=== PATIENT | female | born 1955 | race Caucasian/White ===

== ENCOUNTER → 2016-06-18 | Outpatient (CLI) | payer MEDICARE, OTHER ==
--- NOTE | 2016-06-18 12:31 | XR ---
EXAMINATION TYPE: XR chest 2V DATE OF EXAM: 06/18/2016 12:21 PM HISTORY: R09.89 respiratory symptoms M25.822 joint disorder. REFERENCE: NONE. FINDINGS: The lungs are overinflated but clear. Pleural spaces are clear. Heart size is normal. There is mild hypertrophic spondylosis within the spine. IMPRESSION: COPD.
--- NOTE | 2016-06-18 12:45 | XR ---
EXAMINATION TYPE: XR elbow complete RT DATE OF EXAM ORDERED: 06/18/2016 12:39 PM HISTORY: R09.89 respiratory symptoms M25.822 joint disorder. COMPARISON: None. FINDINGS: No fracture, dislocation or joint effusion is seen. The olecranon versus prominent. IMPRESSION: 1. NO ACUTE OSSEOUS LESION. 2. PROMINENCE OF THE OLECRANON BURSA.
== END ==
LOC: RADXRMAIN 11:45
PROVIDERS: ATTEND Family Medicine
DX: M25.822 Other specified joint disorders, left elbow (principal); J44.9 Chronic obstructive pulmonary disease, unspecified
CPT/HCPCS: 71020

== ENCOUNTER → 2016-08-13 | Outpatient (CLI) | payer MEDICARE, OTHER ==
--- NOTE | 2016-08-13 13:28 | XR ---
EXAMINATION TYPE: XR shoulder complete RT DATE OF EXAM ORDERED: 08/13/2016 HISTORY: M25.519 pain in right shoulder. COMPARISON: None. FINDINGS: There hypertrophic changes in the right AC joint. No fracture, dislocation or other acute osseous lesion is seen. IMPRESSION: 1. NO ACUTE OSSEOUS LESION. 2. HYPERTROPHIC CHANGE, RIGHT AC JOINT.
== END | disposition home or self-care (01) ==
LOC: RADXRMAIN 12:48
PROVIDERS: ATTEND Family Medicine
DX: M25.811 Other specified joint disorders, right shoulder (principal)

== ENCOUNTER → 2016-11-02 | Outpatient (CLI) | payer MEDICARE, OTHER ==
--- NOTE | 2016-11-04 12:06 | MM ---
Reason for exam: screening (asymptomatic). Last mammogram was performed 1 year ago. History: Patient is postmenopausal and is nulliparous. Physical Findings: A clinical breast exam by your physician is recommended on an annual basis and results should be correlated with mammographic findings. MG 3D Screening Mammo W/Cad Bilateral CC and MLO view(s) were taken. Prior study comparison: October 28, 2015, bilateral MG 3d screening mammo w/cad. September 18, 2014, bilateral MG screening mammo w CAD. There are scattered fibroglandular densities. No suspicious abnormality. No significant changes when compared with prior studies. ASSESSMENT: Negative, BI-RAD 1 RECOMMENDATION: Routine screening mammogram of both breasts in 1 year.
== END | disposition home or self-care (01) ==
LOC: RADMAMWWP 13:12
PROVIDERS: ATTEND Family Medicine
DX: Z12.31 Encounter for screening mammogram for malignant neoplasm of breast (principal)
CPT/HCPCS: 77063; G0202

== ENCOUNTER → 2018-01-17 | Outpatient (CLI) | payer MEDICARE, OTHER ==
--- NOTE | 2018-01-19 09:32 | MM ---
Reason for exam: screening (asymptomatic). Last mammogram was performed 1 year and 2 months ago. History: Patient is postmenopausal and is nulliparous. MG 3D Screening Mammo W/Cad Bilateral CC and MLO view(s) were taken. Prior study comparison: November 02, 2016, bilateral MG 3d screening mammo w/cad. October 28, 2015, bilateral MG 3d screening mammo w/cad. The breast tissue is almost entirely fat. No significant changes when compared with prior studies. ASSESSMENT: Negative, BI-RAD 1 RECOMMENDATION: Routine screening mammogram of both breasts in 1 year.
== END | disposition home or self-care (01) ==
LOC: RADMAMWWP 11:18
PROVIDERS: ATTEND Family Medicine
DX: Z12.31 Encounter for screening mammogram for malignant neoplasm of breast (principal)
CPT/HCPCS: 77063; 77067

== ENCOUNTER → 2018-02-20 | Outpatient (CLI) | payer MEDICARE, OTHER ==
--- NOTE | 2018-02-20 13:39 | XR ---
EXAMINATION TYPE: XR chest 2V DATE OF EXAM: 02/20/2018 COMPARISON: 06/18/2016 HISTORY: 62 year-old female other chest pain TECHNIQUE: Frontal and lateral views FINDINGS: Heart normal size. Mild elongation thoracic aorta. Mild interstitial prominence is unchanged. Some st wally scarring or atelectasis in the lung bases. No consolidation or pleural effusion. IMPRESSION: Chronic changes, possible bronchitis/asthma. Otherwise, no acute cardiopulmonary process.
== END ==
LOC: RADXRMAIN 11:44
PROVIDERS: ATTEND Family Medicine
DX: R07.89 Other chest pain (principal)
CPT/HCPCS: 71046

== ENCOUNTER → 2018-03-13 | Outpatient (CLI) | payer MEDICARE, OTHER ==
[~2018-03-13] MED LIST: REGADENOSON 0.4 MG/5 ML SYRINGE IV ONE
--- NOTE | 2018-03-13 11:21 | NM ---
EXAMINATION TYPE: NM stress lexiscan cardiolite DATE OF EXAM: 03/13/2018 COMPARISON: NONE HISTORY: History of tobacco use quit 9 years ago, COPD, family history of coronary artery disease, hy pertension, diabetes, angina, and hypercholesterolemia presents with chest pain, palpitations, and di fficulty in breathing. TECHNIQUE: After the intravenous administration of 10.4 mCi Tc 99m Sestamibi - Cardiolite resting SP ECT images acquired 45 minutes post injection. The patient received 0.4mg Lexiscan, 25.9 mCi Tc 99m Sestamibi - Stress images obtained [address] injection FINDINGS: Review of stress and rest SPECT images demonstrates no distinct perfusion abnormality. Gated analysi s shows normal wall motion with an estimated left ventricular ejection fraction of 67 %. IMPRESSION: No scintigraphic evidence for reversible ischemia.
--- NOTE | 2018-03-14 07:39 | EST ---
EXERCISE STRESS AGE: 62 SEX: F HT: 5'6" WT: 195 PROTOCOL: Lexiscan Cardiolite Stress Test HEART RATE REST: 68 BLOOD PRESSURE REST: 130/72 MAXIMUM HEART RATE ACHIEVED: 76 MAXIMUM BLOOD PRESSURE: 117/67 85% MPHR: 133 100% MPHR: 157 INDICATIONS: Chest pain. CLINICAL INFORMATION: Baseline EKG revealed normal sinus rhythm without significant ST-T changes. With Lexiscan administration, heart rate changed from 68-76 beats per minute blood pressure changed from 130/72 to 117/67. EKG was unremarkable and patient did not have any significant symptoms. By EKG criteria, this is unremarkable Lexiscan stress test. The nuclear scan results which are more pertinent, will be reported by the radiologist. MMODL / IJN: [id number] /
== END ==
LOC: RADNMMAIN 08:04
PROVIDERS: ATTEND Family Medicine
DX: R07.89 Other chest pain (principal)
CPT/HCPCS: 93017; 78452; A9500; J2785

== ENCOUNTER → 2018-12-01 | Outpatient (CLI) | payer MEDICARE ==
--- NOTE | 2018-12-01 16:01 | US ---
EXAMINATION TYPE: US pelvic complete DATE OF EXAM: 12/01/2018 COMPARISON: NONE CLINICAL HISTORY: R10.2 pelvic and perineal pain. Intermittent pelvic pain x 2 months, takes laxative s, post gastric bypass 3 years ago, menopause mid to late 50's; TECHNIQUE: Transvaginal (TV). Transvaginal sonographic images were medically necessary to better as sess anatomy as bladder not full. Date of LMP: postmenopausal EXAM MEASUREMENTS: Uterus: 4.8 x 3.0 x 2.3 cm Endometrial Stripe: 0.4 cm Right Ovary: not seen Left Ovary: 1.5 x 1.1 x 1.2 cm 1. Uterus: anteverted; multiple small Nabothian Cysts in cervix 2. Endometrium: thickness wnl for postmenopause status 3. Right Ovary: not seen; overlying bowel gas is noted 4. Left Ovary: wnl, small follicles 5. Bilateral Adnexa: wnl 6. Posterior cul-de-sac: wnl IMPRESSION: 1. Normal pelvic ultrasound as visualized.
== END ==
LOC: RADUSWWP 14:45
PROVIDERS: ATTEND Family Medicine
DX: R10.2 Pelvic and perineal pain (principal)
CPT/HCPCS: 76830

== ENCOUNTER → 2019-01-17 | Outpatient (CLI) | payer MEDICARE ==
--- NOTE | 2019-01-17 15:50 | P.HPBAR ---
Bariatric H&P - History & Physicial H&P Date: 01/17/19 History & Physicial: Visit/CC: Patient initial contact: Initial weight: 156.263 kg Initial weight in pounds: Height: Initial BMI: Last weight: Current weight: Current weight in pounds: Current BMI: [place] body weight (based on NIH guidelines): Excess body weight loss: The patient is a 63 year-old F who presents for Bariatric Assessment. DATE OF SERVICE: 01/17/2019 CHIEF COMPLAINT: Follow-up gastric bypass. HISTORY OF PRESENT ILLNESS: Samantha Priest is a 63-year-old female who is status post Laila-en-Y gastric bypass January 13, 2015. She is 4 years out. She comes in with weight gain after her last visit 3 years ago. Her lowest weight was in the 170s. She comes in with epigastric abdominal pain and bilate ral lower abdominal pain. She has foul flatus. She reports falling. Her memory is sporadic. She take [employer] MVI. She has constipation. She reports emesis for many years. She reports nausea. She denies blood in stools. She reports lower abdominal pain. Her last colonoscopy was 5 years ago. She has family history of colon cancer. Her aunt had Crohn's disease. She is back on diabetic medications. Her highest weight in the program was 345 pounds for her 5 feet 6 inches frame. Her ideal body weight is 154 pounds. Today she comes in weighing 202 pounds from 223 pounds, 3 years ago. She has lost 21 pounds in 3 years. She has lost 143 pounds, lifetime. Percent excess weight loss is 75 %. Body mass index has been reduced from 55.8 to 32.7. PAST MEDICAL HISTORY: 1. Osteoarthritis of bilateral knees. 2. Hypercholesterolemia. 3. Diabetes type 2. 4. Dyslipidemia. 5. Hypertension. 6. Depression. 7. Morbid obesity due to excess calories, BMI 55.8 initial PAST SURGICAL HISTORY: 1. Appendectomy. 2. Adenoidectomy. 3. Cholecystectomy. 4. Bilateral knee replacement. 5. Tonsillectomy. 6. D and C. 7. Bilateral cataract extraction. 8. Status post Laila-en-Y gastric bypass. MEDICATIONS: 1. Calcium citrate. 2. Multivitamin. 3. [place]. 4. Lasix. 5. Cymbalta. ALLERGIES: 1. PENICILLIN. 2. TRACE METALS. SOCIAL HISTORY: Remote tobacco use. Denies any active alcohol use. FAMILY HISTORY: Pertinent for stomach cancer in her grandmother's side. Also she had a cousin who of rectal cancer. Denies any family history of food allergies of blood clots. She did have a mother who had DVT from taking control. No reports of inflammatory bowel disease. REVIEW OF SYSTEMS: CONSTITUTIONAL: Her highest weight in the program was 345 pounds for her 5 feet 6 inches frame. Her ideal body weight is 154 pounds. Body mass index has been reduced from 55.9. MUSCULOSKELETAL: Moderate improvement of lower back pain including hip and knee pain. ENDOCRINE: Resolved diabetes type 2. She is off insulin. GASTROINTESTINAL: Has change in bowel habits. Resolved gastroesophageal reflux disease. CARDIOVASCULAR: Moderate improvement of hypertension. RESPIRATORY: Reduction of use of her CPAP machine. HEENT: Has poor dentition. She is edentulous of the maxilla. Reports of dysphagia. NEURO: No gross or secretions stroke or seizure disorders. PSYCH: History of depression without suicidal ideation. SKIN: No skin cancer. No rash GENITOURINARY: No blood in urine. No bladder hesistancy HEME: No recent DVTs. PHYSICAL EXAM: VITAL SIGNS: 5 feet 6 inches, 202 pounds, BMI 32.2 Vital Signs Temp 98.3 F 01/17/19 15:54 Pulse 102 H 01/17/19 15:54 Resp BP 138/86 01/17/19 15:54 Pulse Ox ABDOMEN: No palpable incisional hernias. No acute panniculitis. MUSCULOSKELETAL: No clubbing, cyanosis, or edema. GENERAL: Well-developed pleasant female in no acute distress. PSYCH: Appropriate affect. Alert and oriented to person, place and time. HEENT: No scleral icterus. Wears glasses. Extraocular movements grossly intact. Moist buccal mucosa. NECK: Supple without lymphadenopathy. CHEST: Unlabored respirations. Equal bilateral excursions. CARDIOVASCULAR: Tachycardia. Distal 2+ pulses. SKIN: Well perfused. Good skin turgor. NEURO: Cranial nerves I to XII grossly intact. No focal or lateralizing signs. ASSESSMENT: 1. Morbid obesity due to excess caloric intake. 2. Body mass index reduced from 55.9 to 32.2. 3. Status post Laila-en-Y gastric bypass. 4. Osteoarthritis of the bilateral knees, moderate, improved. 5. Diabetes, type 2, insulin-dependent. 6. Dietary surveillance and counseling. 7. Osteoarthritis of the bilateral knees due to morbid obesity. 8. Iron deficiency 9. Hypomagnesium. 10. Protein malnutrition. 11. Dysphagia 12. Change in bowel habits. PLAN: 1. Recommend CT of the abdomen and pelvis for evaluation for small bowel o bstruction 2. Recommend upper endoscopy for dysphagia. 3. Recommend lower endoscopy for change in bowel habits 4. Recommend bariatric labs for nutritional deficiencies. Laboratory Last Values WBC 8.8 k/uL (3.8-10.6) 01/17/19 16:09 RBC 4.70 m/uL (3.80-5.40) 01/17/19 16:09 Hgb 13.9 gm/dL (11.4-16.0) 01/17/19 16:09 Hct 42.6 % (34.0-46.0) 01/17/19 16:09 MCV 90.7 fL (80.0-100.0) 01/17/19 16:09 MCH 29.7 pg (25.0-35.0) 01/17/19 16:09 MCHC 32.7 g/dL (31.0-37.0) 01/17/19 16:09 RDW 13.1 % (11.5-15.5) 01/17/19 16:09 Plt Count 228 k/uL (150-450) 01/17/19 16:09 PT 10.6 sec (9.0-12.0) 01/17/19 16:09 INR 1.0 (<1.2) 01/17/19 16:09 APTT 28.1 sec (22.0-30.0) 01/17/19 16:09 Sodium 144 mmol/L (135-145) 01/17/19 16:09 Potassium 4.0 mmol/L (3.5-5.5) 01/17/19 16:09 Chloride 105 mmol/L (96-109) 01/17/19 16:09 Carbon Dioxide 29.7 mmol/L (21.6-31.8) 01/17/19 16:09 Anion Gap 9.30 mmol/L (4.00-12.00) 01/17/19 16:09 BUN 11.0 mg/dL (9.0-27.0) 01/17/19 16:09 Creatinine 0.6 mg/dL (0.6-1.5) 01/17/19 16:09 Est GFR (CKD-EPI)AfAm 111.6 (60.0-200.0) 01/17/19 16:09 Est GFR (CKD-EPI)NonAf 96.3 (60.0-200.0) 01/17/19 16:09 BUN/Creatinine Ratio 18.33 Ratio (12.00-20.00) 01/17/19 16:09 Glucose 99 mg/dL (70-110) 01/17/19 16:[address] Glu mg/dL 137 01/17/19 16:09 Hemoglobin A1c 6.4 % (4.0-6.0) H 01/17/19 16:09 Calcium 9.2 mg/dL (8.7-10.3) 01/17/19 16:09 Phosphorus 3.4 mg/dL (2.4-5.1) 01/17/19 16:09 Magnesium 1.3 mg/dL (1.5-2.4) L 01/17/19 16:09 Iron 39 ug/dL (50-170) L 01/17/19 16:09 TIBC 334 ug/dL (228-460) 01/17/19 16:09 % Saturation 11.68 (12.00-45.00) L 01/17/19 16:09 Ferritin 26.3 ng/mL (10.0-291.0) 01/17/19 16:09 Total Bilirubin 0.2 mg/dL (0.3-1.2) L 01/17/19 16:09 AST 31 U/L (13-35) 01/17/19 16:09 ALT 21 U/L (8-44) 01/17/19 16:09 Alkaline Phosphatase 137 U/L (41-126) H 01/17/19 16:09 Total Protein 6.1 g/dL (6.2-8.2) L 01/17/19 16:09 Albumin 4.10 g/dL (3.80-4.90) 01/17/19 16:09 Globulin 2.0 g/dL (1.6-3.3) 01/17/19 16:09 Albumin/Globulin Ratio 2.05 g/dL (1.60-3.17) 01/17/19 16:09 Prealbumin 16.0 mg/dL (18.0-42.0) L 01/17/19 16:09 Triglycerides 96.0 mg/dL (0.0-149.0) 01/17/19 16:09 Cholesterol 127 mg/dL (0-200) 01/17/19 16:09 LDL Cholesterol, Calc 45.8 mg/dL (0.0-131.0) 01/17/19 16:09 VLDL Cholesterol, Calc 19.20 mg/dL (5.00-40.00) 01/17/19 16:09 HDL Cholesterol 62.0 mg/dL (40.0-60.0) H 01/17/19 16:09 Cholesterol/HDL Ratio 2.05 01/17/19 16:09 Vitamin A 47 ug/dL (38-106) 01/17/19 16:09 Vitamin B1 83 ug/L (38-122) 01/17/19 16:09 Vitamin B12 475.0 pg/mL (200.0-944.0) 01/17/19 16:09 Vitamin D 25-Hydroxy 35.1 ng/mL (30.0-100.0) 01/17/19 16:09 Folate >24.0 ng/mL 01/17/19 16:09 TSH 1.060 uIU/mL (0.350-5.500) 01/17/19 16:09 PTH Intact 57.5 pg/mL (14.0-72.0) 01/17/19 16:09 Copper 987 ug/L (810-1990) 01/17/19 16:09 Selenium 119 mcg/L (63-160) 01/17/19 16:09 Zinc 80 ug/dL (60-130) 01/17/19 16:09 Magnesium is low Iron is low Total protein is low Pre-albumin is low Past Medical History Past Medical History: Chest Pain / Angina, COPD, Diabetes Mellitus, GERD/Reflux, Hyperlipidemia, Hypertension, Osteoarthritis (OA), Skin Disorder, Sleep Apnea/CP AP/BIPAP Additional Past Medical History / Comment(s): 01/13/15 Pt admitted to floor s/p laparoscopic Laila En Y gastric bypass. Other HX: IDDM type II, PM>2 YRS,VARICOSE VEINS, NEUROPATHY MIR LEGS, arthritis bilateral knees. History of Any Multi-Drug Resistant Organisms: None Reported Past Surgical History: Adenoidectomy, Appendectomy, Bariatric Surgery, Cholecystectomy, Orthopedic Surgery, Tonsillectomy Additional Past Surgical History / Comment(s): 01/13/15 Lap laila en Y gastric bypass. Other SX: MIR KNEE ARTHROSCOPIES, MIR KNEE REPLACEMENTS, D&C, MIR CATARACTS Past Anesthesia/Blood Transfusion Reactions: No Reported Reaction Past Psychological History: Anxiety, Depression Smoking Status: Former smoker - Past Family History Mother Family Medical History: Cancer, Deep Vein Thrombosis (DVT) Results - Labs 01/17/19 16:09 01/17/19 16:09 Bariatric Checklist Checklist: Plan: Checklist: EGD: 1. Hiatal hernia: 2. H. Pylori: HgbA1c: Vitamin D: Smoking: Former smoker Primary care physician referral: Psychiatry clearance: Cardiology clearance: Sleep study: Diet journal: VTE risk score: VTE risk level: Rehab needs at discharge:
[2019-01-17 16:27] VITALS: BP 138/86; PULSE 102; TEMP 98.3; BMI 32.1
[2019-01-17 16:57] LABS: HCT 42.6 % (34.0-46.0); HGB 13.9 gm/dL (11.4-16.0); MCH 29.7 pg (25.0-35.0); MCHC 32.7 g/dL (31.0-37.0); MCV 90.7 fL (80.0-100.0); Mean Platelet Volume 7.1; Platelet Count 228 k/uL (150-450); RDW 13.1 % (11.5-15.5); WBC 8.8 k/uL (3.8-10.6)
[2019-01-17 17:08] LABS: Partial Thromboplastin Time 28.1 sec (22.0-30.0); Prothrombin Time 10.6 sec (9.0-12.0)
[2019-01-17 23:49] LABS: Ferritin 26.3 ng/mL (10.0-291.0)
[2019-01-17 23:53] LABS: % Iron Saturation 11.68 (12.00-45.00); ALT 21 U/L (8-44); AST 31 U/L (13-35); African American GFR (CKD) 111.6 (60.0-200.0); Albumin/Globulin Ratio 2.05 (1.60-3.17); Alkaline Phosphatase 137 U/L (41-126); BUN/Creat Ratio 18.33 Ratio (12.00-20.00); Calcium 9.2 mg/dL (8.7-10.3); Carbon Dioxide 29.7 mmol/L (21.6-31.8); Chloride 105 mmol/L (96-109); Chol/HDL Ratio 2.05; Cholesterol 127 mg/dL (0-200); Folate, Serum >24.0 ng/mL; Glucose 99 mg/dL (70-110); Iron 39 ug/dL (50-170); LDL Cholesterol,Calculated 45.8 mg/dL (0.0-131.0); Magnesium 1.3 mg/dL (1.5-2.4); Non-African American GFR(CKD) 96.3 (60.0-200.0); Phosphorus 3.4 mg/dL (2.4-5.1); Sodium 144 mmol/L (135-145); Total Bilirubin 0.2 mg/dL (0.3-1.2); Total Iron Binding Capacity 334 ug/dL (228-460); Total Protein 6.1 g/dL (6.2-8.2)
[2019-01-18 04:25] LABS: Hemoglobin A1C 6.4 % (4.0-6.0)
[2019-01-18 12:22] LABS: Zinc, Serum 80 ug/dL (60-130)
[2019-01-18 13:41] LABS: Vitamin A 47 ug/dL (38-106)
[2019-01-19 09:51] LABS: Vit B1(Thiamine) 83 ug/L (38-122)
[2019-01-29 11:27] LABS: Selenium 119 mcg/L (63-160)
== END | disposition home or self-care (01) ==
LOC: BARWHC3 14:01
PROVIDERS: ATTEND Surgery Plastic and Reconstructive Surgery
DX: E66.01 Morbid (severe) obesity due to excess calories (principal); Z68.36 Body mass index [BMI] 36.0-36.9, adult; E11.9 Type 2 diabetes mellitus without complications; Z71.3 Dietary counseling and surveillance; M17.0 Bilateral primary osteoarthritis of knee; E21.1 Secondary hyperparathyroidism, not elsewhere classified; E89.1 Postprocedural hypoinsulinemia; D50.9 Iron deficiency anemia, unspecified; K90.9 Intestinal malabsorption, unspecified; E55.9 Vitamin D deficiency, unspecified; K74.1 Hepatic sclerosis; K50.90 Crohn's disease, unspecified, without complications; Z86.39 Personal history of other endocrine, nutritional and metabolic disease; Z87.891 Personal history of nicotine dependence; Z90.49 Acquired absence of other specified parts of digestive tract; N19 Unspecified kidney failure; Z98.84 Bariatric surgery status; Z98.890 Other specified postprocedural states; Z79.4 Long term (current) use of insulin; Z79.891 Long term (current) use of opiate analgesic; Z79.899 Other long term (current) drug therapy; Z88.0 Allergy status to penicillin; Z91.048 Other nonmedicinal substance allergy status
CPT/HCPCS: 84255; 84134; 84425; 80061; 80053; 82607; 82728; 82525; 82746; 83540; 83550; 83735; 84100; 84443; 84590; 84630; 85027; 85610; 85730; 82306; 83970; 83036; G0463; 99211

== ENCOUNTER 2019-01-22 19:14 | Emergency (ER) | payer MEDICARE ==
[2019-01-22 19:22] VITALS: TEMP 98.9
[2019-01-22] MEDS ORDERED: SODIUM CHLORIDE 0.9% 1,000 ML IV STA ×2 (19:38→21:55)
[2019-01-22] MEDS ORDERED: IOPAMIDOL CONTRAST (ORAL USE) VIAL PO PRN (20:28)
[2019-01-22 20:39] LABS: Basophils # (A) 0.1 k/uL (0-0.2); Basophils % (A) 1 %; Eosinophils # (A) 0.2 k/uL (0-0.7); Eosinophils % (A) 2 %; HCT 42.8 % (34.0-46.0); HGB 14.3 gm/dL (11.4-16.0); Lymphocytes # (A) 2.1 k/uL (1.0-4.8); Lymphocytes % (A) 21 %; MCH 29.9 pg (25.0-35.0); MCHC 33.3 g/dL (31.0-37.0); MCV 89.7 fL (80.0-100.0); Mean Platelet Volume 7.2; Monocytes # (A) 0.5 k/uL (0-1.0); Monocytes % (A) 5 %; Neutrophils # (A) 7.1 k/uL (1.3-7.7); Neutrophils % (A) 71 %; Platelet Count 216 k/uL (150-450); RBC 4.77 m/uL (3.80-5.40)
[2019-01-22 20:46] LABS: ALT 23 U/L (9-52); AST 29 U/L (14-36); African American GFR (CKD) >90 (>60 ml/min/1.73 sqM); Alkaline Phosphatase 116 U/L (38-126); Amylase 62 U/L (30-110); Anion Gap 9 mmol/L; Blood Urea Nitrogen 10 mg/dL (7-17); Calcium 9.7 mg/dL (8.4-10.2); Carbon Dioxide 28 mmol/L (22-30); Chloride 103 mmol/L (98-107); Glucose 162 mg/dL (74-99); Non-African American GFR(CKD) >90 (>60 ml/min/1.73 sqM); Potassium 4.4 mmol/L (3.5-5.1); Sodium 140 mmol/L (137-145); Total Bilirubin 0.5 mg/dL (0.2-1.3); Total Protein 7.1 g/dL (6.3-8.2)
[2019-01-22 20:59] LABS: Appearance,Urine Clear (Clear); Bilirubin,Urine Negative (Negative); Blood,Urine Negative (Negative); Color,Urine Yellow; Glucose,Urine (UA) Negative (Negative); Ketones,Urine 1+ (Negative); Leukocyte Esterase,Urine Trace (Negative); Mucus,Urine Rare /hpf; Nitrite,Urine Negative (Negative); PH, Urine 7.5 (5.0-8.0); Protein,Urine Trace (Negative); RBC,Urine 1 /hpf (0-5); Specific Gravity,Urine 1.021 (1.001-1.035)
--- NOTE | 2019-01-22 21:17 | CT ---
EXAMINATION TYPE: CT abdomen pelvis w con DATE OF EXAM: 01/22/2019 COMPARISON: 02/18/2017 HISTORY: Epigastric pain x couple days with nausea. CT DLP: 1324.5 mGycm CONTRAST: CT scan of the abdomen and pelvis is performed with Oral Contrast and with IV Contrast, patient injec matthias with 100 mL of Isovue 300. FINDINGS: LUNG BASES-: No visible nodule. No infiltrate. LIVER/GB: The gallbladder is surgically absent. No space occupying hepatic lesion. Biliary tree is of normal caliber. PANCREAS: Mild inflammatory change surrounds the pancreas compatible with pancreatitis. No abnormal c ollection. SPLEEN: No splenic enlargement. No lesion seen. ADRENALS: No nodule. No thickening. KIDNEYS/BLADDER: No hydronephrosis. No nephrolithiasis. No distinct renal mass. Urinary bladder g rossly unremarkable. BOWEL: Normal appendix. Normal bowel caliber. No inflammation. Postoperative changes of the stomach and small bowel. GENITAL ORGANS: No gross abnormality. LYMPH NODES: No greater than 1cm abdominal or pelvic lymph nodes are appreciated. AORTA: No significant abnormality. OSSEOUS STRUCTURES: No significant abnormality is seen. OTHER: No significant additional abnormality is seen. IMPRESSION: 1. Findings compatible with mild acute pancreatitis.
[2019-01-22 21:58] VITALS: RESP 16
[2019-01-22] MEDS ORDERED: SODIUM CHLORIDE 0.9% 500 ML IV STA (22:03)
--- NOTE | 2019-01-22 22:08 | ED ---
General Adult HPI - General Chief complaint: Abdominal Pain Stated complaint: TIGHTNESS IN CHEST Time Seen by Provider: 01/22/19 19:36 Source: patient, RN notes reviewed, old records reviewed Mode of arrival: ambulatory Limitations: no limitations - History of Present Illness Initial comments: 63-year-old female patient past history significant for gastric bypass in 2014 presents ED chief complaint epigastric pain. Patient reports this pain has been ongoing for approximately 2 weeks. Describes it as a dull pain. Denies any association of food. Denies any pain in any of the areas, shortness of breath. Systemic: Pt denies fatigue, fever/chills, rash. Pt denies weakness, night sweats, weight loss. Neuro: Pt denies headache, visual disturbances, syncope or pre-syncope. HEENT: Pt denies ocular discharge or irritation, otalgia, rhinorrhea, pharyn gitis or notable lymphadenopathy. Cardiopulmonary: Pt denies chest pain, SOB, heart palpitations, dyspnea on exertion. Abdominal/GI: Pt denies abdominal pain, n/v/d. : Pt denies dysuria, burning w/ urination, frequency/urgency. Denies new onset urinary or bowel incontinence. MSK: Pt denies myalgia, loss of strength or function in extremities. Neuro: Pt denies new onset weakness, paresthesias. - Related Data Home Medications Medication Instructions Recorded Confirmed DULoxetine HCL [Cymbalta] 60 mg PO BID 09/10/13 01/17/19 Multivitamins, Thera [Theragran] 3 tab PO DAILY 01/02/15 01/17/19 Bisacodyl [Dulcolax] 5 mg PO DAILY 01/17/19 01/17/19 Lisinopril [Zestril] 5 mg PO DAILY 01/17/19 01/17/19 Ranitidine HCl [Zantac] 150 mg PO DAILY 01/17/19 01/17/19 Simvastatin [Zocor] 20 mg PO DAILY 01/17/19 01/17/19 sitaGLIPtin [Januvia] 25 mg PO DAILY 01/17/19 01/17/19 traZODone HCL [Desyrel] 100 mg PO DAILY 01/17/19 01/17/19 Previous Rx's Medication Instructions Recorded Vitamin A 8,000 unit PO DAILY #90 capsule 10/05/16 Allergies Allergy/AdvReac Type Severity Reaction Status Date / Time Penicillins Allergy Severe Unknown Verified 01/22/19 19:22 Childhood TRACE METALS Allergy itching,rachna Uncoded 01/22/19 19:22 h Review of Systems ROS Statement: Those systems with pertinent positive or pertinent negative responses have been documented in the HPI. ROS Other: All systems not noted in ROS Statement are negative. Past Medical History Past Medical History: Chest Pain / Angina, COPD, Diabetes Mellitus, GERD/Reflux, Hyperlipidemia, Hypertension, Osteoarthritis (OA), Skin Disorder, Sleep Apnea/CPAP/BIPAP Additional Past Medical History / Comment(s): 01/13/15 Pt admitted to floor s/p laparoscopic Laila En Y gastric bypass. Other HX: IDDM type II, PM>2 YRS,VARICOSE VEINS, NEUROPATHY MIR LEGS, arthritis bilateral knees. History of Any Multi-Drug Resistant Organisms: None Reported Past Surgical History: Adenoidectomy, Appendectomy, Bariatric Surgery, Cholecystectomy, Orthopedic Surgery, Tonsillectomy Additional Past Surgical History / Comment(s): 01/13/15 Lap laila en Y gastric bypass. Other SX: MIR KNEE ARTHROSCOPIES, MIR KNEE REPLACEMENTS, D&C, MIR CATARACTS Past Anesthesia/Blood Transfusion Reactions: No Reported Reaction Past Psychological History: Anxiety, Depression Smoking Status: Former smoker Past Alcohol Use History: None Reported Past Drug Use History: None Reported - Past Family History Mother Family Medical History: Cancer, Deep Vein Thrombosis (DVT) General Exam - General Exam Comments Initial Comments: Constitutional: NAD, AOX3, Pt has pleasant affect. HEENT: NC/AT, trachea midline, neck supple, no lymphadenopathy. Posterior pharynx non erythematous, without exudates. External ears appear normal, without discharge. Mucous membranes moist. Eyes PERRLA, EOM intact. There is no scleral icterus. No pallor noted. Cardiopulmonary: RRR, no murmurs, rubs or gallops, no JVD noted. Lungs CTAB in anterior and posterior graves. No peripheral edema. Abdominal exam: Abdomen soft and non-distended. Abdomen mildly tender to palpation in epigastric region. No other areas of abdominal tenderness.. Bowel sounds active in LLQ. No hepatosplenomegaly. No ecchymosis Neuro: CN II-XII grossly intact. No nuchal rigidity. No raccon eyes, no torres sign, no hemotympanum. No cervical spinal tenderness. MSK: No posterior calf tenderness bilaterally, homans sign negative bilaterally. Posterior tibialis and radial pulse +2 bilaterally. Sensation intact in upper and lower extremities. Full active ROM in upper and lower extremities, 5/5 stregnth. Limitations: no limitations Course Vital Signs 01/22/19 01/22/19 01/22/19 19:20 19:54 20:00 Temperature 98.9 F Pulse Rate 91 71 75 Respiratory 20 13 15 Rate Blood Pressure 150/88 178/106 O2 Sat by Pulse 98 94 L Oximetry 01/22/19 20:20 Temperature Pulse Rate 61 Respiratory 16 Rate Blood Pressure 179/95 O2 Sat by Pulse 96 Oximetry Medical Decision Making - Medical Decision Making 63-year-old female patient past history significant for gastric bypass in 2014 presents ED chief complaint epigastric pain. Patient reports this pain has been ongoing for approximately 2 weeks. Describes it as a dull pain. Denies any association of food. Denies any pain in any of the areas, shortness of breath. Pt VSS, afebrile. Physical exam displayed: Abdomen mildly tender to palpation in epigastric region. Laboratory investigations consistent with mild pancreatitis. Lipase is 421. CT confirmed mild pancreatitis. Patient tolerating oral intake. Patient administered 1.5 L normal saline. Patient discharge and close outpatient follow-up with primary care provider. Case discussed with Dr. Alicea. - Lab Data Result diagrams: 01/22/19 19:45 01/22/19 19:45 Lab Results 01/22/19 01/22/19 01/22/19 Range/Units 19:45 19:45 19:45 WBC 10.0 (3.8-10.6) k/uL RBC 4.77 (3.80-5.40) m/uL Hgb 14.3 (11.4-16.0) gm/dL Hct 42.8 (34.0-46.0) % MCV 89.7 (80.0-100.0) fL MCH 29.9 (25.0-35.0) pg MCHC 33.3 (31.0-37.0) g/dL RDW 13.0 (11.5-15.5) % Plt Count 216 (150-450) k/uL Neutrophils % 71 % Lymphocytes % 21 % Monocytes % 5 % Eosinophils % 2 % Basophils % 1 % Neutrophils # 7.1 (1.3-7.7) k/uL Lymphocytes # 2.1 (1.0-4.8) k/uL Monocytes # 0.5 (0-1.0) k/uL Eosinophils # 0.2 (0-0.7) k/uL Basophils # 0.1 (0-0.2) k/uL Sodium 140 (137-145) mmol/L Potassium 4.4 (3.5-5.1) mmol/L Chloride 103 (98-107) mmol/L Carbon Dioxide 28 (22-30) mmol/L Anion Gap 9 mmol/L BUN 10 (7-17) mg/dL Creatinine 0.51 L (0.52-1.04) mg/dL Est GFR (CKD-EPI)AfAm >90 (>60 ml/min/1.73 sqM) Est GFR (CKD-EPI)NonAf >90 (>60 ml/min/1.73 sqM) Glucose 162 H (74-99) mg/dL Plasma Lactic Acid Bradly 1.4 (0.7-2.0) mmol/L Calcium 9.7 (8.4-10.2) mg/dL Total Bilirubin 0.5 (0.2-1.3) mg/dL AST 29 (14-36) U/L ALT 23 (9-52) U/L Alkaline Phosphatase 116 (38-126) U/L Troponin I (0.000-0.034) ng/mL Total Protein 7.1 (6.3-8.2) g/dL Albumin 4.0 (3.5-5.0) g/dL Amylase 62 (30-110) U/L Lipase 429 H (23-300) U/L Urine Color Urine Appearance (Clear) Urine pH (5.0-8.0) Ur Specific [place] (1.001-1.035) Urine Protein (Negative) Urine Glucose (UA) (Negative) Urine Ketones (Negative) Urine Blood (Negative) Urine Nitrite (Negative) Urine Bilirubin (Negative) Urine Urobilinogen (<2.0) mg/dL Ur Leukocyte Esterase (Negative) Urine RBC (0-5) /hpf Urine WBC (0-5) /hpf Urine Mucus (None) /hpf 01/22/19 01/22/19 Range/Units 19:45 20:33 WBC (3.8-10.6) k/uL RBC (3.80-5.40) m/uL Hgb (11.4-16.0) gm/dL Hct (34.0-46.0) % MCV (80.0-100.0) fL MCH (25.0-35.0) pg MCHC (31.0-37.0) g/dL RDW (11.5-15.5) % Plt Count (150-450) k/uL Neutrophils % % Lymphocytes % % Monocytes % % Eosinophils % % Basophils % % Neutrophils # (1.3-7.7) k/uL Lymphocytes # (1.0-4.8) k/uL Monocytes # (0-1.0) k/uL Eosinophils # (0-0.7) k/uL Basophils # (0-0.2) k/uL Sodium (137-145) mmol/L Potassium (3.5-5.1) mmol/L Chloride (98-107) mmol/L Carbon Dioxide (22-30) mmol/L Anion Gap mmol/L BUN (7-17) mg/dL Creatinine (0.52-1.04) mg/dL Est GFR (CKD-EPI)AfAm (>60 ml/min/1.73 sqM) Est GFR (CKD-EPI)NonAf (>60 ml/min/1.73 sqM) Glucose (74-99) mg/dL Plasma Lactic Acid Bradly (0.7-2.0) mmol/L Calcium (8.4-10.2) mg/dL Total Bilirubin (0.2-1.3) mg/dL AST (14-36) U/L ALT (9-52) U/L Alkaline Phosphatase (38-126) U/L Troponin I <0.012 (0.000-0.034) ng/mL Total Protein (6.3-8.2) g/dL Albumin (3.5-5.0) g/dL Amylase (30-110) U/L Lipase (23-300) U/L Urine Color Yellow Urine Appearance Clear (Clear) Urine pH 7.5 (5.0-8.0) Ur Specific [place] 1.021 (1.001-1.035) Urine Protein Trace H (Negative) Urine Glucose (UA) Negative (Negative) Urine Ketones 1+ H (Negative) Urine Blood Negative (Negative) Urine Nitrite Negative (Negative) Urine Bilirubin Negative (Negative) Urine Urobilinogen 2.0 (<2.0) mg/dL Ur Leukocyte Esterase Trace H (Negative) Urine RBC 1 (0-5) /hpf Urine WBC 5 (0-5) /hpf Urine Mucus Rare H (None) /hpf - EKG Data -: EKG Interpreted by Me (and Dr. Alicea) EKG Comments: Sinus rhythm with sinus arrhythmia, left axis deviation, cannot rule out inferior infarct age undetermined, abnormal EKG, no concern for acute ischemia at this time. Disposition Clinical Impression: Acute pancreatitis Disposition: HOME SELF-CARE Condition: Stable Instructions (If sedation given, give patient instructions): Pancreatitis (ED) Additional Instructions: Follow-up with primary care provider tomorrow. Return to ER if condition worsens in anyway. Is patient prescribed a controlled substance at d/c from ED?: No Referrals: Mamadou Gerard DO [Primary Care Provider] - 1-2 days
[2019-01-22] MEDS ORDERED: MORPHINE SULFATE 4 MG/ML SYRINGE IV STA (22:25)
[2019-01-22 23:10] VITALS: BP 147/100; PULSE 84
== END 2019-01-22 23:09 | disposition home or self-care (01) ==
LOC: EC 19:14
DX: K85.90 Acute pancreatitis without necrosis or infection, unspecified (principal); E11.42 Type 2 diabetes mellitus with diabetic polyneuropathy; K21.9 Gastro-esophageal reflux disease without esophagitis; E78.5 Hyperlipidemia, unspecified; I10 Essential (primary) hypertension; M17.0 Bilateral primary osteoarthritis of knee; G47.30 Sleep apnea, unspecified; F32.9 Major depressive disorder, single episode, unspecified; F41.9 Anxiety disorder, unspecified; Z87.891 Personal history of nicotine dependence; Z88.0 Allergy status to penicillin; Z91.048 Other nonmedicinal substance allergy status; Z79.84 Long term (current) use of oral hypoglycemic drugs; Z79.899 Other long term (current) drug therapy; Z98.84 Bariatric surgery status; Z90.49 Acquired absence of other specified parts of digestive tract; Z96.653 Presence of artificial knee joint, bilateral; Z99.89 Dependence on other enabling machines and devices
CPT/HCPCS: 36415; 93005; 80053; 82150; 83605; 83690; 84484; 85025; 81001; 74177; 99285; 96374; 96361 ×3; J2270; Q9967

== ENCOUNTER 2019-01-24 09:19 | Inpatient (IN) | payer MEDICARE ==
[2019-01-24] MEDS ORDERED: MORPHINE SULFATE 4 MG/ML SYRINGE IV STA (09:34)
[2019-01-24] MEDS ORDERED: PANTOPRAZOLE 40 MG/10 ML VIAL IVP STA (09:34)
[2019-01-24] MEDS ORDERED: ONDANSETRON 4 MG/2 ML VIAL IVP STA (09:34)
[2019-01-24] MEDS ORDERED: SODIUM CHLORIDE 0.9% 1,000 ML IV STA ×2 (09:34)
--- NOTE | 2019-01-24 09:37 | ED ---
Abdominal Pain HPI - General Chief Complaint: Abdominal Pain Stated Complaint: upper abd pain Time Seen by Provider: 01/24/19 09:20 Source: patient, EMS, RN notes reviewed, old records reviewed Mode of arrival: EMS Limitations: no limitations - History of Present Illness Initial Comments: Patient is a 63-year-old female, she was sent from her primary care doctor's office for complaints of chest and epigastric abdominal pain for the past 3 days. Patient reports that the pain is worse with exertion. She reports his been worse since her ER visit on the . Patient states that she followed up with her surgeon as she was initially diagnosed with mild pancreatitis. She states that she's had some nausea but denies any significant shortness of laila ath. Denies Vomiting. Patient states that she has no previous cardiac history. - Related Data Home Medications Medication Instructions Recorded Confirmed DULoxetine HCL [Cymbalta] 60 mg PO BID 09/10/13 01/24/19 Multivitamins, Thera [Theragran] 3 tab PO DAILY 01/02/15 01/24/19 Bisacodyl [Dulcolax] 5 mg PO DAILY 01/17/19 01/24/19 Lisinopril [Zestril] 5 mg PO DAILY 01/17/19 01/24/19 Simvastatin [Zocor] 20 mg PO HS 01/17/19 01/24/19 sitaGLIPtin [Januvia] 25 mg PO DAILY 01/17/19 01/24/19 traZODone HCL [Desyrel] 100 mg PO HS 01/17/19 01/24/19 HYDROcodone/APAP 10-325MG [[place] 1 tab PO TID PRN 01/24/19 01/24/19 10-325] Omeprazole 20 mg PO DAILY 01/24/19 01/24/19 metFORMIN HCL 1,000 mg PO BID 01/24/19 01/24/19 Previous Rx's Medication Instructions Recorded Vitamin A 8,000 unit PO DAILY #90 capsule 12/10/15 Allergies Allergy/AdvReac Type Severity Reaction Status Date / Time Penicillins Allergy Severe Unknown Verified 01/24/19 10:53 Childhood TRACE METALS Allergy itching,rachna Uncoded 01/22/19 19:22 h Review of Systems ROS Statement: Those systems with pertinent positive or pertinent negative responses have been documented in the HPI. ROS Other: All systems not noted in ROS Statement are negative. Past Medical History Past Medical History: Chest Pain / Angina, COPD, Diabetes Mellitus, GERD/Reflux, Hyperlipidemia, Hypertension, Osteoarthritis (OA), Skin Disorder, Sleep Apnea/CPAP/BIPAP Additional Past Medical History / Comment(s): 01/13/15 Pt admitted to floor s/p laparoscopic Laila En Y gastric bypass. Other HX: IDDM type II, PM>2 YRS,VARICOSE VEINS, NEUROPATHY MIR LEGS, arthritis bilateral knees. History of Any Multi-Drug Resistant Organisms: None Reported Past Surgical History: Adenoidectomy, Appendectomy, Bariatric Surgery, Cholecystectomy, Orthopedic Surgery, Tonsillectomy Additional Past Surgical History / Comment(s): 01/13/15 Lap laila en Y gastric bypass. Other SX: MIR KNEE ARTHROSCOPIES, MIR KNEE REPLACEMENTS, D&C, MIR CATARACTS Past Anesthesia/Blood Transfusion Reactions: No Reported Reaction Past Psychological History: Anxiety, Depression Smoking Status: Former smoker Past Alcohol Use History: None Reported Past Drug Use History: None Reported - Past Family History Mother Family Medical History: Cancer, Deep Vein Thrombosis (DVT) General Exam - General Exam Comments Initial Comments: 63-year-old female. Alert and oriented 3. No significant distress. Limitations: no limitations General appearance: alert, in no apparent distress Head exam: Present: atraumatic, normocephalic, normal inspection Eye exam: Present: normal appearance, PERRL, EOMI. Absent: scleral icterus, conjunctival injection, periorbital swelling ENT exam: Present: normal exam, mucous membranes moist Neck exam: Present: normal inspection. Absent: tenderness, meningismus, lymphadenopathy Respiratory exam: Present: normal lung sounds bilaterally. Absent: respiratory distress, wheezes, rales, rhonchi, stridor Cardiovascular Exam: Present: regular rate, normal rhythm, normal heart sounds. Absent: systolic murmur, diastolic murmur, rubs, gallop, clicks GI/Abdominal exam: Present: soft, normal bowel sounds. Absent: distended, tenderness, guarding, rebound, rigid Extremities exam: Present: normal inspection, full ROM, normal capillary refill. Absent: tenderness, pedal edema, joint swelling, calf tenderness Back exam: Present: normal inspection Neurological exam: Present: alert, oriented X3, CN II-XII intact Psychiatric exam: Present: normal affect, normal mood Skin exam: Present: warm, dry, intact, normal color. Absent: rash Course Vital Signs 01/24/19 01/24/19 09:26 11:29 Pulse Rate 105 H 87 Respiratory 18 18 Rate Blood Pressure 115/76 129/85 O2 Sat by Pulse 100 100 Oximetry Medical Decision Making - Medical Decision Making This patient's a 63-year-old female, history of gastric sleeve and bypass surgery. She presents today for concern for left-sided abdominal pain, chest pain on exertion that has been worsening over the past 3 days. She was seen in emergency department 3 days ago diagnosis of mild pancreatitis. At this time Patient reports she went to her primary care doctor's office and was complaining some chest pain. She was reportedly given nitro while there and did report some relief of her symptoms. Patient EKG was reviewed today, shows no acute ST changes. Patient's initial troponin is negative. Amylase and lipase are within normal limits and had went down from her visit on Tuesday. Chest x-ray is negative for any acute cardiac process. KUB shows some mild enteritis are possible ileus. She denies any vomiting and has been having stools. Patient was advised that we would like to admit for concern for exertional chest pain with relief with nitro. Patient is agreeable to this plan. - Lab Data Result diagrams: 01/24/19 09:35 01/24/19 09:35 Lab Results 01/24/19 01/24/19 01/24/19 Range/Units 09:35 09:35 09:35 WBC 9.0 (3.8-10.6) k/uL RBC 4.75 (3.80-5.40) m/uL Hgb 14.0 (11.4-16.0) gm/dL Hct 42.2 (34.0-46.0) % MCV 88.8 (80.0-100.0) fL MCH 29.4 (25.0-35.0) pg MCHC 33.1 (31.0-37.0) g/dL RDW 13.1 (11.5-15.5) % Plt Count 245 (150-450) k/uL Neutrophils % 73 % Lymphocytes % 19 % Monocytes % 5 % Eosinophils % 2 % Basophils % 1 % Neutrophils # 6.6 (1.3-7.7) k/uL Lymphocytes # 1.7 (1.0-4.8) k/uL Monocytes # 0.4 (0-1.0) k/uL Eosinophils # 0.2 (0-0.7) k/uL Basophils # 0.1 (0-0.2) k/uL PT (9.0-12.0) sec INR (<1.2) APTT (22.0-30.0) sec Sodium 142 (137-145) mmol/L Potassium 4.0 (3.5-5.1) mmol/L Chloride 108 H (98-107) mmol/L Carbon Dioxide 24 (22-30) mmol/L Anion Gap 10 mmol/L BUN 11 (7-17) mg/dL Creatinine 0.55 (0.52-1.04) mg/dL Est GFR (CKD-EPI)AfAm >90 (>60 ml/min/1.73 sqM) Est GFR (CKD-EPI)NonAf >90 (>60 ml/min/1.73 sqM) Glucose 145 H (74-99) mg/dL Plasma Lactic Acid Bradly 1.8 (0.7-2.0) mmol/L Calcium 9.6 (8.4-10.2) mg/dL Total Bilirubin 0.7 (0.2-1.3) mg/dL AST 26 (14-36) U/L ALT 24 (9-52) U/L Alkaline Phosphatase 105 (38-126) U/L Troponin I (0.000-0.034) ng/mL Total Protein 6.6 (6.3-8.2) g/dL Albumin 3.6 (3.5-5.0) g/dL Amylase 31 (30-110) U/L Lipase 164 (23-300) U/L 01/24/19 01/24/19 Range/Units 09:35 09:35 WBC (3.8-10.6) k/uL RBC (3.80-5.40) m/uL Hgb (11.4-16.0) gm/dL Hct (34.0-46.0) % MCV (80.0-100.0) fL MCH (25.0-35.0) pg MCHC (31.0-37.0) g/dL RDW (11.5-15.5) % Plt Count (150-450) k/uL Neutrophils % % Lymphocytes % % Monocytes % % Eosinophils % % Basophils % % Neutrophils # (1.3-7.7) k/uL Lymphocytes # (1.0-4.8) k/uL Monocytes # (0-1.0) k/uL Eosinophils # (0-0.7) k/uL Basophils # (0-0.2) k/uL PT 10.6 (9.0-12.0) sec INR 1.0 (<1.2) APTT 27.4 (22.0-30.0) sec Sodium (137-145) mmol/L Potassium (3.5-5.1) mmol/L Chloride (98-107) mmol/L Carbon Dioxide (22-30) mmol/L Anion Gap mmol/L BUN (7-17) mg/dL Creatinine (0.52-1.04) mg/dL Est GFR (CKD-EPI)AfAm (>60 ml/min/1.73 sqM) Est GFR (CKD-EPI)NonAf (>60 ml/min/1.73 sqM) Glucose (74-99) mg/dL Plasma Lactic Acid Bradly (0.7-2.0) mmol/L Calcium (8.4-10.2) mg/dL Total Bilirubin (0.2-1.3) mg/dL AST (14-36) U/L ALT (9-52) U/L Alkaline Phosphatase (38-126) U/L Troponin I <0.012 (0.000-0.034) ng/mL Total Protein (6.3-8.2) g/dL Albumin (3.5-5.0) g/dL Amylase (30-110) U/L Lipase (23-300) U/L 01/24/19 09:36 Patient's EKG shows sinus tachycardia, left axis deviation.. Heart age- indeterminate. Possible anterolateral infarct age-indeterminate. Abnormal EKG. Ventricular rate of 104 bpm. OK intervals 180 ms. QS duration is 86 ms. QT QTC 348/457 ms. No evidence of ST elevation. No significant change from previous EKG on 01/22/2019. - Radiology Data Radiology results: report reviewed Chest x-ray shows chronic changes without any acute process noted. Air-fluid levels noted and nondilated small bowel suggesting ileus and can be seen enteritis. computed tomography scan from the shows findings compatible for mild acute pancreatitis. Read by Dr. gris gil. Disposition Clinical Impression: Unstable angina Disposition: ADMITTED IP TO THIS HOSP Condition: Stable Is patient prescribed a controlled substance at d/c from ED?: No Referrals: Mamadou Gerard DO [Primary Care Provider] - 1-2 days Time of Disposition: 11:32
[2019-01-24 09:47] LABS: Basophils # (A) 0.1 k/uL (0-0.2); Basophils % (A) 1 %; Eosinophils # (A) 0.2 k/uL (0-0.7); Eosinophils % (A) 2 %; HCT 42.2 % (34.0-46.0); Lymphocytes # (A) 1.7 k/uL (1.0-4.8); Lymphocytes % (A) 19 %; MCH 29.4 pg (25.0-35.0); MCHC 33.1 g/dL (31.0-37.0); MCV 88.8 fL (80.0-100.0); Mean Platelet Volume 7.5; Monocytes # (A) 0.4 k/uL (0-1.0); Monocytes % (A) 5 %; Neutrophils # (A) 6.6 k/uL (1.3-7.7); Neutrophils % (A) 73 %; Platelet Count 245 k/uL (150-450); RBC 4.75 m/uL (3.80-5.40); RDW 13.1 % (11.5-15.5)
[2019-01-24 09:57] LABS: Partial Thromboplastin Time 27.4 sec (22.0-30.0); Prothrombin Time 10.6 sec (9.0-12.0)
[2019-01-24 10:13] LABS: ALT 24 U/L (9-52); AST 26 U/L (14-36); African American GFR (CKD) >90 (>60 ml/min/1.73 sqM); Albumin 3.6 g/dL (3.5-5.0); Alkaline Phosphatase 105 U/L (38-126); Amylase 31 U/L (30-110); Anion Gap 10 mmol/L; Blood Urea Nitrogen 11 mg/dL (7-17); Calcium 9.6 mg/dL (8.4-10.2); Carbon Dioxide 24 mmol/L (22-30); Chloride 108 mmol/L (98-107); Glucose 145 mg/dL (74-99); Non-African American GFR(CKD) >90 (>60 ml/min/1.73 sqM); Sodium 142 mmol/L (137-145); Total Bilirubin 0.7 mg/dL (0.2-1.3); Total Protein 6.6 g/dL (6.3-8.2)
--- NOTE | 2019-01-24 10:34 | XR ---
EXAMINATION TYPE: XR chest 2V DATE OF EXAM: 01/24/2019 COMPARISON: Chest x-ray February 20, 2018. HISTORY: Chest pain today. TECHNIQUE: Frontal and lateral views of the chest are obtained. FINDINGS: There is some chronic parenchymal change without suspicious new focal air space opacity, p leural effusion, or pneumothorax seen. The cardiac silhouette size remains within normal limits. Mul tilevel spurring in thoracic spine is redemonstrated IMPRESSION: Chronic changes without new acute pulmonary process.
--- NOTE | 2019-01-24 10:35 | XR ---
EXAMINATION TYPE: XR KUB DATE OF EXAM: 01/24/2019 10:30 AM CLINICAL HISTORY: Upper abdominal pain TECHNIQUE: Single upright image of the abdomen is obtained. COMPARISON: None. FINDINGS: No dilated large or small bowel however there are multiple small bowel air-fluid levels see n scattered throughout the abdomen. Lung bases are well aerated. There is a levoscoliosis of the lumb ar spine and moderate multilevel degenerative disc disease. No abnormal calcifications in the abdomen or pelvis. IMPRESSION: Air-fluid levels within nondilated small bowel suggest ileus and can be seen in enteritis .
[2019-01-24] MEDS ORDERED: ASPIRIN 81 MG PO STA (10:55)
[2019-01-24] MEDS ORDERED: NITROGLYCERIN SL TABS 0.4 MG TAB SUBLINGUAL PRN (11:33)
[2019-01-24 12:04] LABS: Appearance,Urine Clear (Clear); Bacteria,Urine Rare /hpf; Bilirubin,Urine 1+ (Negative); Blood,Urine Negative (Negative); Color,Urine Dark Yellow; Glucose,Urine (UA) Negative (Negative); Hyaline Casts,Urine 44 /lpf (0-2); Ketones,Urine 1+ (Negative); Leukocyte Esterase,Urine Moderate (Negative); Mucus,Urine Moderate /hpf; Nitrite,Urine Negative (Negative); PH, Urine 5.5 (5.0-8.0); Protein,Urine 1+ (Negative); RBC,Urine 2 /hpf (0-5); Specific Gravity,Urine 1.037 (1.001-1.035); Squamous Epithelial Cell,Urine 1 /hpf (0-4)
[2019-01-24 17:09] LABS: Glucose,Whole Blood 127 mg/dL (75-99)
[2019-01-24 20:45] LABS: Glucose,Whole Blood 164 mg/dL (75-99)
--- NOTE | 2019-01-24 21:14 | P.HPIM ---
History of Present Illness H&P Date: 01/24/19 Chief Complaint: Abdominal and chest pain History of present complaint: This is a pleasant 63-year-old patient of Dr. Celia Gerard. Extensive medical history. Chronic stable medical conditions include COPD, diabetes, GERD, hypertension, hyperlipidemia, osteoarthritis, peripheral neuropathy. Patient lives with her boyfriend. Does use a cane and a walker depending how far she is to walk. For about a week she's been having discomfort below both he r breast pain across. Present all the time but does wax and wane. She has some nausea no vomiting fever has not been present some chills is present.. Short of breath occasionally. The pain sometimes goes up in the chest. Feels like a little pressure. Patient has not eaten too well for the whole week. No change in bowel pattern Review of systems: GEN.: Tired EYES: None HEENT: None NECK: None RESPIRATORY: None CARDIOVASCULAR: As above GASTROINTESTINAL: As above GENITOURINARY: None MUSCULOSKELETAL: Joint pains LYMPHATICS: None HEMATOLOGICAL: None PSYCHIATRY: None NEUROLOGICAL: None Past medical history to include: COPD, diabetes, GERD, hypertension, hyperlipidemia, osteoarthritis, peripheral neuropathy, obstructive sleep apnea-does not use devices she has lost weight, arthritis in multiple joints Social history: This is a significant other. Sometimes uses a cane or a walker. Smoked for about 40 years stopped about 10 years ago. Physical examination: VITAL SIGNS: 98.6, 73, 18, 153/75, 94% room air GENERAL: BMI 31.2, laying in bed slightly anxious. EYES: Pupils equal. Conjunctiva normal. HEENT: External appearance of nose and ears normal, oral cavity grossly normal. NECK: JVD not raised; masses not palpable. HEART: First and second heart sounds are normal; no edema. LUNGS: Respiratory rate normal; clear to auscultation. ABDOMEN: Soft, minimal epigastric tenderness, no guarding or rigidity, liver spleen not palpable, no masses palpable. PSYCH: Alert and oriented x3; mood and affect normal. NEUROLOGICAL: Cranial nerves grossly intact; no facial asymmetry, power and sensation grossly intact. LYMPHATICS: No lymph nodes palpable in the axilla and neck INVESTIGATIONS, reviewed in the clinical context: White count 9 hemoglobin 14 platelets 245 progression 4 creatinine 0.55 Amylase normal lipase normal Troponin I 2 negative UA positive for leukoesterase some bacteria hyaline cast positive EKG tracing personally reviewed by me-normal sinus rhythm, Q waves in inferior leads Chest x-ray film personally reviewed by me-lung graves clear Assessment: -Patient presents 1 week off pressure below both the breast present on and off associated with nausea some chills respirations some shortness of breath going up in the chest. EKG is nonspecific. Troponins are negative. This could be report the cardiac oral gastroenterology manifestation. -COPD in an ex-smoker -Diabetes mellitus type 2 -GERD -Essential hypertension -Hyperlipidemia -Primary osteoarthritis -Diabetic peripheral neuropathy -Obesity BMI 31.2 Plan: Cardiology was consulted. Serial cardiac enzymes and place. 2-D echocardiogram has been ordered. Patient will need a stress test. Also general surgery has been consulted. Given history of Laila-en-Y gastric bypass patient will need endoscopy. Care was discussed with the patient. Questions were answered Past Medical History Past Medical History: Chest Pain / Angina, COPD, Diabetes Mellitus, GERD/Reflux, Hyperlipidemia, Hypertension, Osteoarthritis (OA), Skin Disorder, Sleep Apnea/CPAP/BIPAP Additional Past Medical History / Comment(s): Diagnosed with mild pancreatitis on 01/22/19, NIDDM type II, neuropathy bilateral hands/legs/feet, arthritis in multiple joints, bilateral carpal tunnel syndrome, gastric ulcer, ADRIANA-no longer uses device since wt loss, varicose veins, venous dermatitis. History of Any Multi-Drug Resistant Organisms: None Reported Past Surgical History: Adenoidectomy, Appendectomy, Bariatric Surgery, Cholecystectomy, Orthopedic Surgery, Tonsillectomy Additional Past Surgical History / Comment(s): 01/13/15 Lap laila en Y gastric bypass with lysis of adhesions, EGDs, colonoscopies, bilateral knee arthroscopy, bilateral knee replacements, D&C Past Anesthesia/Blood Transfusion Reactions: No Reported Reaction Additional Past Anesthesia/Blood Transfusion Reaction / Comment(s): Pt is slow to wake from anesthesia. She has received blood in past without reaction. Past Psychological History: Anxiety, Depression Additional Psychological History / Comment(s): Pt resides with her SO. She uses a cane and walker if needed. She has never had a [place] driver's license- her SO takes her to appts. Smoking Status: Former smoker Past Alcohol Use History: None Reported Additional Past Alcohol Use History / Comment(s): Pt started smoking in 1969 and quit smoking in 2009 Past Drug Use History: None Reported - Past Family History Mother Family Medical History: Cancer, Deep Vein Thrombosis (DVT) Additional Family Medical History / Comment(s): Mother had uterine cancer. Father Family Medical History: Congestive Heart Failure (CHF), Sleep Apnea/CPAP/BIPAP Additional Family Medical History / Comment(s): Father was an alcoholic. He of CHF at the age of 48yrs. Medications and Allergies Home Medications Medication Instructions Recorded Confirmed Type DULoxetine HCL [Cymbalta] 60 mg PO BID 09/10/13 01/24/19 History Multivitamins, Thera [Theragran] 3 tab PO DAILY 01/02/15 01/24/19 History Vitamin A 8,000 unit PO DAILY #90 capsule 12/10/15 01/24/19 Rx Bisacodyl [Dulcolax] 5 mg PO DAILY 01/17/19 01/24/19 History Lisinopril [Zestril] 5 mg PO DAILY 01/17/19 01/24/19 History Simvastatin [Zocor] 20 mg PO HS 01/17/19 01/24/19 History sitaGLIPtin [Januvia] 25 mg PO DAILY 01/17/19 01/24/19 History traZODone HCL [Desyrel] 100 mg PO HS 01/17/19 01/24/19 History HYDROcodone/APAP 10-325MG [[place] 1 tab PO TID PRN 01/24/19 01/24/19 History 10-325] Omeprazole 20 mg PO DAILY 01/24/19 01/24/19 History metFORMIN HCL 1,000 mg PO BID 01/24/19 01/24/19 History Allergies Allergy/AdvReac Type Severity Reaction Status Date / Time Penicillins Allergy Severe Unknown Verified 01/24/19 10:53 Childhood TRACE METALS Allergy itching,rachna Uncoded 01/22/19 19:22 h Physical Exam Vitals: Vital Signs Temp Pulse Pulse Resp BP BP Pulse Ox 01/24/19 20:00 98.6 F 73 18 153/75 94 L 01/24/19 15:57 90 16 120/66 96 01/24/19 14:23 98.0 F 97 18 123/83 96 01/24/19 13:00 98.0 F 104 H 18 135/74 98 01/24/19 11:29 87 18 129/85 100 01/24/19 09:26 105 H 18 115/76 100 Intake and Output 01/24/19 01/24/19 01/24/19 06:59 14:59 22:59 Intake Total 222 Balance 222 Intake: Oral 222 Other: Voiding Method Toilet # Voids 1 Weight 87.543 kg Results CBC & Chem 7: 01/24/19 09:35 01/24/19 09:35 Labs: Abnormal Lab Results - Last 24 Hours (Table) 01/24/19 01/24/19 01/24/19 Range/Units 09:35 11:46 17:07 Chloride 108 H (98-107) mmol/L Glucose 145 H (74-99) mg/dL POC Glucose (mg/dL) 127 H (75-99) mg/dL Ur Specific [place] 1.037 H (1.001-1.035) Urine Protein 1+ H (Negative) Urine Ketones 1+ H (Negative) Urine Bilirubin 1+ H (Negative) Ur Leukocyte Esterase Moderate H (Negative) Urine Bacteria Rare H (None) /hpf Hyaline Casts 44 H (0-2) /lpf Urine Mucus Moderate H (None) /hpf 01/24/19 Range/Units 20:44 Chloride (98-107) mmol/L Glucose (74-99) mg/dL POC Glucose (mg/dL) 164 H (75-99) mg/dL Ur Specific [place] (1.001-1.035) Urine Protein (Negative) Urine Ketones (Negative) Urine Bilirubin (Negative) Ur Leukocyte Esterase (Negative) Urine Bacteria (None) /hpf Hyaline Casts (0-2) /lpf Urine Mucus (None) /hpf Thrombosis Risk Factor Assmnt - Choose All That Apply Any of the Below Risk Factors Present?: Yes Each Factor Represents 1 point: Abnormal pulmonary function (COPD), Obesity (BMI >25) Other Risk Factors: Yes Each Risk Factor Represents 2 Points: Age 61-74 years Each Risk Factor Represents 3 Points: Family history of DVT/PE Other congenital or acquired thrombophilia - If yes, enter type in comment: No Thrombosis Risk Factor Assessment Total Risk Factor Score: 7 Thrombosis Risk Factor Assessment Level: High Risk
[2019-01-24] MEDS: traZODone HCL 100 MG TAB PO SCH (22:07)
[2019-01-24] MEDS: DULoxetine HCL 60 MG CAPSULE.DR PO SCH (22:07)
[2019-01-24] MEDS: HYDROcodone/APAP 10-325MG 1 EACH TAB PO PRN (22:07)
[2019-01-24] MEDS ORDERED: ATORVASTATIN 10 MG TAB PO SCH (22:15)
[2019-01-25 03:42] LABS: Cholesterol 114 mg/dL (<200); HDL Cholesterol 60 mg/dL (40-60); LDL Cholesterol,Calculated 38 mg/dL (0-99); Triglycerides 78 mg/dL (<150)
[2019-01-25 06:02] LABS: Glucose,Whole Blood 149 mg/dL (75-99)
[2019-01-25] MEDS: INSULIN ASPART (NovoLOG) 100 UNIT/ML VIAL SQ SCH ×4 (06:13→21:02)
[2019-01-25] MEDS: HYDROcodone/APAP 10-325MG 1 EACH TAB PO PRN ×2 (06:13→16:49)
[2019-01-25] MEDS: PANTOPRAZOLE 40 MG TABLET PO SCH (06:13)
[2019-01-25] MEDS: LISINOPRIL 5 MG TAB PO SCH (08:20)
[2019-01-25] MEDS: BISACODYL 5 MG TABLET.DR PO SCH (08:20)
[2019-01-25] MEDS: MULTIVITAMINS, THERA 1 EACH TAB PO SCH (08:20)
[2019-01-25] MEDS: DULoxetine HCL 60 MG CAPSULE.DR PO SCH ×2 (08:20→22:04)
[2019-01-25] MEDS ORDERED: ASPIRIN 325 MG TAB PO SCH (09:00)
[2019-01-25] MEDS ORDERED: metFORMIN 500 MG TAB PO SCH (09:00)
[2019-01-25] MEDS ORDERED: ALPRAZolam 0.5 MG TAB PO PRN (10:01)
[2019-01-25] MEDS ORDERED: ATORVASTATIN 80 MG TAB PO STA (10:01)
[2019-01-25] MEDS ORDERED: NITROGLYCERIN SL TABS 0.4 MG TAB SUBLINGUAL PRN (10:01)
[2019-01-25] MEDS ORDERED: SODIUM CHLORIDE 0.9% 1,000 ML in EMPTY BAG 1 BAG IV ONE (10:01)
[2019-01-25] MEDS ORDERED: ALPRAZolam 0.25 MG TAB PO PRN (10:01)
[2019-01-25] MEDS ORDERED: ASPIRIN 325 MG TAB PO STA (10:01)
--- NOTE | 2019-01-25 10:01 | P.CRDCN ---
History of Present Illness Consult date: 01/25/19 Requesting physician: Cam Hardy Consult reason: chest pain Chief complaint: Chest pain History of present illness: This is a 63-year-old female with history of diabetes, hyperlipidemia, hypertension, prior chest gastric surgery for weight loss, she apparently lost approximately 200 pounds in weight. She presents to the hospital with symptoms of chest discomfort which she describes as a tight band around her chest. She does state that she gets associated shortness of breath and diaphoresis with this. Patient also states that the symptoms have been occurring off and on for the past couple of weeks. Patient did undergo a Lexiscan stress test in March of this year which was reported to be negative for any reversible ischemia. She is also scheduled as an outpatient today to undergo an EGD for follow-up on her gastric surgery. Chest x-ray on presentation here shows chronic changes without new acute pulmonary process. KUB was performed which revealed air fluid levels within nondilated small bowel suggesting possible ileus, can also be seen and enteritis. The patient's EKG shows a sinus tachycardia with no acute changes. White blood cell count is normal, hemoglobin 14, platelet count 245. Sodium 142, potassium 4.0, BUN 11, creatinine 0.5. Troponins are negative 3. Past Medical History Past Medical History: Chest Pain / Angina, COPD, Diabetes Mellitus, GERD/Reflux, Hyperlipidemia, Hypertension, Osteoarthritis (OA), Skin Disorder, Sleep Apnea/CPAP/BIPAP Additional Past Medical History / Comment(s): Diagnosed with mild pancreatitis on 01/22/19, NIDDM type II, neuropathy bilateral hands/legs/feet, arthritis in multiple joints, bilateral carpal tunnel syndrome, gastric ulcer, ADRIANA-no longer uses device since wt loss, varicose veins, venous dermatitis. History of Any Multi-Drug Resistant Organisms: None Reported Past Surgical History: Adenoidectomy, Appendectomy, Bariatric Surgery, Cholecystectomy, Orthopedic Surgery, Tonsillectomy Additional Past Surgical History / Comment(s): 01/13/15 Lap laila en Y gastric bypass with lysis of adhesions, EGDs, colonoscopies, bilateral knee arthroscopy, bilateral knee replacements, D&C Past Anesthesia/Blood Transfusion Reactions: No Reported Reaction Additional Past Anesthesia/Blood Transfusion Reaction / Comment(s): Pt is slow to wake from anesthesia. She has received blood in past without reaction. Past Psychological History: Anxiety, Depression Additional Psychological History / Comment(s): Pt resides with her SO. She uses a cane and walker if needed. 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 Smoking Status: Former smoker Past Alcohol Use History: None Reported Additional Past Alcohol Use History / Comment(s): Pt started smoking in 1969 and quit smoking in 2009 Past Drug Use History: None Reported - Past Family History Mother Family Medical History: Cancer, Deep Vein Thrombosis (DVT) Additional Family Medical History / Comment(s): Mother had uterine cancer. Father Family Medical History: Congestive Heart Failure (CHF), Sleep Apnea/CPAP/BIPAP Additional Family Medical History / Comment(s): Father was an alcoholic. He of CHF at the age of 48yrs. Medications and Allergies Home Medications Medication Instructions Recorded Confirmed Type DULoxetine HCL [Cymbalta] 60 mg PO BID 09/10/13 01/24/19 History Multivitamins, Thera [Theragran] 3 tab PO DAILY 01/02/15 01/24/19 History Vitamin A 8,000 unit PO DAILY #90 capsule 12/10/15 01/24/19 Rx Bisacodyl [Dulcolax] 5 mg PO DAILY 01/17/19 01/24/19 History Lisinopril [Zestril] 5 mg PO DAILY 01/17/19 01/24/19 History Simvastatin [Zocor] 20 mg PO HS 01/17/19 01/24/19 History sitaGLIPtin [Januvia] 25 mg PO DAILY 01/17/19 01/24/19 History traZODone HCL [Desyrel] 100 mg PO HS 01/17/19 01/24/19 History HYDROcodone/APAP 10-325MG [[place] 1 tab PO TID PRN 01/24/19 01/24/19 History 10-325] Omeprazole 20 mg PO DAILY 01/24/19 01/24/19 History metFORMIN HCL 1,000 mg PO BID 01/24/19 01/24/19 History Allergies Allergy/AdvReac Type Severity Reaction Status Date / Time Penicillins Allergy Severe Unknown Verified 01/24/19 10:53 Childhood TRACE METALS Allergy itching,rachna Uncoded 01/22/19 19:22 h Physical Exam Vitals: Vital Signs Temp Pulse Pulse Resp BP BP Pulse Ox 01/25/19 03:51 80 18 01/25/19 03:49 98.4 F 80 18 123/59 96 01/24/19 23:21 84 16 01/24/19 23:18 98.2 F 84 16 128/64 94 L 01/24/19 20:00 98.6 F 73 18 153/75 94 L 01/24/19 15:57 90 16 120/66 96 01/24/19 14:23 98.0 F 97 18 123/83 96 01/24/19 13:00 98.0 F 104 H 18 135/74 98 01/24/19 11:29 87 18 129/85 100 Intake and Output 01/24/19 01/25/19 01/25/19 22:59 06:59 14:59 Intake Total 222 0 Balance 222 0 Intake: Oral 222 0 Other: Voiding Method Toilet Toilet # Voids 1 1 Weight 89.3 kg PHYSICAL EXAMINATION: GENERAL: 63-year-old female in no acute distress at the time of my examination HEENT: Head is atraumatic, normocephalic. Pupils equal, round. Sclera anicteric. Conjunctiva are clear. Mucous membranes of the mouth are moist. Neck is supple. There is no elevated jugular venous pressure. No carotid bruit is heard. HEART EXAMINATION: Heart S1, S2 normal. No murmur or gallop heard. CHEST EXAMINATION: Lungs are clear to auscultation and precussion. No chest wall tenderness is noted on palpation or with deep breathing. ABDOMEN: Soft, obese, nontender. Bowel sounds are heard. No organomegaly noted. EXTREMITIES: 2+ peripheral pulses with no evidence of peripheral edema and no calf tenderness noted. NEUROLOGIC patient is awake, alert and oriented 3 . . Results 01/24/19 09:35 01/24/19 09:35 Cardiac Enzymes 01/24/19 01/24/19 01/24/19 Range/Units 09:35 09:35 14:57 AST 26 (14-36) U/L Troponin I <0.012 <0.012 (0.000-0.034) ng/mL 01/24/19 Range/Units 21:51 AST (14-36) U/L Troponin I <0.012 (0.000-0.034) ng/mL Coagulation 01/24/19 Range/Units 09:35 PT 10.6 (9.0-12.0) sec APTT 27.4 (22.0-30.0) sec Lipids 01/24/19 Range/Units 09:35 Triglycerides 78 (<150) mg/dL Cholesterol 114 (<200) mg/dL HDL Cholesterol 60 (40-60) mg/dL Comprehensive Metabolic Panel 01/24/19 Range/Units 09:35 Sodium 142 (137-145) mmol/L Potassium 4.0 (3.5-5.1) mmol/L Chloride 108 H (98-107) mmol/L Carbon Dioxide 24 (22-30) mmol/L BUN 11 (7-17) mg/dL Creatinine 0.55 (0.52-1.04) mg/dL Glucose 145 H (74-99) mg/dL Calcium 9.6 (8.4-10.2) mg/dL AST 26 (14-36) U/L ALT 24 (9-52) U/L Alkaline Phosphatase 105 (38-126) U/L Total Protein 6.6 (6.3-8.2) g/dL Albumin 3.6 (3.5-5.0) g/dL Current Medications Generic Name Dose Route Start Last Admin Trade Name Freq PRN Reason Stop Dose Admin Hydrocodone Bitart/Acetaminophen 1 each 01/24/19 22:02 01/25/19 06:13 [place] 10 PO 1 each TID PRN Administration Pain Aspirin 325 mg 01/25/19 09:00 01/25/19 08:20 Aspirin PO 325 mg DAILY JAQUELINE Administration Atorvastatin Calcium 10 mg 01/24/19 22:15 01/24/19 22:09 Lipitor PO 10 mg HS JAQUELINE Administration Bisacodyl 5 mg 01/25/19 09:00 01/25/19 08:20 Dulcolax PO 5 mg DAILY JAQUELINE Administration Duloxetine HCl 60 mg 01/24/19 22:15 01/25/19 08:20 Cymbalta PO 60 mg BID JAQUELINE Administration Insulin Aspart 0 unit 01/25/19 07:30 01/25/19 06:13 Novolog SQ 1 unit ACHS JAQUELINE Administration Protocol Linagliptin 5 mg 01/25/19 09:00 Tradjenta PO DAILY JAQUELINE Lisinopril 5 mg 01/25/19 09:00 01/25/19 08:20 Zestril PO 5 mg DAILY JAQUELINE Administration Metformin HCl 1,000 mg 01/25/19 09:00 Glucophage PO BID JAQUELINE Multivitamins 1 each 01/25/19 09:00 01/25/19 08:20 Theragran PO 1 each DAILY JAQUELINE Administration Nitroglycerin 0.4 mg 01/24/19 11:33 Nitrostat SUBLINGUAL Q5M PRN Chest Pain Pantoprazole Sodium 40 mg 01/25/19 07:30 01/25/19 06:13 Protonix PO 40 mg DAILY@0730 JAQUELINE Administration Trazodone HCl 100 mg 01/24/19 22:15 01/24/19 22:07 Desyrel PO 100 mg HS JAQUELINE Administration Intake and Output 01/24/19 01/25/19 01/25/19 22:59 06:59 14:59 Intake Total 222 0 Balance 222 0 Intake: Oral 222 0 Other: Voiding Method Toilet Toilet # Voids 1 1 Weight 89.3 kg 01/24/19 09:35 01/24/19 09:35 EKG Interpretations (text) EKG on presentation here shows a sinus tachycardia with no acute changes. Assessment and Plan Plan: Assessment and plan #1 symptoms of chest tightness with associated shortness of breath and diaphoresis, suggesting possible unstable angina. Troponins are negative 3. EKG shows a sinus tachycardia with no acute changes. Lexiscan stress test was performed in March of this year and reported to not have any reversible ischemia. 2 diabetes #3 hypertension #4 hyperlipidemia #5 history of gastric surgery for weight loss, patient lost approximately 200 pounds in weight Plan We will obtain an echocardiogram with Doppler study. In view of the fact that the patient has symptoms suggestive of unstable angina and multiple risk factor she's been advised to undergo cardiac catheterization. The risks and the benefits of the procedure were explained to the patient in detail and she is willing to proceed. This will be performed today by Dr. Turner. We'll continue the patient on aspirin, increase the Lipitor to 40 mg daily, continue lisinopril, add a small dose of beta nika. Further recommendations will be b ased on these findings and the patient's clinical course. DNP note has been reviewed, I agree with a documented findings and plan of care. Patient was seen and examined.
--- NOTE | 2019-01-25 10:03 | P.GSCN ---
<Rachell De Santiago - Last Filed: 01/25/19 10:00> History of Present Illness Consult date: 01/25/19 Reason for Consult: Abdominal pain Requesting physician: Cam Hardy History of present illness: CHIEF COMPLAINT: Chest pain HISTORY OF PRESENT ILLNESS: 63-year-old female who underwent Laila-en-Y gastric bypass in [place] [address] Osborne who presents to emergency room with chest pain. Patient was recently seen in the bariatric center on 01/17/2019 with complaints of epigastric and bilateral lower abdominal pain. Dr. Osborne recommended EGD and CT abdomen and pelvis. The patient recently was evaluated in the emergency room for chest pain on 01/22/2019 and underwent computed tomography scan at that time revealing findings compatible with mild acute pancreatitis. PAST MEDICAL HISTORY: See list. PAST SURGICAL HISTORY: See list. MEDICATIONS: See list. ALLERGIES: See list. SOCIAL HISTORY: No illicit drug use. REVIEW OF SYSTEMS: CONSTITUTIONAL: Denies fever or chills. HEENT: Denies blurred vision, vision changes, or eye pain. Denies hemoptysis ENDOCRINE: Denies heat or cold intolerance. CARDIOVASCULAR: Reports chest pain prior to hospitalization RESPIRATORY: No shortness of breath. GASTROINTESTINAL: Denies diarrhea or constipation. Denies nausea or vomiting. NEURO: Denies history of seizures. PSYCH: No depression or suicidal ideation HEMATOLOGIC: Denies bleeding disorders. LYMPHATIC: The patient denies any lumps and bumps around the neck. GENITOURINARY: Denies any blood in urine or increased urinary frequency. MUSCULOSKELETAL: Denies myalgias. Denies joint swelling. Denies decreased range of motion beyond patients baseline. SKIN: Denies pruitis. Denies rash. PHYSICAL EXAM: VITAL SIGNS: Currently stable. GENERAL: Well-developed in no acute distress. HEENT: No sclera icterus. Extraocular movements grossly intact. Moist buccal mucosa. Head is atraumatic, normocephalic. Hears conversational speech. No nasal drainage. NECK: Supple without lymphadenopathy. CHEST: Non-labored respirations and equal bilateral excursions. CARDIOVASCULAR: Regular rate with regular rhythm. Palpable 2+ radial pulses. ABDOMEN: Soft. Nondistended. Tenderness with palpation to epigastric region. Positive bowel sounds. No peritoneal signs. MUSCULOSKELETAL: No clubbing or cyanosis NEUROLOGIC: No focal or lateralizing signs. Cranial nerves II through XII grossly intact. PSYCH: Appropriate affect. Alert and oriented to person, place and time. SKIN: Well perfused. Good skin turgor. LABORATORY DATA: W BC 9.0. Hemoglobin 14.0. Platelet count 245. Sodium 142. Potassium 4.0. BUN 11. Creatinine 0.55. Lactic acid 1.8. Bilirubin 0.7. AST 26. ALT 24. Alkaline phosphatase 105. Amylase 31. Lipase 164. Troponin negative x 3 IMAGIN. Chest x-ray: Chronic changes without new acute pulmonary process 2. KUB x-ray: Air-fluid levels within nondilated small bowel suggesting ileus. Can also be seen in enteritis. ASSESSMENT: 1. Epigastric pain 2. History of Laila-en-Y gastric bypass, 2014 3. Recent diagnosis of mild pancreatitis 4. History of cholecystectomy PLAN: NPO. Continue IV fluids Cardiology on consult. Await recommendations Patient scheduled for EGD today with Dr. Osborne Nurse practitioner note has been reviewed by physician. Signing provider agrees with the documented findings, assessment, and plan of care. Past Medical History Past Medical History: Chest Pain / Angina, COPD, Diabetes Mellitus, GERD/Reflux, Hyperlipidemia, Hypertension, Osteoarthritis (OA), Skin Disorder, Sleep Apnea/CPAP/BIPAP Additional Past Medical History / Comment(s): Diagnosed with mild pancreatitis on 01/22/19, NIDDM type II, neuropathy bilateral hands/legs/feet, arthritis in multiple joints, bilateral carpal tunnel syndrome, gastric ulcer, ADRIANA-no longer uses device since wt loss, varicose veins, venous dermatitis. History of Any Multi-Drug Resistant Organisms: None Reported Past Surgical History: Adenoidectomy, Appendectomy, Bariatric Surgery, Cholecystectomy, Orthopedic Surgery, Tonsillectomy Additional Past Surgical History / Comment(s): 01/13/15 Lap laila en Y gastric bypass with lysis of adhesions, EGDs, colonoscopies, bilateral knee arthroscopy, bilateral knee replacements, D&C Past Anesthesia/Blood Transfusion Reactions: No Reported Reaction Additional Past Anesthesia/Blood Transfusion Reaction / Comm: Pt is slow to wake from anesthesia. She has received blood in past without reaction. Past Psychological History: Anxiety, Depression Additional Psychological History / Comment(s): Pt resides with her SO. She uses a cane and walker if needed. She has never had a otr flatbed driver's license- her SO takes her to app. Smoking Status: Former smoker Past Alcohol Use History: None Reported Additional Past Alcohol Use History / Comment(s): Pt started smoking in 1969 and quit smoking in 2009 Past Drug Use History: None Reported - Past Family History Mother Family Medical History: Cancer, Deep Vein Thrombosis (DVT) Additional Family Medical History / Comment(s): Mother had uterine cancer. Father Family Medical History: Congestive Heart Failure (CHF), Sleep Apnea/CPAP/BIPAP Additional Family Medical History / Comment(s): Father was an alcoholic. He of CHF at the age of 48yrs. Medications and Allergies Home Medications Medication Instructions Recorded Confirmed Type DULoxetine HCL [Cymbalta] 60 mg PO BID 09/10/13 01/24/19 History Multivitamins, Thera [Multivitamin 3 tab PO DAILY 01/02/15 01/24/19 History (formulary)] Vitamin A 8,000 unit PO DAILY #90 capsule 12/10/15 01/24/19 Rx Bisacodyl [Dulcolax] 5 mg PO DAILY 01/17/19 01/24/19 History Lisinopril [Zestril] 5 mg PO DAILY 01/17/19 01/24/19 History Simvastatin [Zocor] 20 mg PO HS 01/17/19 01/24/19 History sitaGLIPtin [Januvia] 25 mg PO DAILY 01/17/19 01/24/19 History traZODone HCL [Desyrel] 100 mg PO HS 01/17/19 01/24/19 History HYDROcodone/APAP 10-325MG [Naselle 1 tab PO TID PRN 01/24/19 01/24/19 History 10-325] Omeprazole 20 mg PO DAILY 01/24/19 01/24/19 History metFORMIN HCL 1,000 mg PO BID 01/24/19 01/24/19 History Aspirin 81 mg PO DAILY chew 01/26/19 Rx Allergies Allergy/AdvReac Type Severity Reaction Status Date / Time Penicillins Allergy Severe Unknown Verified 01/24/19 10:53 Childhood TRACE METALS Allergy itching,rachna Uncoded 01/22/19 19:22 h Surgical - Exam Vital Signs Pulse Resp BP Pulse Ox 105 H 18 115/76 100 01/24/19 09:26 01/24/19 09:26 01/24/19 09:26 01/24/19 09:26 Results - Labs 01/24/19 09:35 01/24/19 09:35 Abnormal Lab Results - Last 24 Hours (Table) 01/24/19 01/24/19 01/24/19 Range/Units 09:35 11:46 17:07 Chloride 108 H (98-107) mmol/L Glucose 145 H (74-99) mg/dL POC Glucose (mg/dL) 127 H (75-99) mg/dL Ur Specific Hibbs 1.037 H (1.001-1.035) Urine Protein 1+ H (Negative) Urine Ketones 1+ H (Negative) Urine Bilirubin 1+ H (Negative) Ur Leukocyte Esterase Moderate H (Negative) Urine Bacteria Rare H (None) /hpf Hyaline Casts 44 H (0-2) /lpf Urine Mucus Moderate H (None) /hpf 01/24/19 01/25/19 Range/Units 20:44 05:57 Chloride (98-107) mmol/L Glucose (74-99) mg/dL POC Glucose (mg/dL) 164 H 149 H (75-99) mg/dL Ur Specific Hibbs (1.001-1.035) Urine Protein (Negative) Urine Ketones (Negative) Urine Bilirubin (Negative) Ur Leukocyte Esterase (Negative) Urine Bacteria (None) /hpf Hyaline Casts (0-2) /lpf Urine Mucus (None) /hpf Diabetes panel 01/24/19 01/24/19 Range/Units 09:35 09:35 Sodium 142 (137-145) mmol/L Potassium 4.0 (3.5-5.1) mmol/L Chloride 108 H (98-107) mmol/L Carbon Dioxide 24 (22-30) mmol/L BUN 11 (7-17) mg/dL Creatinine 0.55 (0.52-1.04) mg/dL Glucose 145 H (74-99) mg/dL Calcium 9.6 (8.4-10.2) mg/dL AST 26 (14-36) U/L ALT 24 (9-52) U/L Alkaline Phosphatase 105 (38-126) U/L Total Protein 6.6 (6.3-8.2) g/dL Albumin 3.6 (3.5-5.0) g/dL Triglycerides 78 (<150) mg/dL HDL Cholesterol 60 (40-60) mg/dL Calcium panel 01/24/19 Range/Units 09:35 Calcium 9.6 (8.4-10.2) mg/dL Albumin 3.6 (3.5-5.0) g/dL Pituitary panel 01/24/19 Range/Units 09:35 Sodium 142 (137-145) mmol/L Potassium 4.0 (3.5-5.1) mmol/L Chloride 108 H (98-107) mmol/L Carbon Dioxide 24 (22-30) mmol/L BUN 11 (7-17) mg/dL Creatinine 0.55 (0.52-1.04) mg/dL Glucose 145 H (74-99) mg/dL Calcium 9.6 (8.4-10.2) mg/dL Adrenal panel 01/24/19 Range/Units 09:35 Sodium 142 (137-145) mmol/L Potassium 4.0 (3.5-5.1) mmol/L Chloride 108 H (98-107) mmol/L Carbon Dioxide 24 (22-30) mmol/L BUN 11 (7-17) mg/dL Creatinine 0.55 (0.52-1.04) mg/dL Glucose 145 H (74-99) mg/dL Calcium 9.6 (8.4-10.2) mg/dL Total Bilirubin 0.7 (0.2-1.3) mg/dL AST 26 (14-36) U/L ALT 24 (9-52) U/L Alkaline Phosphatase 105 (38-126) U/L Total Protein 6.6 (6.3-8.2) g/dL Albumin 3.6 (3.5-5.0) g/dL <Nereida Osborne N - Last Filed: 01/27/19 13:51> History of Present Illness History of present illness: Later duing the day, patient was taken for cardiac catheterization. EGD deferred pending cardiac evaluation. Surgical - Exam Vital Signs Pulse Resp BP Pulse Ox 105 H 18 115/76 100 01/24/19 09:26 01/24/19 09:26 01/24/19 09:26 01/24/19 09:26 Results - Labs 01/24/19 09:35 01/24/19 09:35
[2019-01-25 11:27] VITALS: BMI 31.7
--- NOTE | 2019-01-25 11:50 | ECHOF ---
Referral Reason:Chest pain MEASUREMENTS -------- HEIGHT: 167.6 cm WEIGHT: 88.9 kg BP: 123/59 RVIDd: 3.0 cm (< 3.3) IVSd: 1.4 cm (0.6 - 1.1) LVIDd: 4.1 cm (3.9 - 5.3) LVPWd: 1.5 cm (0.6 - 1.1) IVSs: 2.1 cm LVIDs: 2.8 cm LVPWs: 1.8 cm LA Diam: 3.2 cm (2.7 - 3.8) LAESV Index (A-L): 23.24 ml/m Ao Diam: 3.2 cm (2.0 - 3.7) AV Cusp: 2.2 cm (1.5 - 2.6) MV EXCURSION: 17.701 mm (> 18.000) MV EF SLOPE: 64 mm/s (70 - 150) EPSS: 0.4 cm MV E Brandan: 0.82 m/s MV DecT: 153 ms MV A Brandan: 0.92 m/s MV E/A Ratio: 0.89 AR PHT: 546 ms RAP: 5.00 mmHg RVSP: 28.71 mmHg FINDINGS -------- Sinus rhythm. This was a technically adequate study. The left ventricular size is normal. There is moderate concentric left ventricular hypertrophy. O verall left ventricular systolic function is normal with, an EF between 60 - 65 %. The diastolic fi lling pattern is normal for the age of the patient 10.22. The right ventricle is normal in size. Normal LA size by volume 22+/-6 ml/m2. The right atrium is normal in size. Interatrial and interventricular septum intact. The aortic valve is trileaflet and appears structurally normal. There is mild aortic regurgitation. The mitral valve is normal. Mild tricuspid regurgitation present. Right ventricular systolic pressure is normal at < 35 mmHg. The pulmonic valve was not well visualized. The aortic root size is normal. Normal inferior vena cava with normal inspiratory collapse consistent with estimated right atrial pre ssure of 5 mmHg. There is no pericardial effusion. CONCLUSIONS -------- 1. Sinus rhythm. 2. This was a technically adequate study. 3. The left ventricular size is normal. 4. There is moderate concentric left ventricular hypertrophy. 5. Overall left ventricular systolic function is normal with, an EF between 60 - 65 %. 6. The diastolic filling pattern is normal for the age of the patient 10.22 7. The right ventricle is normal in size. 8. Normal LA size by volume 22+/-6 ml/m2. 9. The right atrium is normal in size. 10. Interatrial and interventricular septum intact. 11. The aortic valve is trileaflet and appears structurally normal. 12. There is mild aortic regurgitation. 13. The mitral valve is normal. 14. Mild tricuspid regurgitation present. 15. Right ventricular systolic pressure is normal at < 35 mmHg. 16. The pulmonic valve was not well visualized. 17. The aortic root size is normal. 18. Normal inferior vena cava with normal inspiratory collapse consistent with estimated right atrial pressure of 5 mmHg. 19. There is no pericardial effusion. WELLNESS PROGRAM MANAGER: Chanel Hodgson RDCS
[2019-01-25 11:57] LABS: Glucose,Whole Blood 124 mg/dL (75-99)
[2019-01-25 14:28] LABS: Hemoglobin A1C 6.4 % (4.0-6.0)
[2019-01-25 17:01] LABS: Glucose,Whole Blood 104 mg/dL (75-99)
[2019-01-25] MEDS ORDERED: IV FLUID CONTINUATION 600 ML IV ONE (18:40)
[2019-01-25] MEDS ORDERED: LIDOCAINE 1% INJ 10MG/ML (20 ML MDV) ONE (18:54)
[2019-01-25] MEDS ORDERED: HEPARIN SODIUM 1,000 UN/ML (10ML VL) ONE (18:54)
[2019-01-25] MEDS ORDERED: VERAPAMIL 2.5 MG/ML 2 ML AMP ONE (18:54)
[2019-01-25] MEDS ORDERED: LIDOCAINE 1% INJ 10MG/ML (20 ML MDV) SQ ONE (18:58)
[2019-01-25] MEDS ORDERED: MIDAZOLAM 2 MG/2 ML VIAL IV ONE (18:58)
[2019-01-25] MEDS ORDERED: VERAPAMIL SYRINGE (5 MG/10 ML) INTRAARTER ONE (18:59)
[2019-01-25] MEDS ORDERED: HEPARIN SODIUM 1,000 UN/ML (10ML VL) IV ONE (19:02)
[2019-01-25] MEDS ORDERED: IOPAMIDOL-370 125ML BTL INJ ONE (19:10)
[2019-01-25] MEDS ORDERED: RX INFO: IV CONTRAST WAS GIVEN 1 EACH MISC MISCELLANE PRN (19:11)
[2019-01-25] MEDS ORDERED: SODIUM CHLORIDE 0.9% 1,000 ML IV SCH (19:15)
[2019-01-25] MEDS: LINAGLIPTIN 5 MG TABLET PO SCH (20:11)
[2019-01-25 20:55] LABS: Glucose,Whole Blood 186 mg/dL (75-99)
[2019-01-25] MEDS ORDERED: ATORVASTATIN 40 MG TAB PO SCH (21:00)
[2019-01-25] MEDS: traZODone HCL 100 MG TAB PO SCH (22:04)
--- NOTE | 2019-01-25 22:24 | P.PN ---
Progress Note - Text Progress Note Date: 01/25/19 Chief Complaint: Abdominal and chest pain History of present complaint: This is a pleasant 63-year-old patient of Dr. Celia Gerard. Extensive medical history. Chronic stable medical conditions include COPD, diabetes, GERD, hypertension, hyperlipidemia, osteoarthritis, peripheral neuropathy. Patient lives with her boyfriend. Does use a cane and a walker depending how far she is to walk. For about a week she's been having discomfort below both her breast pain across. Present all the time but does wax and wane. She has some nausea no vomiting fever has not been present some chills is present.. Short of breath occasionally. The pain sometimes goes up in the chest. Feels like a little pressure. Patient has not eaten too well for the whole week. No change in bowel pattern admitted with unstable angina Today-sitting on bed. No new symptoms. Seen by cardiology. Pending cardiac catheterization. Review of systems: Was done for constitutional, cardiovascular, GI, pulmonary. relevant finding as above Current medications are reviewed from today's electronic records Physical examination: VITAL SIGNS: medicines 0.2, 82, 16, 11 , 94% room air GENERAL: BMI 31.2, laying in bed slightly anxious. EYES: Pupils equal. Conjunctiva normal. HEENT: External appearance of nose and ears normal, oral cavity grossly normal. NECK: JVD not raised; masses not palpable. HEART: First and second heart sounds are normal; no edema. LUNGS: Respiratory rate normal; clear to auscultation. ABDOMEN: Soft, minimal epigastric tenderness, no guarding or rigidity, liver spleen not palpable, no masses palpable. PSYCH: Alert and oriented x3; mood and affect normal. NEUROLOGICAL: Cranial nerves grossly intact; no facial asymmetry, power and sensation grossly intact. LYMPHATICS: No lymph nodes palpable in the axilla and neck INVESTIGATIONS, reviewed in the clinical context: White count 9 hemoglobin 14 platelets 245 progression 4 creatinine 0.55 Amylase normal lipase normal Troponin I 2 negative UA positive for leukoesterase some bacteria hyaline cast positive EKG tracing personally reviewed by me-normal sinus rhythm, Q waves in inferior leads Chest x-ray film personally reviewed by me-lung graves clear Assessment: -possible unstable angina. Awaiting cardiac catheterization -Possible gastric dyspepsia and/or peptic ulcer disease. Will need EGD. -COPD in an ex-smoker -Diabetes mellitus type 2 -GERD -Essential hypertension -Hyperlipidemia -Primary osteoarthritis -Diabetic peripheral neuropathy -Obesity BMI 31.2 Plan: patient is awaiting a cardiac catheterization this afternoon. We'll also need to EGD. Patient's rather upset and is sore the patient daughter today about not blowing Ottavio for cardiac catheterization. Did try to reassure the patient and her .
--- NOTE | 2019-01-25 22:31 | CC ---
CARDIAC CATHETERIZATION REPORT DATE OF SERVICE: 01/25/2019 PERFORMING PHYSICIAN: Axel Aguilar MD. PROCEDURES PERFORMED: 1. Selective right and left coronary angiogram. 2. Left heart catheterization. INDICATION: This is a 63-year-old female patient with diabetes, hypertension and dyslipidemia who presented to the hospital with classical anginal symptoms of chest discomfort. Because of that, a heart catheterization was advised. APPROACH: Right radial artery. COMPLICATIONS: None. LEVEL OF SEDATION: Moderate, with sedation length of 16 minutes. PROCEDURE DESCRIPTION: After obtaining informed consent, the patient was brought to the cardiac ammunition assembly laborer. The right radial artery was cannulated using micropuncture technique. The micropuncture wire passed easily. Then I placed a 6-Burkinan sheath. I gave the patient 2 mg of verapamil IA and 10,000 units of heparin IV. Selective right and left coronary angiogram was performed using JR4 and JL3.5 catheters. Left heart catheterization was performed using a 6-Burkinan pigtail catheter. The procedure was completed without any complication. SELECTIVE CORONARY ANGIOGRAM: 1. The RCA is a moderate-caliber vessel. It is a nondominant vessel. It appeared to be angiographically normal. 2. The left main is angiographically normal. It bifurcates into LCX and LAD. 3. The LCX is a large-caliber vessel and is a dominant vessel. The LCX has mild disease in the mid portion. It gives rise to 3 OM branches. The OM1 has mild disease in the ostium, but OM2 and OM3 are normal. The left circumflex distally bifurcates into PDA and PLV branches; both appeared to be angiographically normal. 4. The LAD. The proximal LAD has mild disease only. The mid and distal LAD appeared to be angiographically normal. The LAD gives rise to a diagonal branch which appeared to be normal. HEMODYNAMICS: The LVEDP was 10 mmHg without significant gradient across the aortic valve. CONCLUSION: 1. Mild nonobstructive coronary artery disease. 2. Normal left ventricular end-diastolic pressure. POST-PROCEDURE MANAGEMENT: 1. Medical treatment. 2. Follow up with the patient. MMODL / IJN: [id number] /
[2019-01-25 22:54] VITALS: RESP 16
[2019-01-26 06:12] LABS: Glucose,Whole Blood 121 mg/dL (75-99)
[2019-01-26] MEDS: INSULIN ASPART (NovoLOG) 100 UNIT/ML VIAL SQ SCH ×2 (06:25→12:56)
[2019-01-26] MEDS: PANTOPRAZOLE 40 MG TABLET PO SCH (06:39)
[2019-01-26] MEDS: LISINOPRIL 5 MG TAB PO SCH (08:11)
[2019-01-26] MEDS: HYDROcodone/APAP 10-325MG 1 EACH TAB PO PRN (08:11)
[2019-01-26] MEDS: BISACODYL 5 MG TABLET.DR PO SCH (08:11)
[2019-01-26] MEDS: MULTIVITAMINS, THERA 1 EACH TAB PO SCH (08:12)
[2019-01-26] MEDS: DULoxetine HCL 60 MG CAPSULE.DR PO SCH (08:12)
[2019-01-26 08:36] VITALS: TEMP 97.1
[2019-01-26] MEDS ORDERED: ASPIRIN 81 MG PO SCH (09:00)
--- NOTE | 2019-01-26 10:03 | P.PN ---
Subjective Progress Note Date: 01/26/19 Principal diagnosis: Chest discomfort This is a pleasant 63-year-old female patient was diabetes, hypertension, and dyslipidemia who presented to the hospital with a chest discomfort concerning for angina and severe CAD. She underwent heart catheterization and that revealed mild nonobstructive coronary artery disease. She was seen this morning. She is asymptomatic at this point. From the cardiac standpoint she can be discharged home Objective - Vital Signs Vital signs: Vital Signs Temp 97.1 F L 01/26/19 08:00 Pulse 90 01/26/19 08:00 Resp 16 01/26/19 08:00 BP 130/76 01/26/19 08:00 Pulse Ox 95 01/26/19 08:00 Intake & Output 01/25/19 01/26/19 01/26/19 18:59 06:59 18:59 Intake Total 460 Balance 460 Weight 89.3 kg 89.9 kg Intake: IV 100 Intake, IV Titration 360 Amount Sodium Chloride 0.9% 1, 360 000 ml In Empty Bag 1 bag @ 1 ML/KG/HR 89.3 mls/hr IV .[id number] ONE Rx#: [id number] Oral 0 Other: Voiding Method Toilet Toilet # Voids 3 2 - Constitutional General appearance: Present: no acute distress - Respiratory Respiratory: bilateral: CTA - Cardiovascular Rhythm: regular Heart sounds: normal: S1, S2 - Labs CBC & Chem 7: 01/24/19 09:35 01/24/19 09:35 Labs: Abnormal Lab Results - Last 24 Hours (Table) 01/24/19 01/25/19 01/25/19 Range/Units 09:35 11:41 16:41 POC Glucose (mg/dL) 124 H 104 H (75-99) mg/dL Hemoglobin A1c 6.4 H (4.0-6.0) % 01/25/19 01/26/19 Range/Units 20:53 06:10 POC Glucose (mg/dL) 186 H 121 H (75-99) mg/dL Hemoglobin A1c (4.0-6.0) % Assessment and Plan Assessment: Assessment #1 chest discomfort #2 mild CAD #3 hypertension #4 dyslipidemia Plan #1 continue the current medical regimen #2 the patient can be discharged home
[2019-01-26] MEDS ORDERED: PROPOFOL 10 MG/ML 20 ML VIAL IV ONE (11:36)
[2019-01-26] MEDS ORDERED: LIDOCAINE 1% INJ 10MG/ML (20 ML MDV) ONE (11:36)
--- NOTE | 2019-01-26 11:38 | P.PN ---
<Rachell De Santiago A - Last Filed: 01/26/19 11:37> Subjective Progress Note Date: 01/26/19 CHIEF COMPLAINT: Chest pain HISTORY OF PRESENT ILLNESS: Patient examined this morning at bedside with Dr. Osborne. She underwent cardiac catheterization yesterday that revealed mild nonobstructive coronary artery disease. PHYSICAL EXAM: VITAL SIGNS: Currently stable. GENERAL: Well-developed in no acute distress. HEENT: No sclera icterus. Extraocular movements grossly intact. Moist buccal mucosa. Head is atraumatic, normocephalic. Hears conversational speech. No nasal drainage. NECK: Supple without lymphadenopathy. CHEST: Non-labored respirations and equal bilateral excursions. CARDIOVASCULAR: Regular rate with regular rhythm. Palpable 2+ radial pulses. ABDOMEN: Soft. Nondistended. Tenderness with palpation to epigastric region. Positive bowel sounds. No peritoneal signs. MUSCULOSKELETAL: No clubbing or cyanosis NEUROLOGIC: No focal or lateralizing signs. Cranial nerves II through XII grossly intact. PSYCH: Appropriate affect. Alert and oriented to person, place and time. SKIN: Well perfused. Good skin turgor. ASSESSMENT: 1. Epigastric pain 2. History of Chinedu-en-Y gastric bypass, 2014 3. Recent diagnosis of mild pancreatitis 4. History of cholecystectomy PLAN: Patient has been cleared from a cardiology perspective We will perform EGD today with Dr. Osborne Likely home this afternoon after EGD Nurse practitioner note has been reviewed by physician. Signing provider agrees with the documented findings, assessment, and plan of care. Objective - Vital Signs Vital signs: Vital Signs Temp 97.1 F L 01/26/19 08:00 Pulse 90 01/26/19 08:00 Resp 16 01/26/19 08:00 BP 130/76 01/26/19 08:00 Pulse Ox 95 01/26/19 08:00 Intake & Output 01/25/19 01/26/19 01/26/19 18:59 06:59 18:59 Intake Total 460 0 Balance 460 0 Weight 89.3 kg 89.9 kg Intake: IV 100 Intake, IV Titration 360 Amount Sodium Chloride 0.9% 1, 360 000 ml In Empty Bag 1 bag @ 1 ML/KG/HR 89.3 mls/hr IV .[id number] ONE Rx#: [id number] Oral 0 0 Other: Voiding Method Toilet Toilet Toilet # Voids 3 2 - Labs CBC & Chem 7: 01/24/19 09:35 01/24/19 09:35 Labs: Abnormal Lab Results - Last 24 Hours (Table) 01/24/19 01/25/19 01/25/19 Range/Units 09:35 11:41 16:41 POC Glucose (mg/dL) 124 H 104 H (75-99) mg/dL Hemoglobin A1c 6.4 H (4.0-6.0) % 01/25/19 01/26/19 Range/Units 20:53 06:10 POC Glucose (mg/dL) 186 H 121 H (75-99) mg/dL Hemoglobin A1c (4.0-6.0) % <Nereida Osborne N - Last Filed: 01/27/19 13:52> Subjective Will proceed with EGD for epigastric pain and atypical chest pain with history of gastroesophageal reflux disease. Objective - Vital Signs Vital signs: Vital Signs Temp 97.1 F L 01/26/19 08:00 Pulse 75 01/26/19 12:00 Resp 16 01/26/19 12:00 BP 113/66 01/26/19 12:00 Pulse Ox 97 01/26/19 12:00 Intake & Output 01/26/19 01/27/19 01/27/19 18:59 06:59 18:59 Intake Total 800 Balance 800 Intake: IV 200 Oral 600 Other: Voiding Method Toilet # Voids 3 - Labs CBC & Chem 7: 01/24/19 09:35 01/24/19 09:35
[2019-01-26] MEDS ORDERED: SODIUM CHLORIDE 0.9% 1,000 ML IV ONE (11:46)
--- NOTE | 2019-01-26 11:58 | P.PCN ---
Date of Procedure: 01/26/19 Description of Procedure: PREOPERATIVE DIAGNOSIS: Dysphagia. Gastroesophageal reflux disease s/p Chinedu-en-y gastric bypass. Atypical chest pain POSTOPERATIVE DIAGNOSIS: Dysphagia. Gastroesophageal reflux disease s/p Chinedu-en-y gastric bypass. 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 INDICATIONS: The patient is a 63-year-old female who presents with a history of dysphagia, gastric bypass including atypical chest pain. Benefits and risks of the procedure were described. Informed consent was obtained. DESCRIPTION: The patient was brought into the endoscopy suite and laid in the left lateral decubitus position. After a timeout was confirmed, the procedure was initiated. An Olympus gastroscope was passed along the posterior oropharynx down to the distal esophagus where the squamocolumnar junction was unremarkable. Moderate tertiary contractions consistent with presbyesophagus and esophageal dysmotility was identified. The gastric pouch was entered. A gastrojejunal stricture of 15 mm was found as the adult gastroscope was 9.5 mm in size. A [employer] balloon dilator was placed through the scope. Final insufflation up to 20 mm was performed with a total of 2 minutes. Additional balloon dilation was performed of the mid to distal esophagus. The scope was advanced up to 60 cm from the incisors into the Chinedu limb. The mucosa of the gastrojejunal anastomosis was intact. No chronic gastrojejunal marginal ulcer was encountered. No full-thickness injury was encountered. Cold forceps biopsies were obtained along the gastric pouch for gastritis. The GI tract was desuff lated. The patient tolerated the procedure well. FINDINGS: Stricture of approximately 15 mm encountered. No chronic gastrojejunal ulceration encountered. Successful balloon dilatation to 20 mm. Presbyesophagus esophageal dysmotility, esophageal dilation performed Gastritis along gastric pouch with biopsies obtained RECOMMENDATIONS: Recommend manometry for esophageal dysmotility Dysphagia diet recommended May need formal rigid esophageal dilation in the future
[2019-01-26 12:41] VITALS: BP 113/66; PULSE 75
[2019-01-26] MEDS: LINAGLIPTIN 5 MG TABLET PO SCH (12:56)
[2019-01-26 12:57] LABS: Glucose,Whole Blood 117 mg/dL (75-99)
--- NOTE | 2019-01-26 15:26 | P.PN ---
Progress Note - Text Progress Note Date: 01/26/19 Upper endoscopy results reviewed the patient. She was able to tolerate grounded diet. Features consistent with esophageal dysmotility, presbyesophagus which may mimic also atypical chest pain. Patient reviewed of diet as well as drinking warm beverages and pureed or grounded. Will need outpatient manometry. Patient cleared for discharge from a surgical standpoint.
[2019-01-27] MEDS ORDERED: metFORMIN 500 MG TAB PO SCH (21:00)
--- NOTE | 2019-01-29 15:45 | P.DS ---
Providers Date of admission: 01/24/19 11:42 Expected date of discharge: 01/26/19 Attending physician: Cam Hardy Consults: 01/24/19 11:33 Consult Physician Urgent Consulting Provider: Mariano Celestin Consult Reason/Comments: Chest pain, unstable angina Do you want consulting provider notified?: Yes 01/24/19 21:04 Consult Physician Routine Consulting Provider: Nereida Osborne Consult Reason/Comments: Abdominal pain Do you want consulting provider notified?: Yes Primary care physician: Mamadou Gerard [place] [facility] Course: Chief Complaint: Abdominal and chest pain History of present complaint: This is a pleasant 63-year-old patient of Dr. Celia Gerard. Extensive medical history. Chronic stable medical conditions include COPD, diabetes, GERD, hypertension, hyperlipidemia, osteoarthritis, peripheral neuropathy. Patient lives with her boyfriend. Does use a cane and a walker depending how far she is to walk. For about a week she's been having discomfort below both her breast pain across. Present all the time but does wax and wane. She has some nausea no vomiting fever has not been present some chills is present.. Short of breath occasionally. The pain sometimes goes up in the chest. Feels like a little pressure. Patient has not eaten too well for the whole week. No change in bowel pattern admitted with unstable angina. Patient did undergo cardiac catheterization. Minimal disease was found. Underwent EGD. Esophageal stricture at 15 mm was encountered. The patient was carried out. Presbyesophagus esophageal dysmotility was encountered and esophageal dilatation was performed. Patient will need more rigid the patient down the road. Patient feeling better. Consultation: Dr. Aguilar from cardiology Dr. Marina from general surgery Physical examination: VITAL SIGNS: 97.1, 75, 16, 103/66, 97% room air GENERAL: Sitting up, comfortable. EYES: Pupils equal. Conjunctiva normal. HEENT: External appearance of nose and ears normal, oral cavity grossly normal. NECK: JVD not raised; masses not palpable. HEART: First and second heart sounds are normal; no edema. LUNGS: Respiratory rate normal; clear to auscultation. ABDOMEN: Soft, minimal epigastric tenderness, no guarding or rigidity, liver spleen not palpable, no masses palpable. PSYCH: Alert and oriented x3; mood and affect normal. INVESTIGATIONS, reviewed in the clinical context: White count 9 hemoglobin 14 platelets 245 progression 4 creatinine 0.55 Amylase normal lipase normal Troponin I 2 negative UA positive for leukoesterase some bacteria hyaline cast positive EKG tracing personally reviewed by me-normal sinus rhythm, Q waves in inferior leads Chest x-ray film personally reviewed by me-lung graves clear EGD-esophageal stricture with dilatation, esophageal dysmotility Cardiac catheterization-minimal disease Assessment: -Esophageal stricture at 15 mm, leading to esophageal dilatation -Esophageal dysmotility with presbyesophagus, esophageal dilatation carried out -COPD in an ex-smoker -Diabetes mellitus type 2 -GERD -Essential hypertension -Hyperlipidemia -Primary osteoarthritis -Diabetic peripheral neuropathy -Obesity BMI 31.2 Disposition: Home Patient Condition at Discharge: Stable Plan - Discharge Summary Discharge Rx Participant: No New Discharge Prescriptions: New Aspirin 81 mg PO DAILY chew Continue DULoxetine HCL [Cymbalta] 60 mg PO BID Multivitamins, Thera [Multivitamin (formulary)] 3 tab PO DAILY Vitamin A 8,000 unit PO DAILY #90 capsule traZODone HCL [Desyrel] 100 mg PO HS sitaGLIPtin [Januvia] 25 mg PO DAILY Simvastatin [Zocor] 20 mg PO HS Lisinopril [Zestril] 5 mg PO DAILY Bisacodyl [Dulcolax] 5 mg PO DAILY metFORMIN HCL 1,000 mg PO BID HYDROcodone/APAP 10-325MG [[place] 10-325] 1 tab PO TID PRN PRN Reason: Pain Omeprazole 20 mg PO DAILY Discharge Medication List DULoxetine HCL [Cymbalta] 60 mg PO BID 09/10/13 [History] Multivitamins, Thera [Multivitamin (formulary)] 3 tab PO DAILY 01/02/15 [History] Vitamin A 8,000 unit PO DAILY #90 capsule 12/10/15 [Rx] Bisacodyl [Dulcolax] 5 mg PO DAILY 01/17/19 [History] Lisinopril [Zestril] 5 mg PO DAILY 01/17/19 [History] Simvastatin [Zocor] 20 mg PO HS 01/17/19 [History] sitaGLIPtin [Januvia] 25 mg PO DAILY 01/17/19 [History] traZODone HCL [Desyrel] 100 mg PO HS 01/17/19 [History] HYDROcodone/APAP 10-325MG [[place] 10-325] 1 tab PO TID PRN 01/24/19 [History] Omeprazole 20 mg PO DAILY 01/24/19 [History] metFORMIN HCL 1,000 mg PO BID 01/24/19 [History] Aspirin 81 mg PO DAILY chew 01/26/19 [Rx] Follow up Appointment(s)/Referral(s): Axel Aguilar MD [STAFF PHYSICIAN] - 02/06/19 4:30 pm Nereida Osborne MD [Family Provider] - 01/30/19 1:20 pm (Follow up after EGD.) Mamadou Gerard DO [Primary Care Provider] - 02/07/19 11:15 am Patient Instructions/Handouts: *Surgery [facility] - (Anesthesia) Endoscopy Discharge Instructions, Diet for Stomach Ulcers and Gastritis (ED), Esophageal Stricture (DC), After Radial Heart Catheterization (GEN) Discharge Disposition: HOME SELF-CARE
== END 2019-01-26 15:41 | disposition home or self-care (01) | DRG 392 ==
LOC: EC 09:19 → 3SCARD 11:42
PROVIDERS: ADMIT Hospitalist; ATTEND Hospitalist
PROC: 4A023N7 Measurement of Cardiac Sampling and Pressure, Left Heart, Percutaneous Approach (ICD-10-PCS; 2019-01-25)
PROC: B2111ZZ Fluoroscopy of Multiple Coronary Arteries using Low Osmolar Contrast (ICD-10-PCS; 2019-01-25)
PROC: 0DJ08ZZ Inspection of Upper Intestinal Tract, Via Natural or Artificial Opening Endoscopic (ICD-10-PCS; 2019-01-26)
PROC: 0D768ZZ Dilation of Stomach, Via Natural or Artificial Opening Endoscopic (ICD-10-PCS; principal; 2019-01-26 08:15)
PROC: 0D7A8ZZ Dilation of Jejunum, Via Natural or Artificial Opening Endoscopic (ICD-10-PCS; 2019-01-26 08:15)
PROC: 0DB68ZX Excision of Stomach, Via Natural or Artificial Opening Endoscopic, Diagnostic (ICD-10-PCS; 2019-01-26 08:15)
DX: K22.8 Other specified diseases of esophagus (principal); K56.699 Other intestinal obstruction unspecified as to partial versus complete obstruction; I25.110 Atherosclerotic heart disease of native coronary artery with unstable angina pectoris; E11.42 Type 2 diabetes mellitus with diabetic polyneuropathy; K31.89 Other diseases of stomach and duodenum; M15.9 Polyosteoarthritis, unspecified; R07.89 Other chest pain; E66.9 Obesity, unspecified; I83.90 Asymptomatic varicose veins of unspecified lower extremity; I87.2 Venous insufficiency (chronic) (peripheral); E78.5 Hyperlipidemia, unspecified; F32.9 Major depressive disorder, single episode, unspecified; F41.9 Anxiety disorder, unspecified; I10 Essential (primary) hypertension; J44.9 Chronic obstructive pulmonary disease, unspecified; K21.0 Gastro-esophageal reflux disease with esophagitis; K29.70 Gastritis, unspecified, without bleeding; G47.33 Obstructive sleep apnea (adult) (pediatric); Z68.31 Body mass index [BMI] 31.0-31.9, adult; Z79.82 Long term (current) use of aspirin; Z79.899 Other long term (current) drug therapy; Z79.84 Long term (current) use of oral hypoglycemic drugs; Z88.0 Allergy status to penicillin; Z91.048 Other nonmedicinal substance allergy status; Z90.49 Acquired absence of other specified parts of digestive tract; Z98.84 Bariatric surgery status; Z96.653 Presence of artificial knee joint, bilateral; Z87.891 Personal history of nicotine dependence; Z87.11 Personal history of peptic ulcer disease; Z98.42 Cataract extraction status, left eye; Z98.41 Cataract extraction status, right eye; Z96.1 Presence of intraocular lens; Z82.49 Family history of ischemic heart disease and other diseases of the circulatory system; Z81.1 Family history of alcohol abuse and dependence; Z80.49 Family history of malignant neoplasm of other genital organs
CPT/HCPCS: 36415; 43239; 43245; 43249; 71046; 74018; 80053; 80061; 81001; 82150; 83036; 83605; 83690; 84484; 85025; 85610; 85730; 88305; 93005; 93306; 93458; 96361; 96374; 96375; 99285

== ENCOUNTER 2019-02-19 08:00 | Day surgery (SDC) | payer MEDICARE ==
[2019-02-15 13:31] VITALS: BMI 30.8
--- NOTE | 2019-02-19 07:24 | P.GSHP ---
History of Present Illness H&P Date: 02/19/19 CHIEF COMPLAINT: GERD and colon screen HISTORY OF PRESENT ILLNESS: The patient is a 63-year-old female who presents with esophageal dysmotility, dysphagia and need for colon screen. Upper and lower endoscopy were offered for further evaluation and management. PAST MEDICAL HISTORY: Please see list. PAST SURGICAL HISTORY: Please see list. MEDICATIONS: Please see list. ALLERGIES: Please see list. SOCIAL HISTORY: No illicit drug use FAMILY HISTORY: No reports of Crohn disease or ulcerative colitis. REVIEW OF ORGAN SYSTEMS: CONSTITUTIONAL: No reports of fevers or chills. PHYSICAL EXAM: VITAL SIGNS: Stable GENERAL: Well-developed pleasant in no acute distress. HEENT: No scleral icterus. Extraocular movements grossly intact. Moist buccal mucosa. NECK: Supple without lymphadenopathy. CHEST: Unlabored respirations. Equal bilateral excursions. CARDIOVASCULAR: Regular rate and rhythm. Distal 2+ pulses. ABDOMEN: Soft, nondistended. MUSCULOSKELETAL: No clubbing, cyanosis, or edema. ASSESSMENT: 1. Gastroesophageal reflux disease, esophageal dysmotility and dysphagia 2. Colon screen. PLAN: 1. Recommend proceeding with an upper scope with rigid dilation and lower endoscopy Past Medical History Past Medical History: Chest Pain / Angina, COPD, Diabetes Mellitus, GERD/Reflux, Hyperlipidemia, Hypertension, Osteoarthritis (OA), Skin Disorder, Sleep Apnea/CPAP/BIPAP Additional Past Medical History / Comment(s): Diagnosed with mild pancreatitis on 01/22/19, neuropathy bilateral hands/legs/feet, bilateral carpal tunnel syndrome, gastric ulcer, ADRIANA-no longer uses device since wt loss, varicose ve ins, venous dermatitis. History of Any Multi-Drug Resistant Organisms: None Reported Past Surgical History: Adenoidectomy, Appendectomy, Bariatric Surgery, Cholecystectomy, Heart Catheterization, Joint Replacement, Orthopedic Surgery, Tonsillectomy Additional Past Surgical History / Comment(s): EGD with dilation, 01/13/15 Lap laila en Y gastric bypass with lysis of adhesions, EGDs, colonoscopies, bilateral knee arthroscopy, bilateral knee replacements, D&C Past Anesthesia/Blood Transfusion Reactions: Previous Problems w/ Anesthesia Additional Past Anesthesia/Blood Transfusion Reaction / Comment(s): Pt is slow to wake from anesthesia. She has received blood in past without reaction. Smoking Status: Former smoker - Past Family History Mother Family Medical History: Cancer, Deep Vein Thrombosis (DVT) Additional Family Medical History / Comment(s): Mother had uterine cancer. Father Family Medical History: Congestive Heart Failure (CHF), Sleep Apnea/CPAP/BIPAP Additional Family Medical History / Comment(s): Father was an alcoholic. He of CHF at the age of 48yrs. Medications and Allergies Home Medications Medication Instructions Recorded Confirmed Type DULoxetine HCL [Cymbalta] 60 mg PO BID 09/10/13 02/15/19 History Multivitamins, Thera [Multivitamin 3 tab PO DAILY 01/02/15 02/15/19 History (formulary)] Vitamin A 8,000 unit PO DAILY #90 capsule 12/10/15 02/15/19 Rx Bisacodyl [Dulcolax] 5 mg PO DAILY 01/17/19 02/15/19 History Lisinopril [Zestril] 5 mg PO DAILY 01/17/19 02/15/19 History sitaGLIPtin [Januvia] 25 mg PO DAILY 01/17/19 02/15/19 History traZODone HCL [Desyrel] 100 mg PO HS 01/17/19 02/15/19 History HYDROcodone/APAP 10-325MG [[place] 1 tab PO TID PRN 01/24/19 02/15/19 History 10-325] Omeprazole 20 mg PO DAILY 01/24/19 02/15/19 History metFORMIN HCL 1,000 mg PO BID 01/24/19 02/15/19 History Aspirin 81 mg PO DAILY chew 01/26/19 02/15/19 Rx Lipitor 1 tab PO DAILY 02/15/19 History Allergies Allergy/AdvReac Type Severity Reaction Status Date / Time Penicillins Allergy Severe Unknown Verified 02/15/19 13:25 Childhood TRACE METALS Allergy itching,rachna Uncoded 02/15/19 13:25 h
[~2019-02-19 08:00] MED LIST changes: +LACTATED RINGERS 1,000 ML IV SCH; +LIDOCAINE 1% 20 ML VIAL (10MG/ML) FOR IV START INTRADERMA PRN; -REGADENOSON 0.4 MG/5 ML SYRINGE IV ONE
[2019-02-19 08:46] VITALS: RESP 16; TEMP 97.8
[2019-02-19 08:53] LABS: Glucose,Whole Blood 117 mg/dL (75-99)
[2019-02-19] MEDS ORDERED: LIDOCAINE 1% INJ 10MG/ML (20 ML MDV) ONE (09:11)
[2019-02-19] MEDS ORDERED: PROPOFOL 10 MG/ML 20 ML VIAL IV ONE (09:11)
--- NOTE | 2019-02-19 09:26 | P.PCN ---
Date of Procedure: 02/19/19 Description of Procedure: PREOPERATIVE DIAGNOSIS: Dysphagia. Gastroesophageal reflux disease Esophageal dysmotility Presbyesophagus POSTOPERATIVE DIAGNOSIS: Dysphagia. Gastroesophageal reflux disease Esophageal dysmotility Presbyesophagus OPERATION: Esophagogastroduodenoscopy with rigid dilator over the guidewire 57 Fr. SURGEON: Nereida Osborne MD ANESTHESIA: MAC. INDICATIONS: The patient is a 63-year-old female who presents with a history of dysphagia. Benefits and risks of the procedure were described. Informed consent was obtained. DESCRIPTION: The patient was brought into the endoscopy suite and laid in the left lateral decubitus position. After a timeout was confirmed, the procedure was initiated. An Olympus gastroscope was passed and the gastric pouch was entered. Next using an Algerian rigid dilator, a guidewire was placed through the pediatric gastroscope. Next the scope was withdrawn. A 57-Croatian rigid Algerian dilator was passed carefully along the posterior oropharynx to 50 cm and left in place for 2-3 minutes stretch. The dilator was withdrawn including the guidewire. The scope was reentered along the posterior oropharynx with no findings of full-thickness tear of the upper esophageal sphincter. No full-thickness injury was encountered. The GI tract was desufflated. The patient tolerated the procedure well. FINDINGS: Squamocolumnar junction unremarkable Algerian rigid dilator 57-Croatian completed. No hiatus hernia Diffuse gastritis. RECOMMENDATIONS: Upper endoscopy as needed
--- NOTE | 2019-02-19 09:42 | P.PCN ---
Date of Procedure: 02/19/19 Description of Procedure: PREOPERATIVE DIAGNOSIS: Personal history of colon polyps Colonoscopy screening. POSTOPERATIVE DIAGNOSIS: Personal history of colon polyps Colonoscopy screening. Diverticulosis, scattered. External hemorrhoids, grade 2 OPERATION: Colonoscopy to the ileocecal valve and appendiceal orifice. SURGEON: Nereida Osborne MD. ANESTHESIA: MAC. INDICATIONS: The patient is a 63-year-old female who presents for colonoscopy screening. Last colonoscopy over 5 years ago. Benefits and risks were described and informed consent was obtained. DESCRIPTION OF PROCEDURE: The patient had undergone Gatorade, MiraLAX and Dulcolax prep. She had been brought into the operating room and laid in the left lateral decubitus position. After adequate intravenous sedation, the rectum was examined with 2% lidocaine jelly. External hemorrhoids were encountered. The rectal tone was within normal limits. No lesions were palpated in the rectal vault. An Olympus colonoscope was advanced until the ileocecal valve and appendiceal orifice were clearly viewed. The prep was excellent with clear visualization of the mucosal folds. The scope was removed with visualization of each mucosal fold. Scattered diverticulosis was encountered. No colonic polyps were found. No evidence of focal colitis was found. Retroflexion of the scope demonstrated grade 1 internal hemorrhoids without active bleeding or inflammation. The colon was desufflated. The patient had tolerated the procedure well. Withdrawal time was over 6 minutes. FINDINGS: Aronchick preparation quality scale 1 (1-5) Internal hemorrhoids, grade 1 External prolapsed hemorrhoids, grade 2 No arteriovenous malformations. No adenomatous polyps. No focal colitis. RECOMMENDATIONS: Lower endoscopy in 5 years2023 Plan - Discharge Summary Discharge Rx Participant: No New Discharge Prescriptions: No Action DULoxetine HCL [Cymbalta] 60 mg PO BID Multivitamins, Thera [Multivitamin (formulary)] 3 tab PO DAILY Vitamin A 8,000 unit PO DAILY #90 capsule traZODone HCL [Desyrel] 100 mg PO HS sitaGLIPtin [Januvia] 25 mg PO DAILY Lisinopril [Zestril] 5 mg PO DAILY Bisacodyl [Dulcolax] 5 mg PO DAILY metFORMIN HCL 1,000 mg PO BID HYDROcodone/APAP 10-325MG [[place] 10-325] 1 tab PO TID PRN PRN Reason: Pain Omeprazole 20 mg PO DAILY Aspirin 81 mg PO DAILY chew Lipitor 1 tab PO DAILY Discharge Medication List DULoxetine HCL [Cymbalta] 60 mg PO BID 09/10/13 [History] Multivitamins, Thera [Multivitamin (formulary)] 3 tab PO DAILY 01/02/15 [History] Vitamin A 8,000 unit PO DAILY #90 capsule 12/10/15 [Rx] Bisacodyl [Dulcolax] 5 mg PO DAILY 01/17/19 [History] Lisinopril [Zestril] 5 mg PO DAILY 01/17/19 [History] sitaGLIPtin [Januvia] 25 mg PO DAILY 01/17/19 [History] traZODone HCL [Desyrel] 100 mg PO HS 01/17/19 [History] HYDROcodone/APAP 10-325MG [[place] 10-325] 1 tab PO TID PRN 01/24/19 [History] Omeprazole 20 mg PO DAILY 01/24/19 [History] metFORMIN HCL 1,000 mg PO BID 01/24/19 [History] Aspirin 81 mg PO DAILY chew 01/26/19 [Rx] Lipitor 1 tab PO DAILY 02/15/19 [History] Follow up [facility]ment(s[facility] [facility] [place] [place] Patient Instructions/Handouts: Esophageal Dilation (DC), *Sur[facility] - (Anesthesia) Endoscopy Discharge Instructions, Diverticulosis Diet (GEN), Diverticulosis (DC) Activity/Diet/Wound Care/Special Instructions: Repeat colonoscopy in 5 years, 2023 Discharge Disposition: HOME SELF-CARE
[2019-02-19 10:07] VITALS: BP 103/65; PULSE 87
== END 2019-02-19 10:37 | disposition home or self-care (01) ==
LOC: ORWHC2ENDO 08:00
PROVIDERS: ATTEND Surgery Plastic and Reconstructive Surgery
DX: Z12.11 Encounter for screening for malignant neoplasm of colon (principal); K57.30 Diverticulosis of large intestine without perforation or abscess without bleeding; K64.0 First degree hemorrhoids; K64.4 Residual hemorrhoidal skin tags; K22.4 Dyskinesia of esophagus; K29.70 Gastritis, unspecified, without bleeding; K21.9 Gastro-esophageal reflux disease without esophagitis; K22.8 Other specified diseases of esophagus; I10 Essential (primary) hypertension; J44.9 Chronic obstructive pulmonary disease, unspecified; M19.90 Unspecified osteoarthritis, unspecified site; G47.33 Obstructive sleep apnea (adult) (pediatric); E11.9 Type 2 diabetes mellitus without complications; E78.5 Hyperlipidemia, unspecified; Z86.010 Personal history of colon polyps; Z79.84 Long term (current) use of oral hypoglycemic drugs; Z79.82 Long term (current) use of aspirin; Z79.899 Other long term (current) drug therapy; Z88.0 Allergy status to penicillin; Z87.19 Personal history of other diseases of the digestive system; Z98.84 Bariatric surgery status; Z90.49 Acquired absence of other specified parts of digestive tract; Z90.89 Acquired absence of other organs; Z96.653 Presence of artificial knee joint, bilateral; Z87.891 Personal history of nicotine dependence; Z91.048 Other nonmedicinal substance allergy status; Z82.49 Family history of ischemic heart disease and other diseases of the circulatory system; Z80.49 Family history of malignant neoplasm of other genital organs; Z81.1 Family history of alcohol abuse and dependence
CPT/HCPCS: 43248; G0105; J2001; J2704; 43249

== ENCOUNTER → 2019-02-23 | Outpatient (CLI) | payer MEDICARE ==
[2019-02-23 15:15] LABS: African American GFR (CKD) >90 (>60 ml/min/1.73 sqM); Blood Urea Nitrogen 12 mg/dL (7-17); Non-African American GFR(CKD) >90 (>60 ml/min/1.73 sqM)
--- NOTE | 2019-02-23 16:06 | CT ---
EXAMINATION TYPE: CT abdomen pelvis w con DATE OF EXAM: 02/23/2019 COMPARISON: 01/22/2019 HISTORY: Diverticulitis of large intestine. CT DLP: 1284.9 mGycm CONTRAST: CT scan of the abdomen and pelvis is performed with Oral Contrast and with IV Contrast, patient injec matthias with 100ml mL of Isovue 300. FINDINGS: LUNG BASES-: No visible nodule. No infiltrate. LIVER/GB: The gallbladder surgically absent. Mild hepatic steatosis again seen. No space occupying hepatic lesion. Biliary tree is of normal caliber. PANCREAS: No inflammation. No distinct mass. SPLEEN: No splenic enlargement. No lesion seen. ADRENALS: No nodule. No thickening. KIDNEYS/BLADDER: No hydronephrosis. No nephrolithiasis. No distinct renal mass. Urinary bladder g rossly unremarkable. BOWEL: Normal appendix. Normal bowel caliber. No inflammation. Gastric bypass surgical procedure re demonstrated. Sigmoid diverticulosis without diverticulitis. GENITAL ORGANS: No gross abnormality. LYMPH NODES: No greater than 1cm abdominal or pelvic lymph nodes are appreciated. AORTA: No significant abnormality. OSSEOUS STRUCTURES: No significant abnormality is seen. OTHER: No significant additional abnormality is seen. IMPRESSION: 1. No evidence for diverticulitis at this time. 2. Resolution of previously noted mild acute pancreatitis.
== END ==
LOC: RADCTMAIN 13:28
PROVIDERS: ATTEND Surgery Plastic and Reconstructive Surgery
DX: K57.32 Diverticulitis of large intestine without perforation or abscess without bleeding (principal)
CPT/HCPCS: 82565; 84520; 74177; 36415; Q9967

== ENCOUNTER → 2019-03-21 | Outpatient (CLI) | payer MEDICARE ==
--- NOTE | 2019-03-23 09:35 | MM ---
Reason for exam: screening (asymptomatic). Last mammogram was performed 1 year and 2 months ago. History: Patient is postmenopausal and is nulliparous. Physical Findings: A clinical breast exam by your physician is recommended on an annual basis and results should be correlated with mammographic findings. MG 3D Screening Mammo W/Cad Bilateral CC and MLO view(s) were taken. Prior study comparison: January 17, 2018, bilateral MG 3d screening mammo w/cad. November 02, 2016, bilateral MG 3d screening mammo w/cad. There are scattered fibroglandular densities. Benign oil cyst calcifications. No significant changes when compared with prior studies. ASSESSMENT: Negative, BI-RAD 1 RECOMMENDATION: Routine screening mammogram of both breasts in 1 year.
== END | disposition home or self-care (01) ==
LOC: RADMAMWWP 13:15
PROVIDERS: ATTEND Family Medicine
DX: Z12.31 Encounter for screening mammogram for malignant neoplasm of breast (principal)
CPT/HCPCS: 77063; 77067

== ENCOUNTER → 2019-11-22 | Outpatient (CLI) | payer MEDICARE, OTHER ==
--- NOTE | 2019-11-22 09:57 | MR ---
EXAMINATION TYPE: MR brain wo/w con DATE OF EXAM: 11/22/2019 COMPARISON: None HISTORY: Headaches, dizziness, memory loss TECHNIQUE: Multiplanar, multisequence images of the brain and brainstem is performed without and with IV contras t, utilizing 8.5 mL intravenous Gadavist . FINDINGS: Diffusion weighted images demonstrate no evidence of a recent infarct or other diffusion ab normality. Moderate generalized degenerative change. Diffuse bilateral areas of abnormal signal in th e white matter is nonspecific. Abnormal signal about the juliana appears chronic and most likely in the basis of remote ischemic change. Midline structures demonstrate normal morphology. The craniocervical junction appears within normal limits. Post contrast images demonstrate no abnormal enhancement. The dural venous sinuses appear pa tent. Changes of chronic sinusitis and right mastoiditis. IMPRESSION: 1. Moderate degenerative and extensive remote ischemic white matter and pontine change with no eviden ce of acute ischemia. 2. No enhancing mass.
== END | disposition home or self-care (01) ==
LOC: RADMRIMAIN 08:55
PROVIDERS: ATTEND Family Medicine
DX: I67.82 Cerebral ischemia (principal); R41.82 Altered mental status, unspecified
CPT/HCPCS: 70553; A9585

== ENCOUNTER → 2019-11-22 | Outpatient (CLI) | payer MEDICARE, OTHER ==
[2019-11-22 11:21] LABS: Basophils # (A) 0.1 k/uL (0-0.2); Basophils % (A) 1 %; Eosinophils # (A) 0.2 k/uL (0-0.7); Eosinophils % (A) 3 %; HGB 12.2 gm/dL (11.4-16.0); Lymphocytes # (A) 1.4 k/uL (1.0-4.8); Lymphocytes % (A) 20 %; MCH 29.7 pg (25.0-35.0); MCV 92.9 fL (80.0-100.0); Mean Platelet Volume 8.3; Monocytes # (A) 0.3 k/uL (0-1.0); Monocytes % (A) 5 %; Neutrophils # (A) 4.7 k/uL (1.3-7.7); Neutrophils % (A) 69 %; Platelet Count 185 k/uL (150-450); RBC 4.09 m/uL (3.80-5.40); WBC 6.7 k/uL (3.8-10.6)
[2019-11-22 16:46] LABS: African American GFR (CKD) 110.9 (60.0-200.0); Albumin 3.5 g/dL (3.80-4.90); Albumin/Globulin Ratio 1.84 (1.60-3.17); Anion Gap 6.8 mmol/L (4.00-12.00); BUN/Creat Ratio 23.33 Ratio (12.00-20.00); Calcium 8.9 mg/dL (8.7-10.3); Carbon Dioxide 30.2 mmol/L (21.6-31.8); Globulin 1.9 g/dL (1.6-3.3); Non-African American GFR(CKD) 95.7 (60.0-200.0); Potassium 4.5 mmol/L (3.5-5.5); Total Bilirubin 0.6 mg/dL (0.2-1.2); Total Protein 5.4 g/dL (6.2-8.2)
== END | disposition home or self-care (01) ==
LOC: LABWHC1 10:15
PROVIDERS: ATTEND Family Medicine
DX: R41.82 Altered mental status, unspecified (principal)
CPT/HCPCS: 36415; 80053; 85025

== ENCOUNTER → 2020-03-24 | Outpatient (CLI) | payer MEDICARE, OTHER ==
[2020-03-24 12:23] LABS: African American GFR (CKD) >90 (>60 ml/min/1.73 sqM); Blood Urea Nitrogen 10 mg/dL (7-17); Non-African American GFR(CKD) >90 (>60 ml/min/1.73 sqM)
--- NOTE | 2020-03-24 13:06 | CT ---
EXAMINATION TYPE: CT chest w con DATE OF EXAM: 03/24/2020 COMPARISON: NONE HISTORY: Enlarged lymph nodes CT DLP: 665 mGycm. Automated Exposure Control for Dose Reduction was Utilized. TECHNIQUE: CT scan of the thorax is performed following with IV Contrast, patient injected with 100 mL of Isovue 300. FINDINGS: LUNGS: Mild underlying emphysematous change. No suspicious greater than 5 mm nodules or masses. Mild linear scarring in the right middle lobe and left lung base just above the diaphragm. No suspicious f ocal consolidation or groundglass opacity. No pleural effusion or pneumothorax seen bilaterally. MEDIASTINUM: There are no greater than 1 cm hilar or mediastinal lymph nodes. Tiny pericardial effusi on is seen. No cardiomegaly. OTHER: Surgical changes from gastric bypass epigastric region noted. Additional sutures in the upper to mid abdomen small bowel loops are partially imaged anteriorly. Mild calcified plaque in the aorta. [id number] multilevel spurring in the spine. Posterior spur disc complexes efface the anteri or thecal sac throughout the lower thoracic and upper lumbar spine. IMPRESSION: No enlarged thoracic lymph nodes including bilateral axilla. Chronic changes without acut e pulmonary process.
== END | disposition home or self-care (01) ==
LOC: RADCTMAIN 11:52
PROVIDERS: ATTEND Family Medicine
DX: R91.8 Other nonspecific abnormal finding of lung field (principal); Z13.9 Encounter for screening, unspecified
CPT/HCPCS: 82565; 84520; 71260; 36415; Q9967

== ENCOUNTER → 2020-03-31 | Outpatient (CLI) | payer MEDICARE | END | disposition home or self-care (01) | LOC: LABWHC1 09:45 | PROVIDERS: ATTEND Family Medicine | DX: J44.9 Chronic obstructive pulmonary disease, unspecified (principal); R05 Cough; R09.81 Nasal congestion; R53.83 Other fatigue; R06.00 Dyspnea, unspecified | CPT/HCPCS: U0003; C9803; U0005 ==

== ENCOUNTER → 2020-05-06 | Outpatient (CLI) | payer MEDICARE ==
--- NOTE | 2020-05-06 16:46 | US ---
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 Left neck area of pain Left neck supraclavicular at area of concern: no abnormalities seen Right neck supraclavicular for comparison: no abnormalities seen IMPRESSION: 1. Ultrasound neck negative. 2. No suspicious lymph nodes or masses evident supraclavicular region
== END | disposition home or self-care (01) ==
LOC: RADUSWWP 13:58
PROVIDERS: ATTEND Family Medicine
DX: D49.89 Neoplasm of unspecified behavior of other specified sites (principal)
CPT/HCPCS: 76536

== ENCOUNTER → 2020-06-03 | Outpatient (CLI) | payer MEDICARE, OTHER ==
--- NOTE | 2020-06-05 11:44 | MM ---
Reason for exam: screening (asymptomatic). Last mammogram was performed 1 year and 2 months ago. History: Patient is postmenopausal and is nulliparous. Physical Findings: A clinical breast exam by your physician is recommended on an annual basis and results should be correlated with mammographic findings. MG 3D Screening Mammo W/Cad Bilateral CC and MLO view(s) were taken. Prior study comparison: March 21, 2019, bilateral MG 3d screening mammo w/cad. January 17, 2018, bilateral MG 3d screening mammo w/cad. There are scattered fibroglandular densities. No significant changes when compared with prior studies. ASSESSMENT: Benign, BI-RAD 2 RECOMMENDATION: Routine screening mammogram of both breasts in 1 year.
== END | disposition home or self-care (01) ==
LOC: RADMAMWWP 11:18
PROVIDERS: ATTEND Family Medicine
DX: Z12.31 Encounter for screening mammogram for malignant neoplasm of breast (principal)
CPT/HCPCS: 77063; 77067

== ENCOUNTER 2020-07-30 19:23 | Emergency (ER) | payer MEDICARE, OTHER ==
[2020-07-30 19:39] VITALS: BP 133/72; PULSE 80; RESP 16; TEMP 98.6
--- NOTE | 2020-07-30 19:59 | ED ---
General Adult HPI - General Chief complaint: Animal Bite Stated complaint: animal bite Time Seen by Provider: 07/30/20 19:49 Source: patient, family, RN notes reviewed, old records reviewed Mode of arrival: ambulatory Limitations: no limitations - History of Present Illness Initial comments: 64-year-old female bite by her parrot. There was bleeding and superficial laceration. This occurred just prior to arrival. No other injuries - Related Data Home Medications Medication Instructions Recorded Confirmed DULoxetine HCL [Cymbalta] 60 mg PO BID 09/10/13 02/15/19 Multivitamins, Thera [Multivitamin 3 tab PO DAILY 01/02/15 02/15/19 (formulary)] bisacodyL [Dulcolax] 5 mg PO DAILY 01/17/19 02/15/19 lisinopriL [Zestril] 5 mg PO DAILY 01/17/19 02/19/19 sitaGLIPtin [Januvia] 25 mg PO DAILY 01/17/19 02/15/19 traZODone HCL [Desyrel] 100 mg PO HS 01/17/19 02/15/19 HYDROcodone/APAP 10-325MG [[place] 1 tab PO TID PRN 01/24/19 02/15/19 10-325] Omeprazole 20 mg PO DAILY 01/24/19 02/15/19 metFORMIN HCL 1,000 mg PO BID 01/24/19 02/15/19 Lipitor 1 tab PO DAILY 02/15/19 Previous Rx's Medication Instructions Recorded Vitamin A 8,000 unit PO DAILY #90 capsule 12/10/15 Aspirin 81 mg PO DAILY chew 01/26/19 Doxycycline [Vibramycin] 100 mg PO BID 1 Days #10 capsule 07/30/20 Allergies Allergy/AdvReac Type Severity Reaction Status Date / Time Penicillins Allergy Severe Unknown Verified 07/30/20 19:38 Childhood TRACE METALS Allergy itching,rachna Uncoded 07/30/20 19:38 h Review of Systems ROS Statement: Those systems with pertinent positive or pertinent negative responses have been documented in the HPI. ROS Other: All systems not noted in ROS Statement are negative. Past Medical History Past Medical History: Chest Pain / Angina, COPD, Diabetes Mellitus, GERD/Reflux, Hyperlipidemia, Hypertension, Osteoarthritis (OA), Skin Disorder, Sleep Apnea/CPAP/BIPAP Additional Past Medical History / Comment(s): Diagnosed with mild pancreatitis on 01/22/19, NIDDM type II, neuropathy bilateral hands/legs/feet, arthritis in multiple joints, bilateral carpal tunnel syndrome, gastric ulcer, ADRIANA-no longer uses device since wt loss, varicose veins, venous dermatitis. History of Any Multi-Drug Resistant Organisms: None Reported Past Surgical History: Adenoidectomy, Appendectomy, Bariatric Surgery, Cholecystectomy, Orthopedic Surgery, Tonsillectomy Additional Past Surgical History / Comment(s): 01/13/15 Lap laila en Y gastric bypass with lysis of adhesions, EGDs, colonoscopies, bilateral knee arthroscopy, bilateral knee replacements, D&C Past Anesthesia/Blood Transfusion Reactions: No Reported Reaction Additional Past Anesthesia/Blood Transfusion Reaction / Comment(s): Pt is slow to wake from anesthesia. She has received blood in past without reaction. Past Psychological History: Anxiety, Depression Smoking Status: Former smoker Past Alcohol Use History: None Reported Past Drug Use History: None Reported - Past Family History Mother Family Medical History: Cancer, Deep Vein Thrombosis (DVT) Additional Family Medical History / Comment(s): Mother had uterine cancer. Father Family Medical History: Congestive Heart Failure (CHF), Sleep Apnea/CPAP/BIPAP Additional Family Medical History / Comment(s): Father was an alcoholic. He of CHF at the age of 48yrs. General Exam Limitations: no limitations General appearance: alert, in no apparent distress Head exam: Present: atraumatic, normocephalic Eye exam: Present: normal appearance, PERRL ENT exam: Present: normal exam Neck exam: Present: normal inspection. Absent: tenderness, meningismus Respiratory exam: Absent: respiratory distress Cardiovascular Exam: Present: regular rate, normal rhythm GI/Abdominal exam: Absent: distended Extremities exam: Present: other (Right mid dorsal forearm, 2 superficial puncture wounds minimal bleeding.) Course Vital Signs 07/30/20 19:34 Temperature 98.6 F Pulse Rate 80 Respiratory 16 Rate Blood Pressure 133/72 O2 Sat by Pulse 96 Oximetry Medical Decision Making - Medical Decision Making 64-year-old who was bit by her parrot. Wound is irrigated and cleansed with chlorhexidine soap. Patient started on prophylactic antibiotics. Tetanus is up-to-date within the last 2 years. There is no repairable Laceration. Disposition Clinical Impression: Bite by animal Disposition: HOME SELF-CARE Instructions (If sedation given, give patient instructions): Animal Bite (ED) Prescriptions: Doxycycline [Vibramycin] 100 mg PO BID 1 Days #10 capsule Is patient prescribed a controlled substance at d/c from ED?: No Referrals: Mamadou Gerard DO [Primary Care Provider] - 1-2 days Time of Disposition: 19:59
== END 2020-07-30 20:27 | disposition home or self-care (01) ==
LOC: EC 19:23
DX: S51.851A Open bite of right forearm, initial encounter (principal); E11.9 Type 2 diabetes mellitus without complications; I10 Essential (primary) hypertension; J44.9 Chronic obstructive pulmonary disease, unspecified; K21.9 Gastro-esophageal reflux disease without esophagitis; Z87.891 Personal history of nicotine dependence; Z79.84 Long term (current) use of oral hypoglycemic drugs; Z79.899 Other long term (current) drug therapy; Z88.0 Allergy status to penicillin; Z91.048 Other nonmedicinal substance allergy status; W61.01XA Bitten by parrot, initial encounter
CPT/HCPCS: 99282

== ENCOUNTER → 2020-10-24 | Outpatient (CLI) | payer MEDICARE, OTHER ==
[2020-10-24 16:41] LABS: African American GFR (CKD) 110.1 (60.0-200.0); Albumin 3.3 g/dL (3.80-4.90); Albumin/Globulin Ratio 1.5 (1.60-3.17); Anion Gap 6.9 mmol/L (4.00-12.00); BUN/Creat Ratio 18.33 Ratio (12.00-20.00); Calcium 8.3 mg/dL (8.7-10.3); Carbon Dioxide 33.1 mmol/L (21.6-31.8); Chol/HDL Ratio 1.6; Globulin 2.2 g/dL (1.6-3.3); LDL Cholesterol,Calculated 40.4 mg/dL (0.0-131.0); Magnesium 1.2 mg/dL (1.5-2.4); Potassium 3.1 mmol/L (3.5-5.5); Total Bilirubin 0.6 mg/dL (0.2-1.2); Total Protein 5.5 g/dL (6.2-8.2); VLDL Calculation 12.6 mg/dL (5.00-40.00)
== END | disposition home or self-care (01) ==
LOC: LABWHC1 08:38
PROVIDERS: ATTEND Nurse Practitioner Adult Health
DX: I10 Essential (primary) hypertension (principal); E78.5 Hyperlipidemia, unspecified
CPT/HCPCS: 36415; 80053; 80061; 83735; 84443; 84481

== ENCOUNTER → 2021-02-26 | Outpatient (CLI) | payer MEDICARE, OTHER ==
--- NOTE | 2021-02-26 19:24 | BD ---
EXAMINATION TYPE: Axial Bone Density DATE OF EXAM: 02/26/2021 COMPARISON: NONE CLINICAL HISTORY: Postmenopausal screening Height: Weight: FRAX RISK QUESTIONS: Alcohol (3 or more units per day): no Family History (Parent hip fracture): no Glucocorticoids (More than 3mos): no (Ex: prednisone, prednisolone, methylprednisolone, dexamethasone, and hydrocortisone). History of Fracture in Adulthood: no Secondary Osteoporosis: 1. Type 1 Diabetes: no 2. Hyperthyroidism: no 3. Menopause before 45: no 4. Malnutrition: no 5. Chronic liver disease: no Rheumatoid Arthritis: no Current Tobacco Use: no RISK FACTORS HISTORY OF: Surgery to Spine/Hip(right/left)/Wrist (right/left): no Family History of Osteoporosis: no Active: no Diet low in dairy products/other sources of calcium: yes Postmenopausal woman: yes Lost more than 2 inches in height since high school: no MEDICATIONS: diabetic meds, lisinopril, Cymbalta, narco, vitamins Additional History: EXAM MEASUREMENTS: Bone mineral densitometry was performed using the [employer] Pet System. Bone mineral density as measured about the Lumbar spine is: ----- L1-L4(G/cm2): 1.246 T Score Values are as follows: ----- L2: 0.5 ----- L3: 0.5 ----- L4: 1.6 ----- L1-L4: 0.6 Bone mineral density : baseline Bone mineral density about the R hip (g/cm2): 0.797 Bone mineral density about the L hip (g/cm2): 0.758 T Score values are as follows: -----R Neck: -1.7 -----L Neck: -2.0 -----R Total: -2.2 -----L Total: -2.0 Bone mineral density : baseline IMPRESSION: Osteopenia (T Score between -2.5 and -1). There is slightly increased risk of fracture and the patient may be considered for treatment. Re-Screen 2-5 years. NOTE: T-SCORE=SD OF THE YOUNG ADULT MEAN.
== END | disposition home or self-care (01) ==
LOC: RADBDWWP 11:51
PROVIDERS: ATTEND Family Medicine
DX: M85.80 Other specified disorders of bone density and structure, unspecified site (principal); Z78.0 Asymptomatic menopausal state
CPT/HCPCS: 77080

== ENCOUNTER → 2021-04-08 | Outpatient (CLI) | payer MEDICARE, OTHER ==
--- NOTE | 2021-04-09 06:37 | US ---
EXAMINATION TYPE: US venous doppler duplex LE DATE OF EXAM: 04/08/2021 5:51 PM COMPARISON: NONE CLINICAL HISTORY: Localized edema. SIDE PERFORMED: Bilateral TECHNIQUE: The lower extremity deep venous system is examined utilizing real time linear array sonog quiana with graded compression, doppler sonography and color-flow sonography. VESSELS IMAGED: Common Femoral Vein Deep Femoral Vein Greater Saphenous Vein * Femoral Vein Popliteal Vein Small Saphenous Vein * Proximal Calf Veins (* superficial vessels) Right Leg: Appears negative for DVT Left Leg: Appears negative for DVT Grayscale, color doppler, spectral doppler imaging performed of the deep veins of the bilateral lower extremities. There is normal flow, compressibility, vascular waveforms. IMPRESSION: No ultrasound evidence for acute DVT in either lower extremity.
== END | disposition home or self-care (01) ==
LOC: RADUSWWP 17:23
PROVIDERS: ATTEND Family Medicine
DX: R60.0 Localized edema (principal)
CPT/HCPCS: 93970

== ENCOUNTER 2021-08-25 13:10 | Inpatient (IN) | payer MEDICARE, OTHER ==
--- NOTE | 2021-08-25 13:36 | ED ---
General Adult HPI - General Chief complaint: Weakness Stated complaint: hand injury Time Seen by Provider: 08/25/21 13:25 Source: patient, RN notes reviewed, old records reviewed Mode of arrival: ambulatory Limitations: no limitations - History of Present Illness Initial comments: This is a 65-year-old female presents emergency Department complaining of generalized weakness according to the patient she's always weak but over the last 2 days she's feeling extremely weak to the point where it was difficult for her to get up and go to the bathroom. Patient states she is also feeling much more short of breath. Patient states she has a history of diabetes hypertension high cholesterol. Patient also states she has COPD. Patient denies any recent fever chills or cough per patient denies any chest pain or palpitations. Patient denies any abdominal pain patient denies nausea vomiting diarrhea. Patient states she also points to her hand between her walker in the wall and that caused an area of ecchymosis it is bleeding. Patient denies any pain to the hand patient has full range of motion of the hand and wrist. Patient denies being on blood thinners - Related Data Home Medications Medication Instructions Recorded Confirmed DULoxetine HCL [Cymbalta] 60 mg PO BID 09/10/13 02/15/19 Multivitamins, Thera [Multivitamin 3 tab PO DAILY 01/02/15 02/15/19 (formulary)] bisacodyL [Dulcolax] 5 mg PO DAILY 01/17/19 02/15/19 lisinopriL [Zestril] 5 mg PO DAILY 01/17/19 02/19/19 sitaGLIPtin [Januvia] 25 mg PO DAILY 01/17/19 02/15/19 traZODone HCL [Desyrel] 100 mg PO HS 01/17/19 02/15/19 HYDROcodone/APAP 10-325MG [[place] 1 tab PO TID PRN 01/24/19 02/15/19 10-325] Omeprazole 20 mg PO DAILY 01/24/19 02/15/19 metFORMIN HCL [Glucophage] 1,000 mg PO BID 01/24/19 02/15/19 Lipitor 1 tab PO DAILY 02/15/19 Previous Rx's Medication Instructions Recorded Vitamin A [Vitamin A (8,000 Units 8,000 unit PO DAILY #90 capsule 12/10/15 = 2,400 MCG)] Aspirin 81 mg PO DAILY chew 01/26/19 Doxycycline [Vibramycin] 100 mg PO BID 1 Days #10 capsule 07/30/20 Allergies Allergy/AdvReac Type Severity Reaction Status Date / Time Penicillins Allergy Severe Unknown Verified 08/25/21 13:24 Childhood TRACE METALS Allergy itching,rachna Uncoded 08/25/21 13:24 h Review of Systems ROS Statement: Those systems with pertinent positive or pertinent negative responses have been documented in the HPI. ROS Other: All systems not noted in ROS Statement are negative. Past Medical History Past Medical History: Chest Pain / Angina, COPD, Diabetes Mellitus, GERD/Reflux, Hyperlipidemia, Hypertension, Osteoarthritis (OA), Skin Disorder, Sleep Apnea/CPAP/BIPAP Additional Past Medical History / Comment(s): Diagnosed with mild pancreatitis on 01/22/19, NIDDM type II, neuropathy bilateral hands/legs/feet, arthritis in multiple joints, bilateral carpal tunnel syndrome, gastric ulcer, ADRIANA-no longer uses device since wt loss, varicose veins, venous dermatitis. History of Any Multi-Drug Resistant Organisms: None Reported Past Surgical History: Adenoidectomy, Appendectomy, Bariatric Surgery, Cholecystectomy, Orthopedic Surgery, Tonsillectomy Additional Past Surgical History / Comment(s): 01/13/15 Lap laila en Y gastric bypass with lysis of adhesions, EGDs, colonoscopies, bilateral knee arthroscopy, bilateral knee replacements, D&C Past Anesthesia/Blood Transfusion Reactions: No Reported Reaction Additional Past Anesthesia/Blood Transfusion Reaction / Comment(s): Pt is slow to wake from anesthesia. She has received blood in past without reaction. Past Psychological History: Anxiety, Depression Smoking Status: Former smoker Past Alcohol Use History: None Reported Past Drug Use History: None Reported - Past Family History Mother Family Medical History: Cancer, Deep Vein Thrombosis (DVT) Additional Family Medical History / Comment(s): Mother had uterine cancer. Father Family Medical History: Congestive Heart Failure (CHF), Sleep Apnea/CPAP/BIPAP Additional Family Medical History / Comment(s): Father was an alcoholic. He of CHF at the age of 48yrs. General Exam - General Exam Comments Initial Comments: GENERAL: Patient is well-developed and well-nourished. Patient is nontoxic and well- hydrated and is in mild distress. ENT: Neck is soft and supple. No significant lymphadenopathy is noted. Oropharynx is clear. Moist mucous membranes. Neck has full range of motion without eliciting any pain. EYES: The sclera were anicteric and conjunctiva were pink and moist. Extraocular movements were intact and pupils were equal round and reactive to light. Eyelids were unremarkable. PULMONARY: Unlabored respirations. Good breath sounds bilaterally. No audible rales rhonchi or wheezing was noted. CARDIOVASCULAR: Patient is tachycardic in the 110 bpm ABDOMEN: Soft and nontender with normal bowel sounds. SKIN: Skin is clear with no lesions or rashes and otherwise unremarkable. NEUROLOGIC: Patient is alert and oriented x3. Cranial nerves II through XII are grossly intact. Motor and sensory are also intact. Normal speech, volume and content. Symmetrical smile. MUSCULOSKELETAL: Normal extremities with adequate strength and full range of motion. Patient's right hand has area of ecchymosis that is actively bleeding. LYMPHATICS: No significant lymphadenopathy is noted PSYCHIATRIC: Normal psychiatric evaluation. Limitations: no limitations Course Vital Signs 08/25/21 13:20 Temperature 98.0 F Pulse Rate 113 H Respiratory 20 Rate Blood Pressure 94/73 O2 Sat by Pulse 99 Oximetry Medical Decision Making - Medical Decision Making EKG shows sinus rhythm at 100 bpm with an occasional PAC MN interval is 160s first-degree AV block QRSs 85 QT interval 335 QTC is 392. EKG shows no ST segment elevation or depression I started the patient on heparin with the assumption that she might have a PE because of the elevated d-dimer troponin patient's tachycardia and dyspnea. I spoke with the significant hospitalist agreed to accept the patient I did indicate to them that a VQ scan was pending at about 5:30 today and they need to follow that up they were in agreement with following the VQ scan. - Lab Data Result diagrams: 08/25/21 13:50 08/25/21 13:50 Lab Results 08/25/21 08/25/21 08/25/21 Range/Units 13:50 13:50 13:50 WBC 8.6 (3.8-10.6) k/uL RBC 3.67 L (3.80-5.40) m/uL Hgb 10.8 L (11.4-16.0) gm/dL Hct 32.4 L (34.0-46.0) % MCV 88.3 (80.0-100.0) fL MCH 29.3 (25.0-35.0) pg MCHC 33.2 (31.0-37.0) g/dL RDW 15.6 H (11.5-15.5) % Plt Count 20 L (150-450) k/uL MPV 8.4 Neutrophils % 80 % Lymphocytes % 9 % Monocytes % 7 % Eosinophils % 0 % Basophils % 1 % Neutrophils # 6.8 (1.3-7.7) k/uL Lymphocytes # 0.8 L (1.0-4.8) k/uL Monocytes # 0.6 (0-1.0) k/uL Eosinophils # 0.0 (0-0.7) k/uL Basophils # 0.1 (0-0.2) k/uL Manual Slide Review Performed Poikilocytosis Slight PT 12.0 (9.0-12.0) sec INR 1.1 (<1.2) APTT 23.4 (22.0-30.0) sec D-Dimer 2.46 H (<0.60) mg/L FEU Sodium 138 (137-145) mmol/L Potassium 4.3 (3.5-5.1) mmol/L Chloride 107 (98-107) mmol/L Carbon Dioxide 21 L (22-30) mmol/L Anion Gap 10 mmol/L BUN 95 H (7-17) mg/dL Creatinine 2.95 H (0.52-1.04) mg/dL Est GFR (CKD-EPI)AfAm 18 (>60 ml/min/1.73 sqM) Est GFR (CKD-EPI)NonAf 16 (>60 ml/min/1.73 sqM) Glucose 262 H (74-99) mg/dL Plasma Lactic Acid Bradly (0.7-2.0) mmol/L Calcium 8.4 (8.4-10.2) mg/dL Magnesium 1.6 (1.6-2.3) mg/dL Total Bilirubin 2.7 H (0.2-1.3) mg/dL AST 85 H (14-36) U/L ALT 21 (4-34) U/L Alkaline Phosphatase 118 (38-126) U/L Troponin I (0.000-0.034) ng/mL Total Protein 6.1 L (6.3-8.2) g/dL Albumin 3.3 L (3.5-5.0) g/dL 08/25/21 08/25/21 Range/Units 13:50 13:50 WBC (3.8-10.6) k/uL RBC (3.80-5.40) m/uL Hgb (11.4-16.0) gm/dL Hct (34.0-46.0) % MCV (80.0-100.0) fL MCH (25.0-35.0) pg MCHC (31.0-37.0) g/dL RDW (11.5-15.5) % Plt Count (150-450) k/uL MPV Neutrophils % % Lymphocytes % % Monocytes % % Eosinophils % % Basophils % % Neutrophils # (1.3-7.7) k/uL Lymphocytes # (1.0-4.8) k/uL Monocytes # (0-1.0) k/uL Eosinophils # (0-0.7) k/uL Basophils # (0-0.2) k/uL Manual Slide Review Poikilocytosis PT (9.0-12.0) sec INR (<1.2) APTT (22.0-30.0) sec D-Dimer (<0.60) mg/L FEU Sodium (137-145) mmol/L Potassium (3.5-5.1) mmol/L Chloride (98-107) mmol/L Carbon Dioxide (22-30) mmol/L Anion Gap mmol/L BUN (7-17) mg/dL Creatinine (0.52-1.04) mg/dL Est GFR (CKD-EPI)AfAm (>60 ml/min/1.73 sqM) Est GFR (CKD-EPI)NonAf (>60 ml/min/1.73 sqM) Glucose (74-99) mg/dL Plasma Lactic Acid Bradly 2.7 H* (0.7-2.0) mmol/L Calcium (8.4-10.2) mg/dL Magnesium (1.6-2.3) mg/dL Total Bilirubin (0.2-1.3) mg/dL AST (14-36) U/L ALT (4-34) U/L Alkaline Phosphatase (38-126) U/L Troponin I 0.431 H* (0.000-0.034) ng/mL Total Protein (6.3-8.2) g/dL Albumin (3.5-5.0) g/dL Critical Care Time Critical Care Time: Yes Total Critical Care Time: 35 Disposition Clinical Impression: Generalized weakness, Acute renal failure, Lactic acidosis, Dyspnea, Elevated d-dimer, Lung nodule, Elevated troponin Disposition: ADMITTED IP TO THIS HOSP Referrals: Mamadou Gerard DO [Primary Care Provider] - 1-2 days Time of Disposition: 14:26
[2021-08-25 13:54] LABS: Basophils # (A) 0.1 k/uL (0-0.2); Basophils % (A) 1 %; Eosinophils % (A) 0 %; HCT 32.4 % (34.0-46.0); HGB 10.8 gm/dL (11.4-16.0); Lymphocytes # (A) 0.8 k/uL (1.0-4.8); Lymphocytes % (A) 9 %; MCH 29.3 pg (25.0-35.0); MCHC 33.2 g/dL (31.0-37.0); MCV 88.3 fL (80.0-100.0); Mean Platelet Volume 8.4; Monocytes # (A) 0.6 k/uL (0-1.0); Monocytes % (A) 7 %; Neutrophils # (A) 6.8 k/uL (1.3-7.7); Neutrophils % (A) 80 %; Poikilocytosis Slight; RBC 3.67 m/uL (3.80-5.40); RDW 15.6 % (11.5-15.5); WBC 8.6 k/uL (3.8-10.6)
[2021-08-25 14:02] LABS: Albumin 3.3 g/dL (3.5-5.0); Calcium 8.4 mg/dL (8.4-10.2); Magnesium 1.6 mg/dL (1.6-2.3); Potassium 4.3 mmol/L (3.5-5.1); Total Bilirubin 2.7 mg/dL (0.2-1.3); Total Protein 6.1 g/dL (6.3-8.2)
[2021-08-25 14:06] LABS: INR 1.1 (<1.2); Partial Thromboplastin Time 23.4 sec (22.0-30.0)
[2021-08-25 14:20] LABS: Platelet Count 20 k/uL (150-450)
--- NOTE | 2021-08-25 14:21 | XR ---
EXAMINATION TYPE: XR chest 2V DATE OF EXAM: 08/25/2021 COMPARISON: NONE TECHNIQUE: PA and lateral views submitted. HISTORY: Weakness FINDINGS: The lungs are clear and there is no pneumothorax, pleural effusion, or focal pneumonia. Hyperinflati on. Diffuse osteopenia and arthropathy of the shoulders. Hypertrophic and degenerative changes of the spine. A prominent nodularity in the left hilum short-term follow-up CT chest recommended. IMPRESSION: 1. No acute process. Correlate for COPD. 1.4 cm prominent nodularity left hilum recommend short-term follow-up CT chest.
[2021-08-25] MEDS ORDERED: NITROGLYCERIN SL TABS 0.4 MG TAB SUBLINGUAL PRN (14:43)
[2021-08-25] MEDS ORDERED: HEPARIN SODIUM 1,000 UN/ML (10ML VL) IV ONE (14:43)
[2021-08-25] MEDS: HEPARIN SOD,PORK IN 0.45% NACL 25,000 UNIT in 0.45% NACL 1 250ML.BAG IV SCH (16:17)
[2021-08-25] MEDS ORDERED: FLUTICASONE 50MCG/SPRAY NASAL 16GM EA NOSTRIL PRN (16:49)
[2021-08-25 17:16] LABS: Appearance,Urine Turbid (Clear); Bacteria,Urine Occasional /hpf; Bilirubin,Urine 1+ (Negative); Blood,Urine Large (Negative); Color,Urine Dark Brown; Glucose,Urine (UA) 1+ (Negative); Granular Casts,Urine 10 /lpf (0); Ketones,Urine Negative (Negative); Leukocyte Esterase,Urine Small (Negative); Mucus,Urine Rare /hpf; Nitrite,Urine Negative (Negative); Protein,Urine 4+ (Negative); RBC,Urine 78 /hpf (0-5); Specific Gravity,Urine 1.032 (1.001-1.035); WBC,Urine 34 /hpf (0-5)
--- NOTE | 2021-08-25 18:06 | NM ---
EXAMINATION TYPE: NM pul vent and perfuse DATE OF EXAM: 08/25/2021 COMPARISON: NONE HISTORY: Short of breath TECHNIQUE: Utilizing inhalation of 37.4 mCi Tc 99m DTPA aerosol and intravenous injection of 5.2 mCi of Tc 99m MAA, ventilation and perfusion images are acquired post injection in multiple projections. FINDINGS: There are matching ventilation and perfusion defects involving the left lung base. This likely relate s to airway disease. No evidence of any unmatched segmental or significant subsegmental perfusion def ect. IMPRESSION: Matching defect at the left lung base related to airway disease. There is low probability of pulmonar y embolism.
--- NOTE | 2021-08-25 19:03 | CT ---
EXAMINATION TYPE: CT chest wo con DATE OF EXAM: 08/25/2021 COMPARISON: 03/24/2020 HISTORY: LT hilum prominent CT DLP: 344.9 mGycm Automated exposure control for dose reduction was used. Images obtained from the thoracic inlet to the diaphragm with no contrast. The lungs are clear of inf iltrate. No pleural effusion. Heart size is normal. No pericardial effusion. There is some coronary a rtery calcification. There are no hilar masses. No mediastinal adenopathy. The ascending aorta measures 4 cm. The thoracic spine is intact. No compression fracture. Sternum is intact. The ribs appear intact. IMPRESSION: There is borderline aneurysm of the ascending aorta. No evidence of a hilar mass. Lungs are clear. No evidence of acute lung disease.
--- NOTE | 2021-08-25 19:55 | HP ---
HISTORY AND PHYSICAL CHIEF COMPLAINTS: Weakness, fall and renal failure. HISTORY OF PRESENT ILLNESS: This 65-year-old woman with a past medical history of COPD, diabetes mellitus and GERD was not feeling well over the past several days. The patient was becoming progressively short of breath, confused, weak. The patient apparently had a fall and had injury of the right dorsum of the wrist also. The patient was taken to [facility] and was found to have elevated creatinine up to 2.9, indicating acute renal failure, some thrombocytopenia and elevated plasma lactic acid and elevated troponin. There is no history of any fever, rigor or chills. No history of headache, loss of consciousness, seizures. The patient was apparently taking some antibiotics also recently; exact details are not available. Otherwise the patient is confused, and most of the history is taken from my discussion with staff, discussion with significant other at bedside, ER physician and review of the chart. PAST MEDICAL HISTORY: History of the COPD, diabetes mellitus, GERD. Other history is reviewed. HOME MEDICATIONS: Again reviewed. They include fluticasone, metformin. Doses and the rest of the medications are reviewed. ALLERGIES: PENICILLINS. FAMILY HISTORY: History of cancer, DVT. SOCIAL HISTORY: History of smoking. REVIEW OF SYSTEMS: Fourteen-point review of systems negative except as mentioned earlier. PHYSICAL EXAMINATION: Pulse is 113, blood pressure 94/70, respiration 20. HEENT: Conjunctivae normal. NECK: No jugular venous distention. CARDIOVASCULAR: S1, S2 muffled. RESPIRATION: Breath sounds diminished at the bases. A few scattered rhonchi. ABDOMEN: Soft, obese. LEGS: Bilateral leg edema. NERVOUS SYSTEM: Diffusely weak. SKIN: Diffuse ecchymosis present, especially in the arms. No petechiae present. JOINTS: No active deforming arthropathy. LYMPHATICS: No lymph node palpable in neck, axillae or groin. LABS: Reviewed. As mentioned earlier, creatinine 2.9. Other labs are also reviewed. The chest x-ray which was reviewed personally by me was reported as some prominent nodularity in the left hilum. EKG reviewed. ASSESSMENT: 1. Renal failure, possibly acute renal failure, undetermined etiology. Rule out HUS. 2. Change in mental status, metabolic encephalopathy. 3. Elevated troponin; 0.431. 4. Rule out sepsis. 5. Diabetes mellitus, type 2. 6. Chronic obstructive pulmonary disease. 7. Multiple medical issues. RECOMMENDATIONS AND DISCUSSION: In this 65-year-old woman who presented with multiple complex medical issues, at this time I recommend to continue current medications, nephrology evaluation. The patient has significant thrombocytopenia. I would recommend holding the heparin and consult Cardiology as well for the elevated troponin. I would also perform cultures to rule out possible sepsis. Hold the antibiotics for now. Otherwise, home medications will be reconciled. Stop the metformin and other nephrotoxic agents. Overall prognosis once again is guarded. Further recommendations to follow. MMODL / IJN: [id number] /
[2021-08-25] MEDS: ATORVASTATIN 40 MG TAB PO SCH (21:27)
[2021-08-26] MEDS: IPRATROPIUM 0.5 MG/2.5 ML NEBU INHALATION SCH ×4 (08:11→20:09)
[2021-08-26 08:33] LABS: Anisocytosis Slight; Basophils % (A) 1 %; Eosinophils # (A) 0.2 k/uL (0-0.7); Eosinophils % (A) 2 %; HCT 25.2 % (34.0-46.0); Lymphocytes # (A) 1.4 k/uL (1.0-4.8); Lymphocytes % (A) 20 %; MCH 30.1 pg (25.0-35.0); MCHC 34.2 g/dL (31.0-37.0); MCV 87.9 fL (80.0-100.0); Monocytes # (A) 0.6 k/uL (0-1.0); Monocytes % (A) 8 %; Neutrophils # (A) 4.7 k/uL (1.3-7.7); Neutrophils % (A) 66 %; Poikilocytosis Slight; RBC 2.86 m/uL (3.80-5.40); RDW 16.1 % (11.5-15.5); WBC 7.1 k/uL (3.8-10.6)
[2021-08-26 08:56] LABS: Potassium 4.2 mmol/L (3.5-5.1)
[2021-08-26 08:57] LABS: ALT 15 U/L (4-34); AST 51 U/L (14-36); African American GFR (CKD) 14 (>60 ml/min/1.73 sqM); Albumin 2.6 g/dL (3.5-5.0); Alkaline Phosphatase 93 U/L (38-126); Anion Gap 8 mmol/L; Calcium 7.7 mg/dL (8.4-10.2); Carbon Dioxide 21 mmol/L (22-30); Chloride 108 mmol/L (98-107); Glucose 180 mg/dL (74-99); Non-African American GFR(CKD) 12 (>60 ml/min/1.73 sqM); Sodium 137 mmol/L (137-145); Total Bilirubin 1.9 mg/dL (0.2-1.3); Total Protein 5.1 g/dL (6.3-8.2)
[2021-08-26 09:06] LABS: HGB 8.6 gm/dL (11.4-16.0); Platelet Count 20 k/uL (150-450)
[2021-08-26 09:11] LABS: Blood Urea Nitrogen 108 mg/dL (7-17)
[2021-08-26] MEDS: HEPARIN SOD,PORK IN 0.45% NACL 25,000 UNIT in 0.45% NACL 1 250ML.BAG IV SCH (09:40)
[2021-08-26] MEDS: ASPIRIN 325 MG TAB PO SCH (09:48)
[2021-08-26] MEDS: PANTOPRAZOLE 40 MG TABLET PO SCH (09:48)
[2021-08-26] MEDS: METOPROLOL TARTRATE 25 MG TAB PO SCH ×2 (09:48→20:16)
--- NOTE | 2021-08-26 09:59 | P.NPCON ---
History of Present Illness - Reason for Consult acute renal failure - History of Present Illness Reason for consultation: Acute kidney injury History of present illness: Patient is a 65-year-old female seen in renal consultation for acute kidney injury. Patient's creatinine in October 2020 was near 0.6 and was elevated at 2.95 this admission. It is up to 3.73 today. Patient presented to the hospital due to generalized weakness. She was having a difficult time performing daily tasks according to her significant other. Oral intake has been poor the last few days. She denies vomiting or diarrhea. Denies hematuria or dysuria. Denies use of nonsteroidals. Patient's blood pressure was low in the systolic 90s on admission. This morning her blood pressure was 122/70. Chest x-ray showed no acute process. VQ scan showed low probability of PE. No evidence of fluid overload or effusions noted on CT chest. Patient does have history of diabetes and was maintained on metformin outpatient. She was also on lisinopril. Both of these medications are currently held. Patient has not received any IV fluids since admission. Patient is also noted to be thrombocytopenic with platelet count of 20,000 and hemoglobin of 8.6. Vital signs are stable. General: Awake. No acute distress. HEENT: Head exam is unremarkable. LUNGS: Breath sounds decreased. HEART: Rate and Rhythm are regular. ABDOMEN: Soft, no distention. EXTREMITITES: No edema. Past Medical History Past Medical History: Chest Pain / Angina, COPD, Diabetes Mellitus, GERD/Reflux, Hyperlipidemia, Hypertension, Osteoarthritis (OA), Skin Disorder, Sleep Apnea/CPAP/BIPAP Additional Past Medical History / Comment(s): Diagnosed with mild pancreatitis on 01/22/19, NIDDM type II, neuropathy bilateral hands/legs/feet, arthritis in multiple joints, bilateral carpal tunnel syndrome, gastric ulcer, ADRIANA-no longer uses device since wt loss, varicose veins, venous dermatitis. History of Any Multi-Drug Resistant Organisms: None Reported Past Surgical History: Adenoidectomy, Appendectomy, Bariatric Surgery, Cholecystectomy, Orthopedic Surgery, Tonsillectomy Additional Past Surgical History / Comment(s): 01/13/15 Lap laila en Y gastric bypass with lysis of adhesions, EGDs, colonoscopies, bilateral knee arthroscopy, bilateral knee replacements, D&C Past Anesthesia/Blood Transfusion Reactions: No Reported Reaction Additional Past Anesthesia/Blood Transfusion Reaction / Comment(s): Pt is slow to wake from anesthesia. She has received blood in past without reaction. Past Psychological History: Anxiety, Depression Additional Psychological History / Comment(s): Pt resides with her SO. She uses a cane and walker if needed. She has never had a drive away driver's license- her SO takes her to appts. Smoking Status: Former smoker Past Alcohol Use History: None Reported Additional Past Alcohol Use History / Comment(s): Pt started smoking in 1969 and quit smoking in 2009 Past Drug Use History: None Reported - Past Family History Mother Family Medical History: Cancer, Deep Vein Thrombosis (DVT) Additional Family Medical History / Comment(s): Mother had uterine cancer. Father Family Medical History: Congestive Heart Failure (CHF), Sleep Apnea/CPAP/BIPAP Additional Family Medical History / Comment(s): Father was an alcoholic. He of CHF at the age of 48yrs. Medications and Allergies Home Medications Medication Instructions Recorded Confirmed Type DULoxetine HCL [Cymbalta] 60 mg PO BID 09/10/13 08/25/21 History lisinopriL [Zestril] 2.5 mg PO DAILY 01/17/19 08/25/21 History traZODone HCL [Desyrel] 100 mg PO HS 01/17/19 08/25/21 History HYDROcodone/APAP 10-325MG [[place] 1 tab PO TID PRN 01/24/19 08/25/21 History 10-325] Omeprazole 20 mg PO DAILY 01/24/19 08/25/21 History Atorvastatin Calcium [Lipitor] 40 mg PO HS 08/25/21 08/25/21 History Fluticasone Nasal [place] [Flonase 1 spray EA NOSTRIL DAILY PRN 08/25/21 08/25/21 History Nasal [place]] QUEtiapine [SEROquel] 25 mg PO HS 08/25/21 08/25/21 History Tiotropium 2.5 Mcg/Puff [Spiriva 2 puff INHALATION RT-DAILY 08/25/21 08/25/21 History Respimat 2.5 Mcg] metFORMIN HCL 1,000 mg PO BID 08/25/21 08/25/21 History Allergies Allergy/AdvReac Type Severity Reaction Status Date / Time Penicillins Allergy Severe Anaphylaxis Verified 08/25/21 15:16 TRACE METALS Allergy itching,rachna Uncoded 08/25/21 13:24 h Physical Exam Vitals: Vital Signs Temp Pulse Pulse Resp BP BP Pulse Ox 08/26/21 08:23 83 08/26/21 08:11 94 100 08/26/21 04:54 99.0 F 98 122/70 97 08/26/21 03:00 98.9 F 104 H 16 98/56 98 08/26/21 01:50 99.1 F 99 17 90/54 99 08/25/21 22:48 78 18 148/85 97 08/25/21 20:00 99 17 08/25/21 18:24 98.9 F 99 18 124/80 97 08/25/21 13:20 98.0 F 113 H 20 94/73 99 Intake and Output 08/25/21 08/26/21 08/26/21 22:59 06:59 14:59 Other: Voiding Method External Catheter # Voids 1 # Bowel Movements 0 Weight 84 kg Results - Lab Results Most recent lab results Calcium 7.7 mg/dL (8.4-10.2) L 08/26/21 07:49 Magnesium 1.6 mg/dL (1.6-2.3) 08/25/21 13:50 08/26/21 07:49 08/26/21 07:49 Assessment and Plan Plan: Assessment: 1. Acute kidney injury secondary to ATN secondary to hypotension and further worsened with the use of lisinopril. Creatinine was 2.95 on admission and is 3.73 today. Rule out obstructive uropathy. Also rule out HUS/TTP as patient is noted to be anemic and thrombocytopenic. Creatinine in October 2020 was 0.6. 2. Metabolic acidosis secondary to acute kidney injury. 3. Diabetes. Plan: Start normal saline at 75 mL an hour. Check bladder scan to rule out urinary retention. Check renal ultrasound. Continue to hold antihypertensives. Check LDH and heptoglobin. Check serologies. Quantify proteinuria. Hematology consulted. No schistocytes noted on CBC. Continue to monitor renal function and urine output. Follow-up echocardiogram. Check iron studies. Thank you for the consultation. I will continue to follow the patient with you during her hospital stay.
--- NOTE | 2021-08-26 11:41 | US ---
EXAMINATION TYPE: US kidneys/renal and bladder DATE OF EXAM: 08/26/2021 COMPARISON: CT CLINICAL HISTORY: carlos. CARLOS EXAM MEASUREMENTS: Right Kidney: 12.0 x 6.3 x 4.9 cm Left Kidney: 11.9 x 5.6 x 6.5 cm Right Kidney: Measures upper limits of normal. Left Kidney: No hydronephrosis or masses seen. Slightly limited due to gas. Bladder: Not distended, unable to visualize. Bilateral Jets seen: No IMPRESSION: Unremarkable study
--- NOTE | 2021-08-26 12:14 | P.CNPUL ---
History of Present Illness Consult date: 08/26/21 Requesting physician: Shelby Linares Reason for consult: dyspnea, COPD Chief complaint: Weakness, mental status changes. History of present illness: Pulmonary consult dated 08/26/2021. 65-year-old female who we are asked to see for COPD. On talking to the patient, who is not a particularly good historian, the patient states and her states, that she was admitted for mental status changes, and profound weakness. She is not really having any shortness of breath although it was documented so, in the ER annmarie. She apparently does carry with her a diagnosis of COPD. Her primary care physician is Dr. Gerard. She apparently has seen a lung doctor in the past but does not remember who was that she saw. She only uses Spiriva for her COPD. She does not use oxygen at home. The patient apparently has a history of angina, COPD, diabetes, GERD, hyperlipidemia, hypertension, sleep ap fredy, diabetic neuropathy, arthritis, varicose veins, and gastric ulcer. White count 7.1, hemoglobin 8.6, hematocrit 25.2, and platelet count 20,000. Sodium 137, potassium 4.2, chlorides 108, CO2 21, BUN 108, and creatinine 3.73. Troponins were 0.372 and 0.331. Urine specimen is suspicious for urinary tract infection. Chest x-ray shows no acute process, changes of COPD, a possible 1.4 cm nodularity in the left hilum. Perfusion lung scan was low probability for pulmonary embolism. Chest CT showed a borderline aneurysm of the ascending aorta, and no lung mass. Review of Systems REVIEW OF SYSTEMS: CONSTITUTIONAL: Profound weakness. NEUROLOGIC: Confusion. HEENT: [ Negative.] CARDIAC: [Negative.] PULMONARY: Chronic mild shortness of breath on exertion, unchanged. GI: [Negative.] : [Negative.] RHEUMATOLOGIC: [ Negative.] IMMUNOLOGIC: [ Negative.] ENDOCRINE: [Negative. ] DERMATOLOGIC: [Negative.] Past Medical History Past Medical History: Chest Pain / Angina, COPD, Diabetes Mellitus, GERD/Reflux, Hyperlipidemia, Hypertension, Osteoarthritis (OA), Skin Disorder, Sleep Apnea/CPAP/BIPAP Additional Past Medical History / Comment(s): Diagnosed with mild pancreatitis on 01/22/19, NIDDM type II, neuropathy bilateral hands/legs/feet, arthritis in multiple joints, bilateral carpal tunnel syndrome, gastric ulcer, ADRIANA-no longer uses device since wt loss, varicose veins, venous dermatitis. History of Any Multi-Drug Resistant Organisms: None Reported Past Surgical History: Adenoidectomy, Appendectomy, Bariatric Surgery, Cholecystectomy, Orthopedic Surgery, Tonsillectomy Additional Past Surgical History / Comment(s): 01/13/15 Lap laila en Y gastric bypass with lysis of adhesions, EGDs, colonoscopies, bilateral knee arthroscopy, bilateral knee replacements, D&C Past Anesthesia/Blood Transfusion Reactions: No Reported Reaction Additional Past Anesthesia/Blood Transfusion Reaction / Comment(s): Pt is slow to wake from anesthesia. She has received blood in past without reaction. Past Psychological History: Anxiety, Depression Additional Psychological History / Comment(s): Pt resides with her SO. She uses a cane and walker if needed. She has never had a train driver's license- her SO takes her to appts. Smoking Status: Former smoker Past Alcohol Use History: None Reported Additional Past Alcohol Use History / Comment(s): Pt started smoking in 1969 and quit smoking in 2009 Past Drug Use History: None Reported - Past Family History Mother Family Medical History: Cancer, Deep Vein Thrombosis (DVT) Additional Family Medical History / Comment(s): Mother had uterine cancer. Father Family Medical History: Congestive Heart Failure (CHF), Sleep Apnea/CPAP/BIPAP Additional Family Medical History / Comment(s): Father was an alcoholic. He of CHF at the age of 48yrs. Medications and Allergies Home Medications Medication Instructions Recorded Confirmed Type DULoxetine HCL [Cymbalta] 60 mg PO BID 09/10/13 08/25/21 History lisinopriL [Zestril] 2.5 mg PO DAILY 01/17/19 08/25/21 History traZODone HCL [Desyrel] 100 mg PO HS 01/17/19 08/25/21 History HYDROcodone/APAP 10-325MG [[place] 1 tab PO TID PRN 01/24/19 08/25/21 History 10-325] Omeprazole 20 mg PO DAILY 01/24/19 08/25/21 History Atorvastatin Calcium [Lipitor] 40 mg PO HS 08/25/21 08/25/21 History Fluticasone Nasal [place] [Flonase 1 spray EA NOSTRIL DAILY PRN 08/25/21 08/25/21 History Nasal [place]] QUEtiapine [SEROquel] 25 mg PO HS 08/25/21 08/25/21 History Tiotropium 2.5 Mcg/Puff [Spiriva 2 puff INHALATION RT-DAILY 08/25/21 08/25/21 History Respimat 2.5 Mcg] metFORMIN HCL 1,000 mg PO BID 08/25/21 08/25/21 History Allergies Allergy/AdvReac Type Severity Reaction Status Date / Time Penicillins Allergy Severe Anaphylaxis Verified 08/25/21 15:16 TRACE METALS Allergy itching,rachna Uncoded 08/25/21 13:24 h Physical Exam Osteopathic Statement: *. No significant issues noted on an osteopathic structural exam other than those noted in the History and Physical/Consult. Vitals: Vital Signs Temp Pulse Pulse Resp BP BP Pulse Ox 08/26/21 08:23 83 08/26/21 08:11 94 100 08/26/21 08:00 98.4 F 80 18 106/67 98 08/26/21 04:54 99.0 F 98 122/70 97 08/26/21 03:00 98.9 F 104 H 16 98/56 98 08/26/21 01:50 99.1 F 99 17 90/54 99 08/25/21 22:48 78 18 148/85 97 08/25/21 20:00 99 17 08/25/21 18:24 98.9 F 99 18 124/80 97 08/25/21 13:20 98.0 F 113 H 20 94/73 99 Intake and Output 08/25/21 08/26/21 08/26/21 22:59 06:59 14:59 Other: Voiding Method External Catheter # Voids 1 # Bowel Movements 0 Weight 84 kg No acute distress, oriented 3. 2 L saturations 100%. The patient has a very flat affect. HEENT examination is grossly unremarkable. Neck supple. Full range of motion. No adenopathy thyromegaly or neck vein distention. Cardiovascular examination reveals regular rhythm rate. S1-S2 normal. No S3 or S4. No discernible murmur noted. Heart rate 83 bpm. Lungs reveal clear breath sounds. Breath sounds are equal bilaterally. No adventitious lung sounds including wheezes rhonchi or crackles. Abdomen soft bowel sounds are heard. No masses or tenderness. Extremities are intact. No cyanosis clubbing or edema. Skin is without rash or lesion. Neurologic examination is brief but nonfocal. Results - Laboratory Findings CBC and BMP: 08/26/21 07:49 08/26/21 07:49 PT/INR, D-dimer PT 12.0 sec (9.0-12.0) 08/25/21 13:50 INR 1.1 (<1.2) 08/25/21 13:50 D-Dimer 2.46 mg/L FEU (<0.60) H 08/25/21 13:50 Abnormal lab findings: Abnormal Labs 08/25/21 08/25/21 08/25/21 13:50 13:50 13:50 RBC 3.67 L Hgb 10.8 L Hct 32.4 L RDW 15.6 H Plt Count 20 L Lymphocytes # 0.8 L D-Dimer 2.46 H Chloride Carbon Dioxide 21 L BUN 95 H Creatinine 2.95 H Glucose 262 H Plasma Lactic Acid Bradly Calcium Total Bilirubin 2.7 H AST 85 H Troponin I Total Protein 6.1 L Albumin 3.3 L Urine Appearance Urine Protein Urine Glucose (UA) Urine Blood Urine Bilirubin Ur Leukocyte Esterase Urine RBC Urine WBC Urine Bacteria Urine Mucus 08/25/21 08/25/21 08/25/21 13:50 13:50 15:05 RBC Hgb Hct RDW Plt Count Lymphocytes # D-Dimer Chloride Carbon Dioxide BUN Creatinine Glucose Plasma Lactic Acid Bradly 2.7 H* Calcium Total Bilirubin AST Troponin I 0.431 H* 0.372 H* Total Protein Albumin Urine Appearance Urine Protein Urine Glucose (UA) Urine Blood Urine Bilirubin Ur Leukocyte Esterase Urine RBC Urine WBC Urine Bacteria Urine Mucus 08/25/21 08/25/21 08/26/21 16:45 19:09 07:49 RBC Hgb Hct RDW Plt Count Lymphocytes # D-Dimer Chloride 108 H Carbon Dioxide 21 L BUN 108 H* Creatinine 3.73 H Glucose 180 H Plasma Lactic Acid Bradly Calcium 7.7 L Total Bilirubin 1.9 H AST 51 H Troponin I 0.331 H* Total Protein 5.1 L Albumin 2.6 L Urine Appearance Turbid H Urine Protein 4+ H Urine Glucose (UA) 1+ H Urine Blood Large H Urine Bilirubin 1+ H Ur Leukocyte Esterase Small H Urine RBC 78 H Urine WBC 34 H Urine Bacteria Occasional H Urine Mucus Rare H 08/26/21 07:49 RBC 2.86 L Hgb 8.6 L D Hct 25.2 L RDW 16.1 H Plt Count 20 L Lymphocytes # D-Dimer Chloride Carbon Dioxide BUN Creatinine Glucose Plasma Lactic Acid Bradly Calcium Total Bilirubin AST Troponin I Total Protein Albumin Urine Appearance Urine Protein Urine Glucose (UA) Urine Blood Urine Bilirubin Ur Leukocyte Esterase Urine RBC Urine WBC Urine Bacteria Urine Mucus - Diagnostic Findings Chest x-ray: image reviewed CT scan - chest: image reviewed U/S of Legs: image reviewed Assessment and Plan Assessment: Profound weakness, and mental status changes, currently being evaluated by the primary service. COPD, which appears to be stable, and relatively mild. Acute kidney injury, secondary to ATN/hypotension. Non-anion gap metabolic acidosis. History of diabetes mellitus with diabetic neuropathy. History of sleep apnea syndrome, currently not on CPAP. History of gastroesophageal reflux disease. History of hypertension. History of hyperlipidemia. History of mild pancreatitis. History of arthritis. Prior history of Laila-en-Y bariatric surgery for obesity. Plan: Plan dated 08/26/2021. The patient is seen and evaluated. The patient's COPD appears to be relatively mild, and stable. The patient can be restarted on Spiriva, or use her home Spiriva if she wishes. No additional recommendations are made. The patient was really not admitted so much for COPD, rather, mental status changes, and weakn ess. The patient has developed acute kidney injury, secondary to ATN. She has been seen by nephrology. The patient is not having any respiratory difficulty or distress at this time. We'll follow as needed. Time with Patient: Greater than 30
[2021-08-26 13:22] LABS: Partial Thromboplastin Time 25.6 sec (22.0-30.0); Prothrombin Time 11.3 sec (9.0-12.0)
--- NOTE | 2021-08-26 14:01 | P.CRDCN ---
History of Present Illness Consult date: 08/26/21 History of present illness: HISTORY OF PRESENT ILLNESS: This is a 65-year-old female with a past medical history significant for hypertension, hyperlipidemia, and diabetes. Patient follows in the office with Dr. Aguilar. We have been asked to see the patient in consultation for abnormal troponins. Patient examined at the bedside. Patient is somewhat confused this morning. Her significant other is at the bedside. Patient presented to the hospital with a chief complaint of weakness and confusion over the past 2-3 days. She reports some dizziness. She denied any chest pain or shortness of breath. The patient was found to be in acute renal failure. She was also found to have thrombocytopenia with a platelet count of 20. The patient denies a history of acute renal failure or thrombocytopenia. * EKG reveals sinus mechanism with no signs of acute ischemia * Chest xray negative for acute process. Correlate for COPD. 1.4 cm prominent nodularity left hilum. * Laboratory data: WBC 7.1. Hemoglobin 8.6. Platelet count 20. Sodium 137. Potassium 4.2. BUN 108. Creatinine 3.73. Troponin 0.431. 0.372. 0.331. * VQ scan: Low probability of PE * CT chest: Borderline aneurysm of the ascending aorta. No evidence of hilar mass. Lungs are clear. No evidence of acute lung disease. * Current home cardiac medications include Lipitor 40 mg at night and lisinopril 2.5 mg daily * Most recent echocardiogram obtained in January 2019 revealed ejection fraction 60-65%, mild aortic regurgitation, mild tricuspid regurgitation * Cardiac catheterization history: January 2019 revealing mild non-obstructive coronary artery disease and normal left ventricular end-diastolic pressure. Medical management was recommended. REVIEW OF SYSTEMS: At the time of my exam: CONSTITUTIONAL: Denies fever or chills. HEENT: Denies blurred vision, vision changes, or eye pain. Denies hemoptysis CARDIOVASCULAR: Denies chest pain. Denies orthopnea. Denies PND. Denies palpitations RESPIRATORY: Denies shortness of breath. GASTROINTESTINAL: Denies abdominal pain. Denies nausea or vomiting. HEMATOLOGIC: Denies bleeding disorders. GENITOURINARY: Denies any blood in urine. SKIN: Denies pruitis. Denies rash. PHYSICAL EXAM: VITAL SIGNS: Reviewed. GENERAL: Well-developed in no acute distress. HEENT: Head is normocephalic. Pupils are equal, round. Sclerae anicteric. Mucous membranes of the mouth are moist. Neck supple. No JVD or thyromegaly LUNGS: Respirations even and unlabored. Lungs essentially clear to auscultation bilaterally. HEART: Regular rate and rhythm. S1 and S2 heard. ABDOMEN: Soft. Nondistended. Nontender. EXTREMITIES: Normal range of motion. No clubbing or cyanosis. Peripheral pulses intact. No lower extremity edema NEUROLOGIC: Awake and alert. Oriented x 3. ASSESSMENT: Generalized weakness Confusion Acute renal failure Abnormal troponins, secondary to acute renal failure, no evidence of acute coronary syndrome Thrombocytopenia, etiology unclear Hypertension Hyperlipidemia Diabetes Mild non-obstructive coronary artery disease, per cardiac catheterization in 2019 PLAN: Obtain 2-D echo to assess cardiac structure and function Hold lisinopril secondary to acute renal failure Resume home dose of Lipitor Begin metoprolol tartrate 25 mg twice a day Further recommendations pending patient course Nurse practitioner note has been reviewed by physician. Signing provider agrees with the documented findings, assessment, and plan of care. Past Medical History Past Medical History: Chest Pain / Angina, COPD, Diabetes Mellitus, GERD/Reflux, Hyperlipidemia, Hypertension, Osteoarthritis (OA), Skin Disorder, Sleep Apnea/CPAP/BIPAP Additional Past Medical History / Comment(s): Diagnosed with mild pancreatitis on 01/22/19, NIDDM type II, neuropathy bilateral hands/legs/feet, arthritis in multiple joints, bilateral carpal tunnel syndrome, gastric ulcer, ADRIANA-no longer uses device since wt loss, varicose veins, venous dermatitis. History of Any Multi-Drug Resistant Organisms: None Reported Past Surgical History: Adenoidectomy, Appendectomy, Bariatric Surgery, Cholecystectomy, Orthopedic Surgery, Tonsillectomy Additional Past Surgical History / Comment(s): 01/13/15 Lap laila en Y gastric bypass with lysis of adhesions, EGDs, colonoscopies, bilateral knee arthroscopy, bilateral knee replacements, D&C Past Anesthesia/Blood Transfusion Reactions: No Reported Reaction Additional Past Anesthesia/Blood Transfusion Reaction / Comment(s): Pt is slow to wake from anesthesia. She has received blood in past without reaction. Past Psychological History: Anxiety, Depression Additional Psychological History / Comment(s): Pt resides with her SO. She uses a cane and walker if needed. 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 Smoking Status: Former smoker Past Alcohol Use History: None Reported Additional Past Alcohol Use History / Comment(s): Pt started smoking in 1969 and quit smoking in 2009 Past Drug Use History: None Reported - Past Family History Mother Family Medical History: Cancer, Deep Vein Thrombosis (DVT) Additional Family Medical History / Comment(s): Mother had uterine cancer. Father Family Medical History: Congestive Heart Failure (CHF), Sleep Apnea/CPAP/BIPAP Additional Family Medical History / Comment(s): Father was an alcoholic. He of CHF at the age of 48yrs. Medications and Allergies Home Medications Medication Instructions Recorded Confirmed Type DULoxetine HCL [Cymbalta] 60 mg PO BID 09/10/13 08/25/21 History lisinopriL [Zestril] 2.5 mg PO DAILY 01/17/19 08/25/21 History traZODone HCL [Desyrel] 100 mg PO HS 01/17/19 08/25/21 History HYDROcodone/APAP 10-325MG [[place] 1 tab PO TID PRN 01/24/19 08/25/21 History 10-325] Omeprazole 20 mg PO DAILY 01/24/19 08/25/21 History Atorvastatin Calcium [Lipitor] 40 mg PO HS 08/25/21 08/25/21 History Fluticasone Nasal [place] [Flonase 1 spray EA NOSTRIL DAILY PRN 08/25/21 08/25/21 History Nasal [place]] QUEtiapine [SEROquel] 25 mg PO HS 08/25/21 08/25/21 History Tiotropium 2.5 Mcg/Puff [Spiriva 2 puff INHALATION RT-DAILY 08/25/21 08/25/21 History Respimat 2.5 Mcg] metFORMIN HCL 1,000 mg PO BID 08/25/21 08/25/21 History Allergies Allergy/AdvReac Type Severity Reaction Status Date / Time Penicillins Allergy Severe Anaphylaxis Verified 08/25/21 15:16 TRACE METALS Allergy itching,rachna Uncoded 08/25/21 13:24 h Physical Exam Vitals: Vital Signs Temp Pulse Pulse Resp BP BP Pulse Ox 08/26/21 08:23 83 08/26/21 08:11 94 100 08/26/21 04:54 99.0 F 98 122/70 97 08/26/21 03:00 98.9 F 104 H 16 98/56 98 08/26/21 01:50 99.1 F 99 17 90/54 99 08/25/21 22:48 78 18 148/85 97 08/25/21 20:00 99 17 08/25/21 18:24 98.9 F 99 18 124/80 97 08/25/21 13:20 98.0 F 113 H 20 94/73 99 Intake and Output 08/25/21 08/26/21 08/26/21 22:59 06:59 14:59 Other: Voiding Method External Catheter # Voids 1 # Bowel Movements 0 Weight 84 kg Results 08/26/21 07:49 08/26/21 07:49 Cardiac Enzymes 08/25/21 08/25/21 08/25/21 Range/Units 13:50 13:50 15:05 AST 85 H (14-36) U/L Troponin I 0.431 H* 0.372 H* (0.000-0.034) ng/mL 08/25/21 Range/Units 19:09 AST (14-36) U/L Troponin I 0.331 H* (0.000-0.034) ng/mL Coagulation 08/25/21 Range/Units 13:50 PT 12.0 (9.0-12.0) sec APTT 23.4 (22.0-30.0) sec CBC 08/25/21 Range/Units 13:50 WBC 8.6 (3.8-10.6) k/uL RBC 3.67 L (3.80-5.40) m/uL Hgb 10.8 L (11.4-16.0) gm/dL Hct 32.4 L (34.0-46.0) % Plt Count 20 L (150-450) k/uL Comprehensive Metabolic Panel 08/25/21 Range/Units 13:50 Sodium 138 (137-145) mmol/L Potassium 4.3 (3.5-5.1) mmol/L Chloride 107 (98-107) mmol/L Carbon Dioxide 21 L (22-30) mmol/L BUN 95 H (7-17) mg/dL Creatinine 2.95 H (0.52-1.04) mg/dL Glucose 262 H (74-99) mg/dL Calcium 8.4 (8.4-10.2) mg/dL AST 85 H (14-36) U/L ALT 21 (4-34) U/L Alkaline Phosphatase 118 (38-126) U/L Total Protein 6.1 L (6.3-8.2) g/dL Albumin 3.3 L (3.5-5.0) g/dL Current Medications Generic Name Dose Route Start Last Admin Trade Name Freq PRN Reason Stop Dose Admin Aspirin 325 mg 08/26/21 09:00 Aspirin 325 Mg Tab PO DAILY [facility] Atorvastatin Calcium 40 mg 08/25/21 21:00 08/25/21 21:27 Atorvastatin 40 Mg Tab PO 40 mg HS JAQUELINE Administration Fluticasone Propionate 1 spray 08/25/21 16:49 Fluticasone 50mcg/[place] Nasal 16gm EA NOSTRIL DAILY PRN Allergy Symptoms Heparin Sodium/Sodium Chloride 250 mls @ 13.88 mls/hr 08/25/21 14:45 08/25/21 16:17 25,000 unit/ Sodium Chloride IV Not Given .Q18H1M [facility] Protocol 18 UNITS/KG/HR Ipratropium [place] 0.5 mg 08/26/21 08:00 08/26/21 08:11 Ipratropium 0.5 Mg/2.5 Ml Nebu INHALATION 0.5 mg RT-QID JAQUELINE Administration Nitroglycerin 0.4 mg 08/25/21 14:43 Nitroglycerin Sl Tabs 0.4 Mg Tab SUBLINGUAL Q5M PRN Chest Pain Pantoprazole Sodium 40 mg 08/26/21 09:00 Pantoprazole 40 Mg Tablet PO DAILY [facility] Intake and Output 08/25/21 08/26/21 08/26/21 22:59 06:59 14:59 Other: Voiding Method External Catheter # Voids 1 # Bowel Movements 0 Weight 84 kg 08/25/21 13:50 08/25/21 13:50
--- NOTE | 2021-08-26 14:45 | US ---
EXAMINATION TYPE: US venous doppler duplex LE DATE OF EXAM: 08/26/2021 2:38 PM COMPARISON: NONE CLINICAL HISTORY: DVT. SIDE PERFORMED: TECHNIQUE: The lower extremity deep venous system is examined utilizing real time linear array sonog quiana with graded compression, doppler sonography and color-flow sonography. VESSELS IMAGED: Common Femoral Vein Deep Femoral Vein Greater Saphenous Vein * Femoral Vein Popliteal Vein Small Saphenous Vein * Proximal Calf Veins (* superficial vessels) Right Leg: Negative for DVT Left Leg: Negative for DVT Patient unable to tolerate compression on left mid and distal femoral vein. IMPRESSION: No evidence for DVT at this time.
[2021-08-26 14:49] LABS: % Iron Saturation 46.41 (12.00-45.00)
--- NOTE | 2021-08-26 15:47 | PN ---
PROGRESS NOTE DATE OF SERVICE: 08/26/2021 This 65-year-old woman who was admitted with acute renal failure possibly multifactorial, being closely monitored. The patient is feeling slightly better today. The creatinine is still elevated and platelets still 20. No chest pain. No palpitation. REVIEW OF SYSTEMS: 14 point review of systems is negative. Current medications reviewed and include: Aspirin and Lipitor. Dose and the rest of medications reviewed. PHYSICAL EXAMINATION: Pulse is 51, blood pressure 106/67, respiration 18, temperature normal, pulse ox 98% on 2 L. HEENT: Conjunctivae normal. Neck: No jugular venous distention. Cardiac: S1, S2 muffled. Respiration: A few scattered rhonchi. Abdomen: Soft. Nervous system: No focal deficits. LABS: Reviewed. Creatinine 3.73. ASSESSMENT: 1. Acute renal failure possibly multifactorial, rule out HUS. 2. Change in mental status, acute metabolic encephalopathy. 3. Elevated troponin 0.431. 4. Rule out sepsis. 5. Diabetes mellitus, type 2. 6. Chronic obstructive pulmonary disease. 7. Multiple medical issues. 8. Borderline aneurysm of the ascending aorta. RECOMMENDATIONS AND DISCUSSION: Continue current medications, management and symptomatic treatment. Otherwise repeat labs. Closely follow with multiple consultants. The creatinine has slightly worsened to 3.73. Continue with cautious hydration and abdominal ultrasound was done which was unremarkable. A chest CT was done which was reviewed personally and showed borderline aneurysm ascending aorta. A V/Q scan showed matching defects. Low probability for pulmonary embolism. We will continue to monitor. Prognosis guarded. Overall prognosis extremely guarded because of multiple complex medical issues and creatinine is worsening at this time which increases the complexity and risk of serious morbidity. See orders for details. Follow with multiple consultants. MMODL / IJN: [id number] /
[2021-08-26 16:11] LABS: Hepatitis A Antibody IgM Nonreactive (Nonreactive); Hepatitis B Core IgM Nonreactive (Nonreactive); Hepatitis B Surface Antigen Nonreactive (Nonreactive); Hepatitis C IgG Antibody Nonreactive (Nonreactive)
[2021-08-26 16:30] LABS: Chol/HDL Ratio 2.89 Ratio; LDL Cholesterol,Calculated 50.2 mg/dL (0.0-131.0)
[2021-08-26 16:35] LABS: Haptoglobin <10.0 mg/dL (31.2-198.0)
[2021-08-26 17:21] LABS: Anti-DNA, DS unit <1.0 IU/mL; DNA Double-Stranded NEGATIVE (NEGATIVE)
[2021-08-26 17:29] LABS: Protein, Total 5.4 g/dL (6.2-8.2)
[2021-08-26 18:19] LABS: Immunoglobulin M 67.5 mg/dL (40.0-280.0)
[2021-08-26 18:39] LABS: Iron 84 ug/dL (50-170); Rheumatoid Factor, Qnt 128 IU/mL (0-15)
--- NOTE | 2021-08-26 19:09 | P.CONS ---
History of Present Illness - Reason for Consult Consult date: 08/26/21 Thrombocytopenia Requesting physician: Taina Yuen - History of Present Illness Mrs. Velasquez was apparently brought to ER for Mental status changes. She has medical history of HTN, DIabetes, Diabetic neuropathy. On presentation she is in ARF with creat 3.5, nephrology has seen felt to be related to ATN. Bili in mildly increased and increased LFTs. PLatelets 20K therefore we were asked to further evaluate. There is no mention of schistocytes on differential, pathologist review has been ordered to further assess. at bedside and states she is less confused this evening. Nephrology is following as well. Await further work up and recheck CBC today Review of Systems All systems: negative Constitutional: Reports as per HPI Past Medical History Past Medical History: Chest Pain / Angina, COPD, Diabetes Mellitus, GERD/Reflux, Hyperlipidemia, Hypertension, Osteoarthritis (OA), Skin Disorder, Sleep Apnea/CPAP/BIPAP Additional Past Medical History / Comment(s): Diagnosed with mild pancreatitis on 01/22/19, NIDDM type II, neuropathy bilateral hands/legs/feet, arthritis in multiple joints, bilateral carpal tunnel syndrome, gastric ulcer, ADRIANA-no longer uses device since wt loss, varicose veins, venous dermatitis. History of Any Multi-Drug Resistant Organisms: None Reported Past Surgical History: Adenoidectomy, Appendectomy, Bariatric Surgery, Cholecystectomy, Orthopedic Surgery, Tonsillectomy Additional Past Surgical History / Comment(s): 01/13/15 Lap laila en Y gastric b ypass with lysis of adhesions, EGDs, colonoscopies, bilateral knee arthroscopy, bilateral knee replacements, D&C Past Anesthesia/Blood Transfusion Reactions: No Reported Reaction Additional Past Anesthesia/Blood Transfusion Reaction / Comm: Pt is slow to wake from anesthesia. She has received blood in past without reaction. Past Psychological History: Anxiety, Depression Additional Psychological History / Comment(s): Pt resides with her SO. She uses a cane and walker if needed. She has never had a [place] driver's license- her SO takes her to [employer]. Smoking Status: Former smoker Past Alcohol Use History: None Reported Additional Past Alcohol Use History / Comment(s): Pt started smoking in 1969 and quit smoking in 2009 Past Drug Use History: None Reported - Past Family History Mother Family Medical History: Cancer, Deep Vein Thrombosis (DVT) Additional Family Medical History / Comment(s): Mother had uterine cancer. Father Family Medical History: Congestive Heart Failure (CHF), Sleep Apnea/CPAP/BIPAP Additional Family Medical History / Comment(s): Father was an alcoholic. He of CHF at the age of 48yrs. Medications and Allergies Home Medications Medication Instructions Recorded Confirmed Type DULoxetine HCL [Cymbalta] 60 mg PO BID 09/10/13 08/25/21 History lisinopriL [Zestril] 2.5 mg PO DAILY 01/17/19 08/25/21 History traZODone HCL [Desyrel] 100 mg PO HS 01/17/19 08/25/21 History HYDROcodone/APAP 10-325MG [[place] 1 tab PO TID PRN 01/24/19 08/25/21 History 10-325] Omeprazole 20 mg PO DAILY 01/24/19 08/25/21 History Atorvastatin Calcium [Lipitor] 40 mg PO HS 08/25/21 08/25/21 History Fluticasone Nasal [place] [Flonase 1 spray EA NOSTRIL DAILY PRN 08/25/21 08/25/21 History Nasal [place]] QUEtiapine [SEROquel] 25 mg PO HS 08/25/21 08/25/21 History Tiotropium 2.5 Mcg/Puff [Spiriva 2 puff INHALATION RT-DAILY 08/25/21 08/25/21 History Respimat 2.5 Mcg] metFORMIN HCL 1,000 mg PO BID 08/25/21 08/25/21 History Allergies Allergy/AdvReac Type Severity Reaction Status Date / Time Penicillins Allergy Severe Anaphylaxis Verified 08/25/21 15:16 TRACE METALS Allergy itching,rachna Uncoded 08/25/21 13:24 h Physical Exam Vitals: Vital Signs Temp Pulse Pulse Resp BP BP Pulse Ox 08/26/21 12:40 51 L 08/26/21 12:26 74 08/26/21 08:23 83 08/26/21 08:11 94 100 08/26/21 08:00 98.4 F 80 18 106/67 98 08/26/21 04:54 99.0 F 98 122/70 97 08/26/21 03:00 98.9 F 104 H 16 98/56 98 08/26/21 01:50 99.1 F 99 17 90/54 99 08/25/21 22:48 78 18 148/85 97 08/25/21 20:00 99 17 08/25/21 18:24 98.9 F 99 18 124/80 97 08/25/21 13:20 98.0 F 113 H 20 94/73 99 Intake and Output 08/25/21 08/26/21 08/26/21 22:59 06:59 14:59 Other: Voiding Method External Catheter # Voids 1 # Bowel Movements 0 Weight 84 kg Poor historian NAD Lungs even and no increased respirations HR Irrreg Abdomen soft Ext no edema Results CBC & Chem 7: 08/26/21 07:49 08/26/21 07:49 Labs: Abnormal Lab Results - Last 24 Hours (Table) 08/25/21 08/25/21 08/25/21 Range/Units 13:50 13:50 13:50 RBC 3.67 L (3.80-5.40) m/uL Hgb 10.8 L (11.4-16.0) gm/dL Hct 32.4 L (34.0-46.0) % RDW 15.6 H (11.5-15.5) % Plt Count 20 L (150-450) k/uL Lymphocytes # 0.8 L (1.0-4.8) k/uL D-Dimer 2.46 H (<0.60) mg/L FEU Chloride (98-107) mmol/L Carbon Dioxide 21 L (22-30) mmol/L BUN 95 H (7-17) mg/dL Creatinine 2.95 H (0.52-1.04) mg/dL Glucose 262 H (74-99) mg/dL Plasma Lactic Acid [place] (0.7-2.0) mmol/L Calcium (8.4-10.2) mg/dL Total Bilirubin 2.7 H (0.2-1.3) mg/dL AST 85 H (14-36) U/L Troponin I (0.000-0.034) ng/mL Total Protein 6.1 L (6.3-8.2) g/dL Albumin 3.3 L (3.5-5.0) g/dL Urine Appearance (Clear) Urine Protein (Negative) Urine Glucose (UA) (Negative) Urine Blood (Negative) Urine Bilirubin (Negative) Ur Leukocyte Esterase (Negative) Urine RBC (0-5) /hpf Urine WBC (0-5) /hpf Urine Bacteria (None) /hpf Urine Mucus (None) /hpf 08/25/21 08/25/21 08/25/21 Range/Units 13:50 13:50 15:05 RBC (3.80-5.40) m/uL Hgb (11.4-16.0) gm/dL Hct (34.0-46.0) % RDW (11.5-15.5) % Plt Count (150-450) k/uL Lymphocytes # (1.0-4.8) k/uL D-Dimer (<0.60) mg/L FEU Chloride (98-107) mmol/L Carbon Dioxide (22-30) mmol/L BUN (7-17) mg/dL Creatinine (0.52-1.04) mg/dL Glucose (74-99) mg/dL Plasma Lactic Acid [place] 2.7 H* (0.7-2.0) mmol/L Calcium (8.4-10.2) mg/dL Total Bilirubin (0.2-1.3) mg/dL AST (14-36) U/L Troponin I 0.431 H* 0.372 H* (0.000-0.034) ng/mL Total Protein (6.3-8.2) g/dL Albumin (3.5-5.0) g/dL Urine Appearance (Clear) Urine Protein (Negative) Urine Glucose (UA) (Negative) Urine Blood (Negative) Urine Bilirubin (Negative) Ur Leukocyte Esterase (Negative) Urine RBC (0-5) /hpf Urine WBC (0-5) /hpf Urine Bacteria (None) /hpf Urine Mucus (None) /hpf 08/25/21 08/25/21 08/26/21 Range/Units 16:45 19:09 07:49 RBC (3.80-5.40) m/uL Hgb (11.4-16.0) gm/dL Hct (34.0-46.0) % RDW (11.5-15.5) % Plt Count (150-450) k/uL Lymphocytes # (1.0-4.8) k/uL D-Dimer (<0.60) mg/L FEU Chloride 108 H (98-107) mmol/L Carbon Dioxide 21 L (22-30) mmol/L BUN 108 H* (7-17) mg/dL Creatinine 3.73 H (0.52-1.04) mg/dL Glucose 180 H (74-99) mg/dL Plasma Lactic Acid [place] (0.7-2.0) mmol/L Calcium 7.7 L (8.4-10.2) mg/dL Total Bilirubin 1.9 H (0.2-1.3) mg/dL AST 51 H (14-36) U/L Troponin I 0.331 H* (0.000-0.034) ng/mL Total Protein 5.1 L (6.3-8.2) g/dL Albumin 2.6 L (3.5-5.0) g/dL Urine Appearance Turbid H (Clear) Urine Protein 4+ H (Negative) Urine Glucose (UA) 1+ H (Negative) Urine Blood Large H (Negative) Urine Bilirubin 1+ H (Negative) Ur Leukocyte Esterase Small H (Negative) Urine RBC 78 H (0-5) /hpf Urine WBC 34 H (0-5) /hpf Urine Bacteria Occasional H (None) /hpf Urine Mucus Rare H (None) /hpf 08/26/21 Range/Units 07:49 RBC 2.86 L (3.80-5.40) m/uL Hgb 8.6 L D (11.4-16.0) gm/dL Hct 25.2 L (34.0-46.0) % RDW 16.1 H (11.5-15.5) % Plt Count 20 L (150-450) k/uL Lymphocytes # (1.0-4.8) k/uL D-Dimer (<0.60) mg/L FEU Chloride (98-107) mmol/L Carbon Dioxide (22-30) mmol/L BUN (7-17) mg/dL Creatinine (0.52-1.04) mg/dL Glucose (74-99) mg/dL Plasma Lactic Acid [place] (0.7-2.0) mmol/L Calcium (8.4-10.2) mg/dL Total Bilirubin (0.2-1.3) mg/dL AST (14-36) U/L Troponin I (0.000-0.034) ng/mL Total Protein (6.3-8.2) g/dL Albumin (3.5-5.0) g/dL Urine Appearance (Clear) Urine Protein (Negative) Urine Glucose (UA) (Negative) Urine Blood (Negative) Urine Bilirubin (Negative) Ur Leukocyte Esterase (Negative) Urine RBC (0-5) /hpf Urine WBC (0-5) /hpf Urine Bacteria (None) /hpf Urine Mucus (None) /hpf Microbiology - Last 24 Hours (Table) 08/25/21 16:45 Urine Culture - Preliminary Urine,Voided Comments: Ultrasound of kidey CT scan - chest: report reviewed Assessment and Plan (1) Thrombocytopenia Narrative/Plan: Full work-up ordered Full infectious work-up and DIC ordered timing for HIT antibodies does not coicide, not considered in differential More likely related to infectious/inflammatory with potential underlying MDS or other bone marrow picture. ITP is also considered. Discuss with primary team need of asa with platelets 20K If signs of bleeding transfuse, or if less than 10K Current Visit: Yes Status: Acute Code(s): D69.6 - THROMBOCYTOPENIA, UNSPECIFIED SNOMED Code(s): 987880888 (2) Normocytic anemia Current Visit: Yes Status: Acute Code(s): D64.9 - ANEMIA, UNSPECIFIED SNOMED Code(s): 786755011 (3) Acute kidney injury Current Visit: No Status: Acute Code(s): N17.9 - ACUTE KIDNEY FAILURE, UNSPECIFIED SNOMED Code(s): 53410085
[2021-08-26] MEDS: SODIUM CHLORIDE 0.9% 1,000 ML IV SCH (20:01)
[2021-08-26] MEDS ORDERED: BACLOFEN 10 MG TAB PO PRN (20:07)
[2021-08-26] MEDS ORDERED: ACETAMINOPHEN TAB 325 MG TAB PO PRN (20:08)
[2021-08-26] MEDS: ATORVASTATIN 40 MG TAB PO SCH (20:16)
[2021-08-27] MEDS: SODIUM CHLORIDE 0.9% 1,000 ML IV SCH ×2 (01:01→13:44)
[2021-08-27] MEDS: HEPARIN SOD,PORK IN 0.45% NACL 25,000 UNIT in 0.45% NACL 1 250ML.BAG IV SCH (04:35)
[2021-08-27] MEDS: IPRATROPIUM 0.5 MG/2.5 ML NEBU INHALATION SCH ×3 (08:44→18:01)
[2021-08-27 09:32] LABS: Glucose,Whole Blood 200 mg/dL (70-110)
--- NOTE | 2021-08-27 09:48 | CA ---
Transthoracic Echo Report Name: Samantha Priest Age: 65 Gender: F : 1955 Exam Date: 08/26/2021 08:00 Exam Location: [facility] Ht (in): 65 Wt (lb): 185 Ordering Physician: Shelby Linares MD Attending/Referring Phys: Automotive Mechanical Engineer Joanna Pantoja RDCS Procedure CPT: Indications: mi? Cardiac Hx: Technical Quality: Fair Contrast 1: Total Dose (mL): Contrast 2: Total Dose (mL): MEASUREMENTS (Male / Female) Normal Values 2D ECHO LV Diastolic Diameter PLAX 4.6 cm 4.2 - 5.9 / 3.9 - 5.3 cm LV Systolic Diameter PLAX 3.1 cm IVS Diastolic Thickness 1.1 cm 0.6 - 1.0 / 0.6 - 0.9 cm LVPW Diastolic Thickness 1.5 cm 0.6 - 1.0 / 0.6 - 0.9 cm LV Relative Wall Thickness 0.6 LA Volume 49.0 cm??? 18 - 58 / 22 - 52 cm??? M-MODE MV E Point Septal Separation 0.6 cm DOPPLER MV Area PHT 2.1 cm??? Mitral E Point Velocity 55.4 cm/s Mitral A Point Velocity 88.6 cm/s Mitral E to A Ratio 0.6 MV Deceleration Time 366.6 ms MV E' Velocity 6.4 cm/s Mitral E to MV E' Ratio 8.6 FINDINGS Left Ventricle Normal Left ventricular size, mild wall thickness, systolic function with no obvious regional wall motion abnormalities.left ventricular ejection fraction is estimated at 50-55%. Right Ventricle Normal right ventricular size and function. Right Atrium Normal right atrial size. Left Atrium Left atrial size at the upper limits of normal. Mitral Valve Mild mitral regurgitation. Aortic Valve Trileaflet aortic valve. Trace aortic regurgitation. Tricuspid Valve Structurally normal tricuspid valve. Mild tricuspid regurgitation. Pulmonic Valve Pulmonic valve not well visualized. Pericardium Normal pericardium. Aorta Normal size aortic root and proximal ascending aorta. CONCLUSIONS Normal LV size and systolic function Mild mitral regurgitation Previewed by: Dr. Sheldon Iqbal MD (Electronically Signed) Final Date: 27 August 2021 09:47
--- NOTE | 2021-08-27 10:16 | P.PN ---
Subjective Patient is seen in follow-up for acute kidney injury. Morning labs pending. Denies chest pain or shortness of breath. On 2 L nasal cannula. Oral intake poor. Unable to place Peña catheter due to anatomy. Vital signs are stable. General: Awake. No acute distress. HEENT: Head exam is unremarkable. LUNGS: Breath sounds decreased. HEART: Rate and Rhythm are regular. ABDOMEN: Soft, no distention. EXTREMITITES: No edema. Objective - Vital Signs Vital signs: Vital Signs Temp 98.1 F 08/27/21 08:00 Pulse 72 08/27/21 08:58 Resp 16 08/27/21 08:00 BP 121/56 08/27/21 08:00 Pulse Ox 99 08/27/21 08:00 FiO2 Intake & Output 08/26/21 08/27/21 08/27/21 18:59 06:59 18:59 Intake Total 720 Output Total 200 Balance 720 -200 Intake: Oral 720 Output: Urine 200 Other: Voiding Method External Catheter # Voids 1 # Bowel Movements 1 1 - Labs CBC & Chem 7: 08/26/21 07:49 08/26/21 07:49 Labs: Abnormal Lab Results - Last 24 Hours (Table) 08/25/21 08/26/21 08/26/21 Range/Units 13:50 07:49 07:49 Haptoglobin <10.0 L (31.2-198.0) mg/dL POC Glucose (mg/dL) (70-110) mg/dL % Saturation 46.41 H (12.00-45.00) Ferritin 678.0 H (10.0-291.0) ng/mL Lactate Dehydrogenase 1708 H (120-246) U/L Total Protein (PEP) 5.4 L (6.2-8.2) g/dL Triglycerides 158.00 H (0.00-149.00) mg/dL IgG (700.0-1600.0) mg/dL Rheumatoid Factor (0-15) IU/mL 08/26/21 08/26/21 08/27/21 Range/Units 07:49 07:49 09:29 Haptoglobin (31.2-198.0) mg/dL POC Glucose (mg/dL) 200 H (70-110) mg/dL % Saturation (12.00-45.00) Ferritin (10.0-291.0) ng/mL Lactate Dehydrogenase (120-246) U/L Total Protein (PEP) (6.2-8.2) g/dL Triglycerides (0.00-149.00) mg/dL IgG 699.0 L (700.0-1600.0) mg/dL Rheumatoid Factor 128 H (0-15) IU/mL Microbiology - Last 24 Hours (Table) 08/25/21 19:09 Blood Culture - Preliminary Blood No Growth after 24 hours 08/25/21 16:45 Urine Culture - Final Urine,Voided Assessment and Plan Plan: Assessment: 1. Acute kidney injury secondary to ATN secondary to hypotension and further worsened with the use of lisinopril. Granular casts on UA suggestive of ATN. Creatinine was 2.95 on admission and up to 3.73 yesterday. No hydronephrosis noted on kidney ultrasound. Also rule out HUS/TTP as patient is noted to be anemic and thrombocytopenic. Creatinine in October 2020 was 0.6. LDH and haptoglobin low. Hematology following. 2. Metabolic acidosis secondary to acute kidney injury. 3. Diabetes. Plan: Maintain IV fluids. Strict I's and O's. Continue to hold antihypertensives. Follow-up serologies. Negative so far. Follow-up UPC. No schistocytes noted on CBC. Continue to monitor renal function and urine output. Iron replete. EF preserved. Check [id number] activity.
[2021-08-27 10:40] LABS: Albumin 2.7 g/dL (3.5-5.0); Calcium 7.3 mg/dL (8.4-10.2); Total Bilirubin 1.1 mg/dL (0.2-1.3); Total Protein 5.2 g/dL (6.3-8.2)
[2021-08-27 10:47] LABS: Anisocytosis Slight; Basophils % (A) 1 %; Eosinophils # (A) 0.2 k/uL (0-0.7); Eosinophils % (A) 3 %; HCT 26.8 % (34.0-46.0); HGB 8.6 gm/dL (11.4-16.0); Hypochromasia Slight; Lymphocytes # (A) 0.9 k/uL (1.0-4.8); Lymphocytes % (A) 12 %; MCH 29.2 pg (25.0-35.0); MCHC 32.2 g/dL (31.0-37.0); MCV 90.7 fL (80.0-100.0); Mean Platelet Volume 9.7; Monocytes # (A) 0.4 k/uL (0-1.0); Monocytes % (A) 5 %; Neutrophils # (A) 6.2 k/uL (1.3-7.7); Neutrophils % (A) 78 %; Poikilocytosis Slight; RBC 2.95 m/uL (3.80-5.40); RDW 16.8 % (11.5-15.5); WBC 7.9 k/uL (3.8-10.6)
[2021-08-27] MEDS ORDERED: SODIUM CHLORIDE 0.9% 1,000 ML IV ONE (10:58)
[2021-08-27 11:07] VITALS: TEMP 97.8
[2021-08-27 11:49] LABS: Glucose,Whole Blood 199 mg/dL (70-110)
--- NOTE | 2021-08-27 11:58 | CT ---
EXAMINATION TYPE: CT brain wo con DATE OF EXAM: 08/27/2021 COMPARISON: None available HISTORY: Altered mental status. CT DLP: 1188.4 mGycm Automated exposure control for dose reduction was used. TECHNIQUE: CT scan of the brain is performed without IV contrast administration. FINDINGS: Brain volume loss changes. Bilateral cerebral white matter hypodensities, likely representing chronic microvascular ischemic changes. Scattered arterial atherosclerotic calcifications. No acute intracranial hemorrhage. No gross acute cortical infarct. No midline shift or herniation. Un remarkable basal cisterns, sella and CP angles. No gross space-occupying lesion, vasogenic edema or m ass effect. Unremarkable orbits. Clear visualized paranasal sinuses and left mastoid air cells. Hypopneumatized r ight inferior mastoid air cells. Osteopenia. IMPRESSION: No acute intracranial abnormality or gross space-occupying lesion by this nonenhanced CT scan. Chroni c and incidental findings as described above.
[2021-08-27 12:05] LABS: Platelet Count 33 k/uL (150-450)
[2021-08-27 12:15] LABS: Polychromasia Present
[2021-08-27 12:29] LABS: Mean Platelet Volume 9.7
[2021-08-27 12:34] LABS: Platelet Count 34 k/uL (150-450)
[2021-08-27 12:41] LABS: Erythrocyte Sedimentation Rate 84 mm/hr (0-20)
--- NOTE | 2021-08-27 12:51 | P.PN ---
Subjective Progress Note Date: 08/27/21 Principal diagnosis: Weakness. Pulmonary consult dated 08/26/2021. 65-year-old female who we are asked to see for COPD. On talking to the patient, who is not a particularly good historian, the patient states and her states, that she was admitted for mental status changes, and profound weakness. She is not really having any shortness of breath although it was documented so, in the ER annmarie. She apparently does carry with her a diagnosis of COPD. Her primary care physician is Dr. Gerard. She apparently has seen a lung doctor in the past but does not remember who was that she saw. She only uses Spiriva for her COPD. She does not use oxygen at home. The patient apparently has a history of angina, COPD, diabetes, GERD, hyperlipidemia, hypertension, sleep a pnea, diabetic neuropathy, arthritis, varicose veins, and gastric ulcer. White count 7.1, hemoglobin 8.6, hematocrit 25.2, and platelet count 20,000. Sodium 137, potassium 4.2, chlorides 108, CO2 21, BUN 108, and creatinine 3.73. Troponins were 0.372 and 0.331. Urine specimen is suspicious for urinary tract infection. Chest x-ray shows no acute process, changes of COPD, a possible 1.4 cm nodularity in the left hilum. Perfusion lung scan was low probability for pulmonary embolism. Chest CT showed a borderline aneurysm of the ascending aorta, and no lung mass. Progress note dated 08/27/2021. 65-year-old female seen in consultation yesterday for COPD. She has a history of angina, COPD, diabetes, GERD, hyperlipidemia, hypertension, sleep apnea, diabetic neuropathy, arthritis, varicose veins, and gastric ulcer. She was admitted primarily because of weakness, and mental status changes. Her COPD is stable. White count 7.9, hemoglobin 8.6, hematocrit 26.8, and platelet count 33,000. Sodium 138, potassium 4, chlorides 110, CO2 19, anion gap 9, BUN 117, and creatinine 4.80. According to the nurse, the patient may be starting on hemodialysis. Brain CT was negative. Doppler of the lower extremities were negative for DVT. Objective - Vital Signs Vital signs: Vital Signs Temp 97.8 F 08/27/21 11:05 Pulse 76 08/27/21 11:49 Resp 14 08/27/21 11:05 BP 108/60 08/27/21 11:05 Pulse Ox 94 L 08/27/21 11:05 FiO2 Intake & Output 08/26/21 08/27/21 08/27/21 18:59 06:59 18:59 Intake Total 720 Output Total 200 Balance 720 -200 Intake: Oral 720 Output: Urine 200 Other: Voiding Method External Catheter External Catheter # Voids 1 # Bowel Movements 1 1 - Exam No acute distress, oriented 3. 2 L saturations 100%. The patient is very lethargic and somnolent today. HEENT examination is grossly unremarkable. Neck supple. Full range of motion. No adenopathy thyromegaly or neck vein distention. Cardiovascular examination reveals regular rhythm rate. S1-S2 normal. No S3 or S4. No discernible murmur noted. Heart rate 76 bpm. Lungs reveal clear breath sounds. Breath sounds are equal bilaterally. No adventitious lung sounds including wheezes rhonchi or crackles. Abdomen soft bowel sounds are heard. No masses or tenderness. Extremities are intact. No cyanosis clubbing or edema. Skin is without rash or lesion. Neurologic examination is brief but nonfocal. - Labs CBC & Chem 7: 08/27/21 12:03 08/27/21 09:41 Labs: Abnormal Lab Results - Last 24 Hours (Table) 08/25/21 08/26/21 08/26/21 Range/Units 13:50 07:49 07:49 RBC (3.80-5.40) m/uL Hgb (11.4-16.0) gm/dL Hct (34.0-46.0) % RDW (11.5-15.5) % Plt Count (150-450) k/uL Lymphocytes # (1.0-4.8) k/uL Pathologist Review ESR (0-20) mm/hr Haptoglobin <10.0 L (31.2-198.0) mg/dL Chloride (98-107) mmol/L Carbon Dioxide (22-30) mmol/L BUN (7-17) mg/dL Creatinine (0.52-1.04) mg/dL Glucose (74-99) mg/dL POC Glucose (mg/dL) (70-110) mg/dL Calcium (8.4-10.2) mg/dL % Saturation 46.41 H (12.00-45.00) Ferritin 678.0 H (10.0-291.0) ng/mL Lactate Dehydrogenase 1708 H (120-246) U/L Total Protein (6.3-8.2) g/dL Total Protein (PEP) 5.4 L (6.2-8.2) g/dL Albumin (3.5-5.0) g/dL Triglycerides 158.00 H (0.00-149.00) mg/dL IgG (700.0-1600.0) mg/dL Rheumatoid Factor (0-15) IU/mL 08/26/21 08/26/21 08/27/21 Range/Units 07:49 07:49 09:29 RBC (3.80-5.40) m/uL Hgb (11.4-16.0) gm/dL Hct (34.0-46.0) % RDW (11.5-15.5) % Plt Count (150-450) k/uL Lymphocytes # (1.0-4.8) k/uL Pathologist Review ESR (0-20) mm/hr Haptoglobin (31.2-198.0) mg/dL Chloride (98-107) mmol/L Carbon Dioxide (22-30) mmol/L BUN (7-17) mg/dL Creatinine (0.52-1.04) mg/dL Glucose (74-99) mg/dL POC Glucose (mg/dL) 200 H (70-110) mg/dL Calcium (8.4-10.2) mg/dL % Saturation (12.00-45.00) Ferritin (10.0-291.0) ng/mL Lactate Dehydrogenase (120-246) U/L Total Protein (6.3-8.2) g/dL Total Protein (PEP) (6.2-8.2) g/dL Albumin (3.5-5.0) g/dL Triglycerides (0.00-149.00) mg/dL IgG 699.0 L (700.0-1600.0) mg/dL Rheumatoid Factor 128 H (0-15) IU/mL 08/27/21 08/27/21 08/27/21 Range/Units 09:41 09:41 11:47 RBC 2.95 L (3.80-5.40) m/uL Hgb 8.6 L (11.4-16.0) gm/dL Hct 26.8 L (34.0-46.0) % RDW 16.8 H (11.5-15.5) % Plt Count 33 L D (150-450) k/uL Lymphocytes # 0.9 L (1.0-4.8) k/uL Pathologist Review See comment A ESR 84 H (0-20) mm/hr Haptoglobin (31.2-198.0) mg/dL Chloride 110 H (98-107) mmol/L Carbon Dioxide 19 L (22-30) mmol/L BUN 117 H* (7-17) mg/dL Creatinine 4.80 H (0.52-1.04) mg/dL Glucose 180 H (74-99) mg/dL POC Glucose (mg/dL) 199 H (70-110) mg/dL Calcium 7.3 L (8.4-10.2) mg/dL % Saturation (12.00-45.00) Ferritin (10.0-291.0) ng/mL Lactate Dehydrogenase (120-246) U/L Total Protein 5.2 L (6.3-8.2) g/dL Total Protein (PEP) (6.2-8.2) g/dL Albumin 2.7 L (3.5-5.0) g/dL Triglycerides (0.00-149.00) mg/dL IgG (700.0-1600.0) mg/dL Rheumatoid Factor (0-15) IU/mL 08/27/21 Range/Units 12:03 RBC (3.80-5.40) m/uL Hgb (11.4-16.0) gm/dL Hct (34.0-46.0) % RDW (11.5-15.5) % Plt Count 34 L (150-450) k/uL Lymphocytes # (1.0-4.8) k/uL Pathologist Review ESR (0-20) mm/hr Haptoglobin (31.2-198.0) mg/dL Chloride (98-107) mmol/L Carbon Dioxide (22-30) mmol/L BUN (7-17) mg/dL Creatinine (0.52-1.04) mg/dL Glucose (74-99) mg/dL POC Glucose (mg/dL) (70-110) mg/dL Calcium (8.4-10.2) mg/dL % Saturation (12.00-45.00) Ferritin (10.0-291.0) ng/mL Lactate Dehydrogenase (120-246) U/L Total Protein (6.3-8.2) g/dL Total Protein (PEP) (6.2-8.2) g/dL Albumin (3.5-5.0) g/dL Triglycerides (0.00-149.00) mg/dL IgG (700.0-1600.0) mg/dL Rheumatoid Factor (0-15) IU/mL Microbiology - Last 24 Hours (Table) 08/25/21 19:09 Blood Culture - Preliminary Blood No Growth after 24 hours 08/25/21 16:45 Urine Culture - Final Urine,Voided Assessment and Plan Assessment: Profound weakness, and mental status changes, currently being evaluated by the primary service. Mental status changes may relate to worsening renal function. Computed tomography scan of the brain was negative. COPD, which appears to be stable, and relatively mild. Acute kidney injury, secondary to ATN/hypotension. Non-anion gap metabolic acidosis. History of diabetes mellitus with diabetic neuropathy. History of sleep apnea syndrome, currently not on CPAP. History of gastroesophageal reflux disease. History of hypertension. History of hyperlipidemia. History of mild pancreatitis. History of arthritis. Prior history of Chinedu-en-Y bariatric surgery for obesity. Plan: Plan dated 08/26/2021. The patient is seen and evaluated. The patient's COPD appears to be relatively mild, and stable. The patient can be restarted on Spiriva, or use her home Spiriva if she wishes. No additional recommendations are made. The patient was really not admitted so much for COPD, rather, mental status changes, and weakness. The patient has developed acute kidney injury, secondary to ATN. She has been seen by nephrology. The patient is not having any respiratory difficulty or distress at this time. We'll follow as needed. Plan dated 08/27/2021. Patient appears to be relatively stable from the pulmonary standpoint. No additional recommendations are made. We will follow the patient moving forward, only as needed. The patient appears to be stable on HER-2 liters of oxygen. The patient may be a candidate in the near future for hemodialysis. That is currently being evaluated by nephrology. Time with Patient: Less than 30
--- NOTE | 2021-08-27 13:01 | P.PN ---
Subjective Progress Note Date: 08/27/21 HISTORY OF PRESENT ILLNESS: This is a 65-year-old female with a past medical history significant for hypertension, hyperlipidemia, and diabetes. Patient follows in the office with Dr. Aguilar. We have been asked to see the patient in consultation for abnormal troponins. Patient examined at the bedside. Patient is somewhat confused this morning. Her significant other is at the bedside. Patient presented to the hospital with a chief complaint of weakness and confusion over the past 2-3 days. She reports some dizziness. She denied any chest pain or shortness of breath. The patient was found to be in acute renal failure. She was also found to have thrombocytopenia with a platelet count of 20. The patient denies a history of acute renal failure or thrombocytopenia. * EKG reveals sinus mechanism with no signs of acute ischemia * Chest xray negative for acute process. Correlate for COPD. 1.4 cm prominent nodularity left hilum. * Laboratory data: WBC 7.1. Hemoglobin 8.6. Platelet count 20. Sodium 137. Potassium 4.2. BUN 108. Creatinine 3.73. Troponin 0.431. 0.372. 0.331. * VQ scan: Low probability of PE * CT chest: Borderline aneurysm of the ascending aorta. No evidence of hilar mass. Lungs are clear. No evidence of acute lung disease. * Current home cardiac medications include Lipitor 40 mg at night and lisinopril 2.5 mg daily * Most recent echocardiogram obtained in January 2019 revealed ejection fraction 60-65%, mild aortic regurgitation, mild tricuspid regurgitation * Cardiac catheterization history: January 2019 revealing mild non-obstructive coronary artery disease and normal left ventricular end-diastolic pressure. Medical management was recommended. 08/27/2021 Patient examined this morning at the bedside. Patient significant other present. Patient remains lethargic at the time of examination. Patient moans when she is asked questions but is unable to communicate properly. Her mentation does appear worse than yesterday. Vital signs are stable. Blood pressure 108/60. Heart rate is in the 70s. Telemetry reveals sinus mechanism. Echocardiogram completed revealing ejection fraction 50-55% with mild MR and mild TR PHYSICAL EXAM: VITAL SIGNS: Reviewed. GENERAL: Well-developed in no acute distress. HEENT: Head is normocephalic. Pupils are equal, round. Sclerae anicteric. Mucous membranes of the mouth are moist. Neck supple. No JVD or thyromegaly LUNGS: Respirations even and unlabored. Lungs essentially clear to auscultation bilaterally. HEART: Regular rate and rhythm. S1 and S2 heard. ABDOMEN: Soft. Nondistended. Nontender. EXTREMITIES: Normal range of motion. No clubbing or cyanosis. Peripheral pulses intact. No lower extremity edema NEUROLOGIC: Awake and alert. Oriented x 3. ASSESSMENT: Generalized weakness Confusion/altered mental status Acute renal failure Abnormal troponins, secondary to acute renal failure, no evidence of acute coronary syndrome Thrombocytopenia, etiology unclear Hypertension Hyperlipidemia Diabetes Mild non-obstructive coronary artery disease, per cardiac catheterization in 2019 PLAN: Continue current cardiac medications Continue to hold lisinopril secondary to acute renal failure CT brain ordered. Await results. From a cardiac standpoint, patient is stable. We will follow on an as needed basis. Please call with questions or concerns. Nurse practitioner note has been reviewed by physician. Signing provider agrees with the documented findings, assessment, and plan of care. Objective - Vital Signs Vital signs: Vital Signs Temp 97.8 F 08/27/21 11:05 Pulse 76 08/27/21 11:49 Resp 14 08/27/21 11:05 BP 108/60 08/27/21 11:05 Pulse Ox 94 L 08/27/21 11:05 FiO2 Intake & Output 08/26/21 08/27/21 08/27/21 18:59 06:59 18:59 Intake Total 720 Output Total 200 Balance 720 -200 Intake: Oral 720 Output: Urine 200 Other: Voiding Method External Catheter External Catheter # Voids 1 # Bowel Movements 1 1 - Labs CBC & Chem 7: 08/27/21 12:03 08/27/21 09:41 Labs: Abnormal Lab Results - Last 24 Hours (Table) 08/25/21 08/26/21 08/26/21 Range/Units 13:50 07:49 07:49 RBC (3.80-5.40) m/uL Hgb (11.4-16.0) gm/dL Hct (34.0-46.0) % RDW (11.5-15.5) % Plt Count (150-450) k/uL Lymphocytes # (1.0-4.8) k/uL Pathologist Review ESR (0-20) mm/hr Haptoglobin <10.0 L (31.2-198.0) mg/dL Chloride (98-107) mmol/L Carbon Dioxide (22-30) mmol/L BUN (7-17) mg/dL Creatinine (0.52-1.04) mg/dL Glucose (74-99) mg/dL POC Glucose (mg/dL) (70-110) mg/dL Calcium (8.4-10.2) mg/dL % Saturation 46.41 H (12.00-45.00) Ferritin 678.0 H (10.0-291.0) ng/mL Lactate Dehydrogenase 1708 H (120-246) U/L Total Protein (6.3-8.2) g/dL Total Protein (PEP) 5.4 L (6.2-8.2) g/dL Albumin (3.5-5.0) g/dL Triglycerides 158.00 H (0.00-149.00) mg/dL IgG (700.0-1600.0) mg/dL Rheumatoid Factor (0-15) IU/mL 08/26/21 08/26/21 08/27/21 Range/Units 07:49 07:49 09:29 RBC (3.80-5.40) m/uL Hgb (11.4-16.0) gm/dL Hct (34.0-46.0) % RDW (11.5-15.5) % Plt Count (150-450) k/uL Lymphocytes # (1.0-4.8) k/uL Pathologist Review ESR (0-20) mm/hr Haptoglobin (31.2-198.0) mg/dL Chloride (98-107) mmol/L Carbon Dioxide (22-30) mmol/L BUN (7-17) mg/dL Creatinine (0.52-1.04) mg/dL Glucose (74-99) mg/dL POC Glucose (mg/dL) 200 H (70-110) mg/dL Calcium (8.4-10.2) mg/dL % Saturation (12.00-45.00) Ferritin (10.0-291.0) ng/mL Lactate Dehydrogenase (120-246) U/L Total Protein (6.3-8.2) g/dL Total Protein (PEP) (6.2-8.2) g/dL Albumin (3.5-5.0) g/dL Triglycerides (0.00-149.00) mg/dL IgG 699.0 L (700.0-1600.0) mg/dL Rheumatoid Factor 128 H (0-15) IU/mL 08/27/21 08/27/21 08/27/21 Range/Units 09:41 09:41 11:47 RBC 2.95 L (3.80-5.40) m/uL Hgb 8.6 L (11.4-16.0) gm/dL Hct 26.8 L (34.0-46.0) % RDW 16.8 H (11.5-15.5) % Plt Count 33 L D (150-450) k/uL Lymphocytes # 0.9 L (1.0-4.8) k/uL Pathologist Review See comment A ESR 84 H (0-20) mm/hr Haptoglobin (31.2-198.0) mg/dL Chloride 110 H (98-107) mmol/L Carbon Dioxide 19 L (22-30) mmol/L BUN 117 H* (7-17) mg/dL Creatinine 4.80 H (0.52-1.04) mg/dL Glucose 180 H (74-99) mg/dL POC Glucose (mg/dL) 199 H (70-110) mg/dL Calcium 7.3 L (8.4-10.2) mg/dL % Saturation (12.00-45.00) Ferritin (10.0-291.0) ng/mL Lactate Dehydrogenase (120-246) U/L Total Protein 5.2 L (6.3-8.2) g/dL Total Protein (PEP) (6.2-8.2) g/dL Albumin 2.7 L (3.5-5.0) g/dL Triglycerides (0.00-149.00) mg/dL IgG (700.0-1600.0) mg/dL Rheumatoid Factor (0-15) IU/mL 08/27/21 Range/Units 12:03 RBC (3.80-5.40) m/uL Hgb (11.4-16.0) gm/dL Hct (34.0-46.0) % RDW (11.5-15.5) % Plt Count 34 L (150-450) k/uL Lymphocytes # (1.0-4.8) k/uL Pathologist Review ESR (0-20) mm/hr Haptoglobin (31.2-198.0) mg/dL Chloride (98-107) mmol/L Carbon Dioxide (22-30) mmol/L BUN (7-17) mg/dL Creatinine (0.52-1.04) mg/dL Glucose (74-99) mg/dL POC Glucose (mg/dL) (70-110) mg/dL Calcium (8.4-10.2) mg/dL % Saturation (12.00-45.00) Ferritin (10.0-291.0) ng/mL Lactate Dehydrogenase (120-246) U/L Total Protein (6.3-8.2) g/dL Total Protein (PEP) (6.2-8.2) g/dL Albumin (3.5-5.0) g/dL Triglycerides (0.00-149.00) mg/dL IgG (700.0-1600.0) mg/dL Rheumatoid Factor (0-15) IU/mL Microbiology - Last 24 Hours (Table) 08/25/21 19:09 Blood Culture - Preliminary Blood No Growth after 24 hours 08/25/21 16:45 Urine Culture - Final Urine,Voided
--- NOTE | 2021-08-27 13:17 | P.PN ---
Subjective Progress Note Date: 08/27/21 Principal diagnosis: Patient renal functon worsening, Pathology CORONA Hung has been sent Pathology review without mention of definitive schistocytes however clinical appearance is concerning without evidence of underlying infectious cause. Fragmented cells mentioned - ??Schistos. Given the concerning picture for TTP and urgent situation, LDH 1700, BUN over 110 and Creatinine rising over 4, and the length of time it will take for Corona Hung it is felt to set up transfer to tertiary care for probable need of plasmapheresis I did discuss slide with Dr. 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 - TTP in primary differential will arrange for transfer ana Objective - Vital Signs Vital signs: Vital Signs Temp 97.8 F 08/27/21 11:05 Pulse 76 08/27/21 11:49 Resp 14 08/27/21 11:05 BP 108/60 08/27/21 11:05 Pulse Ox 94 L 08/27/21 11:05 FiO2 Intake & Output 08/26/21 08/27/21 08/27/21 18:59 06:59 18:59 Intake Total 720 Output Total 200 Balance 720 -200 Intake: Oral 720 Output: Urine 200 Other: Voiding Method External Catheter External Catheter # Voids 1 # Bowel Movements 1 1 - Exam Poor historian NAD Lungs even and no increased respirations HR Irrreg Abdomen soft Ext no edema - Labs CBC & Chem 7: 08/27/21 12:03 08/27/21 09:41 Labs: Abnormal Lab Results - Last 24 Hours (Table) 08/25/21 08/26/21 08/26/21 Range/Units 13:50 07:49 07:49 RBC (3.80-5.40) m/uL Hgb (11.4-16.0) gm/dL Hct (34.0-46.0) % RDW (11.5-15.5) % Plt Count (150-450) k/uL Lymphocytes # (1.0-4.8) k/uL Pathologist Review ESR (0-20) mm/hr Haptoglobin <10.0 L (31.2-198.0) mg/dL Chloride (98-107) mmol/L Carbon Dioxide (22-30) mmol/L BUN (7-17) mg/dL Creatinine (0.52-1.04) mg/dL Glucose (74-99) mg/dL POC Glucose (mg/dL) (70-110) mg/dL Calcium (8.4-10.2) mg/dL % Saturation 46.41 H (12.00-45.00) Ferritin 678.0 H (10.0-291.0) ng/mL Lactate Dehydrogenase 1708 H (120-246) U/L Total Protein (6.3-8.2) g/dL Total Protein (PEP) 5.4 L (6.2-8.2) g/dL Albumin (3.5-5.0) g/dL Triglycerides 158.00 H (0.00-149.00) mg/dL IgG (700.0-1600.0) mg/dL Rheumatoid Factor (0-15) IU/mL 08/26/21 08/26/21 08/27/21 Range/Units 07:49 07:49 09:29 RBC (3.80-5.40) m/uL Hgb (11.4-16.0) gm/dL Hct (34.0-46.0) % RDW (11.5-15.5) % Plt Count (150-450) k/uL Lymphocytes # (1.0-4.8) k/uL Pathologist Review ESR (0-20) mm/hr Haptoglobin (31.2-198.0) mg/dL Chloride (98-107) mmol/L Carbon Dioxide (22-30) mmol/L BUN (7-17) mg/dL Creatinine (0.52-1.04) mg/dL Glucose (74-99) mg/dL POC Glucose (mg/dL) 200 H (70-110) mg/dL Calcium (8.4-10.2) mg/dL % Saturation (12.00-45.00) Ferritin (10.0-291.0) ng/mL Lactate Dehydrogenase (120-246) U/L Total Protein (6.3-8.2) g/dL Total Protein (PEP) (6.2-8.2) g/dL Albumin (3.5-5.0) g/dL Triglycerides (0.00-149.00) mg/dL IgG 699.0 L (700.0-1600.0) mg/dL Rheumatoid Factor 128 H (0-15) IU/mL 08/27/21 08/27/21 08/27/21 Range/Units 09:41 09:41 11:47 RBC 2.95 L (3.80-5.40) m/uL Hgb 8.6 L (11.4-16.0) gm/dL Hct 26.8 L (34.0-46.0) % RDW 16.8 H (11.5-15.5) % Plt Count 33 L D (150-450) k/uL Lymphocytes # 0.9 L (1.0-4.8) k/uL Pathologist Review See comment A ESR 84 H (0-20) mm/hr Haptoglobin (31.2-198.0) mg/dL Chloride 110 H (98-107) mmol/L Carbon Dioxide 19 L (22-30) mmol/L BUN 117 H* (7-17) mg/dL Creatinine 4.80 H (0.52-1.04) mg/dL Glucose 180 H (74-99) mg/dL POC Glucose (mg/dL) 199 H (70-110) mg/dL Calcium 7.3 L (8.4-10.2) mg/dL % Saturation (12.00-45.00) Ferritin (10.0-291.0) ng/mL Lactate Dehydrogenase (120-246) U/L Total Protein 5.2 L (6.3-8.2) g/dL Total Protein (PEP) (6.2-8.2) g/dL Albumin 2.7 L (3.5-5.0) g/dL Triglycerides (0.00-149.00) mg/dL IgG (700.0-1600.0) mg/dL Rheumatoid Factor (0-15) IU/mL 08/27/21 Range/Units 12:03 RBC (3.80-5.40) m/uL Hgb (11.4-16.0) gm/dL Hct (34.0-46.0) % RDW (11.5-15.5) % Plt Count 34 L (150-450) k/uL Lymphocytes # (1.0-4.8) k/uL Pathologist Review ESR (0-20) mm/hr Haptoglobin (31.2-198.0) mg/dL Chloride (98-107) mmol/L Carbon Dioxide (22-30) mmol/L BUN (7-17) mg/dL Creatinine (0.52-1.04) mg/dL Glucose (74-99) mg/dL POC Glucose (mg/dL) (70-110) mg/dL Calcium (8.4-10.2) mg/dL % Saturation (12.00-45.00) Ferritin (10.0-291.0) ng/mL Lactate Dehydrogenase (120-246) U/L Total Protein (6.3-8.2) g/dL Total Protein (PEP) (6.2-8.2) g/dL Albumin (3.5-5.0) g/dL Triglycerides (0.00-149.00) mg/dL IgG (700.0-1600.0) mg/dL Rheumatoid Factor (0-15) IU/mL Microbiology - Last 24 Hours (Table) 08/25/21 19:09 Blood Culture - Preliminary Blood No Growth after 24 hours 08/25/21 16:45 Urine Culture - Final Urine,Voided Assessment and Plan (1) Thrombocytopenia Narrative/Plan: Full work-up ordered Full infectious work-up and DIC ordered timing for HIT antibodies does not coicide, not considered in differential More likely related to infectious/inflammatory with potential underlying MDS or other bone marrow picture. ITP is also considered. Discuss with primary team need of asa with platelets 20K If signs of bleeding transfuse, or if less than 10K Jeter 13 sent Clinical concern despite no seen Schistos on smear Current Visit: Yes Status: Acute Code(s): D69.6 - THROMBOCYTOPENIA, UNSPECIFIED SNOMED Code(s): 268002124 (2) Normocytic anemia Current Visit: Yes Status: Acute Code(s): D64.9 - ANEMIA, UNSPECIFIED SNOMED Code(s): 332172628 (3) Acute kidney injury Narrative/Plan: worsening. Current Visit: No Status: Acute Code(s): N17.9 - ACUTE KIDNEY FAILURE, UNSPECIFIED SNOMED Code(s): 83179244
[2021-08-27] MEDS: ASPIRIN 325 MG TAB PO SCH (13:42)
[2021-08-27] MEDS: METOPROLOL TARTRATE 25 MG TAB PO SCH (13:43)
[2021-08-27] MEDS: PANTOPRAZOLE 40 MG TABLET PO SCH (13:44)
--- NOTE | 2021-08-27 14:00 | P.CNNES ---
History of Present Illness Consult date: 08/27/21 Requesting physician: Shelby Linares Reason for Consult: decreased responsiveness History of Present Illness: This is a 65-year-old woman with medical history of diabetes type 2, peripheral neuropathy, gastric ulcer, COPD, hypertension, hyperlipidemia, sleep apnea, mild pancreatitis who is admitted for altered mental status and profound weakness. Neurology is consulted for altered mental status. According to the nurse she stated that she was responding better yesterday compared to today and today she is more confused. Patient has acute kidney injury and her most recent BUN is 117 and is trending up as well as the creatinine is trending up most recent is 4.80. Urology is consulted and nephrology is consulted. Patient is having episodes of blood pressure in the 90s systolic and diastolic in the 50s Patient has been afebrile so far Patient has AST of 51 ALT of 15. TSH is 1.710. Serum folate is 19.20 Her troponin is slightly elevated Urinalysis is leukocyte esterase small, urine white blood cells 34 Rheumatoid factor is 128 a days negative. [id number] less than 1.0. Hepatitis panel is negative so far. CT of the head is reported as no acute intracranial abnormality or gross space- occupying lesion by this nonenhanced computed tomography scan. I personally reviewed the CT of the head and I feel the patient has moderate amount of bilateral frontal atrophy more compared to her age. Review of Systems Review of system is limited. Positive and negative as per HPI Past Medical History Past Medical History: Chest Pain / Angina, COPD, Diabetes Mellitus, GERD/Reflux, Hyperlipidemia, Hypertension, Osteoarthritis (OA), Skin Disorder, Sleep Apnea/CPAP/BIPAP Additional Past Medical History / Comment(s): Diagnosed with mild pancreatitis on 01/22/19, NIDDM type II, neuropathy bilateral hands/legs/feet, arthritis in multiple joints, bilateral carpal tunnel syndrome, gastric ulcer, ADRIANA-no longer uses device since wt loss, varicose veins, venous dermatitis. History of Any Multi-Drug Resistant Organisms: None Reported Past Surgical History: Adenoidectomy, Appendectomy, Bariatric Surgery, Cholecystectomy, Orthopedic Surgery, Tonsillectomy Additional Past Surgical History / Comment(s): 01/13/15 Lap laila en Y gastric bypass with lysis of adhesions, EGDs, colonoscopies, bilateral knee arthroscopy, bilateral knee replacements, D&C Past Anesthesia/Blood Transfusion Reactions: No Reported Reaction Additional Past Anesthesia/Blood Transfusion Reaction / Comment(s): Pt is slow to wake from anesthesia. She has received blood in past without reaction. Past Psychological History: Anxiety, Depression Additional Psychological History / Comment(s): Pt resides with her SO. She uses a cane and walker if needed. 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 Smoking Status: Former smoker Past Alcohol Use History: None Reported Additional Past Alcohol Use History / Comment(s): Pt started smoking in 1969 and quit smoking in 2009 Past Drug Use History: None Reported - Past Family History Mother Family Medical History: Cancer, Deep Vein Thrombosis (DVT) Additional Family Medical History / Comment(s): Mother had uterine cancer. Father Family Medical History: Congestive Heart Failure (CHF), Sleep Apnea/CPAP/BIPAP Additional Family Medical History / Comment(s): Father was an alcoholic. He of CHF at the age of 48yrs. Medications and Allergies Home Medications Medication Instructions Recorded Confirmed Type DULoxetine HCL [Cymbalta] 60 mg PO BID 09/10/13 08/25/21 History lisinopriL [Zestril] 2.5 mg PO DAILY 01/17/19 08/25/21 History traZODone HCL [Desyrel] 100 mg PO HS 01/17/19 08/25/21 History HYDROcodone/APAP 10-325MG [[place] 1 tab PO TID PRN 01/24/19 08/25/21 History 10-325] Omeprazole 20 mg PO DAILY 01/24/19 08/25/21 History Atorvastatin Calcium [Lipitor] 40 mg PO HS 08/25/21 08/25/21 History Fluticasone Nasal [place] [Flonase 1 spray EA NOSTRIL DAILY PRN 08/25/21 08/25/21 History Nasal [place]] QUEtiapine [SEROquel] 25 mg PO HS 08/25/21 08/25/21 History Tiotropium 2.5 Mcg/Puff [Spiriva 2 puff INHALATION RT-DAILY 08/25/21 08/25/21 History Respimat 2.5 Mcg] metFORMIN HCL 1,000 mg PO BID 08/25/21 08/25/21 History Allergies Allergy/AdvReac Type Severity Reaction Status Date / Time Penicillins Allergy Severe Anaphylaxis Verified 08/25/21 15:16 TRACE METALS Allergy itching,rachna Uncoded 08/25/21 13:24 h Physical Examination - Vital Signs Vital Signs: Vital Signs Temp Pulse Pulse Resp BP Pulse Ox 08/27/21 11:49 76 08/27/21 11:43 72 08/27/21 11:05 97.8 F 71 14 108/60 94 L 08/27/21 08:58 72 08/27/21 08:44 60 08/27/21 08:00 98.1 F 75 16 121/56 99 08/27/21 04:00 98.2 F 68 18 98/55 99 08/26/21 23:41 97.8 F 70 18 123/80 99 08/26/21 20:21 80 08/26/21 20:09 80 08/26/21 20:00 98.8 F 83 18 119/64 100 08/26/21 16:11 79 08/26/21 16:01 86 08/26/21 16:00 81 18 117/72 95 08/26/21 15:47 95 08/26/21 14:00 18 Intake and Output 08/26/21 08/27/21 08/27/21 22:59 06:59 14:59 Intake Total 240 Output Total 200 Balance 40 Intake: Oral 240 Output: Urine 200 Other: Voiding Method External Catheter # Voids 1 # Bowel Movements 1 GENERAL: The patient is lying in bed and does not appear in acute distress. CHEST: The heart rate is regular rate rhythm. No murmurs to auscultation. LUNG: Clear to auscultation bilaterally no wheezing noted throughout. Not labored breathing. ABDOMEN/GI: Bowel sounds present in all 4 quadrants. No tenderness to palpation throughout. NEUROLOGICAL: Limited because of her condition/cooperation. Higher mental function: The patient is severely drowsy and is briefly awake to voice. Is oriented to self. She is able to follow minimal simple commands. Could not assess language in detail because of condition. Cranial nerves: The pupils are round, equal and reactive to light. No facial weakness. No dyarthria from limited examination. Motor: The strength is hard to assess. But lifting upper extremities above gravity spontaneously. Is wiggling her toes. Has increase tone in bilateral uppers. Cerebellum: Unable to assess. Sensation: Unable to assess light touch. Reflexes (right/left): 1+ throughout. Plantars are upgoing bilaterally without stimulation. Results - Laboratory Findings CBC and BMP: 08/27/21 12:03 08/27/21 09:41 Abnormal Lab Findings: Abnormal Labs 08/25/21 08/25/21 08/25/21 13:50 13:50 13:50 RBC 3.67 L Hgb 10.8 L Hct 32.4 L RDW 15.6 H Plt Count 20 L Lymphocytes # 0.8 L Pathologist Review ESR Haptoglobin D-Dimer 2.46 H Chloride Carbon Dioxide 21 L BUN 95 H Creatinine 2.95 H Glucose 262 H POC Glucose (mg/dL) Plasma Lactic Acid Bradly Calcium % Saturation Ferritin Total Bilirubin 2.7 H AST 85 H Lactate Dehydrogenase Troponin I Total Protein 6.1 L Total Protein (PEP) Albumin 3.3 L Triglycerides Urine Appearance Urine Protein Urine Glucose (UA) Urine Blood Urine Bilirubin Ur Leukocyte Esterase Urine RBC Urine WBC Urine Bacteria Urine Mucus IgG Rheumatoid Factor 08/25/21 08/25/21 08/25/21 13:50 13:50 13:50 RBC Hgb Hct RDW Plt Count Lymphocytes # Pathologist Review ESR Haptoglobin <10.0 L D-Dimer Chloride Carbon Dioxide BUN Creatinine Glucose POC Glucose (mg/dL) Plasma Lactic Acid Bradly 2.7 H* Calcium % Saturation Ferritin Total Bilirubin AST Lactate Dehydrogenase Troponin I 0.431 H* Total Protein Total Protein (PEP) 5.4 L Albumin Triglycerides Urine Appearance Urine Protein Urine Glucose (UA) Urine Blood Urine Bilirubin Ur Leukocyte Esterase Urine RBC Urine WBC Urine Bacteria Urine Mucus IgG Rheumatoid Factor 08/25/21 08/25/21 08/25/21 15:05 16:45 19:09 RBC Hgb Hct RDW Plt Count Lymphocytes # Pathologist Review ESR Haptoglobin D-Dimer Chloride Carbon Dioxide BUN Creatinine Glucose POC Glucose (mg/dL) Plasma Lactic Acid Bradly Calcium % Saturation Ferritin Total Bilirubin AST Lactate Dehydrogenase Troponin I 0.372 H* 0.331 H* Total Protein Total Protein (PEP) Albumin Triglycerides Urine Appearance Turbid H Urine Protein 4+ H Urine Glucose (UA) 1+ H Urine Blood Large H Urine Bilirubin 1+ H Ur Leukocyte Esterase Small H Urine RBC 78 H Urine WBC 34 H Urine Bacteria Occasional H Urine Mucus Rare H IgG Rheumatoid Factor 08/26/21 08/26/21 08/26/21 07:49 07:49 07:49 RBC 2.86 L Hgb 8.6 L D Hct 25.2 L RDW 16.1 H Plt Count 20 L Lymphocytes # Pathologist Review ESR Haptoglobin D-Dimer Chloride 108 H Carbon Dioxide 21 L BUN 108 H* Creatinine 3.73 H Glucose 180 H POC Glucose (mg/dL) Plasma Lactic Acid Bradly Calcium 7.7 L % Saturation 46.41 H Ferritin 678.0 H Total Bilirubin 1.9 H AST 51 H Lactate Dehydrogenase 1708 H Troponin I Total Protein 5.1 L Total Protein (PEP) Albumin 2.6 L Triglycerides 158.00 H Urine Appearance Urine Protein Urine Glucose (UA) Urine Blood Urine Bilirubin Ur Leukocyte Esterase Urine RBC Urine WBC Urine Bacteria Urine Mucus IgG Rheumatoid Factor 08/26/21 08/26/21 08/27/21 07:49 07:49 09:29 RBC Hgb Hct RDW Plt Count Lymphocytes # Pathologist Review ESR Haptoglobin D-Dimer Chloride Carbon Dioxide BUN Creatinine Glucose POC Glucose (mg/dL) 200 H Plasma Lactic Acid Bradly Calcium % Saturation Ferritin Total Bilirubin AST Lactate Dehydrogenase Troponin I Total Protein Total Protein (PEP) Albumin Triglycerides Urine Appearance Urine Protein Urine Glucose (UA) Urine Blood Urine Bilirubin Ur Leukocyte Esterase Urine RBC Urine WBC Urine Bacteria Urine Mucus IgG 699.0 L Rheumatoid Factor 128 H 08/27/21 08/27/21 08/27/21 09:41 09:41 11:47 RBC 2.95 L Hgb 8.6 L Hct 26.8 L RDW 16.8 H Plt Count 33 L D Lymphocytes # 0.9 L Pathologist Review See comment A ESR 84 H Haptoglobin D-Dimer Chloride 110 H Carbon Dioxide 19 L BUN 117 H* Creatinine 4.80 H Glucose 180 H POC Glucose (mg/dL) 199 H Plasma Lactic Acid Bradly Calcium 7.3 L % Saturation Ferritin Total Bilirubin AST Lactate Dehydrogenase Troponin I Total Protein 5.2 L Total Protein (PEP) Albumin 2.7 L Triglycerides Urine Appearance Urine Protein Urine Glucose (UA) Urine Blood Urine Bilirubin Ur Leukocyte Esterase Urine RBC Urine WBC Urine Bacteria Urine Mucus IgG Rheumatoid Factor 08/27/21 12:03 RBC Hgb Hct RDW Plt Count 34 L Lymphocytes # Pathologist Review ESR Haptoglobin D-Dimer Chloride Carbon Dioxide BUN Creatinine Glucose POC Glucose (mg/dL) Plasma Lactic Acid Bradly Calcium % Saturation Ferritin Total Bilirubin AST Lactate Dehydrogenase Troponin I Total Protein Total Protein (PEP) Albumin Triglycerides Urine Appearance Urine Protein Urine Glucose (UA) Urine Blood Urine Bilirubin Ur Leukocyte Esterase Urine RBC Urine WBC Urine Bacteria Urine Mucus IgG Rheumatoid Factor Assessment and Plan Assessment: Altered mental status due to predominantly due to uremic encephalopathy Hypotensive episode Slightly elevated troponin Type 2 diabetes Diabetic neuropathy Gastric ulcer COPD History of hypertension but has hypotensive episode during his hospital visit Hyperlipidemia Sleep apnea Mild pancreatitis Plan: I ordered an EEG. I'll not start the patient on an antiepileptic drug unless there is epileptiform discharges or seizure on EEG I ordered ammonia level, vitamin B12, CK level and ionized calcium If the patient continues to be confused recommend MRI of the brain without contrast Every 4 hours neuro checks Nephrology is consulted Urology is also consult for bartlett placement. Please avoid any further hypotensive episode. We'll defer the rest of the medical management to primary team. Thank you for the consultation. The plan is discussed with the nurse. Power Ramires M.D. Neuro-Hospitalist Time with Patient: Greater than 30
--- NOTE | 2021-08-27 15:21 | P.PN ---
Subjective Progress Note Date: 08/27/21 This is a 65-year-old female who was recently admitted with acute renal failure possible multifactorial and being closely monitored. Multiple medical consultations including hematology, nephrology, cardiology and pulmonary following. Patient with worsening kidney functions today and increased confusion and altered mental status and increased lethargy. Platelets today are 34 and hemoglobin is 8.6, WBC 7.9. Sodium is 138 with a potassium of 4.0, BUN is 117 and creatinine is now 4.8 and nephrology discussing possible renal replacement. Discussed with hematology who discussed with pathologist and there are fragmented cells noted on the RBCs with severe thrombocytopenia with concern for schistocytes and most likely TTP and will require emergent plasmapheresis. Per nursing staff multiple times for indwelling Peña catheter to be placed and unsuccessful and consulted urology for assistance. Given patient's increased confusion and altered mental status CT brain was done which was negative for any acute process and neurology was consulted. Review of systems: Unable to obtain given patient's mentation Active Medications Acetaminophen (Acetaminophen Tab 325 Mg Tab) 325 mg PO Q6HR PRN PRN Reason: Fever and/ or Mild Pain Last Admin: 08/26/21 20:15 Dose: 325 mg Aspirin (Aspirin 325 Mg Tab) 325 mg PO DAILY [facility] Last Admin: 08/27/21 13:42 Dose: Not Given Atorvastatin Calcium (Atorvastatin 40 Mg Tab) 40 mg PO HS [facility] Last Admin: 08/26/21 20:16 Dose: 40 mg Fluticasone Propionate (Fluticasone 50mcg/Stacy Nasal 16gm) 1 spray EA NOSTRIL DAILY PRN PRN Reason: Allergy Symptoms Furosemide (Furosemide 10 Mg/Ml 10 Ml Vial) 80 mg IV ONCE ONE Stop: 08/27/21 17:01 Sodium Chloride (Saline 0.9%) 1,000 mls @ 75 mls/hr IV .[id number] [facility] Last Admin: 08/27/21 13:44 Dose: 75 mls/hr Ipratropium Riva (Ipratropium 0.5 Mg/2.5 Ml Nebu) 0.5 mg INHALATION RT-QID [facility] Last Admin: 08/27/21 11:41 Dose: 0.5 mg Metoprolol Tartrate (Metoprolol Tartrate 25 Mg Tab) 25 mg PO BID [facility] Last Admin: 08/27/21 13:43 Dose: Not Given Nitroglycerin (Nitroglycerin Sl Tabs 0.4 Mg Tab) 0.4 mg SUBLINGUAL Q5M PRN PRN Reason: Chest Pain Pantoprazole Sodium (Pantoprazole 40 Mg Tablet) 40 mg PO DAILY [facility] Last Admin: 08/27/21 13:44 Dose: Not Given Physical exam: GENERAL: The patient is lethargic minimally arousable, confused, somnolent Well developed, well nourished. HEENT: Pupils are round and equally reacting to light. EOMI. no scleral icterus. No conjunctival pallor. Normocephalic, atraumatic. No pharyngeal erythema. No thyromegaly. Dry mucosal membranes CARDIOVASCULAR: S1 and S2 muffled PULMONARY: diminished breath sounds bilaterally with some scattered rhonchi noted. ABDOMEN: soft. Nontender on exam. obese. non-distended, normoactive bowel sounds. No palpable organomegaly. MUSCULOSKELETAL: No joint swelling or deformity. EXTREMITIES: No cyanosis, clubbing, or pedal edema. NEUROLOGICAL: Unable to completely assess as patient is somnolent and extremely lethargic. Diffuse weakness SKIN: No rashes. Assessment: Acute renal failure possibly multifactorial, rule out HUS Change in mental status, acute metabolic encephalopathy Fragmented cells and RBCs, possible TTP Severe thrombocytopenia Normocytic anemia Elevated troponin 0.431, most likely secondary to acute renal failure with no evidence of acute coronary syndrome Rule out sepsis Diabetes mellitus type 2 Chronic obstructive pulmonary disease Borderline aneurysm of the ascending aorta GI prophylaxis DVT prophylaxis Full code Plan: Recommend to continue with current medications and management with multiple medical consultations following. Patient is extremely critical and prognosis is extremely guarded and patient needs emergent transfer to tertiary treatment [facility] for plasmapheresis as there are noted fragmented cells and RBCs likely TTP. Discussed with hematology who agrees with emergent transfer as patient needs plasmapheresis this evening and this has not provided here. Platelets are 34 today and recommend transfusing as 10 or less. Hemoglobin stable currently at 8.6. Kidney functions worsening and multiple attempts at obtaining indwelling Peña catheter for strict intake and output unsuccessful and consulted urology for indwelling Peña catheter placement. Vascular surgery consulted for emergent dialysis catheter placement although given multiple placements and there are no platelets in the house most likely will not occur until tomorrow. Neurology also consulted given patient's increase in confusion and altered mental status and extreme somnolence. CT of the brain was negative for any acute process. Recommend close monitoring of labs and working on transfer to tertiary treatment center awaiting accepting facility. Due to multiple complex medical issues, prognosis is extremely guarded The impression and plan of care has been dictated by Tania Yuen, nurse practitioner as directed. MD Dhruv I have performed a history and examination and MDM of this patient, discussed the same with the dictator, and agree with the dictator's assessment and plan as written ,documented as a scribe. Based on total visit time, I have performed more than 50% of the visit. Any additional findings or plans will be noted. Objective - Vital Signs Vital signs: Vital Signs Temp 97.8 F 08/27/21 11:05 Pulse 76 08/27/21 11:49 Resp 14 08/27/21 11:05 BP 108/60 08/27/21 11:05 Pulse Ox 94 L 08/27/21 11:05 FiO2 Intake & Output 08/26/21 08/27/21 08/27/21 18:59 06:59 18:59 Intake Total 720 Output Total 200 Balance 720 -200 Intake: Oral 720 Output: Urine 200 Other: Voiding Method External Catheter Indwelling Catheter # Voids 1 # Bowel Movements 1 1 - Labs CBC & Chem 7: 08/27/21 12:03 08/27/21 09:41 Labs: Abnormal Lab Results - Last 24 Hours (Table) 08/25/21 08/26/21 08/26/21 Range/Units 13:50 07:49 07:49 RBC (3.80-5.40) m/uL Hgb (11.4-16.0) gm/dL Hct (34.0-46.0) % RDW (11.5-15.5) % Plt Count (150-450) k/uL Lymphocytes # (1.0-4.8) k/uL Pathologist Review ESR (0-20) mm/hr Haptoglobin <10.0 L (31.2-198.0) mg/dL Chloride (98-107) mmol/L Carbon Dioxide (22-30) mmol/L BUN (7-17) mg/dL Creatinine (0.52-1.04) mg/dL Glucose (74-99) mg/dL POC Glucose (mg/dL) (70-110) mg/dL Calcium (8.4-10.2) mg/dL Lactate Dehydrogenase 1708 H (120-246) U/L Total Protein (6.3-8.2) g/dL Total Protein (PEP) 5.4 L (6.2-8.2) g/dL Albumin (3.5-5.0) g/dL Triglycerides 158.00 H (0.00-149.00) mg/dL IgG (700.0-1600.0) mg/dL Rheumatoid Factor (0-15) IU/mL 08/26/21 08/26/21 08/27/21 Range/Units 07:49 07:49 09:29 RBC (3.80-5.40) m/uL Hgb (11.4-16.0) gm/dL Hct (34.0-46.0) % RDW (11.5-15.5) % Plt Count (150-450) k/uL Lymphocytes # (1.0-4.8) k/uL Pathologist Review ESR (0-20) mm/hr Haptoglobin (31.2-198.0) mg/dL Chloride (98-107) mmol/L Carbon Dioxide (22-30) mmol/L BUN (7-17) mg/dL Creatinine (0.52-1.04) mg/dL Glucose (74-99) mg/dL POC Glucose (mg/dL) 200 H (70-110) mg/dL Calcium (8.4-10.2) mg/dL Lactate Dehydrogenase (120-246) U/L Total Protein (6.3-8.2) g/dL Total Protein (PEP) (6.2-8.2) g/dL Albumin (3.5-5.0) g/dL Triglycerides (0.00-149.00) mg/dL IgG 699.0 L (700.0-1600.0) mg/dL Rheumatoid Factor 128 H (0-15) IU/mL 08/27/21 08/27/21 08/27/21 Range/Units 09:41 09:41 11:47 RBC 2.95 L (3.80-5.40) m/uL Hgb 8.6 L (11.4-16.0) gm/dL Hct 26.8 L (34.0-46.0) % RDW 16.8 H (11.5-15.5) % Plt Count 33 L D (150-450) k/uL Lymphocytes # 0.9 L (1.0-4.8) k/uL Pathologist Review See comment A ESR 84 H (0-20) mm/hr Haptoglobin (31.2-198.0) mg/dL Chloride 110 H (98-107) mmol/L Carbon Dioxide 19 L (22-30) mmol/L BUN 117 H* (7-17) mg/dL Creatinine 4.80 H (0.52-1.04) mg/dL Glucose 180 H (74-99) mg/dL POC Glucose (mg/dL) 199 H (70-110) mg/dL Calcium 7.3 L (8.4-10.2) mg/dL Lactate Dehydrogenase (120-246) U/L Total Protein 5.2 L (6.3-8.2) g/dL Total Protein (PEP) (6.2-8.2) g/dL Albumin 2.7 L (3.5-5.0) g/dL Triglycerides (0.00-149.00) mg/dL IgG (700.0-1600.0) mg/dL Rheumatoid Factor (0-15) IU/mL 08/27/21 Range/Units 12:03 RBC (3.80-5.40) m/uL Hgb (11.4-16.0) gm/dL Hct (34.0-46.0) % RDW (11.5-15.5) % Plt Count 34 L (150-450) k/uL Lymphocytes # (1.0-4.8) k/uL Pathologist Review ESR (0-20) mm/hr Haptoglobin (31.2-198.0) mg/dL Chloride (98-107) mmol/L Carbon Dioxide (22-30) mmol/L BUN (7-17) mg/dL Creatinine (0.52-1.04) mg/dL Glucose (74-99) mg/dL POC Glucose (mg/dL) (70-110) mg/dL Calcium (8.4-10.2) mg/dL Lactate Dehydrogenase (120-246) U/L Total Protein (6.3-8.2) g/dL Total Protein (PEP) (6.2-8.2) g/dL Albumin (3.5-5.0) g/dL Triglycerides (0.00-149.00) mg/dL IgG (700.0-1600.0) mg/dL Rheumatoid Factor (0-15) IU/mL Microbiology - Last 24 Hours (Table) 08/25/21 19:09 Blood Culture - Preliminary Blood No Growth after 24 hours 08/25/21 16:45 Urine Culture - Final Urine,Voided
[2021-08-27 15:35] LABS: Ionized Calcium 4.6 mg/dL (4.5-5.3)
--- NOTE | 2021-08-27 15:38 | P.DS ---
Providers Date of admission: 08/25/21 14:43 Expected date of discharge: 08/27/21 Attending physician: Shelby Linares Consults: 08/25/21 14:43 Consult Physician Urgent Consulting Provider: Foster Ramires Consult Reason/Comments: Dyspnea Do you want consulting provider notified?: Yes Consult Physician Urgent Consulting Provider: [facility] Consult Reason/Comments: Elevated troponin Do you want consulting provider notified?: Yes 08/25/21 14:51 Consult Physician Urgent Consulting Provider: Ethan Banuelos Consult Reason/Comments: thrombocytopenia, plt 20, elev. dimer, elevated trop Do you want consulting provider notified?: Yes 08/25/21 14:52 Consult Physician Urgent Consulting Provider: Chilango Asencio Consult Reason/Comments: ARF, SOB, HUS?? Do you want consulting provider notified?: Yes 08/27/21 10:04 Consult Physician Routine Consulting Provider: Celestino Pepper Consult Reason/Comments: unable to place urinary catheter Do you want consulting provider notified?: Yes 08/27/21 10:58 Consult Physician Stat Consulting Provider: Mendel Ryan Consult Reason/Comments: STAT dialysis catheter Do you want consulting provider notified?: Yes 08/27/21 12:24 Consult Physician Routine Consulting Provider: Power Ramires Consult Reason/Comments: DECREASED RESPONSIVENESS Do you want consulting provider notified?: Already Contacted Primary care physician: Mamadou Gerard Hospital Course: Final diagnosis Acute renal failure possibly multifactorial, rule out HUS Change in mental status, acute metabolic encephalopathy Fragmented cells noted on smear, possible schistocytes, possible TTP Severe thrombocytopenia Normocytic anemia Elevated troponin 0.431, most likely secondary to acute renal failure with no evidence of acute coronary syndrome Rule out sepsis Diabetes mellitus type 2 Chronic obstructive pulmonary disease Borderline aneurysm of the ascending aorta GI prophylaxis DVT prophylaxis, SCDs given patient's severe thrombocytopenia Full code Discharge disposition Patient is being discharged in a stable condition with guarded prognosis to [facility] tertiary treatment [place] for emergent plasmapheresis. Patient was accepted by medical ICU rn renal Dr. Hinkle and report was given to Dr. Cortes. Currently awaiting bed assignment and disc with all imaging available for transfer. Total time taken is greater than 35 minutes Hospital course This is a 65-year-old female who was recently admitted with acute renal failure possible multifactorial and being closely monitored. Multiple medical consultations including hematology, nephrology, cardiology and pulmonary following. Patient with worsening kidney functions today and increased confusion and altered mental status and increased lethargy. Platelets today are 34 and hemoglobin is 8.6, WBC 7.9. Sodium is 138 with a potassium of 4.0, BUN is 117 and creatinine is now 4.8 and nephrology discussing possible renal replacement. Discussed with hematology who discussed with pathologist and there are fragmented cells noted on the RBCs with severe thrombocytopenia with concern for schistocytes and most likely TTP and will require emergent plasmapheresis. Per nursing staff multiple times for indwelling Peña catheter to be placed and unsuccessful and consulted urology for assistance. Given patient's increased confusion and altered mental status CT brain was done which was negative for any acute process and neurology following. Discussed case with [facility] MICU fellow Dr. Cortes with accepting physician Dr. Hinkle requiring emergent transfer for plasmapheresis. Patient will also be requiring emergent dialysis as kidney functions are worsening. Platelets currently at 34 and awaiting transfusion although no platelets in house. [facility] follow recommending intubation to protect the airway given patient's mentation and worsening status as patient is full code. Will discuss with pulmonary rn renal here about transfer to the ICU and possible intubation while awaiting a bed assignment at [facility]. Physical exam: Gen: This is a 65-year-old female who is obtunded and somnolent, minimally is arousable, ill-appearing, obese. Temp is 97.8 Yeison height axillary, pulse is 71, respirations are 14, blood pressure 108/60, oxygen saturation is 94% on 2 L via nasal cannula HEENT: Head is atraumatic, normocephalic. Pupils equal, round. Sclerae is anicteric. Oral mucosa is dry NECK: Supple. No JVD. No lymphadenopathy. No thyromegaly. LUNGS: Diminished breath sounds bilaterally with some scattered rhonchi and crackles noted at the bases. No intercostal retractions. HEART: S1, S2 are muffled ABDOMEN: Soft. Obese Bowel sounds are present. No masses. No tenderness. EXTREMITIES: No pedal edema. No calf tenderness. NEUROLOGICAL: Unable to completely assess as patient is somnolent and obtunded will arouse to painful stimuli although immediately falls asleep Please refer to medication reconciliation sheet for a list of medications. The impression and plan of care has been dictated by Taina Yuen, Nurse Practitioner as directed. Dr. Vijay MD I have performed a history and examination and MDM of this patient, discussed the same with the dictator, and agree with the dictator's assessment and plan as written ,documented as a scribe. Based on total visit time, I have performed more than 50% of the visit. Patient Condition at Discharge: Critical Plan - Discharge Summary Discharge Rx Participant: No New Discharge Prescriptions: No Action DULoxetine HCL [Cymbalta] 60 mg PO BID traZODone HCL [Desyrel] 100 mg PO HS lisinopriL [Zestril] 2.5 mg PO DAILY HYDROcodone/APAP 10-325MG [Torrey 10-325] 1 tab PO TID PRN PRN Reason: Pain Omeprazole 20 mg PO DAILY Tiotropium 2.5 Mcg/Puff [Spiriva Respimat 2.5 Mcg] 2 puff INHALATION RT-DAILY QUEtiapine [SEROquel] 25 mg PO HS Atorvastatin Calcium [Lipitor] 40 mg PO HS metFORMIN HCL 1,000 mg PO BID Fluticasone Nasal [place] [Flonase Nasal [place]] 1 spray EA NOSTRIL DAILY PRN PRN Reason: Allergy Symptoms Discharge Medication List DULoxetine HCL [Cymbalta] 60 mg PO BID 09/10/13 [History] lisinopriL [Zestril] 2.5 mg PO DAILY 01/17/19 [History] traZODone HCL [Desyrel] 100 mg PO HS 01/17/19 [History] HYDROcodone/APAP 10-325MG [Torrey 10-325] 1 tab PO TID PRN 01/24/19 [History] Omeprazole 20 mg PO DAILY 01/24/19 [History] Atorvastatin Calcium [Lipitor] 40 mg PO HS 08/25/21 [History] Fluticasone Nasal [place] [Flonase Nasal [place]] 1 spray EA NOSTRIL DAILY PRN 08/25/21 [History] QUEtiapine [SEROquel] 25 mg PO HS 08/25/21 [History] Tiotropium 2.5 Mcg/Puff [Spiriva Respimat 2.5 Mcg] 2 puff INHALATION RT-DAILY 08/25/21 [History] metFORMIN HCL 1,000 mg PO BID 08/25/21 [History] Follow up Appointment(s)/Referral(s): Mamadou Gerard DO [Primary Care Provider] - 1-2 days
[2021-08-27 15:58] LABS: Glucose,Whole Blood 152 mg/dL (70-110)
--- NOTE | 2021-08-27 16:26 | EEG ---
ELECTROENCEPHALOGRAM REPORT DATE OF SERVICE: 08/27/2021 CLINICAL HISTORY: This is a 65-year-old woman who has altered mental status. The video EEG is obtained to evaluate for seizure epileptiform activity. RELEVANT MEDICATION: This patient is not on any antiepileptic drugs. EEG TYPE: A routine 21 channel EEG is performed with video using the 10/20 electrode placement system. DESCRIPTION: Wakefulness is obtained. During awake state, the background consists of low to moderate voltage of 6-7 hertz activity that is well modulated, well sustained, intermixed with delta activity. There is no physiological stage 2 sleep architecture. There is no focal slowing. Interictal and ictal is none. ACTIVATION PROCEDURE: Photic stimulation and hyperventilation are not performed. CLINICAL INTERPRETATION: This is an abnormal routine EEG. The background slowing is suggestive of moderate encephalopathy, likely due to toxic metabolic etiology. Otherwise, there is no focal slowing, epileptiform discharge or seizure on the EEG. Clinical correlation is recommended MMSJ / BRITTANYN: [id number] /
[2021-08-27 16:53] LABS: Albumin 2.79 g/dL (3.80-4.90); Gamma Globulin 0.73 g/dL (0.70-1.50)
[2021-08-27] MEDS ORDERED: propofoL 100 ML IV ONE (16:56)
[2021-08-27] MEDS ORDERED: FUROSEMIDE 10 MG/ML 10 ML VIAL IV ONE (17:00)
[2021-08-27 17:46] VITALS: BP 173/116; PULSE 86; RESP 12
--- NOTE | 2021-08-27 17:52 | P.GSCN ---
History of Present Illness Consult date: 08/27/21 Reason for Consult: Incomplete bladder emptying, inability to insert Peña catheter. Requesting physician: Taina Yuen History of present illness: The patient is a 65-year-old white female admitted with acute renal failure. She has been found to empty her bladder incompletely. A Peña catheter is desired to accurately monitor urine output. Attempts by the nursing staff to us to insert a Peña catheter have been unsuccessful. She is unable to provide urologic history. Her boyfriend indicates to me that she has been treated for recurrent UTIs. Review of Systems ROS unobtainable: due to mental status Past Medical History Past Medical History: Chest Pain / Angina, COPD, Diabetes Mellitus, GERD/Reflux, Hyperlipidemia, Hypertension, Osteoarthritis (OA), Skin Disorder, Sleep Apnea/CPAP/BIPAP Additional Past Medical History / Comment(s): Diagnosed with mild pancreatitis on 01/22/19, NIDDM type II, neuropathy bilateral hands/legs/feet, arthritis in multiple joints, bilateral carpal tunnel syndrome, gastric ulcer, ADRIANA-no longer uses device since wt loss, varicose veins, venous dermatitis. History of Any Multi-Drug Resistant Organisms: None Reported Past Surgical History: Adenoidectomy, Appendectomy, Bariatric Surgery, Cholecystectomy, Orthopedic Surgery, Tonsillectomy Additional Past Surgical History / Comment(s): 01/13/15 Lap laila en Y gastric bypass with lysis of adhesions, EGDs, colonoscopies, bilateral knee arthroscopy, bilateral knee replacements, D&C Past Anesthesia/Blood Transfusion Reactions: No Reported Reaction Additional Past Anesthesia/Blood Transfusion Reaction / Comm: Pt is slow to wake from anesthesia. She has received blood in past without reaction. Past Psychological History: Anxiety, Depression Additional Psychological History / Comment(s): Pt resides with her SO. She uses a cane and walker if needed. She has never had a grab driver's license- her SO takes her to [employer]. Smoking Status: Former smoker Past Alcohol Use History: None Reported Additional Past Alcohol Use History / Comment(s): Pt started smoking in 1969 and quit smoking in 2009 Past Drug Use History: None Reported - Past Family History Mother Family Medical History: Cancer, Deep Vein Thrombosis (DVT) Additional Family Medical History / Comment(s): Mother had uterine cancer. Father Family Medical History: Congestive Heart Failure (CHF), Sleep Apnea/CPAP/BIPAP Additional Family Medical History / Comment(s): Father was an alcoholic. He of CHF at the age of 48yrs. Medications and Allergies Home Medications Medication Instructions Recorded Confirmed Type DULoxetine HCL [Cymbalta] 60 mg PO BID 09/10/13 08/25/21 History lisinopriL [Zestril] 2.5 mg PO DAILY 01/17/19 08/25/21 History traZODone HCL [Desyrel] 100 mg PO HS 01/17/19 08/25/21 History HYDROcodone/APAP 10-325MG [[place] 1 tab PO TID PRN 01/24/19 08/25/21 History 10-325] Omeprazole 20 mg PO DAILY 01/24/19 08/25/21 History Atorvastatin Calcium [Lipitor] 40 mg PO HS 08/25/21 08/25/21 History Fluticasone Nasal [place] [Flonase 1 spray EA NOSTRIL DAILY PRN 08/25/21 08/25/21 History Nasal [place]] QUEtiapine [SEROquel] 25 mg PO HS 08/25/21 08/25/21 History Tiotropium 2.5 Mcg/Puff [Spiriva 2 puff INHALATION RT-DAILY 08/25/21 08/25/21 History Respimat 2.5 Mcg] metFORMIN HCL 1,000 mg PO BID 08/25/21 08/25/21 History Allergies Allergy/AdvReac Type Severity Reaction Status Date / Time Penicillins Allergy Severe Anaphylaxis Verified 08/25/21 15:16 TRACE METALS Allergy itching,rachna Uncoded 08/25/21 13:24 h Surgical - Exam Vital Signs Temp Pulse Resp BP Pulse Ox 98.0 F 113 H 20 94/73 99 08/25/21 13:20 08/25/21 13:20 08/25/21 13:20 08/25/21 13:20 08/25/21 13:20 - General well developed, well nourished, no distress - Respiratory normal respiratory effort - Abdomen Abdomen: soft, non tender, no guarding, no rigid, no rebound - Genitourinary other (The vulva appears normal. The introitus is narrowed.) Results - Labs 08/27/21 12:03 08/27/21 09:41 Abnormal Lab Results - Last 24 Hours (Table) 0608/26/21 08/26/21 Range/Units 13:50 07:49 07:49 RBC (3.80-5.40) m/uL Hgb (11.4-16.0) gm/dL Hct (34.0-46.0) % RDW (11.5-15.5) % Plt Count (150-450) k/uL Lymphocytes # (1.0-4.8) k/uL Pathologist Review ESR (0-20) mm/hr Chloride (98-107) mmol/L Carbon Dioxide (22-30) mmol/L BUN (7-17) mg/dL Creatinine (0.52-1.04) mg/dL Glucose (74-99) mg/dL POC Glucose (mg/dL) (70-110) mg/dL Calcium (8.4-10.2) mg/dL Total Protein (6.3-8.2) g/dL Albumin (3.5-5.0) g/dL Albumin (PEP) 2.79 L (3.80-4.90) g/dL Blgzj-5-Xihqyqagu 0.43 H (0.10-0.40) g/dL IgG 699.0 L (700.0-1600.0) mg/dL Rheumatoid Factor 128 H (0-15) IU/mL 08/27/21 08/27/21 08/27/21 Range/Units 09:29 09:41 09:41 RBC 2.95 L (3.80-5.40) m/uL Hgb 8.6 L (11.4-16.0) gm/dL Hct 26.8 L (34.0-46.0) % RDW 16.8 H (11.5-15.5) % Plt Count 33 L D (150-450) k/uL Lymphocytes # 0.9 L (1.0-4.8) k/uL Pathologist Review See comment A ESR 84 H (0-20) mm/hr Chloride 110 H (98-107) mmol/L Carbon Dioxide 19 L (22-30) mmol/L BUN 117 H* (7-17) mg/dL Creatinine 4.80 H (0.52-1.04) mg/dL Glucose 180 H (74-99) mg/dL POC Glucose (mg/dL) 200 H (70-110) mg/dL Calcium 7.3 L (8.4-10.2) mg/dL Total Protein 5.2 L (6.3-8.2) g/dL Albumin 2.7 L (3.5-5.0) g/dL Albumin (PEP) (3.80-4.90) g/dL Giycj-2-Hxrqiuxdr (0.10-0.40) g/dL IgG (700.0-1600.0) mg/dL Rheumatoid Factor (0-15) IU/mL 08/27/21 08/27/21 08/27/21 Range/Units 11:47 12:03 15:57 RBC (3.80-5.40) m/uL Hgb (11.4-16.0) gm/dL Hct (34.0-46.0) % RDW (11.5-15.5) % Plt Count 34 L (150-450) k/uL Lymphocytes # (1.0-4.8) k/uL Pathologist Review ESR (0-20) mm/hr Chloride (98-107) mmol/L Carbon Dioxide (22-30) mmol/L BUN (7-17) mg/dL Creatinine (0.52-1.04) mg/dL Glucose (74-99) mg/dL POC Glucose (mg/dL) 199 H 152 H (70-110) mg/dL Calcium (8.4-10.2) mg/dL Total Protein (6.3-8.2) g/dL Albumin (3.5-5.0) g/dL Albumin (PEP) (3.80-4.90) g/dL Ulujm-3-Ndujqwkph (0.10-0.40) g/dL IgG (700.0-1600.0) mg/dL Rheumatoid Factor (0-15) IU/mL Microbiology - Last 24 Hours (Table) 08/25/21 19:09 Blood Culture - Preliminary Blood No Growth after 24 hours 08/25/21 16:45 Urine Culture - Final Urine,Voided Diabetes panel 08/27/21 Range/Units 09:41 Sodium 138 (137-145) mmol/L Potassium 4.0 (3.5-5.1) mmol/L Chloride 110 H (98-107) mmol/L Carbon Dioxide 19 L (22-30) mmol/L BUN 117 H* (7-17) mg/dL Creatinine 4.80 H (0.52-1.04) mg/dL Glucose 180 H (74-99) mg/dL Calcium 7.3 L (8.4-10.2) mg/dL AST 35 (14-36) U/L ALT 14 (4-34) U/L Alkaline Phosphatase 106 (38-126) U/L Total Protein 5.2 L (6.3-8.2) g/dL Albumin 2.7 L (3.5-5.0) g/dL Thyroid panel 08/27/21 Range/Units 09:41 TSH 1.710 (0.465-4.680) mIU/L Calcium panel 08/27/21 08/27/21 Range/Units 09:41 14:49 Calcium 7.3 L (8.4-10.2) mg/dL Ionized Calcium Owen 4.6 (4.5-5.3) mg/dL Albumin 2.7 L (3.5-5.0) g/dL Pituitary panel 08/27/21 08/27/21 Range/Units 09:41 09:41 Sodium 138 (137-145) mmol/L Potassium 4.0 (3.5-5.1) mmol/L Chloride 110 H (98-107) mmol/L Carbon Dioxide 19 L (22-30) mmol/L BUN 117 H* (7-17) mg/dL Creatinine 4.80 H (0.52-1.04) mg/dL Glucose 180 H (74-99) mg/dL Calcium 7.3 L (8.4-10.2) mg/dL TSH 1.710 (0.465-4.680) mIU/L Adrenal panel 08/27/21 Range/Units 09:41 Sodium 138 (137-145) mmol/L Potassium 4.0 (3.5-5.1) mmol/L Chloride 110 H (98-107) mmol/L Carbon Dioxide 19 L (22-30) mmol/L BUN 117 H* (7-17) mg/dL Creatinine 4.80 H (0.52-1.04) mg/dL Glucose 180 H (74-99) mg/dL Calcium 7.3 L (8.4-10.2) mg/dL Total Bilirubin 1.1 (0.2-1.3) mg/dL AST 35 (14-36) U/L ALT 14 (4-34) U/L Alkaline Phosphatase 106 (38-126) U/L Total Protein 5.2 L (6.3-8.2) g/dL Albumin 2.7 L (3.5-5.0) g/dL Assessment and Plan (1) Incomplete bladder emptying Current Visit: Yes Status: Acute Code(s): R33.9 - RETENTION OF URINE, UNSPEC IFIED SNOMED Code(s): 769291617 (2) Feeling of incomplete bladder emptying Current Visit: Yes Status: Acute Code(s): R39.14 - FEELING OF INCOMPLETE BLADDER EMPTYING SNOMED Code(s): 584850519 Plan: Under sterile conditions, a 16-Cro[place] Peña catheter was placed. Difficulty was encountered due to the small size of the introitus. Only approximately 100 mL of urine drained, indicative that she was not in urinary retention. The Peña catheter may be removed when no longer medically needed. Please notify me if I can be of any further assistance.
--- NOTE | 2021-08-27 17:59 | XR ---
EXAMINATION TYPE: XR chest 1V portable DATE OF EXAM: 08/27/2021 5:28 PM COMPARISON: Chest radiographs from 06/25/2021 TECHNIQUE: XR chest 1V portable Frontal view of the chest. CLINICAL INDICATION:Female, 65 years old with history of Tube placement; FINDINGS: Lungs/Pleura: There is no evidence of pleural effusion, focal consolidation, or pneumothorax. Pulmonary vascularity: Unremarkable. Heart/mediastinum: Cardiomediastinal silhouette is prominent in size. Musculoskeletal: No acute osseous pathology. Other findings: None Lines/Tubes: Endotracheal tube with distal tip 4.8 cm above the cliff Nasogastric tube with its distal tip all project over the gastric lumen. The side port projects near the gastroesophageal junction. IMPRESSION: 1. Endotracheal in appropriate position. 2. Nasogastric tube side-port near the gastric esophageal junction. Consider advancement of 8 cm for placement.
[2021-08-27 18:48] LABS: Hepatitis B Surface AB- Quant 3.5 mIU/mL; Hepatitis B Surface Antibody Nonreactive (Nonreactive)
[2021-08-27 19:10] LABS: Hepatitis B Surface Antigen Nonreactive (Nonreactive)
[2021-08-28 12:52] LABS: Free Kappa Lt Chain Qnt, Serum 15.19 mg/dL (0.33-1.94); Free Lambda Lt Chain Qnt, Seru 7.59 mg/dL (0.57-2.63)
[2021-08-28 14:50] LABS: C-ANCA <1:20 Titer (<1:20)
== END 2021-08-27 18:05 | disposition short-term general hospital (02) | DRG 682 ==
LOC: EC 13:10 → 3SCARD 14:43 → UNDODISIN 08-26 15:43 → 2SICU 08-27 15:50
PROVIDERS: ADMIT Hospitalist; ATTEND Hospitalist
DX: N17.0 Acute kidney failure with tubular necrosis (principal); G93.41 Metabolic encephalopathy; M31.19 Other thrombotic microangiopathy; E87.2 Acidosis; D58.9 Hereditary hemolytic anemia, unspecified; E11.42 Type 2 diabetes mellitus with diabetic polyneuropathy; I95.9 Hypotension, unspecified; I71.2 Thoracic aortic aneurysm, without rupture; J44.9 Chronic obstructive pulmonary disease, unspecified; G31.9 Degenerative disease of nervous system, unspecified; Z20.822 Contact with and (suspected) exposure to COVID-19; I10 Essential (primary) hypertension; I44.0 Atrioventricular block, first degree; E78.00 Pure hypercholesterolemia, unspecified; E78.5 Hyperlipidemia, unspecified; G47.33 Obstructive sleep apnea (adult) (pediatric); R91.1 Solitary pulmonary nodule; S69.91XA Unspecified injury of right wrist, hand and finger(s), initial encounter; R33.9 Retention of urine, unspecified; R39.14 Feeling of incomplete bladder emptying; K21.9 Gastro-esophageal reflux disease without esophagitis; I25.10 Atherosclerotic heart disease of native coronary artery without angina pectoris; I83.90 Asymptomatic varicose veins of unspecified lower extremity; I87.2 Venous insufficiency (chronic) (peripheral); F32.A Depression, unspecified; F41.9 Anxiety disorder, unspecified; R77.8 Other specified abnormalities of plasma proteins; M19.90 Unspecified osteoarthritis, unspecified site; E66.9 Obesity, unspecified; Z68.30 Body mass index [BMI] 30.0-30.9, adult; Z79.84 Long term (current) use of oral hypoglycemic drugs; Z79.899 Other long term (current) drug therapy; Z87.19 Personal history of other diseases of the digestive system; Z87.11 Personal history of peptic ulcer disease; Z90.89 Acquired absence of other organs; Z90.49 Acquired absence of other specified parts of digestive tract; Z98.84 Bariatric surgery status; Z96.653 Presence of artificial knee joint, bilateral; Z87.891 Personal history of nicotine dependence; Z87.39 Personal history of other diseases of the musculoskeletal system and connective tissue; Z87.2 Personal history of diseases of the skin and subcutaneous tissue; Z98.890 Other specified postprocedural states; Z91.048 Other nonmedicinal substance allergy status; W19.XXXA Unspecified fall, initial encounter; Z88.0 Allergy status to penicillin; Z80.49 Family history of malignant neoplasm of other genital organs; Z81.1 Family history of alcohol abuse and dependence; Z63.72 Alcoholism and drug addiction in family; Z83.2 Family history of diseases of the blood and blood-forming organs and certain disorders involving the immune mechanism; Z82.49 Family history of ischemic heart disease and other diseases of the circulatory system; Z83.6 Family history of other diseases of the respiratory system
CPT/HCPCS: 36415; 70450; 71045; 71046; 71250; 76770; 78582; 80053; 80061; 80074; 81001; 82140; 82330; 82550; 82570; 82607; 82728; 82746; 82784; 83010; 83540; 83550; 83605; 83615; 83735; 83883; 83921; 84156; 84165; 84443; 84484; 85025; 85049; 85379; 85384; 85397; 85610; 85652; 85730; 86038; 86160; 86162; 86225; 86255; 86334; 86431; 86704; 86706; 86850; 86870; 86880; 86900; 86901; 86902; 87040; 87086; 87340; 87635; 93005; 93306; 93970; 94002; 94640; 94760; 95816; 99291

== ENCOUNTER 2021-09-19 04:06 | Inpatient (IN) | payer MEDICARE, OTHER ==
--- NOTE | 2021-09-19 04:19 | ED ---
SOB HPI - General Chief Complaint: Shortness of Breath Stated Complaint: KEVIN Time Seen by Provider: 09/19/21 04:15 Source: patient, RN notes reviewed, old records reviewed Mode of arrival: ambulatory Limitations: no limitations - History of Present Illness MD Complaint: shortness of breath, cough, "asthma attack", anxiety -: hour(s) Radiation: back Severity: moderate Severity scale (1-10): 7 Quality: dull, aching Consistency: constant Improves With: nothing Worsens With: exertion, movement Known History Of: COPD, diabetes, recurrent pneumonia Context: recent URI, anxiety, recent illness Associated Symptoms: chest pain, pain with inspiration, cough, sputum production Treatments Prior to Arrival: none - Related Data Home Medications Medication Instructions Recorded Confirmed DULoxetine HCL [Cymbalta] 60 mg PO BID 09/10/13 08/25/21 lisinopriL [Zestril] 2.5 mg PO DAILY 01/17/19 08/25/21 traZODone HCL [Desyrel] 100 mg PO HS 01/17/19 08/25/21 HYDROcodone/APAP 10-325MG [[place] 1 tab PO TID PRN 01/24/19 08/25/21 10-325] Omeprazole 20 mg PO DAILY 01/24/19 08/25/21 Atorvastatin Calcium [Lipitor] 40 mg PO HS 08/25/21 08/25/21 Fluticasone Nasal [place] [Flonase 1 spray EA NOSTRIL DAILY PRN 08/25/21 08/25/21 Nasal [place]] QUEtiapine [SEROquel] 25 mg PO HS 08/25/21 08/25/21 Tiotropium 2.5 Mcg/Puff [Spiriva 2 puff INHALATION RT-DAILY 08/25/21 08/25/21 Respimat 2.5 Mcg] metFORMIN HCL 1,000 mg PO BID 08/25/21 08/25/21 Allergies Allergy/AdvReac Type Severity Reaction Status Date / Time Penicillins Allergy Severe Anaphylaxis Verified 09/19/21 04:14 TRACE METALS Allergy itching,rachna Uncoded 09/19/21 04:14 h Review of Systems ROS Statement: Those systems with pertinent positive or pertinent negative responses have been documented in the HPI. ROS Other: All systems not noted in ROS Statement are negative. Past Medical History Past Medical History: Chest Pain / Angina, COPD, Diabetes Mellitus, GERD/Reflux, Hyperlipidemia, Hypertension, Osteoarthritis (OA), Skin Disorder, Sleep Apnea/CPAP/BIPAP Additional Past Medical History / Comment(s): Diagnosed with mild pancreatitis on 01/22/19, NIDDM type II, neuropathy bilateral hands/legs/feet, arthritis in multiple joints, bilateral carpal tunnel syndrome, gastric ulcer, ADRIANA-no longer uses device since wt loss, varicose veins, venous dermatitis. History of Any Multi-Drug Resistant Organisms: None Reported Past Surgical History: Adenoidectomy, Appendectomy, Bariatric Surgery, Cholecystectomy, Orthopedic Surgery, Tonsillectomy Additional Past Surgical History / Comment(s): 01/13/15 Lap laila en Y gastric bypass with lysis of adhesions, EGDs, colonoscopies, bilateral knee arthroscopy, bilateral knee replacements, D&C Past Anesthesia/Blood Transfusion Reactions: No Reported Reaction Additional Past Anesthesia/Blood Transfusion Reaction / Comment(s): Pt is slow to wake from anesthesia. She has received blood in past without reaction. Past Psychological History: Anxiety, Depression Smoking Status: Former smoker Past Alcohol Use History: None Reported Past Drug Use History: None Reported - Past Family History Mother Family Medical History: Cancer, Deep Vein Thrombosis (DVT) Additional Family Medical History / Comment(s): Mother had uterine cancer. Father Family Medical History: Congestive Heart Failure (CHF), Sleep Apnea/CPAP/BIPAP Additional Family Medical History / Comment(s): Father was an alcoholic. He of CHF at the age of 48yrs. General Exam Limitations: no limitations General appearance: alert, anxious, in distress, obese Head exam: Present: atraumatic, normocephalic, normal inspection Eye exam: Present: normal appearance, PERRL, EOMI. Absent: scleral icterus, conjunctival injection, periorbital swelling ENT exam: Present: normal exam, mucous membranes moist Neck exam: Present: normal inspection. Absent: tenderness, meningismus, lymphadenopathy Respiratory exam: Present: respiratory distress, wheezes, rhonchi, accessory muscle use, decreased breath sounds, prolonged expiratory. Absent: rales, stridor Cardiovascular Exam: Present: regular rate, normal rhythm, normal heart sounds. Absent: systolic murmur, diastolic murmur, rubs, gallop, clicks GI/Abdominal exam: Present: soft, normal bowel sounds. Absent: distended, tenderness, guarding, rebound, rigid Extremities exam: Present: normal inspection, full ROM, normal capillary refill. Absent: tenderness, pedal edema, joint swelling, calf tenderness Back exam: Present: normal inspection Neurological exam: Present: alert, oriented X3, CN II-XII intact Psychiatric exam: Present: normal affect, normal mood Skin exam: Present: warm, dry, intact, normal color. Absent: rash Course Vital Signs 09/19/21 09/19/21 09/19/21 04:11 04:56 05:01 Temperature 97.8 F Pulse Rate 69 108 H 108 H Respiratory 24 Rate Blood Pressure 164/77 O2 Sat by Pulse 94 L Oximetry Medical Decision Making - Lab Data Result diagrams: 09/19/21 04:40 09/19/21 04:40 Lab Results 09/19/21 09/19/21 09/19/21 Range/Units 04:40 04:40 04:40 WBC 5.2 (3.8-10.6) k/uL RBC 2.75 L (3.80-5.40) m/uL Hgb 8.4 L (11.4-16.0) gm/dL Hct 26.4 L (34.0-46.0) % MCV 96.2 D (80.0-100.0) fL MCH 30.5 (25.0-35.0) pg MCHC 31.7 (31.0-37.0) g/dL RDW 16.4 H (11.5-15.5) % Plt Count 147 L D (150-450) k/uL MPV 9.1 Neutrophils % 74 % Lymphocytes % 14 % Monocytes % 8 % Eosinophils % 2 % Basophils % 1 % Neutrophils # 3.8 (1.3-7.7) k/uL Lymphocytes # 0.7 L (1.0-4.8) k/uL Monocytes # 0.4 (0-1.0) k/uL Eosinophils # 0.1 (0-0.7) k/uL Basophils # 0.0 (0-0.2) k/uL Hypochromasia Slight Anisocytosis Slight Sodium 139 (137-145) mmol/L Potassium 3.7 (3.5-5.1) mmol/L Chloride 108 H (98-107) mmol/L Carbon Dioxide 23 (22-30) mmol/L Anion Gap 8 mmol/L BUN 23 H (7-17) mg/dL Creatinine 0.84 (0.52-1.04) mg/dL Est GFR (CKD-EPI)AfAm 83 (>60 ml/min/1.73 sqM) Est GFR (CKD-EPI)NonAf 72 (>60 ml/min/1.73 sqM) Glucose 220 H (74-99) mg/dL Plasma Lactic Acid Bradly 0.9 (0.7-2.0) mmol/L Calcium 8.5 (8.4-10.2) mg/dL Phosphorus 3.9 (2.5-4.5) mg/dL Magnesium 1.6 (1.6-2.3) mg/dL Total Bilirubin 0.4 (0.2-1.3) mg/dL AST 24 (14-36) U/L ALT 12 (4-34) U/L Alkaline Phosphatase 118 (38-126) U/L Total Protein 5.8 L (6.3-8.2) g/dL Albumin 3.0 L (3.5-5.0) g/dL - EKG Data -: EKG Interpreted by Me (EKG is sinus tachycardia 111 LA 136 QRS 80 QTC 385) Disposition Clinical Impression: Asthma with acute exacerbation, Acute exacerbation of chronic obstructive pulmonary disease, Pleural effusion, left, Left lower lobe pneumonia, Generalized weakness, Normocytic anemia Disposition: ADMITTED IP TO THIS HOSP Condition: Good Is patient prescribed a controlled substance at d/c from ED?: No Referrals: Mamadou Gerard DO [Primary Care Provider] - 1-2 days
[2021-09-19] MEDS ORDERED: IPRATROPIUM-ALBUTEROL 3 ML NEB INHALATION STA (04:25)
[2021-09-19] MEDS ORDERED: SODIUM CHLORIDE 0.9% 1,000 ML IV STA (04:25)
[2021-09-19 04:54] LABS: Anisocytosis Slight; Basophils % (A) 1 %; Eosinophils # (A) 0.1 k/uL (0-0.7); Eosinophils % (A) 2 %; HCT 26.4 % (34.0-46.0); HGB 8.4 gm/dL (11.4-16.0); Hypochromasia Slight; Lymphocytes # (A) 0.7 k/uL (1.0-4.8); Lymphocytes % (A) 14 %; MCH 30.5 pg (25.0-35.0); MCHC 31.7 g/dL (31.0-37.0); Mean Platelet Volume 9.1; Monocytes # (A) 0.4 k/uL (0-1.0); Monocytes % (A) 8 %; Neutrophils # (A) 3.8 k/uL (1.3-7.7); Neutrophils % (A) 74 %; RBC 2.75 m/uL (3.80-5.40); RDW 16.4 % (11.5-15.5); WBC 5.2 k/uL (3.8-10.6)
--- NOTE | 2021-09-19 04:58 | XR ---
EXAMINATION TYPE: XR chest 1V portable DATE OF EXAM: 09/19/2021 COMPARISON: 08/27/2021 HISTORY: Short of breath TECHNIQUE: FINDINGS: Heart is enlarged. No heart failure. There is blunting left costophrenic angle. There are c hest leads. IMPRESSION: There is left pleural effusion and left lower lobe infiltrate which are new compared to o ld exam. Cardiomegaly. No heart failure seen.
[2021-09-19 05:01] LABS: MCV 96.2 fL (80.0-100.0); Platelet Count 147 k/uL (150-450)
[2021-09-19 05:06] LABS: Calcium 8.5 mg/dL (8.4-10.2); Magnesium 1.6 mg/dL (1.6-2.3); Phosphorus 3.9 mg/dL (2.5-4.5); Potassium 3.7 mmol/L (3.5-5.1); Total Bilirubin 0.4 mg/dL (0.2-1.3); Total Protein 5.8 g/dL (6.3-8.2)
[2021-09-19] MEDS ORDERED: PNEUMONIA PROTOCOL UTILIZED 1 EACH MISC PO PRN (05:09)
[2021-09-19] MEDS ORDERED: AZITHROMYCIN 500 MG in SODIUM CHLORIDE 0.9% 250 ML IVPB STA (05:09)
[2021-09-19 05:29] LABS: INR 1.1 (<1.2); Partial Thromboplastin Time 27.7 sec (22.0-30.0); Prothrombin Time 11.6 sec (9.0-12.0)
[2021-09-19 07:28] LABS: Glucose,Whole Blood 231 mg/dL (70-110)
[2021-09-19] MEDS ORDERED: ALBUTEROL NEBULIZED 2.5 MG/3 ML INHALATION SCH (08:00)
[2021-09-19] MEDS: INSULIN ASPART (NovoLOG) 100 UNIT/ML VIAL SQ SCH ×4 (08:39→21:05)
[2021-09-19 11:42] LABS: Glucose,Whole Blood 183 mg/dL (70-110)
[2021-09-19] MEDS: HEPARIN SODIUM,PORCINE/PF 5,000 UNIT/0.5 ML SYRINGE SQ SCH ×2 (16:37→23:29)
[2021-09-19] MEDS: SODIUM CHLORIDE 0.9% 1,000 ML IV SCH (16:37)
[2021-09-19 17:08] LABS: Glucose,Whole Blood 108 mg/dL (70-110)
[2021-09-19] MEDS ORDERED: VANCOMYCIN IV PER PHARMACY 1 EACH MISC MISCELLANE PRN (17:32)
[2021-09-19 20:37] LABS: Glucose,Whole Blood 157 mg/dL (70-110)
[2021-09-19] MEDS: VANCOMYCIN 1,500 MG in SODIUM CHLORIDE 0.9% 250 ML IVPB SCH (21:04)
[2021-09-19] MEDS: ACETAMINOPHEN TAB 325 MG TAB PO PRN (21:06)
[2021-09-19] MEDS: IPRATROPIUM-ALBUTEROL 3 ML NEB INHALATION PRN (21:23)
--- NOTE | 2021-09-19 22:28 | P.HPIM ---
History of Present Illness H&P Date: 09/19/21 Chief Complaint: KEVIN Patient is a 66-year-old female with a known history of hypertension, hyperlipidemia, diabetes type 2, obstructive sleep apnea not on CPAP at home, bilateral diabetic peripheral neuropathy, anxiety and depression and prior history of smoking presents to ER with complaints of shortness of breath. Patient does have cough without any sputum production. Was also anxious on admission. No fever no chills. Patient was recently discharged from the hospital on 08/27/2021 and was transferred to [facility] for possible TTP and plasmapheresis. Was admitted to the hospital due to acute kidney injury and altered mental status and found to have schistocytes in the peripheral smear and was seen by hematology. Due to severe thrombocytopenia patient was transferred to [facility] for plasmapheresis and also worsening renal function. Patient was discharged to [facility] for physical therapy. Patient was discharged home about a week ago. Last night patient developed shortness of breath and could not breathe. Patient's fianc brought her to the hospital. On admission blood pressure 164/77 pulse is 69 respiration 24 and pulse ox 94% on room air. Laboratory showed WBC 5.2 hemoglobin 8.4 and platelets 147 Sodium 139 potassium 3.7 chloride 108 bicarb is 23 BUN 23 and creatinine 0.84 and blood sugar is 220 Liver enzymes are not elevated proBNP 993 TSH 3.38 and coronavirus PCR not detected. Chest x-ray showed there is left pleural effusion and left lower lobe infiltrate which are new compared to old exam. No heart failure seen. Cardiomegaly. EKG showed sinus tachycardia and low QRS voltage. Review of Systems Constitutional: Patient denies any fever or chills . Generalized weakness. Abdomen: Patient denied any nausea or vomiting or abd. pain Cardiovascular: Patient denies any chest pain. Positive short of breath no palpitations. Respiratory: patient denied any cough is from production. Patient does have shortness of breath Neurologic: Patient denied any numbness or tingling headache. Musculoskeletal: Patient denies any complaints of joint swelling or deformity. Skin: Negative Psychiatric: Negative Endocrine: No heat or cold intolerance. No recent weight gain. Genitourinary: No dysuria or hematuria. All other 14 point ROS negative except the above Past Medical History Past Medical History: Chest Pain / Angina, COPD, Diabetes Mellitus, GERD/Reflux, Hyperlipidemia, Hypertension, Osteoarthritis (OA), Skin Disorder, Sleep Apnea/CPAP/BIPAP Additional Past Medical History / Comment(s): Diagnosed with mild pancreatitis on 01/22/19, NIDDM type II, neuropathy bilateral hands/legs/feet, arthritis in multiple joints, bilateral carpal tunnel syndrome, gastric ulcer, ADRIANA-no longer uses device since wt loss, varicose veins, venous dermatitis. History of Any Multi-Drug Resistant Organisms: None Reported Past Surgical History: Adenoidectomy, Appendectomy, Bariatric Surgery, Cholecystectomy, Orthopedic Surgery, Tonsillectomy Additional Past Surgical History / Comment(s): 01/13/15 Lap laila en Y gastric bypass with lysis of adhesions, EGDs, colonoscopies, bilateral knee arthroscopy, bilateral knee replacements, D&C Past Anesthesia/Blood Transfusion Reactions: No Reported Reaction Additional Past Anesthesia/Blood Transfusion Reaction / Comment(s): Pt is slow to wake from anesthesia. She has received blood in past without reaction. Past Psychological History: Anxiety, Depression Additional Psychological History / Comment(s): Pt resides with her SO. She uses a cane and walker if needed. 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 Smoking Status: Former smoker Past Alcohol Use History: None Reported Additional Past Alcohol Use History / Comment(s): Pt started smoking in 1969 and quit smoking in 2009 Past Drug Use History: None Reported - Past Family History Mother Family Medical History: Cancer, Deep Vein Thrombosis (DVT) Additional Family Medical History / Comment(s): Mother had uterine cancer. Father Family Medical History: Congestive Heart Failure (CHF), Sleep Apnea/CPAP/BIPAP Additional Family Medical History / Comment(s): Father was an alcoholic. He of CHF at the age of 48yrs. Medications and Allergies Home Medications Medication Instructions Recorded Confirmed Type traZODone HCL [Desyrel] 100 mg PO HS 01/17/19 09/19/21 History Tiotropium 2.5 Mcg/Puff [Spiriva 2 puff INHALATION RT-DAILY 08/25/21 09/19/21 History Respimat 2.5 Mcg] Albuterol Sulfate [Albuterol 2 puff PO RT-Q6H PRN 09/19/21 09/19/21 History Sulfate Hfa] Apixaban [Eliquis] 5 mg PO BID 09/19/21 09/19/21 History Pantoprazole Sodium [Protonix] 40 mg PO DAILY 09/19/21 09/19/21 History cefUROXime axetiL [Ceftin] 500 mg PO BID 09/19/21 09/19/21 History Allergies Allergy/AdvReac Type Severity Reaction Status Date / Time Penicillins Allergy Severe Anaphylaxis Verified 09/19/21 11:10 TRACE METALS Allergy itching,rachna Uncoded 09/19/21 11:10 h Physical Exam Vitals: Vital Signs Temp Pulse Pulse Resp BP BP Pulse Ox 09/19/21 08:04 101 H 16 09/19/21 08:00 97.5 F L 97 16 117/76 99 09/19/21 07:54 103 H 16 100 09/19/21 06:42 98.6 F 104 H 20 108/72 100 09/19/21 05:56 109 H 18 127/77 98 09/19/21 05:01 108 H 09/19/21 04:56 108 H 09/19/21 04:55 99 16 113/76 96 09/19/21 04:11 97.8 F 69 24 164/77 94 L Intake and Output 09/18/21 09/19/21 09/19/21 22:59 06:59 14:59 Other: Weight 86.183 kg PHYSICAL EXAMINATION: Patient is lying in the bed comfortably, no acute distress, awake alert and oriented.. HEENT: Normocephalic. Neck is supple. Pupils reactive. Nostrils clear. Oral cavity is moist. Neck reveals no JVD, carotid bruits, or thyromegaly. CHEST EXAMINATION: Trachea is central. Symmetrical expansion. Left basilar diminished sounds and minimal right basilar crackles. No wheezing. Nonlabored breathing. CARDIAC: Normal S1, S2 with no gallops. No murmurs ABDOMEN: Soft. Bowel sounds present. Nontender. No organomegaly. No abdominal bruits. Extremities: Bilateral trace edema. No clubbing or cyanosis Neurologically awake, alert, oriented x3 with well-coordinated movements. No focal deficits noted Skin: No rash or skin lesions. Psychiatric: Coperative. Nonsuicidal, anxious. Musculoskeletal: No joint swelling or deformity. Normal range of motion. Results CBC & Chem 7: 09/20/21 05:34 09/20/21 05:34 Labs: Abnormal Lab Results - Last 24 Hours (Table) 09/19/21 09/19/21 09/19/21 Range/Units 04:40 04:40 07:27 RBC 2.75 L (3.80-5.40) m/uL Hgb 8.4 L (11.4-16.0) gm/dL Hct 26.4 L (34.0-46.0) % RDW 16.4 H (11.5-15.5) % Plt Count 147 L D (150-450) k/uL Lymphocytes # 0.7 L (1.0-4.8) k/uL Chloride 108 H (98-107) mmol/L BUN 23 H (7-17) mg/dL Glucose 220 H (74-99) mg/dL POC Glucose (mg/dL) 231 H (70-110) mg/dL Total Protein 5.8 L (6.3-8.2) g/dL Albumin 3.0 L (3.5-5.0) g/dL Thrombosis Risk Factor Assmnt - DVT/VTE Prophylaxis DVT/VTE Prophylaxis: Pharmacologic Prophylaxis ordered - Choose All That Apply Each Factor Represents 1 point: Abnormal pulmonary function (COPD), Obesity (BMI >25), Varicose veins Each Risk Factor Represents 2 Points: Age 61-74 years Thrombosis Risk Factor Assessment Total Risk Factor Score: 5 Thrombosis Risk Factor Assessment Level: High Risk Assessment and Plan Assessment: After lower lobe infiltrate/pneumonia. Possible healthcare associated. Recent admission with [facility], thrombocytopenia/TTP and was transferred to [facility] on 08/27/2021 Acute COPD exacerbation. Improved now. Normocytic anemia with hemoglobin level 8.4 and thrombocytopenia Hypertension Hyperlipidemia GERD Diabetes type 2 [id number] Diabetic peripheral neuropathy bilateral Obstructive sleep apnea not using any CPAP at home currently Borderline aneurysm of the ascending aorta Anxiety/depression Prior history of smoking DVT and GI prophylaxis with heparin subcu. Plan: Patient was given a dose of ceftriaxone and azithromycin in the ER. Continue with antibiotics and duo nebs as needed. Encourage oral intake. Follow-up repeat chest x-ray and consider pulmonary evaluation in 2 left pleural effusion. Follow-up CBC and BMP and renal function closely. Time with Patient: Greater than 30
[2021-09-19] MEDS: traZODone HCL 100 MG TAB PO SCH (23:30)
[2021-09-20] MEDS: SODIUM CHLORIDE 0.9% 1,000 ML IV SCH (05:40)
[2021-09-20 05:59] LABS: Glucose,Whole Blood 138 mg/dL (70-110)
[2021-09-20] MEDS: HEPARIN SODIUM,PORCINE/PF 5,000 UNIT/0.5 ML SYRINGE SQ SCH (07:34)
[2021-09-20] MEDS: INSULIN ASPART (NovoLOG) 100 UNIT/ML VIAL SQ SCH ×4 (07:34→20:52)
[2021-09-20] MEDS: PANTOPRAZOLE 40 MG TABLET PO SCH (07:34)
[2021-09-20] MEDS: AZITHROMYCIN 500 MG in SODIUM CHLORIDE 0.9% 250 ML IVPB SCH (07:37)
[2021-09-20] MEDS: IPRATROPIUM-ALBUTEROL 3 ML NEB INHALATION PRN ×4 (07:45→19:31)
--- NOTE | 2021-09-20 07:49 | XR ---
EXAMINATION TYPE: XR chest 2V DATE OF EXAM: 09/20/2021 COMPARISON: 09/19/2021 HISTORY: Shortness of breath TECHNIQUE: Frontal and lateral views of the chest are obtained. FINDINGS: Scattered senescent parenchymal changes noted. Hyperinflation compatible with COPD. Persistent left basilar infiltrate and/or effusion. The right lung is clear. Heart size is stable. Mediastinal structures are stable and grossly unremarkable. No evidence for hilar prominence. Degenerative changes dorsal spine. IMPRESSION: 1. Persistent left basilar infiltrate and/or effusion. The right lung is clear.
[2021-09-20 09:26] LABS: African American GFR (CKD) 88.4 (60.0-200.0); Anion Gap 10.6 mmol/L (10.00-18.00); BUN/Creat Ratio 25.63 Ratio (12.00-20.00); Blood Urea Nitrogen 20.5 mg/dL (9.0-27.0); Carbon Dioxide 20.4 mmol/L (20.0-27.5); Non-African American GFR(CKD) 76.3 (60.0-200.0)
[2021-09-20] MEDS: VANCOMYCIN 1,500 MG in SODIUM CHLORIDE 0.9% 250 ML IVPB SCH (10:14)
[2021-09-20 10:32] LABS: Basophils # (A) 0.03 X 10*3/uL (0.00-0.10); Basophils % (A) 0.8 %; Eosinophils # (A) 0.17 X 10*3/uL (0.04-0.35); Eosinophils % (A) 4.5 %; HCT 24.8 % (37.2-46.3); HGB 7.2 g/dL (12.0-15.0); Immature Grans, Automated 0.5 %; Lymphocytes # (A) 0.72 X 10*3/uL (0.90-5.00); Lymphocytes % (A) 19.2 %; MCH 29.3 pg (27.0-32.0); MCV 100.8 fL (80.0-97.0); Mean Platelet Volume 11.5 fL (9.5-12.2); Monocytes # (A) 0.46 X 10*3/uL (0.20-1.00); Monocytes % (A) 12.3 %; NRBC Per 100 WBC 0 /100 WBCS (0.0-0.0); Neutrophils # (A) 2.35 X 10*3/uL (1.80-7.70); Neutrophils % (A) 62.7 %; Platelet Count 123 X 10*3/uL (140-440); RBC 2.46 X 10*6/uL (4.10-5.20); RDW 16.8 % (11.5-14.5); WBC 3.75 X 10*3/uL (4.50-10.00)
--- NOTE | 2021-09-20 11:09 | P.CONS ---
History of Present Illness - Reason for Consult Consult date: 09/20/21 Anemia and thrombocytopenia - History of Present Illness The patient is a 66-year-old white female with multiple medical problems. She was recently seen in consult when admitted on 08/25/21, with acute kidney injury, anemia, and low platelets in the 20,000 range. The patient had low haptoglobin and elevated LDH. Pathologist review mentioned scattered RBC fragments. The patient was transferred to [facility] for plasmapheresis for presumed TTP. Her ADAMTS 13 however came back in the normal range. - The patient was discharged home from [facility], and readmitted because of shortness of breath starting overnight. She was found to have left lower lobe infiltrate with associated small effusion. She was therefore admitted for presumed pneumonia. Labs showed improvement. Count 147, with hemo globin still in the 8 range. Consultto further evaluation and recommendations. - The patient states that she "has no idea" as to what was done for her at [facility], other than dialysis. She is not aware if she has plasmapheresis or not. He states that the dialysis catheter that was placed in the right upper chest was removed once renal function improved. Review of Systems Constitutional: Reports fatigue, Reports poor appetite, Reports weakness Eyes: denies blurred vision, denies pain Ears: deny: decreased hearing, ear discharge, earache, tinnitus Ears, nose, mouth and throat: Denies headache, Denies sore throat Cardiovascular: Reports dyspnea on exertion Respiratory: Reports dyspnea Gastrointestinal: Denies abdominal pain, Denies diarrhea, Denies nausea, Denies vomiting Genitourinary: Reports as per HPI, Reports urinary frequency Menstruation: Reports postmenopausal Musculoskeletal: Reports muscle weakness Integumentary: Denies pruritus, Denies rash Neurological: Denies numbness, Denies weakness Psychiatric: Denies anxiety, Denies depression Endocrine: Reports high blood sugars Hematologic/Lymphatic: Reports as per HPI Past Medical History Past Medical History: Chest Pain / Angina, COPD, Diabetes Mellitus, GERD/Reflux, Hyperlipidemia, Hypertension, Osteoarthritis (OA), Skin Disorder, Sleep Apnea/CPAP/BIPAP Additional Past Medical History / Comment(s): Diagnosed with mild pancreatitis on 01/22/19, NIDDM type II, neuropathy bilateral hands/legs/feet, arthritis in multiple joints, bilateral carpal tunnel syndrome, gastric ulcer, ADIRANA-no longer uses device since wt loss, varicose veins, venous dermatitis. History of Any Multi-Drug Resistant Organisms: None Reported Past Surgical History: Adenoidectomy, Appendectomy, Bariatric Surgery, Cholecystectomy, Orthopedic Surgery, Tonsillectomy Additional Past Surgical History / Comment(s): 01/13/15 Lap laila en Y gastric bypass with lysis of adhesions, EGDs, colonoscopies, bilateral knee arthroscopy, bilateral knee replacements, D&C Past Anesthesia/Blood Transfusion Reactions: No Reported Reaction Additional Past Anesthesia/Blood Transfusion Reaction / Comm: Pt is slow to wake from anesthesia. She has received blood in past without reaction. Past Psychological History: Anxiety, Depression Additional Psychological History / Comment(s): Pt resides with her SO. She uses a cane and walker if needed. 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 Smoking Status: Former smoker Past Alcohol Use History: None Reported Additional Past Alcohol Use History / Comment(s): Pt started smoking in 1969 and quit smoking in 2009 Past Drug Use History: None Reported - Past Family History Mother Family Medical History: Cancer, Deep Vein Thrombosis (DVT) Additional Family Medical History / Comment(s): Mother had uterine cancer. Father Family Medical History: Congestive Heart Failure (CHF), Sleep Apnea/CPAP/BIPAP Additional Family Medical History / Comment(s): Father was an alcoholic. He of CHF at the age of 48yrs. Medications and Allergies Home Medications Medication Instructions Recorded Confirmed Type traZODone HCL [Desyrel] 100 mg PO HS 01/17/19 09/19/21 History Tiotropium 2.5 Mcg/Puff [Spiriva 2 puff INHALATION RT-DAILY 08/25/21 09/19/21 History Respimat 2.5 Mcg] Albuterol Sulfate [Albuterol 2 puff PO RT-Q6H PRN 09/19/21 09/19/21 History Sulfate Hfa] Apixaban [Eliquis] 5 mg PO BID 09/19/21 09/19/21 History Pantoprazole Sodium [Protonix] 40 mg PO DAILY 09/19/21 09/19/21 History cefUROXime axetiL [Ceftin] 500 mg PO BID 09/19/21 09/19/21 History Allergies Allergy/AdvReac Type Severity Reaction Status Date / Time Penicillins Allergy Severe Anaphylaxis Verified 09/19/21 11:10 TRACE METALS Allergy itching,rachna Uncoded 09/19/21 11:10 h Physical Exam Vitals: Vital Signs Temp Pulse Pulse Resp BP Pulse Ox 09/20/21 08:00 98.5 F 99 20 113/69 99 09/20/21 07:54 89 09/20/21 07:45 88 09/20/21 05:10 96 09/20/21 03:28 18 96 09/20/21 03:15 20 94 L 09/20/21 02:36 98.7 F 95 16 100/60 94 L 09/19/21 21:42 98 09/19/21 21:23 100 09/19/21 20:00 95 18 09/19/21 18:56 100.4 F H 95 18 121/73 98 09/19/21 14:00 99.3 F 100 18 101/54 99 Intake and Output 09/19/21 09/20/21 09/20/21 22:59 06:59 14:59 Intake Total 1180 Balance 1180 Intake: Intake, IV Titration 530 Amount Sodium Chloride 0.9% 1, 80 000 ml @ 20 mls/hr IV . Q24H JAQUELINE Rx#:[id number] Sodium Chloride 0.9% 1, 150 000 ml @ 75 mls/hr IV . [id number] STA Rx#:[id number] Vancomycin 1,500 mg In 250 Sodium Chloride 0.9% 250 ml @ 125 mls/hr IVPB Q16H JAQUELINE Rx#:[id number] cefTRIAXone 2 gm In 50 Sodium Chloride 0.9% 50 ml @ 100 mls/hr IVPB Q24H JAQUELINE Rx#:[id number] Oral 650 Other: # Voids 4 2 - Constitutional General appearance: no acute distress - EENT Eyes: EOMI, PERRLA ENT: hearing grossly normal, normal oropharynx - Neck Neck: no lymphadenopathy - Respiratory Respiratory: bilateral: CTA - Cardiovascular Rhythm: regular Heart sounds: normal: S1, S2 - Gastrointestinal General gastrointestinal: normal bowel sounds, soft - Integumentary Integumentary: normal - Neurologic Neurologic: CNII-XII intact - Musculoskeletal Musculoskeletal: generalized weakness, strength equal bilaterally - Psychiatric Psychiatric: A&O x's 3 Results CBC & Chem 7: 09/20/21 05:34 09/20/21 05:34 Labs: Abnormal Lab Results - Last 24 Hours (Table) 09/19/21 09/19/21 09/20/21 Range/Units 11:41 20:36 05:34 WBC 3.75 L (4.50-10.00) X 10*3/uL RBC 2.46 L (4.10-5.20) X 10*6/uL Hgb 7.2 L (12.0-15.0) g/dL Hct 24.8 L (37.2-46.3) % MCV 100.8 H (80.0-97.0) fL MCHC 29.0 L (32.0-37.0) g/dL RDW 16.8 H (11.5-14.5) % Plt Count 123 L (140-440) X 10*3/uL Lymphocytes # 0.72 L (0.90-5.00) X 10*3/uL Chloride (96-109) mmol/L BUN/Creatinine Ratio (12.00-20.00) Ratio Glucose (70-110) mg/dL POC Glucose (mg/dL) 183 H 157 H (70-110) mg/dL Calcium (8.7-10.3) mg/dL 09/20/21 09/20/21 Range/Units 05:34 05:57 WBC (4.50-10.00) X 10*3/uL RBC (4.10-5.20) X 10*6/uL Hgb (12.0-15.0) g/dL Hct (37.2-46.3) % MCV (80.0-97.0) fL MCHC (32.0-37.0) g/dL RDW (11.5-14.5) % Plt Count (140-440) X 10*3/uL Lymphocytes # (0.90-5.00) X 10*3/uL Chloride 110 H (96-109) mmol/L BUN/Creatinine Ratio 25.63 H (12.00-20.00) Ratio Glucose 142 H (70-110) mg/dL POC Glucose (mg/dL) 138 H (70-110) mg/dL Calcium 8.0 L (8.7-10.3) mg/dL Microbiology - Last 24 Hours (Table) 09/19/21 06:00 Blood Culture - Preliminary Blood No Growth after 24 hours 09/19/21 05:40 Blood Culture - Preliminary Blood No Growth after 24 hours Comments: EKG image reviewed Chest x-ray: report reviewed Assessment and Plan (1) Bicytopenia Narrative/Plan: The patient was transferred to [facility] during her prior admission, due to suspicion for TTP. Pathologist review mention only scattered RBC fragments, and ADAMTS 13 was actually normal. At this time it is not known what the clinical impression of hematology at [facility] was, and if the patient received plasmapheresis or not. - Patient's platelets have significantly improved close to normal today at 147. Hemoglobin is in the 7 range, lower than her baseline during her prior admission. This could be due to new acute illness in terms of her pneumonia. Repeat anemia workup, including for evidence of hemolysis. Continue to monitor. Transfuse to keep hemoglobin greater than 7. -With platelets improving, along with renal function, at this time there doesn't appear to be clinical suspicion for recurrent microangiopathic hemolysis. Current Visit: Yes Status: Acute Code(s): D75.89 - OTHER SPECIFIED DISEASES OF BLOOD AND BLOOD-FORMING ORGANS SNOMED Code(s): 33536777 (2) Left lower lobe pneumonia Narrative/Plan: This appears to be the main presenting complaint. Defer to the admitting service and other consultants for ongoing management Current Visit: Yes Status: Acute Code(s): J18.9 - PNEUMONIA, UNSPECIFIED ORGANISM SNOMED Code(s): 467713118
[2021-09-20 11:37] LABS: Glucose,Whole Blood 194 mg/dL (70-110)
[2021-09-20 16:40] LABS: Glucose,Whole Blood 209 mg/dL (70-110)
[2021-09-20] MEDS: ONDANSETRON 4 MG/2 ML VIAL IVP PRN (17:17)
[2021-09-20] MEDS: ACETAMINOPHEN TAB 325 MG TAB PO PRN (18:05)
[2021-09-20 20:24] LABS: Glucose,Whole Blood 252 mg/dL (70-110)
[2021-09-20] MEDS: traZODone HCL 100 MG TAB PO SCH (20:53)
--- NOTE | 2021-09-21 01:13 | P.PN ---
Subjective Progress Note Date: 09/20/21 Patient is a 66-year-old female with a known history of hypertension, hyperlipidemia, diabetes type 2, obstructive sleep apnea not on CPAP at home, bilateral diabetic peripheral neuropathy, anxiety and depression and prior history of smoking presents to ER with complaints of shortness of breath. Patient does have cough without any sputum production. Was also anxious on admission. No fever no chills. Patient was recently discharged from the hospital on 08/27/2021 and was transferred to [facility] for possible TTP and plasmapheresis. Was admitted to the hospital due to acute kidney injury and altered mental status and found to have schistocytes in the peripheral smear and was seen by matology. Due to severe thrombocytopenia patient was transferred to [facility] for plasmapheresis and also worsening renal function. Patient was discharged to [facility] for physical therapy. Patient was discharged home about a week ago. Last night patient developed shortness of breath and could not breathe. Patient's fianc brought her to the hospital. On admission blood pressure 164/77 pulse is 69 respiration 24 and pulse ox 94% on room air. Laboratory showed WBC 5.2 hemoglobin 8.4 and platelets 147 Sodium 139 potassium 3.7 chloride 108 bicarb is 23 BUN 23 and creatinine 0.84 and blood sugar is 220 Liver enzymes are not elevated proBNP 993 TSH 3.38 and coronavirus PCR not detected. Chest x-ray showed there is left pleural effusion and left lower lobe infiltrate which are new compared to old exam. No heart failure seen. Cardiomegaly. EKG showed sinus tachycardia and low QRS voltage. Patient was transferred to [facility] due to concern for possible TTP. Patient was evaluated by oncology and he was placed on steroids. Further work- up was performed she apparently did not require plasmapheresis. Patient developed acute kidney injury and requiring temporary hemodialysis and her creatinine peaked at 4.8. She was last hemodialyzed on 09/07/2021. He with creatinine level was normalized. Patient was also requiring intubation and [facility] due to altered mental status and encephalopathy and also treated for hyponatremia. Patient was successfully extubated. While here she was at [facility] she developed new onset atrial fibrillation with RVR and was started on Cardizem patient was successfully cardioverted. Patient is maintaining sinus rhythm. Patient was also started on Eliquis and also treated for NSTEMI. 2D echocardiogram during hospitalization showed left ventricular ejection fraction 60 to 65%. Steroids were later stopped by hematology. She has to be on Eliquis for 30 days and then anticoagulation needs to be discontinued. Patient was eventually transferred to inpatient rehab at [facility]. 09/20/2021 Patient is currently resting in the bed. Awake alert oriented x3. Breathing status is much better. Continue on duo nebs. No complaints of chest pain. No nausea vomiting abdominal pain or diarrhea. Patient is being continued on antibiotics for possible pneumonia Overnight T-max was 100.4. Currently afebrile. Laboratory showed WBC 3.74 hemoglobin 7.1 platelets 123 Sodium 141 potassium 4.0 chloride 110 bicarb is 20.4 BUN 20.5 and creatinine 0.8 and blood sugar is 1 4010 calcium 8.0 blood sugar is better controlled. Patient is tolerating oral diet. Chest x-ray showed persistent left basilar infiltrate and/or/effusion. Right lung is clear. Current medications reviewed. Objective - Vital Signs Vital signs: Vital Signs Temp 98.6 F 09/20/21 18:35 Pulse 105 H 09/20/21 21:59 Resp 22 09/20/21 20:00 BP 115/67 09/20/21 18:35 Pulse Ox 97 09/20/21 18:35 FiO2 Intake & Output 09/20/21 09/20/21 09/21/21 06:59 18:59 06:59 Other: Voiding Method Toilet Diaper # Voids 2 1 - Exam PHYSICAL EXAMINATION: Patient is lying in the bed comfortably, no acute distress, awake alert and oriented.. HEENT: Normocephalic. Neck is supple. Pupils reactive. Nostrils clear. Oral cavity is moist. Neck reveals no JVD, carotid bruits, or thyromegaly. CHEST EXAMINATION: Trachea is central. Symmetrical expansion. Left basilar diminished sounds and minimal right basilar crackles. No wheezing. Nonlabored breathing. CARDIAC: Normal S1, S2 with no gallops. No murmurs ABDOMEN: Soft. Bowel sounds present. Nontender. No organomegaly. No abdominal bruits. Extremities: Bilateral trace edema. No clubbing or cyanosis Neurologically awake, alert, oriented x3 with well-coordinated movements. No focal deficits noted Skin: No rash or skin lesions. Psychiatric: Coperative. Nonsuicidal, anxious. Musculoskeletal: No joint swelling or deformity. Normal range of motion. - Labs CBC & Chem 7: 09/20/21 05:34 09/20/21 05:34 Labs: Abnormal Lab Results - Last 24 Hours (Table) 09/20/21 09/20/21 09/20/21 Range/Units 05:34 05:34 05:57 WBC 3.75 L (4.50-10.00) X 10*3/uL RBC 2.46 L (4.10-5.20) X 10*6/uL Hgb 7.2 L (12.0-15.0) g/dL Hct 24.8 L (37.2-46.3) % MCV 100.8 H (80.0-97.0) fL MCHC 29.0 L (32.0-37.0) g/dL RDW 16.8 H (11.5-14.5) % Plt Count 123 L (140-440) X 10*3/uL Lymphocytes # 0.72 L (0.90-5.00) X 10*3/uL Chloride 110 H (96-109) mmol/L BUN/Creatinine Ratio 25.63 H (12.00-20.00) Ratio Glucose 142 H (70-110) mg/dL POC Glucose (mg/dL) 138 H (70-110) mg/dL Calcium 8.0 L (8.7-10.3) mg/dL 09/20/21 09/20/21 09/20/21 Range/Units 11:36 16:37 20:22 WBC (4.50-10.00) X 10*3/uL RBC (4.10-5.20) X 10*6/uL Hgb (12.0-15.0) g/dL Hct (37.2-46.3) % MCV (80.0-97.0) fL MCHC (32.0-37.0) g/dL RDW (11.5-14.5) % Plt Count (140-440) X 10*3/uL Lymphocytes # (0.90-5.00) X 10*3/uL Chloride (96-109) mmol/L BUN/Creatinine Ratio (12.00-20.00) Ratio Glucose (70-110) mg/dL POC Glucose (mg/dL) 194 H 209 H 252 H (70-110) mg/dL Calcium (8.7-10.3) mg/dL Microbiology - Last 24 Hours (Table) 09/19/21 06:00 Blood Culture - Preliminary Blood No Growth after 24 hours 09/19/21 05:40 Blood Culture - Preliminary Blood No Growth after 24 hours Assessment and Plan Assessment: After lower lobe infiltrate/pneumonia. Possible healthcare associated. Recent admission with [facility] requiring HD, A fib, NSTEMI ,thrombocytopenia/TTP and was transferred to [facility] on 08/27/2021 Acute COPD exacerbation. Improved now. Normocytic anemia with hemoglobin level 8.4 and thrombocytopenia Hypertension Hyperlipidemia GERD Diabetes type 2 [id number] Diabetic peripheral neuropathy bilateral Obstructive sleep apnea not using any CPAP at home currently Borderline aneurysm of the ascending aorta Anxiety/depression Prior history of smoking DVT and GI prophylaxis with heparin subcu. Plan: Patient was given a dose of ceftriaxone and azithromycin in the ER. Continue with antibiotics and duo nebs as needed. IS. Encourage oral intake. repeat cxr reviwed.. Follow-up CBC and BMP and renal function closely. Time with Patient: Greater than 30
[2021-09-21] MEDS: VANCOMYCIN 1,500 MG in SODIUM CHLORIDE 0.9% 250 ML IVPB SCH ×2 (02:32→18:04)
[2021-09-21] MEDS: SODIUM CHLORIDE 0.9% 1,000 ML IV SCH (05:39)
[2021-09-21 06:16] LABS: African American GFR (CKD) 88 (>60 ml/min/1.73 sqM); Anion Gap 1 mmol/L; Blood Urea Nitrogen 18 mg/dL (7-17); Calcium 8.3 mg/dL (8.4-10.2); Carbon Dioxide 24 mmol/L (22-30); Chloride 113 mmol/L (98-107); Glucose 132 mg/dL (74-99); Non-African American GFR(CKD) 76 (>60 ml/min/1.73 sqM); Potassium 4.7 mmol/L (3.5-5.1); Sodium 138 mmol/L (137-145)
[2021-09-21 07:28] LABS: Glucose,Whole Blood 127 mg/dL (70-110)
[2021-09-21] MEDS: INSULIN ASPART (NovoLOG) 100 UNIT/ML VIAL SQ SCH ×4 (07:45→20:56)
[2021-09-21] MEDS: APIXABAN 5 MG TAB PO SCH ×2 (07:54→20:08)
[2021-09-21] MEDS: PANTOPRAZOLE 40 MG TABLET PO SCH (07:54)
[2021-09-21] MEDS: AZITHROMYCIN 500 MG in SODIUM CHLORIDE 0.9% 250 ML IVPB SCH (08:01)
[2021-09-21] MEDS: IPRATROPIUM-ALBUTEROL 3 ML NEB INHALATION PRN (08:49)
[2021-09-21 08:53] LABS: Basophils # (A) 0.03 X 10*3/uL (0.00-0.10); Basophils % (A) 0.7 %; Eosinophils # (A) 0.27 X 10*3/uL (0.04-0.35); Eosinophils % (A) 6.1 %; HCT 23.3 % (37.2-46.3); HGB 6.7 g/dL (12.0-15.0); Immature Grans, Automated 0.5 %; Lymphocytes # (A) 0.68 X 10*3/uL (0.90-5.00); Lymphocytes % (A) 15.4 %; MCHC 28.8 g/dL (32.0-37.0); MCV 100.9 fL (80.0-97.0); Mean Platelet Volume 11.3 fL (9.5-12.2); Monocytes % (A) 13.6 %; NRBC Per 100 WBC 0 /100 WBCS (0.0-0.0); Neutrophils # (A) 2.81 X 10*3/uL (1.80-7.70); Neutrophils % (A) 63.7 %; Platelet Count 154 X 10*3/uL (140-440); RBC 2.31 X 10*6/uL (4.10-5.20); RDW 16.7 % (11.5-14.5); WBC 4.41 X 10*3/uL (4.50-10.00)
[2021-09-21 11:13] LABS: Anisocytosis Slight; Basophils % (A) 0 %; Eosinophils # (A) 0.2 k/uL (0-0.7); Eosinophils % (A) 3 %; HCT 25.3 % (34.0-46.0); HGB 7.9 gm/dL (11.4-16.0); Hypochromasia Marked; Lymphocytes # (A) 0.5 k/uL (1.0-4.8); Lymphocytes % (A) 10 %; MCH 31.2 pg (25.0-35.0); MCHC 31.3 g/dL (31.0-37.0); MCV 99.5 fL (80.0-100.0); Macrocytosis Slight; Monocytes # (A) 0.3 k/uL (0-1.0); Monocytes % (A) 6 %; Neutrophils # (A) 4.3 k/uL (1.3-7.7); Neutrophils % (A) 78 %; Platelet Count 182 k/uL (150-450); RBC 2.54 m/uL (3.80-5.40); RDW 16.8 % (11.5-15.5); WBC 5.5 k/uL (3.8-10.6)
[2021-09-21] MEDS ORDERED: FUROSEMIDE 10 MG/ML 2 ML VIAL IV SCH ×2 (11:30→21:00)
[2021-09-21 11:34] LABS: Glucose,Whole Blood 188 mg/dL (70-110)
--- NOTE | 2021-09-21 12:21 | P.CNPUL ---
History of Present Illness Consult date: 09/21/21 Reason for consult: pleural effusion History of present illness: The patient is a 66-year-old white female with multiple medical problems. She was recently seen in consult when admitted on 08/25/21, with acute kidney injury, anemia, and low platelets in the 20,000 range. The patient had low haptoglobin and elevated LDH. Pathologist review mentioned scattered RBC fragments. The patient was transferred to [facility] for plasmapheresis for presumed TTP. Her ADAMTS 13 however came back in the normal range. The patient was discharged home from [facility], and readmitted because of shortness of breath starting overnight. She was found to have left lower lobe infiltrate with associated small effusion. The patient denies having any chest pain. The patient denies having any cough sputum production chest tightness or wheezing. No fever or chills. Note that the patient was released from [facility] while being on anticoagulation with Eliquis. The white cell count of 5.5 with hemoglobin of 7.9 and platelet count of 182. As such, the hematologic profile is essentially improved. Creatinine is at 0.8 with a BUN of 18 and the sodium level of 138. Pro-calcitonin level is at 0.08. She has chronic edema lower extremities bilaterally. Previous echocardiogram that showed a preserved LV function. Previous Doppler of the lower extremities have shown no evidence of any DVTs. Previous CT scan of the chest has shown a borderline aneurysm of the ascending aorta. Lungs are essentially clear. The patient has been started on antibiotics empirically and the patient is currently on IV Rocephin and vanco mycin. Review of Systems Constitutional: Denies chills, Denies fever Eyes: denies as per HPI, denies blurred vision, denies bulging eye, denies decreased vision, denies diplopia, denies discharge, denies dry eye, denies irritation, denies itching, denies pain, denies photophobia, denies loss of peripheral vision, denies loss of vision, denies tunnel vision/blind spots Ears: deny: decreased hearing, ear discharge, earache, tinnitus Ears, nose, mouth and throat: Reports as per HPI Breasts: absent: as per HPI, change in shape, gynecomastia, masses, nipple d ischarge, pain, skin changes, swelling Cardiovascular: Reports dyspnea on exertion Respiratory: Reports dyspnea Gastrointestinal: Reports as per HPI Genitourinary: Reports as per HPI Menstruation: Reports as per HPI Musculoskeletal: Reports as per HPI Musculoskeletal: bilateral: ankle swelling, absent: ankle pain, ankle stiffness Integumentary: Reports as per HPI Neurological: Reports as per HPI Psychiatric: Reports as per HPI Endocrine: Reports as per HPI Hematologic/Lymphatic: Reports as per HPI Allergic/Immunologic: Reports as per HPI Past Medical History Past Medical History: Chest Pain / Angina, COPD, Diabetes Mellitus, GERD/Reflux, Hyperlipidemia, Hypertension, Osteoarthritis (OA), Skin Disorder, Sleep Apnea/CPAP/BIPAP Additional Past Medical History / Comment(s): Diagnosed with mild pancreatitis on 01/22/19, NIDDM type II, neuropathy bilateral hands/legs/feet, arthritis in multiple joints, bilateral carpal tunnel syndrome, gastric ulcer, ADRIANA-no longer uses device since wt loss, varicose veins, venous dermatitis. History of Any Multi-Drug Resistant Organisms: None Reported Past Surgical History: Adenoidectomy, Appendectomy, Bariatric Surgery, Cholecystectomy, Orthopedic Surgery, Tonsillectomy Additional Past Surgical History / Comment(s): 01/13/15 Lap laila en Y gastric bypass with lysis of adhesions, EGDs, colonoscopies, bilateral knee arthroscopy, bilateral knee replacements, D&C Past Anesthesia/Blood Transfusion Reactions: No Reported Reaction Additional Past Anesthesia/Blood Transfusion Reaction / Comment(s): Pt is slow to wake from anesthesia. She has received blood in past without reaction. Past Psychological History: Anxiety, Depression Additional Psychological History / Comment(s): Pt resides with her SO. She uses a cane and walker if needed. 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 Smoking Status: Former smoker Past Alcohol Use History: None Reported Additional Past Alcohol Use History / Comment(s): Pt started smoking in 1969 and quit smoking in 2009 Past Drug Use History: None Reported - Past Family History Mother Family Medical History: Cancer, Deep Vein Thrombosis (DVT) Additional Family Medical History / Comment(s): Mother had uterine cancer. Father Family Medical History: Congestive Heart Failure (CHF), Sleep Apnea/CPAP/BIPAP Additional Family Medical History / Comment(s): Father was an alcoholic. He of CHF at the age of 48yrs. Medications and Allergies Home Medications Medication Instructions Recorded Confirmed Type traZODone HCL [Desyrel] 100 mg PO HS 01/17/19 09/19/21 History Tiotropium 2.5 Mcg/Puff [Spiriva 2 puff INHALATION RT-DAILY 08/25/21 09/19/21 History Respimat 2.5 Mcg] Albuterol Sulfate [Albuterol 2 puff PO RT-Q6H PRN 09/19/21 09/19/21 History Sulfate Hfa] Apixaban [Eliquis] 5 mg PO BID 09/19/21 09/19/21 History Pantoprazole Sodium [Protonix] 40 mg PO DAILY 09/19/21 09/19/21 History cefUROXime axetiL [Ceftin] 500 mg PO BID 09/19/21 09/19/21 History Allergies Allergy/AdvReac Type Severity Reaction Status Date / Time Penicillins Allergy Severe Anaphylaxis Verified 09/19/21 11:10 TRACE METALS Allergy itching,rachna Uncoded 09/19/21 11:10 h Physical Exam Vitals: Vital Signs Temp Pulse Pulse Resp BP Pulse Ox 09/21/21 09:51 16 09/21/21 09:08 88 09/21/21 08:50 92 09/21/21 08:00 99.1 F 104 H 16 127/75 97 09/21/21 05:00 97 09/21/21 01:30 98.8 F 92 16 129/68 100 09/20/21 21:59 105 H 09/20/21 20:01 108 H 09/20/21 20:00 108 H 22 09/20/21 19:40 80 09/20/21 19:31 79 09/20/21 18:35 98.6 F 115 H 22 115/67 97 09/20/21 16:04 79 09/20/21 15:53 78 09/20/21 14:00 98.5 F 115 H 20 124/72 95 09/20/21 11:44 90 09/20/21 11:33 90 Intake and Output 09/20/21 09/21/21 09/21/21 22:59 06:59 14:59 Output Total 0 Balance 0 Output: Urine 0 Other: Voiding Method Toilet Toilet Diaper Diaper # Voids 1 Gen. appearance the patient is calm and comfortable, breathing is nonlabored and the patient is currently on room air oxygen Head exam was generally normal. There was no scleral icterus or corneal arcus. Mucous membranes were moist. Neck was supple and without jugular venous distension, thyromegaly, or carotid bruits. Carotids were easily palpable bilaterally. There was no adenopathy. Lungs sounds are diminished specially left lung base along with some dullness to percussion Heart sounds are regular rate and rhythm normal S1-S2 and there are no murmurs appreciated Abdominal exam revealed normal bowel sounds. The abdomen was soft, non-tender, and without masses, organomegaly, or appreciable enlargement of the abdominal aorta. Examination of the extremities revealed easily palpable radial, femoral and p edal pulses. There was no cyanosis, clubbing there is +2 edema in lower extremity is bilaterally Examination of the skin revealed no evidence of significant rashes, suspicious appearing nevi or other concerning lesions. Neurologically, the patient is awake and alert and the patient does not have any focal neurological deficit. Cranial nerves are essentially intact. Results - Laboratory Findings CBC and BMP: 09/21/21 11:03 09/21/21 05:32 ABG WBC 5.5 k/uL (3.8-10.6) 09/21/21 11:03 RBC 2.54 m/uL (3.80-5.40) L 09/21/21 11:03 Hgb 7.9 gm/dL (11.4-16.0) L 09/21/21 11:03 Hct 25.3 % (34.0-46.0) L 09/21/21 11:03 MCV 99.5 fL (80.0-100.0) 09/21/21 11:03 MCH 31.2 pg (25.0-35.0) 09/21/21 11:03 MCHC 31.3 g/dL (31.0-37.0) 09/21/21 11:03 RDW 16.8 % (11.5-15.5) H 09/21/21 11:03 Plt Count 182 k/uL (150-450) 09/21/21 11:03 MPV 10.0 09/21/21 11:03 Immature Gran % (Auto) 0.5 % 09/21/21 05:32 Absolute Nucleated RBC 0 X 10*3/uL (0.00-0.00) 09/21/21 05:32 Neutrophils % 78 % 09/21/21 11:03 Lymphocytes % 10 % 09/21/21 11:03 Monocytes % 6 % 09/21/21 11:03 Eosinophils % 3 % 09/21/21 11:03 Basophils % 0 % 09/21/21 11:03 Immature Gran # 0.02 X 10*3/uL (0.00-0.04) 09/21/21 05:32 Neutrophils # 4.3 k/uL (1.3-7.7) 09/21/21 11:03 Lymphocytes # 0.5 k/uL (1.0-4.8) L 09/21/21 11:03 Monocytes # 0.3 k/uL (0-1.0) 09/21/21 11:03 Eosinophils # 0.2 k/uL (0-0.7) 09/21/21 11:03 Basophils # 0.0 k/uL (0-0.2) 09/21/21 11:03 NRBC/100 WBC Diff 0 /100 WBCS (0.0-0.0) 09/21/21 05:32 Hypochromasia Marked 09/21/21 11:03 Anisocytosis Slight 09/21/21 11:03 Macrocytosis Slight 09/21/21 11:03 PT 11.6 sec (9.0-12.0) 09/19/21 04:40 INR 1.1 (<1.2) 09/19/21 04:40 APTT 27.7 sec (22.0-30.0) 09/19/21 04:40 Sodium 138 mmol/L (137-145) 09/21/21 05:32 Potassium 4.7 mmol/L (3.5-5.1) 09/21/21 05:32 Chloride 113 mmol/L (98-107) H 09/21/21 05:32 Carbon Dioxide 24 mmol/L (22-30) 09/21/21 05:32 Anion Gap 1 mmol/L 09/21/21 05:32 BUN 18 mg/dL (7-17) H 09/21/21 05:32 Creatinine 0.81 mg/dL (0.52-1.04) 09/21/21 05:32 Est GFR (CKD-EPI)AfAm 88 (>60 ml/min/1.73 sqM) 09/21/21 05:32 Est GFR (CKD-EPI)NonAf 76 (>60 ml/min/1.73 sqM) 09/21/21 05:32 BUN/Creatinine Ratio 25.63 Ratio (12.00-20.00) H 09/20/21 05:34 Glucose 132 mg/dL (74-99) H 09/21/21 05:32 POC Glucose (mg/dL) 127 mg/dL (70-110) H 09/21/21 07:27 POC Glu Religion In[employer] Judi Tamez 09/21/21 07:27 Plasma Lactic Acid Bradly 0.9 mmol/L (0.7-2.0) 09/19/21 04:40 Calcium 8.3 mg/dL (8.4-10.2) L 09/21/21 05:32 Phosphorus 3.9 mg/dL (2.5-4.5) 09/19/21 04:40 Magnesium 1.6 mg/dL (1.6-2.3) 09/19/21 04:40 Total Bilirubin 0.4 mg/dL (0.2-1.3) 09/19/21 04:40 AST 24 U/L (14-36) 09/19/21 04:40 ALT 12 U/L (4-34) 09/19/21 04:40 Alkaline Phosphatase 118 U/L (38-126) 09/19/21 04:40 Troponin I <0.012 ng/mL (0.000-0.034) 09/19/21 04:40 NT-Pro-B Natriuret Pep 993 pg/mL 09/19/21 04:40 Total Protein 5.8 g/dL (6.3-8.2) L 09/19/21 04:40 Albumin 3.0 g/dL (3.5-5.0) L 09/19/21 04:40 Procalcitonin 0.08 ng/mL (0.02-0.09) 09/21/21 05:32 TSH 3.380 mIU/L (0.465-4.680) 09/19/21 04:40 Coronavirus (PCR) Not Detected (Not Detectd) 09/19/21 06:08 PT/INR, D-dimer PT 11.6 sec (9.0-12.0) 09/19/21 04:40 INR 1.1 (<1.2) 09/19/21 04:40 Abnormal lab findings: Abnormal Labs 09/19/21 09/19/21 09/19/21 04:40 04:40 07:27 WBC RBC 2.75 L Hgb 8.4 L Hct 26.4 L MCV MCHC RDW 16.4 H Plt Count 147 L D Lymphocytes # 0.7 L Chloride 108 H BUN 23 H BUN/Creatinine Ratio Glucose 220 H POC Glucose (mg/dL) 231 H Calcium Total Protein 5.8 L Albumin 3.0 L 09/19/21 09/19/21 09/20/21 11:41 20:36 05:34 WBC 3.75 L RBC 2.46 L Hgb 7.2 L Hct 24.8 L MCV 100.8 H MCHC 29.0 L RDW 16.8 H Plt Count 123 L Lymphocytes # 0.72 L Chloride BUN BUN/Creatinine Ratio Glucose POC Glucose (mg/dL) 183 H 157 H Calcium Total Protein Albumin 09/20/21 09/20/21 09/20/21 05:34 05:57 11:36 WBC RBC Hgb Hct MCV MCHC RDW Plt Count Lymphocytes # Chloride 110 H BUN BUN/Creatinine Ratio 25.63 H Glucose 142 H POC Glucose (mg/dL) 138 H 194 H Calcium 8.0 L Total Protein Albumin 09/20/21 09/20/21 09/21/21 16:37 20:22 05:32 WBC RBC Hgb Hct MCV MCHC RDW Plt Count Lymphocytes # Chloride 113 H BUN 18 H BUN/Creatinine Ratio Glucose 132 H POC Glucose (mg/dL) 209 H 252 H Calcium 8.3 L Total Protein Albumin 09/21/21 09/21/21 09/21/21 05:32 07:27 11:03 WBC 4.41 L RBC 2.31 L 2.54 L Hgb 6.7 L* 7.9 L Hct 23.3 L 25.3 L MCV 100.9 H MCHC 28.8 L RDW 16.7 H 16.8 H Plt Count Lymphocytes # 0.68 L 0.5 L Chloride BUN BUN/Creatinine Ratio Glucose POC Glucose (mg/dL) 127 H Calcium Total Protein Albumin - Diagnostic Findings Chest x-ray: image reviewed Assessment and Plan Plan: Left sided pleural effusion, under investigation. indication for an underlying pneumonia. The patient is currently covered with a combination of Rocephin and vancomycin. Nevertheless, she is not acting toxic or septic and the pro- calcitonin level has been quite low. Acute on chronic dyspnea, under investigation Leg edema, chronic with episodic cellulitis involving lower extremity is bilaterally COPD, which appears to be stable Acute kidney injury, secondary to ATN/hypotension recovered Thrombocytopenia, recovered History of diabetes mellitus with diabetic neuropathy. History of sleep apnea syndrome, currently not on CPAP. History of gastroesophageal reflux disease. History of hypertension. History of hyperlipidemia. History of mild pancreatitis. History of arthritis. Prior history of Laila-en-Y bariatric surgery for obesity. Mild ascending aortic aneurysm Plan CTA of the chest, rule out pulmonary embolism, rule out any other abnormalities contributing to his left-sided pleural effusion. Possible thorcentesis, based on the CAT scan findings IV lasix 20 mg Q12 hours Hematologic profile is essentially improved We'll continue to follow
[2021-09-21 13:40] LABS: Glucose,Whole Blood 259 mg/dL (70-110)
[2021-09-21] MEDS ORDERED: FUROSEMIDE 10 MG/ML 2 ML VIAL IV STA (13:50)
[2021-09-21] MEDS: ACETAMINOPHEN TAB 325 MG TAB PO PRN ×2 (14:00→20:08)
--- NOTE | 2021-09-21 14:03 | XR ---
EXAMINATION TYPE: XR chest 1V DATE OF EXAM: 09/21/2021 HISTORY: Shortness of breath. COMPARISON: 09/20/2021 TECHNIQUE: Single view of the chest is submitted. FINDINGS: Demonstrated are scattered senescent parenchymal change. Increasing left lower lobe infiltrate and/or atelectasis with pleural effusion. The heart is stable. Hilar and mediastinal structures are within normal limits. Degenerative changes are seen of the dorsal spine. IMPRESSION: 1. Increasing left lower lobe infiltrate and/or atelectasis with pleural effusion.
--- NOTE | 2021-09-21 14:59 | P.PN ---
Subjective Progress Note Date: 09/21/21 Principal diagnosis: Anemia Objective - Vital Signs Vital signs: Vital Signs Temp 99.1 F 09/21/21 08:00 Pulse 88 09/21/21 09:08 Resp 16 09/21/21 09:51 BP 127/75 09/21/21 08:00 Pulse Ox 97 09/21/21 08:00 FiO2 Intake & Output 09/20/21 09/21/21 09/21/21 18:59 06:59 18:59 Output Total 0 Balance 0 Output: Urine 0 Other: Voiding Method Toilet Toilet Diaper Diaper # Voids 1 - Exam - Constitutional General appearance: no acute distress - EENT Eyes: EOMI, PERRLA ENT: hearing grossly normal, normal oropharynx - Neck Neck: no lymphadenopathy - Respiratory Respiratory: Decreased left upper and lower lobes - Cardiovascular Rhythm: regular Heart sounds: normal: S1, S2 - Gastrointestinal General gastrointestinal: normal bowel sounds, soft - Integumentary Integumentary: Erythema and edema BLE - Neurologic Neurologic: CNII-XII intact - Musculoskeletal Musculoskeletal: generalized weakness, strength equal bilaterally - Psychiatric Psychiatric: A&O x's 3 - Labs CBC & Chem 7: 09/21/21 11:03 09/21/21 05:32 Labs: Abnormal Lab Results - Last 24 Hours (Table) 09/20/21 09/20/21 09/21/21 Range/Units 16:37 20:22 05:32 WBC (4.50-10.00) X 10*3/uL RBC (4.10-5.20) X 10*6/uL Hgb (12.0-15.0) g/dL Hct (37.2-46.3) % MCV (80.0-97.0) fL MCHC (32.0-37.0) g/dL RDW (11.5-14.5) % Lymphocytes # (0.90-5.00) X 10*3/uL Chloride 113 H (98-107) mmol/L BUN 18 H (7-17) mg/dL Glucose 132 H (74-99) mg/dL POC Glucose (mg/dL) 209 H 252 H (70-110) mg/dL Calcium 8.3 L (8.4-10.2) mg/dL Crossmatch 09/21/21 09/21/21 09/21/21 Range/Units 05:32 07:27 10:05 WBC 4.41 L (4.50-10.00) X 10*3/uL RBC 2.31 L (4.10-5.20) X 10*6/uL Hgb 6.7 L* (12.0-15.0) g/dL Hct 23.3 L (37.2-46.3) % MCV 100.9 H (80.0-97.0) fL MCHC 28.8 L (32.0-37.0) g/dL RDW 16.7 H (11.5-14.5) % Lymphocytes # 0.68 L (0.90-5.00) X 10*3/uL Chloride (98-107) mmol/L BUN (7-17) mg/dL Glucose (74-99) mg/dL POC Glucose (mg/dL) 127 H (70-110) mg/dL Calcium (8.4-10.2) mg/dL Crossmatch See Detail 09/21/21 09/21/21 09/21/21 Range/Units 11:03 11:33 13:39 WBC (4.50-10.00) X 10*3/uL RBC 2.54 L (4.10-5.20) X 10*6/uL Hgb 7.9 L (12.0-15.0) g/dL Hct 25.3 L (37.2-46.3) % MCV (80.0-97.0) fL MCHC (32.0-37.0) g/dL RDW 16.8 H (11.5-14.5) % Lymphocytes # 0.5 L (0.90-5.00) X 10*3/uL Chloride (98-107) mmol/L BUN (7-17) mg/dL Glucose (74-99) mg/dL POC Glucose (mg/dL) 188 H 259 H (70-110) mg/dL Calcium (8.4-10.2) mg/dL Crossmatch Microbiology - Last 24 Hours (Table) 09/19/21 06:00 Blood Culture - Preliminary Blood No Growth after 48 hours 09/19/21 05:40 Blood Culture - Preliminary Blood No Growth after 48 hours 09/19/21 21:06 Blood Culture - Preliminary Blood No Growth after 24 hours Assessment and Plan Plan: Comments: EKG image reviewed Chest x-ray: report reviewed Assessment and Plan (1) Bicytopenia Narrative/Plan: The patient was transferred to [facility] during her prior admission, due to suspicion for TTP. Pathologist review mention only scattered RBC fragments - Await HFH results - Await repeat hemolysis work-up - Continue treatment od underlying infections -With platelets improving, along with renal function, at this time there doesn't appear to be clinical suspicion for recurrent microangiopathic hemolysis. Current Visit: Yes Status: Acute Code(s): D75.89 - OTHER SPECIFIED DISEASES OF BLOOD AND BLOOD-FORMING ORGANS SNOMED Code(s): 59010033 (2) Left lower lobe pneumonia Narrative/Plan: This appears to be the main presenting complaint. Defer to the admitting s ervice and other consultants for ongoing management Current Visit: Yes Status: Acute Code(s): J18.9 - PNEUMONIA, UNSPECIFIED ORGANISM SNOMED Code(s): 845730320
--- NOTE | 2021-09-21 15:25 | CT ---
EXAMINATION TYPE: CT chest angio for PE CT DLP: 445.6 mGycm, Automated exposure control for dose reduction was used. DATE OF EXAM: 09/21/2021 3:11 PM COMPARISON: Chest CT 08/25/2021 CLINICAL INDICATION:Female, 66 years old with history of shortness of breath; TECHNIQUE/CONTRAST: CTA scan of the thorax is performed with IV Contrast, patient injected with 100ml mL of Isovue 370, p ulmonary embolism protocol. MIP images are created and reviewed. FINDINGS: Limited evaluation secondary motion. Pulmonary Artery: There is no evidence for a central filling defect within the pulmonary vasculature to suggest acute pulmonary embolism. Limited evaluation of the segmental and subsegmental branches se condary to bolus timing. The pulmonary artery is of normal size. Lungs/Pleura: There is a moderate left pleural effusion. There is thickening of interlobular septa. T here is a small right pleural effusion. No pneumothorax. Airway: Large airways are patent. Heart: Is mildly enlarged for size. There is a moderate pericardial effusion. Vasculature: No evidence of aortic aneurysm. Scattered atherosclerosis of the arterial vasculature. Mediastinum: No gross evidence of adenopathy. Musculoskeletal: No acute osseous abnormalities Soft Tissues: Unremarkable. Lower neck: Partially calcified left thyroid nodule. Upper Abdomen: Postsurgical changes of gastric lumen. IMPRESSION: 1. No evidence of central pulmonary embolism. Limited evaluation of the segmental and subsegmental br anches. 2. New from 08/25/2021 moderate pericardial effusion, Correlate for signs and symptoms of tamponade. 3. Cardiomegaly with pulmonary vascular congestion and bilateral pleural effusions correlate for clark estive heart failure. 4. Postsurgical changes to the stomach.
[2021-09-21 16:35] LABS: Reticulocyte % 4.4 % (0.5-2.0)
[2021-09-21 16:38] LABS: Glucose,Whole Blood 307 mg/dL (70-110)
[2021-09-21] MEDS ORDERED: FUROSEMIDE 10 MG/ML 2 ML VIAL IV ONE (18:00)
[2021-09-21] MEDS: FUROSEMIDE 10 MG/ML 2 ML VIAL IV SCH (20:06)
[2021-09-21] MEDS: traZODone HCL 100 MG TAB PO SCH (20:08)
[2021-09-21 20:51] LABS: Glucose,Whole Blood 242 mg/dL (70-110)
--- NOTE | 2021-09-21 21:20 | P.PN ---
Subjective Progress Note Date: 09/21/21 Patient is a 66-year-old female with a known history of hypertension, hyperlipidemia, diabetes type 2, obstructive sleep apnea not on CPAP at home, bilateral diabetic peripheral neuropathy, anxiety and depression and prior history of smoking presents to ER with complaints of shortness of breath. Patient does have cough without any sputum production. Was also anxious on admission. No fever no chills. Patient was recently discharged from the hospital on 08/27/2021 and was transferred to [facility] for possible TTP and plasmapheresis. Was admitted to the hospital due to acute kidney injury and altered mental status and found to have schistocytes in the peripheral smear and was seen by matology. Due to severe thrombocytopenia patient was transferred to [facility] for plasmapheresis and also worsening renal function. Patient was discharged to [facility] for physical therapy. Patient was discharged home about a week ago. Last night patient developed shortness of breath and could not breathe. Patient's fianc brought her to the hospital. On admission blood pressure 164/77 pulse is 69 respiration 24 and pulse ox 94% on room air. Laboratory showed WBC 5.2 hemoglobin 8.4 and platelets 147 Sodium 139 potassium 3.7 chloride 108 bicarb is 23 BUN 23 and creatinine 0.84 and blood sugar is 220 Liver enzymes are not elevated proBNP 993 TSH 3.38 and coronavirus PCR not detected. Chest x-ray showed there is left pleural effusion and left lower lobe infiltrate which are new compared to old exam. No heart failure seen. Cardiomegaly. EKG showed sinus tachycardia and low QRS voltage. Patient was transferred to [facility] due to concern for possible TTP. Patient was evaluated by oncology and he was placed on steroids. Further work- up was performed she apparently did not require plasmapheresis. Patient developed acute kidney injury and requiring temporary hemodialysis and her creatinine peaked at 4.8. She was last hemodialyzed on 09/07/2021. He with creatinine level was normalized. Patient was also requiring intubation and [facility] anical ventilator due to altered mental status and encephalopathy and also treated for hyponatremia. Patient was successfully extubated. While here she was at [facility] she developed new onset atrial fibrillation with RVR and was started on Cardizem patient was successfully cardioverted. Patient is maintaining sinus rhythm. Patient was also started on Eliquis and also treated for NSTEMI. 2D echocardiogram during hospitalization showed left ventricular ejection fraction 60 to 65%. Steroids were later stopped by hematology. She has to be on Eliquis for 30 days and then anticoagulation needs to be discontinued. Patient was eventually transferred to inpatient rehab at [facility]. 09/20/2021 Patient is currently resting in the bed. Awake alert oriented x3. Breathing status is much better. Continue on duo nebs. No complaints of chest pain. No nausea vomiting abdominal pain or diarrhea. Patient is being continued on antibiotics for possible pneumonia Overnight T-max was 100.4. Currently afebrile. Laboratory showed WBC 3.74 hemoglobin 7.1 platelets 123 Sodium 141 potassium 4.0 chloride 110 bicarb is 20.4 BUN 20.5 and creatinine 0.8 and blood sugar is 1 4010 calcium 8.0 blood sugar is better controlled. Patient is tolerating oral diet. Chest x-ray showed persistent left basilar infiltrate and/or/effusion. Right lung is clear. 09/21/2021 Patient is seen and evaluated in follow-up this morning currently sitting up at the side of the bed extremely weak requiring 2 person assist to get up although ambulating with a walker and standby assistance. Patient continues to have some shortness of breath with exertion although maintained on 1 liter of 02 currently. Patient appears working to breathe. Patient hemoglobin was low this am and sent to [facility] with some hemolysis and a stat cbc has been reordered. Pulmonary and cardiology consulted. Chest xray ordered. Patient did receive a dose of IV lasix today. Labs pending repeat. Patient also continues with fevers and is maintained on IV abx and will consult infectious disease. Review of systems: Constitutional: reports of fatigue, no reports of fever, or chills Cardiovascular: No reports of chest pain or palpitations Respiratory: reports of shortness of breath, no reports of cough GI: No reports of nausea, vomiting, or diarrhea : No reports of dysuria or retention Neurovascular: reports of generalized weakness All medications have been reviewed Active Medications Acetaminophen (Acetaminophen Tab 325 Mg Tab) 650 mg PO Q6HR PRN PRN Reason: Fever and/ or Pain Last Admin: 09/21/21 14:00 Dose: 650 mg Albuterol/Ipratropium (Ipratropium-Albuterol 3 Ml Neb) 3 ml INHALATION RT-QID PRN PRN Reason: Shortness Of Breath Or Wheezing Last Admin: 09/21/21 08:49 Dose: 3 ml Apixaban (Apixaban 5 Mg Tab) 5 mg PO BID [facility]; Protocol Stop: 10/13/21 09:00 Last Admin: 09/21/21 07:54 Dose: 5 mg Cyanocobalamin (Cyanocobalamin 500 Mcg Tab) 1,000 mcg PO DAILY [facility] Furosemide (Furosemide 10 Mg/Ml 2 Ml Vial) 20 mg IV BID [facility] Sodium Chloride (Saline 0.9%) 1,000 mls @ 20 mls/hr IV .Q24H [facility] Last Admin: 09/21/21 05:39 Dose: 20 mls/hr Ceftriaxone Sodium 2 gm/ (Sodium Chloride) 50 mls @ 100 mls/hr IVPB Q24H [facility]; Protocol Stop: 09/23/21 06:29 Last Admin: 09/21/21 05:38 Dose: 100 mls/hr Vancomycin HCl 1,500 mg/ (Sodium Chloride) 250 mls @ 125 mls/hr IVPB Q16H [facility] Last Admin: 09/21/21 02:32 Dose: 125 mls/hr Insulin Aspart (Insulin Aspart (Novolog) 100 Unit/Ml Vial) 0 unit SQ ACHS [facility]; Protocol Last Admin: 09/21/21 13:09 Dose: Not Given Miscellaneous Information (Pneumonia Protocol Utilized 1 Each Misc) 1 each PO O NCE PRN PRN Reason: Per Protocol Ondansetron HCl (Ondansetron 4 Mg/2 Ml Vial) 4 mg IVP Q6HR PRN PRN Reason: Nausea And Vomiting Last Admin: 09/20/21 17:17 Dose: 4 mg Pantoprazole Sodium (Pantoprazole 40 Mg Tablet) 40 mg PO AC-BRKFST [facility] Last Admin: 09/21/21 07:54 Dose: 40 mg Trazodone HCl (Trazodone Hcl 100 Mg Tab) 100 mg PO HS [facility] Last Admin: 09/20/21 20:53 Dose: 100 mg Physical exam: Patient is sitting up in the bed comfortably, no acute distress, awake alert and oriented.. HEENT: Normocephalic. Neck is supple. Pupils reactive. Nostrils clear. Oral cavity is moist. Neck reveals no JVD, carotid bruits, or thyromegaly. CHEST EXAMINATION: Trachea is central. Symmetrical expansion. diminished sounds bilaterally and minimal right basilar crackles. No wheezing. somewhat labored breathing with attempting to get up from bed to a seated position. CARDIAC: Normal S1, S2 with no gallops. No murmurs ABDOMEN: Soft. Bowel sounds present. Nontender. No organomegaly. No abdominal bruits. Extremities: Bilateral trace edema. No clubbing or cyanosis Neurologically awake, alert, oriented x3 with well-coordinated movements. diffuse weakness noted Skin: No rash or skin lesions. Psychiatric: Cooperative. Non-suicidal, anxious. Musculoskeletal: No joint swelling or deformity. Normal range of motion. Assessment: Left lower lobe infiltrate/pneumonia. Possible healthcare associated. Recent admission with [facility] requiring HD, A fib, NSTEMI ,thrombocytopenia/TTP and was transferred to [facility] on 08/27/2021 Acute COPD exacerbation. pleural effusions and some possible pericardial effusion noted on CTA Normocytic anemia with hemoglobin level 8.4 and thrombocytopenia Hypertension Hyperlipidemia GERD Diabetes type 2 [id number] Diabetic peripheral neuropathy bilateral Obstructive sleep apnea not using any CPAP at home currently Borderline aneurysm of the ascending aorta Anxiety/depression Prior history of smoking DVT prophylaxis GI prophylaxis Full code Plan: Patient is maintained on antibiotics in the form of ceftriaxone and Zithromax along with vancomycin for pneumonia and pulmonary has been consulted and pending. Patient had an episode of increased hypoxia and shortness of breath with chest x-ray showing increasing left lower lobe infiltrate and/or atelectasis with pleural effusions and being placed on oxygen for supplemental support Worsening shortness of breath and CTA ordered and pending Patient continues with occasional low-grade temps and will consult infectious disease and appreciate input and recommendations. Patient was given a dose of IV Lasix and will be placed on 20 mg of IV Lasix twice a day and follow-up repeat labs in the morning Recommend chest x-ray in the a.m. PT/OT to evaluate the patient Recommend incentive spirometer and encourage the patient to continue using at least 10 times every hour while awake. Due to multiple complex medical issues, prognosis is guarded The impression and plan of care has been dictated by Taina Yuen, Nurse Practitioner as directed. Dr. Yesica MD I have performed a history and examination and MDM of this patient, discussed the same with the dictator, and agree with the dictator's assessment and plan as written ,documented as a scribe. Based on total visit time, I have performed more than 50% of the visit. Objective - Vital Signs Vital signs: Vital Signs Temp 99.1 F 09/21/21 08:00 Pulse 88 09/21/21 09:08 Resp 16 09/21/21 08:00 BP 127/75 09/21/21 08:00 Pulse Ox 97 09/21/21 08:00 FiO2 Intake & Output 09/20/21 09/21/21 09/21/21 18:59 06:59 18:59 Output Total 0 Balance 0 Output: Urine 0 Other: Voiding Method Toilet Diaper # Voids 1 - Labs CBC & Chem 7: 09/21/21 11:03 09/21/21 05:32 Labs: Abnormal Lab Results - Last 24 Hours (Table) 09/20/21 09/20/21 09/20/21 Range/Units 05:34 11:36 16:37 WBC 3.75 L (4.50-10.00) X 10*3/uL RBC 2.46 L (4.10-5.20) X 10*6/uL Hgb 7.2 L (12.0-15.0) g/dL Hct 24.8 L (37.2-46.3) % MCV 100.8 H (80.0-97.0) fL MCHC 29.0 L (32.0-37.0) g/dL RDW 16.8 H (11.5-14.5) % Plt Count 123 L (140-440) X 10*3/uL Lymphocytes # 0.72 L (0.90-5.00) X 10*3/uL Chloride (98-107) mmol/L BUN (7-17) mg/dL Glucose (74-99) mg/dL POC Glucose (mg/dL) 194 H 209 H (70-110) mg/dL Calcium (8.4-10.2) mg/dL 09/20/21 09/21/21 09/21/21 Range/Units 20:22 05:32 05:32 WBC 4.41 L (4.50-10.00) X 10*3/uL RBC 2.31 L (4.10-5.20) X 10*6/uL Hgb 6.7 L* (12.0-15.0) g/dL Hct 23.3 L (37.2-46.3) % MCV 100.9 H (80.0-97.0) fL MCHC 28.8 L (32.0-37.0) g/dL RDW 16.7 H (11.5-14.5) % Plt Count (140-440) X 10*3/uL Lymphocytes # 0.68 L (0.90-5.00) X 10*3/uL Chloride 113 H (98-107) mmol/L BUN 18 H (7-17) mg/dL Glucose 132 H (74-99) mg/dL POC Glucose (mg/dL) 252 H (70-110) mg/dL Calcium 8.3 L (8.4-10.2) mg/dL 09/21/21 Range/Units 07:27 WBC (4.50-10.00) X 10*3/uL RBC (4.10-5.20) X 10*6/uL Hgb (12.0-15.0) g/dL Hct (37.2-46.3) % MCV (80.0-97.0) fL MCHC (32.0-37.0) g/dL RDW (11.5-14.5) % Plt Count (140-440) X 10*3/uL Lymphocytes # (0.90-5.00) X 10*3/uL Chloride (98-107) mmol/L BUN (7-17) mg/dL Glucose (74-99) mg/dL POC Glucose (mg/dL) 127 H (70-110) mg/dL Calcium (8.4-10.2) mg/dL Microbiology - Last 24 Hours (Table) 09/19/21 06:00 Blood Culture - Preliminary Blood No Growth after 48 hours 09/19/21 05:40 Blood Culture - Preliminary Blood No Growth after 48 hours 09/19/21 21:06 Blood Culture - Preliminary Blood No Growth after 24 hours
--- NOTE | 2021-09-21 22:01 | P.CONS ---
History of Present Illness - Reason for Consult Consult date: 09/21/21 Fever and possible pneumonia Requesting physician: Malissa Robert - Chief Complaint Increasing shortness of breath x few days - History of Present Illness Patient is a 66-year female with recent admission to the hospital for presumed ITP for which the patient was transferred to [facility] afterwards the patient was sent to [facility] inpatient rehab from with the patient was discharged last Tuesday, patient now presenting back to the hospital at [facility] on 09/19/2021 for evaluation of increasing shortness of breath that apparently started the day before presentation to the hospital patient complaining mostly shortness of breath but denies having any chest pain or any cough or sputum production but denies any nausea no vomiting no choking on food no abdominal pain or any diarrhea with the symptoms the patient was evaluated on arrival to the ER patient was afebrile however she did have a low- grade fever of 100.4 on 09/19/2021 and temperature of 102.6 F this afternoon patient was also tachycardic, patient did have a chest x-ray which shows left effusion and left lower lobe infiltrate which is new compared to recent x-ray patient has been started on Rocephin and vancomycin infectious disease was consulted for further management of antibiotic therapy patient did have a negative COVID test Review of Systems Positive point has been mentioned in the HPI rest of the systems are negative Past Medical History Past Medical History: Chest Pain / Angina, COPD, Diabetes Mellitus, GERD/Reflux, Hyperlipidemia, Hypertension, Osteoarthritis (OA), Skin Disorder, Sleep Apnea/CPAP/BIPAP Additional Past Medical History / Comment(s): Diagnosed with mild pancreatitis on 01/22/19, NIDDM type II, neuropathy bilateral hands/legs/feet, arthritis in multiple joints, bilateral carpal tunnel syndrome, gastric ulcer, ADRIANA-no longer uses device since wt loss, varicose veins, venous dermatitis. History of Any Multi-Drug Resistant Organisms: None Reported Past Surgical History: Adenoidectomy, Appendectomy, Bariatric Surgery, Cholecystectomy, Orthopedic Surgery, Tonsillectomy Additional Past Surgical History / Comment(s): 01/13/15 Lap laila en Y gastric bypass with lysis of adhesions, EGDs, colonoscopies, bilateral knee arthroscopy, bilateral knee replacements, D&C Past Anesthesia/Blood Transfusion Reactions: No Reported Reaction Additional Past Anesthesia/Blood Transfusion Reaction / Comm: Pt is slow to wake from anesthesia. She has received blood in past without reaction. Past Psychological History: Anxiety, Depression Additional Psychological History / Comment(s): Pt resides with her SO. She uses a cane and walker if needed. She has never had a driver/sales workers's license- her SO takes her to appts. Smoking Status: Former smoker Past Alcohol Use History: None Reported Additional Past Alcohol Use History / Comment(s): Pt started smoking in 1969 and quit smoking in 2009 Past Drug Use History: None Reported - Past Family History Mother Family Medical History: Cancer, Deep Vein Thrombosis (DVT) Additional Family Medical History / Comment(s): Mother had uterine cancer. Father Family Medical History: Congestive Heart Failure (CHF), Sleep Apnea/CPAP/BIPAP Additional Family Medical History / Comment(s): Father was an alcoholic. He of CHF at the age of 48yrs. Brother(s) Family Medical History: Coronary Artery Disease (CAD) (Status post PCI) Medications and Allergies Home Medications Medication Instructions Recorded Confirmed Type traZODone HCL [Desyrel] 100 mg PO HS 01/17/19 09/19/21 History Tiotropium 2.5 Mcg/Puff [Spiriva 2 puff INHALATION RT-DAILY 08/25/21 09/19/21 History Respimat 2.5 Mcg] Albuterol Sulfate [Albuterol 2 puff PO RT-Q6H PRN 09/19/21 09/19/21 History Sulfate Hfa] Apixaban [Eliquis] 5 mg PO BID 09/19/21 09/19/21 History Pantoprazole Sodium [Protonix] 40 mg PO DAILY 09/19/21 09/19/21 History Acetaminophen Tab [Tylenol] 650 mg PO Q6HR PRN #30 tab 09/30/21 Rx Furosemide [Lasix] 40 mg PO BID@0900,1600 30 Days #60 09/30/21 Rx tab HYDROcodone/APAP 5-325MG [[place] 1 each PO Q6HR PRN #6 tab 09/30/21 Rx 5-325] Metoprolol Tartrate [Lopressor] 25 mg PO BID 30 Days #60 tab 09/30/21 Rx Ondansetron Odt [Zofran Odt] 4 mg PO Q8HR PRN #20 tab 09/30/21 Rx Sennosides [Senokot] 8.6 mg PO BID PRN tab 09/30/21 Rx metFORMIN HCL 500 mg PO BID 30 Days #60 tablet 09/30/21 Rx Allergies Allergy/AdvReac Type Severity Reaction Status Date / Time Penicillins Allergy Severe Anaphylaxis Verified 09/19/21 11:10 TRACE METALS Allergy itching,rachna Uncoded 09/19/21 11:10 h Physical Exam Vitals: Vital Signs Temp Pulse Pulse Resp BP Pulse Ox 09/21/21 14:45 100.0 F H 09/21/21 13:30 102.6 F H 118 H 26 H 139/75 100 09/21/21 09:51 16 09/21/21 09:08 88 09/21/21 08:50 92 09/21/21 08:00 99.1 F 104 H 16 127/75 97 09/21/21 05:00 97 09/21/21 01:30 98.8 F 92 16 129/68 100 09/20/21 21:59 105 H 09/20/21 20:01 108 H 09/20/21 20:00 108 H 22 09/20/21 19:40 80 09/20/21 19:31 79 09/20/21 18:35 98.6 F 115 H 22 115/67 97 09/20/21 16:04 79 09/20/21 15:53 78 Intake and Output 09/21/21 09/21/21 09/21/21 06:59 14:59 22:59 Output Total 0 Balance 0 Output: Urine 0 Other: Voiding Method Toilet Diaper GENERAL DESCRIPTION: An elderly female lying in bed, no distress. No tachypnea or accessory muscle of respiration use. HEENT: Shows Pallor , no scleral icterus. Oral mucous membrane is dry. No pharyngeal erythema or thrush NECK: Trachea central, no thyromegaly. LUNGS: Unlabored breathing. Decrease [place] the base. No wheeze or crackle. HEART: S1, S2, regular rate and rhythm. No loud murmur ABDOMEN: Soft, no tenderness , guarding or rigidity, no organomegaly EXTREMITIES: No edema of feet. SKIN: No rash, no masses palpable. NEUROLOGICAL: The patient is awake, alert, oriented x3, mood and affect normal. Results CBC & Chem 7: 09/29/21 06:26 09/30/21 06:45 Labs: Abnormal Lab Results - Last 24 Hours (Table) 09/20/21 09/20/21 09/21/21 Range/Units 16:37 20:22 05:32 WBC (4.50-10.00) X 10*3/uL RBC (4.10-5.20) X 10*6/uL Hgb (12.0-15.0) g/dL Hct (37.2-46.3) % MCV (80.0-97.0) fL MCHC (32.0-37.0) g/dL RDW (11.5-14.5) % Lymphocytes # (0.90-5.00) X 10*3/uL Chloride 113 H (98-107) mmol/L BUN 18 H (7-17) mg/dL Glucose 132 H (74-99) mg/dL POC Glucose (mg/dL) 209 H 252 H (70-110) mg/dL Calcium 8.3 L (8.4-10.2) mg/dL Crossmatch 09/21/21 09/21/21 09/21/21 Range/Units 05:32 07:27 10:05 WBC 4.41 L (4.50-10.00) X 10*3/uL RBC 2.31 L (4.10-5.20) X 10*6/uL Hgb 6.7 L* (12.0-15.0) g/dL Hct 23.3 L (37.2-46.3) % MCV 100.9 H (80.0-97.0) fL MCHC 28.8 L (32.0-37.0) g/dL RDW 16.7 H (11.5-14.5) % Lymphocytes # 0.68 L (0.90-5.00) X 10*3/uL Chloride (98-107) mmol/L BUN (7-17) mg/dL Glucose (74-99) mg/dL POC Glucose (mg/dL) 127 H (70-110) mg/dL Calcium (8.4-10.2) mg/dL Crossmatch See Detail 09/21/21 09/21/21 09/21/21 Range/Units 11:03 11:33 13:39 WBC (4.50-10.00) X 10*3/uL RBC 2.54 L (4.10-5.20) X 10*6/uL Hgb 7.9 L (12.0-15.0) g/dL Hct 25.3 L (37.2-46.3) % MCV (80.0-97.0) fL MCHC (32.0-37.0) g/dL RDW 16.8 H (11.5-14.5) % Lymphocytes # 0.5 L (0.90-5.00) X 10*3/uL Chloride (98-107) mmol/L BUN (7-17) mg/dL Glucose (74-99) mg/dL POC Glucose (mg/dL) 188 H 259 H (70-110) mg/dL Calcium (8.4-10.2) mg/dL Crossmatch Microbiology - Last 24 Hours (Table) 09/19/21 06:00 Blood Culture - Preliminary Blood No Growth after 48 hours 09/19/21 05:40 Blood Culture - Preliminary Blood No Growth after 48 hours 09/19/21 21:06 Blood Culture - Preliminary Blood No Growth after 24 hours Assessment and Plan (1) Left lower lobe pneumonia Status: Acute Code(s): J18.9 - PNEUMONIA, UNSPECIFIED ORGANISM SNOMED Code(s): 304605696 Plan: 1patient presented to hospital with increasing shortness of breath and this patient has [id number] hospital x-rays have been suspicious for left-sided effusion and possible atelectasis underlying pneumonia not entirely excluded especially in view of the new fever as the patient currently do not have any other obvious focus of infection abdominal soft ankle examination and no evidence of any cellulitis. 2we will try to obtain sputum for gram stain culture check a CRP and procalcitonin. 3continue with vancomycin however switch Rocephin to cefepime as the patient has been in and out of the hospital and will need to cover for resistant gram- negative. We will follow on clinical condition and cultures to further adjust medication if needed Thank you for this consultation will follow this patient along with you Time with Patient: Greater than 30
[2021-09-21] MEDS: CEFEPIME 2 GM in SODIUM CHLORIDE 0.9% 100 ML IVPB SCH (23:17)
[2021-09-22] MEDS: SODIUM CHLORIDE 0.9% 1,000 ML IV SCH (04:55)
--- NOTE | 2021-09-22 07:06 | XR ---
EXAMINATION TYPE: XR chest 1V portable DATE OF EXAM: 09/22/2021 COMPARISON: 09/21/2021 HISTORY: Shortness of breath TECHNIQUE: Single frontal view of the chest is obtained. FINDINGS: Heart is enlarged and there is bilateral lower lobe infiltrate and small effusion. Hypertr ophic and degenerative change of the spine. Diffuse osteopenia. Atherosclerotic change aorta. No pneu mothorax. IMPRESSION: Bilateral lower lobe infiltrate and small effusion greater on the left stable.
[2021-09-22 07:25] LABS: Glucose,Whole Blood 170 mg/dL (70-110)
[2021-09-22] MEDS: INSULIN ASPART (NovoLOG) 100 UNIT/ML VIAL SQ SCH ×4 (07:37→21:27)
[2021-09-22] MEDS: CYANOCOBALAMIN 500 MCG TAB PO SCH (07:38)
[2021-09-22] MEDS: APIXABAN 5 MG TAB PO SCH ×2 (07:38→21:25)
[2021-09-22] MEDS: PANTOPRAZOLE 40 MG TABLET PO SCH (07:38)
[2021-09-22] MEDS: CEFEPIME 2 GM in SODIUM CHLORIDE 0.9% 100 ML IVPB SCH ×2 (07:39→15:57)
[2021-09-22] MEDS: FUROSEMIDE 10 MG/ML 2 ML VIAL IV SCH ×2 (07:40→21:24)
[2021-09-22 09:38] LABS: Anisocytosis Slight; Basophils % (A) 0 %; Eosinophils # (A) 0.1 k/uL (0-0.7); Eosinophils % (A) 3 %; HCT 25.4 % (34.0-46.0); HGB 7.9 gm/dL (11.4-16.0); Hypochromasia Marked; Lymphocytes # (A) 0.6 k/uL (1.0-4.8); Lymphocytes % (A) 11 %; MCH 31.3 pg (25.0-35.0); MCV 100.7 fL (80.0-100.0); Macrocytosis Slight; Mean Platelet Volume 9.9; Monocytes # (A) 0.3 k/uL (0-1.0); Monocytes % (A) 6 %; Neutrophils # (A) 4.3 k/uL (1.3-7.7); Neutrophils % (A) 78 %; Platelet Count 214 k/uL (150-450); RBC 2.53 m/uL (3.80-5.40); RDW 16.1 % (11.5-15.5); WBC 5.5 k/uL (3.8-10.6)
[2021-09-22] MEDS: VANCOMYCIN 1,500 MG in SODIUM CHLORIDE 0.9% 250 ML IVPB SCH ×2 (09:50→11:58)
[2021-09-22 10:07] LABS: African American GFR (CKD) 75 (>60 ml/min/1.73 sqM); Anion Gap 4 mmol/L; Blood Urea Nitrogen 20 mg/dL (7-17); Calcium 8.2 mg/dL (8.4-10.2); Carbon Dioxide 24 mmol/L (22-30); Chloride 111 mmol/L (98-107); Glucose 172 mg/dL (74-99); Magnesium 1.5 mg/dL (1.6-2.3); Non-African American GFR(CKD) 65 (>60 ml/min/1.73 sqM); Potassium 4.3 mmol/L (3.5-5.1); Sodium 139 mmol/L (137-145)
[2021-09-22 10:31] LABS: C Reactive Protein 7.2 mg/dL (<1.0)
[2021-09-22] MEDS ORDERED: Magnesium Replacement Protocol 1 EACH MISC MISCELLANE PRN (10:37)
[2021-09-22 11:36] LABS: Glucose,Whole Blood 144 mg/dL (70-110)
[2021-09-22] MEDS: MAGNESIUM SULFATE-D5W PMX 1 GM in DEXTROSE/WATER 1 100ML.BAG IVPB SCH ×2 (12:04→14:33)
--- NOTE | 2021-09-22 12:16 | P.CRDCN ---
History of Present Illness History of present illness: HISTORY OF PRESENT ILLNESS: This is a 65-year-old female with a past medical history significant for Recent admission and transfer to [facility] 08/2021 with Acute renal failure s/p hemodialysis, severe thrombocytopenia and concern for TTP at that time did not require plasmapheresis, Typical atrial flutter (diagnosed at [facility] 08/2021) s/p MARIA ELENA/cardioversion on 09/03/21, hypertension, hyperlipidemia, COPD, obstructive sleep apnea, mild-non obstructive coronary artery disease and 2diabetes. Patient follows in the office with Dr. Aguilar. We have been asked to see the patient in consultation for shortness of breath and pericardial effusion. Patient presents to the emergency department with fever, worsening shortness of breath. She states she was discharged from [facility] 09/11/2021 to [facility] for physical therapy and was discharged home about 1 week ago. Night prior to admission, patient had worsening shortness of breath and was brought to the ER for further evaluation. She also was noted to have fevers and chills. She denied any chest pain, palpitations, weakness, dizziness, nausea, vomiting, syncope or near syncope. Records obtained from [facility]: Patient was initially transferred to [facility] due to concern for possible TTP. Patient was initially evaluated by Hematology, started on IV steroids, [id number] resulted within normal limits. Platelets improved, steroids were discontinued and hematology signed off. She did not require plasmapheresis. She underwent Temporary hemodialysis, creatinine level normalizied. She was extubated on 09/01/21. Renal biopsy was performed that revealed ATN. She developed atrial flutter with RVR, was initially started on Cardizem and MARIA ELENA/Cardioversion was performed on 09/03/21 restoring normal sinus rhythm. Patient was started on Eliquis. Patient was eventually transferred to inpatient rehab. DIAGNOSTICS: * EKG reveals sinus tachycardia, low qrs voltage * Chest CT- negative for PE. Moderate pericardial effusion noted. Moderate left pleural effusion. * Chest xray reporting bilateral lower lobe infiltrate. * Laboratory data: WBC 5.5, hemoglobin 7.9, platelets 214, sodium 139, potassium 4.3, BUN 20, serum crit 0.9, magnesium 1.5 * Current home cardiac medications include Eliquis 5 mg twice a day, albuterol, Protonix, 30 breath, trazodone, Ceftin * Echocardiogram 08/26/2021 revealed EF 5055 % trace aortic regurgitation, mild mitral regurgitation * Cardiac catheterization history: January 2019 revealing mild non-obstructive coronary artery disease and normal left ventricular end-diastolic pressure. Medical management was recommended. REVIEW OF SYSTEMS: At the time of my exam: CONSTITUTIONAL: Denies fever or chills. HEENT: Denies blurred vision, vision changes, or eye pain. Denies hemoptysis CARDIOVASCULAR: Denies chest pain. Denies orthopnea. Denies PND. Denies palpitations RESPIRATORY: Reports shortness of breath. GASTROINTESTINAL: Denies abdominal pain. Denies nausea or vomiting. HEMATOLOGIC: Denies bleeding disorders. GENITOURINARY: Denies any blood in urine. SKIN: Denies pruitis. Denies rash. PHYSICAL EXAM: VITAL SIGNS: Reviewed. GENERAL: Well-developed in no acute distress. HEENT: Head is normocephalic. Pupils are equal, round. Sclerae anicteric. Mucous membranes of the mouth are moist. Neck supple. No JVD LUNGS: Respirations even and unlabored. Lungs essentially clear to auscultation bilaterally. HEART: Regular rate and rhythm. S1 and S2 heard. ABDOMEN: Soft. Nondistended. Nontender. EXTREMITIES: Normal range of motion. No clubbing or cyanosis. Peripheral pulses intact. 1+ bilateral lower extremity edema NEUROLOGIC: Awake and alert. Oriented x 3. ASSESSMENT: Acute on chronic respiratory failure Moderate pleural effusion Moderate pericardial effusion Fever, Chills Possible pneumonia Recent admission and transfer to [facility] 08/2021 with Acute renal failure s/p hemodialysis, severe thrombocytopenia and concern for TTP at that time did not require plasmapheresis Typical atrial flutter (diagnosed at [facility] per records on 08/29/2021) s/p MARIA ELENA/cardioversion on 09/03/21, on Eliquis Hypertension Hyperlipidemia Diabetes, type 2 COPD Obstructive sleep apnea Mild non-obstructive coronary artery disease, per cardiac catheterization in 2019 PLAN: Obtain echo to evaluate pericardial effusion Check protein electrophoresis labs Hematology following, repeating hemolysis work up Pulmonary following Continue Eliquis Continue IV lasix at this time Monitor I/Os, daily weights, renal function and electrolytes May consider thoracentesis for diagnostic and theraputic purposes Further recommendations based on clinical course Nurse practitioner note has been reviewed by physician. Signing provider agrees with the documented findings, assessment, and plan of care. Past Medical History Past Medical History: Chest Pain / Angina, COPD, Diabetes Mellitus, GERD/Reflux, Hyperlipidemia, Hypertension, Osteoarthritis (OA), Skin Disorder, Sleep Apnea/CPAP/BIPAP Additional Past Medical History / Comment(s): Diagnosed with mild pancreatitis on 01/22/19, NIDDM type II, neuropathy bilateral hands/legs/feet, arthritis in multiple joints, bilateral carpal tunnel syndrome, gastric ulcer, ADRIANA-no longer uses device since wt loss, varicose veins, venous dermatitis. History of Any Multi-Drug Resistant Organisms: None Reported Past Surgical History: Adenoidectomy, Appendectomy, Bariatric Surgery, Cholecystectomy, Orthopedic Surgery, Tonsillectomy Additional Past Surgical History / Comment(s): 01/13/15 Lap laila en Y gastric bypass with lysis of adhesions, EGDs, colonoscopies, bilateral knee arthroscopy, bilateral knee replacements, D&C Past Anesthesia/Blood Transfusion Reactions: No Reported Reaction Additional Past Anesthesia/Blood Transfusion Reaction / Comment(s): Pt is slow to wake from anesthesia. She has received blood in past without reaction. Past Psychological History: Anxiety, Depression Additional Psychological History / Comment(s): Pt resides with her SO. She uses a cane and walker if needed. 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 Smoking Status: Former smoker Past Alcohol Use History: None Reported Additional Past Alcohol Use History / Comment(s): Pt started smoking in 1969 and quit smoking in 2009 Past Drug Use History: None Reported - Past Family History Mother Family Medical History: Cancer, Deep Vein Thrombosis (DVT) Additional Family Medical History / Comment(s): Mother had uterine cancer. Father Family Medical History: Congestive Heart Failure (CHF), Sleep Apnea/CPAP/BIPAP Additional Family Medical History / Comment(s): Father was an alcoholic. He of CHF at the age of 48yrs. Medications and Allergies Home Medications Medication Instructions Recorded Confirmed Type traZODone HCL [Desyrel] 100 mg PO HS 01/17/19 09/19/21 History Tiotropium 2.5 Mcg/Puff [Spiriva 2 puff INHALATION RT-DAILY 08/25/21 09/19/21 History Respimat 2.5 Mcg] Albuterol Sulfate [Albuterol 2 puff PO RT-Q6H PRN 09/19/21 09/19/21 History Sulfate Hfa] Apixaban [Eliquis] 5 mg PO BID 09/19/21 09/19/21 History Pantoprazole Sodium [Protonix] 40 mg PO DAILY 09/19/21 09/19/21 History cefUROXime axetiL [Ceftin] 500 mg PO BID 09/19/21 09/19/21 History Allergies Allergy/AdvReac Type Severity Reaction Status Date / Time Penicillins Allergy Severe Anaphylaxis Verified 09/19/21 11:10 TRACE METALS Allergy itching,rachna Uncoded 09/19/21 11:10 h Physical Exam Vitals: Vital Signs Temp Pulse Pulse Resp BP BP Pulse Ox 09/22/21 05:00 95 09/22/21 01:15 99.9 F H 98 20 105/58 100 09/21/21 23:18 99.0 F 100 18 105/58 95 09/21/21 22:17 104 H 16 107/71 97 09/21/21 21:21 99.7 F H 09/21/21 19:10 101.7 F H 109 H 20 120/60 100 09/21/21 14:45 100.0 F H 09/21/21 13:30 102.6 F H 118 H 26 H 139/75 100 09/21/21 09:51 16 09/21/21 09:08 88 09/21/21 08:50 92 09/21/21 08:00 99.1 F 104 H 16 127/75 97 Intake and Output 09/21/21 09/22/21 09/22/21 22:59 06:59 14:59 Intake Total 1080 Output Total 700 250 Balance 380 -250 Intake: Oral 1080 Output: Urine 700 250 Other: Voiding Method External Catheter # Voids 3 Results 09/22/21 09:18 09/22/21 09:18 Cardiac Enzymes 09/21/21 Range/Units 05:32 Lactate Dehydrogenase 274 H (120-246) U/L CBC 09/21/21 09/21/21 Range/Units 05:32 11:03 WBC 4.41 L 5.5 (4.50-10.00) X 10*3/uL RBC 2.31 L 2.54 L (4.10-5.20) X 10*6/uL Hgb 6.7 L* 7.9 L (12.0-15.0) g/dL Hct 23.3 L 25.3 L (37.2-46.3) % Plt Count 154 182 (140-440) X 10*3/uL Current Medications Generic Name Dose Route Start Last Admin Trade Name Freq PRN Reason Stop Dose Admin Acetaminophen 650 mg 09/19/21 20:55 09/21/21 20:08 Acetaminophen Tab 325 Mg Tab PO 650 mg Q6HR PRN Administration Fever and/ or Pain Albuterol/Ipratropium 3 ml 09/19/21 10:32 09/21/21 08:49 Ipratropium-Albuterol 3 Ml Neb INHALATION 3 ml RT-QID PRN Administration Shortness Of Breath Or Wheezing Apixaban 5 mg 09/21/21 09:00 09/21/21 20:08 Apixaban 5 Mg Tab PO 10/13/21 09:00 5 mg BID JAQUELINE Administration Protocol Cyanocobalamin 1,000 mcg 09/22/21 09:00 Cyanocobalamin 500 Mcg Tab PO DAILY JAQUELINE Furosemide 40 mg 09/21/21 21:00 09/21/21 20:06 Furosemide 10 Mg/Ml 2 Ml Vial IV Not Given BID JAQUELINE Sodium Chloride 1,000 mls @ 20 mls/hr 09/19/21 05:15 09/22/21 04:55 Saline 0.9% IV 20 mls/hr .Q24H JAQUELINE Administration Vancomycin HCl 1,500 mg/ 250 mls @ 125 mls/hr 09/19/21 18:00 09/21/21 18:04 Sodium Chloride IVPB 125 mls/hr Q16H JAQUELINE Administration Cefepime HCl 2 gm/ Sodium 100 mls @ 25 mls/hr 09/22/21 00:00 09/21/21 23:17 Chloride IVPB 25 mls/hr Q8HR JAQUELINE Administration Protocol Insulin Aspart 0 unit 09/19/21 08:15 09/21/21 20:56 Insulin Aspart (Novolog) 100 Unit/Ml Vial SQ 3 unit ACHS JAQUELINE Administration Protocol Miscellaneous Information 1 each 09/19/21 05:09 Pneumonia Protocol Utilized 1 Each Misc PO ONCE PRN Per Protocol Ondansetron HCl 4 mg 09/20/21 17:02 09/20/21 17:17 Ondansetron 4 Mg/2 Ml Vial IVP 4 mg Q6HR PRN Administration Nausea And Vomiting Pantoprazole Sodium 40 mg 09/20/21 07:30 09/21/21 07:54 Pantoprazole 40 Mg Tablet PO 40 mg [id number] JAQUELINE Administration Trazodone HCl 100 mg 09/19/21 22:30 09/21/21 20:08 Trazodone Hcl 100 Mg Tab PO 100 mg HS JAQUELINE Administration Intake and Output 09/21/21 09/22/21 09/22/21 22:59 06:59 14:59 Intake Total 1080 Output Total 700 250 Balance 380 -250 Intake: Oral 1080 Output: Urine 700 250 Other: Voiding Method External Catheter # Voids 3 09/21/21 11:03 09/21/21 05:32
--- NOTE | 2021-09-22 13:17 | CA ---
Transthoracic Echo Report Name: Samantha Priest Age: 66 Gender: F : 1955 Exam Date: 09/22/2021 08:32 Exam Location: [place] [facility] Ht (in): 66 Wt (lb): 190 Ordering Physician: Shruti Richards Attending/Referring Phys: Railroad Brake Repairer Dottie Pereyra RDCS Procedure CPT: Indications: evaluate pericardial effusion Cardiac Hx: Technical Quality: Good Contrast 1: Total Dose (mL): Contrast 2: Total Dose (mL): MEASUREMENTS (Male / Female) Normal Values FINDINGS Left Ventricle Left ventricular ejection fraction is estimated at 55-60 %. Right Ventricle Right Atrium Left Atrium Mitral Valve Aortic Valve Tricuspid Valve Pulmonic Valve Pericardium Moderate to large pericardial effusion with clot formation. Aorta CONCLUSIONS Normal left ventricular ejection fraction 55-60% Large circumferential pericardial effusion measuring 2.5 cm with thrombus formation in the pericardial effusion. No diastolic collapse or findings of cardiac tamponade. Previewed by: Dr. Bobby Case DO (Electronically Signed) Final Date: 22 September 2021 13:16
--- NOTE | 2021-09-22 13:18 | P.PN ---
Subjective Progress Note Date: 09/22/21 Principal diagnosis: Shortness of breath The patient is a 66-year-old white female with multiple medical problems. She was recently seen in consult when admitted on 08/25/21, with acute kidney injury, anemia, and low platelets in the 20,000 range. The patient had low haptoglobin and elevated LDH. Pathologist review mentioned scattered RBC fragments. The patient was transferred to [facility] for plasmapheresis for presumed TTP. Her ADAMTS 13 however came back in the normal range. The patient was discharged home from [facility], and readmitted because of shortness of breath starting overnight. She was found to have left lower lobe infiltrate with associated small effusion. The patient denies having any chest pain. The patient denies having any cough sputum production chest tightness or wheezing. No fever or chills. Note that the patient was released from [facility] while being on anticoagulation with Eliquis. The white cell count of 5.5 with hemoglobin of 7.9 and platelet count of 182. As such, the hematologic profile is essentially improved. Creatinine is at 0.8 with a BUN of 18 and the sodium level of 138. Pro-calcitonin level is at 0.08. She has chronic edema lower extremities bilaterally. Previous echocardiogram that showed a preserved LV function. Previous Doppler of the lower extremities have shown no evidence of any DVTs. Previous CT scan of the chest has shown a borderline aneurysm of the ascending aorta. Lungs are essentially clear. The patient has been started on antibiotics empirically and the patient is currently on IV Rocephin and vancomycin. On 09/22/2021 patient seen in follow-up on medical surgical floor. Patient states she continues to have exertional dyspnea, she is currently on 4 L of oxygen satting 97%. Afebrile, hemodynamics are stable, and a complete chest discomfort, lung sounds reveal diminished breath sounds at the bases, her chest x-ray on admission showed left pleural effusion and left lower lobe infiltrate, cardiomegaly. Follow-up chest x-ray showed persistent left basilar infiltrate and left pleural effusion, the right lung was clear. ProBNP level was 993, single set of troponin was negative. Patient was tested for COVID-19 and was negative, progesterone level is negative at 0.08. CTA chest showed no evidence of central pulmonary embolism, and moderate pericardial effusion. Patient has been started on IV diuretics at 20 mg of Lasix twice daily. She is diuresing, although today's weight is not recorded. Today's labs have been reviewed, white blood cell count is 5.5, hemoglobin is 7.9, sodium is 139, potassium is 4.3, chloride is 111, B1 is 20, creatinine 0.92. Urine Legionella antigen was negative. Echocardiogram has been ordered and pending at this time. Objective - Vital Signs Vital signs: Vital Signs Temp 98.6 F 09/22/21 08:00 Pulse 99 09/22/21 08:00 Resp 18 09/22/21 08:00 BP 117/75 09/22/21 08:00 Pulse Ox 97 09/22/21 10:30 FiO2 Intake & Output 09/21/21 09/22/21 09/22/21 18:59 06:59 18:59 Intake Total 1080 Output Total 358 421 7523 Balance 880 -750 -1100 Intake: Oral 1080 Output: Urine 228 795 8733 Other: Voiding Method Toilet External Catheter Diaper # Voids 3 - Exam GENERAL EXAM: Alert, very pleasant, 66 y.o. on 4 l/min satting 100 %, comfor table in no apparent distress. HEAD: Normocephalic/atraumatic. EYES: Normal reaction of pupils, equal size. Conjunctiva pink, sclera white. NOSE: Clear with pink turbinates. THROAT: No erythema or exudates. NECK: No masses, no JVD, no thyroid enlargement, no adenopathy. CHEST: No chest wall deformity. Symmetrical expansion. LUNGS: Equal air entry with no crackles, wheeze, rhonchi or dullness. CVS: Regular rate and rhythm, normal S1 and S2, no gallops, no murmurs, no rubs ABDOMEN: Soft, nontender. No hepatosplenomegaly, normal bowel sounds, no guarding or rigidity. EXTREMITIES: No clubbing, no edema, no cyanosis, 2+ pulses and upper and lower extremities. MUSCULOSKELETAL: Muscle strength and tone normal. SPINE: No scoliosis or deformity SKIN: No rashes CENTRAL NERVOUS SYSTEM: Alert and oriented -3. No focal deficits, tone is normal in all 4 extremities. PSYCHIATRIC: Alert and oriented -3. Appropriate affect. Intact judgment and insight. - Labs CBC & Chem 7: 09/22/21 09:18 09/22/21 09:18 Labs: Abnormal Lab Results - Last 24 Hours (Table) 07/18/22 07/18/22 07/18/22 Range/Units 05:32 10:05 11:30 RBC (3.80-5.40) m/uL Hgb (11.4-16.0) gm/dL Hct (34.0-46.0) % MCV (80.0-100.0) fL RDW (11.5-15.5) % Lymphocytes # (1.0-4.8) k/uL Retic Count 4.4 H (0.5-2.0) % Chloride (98-107) mmol/L BUN (7-17) mg/dL Glucose (74-99) mg/dL POC Glucose (mg/dL) (70-110) mg/dL Calcium (8.4-10.2) mg/dL Magnesium (1.6-2.3) mg/dL Lactate Dehydrogenase 274 H (120-246) U/L C-Reactive Protein (<1.0) mg/dL Crossmatch See Detail 09/21/21 09/21/21 09/21/21 Range/Units 13:39 16:36 20:43 RBC (3.80-5.40) m/uL Hgb (11.4-16.0) gm/dL Hct (34.0-46.0) % MCV (80.0-100.0) fL RDW (11.5-15.5) % Lymphocytes # (1.0-4.8) k/uL Retic Count (0.5-2.0) % Chloride (98-107) mmol/L BUN (7-17) mg/dL Glucose (74-99) mg/dL POC Glucose (mg/dL) 259 H 307 H 242 H (70-110) mg/dL Calcium (8.4-10.2) mg/dL Magnesium (1.6-2.3) mg/dL Lactate Dehydrogenase (120-246) U/L C-Reactive Protein (<1.0) mg/dL Crossmatch 09/22/21 09/22/21 09/22/21 Range/Units 07:23 09:18 09:18 RBC 2.53 L (3.80-5.40) m/uL Hgb 7.9 L (11.4-16.0) gm/dL Hct 25.4 L (34.0-46.0) % MCV 100.7 H (80.0-100.0) fL RDW 16.1 H (11.5-15.5) % Lymphocytes # 0.6 L (1.0-4.8) k/uL Retic Count (0.5-2.0) % Chloride 111 H (98-107) mmol/L BUN 20 H (7-17) mg/dL Glucose 172 H (74-99) mg/dL POC Glucose (mg/dL) 170 H (70-110) mg/dL Calcium 8.2 L (8.4-10.2) mg/dL Magnesium 1.5 L (1.6-2.3) mg/dL Lactate Dehydrogenase (120-246) U/L C-Reactive Protein 7.2 H (<1.0) mg/dL Crossmatch 09/22/21 Range/Units 11:34 RBC (3.80-5.40) m/uL Hgb (11.4-16.0) gm/dL Hct (34.0-46.0) % MCV (80.0-100.0) fL RDW (11.5-15.5) % Lymphocytes # (1.0-4.8) k/uL Retic Count (0.5-2.0) % Chloride (98-107) mmol/L BUN (7-17) mg/dL Glucose (74-99) mg/dL POC Glucose (mg/dL) 144 H (70-110) mg/dL Calcium (8.4-10.2) mg/dL Magnesium (1.6-2.3) mg/dL Lactate Dehydrogenase (120-246) U/L C-Reactive Protein (<1.0) mg/dL Crossmatch Microbiology - Last 24 Hours (Table) 09/19/21 06:00 Blood Culture - Preliminary Blood No Growth after 72 hours 09/19/21 05:40 Blood Culture - Preliminary Blood No Growth after 72 hours 09/19/21 21:06 Blood Culture - Preliminary Blood No Growth after 48 hours Assessment and Plan Plan: Assessment: Left sided pleural effusion, under investigation. indication for an underlying pneumonia. The patient is currently covered with a combination of Rocephin and vancomycin. Nevertheless, she is not acting toxic or septic and the pro- calcitonin level has been quite low. Acute on chronic dyspnea, under investigation Leg edema, chronic with episodic cellulitis involving lower extremity is bilaterally COPD, which appears to be stable Acute kidney injury, secondary to ATN/hypotension recovered Thrombocytopenia, recovered History of diabetes mellitus with diabetic neuropathy. History of sleep apnea syndrome, currently not on CPAP. History of gastroesophageal reflux disease. History of hypertension. History of hyperlipidemia. History of mild pancreatitis. History of arthritis. Prior history of Chinedu-en-Y bariatric surgery for obesity. Mild ascending aortic aneurysm Plan: Continue IV diuretics Echocardiogram is ordered and pending Follow-up chest x-ray in the morning Intake and output, daily weights We'll discontinue vancomycin, continue cefepime We'll continue to follow I have personally seen and examined the patient and reviewed the documentation. I performed a joint evaluation with the nurse practitioner in this evaluation was done more than 20 minutes. I fully agree with the documentation above and the plan of care.. This is a joint evaluation that was done along with nurse practitioner. The patient is clinically improving. Computed tomography scan of the chest was noted. No evidence of any pulmonary embolism. There is a left- sided pleural effusion and the patient responded to diuresis. We'll do a thoracentesis of the left lung with the next 24 hours if no improvement. Echo was ordered. Vancomycin was discontinued. Time with Patient: Less than 30
[2021-09-22 14:36] LABS: Protein, Total 5.7 g/dL (6.2-8.2)
[2021-09-22] MEDS: ACETAMINOPHEN TAB 325 MG TAB PO PRN (16:02)
[2021-09-22 16:55] LABS: Glucose,Whole Blood 270 mg/dL (70-110)
--- NOTE | 2021-09-22 19:19 | P.PN ---
Subjective Progress Note Date: 09/22/21 Patient is a 66-year-old female with a known history of hypertension, hyperlipidemia, diabetes type 2, obstructive sleep apnea not on CPAP at home, bilateral diabetic peripheral neuropathy, anxiety and depression and prior history of smoking presents to ER with complaints of shortness of breath. Patient does have cough without any sputum production. Was also anxious on admission. No fever no chills. Patient was recently discharged from the hospital on 08/27/2021 and was transferred to [facility] for possible TTP and plasmapheresis. Was admitted to the hospital due to acute kidney injury and altered mental status and found to have schistocytes in the peripheral smear and was seen by matology. Due to severe thrombocytopenia patient was transferred to [facility] for plasmapheresis and also worsening renal function. Patient was discharged to [facility] for physical therapy. Patient was discharged home about a week ago. Last night patient developed shortness of breath and could not breathe. Patient's fianc brought her to the hospital. On admission blood pressure 164/77 pulse is 69 respiration 24 and pulse ox 94% on room air. Laboratory showed WBC 5.2 hemoglobin 8.4 and platelets 147 Sodium 139 potassium 3.7 chloride 108 bicarb is 23 BUN 23 and creatinine 0.84 and blood sugar is 220 Liver enzymes are not elevated proBNP 993 TSH 3.38 and coronavirus PCR not detected. Chest x-ray showed there is left pleural effusion and left lower lobe infiltrate which are new compared to old exam. No heart failure seen. Cardiomegaly. EKG showed sinus tachycardia and low QRS voltage. Patient was transferred to [facility] due to concern for possible TTP. Patient was evaluated by oncology and he was placed on steroids. Further work- up was performed she apparently did not require plasmapheresis. Patient developed acute kidney injury and requiring temporary hemodialysis and her creatinine peaked at 4.8. She was last hemodialyzed on 09/07/2021. He with creatinine level was normalized. Patient was also requiring intubation and [facility] anical ventilator due to altered mental status and encephalopathy and also treated for hyponatremia. Patient was successfully extubated. While here she was at [facility] she developed new onset atrial fibrillation with RVR and was started on Cardizem patient was successfully cardioverted. Patient is maintaining sinus rhythm. Patient was also started on Eliquis and also treated for NSTEMI. 2D echocardiogram during hospitalization showed left ventricular ejection fraction 60 to 65%. Steroids were later stopped by hematology. She has to be on Eliquis for 30 days and then anticoagulation needs to be discontinued. Patient was eventually transferred to inpatient rehab at [facility]. 09/20/2021 Patient is currently resting in the bed. Awake alert oriented x3. Breathing status is much better. Continue on duo nebs. No complaints of chest pain. No nausea vomiting abdominal pain or diarrhea. Patient is being continued on antibiotics for possible pneumonia Overnight T-max was 100.4. Currently afebrile. Laboratory showed WBC 3.74 hemoglobin 7.1 platelets 123 Sodium 141 potassium 4.0 chloride 110 bicarb is 20.4 BUN 20.5 and creatinine 0.8 and blood sugar is 1 4010 calcium 8.0 blood sugar is better controlled. Patient is tolerating oral diet. Chest x-ray showed persistent left basilar infiltrate and/or/effusion. Right lung is clear. 09/21/2021 Patient is seen and evaluated in follow-up this morning currently sitting up at the side of the bed extremely weak requiring 2 person assist to get up although ambulating with a walker and standby assistance. Patient continues to have some shortness of breath with exertion although maintained on 1 liter of 02 currently. Patient appears working to breathe. Patient hemoglobin was low this am and sent to [facility] with some hemolysis and a stat cbc has been reordered. Pulmonary and cardiology consulted. Chest xray ordered. Patient did receive a dose of IV lasix today. Labs pending repeat. Patient also continues with fevers and is maintained on IV abx and will consult infectious disease. 09/22/2021 Patient is seen today and was maintaining oxygen saturation of 100% on 4L and weaning as tolerated. Patient is noted to remove her oxygen often while sitting up in the chair. Patient is less dyspneic during conversation. Patient is currently afebrile and is maintained on IV antibiotic therapy in the form of cefepime with ID following. Pleural effusions noted and patient is diuresing with IV lasix. Kidney functions stable. Patient for possible thoracentesis with pulmonary if respiratory status declines. Patient continues to be anxious with episodes of shortness of breath. Encouraged incentive spirometer use and continued cough and deep breathing. Patient denies chest pain or palpitations. Cardiology following as well. Review of systems: Constitutional: no reports of fatigue, no reports of fever, or chills Cardiovascular: No reports of chest pain or palpitations Respiratory: reports of shortness of breath although reports feeling improved, no reports of cough GI: No reports of nausea, vomiting, or diarrhea : No reports of dysuria or retention Neurovascular: reports of generalized weakness All medications have been reviewed Active Medications Acetaminophen (Acetaminophen Tab 325 Mg Tab) 650 mg PO Q6HR PRN PRN Reason: Fever and/ or Pain Last Admin: 09/22/21 16:02 Dose: 650 mg Albuterol/Ipratropium (Ipratropium-Albuterol 3 Ml Neb) 3 ml INHALATION RT-QID PRN PRN Reason: Shortness Of Breath Or Wheezing Last Admin: 09/21/21 08:49 Dose: 3 ml Apixaban (Apixaban 5 Mg Tab) 5 mg PO BID [facility]; Protocol Stop: 10/13/21 09:00 Last Admin: 09/22/21 07:38 Dose: 5 mg Cyanocobalamin (Cyanocobalamin 500 Mcg Tab) 1,000 mcg PO DAILY [facility] Last Admin: 09/22/21 07:38 Dose: 1,000 mcg Furosemide (Furosemide 10 Mg/Ml 2 Ml Vial) 40 mg IV BID JAQUELINE Last Admin: 09/22/21 07:40 Dose: 40 mg Sodium Chloride (Saline 0.9%) 1,000 mls @ 20 mls/hr IV .Q24H [facility] Last Admin: 09/22/21 04:55 Dose: 20 mls/hr Cefepime HCl 2 gm/ Sodium (Chloride) 100 mls @ 25 mls/hr IVPB Q8HR [facility]; Protocol Last Admin: 09/22/21 15:57 Dose: 25 mls/hr Insulin Aspart (Insulin Aspart (Novolog) 100 Unit/Ml Vial) 0 unit SQ ACHS JAQUELINE; Protocol Last Admin: 09/22/21 17:04 Dose: 4 unit Miscellaneous Information (Pneumonia Protocol Utilized 1 Each Misc) 1 each PO ONCE PRN PRN Reason: Per Protocol Miscellaneous Information (Magnesium Replacement Protocol 1 Each Misc) 1 each MISCELLANE DAILY PRN; Protocol PRN Reason: Per Protocol Ondansetron HCl (Ondansetron 4 Mg/2 Ml Vial) 4 mg IVP Q6HR PRN PRN Reason: Nausea And Vomiting Last Admin: 09/20/21 17:17 Dose: 4 mg Pantoprazole Sodium (Pantoprazole 40 Mg Tablet) 40 mg PO AC-[id number] [facility] Last Admin: 09/22/21 07:38 Dose: 40 mg Trazodone HCl (Trazodone Hcl 100 Mg Tab) 100 mg PO [facility] Last Admin: 09/21/21 20:08 Dose: 100 mg Physical exam: Patient is sitting up in the chair comfortably, no acute distress, awake alert and oriented.. HEENT: Normocephalic. Neck is supple. Pupils reactive. Nostrils clear. Oral cavity is moist. Neck reveals no JVD, carotid bruits, or thyromegaly. CHEST EXAMINATION: Trachea is central. Symmetrical expansion. diminished sounds bilaterally and minimal right basilar crackles. No wheezing. less labored breathing on todays exam CARDIAC: Normal S1, S2 with no gallops. No murmurs ABDOMEN: Soft. Bowel sounds present. Nontender. No organomegaly. No abdominal bruits. Extremities: Bilateral trace edema. No clubbing or cyanosis Neurologically awake, alert, oriented x3 with well-coordinated movements. diffuse weakness noted Skin: No rash or skin lesions. Psychiatric: Cooperative. Non-suicidal, less anxious. Musculoskeletal: No joint swelling or deformity. Normal range of motion. Assessment: Left lower lobe infiltrate/pneumonia. Possible healthcare associated. Recent admission with [facility] requiring HD, A fib, NSTEMI ,thrombocytopenia/TTP and was transferred to [facility] on 08/27/2021 Acute COPD exacerbation. pleural effusions and some possible pericardial effusion noted on CTA Normocytic anemia with hemoglobin level 8.4 and thrombocytopenia Hypertension Hyperlipidemia GERD Diabetes type 2 [id number] Diabetic peripheral neuropathy bilateral Obstructive sleep apnea not using any CPAP at home currently Borderline aneurysm of the ascending aorta Anxiety/depression Prior history of smoking DVT prophylaxis GI prophylaxis Full code Plan: Patient is maintained on antibiotics in the form of cefepime for pneumonia and pulmonary and ID following. Cardiology consulted as well and pending. Recommend to continue with IV diuresis and follow up labs and chest x-ray in the a.m. Pulmonary following and discussing possible thoracentesis if continuing to be short of breath. PT/OT to evaluate the patient Recommend to continue using incentive spirometer at least 10 times every hour while awake. Due to multiple complex medical issues, prognosis is guarded The impression and plan of care has been dictated by Taina Yuen, Nurse Practitioner as directed. Dr. Yesica MD I have performed a history and examination and MDM of this patient, discussed the same with the dictator, and agree with the dictator's assessment and plan as written ,documented as a scribe. Based on total visit time, I have performed more than 50% of the visit. Objective - Vital Signs Vital signs: Vital Signs Temp 98.6 F 09/22/21 08:00 Pulse 99 09/22/21 08:00 Resp 18 09/22/21 08:00 BP 117/75 09/22/21 08:00 Pulse Ox 100 09/22/21 08:00 FiO2 Intake & Output 09/21/21 09/22/21 09/22/21 18:59 06:59 18:59 Intake Total 1080 Output Total 200 750 Balance 880 -750 Intake: Oral 1080 Output: Urine 200 750 Other: Voiding Method Toilet External Catheter Diaper # Voids 3 - Labs CBC & Chem 7: 09/22/21 09:18 09/22/21 09:18 Labs: Abnormal Lab Results - Last 24 Hours (Table) 09/21/21 09/21/21 09/21/21 Range/Units 05:32 10:05 11:03 RBC 2.54 L (3.80-5.40) m/uL Hgb 7.9 L (11.4-16.0) gm/dL Hct 25.3 L (34.0-46.0) % MCV (80.0-100.0) fL RDW 16.8 H (11.5-15.5) % Lymphocytes # 0.5 L (1.0-4.8) k/uL Retic Count (0.5-2.0) % Chloride (98-107) mmol/L BUN (7-17) mg/dL Glucose (74-99) mg/dL POC Glucose (mg/dL) (70-110) mg/dL Calcium (8.4-10.2) mg/dL Magnesium (1.6-2.3) mg/dL Lactate Dehydrogenase 274 H (120-246) U/L C-Reactive Protein (<1.0) mg/dL Crossmatch See Detail 09/21/21 09/21/21 09/21/21 Range/Units 11:30 11:33 13:39 RBC (3.80-5.40) m/uL Hgb (11.4-16.0) gm/dL Hct (34.0-46.0) % MCV (80.0-100.0) fL RDW (11.5-15.5) % Lymphocytes # (1.0-4.8) k/uL Retic Count 4.4 H (0.5-2.0) % Chloride (98-107) mmol/L BUN (7-17) mg/dL Glucose (74-99) mg/dL POC Glucose (mg/dL) 188 H 259 H (70-110) mg/dL Calcium (8.4-10.2) mg/dL Magnesium (1.6-2.3) mg/dL Lactate Dehydrogenase (120-246) U/L C-Reactive Protein (<1.0) mg/dL Crossmatch 09/21/21 09/21/21 09/22/21 Range/Units 16:36 20:43 07:23 RBC (3.80-5.40) m/uL Hgb (11.4-16.0) gm/dL Hct (34.0-46.0) % MCV (80.0-100.0) fL RDW (11.5-15.5) % Lymphocytes # (1.0-4.8) k/uL Retic Count (0.5-2.0) % Chloride (98-107) mmol/L BUN (7-17) mg/dL Glucose (74-99) mg/dL POC Glucose (mg/dL) 307 H 242 H 170 H (70-110) mg/dL Calcium (8.4-10.2) mg/dL Magnesium (1.6-2.3) mg/dL Lactate Dehydrogenase (120-246) U/L C-Reactive Protein (<1.0) mg/dL Crossmatch 09/22/21 09/22/21 Range/Units 09:18 09:18 RBC 2.53 L (3.80-5.40) m/uL Hgb 7.9 L (11.4-16.0) gm/dL Hct 25.4 L (34.0-46.0) % MCV 100.7 H (80.0-100.0) fL RDW 16.1 H (11.5-15.5) % Lymphocytes # 0.6 L (1.0-4.8) k/uL Retic Count (0.5-2.0) % Chloride 111 H (98-107) mmol/L BUN 20 H (7-17) mg/dL Glucose 172 H (74-99) mg/dL POC Glucose (mg/dL) (70-110) mg/dL Calcium 8.2 L (8.4-10.2) mg/dL Magnesium 1.5 L (1.6-2.3) mg/dL Lactate Dehydrogenase (120-246) U/L C-Reactive Protein 7.2 H (<1.0) mg/dL Crossmatch Microbiology - Last 24 Hours (Table) 09/19/21 06:00 Blood Culture - Preliminary Blood No Growth after 72 hours 09/19/21 05:40 Blood Culture - Preliminary Blood No Growth after 72 hours 09/19/21 21:06 Blood Culture - Preliminary Blood No Growth after 48 hours
[2021-09-22] MEDS: IPRATROPIUM-ALBUTEROL 3 ML NEB INHALATION PRN (20:28)
[2021-09-22 21:11] LABS: Glucose,Whole Blood 168 mg/dL (70-110)
[2021-09-22] MEDS: traZODone HCL 100 MG TAB PO SCH (21:25)
[2021-09-23] MEDS: CEFEPIME 2 GM in SODIUM CHLORIDE 0.9% 100 ML IVPB SCH ×4 (00:32→23:59)
[2021-09-23 07:09] LABS: Glucose,Whole Blood 159 mg/dL (70-110)
[2021-09-23] MEDS: ACETAMINOPHEN TAB 325 MG TAB PO PRN (07:27)
[2021-09-23] MEDS: IPRATROPIUM-ALBUTEROL 3 ML NEB INHALATION PRN ×2 (08:00→21:21)
--- NOTE | 2021-09-23 08:20 | XR ---
EXAMINATION TYPE: XR chest 1V portable DATE OF EXAM: 09/23/2021 HISTORY: Shortness of breath. COMPARISON: 09/22/2021 TECHNIQUE: Single view of the chest is submitted. FINDINGS: Demonstrated are scattered senescent parenchymal change. Left lower lobe infiltrate, atelectasis and/or effusion is unchanged. Continued cardiomegaly with mild pulmonary venous congestion. Hilar and mediastinal structures are within normal limits. Degenerative changes are seen of the dorsal spine. IMPRESSION: 1. Left lower lobe infiltrate, atelectasis and/or effusion is unchanged.
[2021-09-23] MEDS: CYANOCOBALAMIN 500 MCG TAB PO SCH (09:03)
[2021-09-23] MEDS: PANTOPRAZOLE 40 MG TABLET PO SCH (09:03)
[2021-09-23] MEDS: INSULIN ASPART (NovoLOG) 100 UNIT/ML VIAL SQ SCH ×4 (09:04→21:37)
[2021-09-23] MEDS: APIXABAN 5 MG TAB PO SCH (09:04)
[2021-09-23] MEDS: FUROSEMIDE 10 MG/ML 2 ML VIAL IV SCH ×2 (09:05→21:36)
[2021-09-23] MEDS: SODIUM CHLORIDE 0.9% 1,000 ML IV SCH (09:05)
[2021-09-23 09:35] LABS: African American GFR (CKD) 76 (>60 ml/min/1.73 sqM); Anion Gap 2 mmol/L; Blood Urea Nitrogen 23 mg/dL (7-17); Calcium 8.2 mg/dL (8.4-10.2); Carbon Dioxide 25 mmol/L (22-30); Chloride 110 mmol/L (98-107); Glucose 139 mg/dL (74-99); Non-African American GFR(CKD) 65 (>60 ml/min/1.73 sqM); Sodium 137 mmol/L (137-145)
--- NOTE | 2021-09-23 10:55 | P.PN ---
Subjective This is a 65-year-old female with a past medical history significant for Recent admission and transfer to [facility] 08/2021 with Acute renal failure s/p hemodialysis, severe thrombocytopenia and concern for TTP at that time did not require plasmapheresis, Typical atrial flutter (diagnosed at [facility] 08/2021) s/p MARIA LEENA/cardioversion on 09/03/21, hypertension, hyperlipidemia, COPD, obstructive sleep apnea, mild-non obstructive coronary artery disease and 2diabetes. Patient follows in the office with Dr. Aguilar. We have been asked to see the patient in consultation for shortness of breath and pericardial effusion. Patient presents to the emergency department with fever, worsening shortness of breath. She states she was discharged from [facility] 09/11/2021 to [facility] for physical therapy and was discharged home about 1 week ago. Night prior to admission, patient had worsening shortness of breath and was brought to the ER for further evaluation. She also was noted to have fevers and chills. Records obtained from [facility]: Patient was initially transferred to [facility] due to concern for possible TTP. Patient was initially evaluated by Hematology, started on IV steroids, [id number] resulted within normal limits. Platelets improved, steroids were discontinued and hematology signed off. She did not require plasmapheresis. She underwent Temporary hemodialysis, creatinine level normalizied. She was extubated on 09/01/21. Renal biopsy was performed that revealed ATN. She developed atrial flutter with RVR, was initially started on Cardizem and MARIA ELENA/Cardioversion was performed on 09/03/21 restoring normal sinus rhythm. Patient was started on Eliquis. Patient was eventually transferred to inpatient rehab. 09/23/2021 Patient seen and examined at bedside, no distress. Her breathing has slightly improved. Denies any chest pain or palpitations. I/Os revealed -2450mL output over the past 24 hours. Labs: Sodium 137, potassium 4.0, BUN 23, serum crit 0.9, magnesium 1.8 Echocardiogram revealed EF of 5560%, large circumferential pericardial effusion measuring 2.5 cm with thrombus formation the pericardial effusion. No diastolic collapse or findings of cardiac tamponade PHYSICAL EXAM: VITAL SIGNS: Reviewed. GENERAL: Well-developed in no acute distress. HEENT: Head is normocephalic. Mucous membranes of the mouth are moist. Neck supple. No JVD LUNGS: Respirations even and unlabored. Lungs essentially clear to auscultation bilaterally. HEART: Regular rate and rhythm. S1 and S2 heard. ABDOMEN: Soft. Nondistended. Nontender. EXTREMITIES: Normal range of motion. No clubbing or cyanosis. Peripheral pulses intact. moderate bilateral lower extremity edema NEUROLOGIC: Awake and alert. Oriented x 3. ASSESSMENT: Acute on chronic respiratory failure Moderate pleural effusion Large pericardial effusion with 2.5cm thrombus formation in the pericardial effusion noted on echo no evidence of tamponade Fever, Chills Possible pneumonia Recent admission and transfer to [facility] 08/2021 with Acute renal failure s/p hemodialysis, severe thrombocytopenia and concern for TTP at that time did not require plasmapheresis Typical atrial flutter (diagnosed at [facility] per records on 08/29/2021) s/p MARIA ELENA/cardioversion on 09/03/21, on Eliquis Hypertension Hyperlipidemia Diabetes, type 2 COPD Obstructive sleep apnea Mild non-obstructive coronary artery disease, per cardiac catheterization in 2019 PLAN: Continue IV lasix at this time Repeat limited echocardiogram on Tuesday May consider thoracentesis for diagnostic and therapeutic purposes Hematology following, repeating hemolysis work up Pulmonary following Monitor I/Os, daily weights, renal function and electrolytes Further recommendations based on clinical course Nurse practitioner note has been reviewed by physician. Signing provider agrees with the documented findings, assessment, and plan of care. Objective - Vital Signs Vital signs: Vital Signs Temp 98.0 F 09/23/21 07:19 Pulse 100 09/23/21 08:11 Resp 17 09/23/21 07:19 BP 109/77 09/23/21 07:19 Pulse Ox 94 L 09/23/21 07:19 FiO2 21 09/22/21 20:28 Intake & Output 09/22/21 09/23/21 09/23/21 18:59 06:59 18:59 Output Total 1100 1350 Balance -1100 -1350 Weight 96.1 kg Output: Urine 1100 1350 Other: Voiding Method External Catheter - Labs CBC & Chem 7: 09/22/21 09:18 09/23/21 06:16 Labs: Abnormal Lab Results - Last 24 Hours (Table) 09/22/21 09/22/21 09/22/21 Range/Units 09:18 09:18 09:18 Chloride 111 H (98-107) mmol/L BUN 20 H (7-17) mg/dL Glucose 172 H (74-99) mg/dL POC Glucose (mg/dL) (70-110) mg/dL Calcium 8.2 L (8.4-10.2) mg/dL Magnesium 1.5 L (1.6-2.3) mg/dL C-Reactive Protein 7.2 H (<1.0) mg/dL Total Protein (PEP) 5.7 L (6.2-8.2) g/dL Procalcitonin 0.14 H (0.02-0.09) ng/mL 09/22/21 09/22/21 09/22/21 Range/Units 11:34 16:54 21:10 Chloride (98-107) mmol/L BUN (7-17) mg/dL Glucose (74-99) mg/dL POC Glucose (mg/dL) 144 H 270 H 168 H (70-110) mg/dL Calcium (8.4-10.2) mg/dL Magnesium (1.6-2.3) mg/dL C-Reactive Protein (<1.0) mg/dL Total Protein (PEP) (6.2-8.2) g/dL Procalcitonin (0.02-0.09) ng/mL 09/23/21 09/23/21 Range/Units 06:16 07:07 Chloride 110 H (98-107) mmol/L BUN 23 H (7-17) mg/dL Glucose 139 H (74-99) mg/dL POC Glucose (mg/dL) 159 H (70-110) mg/dL Calcium 8.2 L (8.4-10.2) mg/dL Magnesium (1.6-2.3) mg/dL C-Reactive Protein (<1.0) mg/dL Total Protein (PEP) (6.2-8.2) g/dL Procalcitonin (0.02-0.09) ng/mL Microbiology - Last 24 Hours (Table) 09/19/21 05:40 Blood Culture - Preliminary Blood No Growth after 96 hours 09/19/21 06:00 Blood Culture - Preliminary Blood No Growth after 96 hours 09/19/21 21:06 Blood Culture - Preliminary Blood No Growth after 72 hours
[2021-09-23 11:53] LABS: Glucose,Whole Blood 292 mg/dL (70-110)
--- NOTE | 2021-09-23 12:51 | US ---
EXAMINATION TYPE: US chest DATE OF EXAM: 09/23/2021 COMPARISON: X Ray 09/23/21 CLINICAL HISTORY: left pleural effusion. Left pleural effusion TECHNIQUE: Targeted ultrasound of the posterior lower bilateral hemithoraces EXAM MEASUREMENTS: Right Pleural Effusion pocket size: 0 cm Left Pleural Effusion pocket size: 10.8 cm Left skin surface to fluid distance: 2.0 cm Left side marked for possible thoracentesis outside the dept. Pulmonologists are able to review the images in the patient?s EMR. IMPRESSIONS: 1. Large left pleural effusion.
--- NOTE | 2021-09-23 14:29 | P.PN ---
Subjective Progress Note Date: 09/23/21 Principal diagnosis: Shortness of breath The patient is a 66-year-old white female with multiple medical problems. She was recently seen in consult when admitted on 08/25/21, with acute kidney injury, anemia, and low platelets in the 20,000 range. The patient had low haptoglobin and elevated LDH. Pathologist review mentioned scattered RBC fragments. The patient was transferred to [facility] for plasmapheresis for presumed TTP. Her ADAMTS 13 however came back in the normal range. The patient was discharged home from [facility], and readmitted because of shortness of breath starting overnight. She was found to have left lower lobe infiltrate with associated small effusion. The patient denies having any chest pain. The patient denies having any cough sputum production chest tightness or wheezing. No fever or chills. Note that the patient was released from [facility] while being on anticoagulation with Eliquis. The white cell count of 5.5 with hemoglobin of 7.9 and platelet count of 182. As such, the hematologic profile is essentially improved. Creatinine is at 0.8 with a BUN of 18 and the sodium level of 138. Pro-calcitonin level is at 0.08. She has chronic edema lower extremities bilaterally. Previous echocardiogram that showed a preserved LV function. Previous Doppler of the lower extremities have shown no evidence of any DVTs. Previous CT scan of the chest has shown a borderline aneurysm of the ascending aorta. Lungs are essentially clear. The patient has been started on antibiotics empirically and the patient is currently on IV Rocephin and vancomycin. On 09/22/2021 patient seen in follow-up on medical surgical floor. Patient states she continues to have exertional dyspnea, she is currently on 4 L of oxygen satting 97%. Afebrile, hemodynamics are stable, and a complete chest discomfort, lung sounds reveal diminished breath sounds at the bases, her chest x-ray on admission showed left pleural effusion and left lower lobe infiltrate, cardiomegaly. Follow-up chest x-ray showed persistent left basilar infiltrate and left pleural effusion, the right lung was clear. ProBNP level was 993, single set of troponin was negative. Patient was tested for COVID-19 and was negative, progesterone level is negative at 0.08. CTA chest showed no evidence of central pulmonary embolism, and moderate pericardial effusion. Patient has been started on IV diuretics at 20 mg of Lasix twice daily. She is diuresing, although today's weight is not recorded. Today's labs have been reviewed, white blood cell count is 5.5, hemoglobin is 7.9, sodium is 139, potassium is 4.3, chloride is 111, B1 is 20, creatinine 0.92. Urine Legionella antigen was negative. Echocardiogram has been ordered and pending at this time. 09/23/2021 patient is seen in follow-up on medical surgical floor. Patient states she continues to be short of breath, most of time with exertion, however she's had episodes of sudden shortness of breath without exertion just sitting in the chair. Denies any chest discomfort, no cough, no phlegm production. No hemoptysis. Patient has been subjected to diuretics, she remains on Lasix 40 mg IV push twice daily, and she is maintaining negative fluid balance of 2450 ML over last 24 hours, today's labs have been reviewed. BMP showed sodium of 137, potassium is 4.0, chloride is 110, BUN is 23 creatinine 0.91. Pro-calcitonin level has been low at 0.08, and follow-up pro-calcitonin was 0.14, still not significantly elevated. Patient remains on cefepime, vancomycin has been discon tinued, ID service is following. Blood cultures have shown no growth. Patient has had no fever or chills. Patient remains on Eliquis for history of atrial flutter. Follow-up chest x-ray today showing left lower lobe infiltrate, atelectasis and left pleural effusion unchanged compared to yesterday's exam. Echocardiogram has been reviewed showing preserved LV function with EF of 55- 60%, and he did not a large circumferential pericardial effusion measuring 2.5 cm with thrombus formation in the pericardial effusion. There was no diastolic collapse or findings of cardiac tamponade. Yesterday's hemoglobin is 7.9, platelet count is 214, renal profile was unremarkable, electrolytes were unrem arkable. Suspect possibility of left hemothorax, we will obtain ultrasound of the chest for possibility of diagnostic and therapeutic thoracentesis. Objective - Vital Signs Vital signs: Vital Signs Temp 98.0 F 09/23/21 07:19 Pulse 100 09/23/21 08:11 Resp 17 09/23/21 07:19 BP 109/77 09/23/21 07:19 Pulse Ox 94 L 09/23/21 07:19 FiO2 21 09/22/21 20:28 Intake & Output 09/22/21 09/23/21 09/23/21 18:59 06:59 18:59 Output Total 1100 1350 Balance -1100 -1350 Weight 96.1 kg Output: Urine 1100 1350 Other: Voiding Method External Catheter - Exam GENERAL EXAM: Alert, very pleasant, 66 y.o. on 4 l/min satting 100 %, comfortable in no apparent distress. HEAD: Normocephalic/atraumatic. EYES: Normal reaction of pupils, equal size. Conjunctiva pink, sclera white. NOSE: Clear with pink turbinates. THROAT: No erythema or exudates. NECK: No masses, no JVD, no thyroid enlargement, no adenopathy. CHEST: No chest wall deformity. Symmetrical expansion. LUNGS: Equal air entry with no crackles, wheeze, rhonchi or dullness. CVS: Regular rate and rhythm, normal S1 and S2, no gallops, no murmurs, no rubs ABDOMEN: Soft, nontender. No hepatosplenomegaly, normal bowel sounds, no guarding or rigidity. EXTREMITIES: No clubbing, no edema, no cyanosis, 2+ pulses and upper and lower extremities. MUSCULOSKELETAL: Muscle strength and tone normal. SPINE: No scoliosis or deformity SKIN: No rashes CENTRAL NERVOUS SYSTEM: Alert and oriented -3. No focal deficits, tone is normal in all 4 extremities. PSYCHIATRIC: Alert and oriented -3. Appropriate affect. Intact judgment and insight. - Labs CBC & Chem 7: 09/22/21 09:18 09/23/21 06:16 Labs: Abnormal Lab Results - Last 24 Hours (Table) 09/22/21 09/22/21 09/22/21 Range/Units 09:18 09:18 16:54 Chloride (98-107) mmol/L BUN (7-17) mg/dL Glucose (74-99) mg/dL POC Glucose (mg/dL) 270 H (70-110) mg/dL Calcium (8.4-10.2) mg/dL Total Protein (PEP) 5.7 L (6.2-8.2) g/dL Procalcitonin 0.14 H (0.02-0.09) ng/mL 07/19/22 07/20/22 07/20/22 Range/Units 21:10 06:16 07:07 Chloride 110 H (98-107) mmol/L BUN 23 H (7-17) mg/dL Glucose 139 H (74-99) mg/dL POC Glucose (mg/dL) 168 H 159 H (70-110) mg/dL Calcium 8.2 L (8.4-10.2) mg/dL Total Protein (PEP) (6.2-8.2) g/dL Procalcitonin (0.02-0.09) ng/mL 09/23/21 Range/Units 11:51 Chloride (98-107) mmol/L BUN (7-17) mg/dL Glucose (74-99) mg/dL POC Glucose (mg/dL) 292 H (70-110) mg/dL Calcium (8.4-10.2) mg/dL Total Protein (PEP) (6.2-8.2) g/dL Procalcitonin (0.02-0.09) ng/mL Microbiology - Last 24 Hours (Table) 09/19/21 05:40 Blood Culture - Preliminary Blood No Growth after 96 hours 09/19/21 06:00 Blood Culture - Preliminary Blood No Growth after 96 hours 09/19/21 21:06 Blood Culture - Preliminary Blood No Growth after 72 hours Assessment and Plan Plan: Assessment: Left sided pleural effusion, under investigation, possibility of left hemothorax is considered versus left lower lobe pneumonia with effusion. The p atient is currently covered with a combination of Rocephin and vancomycin. Nevertheless, she is not acting toxic or septic and the pro-calcitonin level has been quite low. Large pericardial effusion with thrombus, of unknown etiology. Echocardiogram showed no evidence of cardiac tamponade. CT surgery consultation has been requested Acute on chronic dyspnea, under investigation Leg edema, chronic with episodic cellulitis involving lower extremity is bilaterally COPD, which appears to be stable Acute kidney injury, secondary to ATN/hypotension recovered Thrombocytopenia, recovered History of diabetes mellitus with diabetic neuropathy. History of sleep apnea syndrome, currently not on CPAP. History of gastroesophageal reflux disease. History of hypertension. History of hyperlipidemia. History of mild pancreatitis. History of arthritis. Prior history of Chinedu-en-Y bariatric surgery for obesity. Mild ascending aortic aneurysm Plan: Chest x-ray has been reviewed showing persistent left pleural effusion Echocardiogram has been noted Ultrasound the chest shows a sizable left pleural effusion pocket possibly related to hemothorax, we may consider left thoracentesis, Eliquis has been placed on hold today, we may not be able to do thoracentesis for next few days CT surgery consultation has been requested for large pericardial effusion with thrombus in the effusion For now continue current medical treatment Vital signs are stable, continue monitoring H&H Possibility of pneumonia seems to be less likely Vancomycin has been discontinued, patient remains on cefepime for now Continue to follow patient's clinical course Continue with diuretics for now I have personally seen and examined the patient, performed the documentation and the assessment and plan as written. I have personally seen and examined the patient and reviewed the documentation. I performed a joint evaluation with the nurse practitioner in this evaluation was done more than 20 minutes. I fully agree with the documentation above and the plan of care.. For now, the patient is still short of breath. There is a 10 cm pocket of pleural fluid in the left. I stopped anticoagulation the pat ient will need a thoracentesis within next 24-48 hours. Meanwhile, the patient is still receiving diuretics. At the same time, a CT surgery consultation will obtained as the patient was found to have a mother size pericardial effusion with stigmata of bleeding and a thrombus within the fluids. Will evaluate this surgically. Otherwise, her condition is stable. Hemodynamically she is stable.] No signs of any tampon out. The patient remains on diuretics 40 mg IV every 12 hours. Cefepime, discontinued. Time with Patient: Less than 30
[2021-09-23 15:02] LABS: Albumin 2.72 g/dL (3.80-4.90); Gamma Globulin 0.8 g/dL (0.70-1.50)
[2021-09-23 16:36] LABS: Glucose,Whole Blood 344 mg/dL (70-110)
[2021-09-23] MEDS ORDERED: SENNOSIDES 8.6 MG TAB PO PRN (16:43)
--- NOTE | 2021-09-23 18:17 | P.GSCN ---
History of Present Illness Consult date: 09/23/21 Reason for Consult: Pericardial effusion Requesting physician: Sher Drew History of present illness: This is a 66-year-old female patient who follows with Dr. Celia Gerard for her primary care service on an outpatient basis. Just past medical history significant for hypertension, hyperlipidemia, morbid obesity with a BMI of 34.2 kg/m, status post bariatric surgery, COPD, diabetes mellitus type 2, osteoa rthritis, obstructive sleep apnea without any home CPAP use, atrial fibrillation on Eliquis for anticoagulation on an outpatient basis, and recent acute kidney injury and low platelet count in the 20,000 range. Recently, the patient has had complaints of shortness of breath and generalized weakness and subsequently she presented to the emergency department here at [facility] on 09/19/2020 due to these symptoms. She denies any recent fever, chills, nausea, vomiting, blurred vision, hemoptysis, hematemesis, lightheadedness, chest pain/pressure, presyncope or syncope. She does report although she has been having some increased swelling to her bilateral lower extremities over the past several weeks. A chest x-ray on admission showed a left pleural effusion and left lower lobe infiltrate and cardiomegaly. 12-lead EKG showed sinus tachycardia with a heart rate of 111 BPM. On 09/21/2021 for further evaluation a CT chest in August for PE protocol was completed and demonstrated no evidence of central pulmonary embolism, a moderate sized pericardial effusion, cardiomegaly with pulmonary vascular congestion and bilateral pleural effusions. Due to the findings of pericardial effusion cardiology was consulted and on 09/22/2021 a transthoracic 2-D echocardiogram was completed which showed a normal left ventricular ejection fraction of 55-60%, a large circumferential pericardial effusion measuring 2.5 cm with thrombus formation in the pericardial effusion, no diastolic collapse or findings of cardiac tamponade. Subsequently, due to the patient's presenting symptoms and findings on the above-mentioned studies a consult was placed to Dr. Genna Bacon from cardiothoracic surgery for further evaluation and treatment recommendations regarding the pericardial effusion. Review of Systems A 14 point review of systems was completed was negative except as mentioned in HPI. Past Medical History Past Medical History: Atrial Fibrillation, Chest Pain / Angina, COPD, Diabetes Mellitus, GERD/Reflux, Hyperlipidemia, Hypertension, Osteoarthritis (OA), Skin Disorder, Sleep Apnea/CPAP/BIPAP Additional Past Medical History / Comment(s): Diagnosed with mild pancreatitis on 01/22/19, NIDDM type II, neuropathy bilateral hands/legs/feet, arthritis in multiple joints, bilateral carpal tunnel syndrome, gastric ulcer, ADRIANA-no longer uses device since wt loss, varicose veins, venous dermatitis. History of Any Multi-Drug Resistant Organisms: None Reported Past Surgical History: Adenoidectomy, Appendectomy, Bariatric Surgery, Cholecyst ectomy, Orthopedic Surgery, Tonsillectomy Additional Past Surgical History / Comment(s): 01/13/15 Lap laila en Y gastric bypass with lysis of adhesions, EGDs, colonoscopies, bilateral knee arthroscopy, bilateral knee replacements, D&C Past Anesthesia/Blood Transfusion Reactions: No Reported Reaction Additional Past Anesthesia/Blood Transfusion Reaction / Comm: Pt is slow to wake from anesthesia. She has received blood in past without reaction. Past Psychological History: Anxiety, Depression Additional Psychological History / Comment(s): Pt resides with her SO. She uses a cane and walker if needed. 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 Smoking Status: Former smoker Past Alcohol Use History: None Reported Additional Past Alcohol Use History / Comment(s): Pt started smoking in 1969 and quit smoking in 2009 Past Drug Use History: None Reported - Past Family History Mother Family Medical History: Cancer, Deep Vein Thrombosis (DVT) Additional Family Medical History / Comment(s): Mother had uterine cancer. Father Family Medical History: Congestive Heart Failure (CHF), Sleep Apnea/CPAP/BIPAP Additional Family Medical History / Comment(s): Father was an alcoholic. He of CHF at the age of 48yrs. Brother(s) Family Medical History: Coronary Artery Disease (CAD) (Status post PCI) Medications and Allergies Home Medications Medication Instructions Recorded Confirmed Type traZODone HCL [Desyrel] 100 mg PO HS 01/17/19 09/19/21 History Tiotropium 2.5 Mcg/Puff [Spiriva 2 puff INHALATION RT-DAILY 08/25/21 09/19/21 History Respimat 2.5 Mcg] Albuterol Sulfate [Albuterol 2 puff PO RT-Q6H PRN 09/19/21 09/19/21 History Sulfate Hfa] Apixaban [Eliquis] 5 mg PO BID 09/19/21 09/19/21 History Pantoprazole Sodium [Protonix] 40 mg PO DAILY 09/19/21 09/19/21 History cefUROXime axetiL [Ceftin] 500 mg PO BID 09/19/21 09/19/21 History Allergies Allergy/AdvReac Type Severity Reaction Status Date / Time Penicillins Allergy Severe Anaphylaxis Verified 09/19/21 11:10 TRACE METALS Allergy itching,rachna Uncoded 09/19/21 11:10 h Surgical - Exam Vital Signs Temp Pulse Resp BP Pulse Ox 97.8 F 69 24 164/77 94 L 09/19/21 04:11 09/19/21 04:11 09/19/21 04:11 09/19/21 04:11 09/19/21 04:11 - General well developed, well nourished, no distress, no pain, obese - Eyes PERRL, normal ocular movement, pale, no icteric - ENT Edentulous normal pinna, normal nares, normal mucosa, no hearing loss, no congestion - Neck Neck is supple, no JVD, no lymphadenopathy. no masses, no bruits, trachea midline, no venous distension - Respiratory Lung sounds are essentially clear throughout, diminished bilateral bases left greater than right. No wheezes, rhonchi or crackles. Respirations are symmetrical and nonlabored. - Cardiovascular Regular rhythm and rate. S1 and S2 present, negative for S3, gallop or murmur. +1 edema to her bilateral lower extremities. - Abdomen Abdomen is soft, nontender nondistended. Active bowel sounds present all 4 abdominal quadrants. No guarding rigidity. No organomegaly appreciated. - Genitourinary Deferred - Rectum Deferred - Integumentary Skin is warm and dry. No clubbing or cyanosis is present. Small area of erythema to her right lower extremity. - Neurologic No focal deficits. - Musculoskeletal Moves all 4 extremities with equal strength bilaterally. - Psychiatric oriented to time, oriented to person, oriented to place, speech is normal, memory intact Results - Labs 09/22/21 09:18 09/23/21 06:16 Abnormal Lab Results - Last 24 Hours (Table) 09/22/21 09/22/21 09/23/21 Range/Units 09:18 21:10 06:16 Chloride 110 H (98-107) mmol/L BUN 23 H (7-17) mg/dL Glucose 139 H (74-99) mg/dL POC Glucose (mg/dL) 168 H (70-110) mg/dL Calcium 8.2 L (8.4-10.2) mg/dL Albumin (PEP) 2.72 L (3.80-4.90) g/dL Jzdws-8-Rwybiwors 0.55 H (0.10-0.40) g/dL 09/23/21 09/23/21 09/23/21 Range/Units 07:07 11:51 16:35 Chloride (98-107) mmol/L BUN (7-17) mg/dL Glucose (74-99) mg/dL POC Glucose (mg/dL) 159 H 292 H 344 H (70-110) mg/dL Calcium (8.4-10.2) mg/dL Albumin (PEP) (3.80-4.90) g/dL Sneou-4-Aojnlwdhs (0.10-0.40) g/dL Microbiology - Last 24 Hours (Table) 09/19/21 05:40 Blood Culture - Preliminary Blood No Growth after 96 hours 09/19/21 06:00 Blood Culture - Preliminary Blood No Growth after 96 hours 09/19/21 21:06 Blood Culture - Preliminary Blood No Growth after 72 hours Diabetes panel 09/23/21 Range/Units 06:16 Sodium 137 (137-145) mmol/L Potassium 4.0 (3.5-5.1) mmol/L Chloride 110 H (98-107) mmol/L Carbon Dioxide 25 (22-30) mmol/L BUN 23 H (7-17) mg/dL Creatinine 0.91 (0.52-1.04) mg/dL Glucose 139 H (74-99) mg/dL Calcium 8.2 L (8.4-10.2) mg/dL Calcium panel 09/23/21 Range/Units 06:16 Calcium 8.2 L (8.4-10.2) mg/dL Pituitary panel 09/23/21 Range/Units 06:16 Sodium 137 (137-145) mmol/L Potassium 4.0 (3.5-5.1) mmol/L Chloride 110 H (98-107) mmol/L Carbon Dioxide 25 (22-30) mmol/L BUN 23 H (7-17) mg/dL Creatinine 0.91 (0.52-1.04) mg/dL Glucose 139 H (74-99) mg/dL Calcium 8.2 L (8.4-10.2) mg/dL Adrenal panel 09/23/21 Range/Units 06:16 Sodium 137 (137-145) mmol/L Potassium 4.0 (3.5-5.1) mmol/L Chloride 110 H (98-107) mmol/L Carbon Dioxide 25 (22-30) mmol/L BUN 23 H (7-17) mg/dL Creatinine 0.91 (0.52-1.04) mg/dL Glucose 139 H (74-99) mg/dL Calcium 8.2 L (8.4-10.2) mg/dL - Imaging Chest x-ray: report reviewed, image reviewed CT scan - chest: report reviewed, image reviewed Additional studies: 2-D echocardiogram films reviewed by Dr. Genna Bacon. Assessment and Plan Assessment: 1. Moderate sized Procardia fusion thrombus and without evidence of cardiac tamponade 2. Left-sided pleural effusion 3. Acute on chronic dyspnea, likely secondary to above 4. Hypertension 5. Hyperlipidemia 6. History of atrial fibrillation, on Eliquis for anticoagulation on an outpatient basis 7. Chronic obstructive pulmonary disease 8. Diabetes mellitus type 2 9. Asthma 10. Morbid obesity, status post bariatric surgery 11. Osteoarthritis 12. Obstructive sleep apnea without home CPAP use 13. History of acute kidney injury, current BUN 23 and creatinine 0.91 14. GERD Plan: The patient was seen and examined at her bedside on the fourth floor medical surgical unit. She was also seen and examined by Dr. Genna Bacon from cardiot horacic surgery. The results of her transthoracic 2-D echocardiogram and computed tomography scan of her chest were discussed with the patient and her family member present at her bedside. There is no evidence cardiac tamponade at this time and no surgical intervention is recommended at this time. Dr. Bacon discussed with Dr. Drew from pulmonary medicine findings on the computed tomography scan of the chest, her Eliquis is currently on hold and once appropriate she will undergo a left-sided thoracentesis performed by Dr. Drew. She will need a repeat transthoracic 2-D echocardiogram in 1 week to follow the cardiac tamponade. If the patient should become more symptomatic with shortness of breath we can repeat the transthoracic 2-D echocardiogram sooner. Medical management and other comorbidities per primary care service. Continue to follow daily chest x-rays. Pulmonary management recommendations per Dr. Drew. More recommendations to follow based on patient's clinical course. Thank you Dr. Drew for this consult and we look forward to working with you in the care of this patient. I have personally seen and examined the patient, performed the documentation and the assessment and plan as written. 30 minutes spent on the visit . Octavio NUNEZ
--- NOTE | 2021-09-23 18:28 | P.PN ---
Subjective Progress Note Date: 09/23/21 Principal diagnosis: Bicytopenia on admission WBC and platelets have improved to normal limits following treatment with antibiotics. Haptoglobin of 93 on 09/21/21 goes against hemolytic process. LDH of 274 while mildly elevated, is not consistent with hemolysis. She notes having significant emotional distress due to lack of understanding of her clinical course. Her breathing has improved since admission. Objective - Vital Signs Vital signs: Vital Signs Temp 97.6 F 09/23/21 14:00 Pulse 104 H 09/23/21 14:00 Resp 18 09/23/21 14:00 BP 119/74 09/23/21 14:00 Pulse Ox 98 09/23/21 14:00 FiO2 21 09/22/21 20:28 Intake & Output 09/22/21 09/23/21 09/23/21 18:59 06:59 18:59 Output Total 1100 1350 1500 Balance -1100 -1350 -1500 Weight 96.1 kg Output: Urine 1100 1350 1500 Other: Voiding Method External Catheter # Bowel Movements 1 - Constitutional General appearance: Present: cooperative, mild distress, obese - Respiratory Respiratory: right: diminished (Lung base) - Cardiovascular Rhythm: regular Heart sounds: normal: S1, S2 - Neurologic Neurologic: Present: CNII-XII intact - Psychiatric Psychiatric: Present: A&O x's 3 - Labs CBC & Chem 7: 09/22/21 09:18 09/23/21 06:16 Labs: Abnormal Lab Results - Last 24 Hours (Table) 09/22/21 09/22/21 09/23/21 Range/Units 09:18 21:10 06:16 Chloride 110 H (98-107) mmol/L BUN 23 H (7-17) mg/dL Glucose 139 H (74-99) mg/dL POC Glucose (mg/dL) 168 H (70-110) mg/dL Calcium 8.2 L (8.4-10.2) mg/dL Albumin (PEP) 2.72 L (3.80-4.90) g/dL Apcts-4-Vrtrkvilh 0.55 H (0.10-0.40) g/dL 09/23/21 09/23/21 09/23/21 Range/Units 07:07 11:51 16:35 Chloride (98-107) mmol/L BUN (7-17) mg/dL Glucose (74-99) mg/dL POC Glucose (mg/dL) 159 H 292 H 344 H (70-110) mg/dL Calcium (8.4-10.2) mg/dL Albumin (PEP) (3.80-4.90) g/dL Mahmc-4-Xomgtylvk (0.10-0.40) g/dL Microbiology - Last 24 Hours (Table) 09/19/21 05:40 Blood Culture - Preliminary Blood No Growth after 96 hours 09/19/21 06:00 Blood Culture - Preliminary Blood No Growth after 96 hours 09/19/21 21:06 Blood Culture - Preliminary Blood No Growth after 72 hours Assessment and Plan Assessment: Ms. Priest is a 66 year old female admitted with shortness of breath currently being treated for pneumonia. She presented with bicytopenia with low WBC and low platelets, which have since normalized following treatment with antibiotics. Bicytopenia -Records from [facility] reviewed. Admission to [facility] in 08/2021 with concern for TTP (CARLOS, thrombocytopenia, altered mentation) -[id number] found to be WNL on that admission; received solumederol and FFP, but no therapeutic plasma exchange -This admission's bicytopenia is likely reactive to infectious process -No noted schistocytes with haptoglobin and LDH from 09/21/21 inconsistent with hemolytic process -There is no concern for TTP at this time -Continue treating underlying infectious process per primary and pulmonary teams -Hematology will continue to follow peripherally Time with Patient: Greater than 30
[2021-09-23 19:31] LABS: Glucose,Whole Blood 150 mg/dL (70-110)
[2021-09-24 07:10] LABS: Glucose,Whole Blood 155 mg/dL (70-110)
[2021-09-24 07:28] LABS: African American GFR (CKD) 78 (>60 ml/min/1.73 sqM); Anion Gap 1 mmol/L; Blood Urea Nitrogen 25 mg/dL (7-17); Calcium 8.1 mg/dL (8.4-10.2); Carbon Dioxide 28 mmol/L (22-30); Chloride 107 mmol/L (98-107); Glucose 146 mg/dL (74-99); Non-African American GFR(CKD) 67 (>60 ml/min/1.73 sqM); Potassium 3.6 mmol/L (3.5-5.1); Sodium 136 mmol/L (137-145)
[2021-09-24] MEDS: CEFEPIME 2 GM in SODIUM CHLORIDE 0.9% 100 ML IVPB SCH ×3 (08:14→23:30)
[2021-09-24] MEDS: FUROSEMIDE 10 MG/ML 2 ML VIAL IV SCH ×2 (08:15→21:27)
[2021-09-24] MEDS: PANTOPRAZOLE 40 MG TABLET PO SCH (08:15)
[2021-09-24] MEDS: INSULIN ASPART (NovoLOG) 100 UNIT/ML VIAL SQ SCH ×4 (08:15→21:29)
[2021-09-24] MEDS: ACETAMINOPHEN TAB 325 MG TAB PO PRN ×2 (08:15→17:45)
[2021-09-24] MEDS: CYANOCOBALAMIN 500 MCG TAB PO SCH (08:15)
--- NOTE | 2021-09-24 08:19 | P.PN ---
Subjective Progress Note Date: 09/22/21 Principal diagnosis: Fever and possible pneumonia Patient is a 66-year-old patient female with recurrent admissions to the hospital and there was question of TTP and patient presented back to the hospital with increasing shortness of breath, and there is a question of pneumonia patient did have a fever and CT of the chest suggestive of pericardial effusion patient did have echocardiogram with evidence of large pericardial effusion and thrombus but no temponade. On today's evaluation that is 09/22/2021, the patient did have a fever last evening but is afebrile this morning, the patient is breathing more comfortably, denies any chest pain or shortness of breath and a cough no abdominal pain no diarrhea Objective - Vital Signs Vital signs: Vital Signs Temp 98.6 F 09/22/21 08:00 Pulse 99 09/22/21 08:00 Resp 18 09/22/21 08:00 BP 117/75 09/22/21 08:00 Pulse Ox 97 09/22/21 10:30 FiO2 Intake & Output 09/21/21 09/22/21 09/22/21 18:59 06:59 18:59 Intake Total 1080 Output Total 262 763 3191 Balance 880 -750 -1100 Intake: Oral 1080 Output: Urine 393 045 0177 Other: Voiding Method Toilet External Catheter Diaper # Voids 3 - Exam GENERAL DESCRIPTION: An elderly female up in the chair RESPIRATORY SYSTEM: Unlabored breathing , decreased breath sounds at bases HEART: S1 S2 regular rate and rhythm , ABDOMEN: Soft , no tenderness EXTREMITIES: No edema feet - Labs CBC & Chem 7: 09/22/21 09:18 09/24/21 06:20 Labs: Abnormal Lab Results - Last 24 Hours (Table) 09/21/21 09/21/21 09/21/21 Range/Units 05:32 10:05 11:30 RBC (3.80-5.40) m/uL Hgb (11.4-16.0) gm/dL Hct (34.0-46.0) % MCV (80.0-100.0) fL RDW (11.5-15.5) % Lymphocytes # (1.0-4.8) k/uL Retic Count 4.4 H (0.5-2.0) % Chloride (98-107) mmol/L BUN (7-17) mg/dL Glucose (74-99) mg/dL POC Glucose (mg/dL) (70-110) mg/dL Calcium (8.4-10.2) mg/dL Magnesium (1.6-2.3) mg/dL Lactate Dehydrogenase 274 H (120-246) U/L C-Reactive Protein (<1.0) mg/dL Crossmatch See Detail 09/21/21 09/21/21 09/21/21 Range/Units 13:39 16:36 20:43 RBC (3.80-5.40) m/uL Hgb (11.4-16.0) gm/dL Hct (34.0-46.0) % MCV (80.0-100.0) fL RDW (11.5-15.5) % Lymphocytes # (1.0-4.8) k/uL Retic Count (0.5-2.0) % Chloride (98-107) mmol/L BUN (7-17) mg/dL Glucose (74-99) mg/dL POC Glucose (mg/dL) 259 H 307 H 242 H (70-110) mg/dL Calcium (8.4-10.2) mg/dL Magnesium (1.6-2.3) mg/dL Lactate Dehydrogenase (120-246) U/L C-Reactive Protein (<1.0) mg/dL Crossmatch 09/22/21 09/22/21 09/22/21 Range/Units 07:23 09:18 09:18 RBC 2.53 L (3.80-5.40) m/uL Hgb 7.9 L (11.4-16.0) gm/dL Hct 25.4 L (34.0-46.0) % MCV 100.7 H (80.0-100.0) fL RDW 16.1 H (11.5-15.5) % Lymphocytes # 0.6 L (1.0-4.8) k/uL Retic Count (0.5-2.0) % Chloride 111 H (98-107) mmol/L BUN 20 H (7-17) mg/dL Glucose 172 H (74-99) mg/dL POC Glucose (mg/dL) 170 H (70-110) mg/dL Calcium 8.2 L (8.4-10.2) mg/dL Magnesium 1.5 L (1.6-2.3) mg/dL Lactate Dehydrogenase (120-246) U/L C-Reactive Protein 7.2 H (<1.0) mg/dL Crossmatch 09/22/21 Range/Units 11:34 RBC (3.80-5.40) m/uL Hgb (11.4-16.0) gm/dL Hct (34.0-46.0) % MCV (80.0-100.0) fL RDW (11.5-15.5) % Lymphocytes # (1.0-4.8) k/uL Retic Count (0.5-2.0) % Chloride (98-107) mmol/L BUN (7-17) mg/dL Glucose (74-99) mg/dL POC Glucose (mg/dL) 144 H (70-110) mg/dL Calcium (8.4-10.2) mg/dL Magnesium (1.6-2.3) mg/dL Lactate Dehydrogenase (120-246) U/L C-Reactive Protein (<1.0) mg/dL Crossmatch Microbiology - Last 24 Hours (Table) 09/19/21 06:00 Blood Culture - Preliminary Blood No Growth after 72 hours 09/19/21 05:40 Blood Culture - Preliminary Blood No Growth after 72 hours 09/19/21 21:06 Blood Culture - Preliminary Blood No Growth after 48 hours Assessment and Plan (1) Fever Current Visit: Yes Status: Acute Code(s): R50.9 - FEVER, UNSPECIFIED SNOMED Code(s): 147860200 Plan: 1patient presented to hospital with increasing shortness of breath and this patient has [id number] x-rays have been suspicious for left-sided effusion and possible atelectasis underlying pneumonia not entirely excluded patient subsequently did have a CT angiogram of the chest did not mention any consultation however the patient did have large effusion confirmed on echocardiogram and mention the clot inside the effusion could be responsible for her symptomatology any fever. 2continue with cefepime while awaiting further workup and cultures to finalize Time with Patient: Less than 30
--- NOTE | 2021-09-24 08:20 | P.PN ---
Subjective Progress Note Date: 09/23/21 Principal diagnosis: Fever and possible pneumonia Patient is a 66-year-old patient female with recurrent admissions to the hospital and there was question of TTP and patient presented back to the hospital with increasing shortness of breath, and there is a question of pneumonia patient did have a fever and CT of the chest suggestive of pericardial effusion patient did have echocardiogram with evidence of large pericardial effusion and thrombus but no temponade. On today's evaluation that is 09/23/2021, the patient is afebrile this morning, the patient is breathing comfortably on her nasal cannula oxygen, the patient denies any chest pain or shortness of breath and a cough no abdominal pain no diarrhea Objective - Vital Signs Vital signs: Vital Signs Temp 98.0 F 09/23/21 07:19 Pulse 100 09/23/21 08:11 Resp 17 09/23/21 07:19 BP 109/77 09/23/21 07:19 Pulse Ox 94 L 09/23/21 07:19 FiO2 21 09/22/21 20:28 Intake & Output 09/22/21 09/23/21 09/23/21 18:59 06:59 18:59 Output Total 1100 1350 Balance -1100 -1350 Weight 96.1 kg Output: Urine 1100 1350 Other: Voiding Method External Catheter - Exam GENERAL DESCRIPTION: An elderly female up in the chair RESPIRATORY SYSTEM: Unlabored breathing , decreased breath sounds at bases HEART: S1 S2 regular rate and rhythm , ABDOMEN: Soft , no tenderness EXTREMITIES: No edema feet - Labs CBC & Chem 7: 09/22/21 09:18 09/24/21 06:20 Labs: Abnormal Lab Results - Last 24 Hours (Table) 09/22/21 09/22/21 09/22/21 Range/Units 09:18 09:18 16:54 Chloride (98-107) mmol/L BUN (7-17) mg/dL Glucose (74-99) mg/dL POC Glucose (mg/dL) 270 H (70-110) mg/dL Calcium (8.4-10.2) mg/dL Total Protein (PEP) 5.7 L (6.2-8.2) g/dL Procalcitonin 0.14 H (0.02-0.09) ng/mL 09/22/21 09/23/21 09/23/21 Range/Units 21:10 06:16 07:07 Chloride 110 H (98-107) mmol/L BUN 23 H (7-17) mg/dL Glucose 139 H (74-99) mg/dL POC Glucose (mg/dL) 168 H 159 H (70-110) mg/dL Calcium 8.2 L (8.4-10.2) mg/dL Total Protein (PEP) (6.2-8.2) g/dL Procalcitonin (0.02-0.09) ng/mL 09/23/21 Range/Units 11:51 Chloride (98-107) mmol/L BUN (7-17) mg/dL Glucose (74-99) mg/dL POC Glucose (mg/dL) 292 H (70-110) mg/dL Calcium (8.4-10.2) mg/dL Total Protein (PEP) (6.2-8.2) g/dL Procalcitonin (0.02-0.09) ng/mL Microbiology - Last 24 Hours (Table) 09/19/21 05:40 Blood Culture - Preliminary Blood No Growth after 96 hours 09/19/21 06:00 Blood Culture - Preliminary Blood No Growth after 96 hours 09/19/21 21:06 Blood Culture - Preliminary Blood No Growth after 72 hours Assessment and Plan (1) Fever Current Visit: Yes Status: Acute Code(s): R50.9 - FEVER, UNSPECIFIED SNOMED Code(s): 157322045 Plan: 1patient presented to hospital with increasing shortness of breath and this patient has [id number] hospital x-rays have been suspicious for left-sided effusion and possible atelectasis underlying pneumonia not entirely excluded patient subsequently did have a CT angiogram of the chest did not mention any consultation however the patient did have large effusion confirmed on echocardiogram and mention the clot inside the effusion could be responsible for her symptomatology any fever. CT surgery has been consulted and cardiology is following the patient 2patient to continue with cefepime while awaiting further workup and cultures to finalize and monitor clinical course closely Time with Patient: Less than 30
[2021-09-24] MEDS: IPRATROPIUM-ALBUTEROL 3 ML NEB INHALATION PRN ×3 (08:37→16:39)
--- NOTE | 2021-09-24 09:32 | P.PN ---
Subjective Progress Note Date: 09/23/21 Patient is a 66-year-old female with a known history of hypertension, hyperlipidemia, diabetes type 2, obstructive sleep apnea not on CPAP at home, bilateral diabetic peripheral neuropathy, anxiety and depression and prior history of smoking presents to ER with complaints of shortness of breath. Patient does have cough without any sputum production. Was also anxious on admission. No fever no chills. Patient was recently discharged from the hospital on 08/27/2021 and was transferred to [facility] for possible TTP and plasmapheresis. Was admitted to the hospital due to acute kidney injury and altered mental status and found to have schistocytes in the peripheral smear and was seen by matology. Due to severe thrombocytopenia patient was transferred to [facility] for plasmapheresis and also worsening renal function. Patient was discharged to [facility] for physical therapy. Patient was discharged home about a week ago. Last night patient developed shortness of breath and could not breathe. Patient's fianc brought her to the hospital. On admission blood pressure 164/77 pulse is 69 respiration 24 and pulse ox 94% on room air. Laboratory showed WBC 5.2 hemoglobin 8.4 and platelets 147 Sodium 139 potassium 3.7 chloride 108 bicarb is 23 BUN 23 and creatinine 0.84 and blood sugar is 220 Liver enzymes are not elevated proBNP 993 TSH 3.38 and coronavirus PCR not detected. Chest x-ray showed there is left pleural effusion and left lower lobe infiltrate which are new compared to old exam. No heart failure seen. Cardiomegaly. EKG showed sinus tachycardia and low QRS voltage. Patient was transferred to [facility] due to concern for possible TTP. Patient was evaluated by oncology and he was placed on steroids. Further work- up was performed she apparently did not require plasmapheresis. Patient developed acute kidney injury and requiring temporary hemodialysis and her creatinine peaked at 4.8. She was last hemodialyzed on 09/07/2021. He with creatinine level was normalized. Patient was also requiring intubation and [facility] anical ventilator due to altered mental status and encephalopathy and also treated for hyponatremia. Patient was successfully extubated. While here she was at [facility] she developed new onset atrial fibrillation with RVR and was started on Cardizem patient was successfully cardioverted. Patient is maintaining sinus rhythm. Patient was also started on Eliquis and also treated for NSTEMI. 2D echocardiogram during hospitalization showed left ventricular ejection fraction 60 to 65%. Steroids were later stopped by hematology. She has to be on Eliquis for 30 days and then anticoagulation needs to be discontinued. Patient was eventually transferred to inpatient rehab at [facility]. 09/20/2021 Patient is currently resting in the bed. Awake alert oriented x3. Breathing status is much better. Continue on duo nebs. No complaints of chest pain. No nausea vomiting abdominal pain or diarrhea. Patient is being continued on antibiotics for possible pneumonia Overnight T-max was 100.4. Currently afebrile. Laboratory showed WBC 3.74 hemoglobin 7.1 platelets 123 Sodium 141 potassium 4.0 chloride 110 bicarb is 20.4 BUN 20.5 and creatinine 0.8 and blood sugar is 1 4010 calcium 8.0 blood sugar is better controlled. Patient is tolerating oral diet. Chest x-ray showed persistent left basilar infiltrate and/or/effusion. Right lung is clear. 09/21/2021 Patient is seen and evaluated in follow-up this morning currently sitting up at the side of the bed extremely weak requiring 2 person assist to get up although ambulating with a walker and standby assistance. Patient continues to have some shortness of breath with exertion although maintained on 1 liter of 02 currently. Patient appears working to breathe. Patient hemoglobin was low this am and sent [facility] with some hemolysis and a stat cbc has been reordered. Pulmonary and cardiology consulted. Chest xray ordered. Patient did receive a dose of IV lasix today. Labs pending repeat. Patient also continues with fevers and is maintained on IV abx and will consult infectious disease. 09/22/2021 Patient is seen today and was maintaining oxygen saturation of 100% on 4L and weaning as tolerated. Patient is noted to remove her oxygen often while sitting up in the chair. Patient is less dyspneic during conversation. Patient is currently afebrile and is maintained on IV antibiotic therapy in the form of cefepime with ID following. Pleural effusions noted and patient is diuresing with IV lasix. Kidney functions stable. Patient for possible thoracentesis with pulmonary if respiratory status declines. Patient continues to be anxious with episodes of shortness of breath. Encouraged incentive spirometer use and continued cough and deep breathing. Patient denies chest pain or palpitations. Cardiology following as well. 09/23/2021 Patient is seen this morning sitting up in the chair on 2 L via NC and denies worsening shortness of breath. Pulmonary following and CT surgery also consulted for concern of the pericardial effusion noted on echo with no plans for intervention at this time. cardiology following as well as hematology. Chest ultrasound ordered as patient continues with pleural effusion on the left and possible thoracentesis within the next 24 hours. continued on IV lasix for now and will repeat am labs. Patient is afebrile and denies chest pain or palpitations. Recommend to hold eliquis for now for thoracentesis. Patient also reports not having a bowel movement since admission and will add Senokot twice a day Review of systems: Constitutional: no reports of fatigue, no reports of fever, or chills, reports some anxiety Cardiovascular: No reports of chest pain or palpitations Respiratory: reports of shortness of breath although reports feeling improved, no reports of cough GI: No reports of nausea, vomiting, or diarrhea : No reports of dysuria or retention Neurovascular: reports of generalized weakness All medications have been reviewed Active Medications Acetaminophen (Acetaminophen Tab 325 Mg Tab) 650 mg PO Q6HR PRN PRN Reason: Fever and/ or Pain Last Admin: 09/23/21 07:27 Dose: 650 mg Albuterol/Ipratropium (Ipratropium-Albuterol 3 Ml Neb) 3 ml INHALATION RT-QID PRN PRN Reason: Shortness Of Breath Or Wheezing Last Admin: 09/23/21 08:00 Dose: 3 ml Cyanocobalamin (Cyanocobalamin 500 Mcg Tab) 1,000 mcg PO DAILY JAQUELINE Last Admin: 09/23/21 09:03 Dose: 1,000 mcg Furosemide (Furosemide 10 Mg/Ml 2 Ml Vial) 40 mg IV BID JAQUELINE Last Admin: 09/23/21 09:05 Dose: 40 mg Sodium Chloride (Saline 0.9%) 1,000 mls @ 20 mls/hr IV .Q24H JAQUELINE Last Admin: 09/23/21 09:05 Dose: 20 mls/hr Cefepime HCl 2 gm/ Sodium (Chloride) 100 mls @ 25 mls/hr IVPB Q8HR JAQUELINE; Protocol Last Admin: 09/23/21 09:04 Dose: 25 mls/hr Insulin Aspart (Insulin Aspart (Novolog) 100 Unit/Ml Vial) 0 unit SQ ACHS JAQUELINE; Protocol Last Admin: 09/23/21 12:16 Dose: 4 unit Miscellaneous Information (Pneumonia Protocol Utilized 1 Each Mis) 1 each PO ONCE PRN PRN Reason: Per Protocol Miscellaneous Information (Magnesium Replacement Protocol 1 Each Misc) 1 each MISCELLANE DAILY PRN; Protocol PRN Reason: Per Protocol Ondansetron HCl (Ondansetron 4 Mg/2 Ml Vial) 4 mg IVP Q6HR PRN PRN Reason: Nausea And Vomiting Last Admin: 09/20/21 17:17 Dose: 4 mg Pantoprazole Sodium (Pantoprazole 40 Mg Tablet) 40 mg PO [facility] Last Admin: 09/23/21 09:03 Dose: 40 mg Trazodone HCl (Trazodone Hcl 100 Mg Tab) 100 mg PO [facility] Last Admin: 09/22/21 21:25 Dose: 100 mg Physical exam: Patient is sitting up in the chair comfortably, no acute distress, awake alert and oriented.. HEENT: Normocephalic. Neck is supple. Pupils reactive. Nostrils clear. Oral cavity is moist. Neck reveals no JVD, carotid bruits, or thyromegaly. CHEST EXAMINATION: Trachea is central. Symmetrical expansion. diminished sounds bilaterally and minimal basilar crackles. No wheezing. less labored breathing on todays exam CARDIAC: Normal S1, S2 with no gallops. No murmurs ABDOMEN: Soft. Bowel sounds present. Nontender. No organomegaly. No abdominal bruits. Extremities: Bilateral trace edema. No clubbing or cyanosis Neurologically awake, alert, oriented x3 with well-coordinated movements. diffuse weakness noted Skin: No rash or skin lesions. Psychiatric: Cooperative. Non-suicidal, less anxious. Musculoskeletal: No joint swelling or deformity. Normal range of motion. Assessment: Left lower lobe infiltrate/pneumonia. Possible healthcare associated. Recent admission with [facility] requiring HD, A fib, NSTEMI , possible thrombocytopenia/TTP and was transferred to [facility] on 08/27/2021 Acute COPD exacerbation. pleural effusions and some possible pericardial effusion noted on CTA Normocytic anemia with thrombocytopenia Hypertension Hyperlipidemia GERD Diabetes type 2 [id number] Diabetic peripheral neuropathy bilateral Obstructive sleep apnea not using any CPAP at home currently Borderline aneurysm of the ascending aorta Anxiety/depression Prior history of smoking DVT prophylaxis GI prophylaxis Full code Plan: Patient is maintained on antibiotics in the form of cefepime for pneumonia and pulmonary and ID following. Cardiology consulted as well and pending. Recommend to continue with IV diuresis and follow up labs and in the a.m. Chest ultrasound ordered and planning for possible thoracentesis in the next 24 hours, recommend holding anticoagulation until then PT/OT to evaluate the patient Recommend to continue using incentive spirometer at least 10 times every hour while awake. Due to multiple complex medical issues, prognosis is guarded The impression and plan of care has been dictated by Taina Yuen, Nurse Practitioner as directed. Dr. Lashay MD I have performed a history and examination and MDM of this patient, discussed the same with the dictator, and agree with the dictator's assessment and plan as written ,documented as a scribe. Based on total visit time, I have performed more than 50% of the visit. Objective - Vital Signs Vital signs: Vital Signs Temp 98.0 F 09/23/21 07:19 Pulse 100 09/23/21 08:11 Resp 17 09/23/21 07:19 BP 109/77 09/23/21 07:19 Pulse Ox 94 L 09/23/21 07:19 FiO2 21 09/22/21 20:28 Intake & Output 09/22/21 09/23/21 09/23/21 18:59 06:59 18:59 Output Total 1100 1350 Balance -1100 -1350 Weight 96.1 kg Output: Urine 1100 1350 Other: Voiding Method External Catheter - Labs CBC & Chem 7: 09/22/21 09:18 09/24/21 06:20 Labs: Abnormal Lab Results - Last 24 Hours (Table) 09/22/21 09/22/21 09/22/21 Range/Units 09:18 09:18 09:18 RBC 2.53 L (3.80-5.40) m/uL Hgb 7.9 L (11.4-16.0) gm/dL Hct 25.4 L (34.0-46.0) % MCV 100.7 H (80.0-100.0) fL RDW 16.1 H (11.5-15.5) % Lymphocytes # 0.6 L (1.0-4.8) k/uL Chloride 111 H (98-107) mmol/L BUN 20 H (7-17) mg/dL Glucose 172 H (74-99) mg/dL POC Glucose (mg/dL) (70-110) mg/dL Calcium 8.2 L (8.4-10.2) mg/dL Magnesium 1.5 L (1.6-2.3) mg/dL C-Reactive Protein 7.2 H (<1.0) mg/dL Total Protein (PEP) (6.2-8.2) g/dL Procalcitonin 0.14 H (0.02-0.09) ng/mL 09/22/21 09/22/21 09/22/21 Range/Units 09:18 11:34 16:54 RBC (3.80-5.40) m/uL Hgb (11.4-16.0) gm/dL Hct (34.0-46.0) % MCV (80.0-100.0) fL RDW (11.5-15.5) % Lymphocytes # (1.0-4.8) k/uL Chloride (98-107) mmol/L BUN (7-17) mg/dL Glucose (74-99) mg/dL POC Glucose (mg/dL) 144 H 270 H (70-110) mg/dL Calcium (8.4-10.2) mg/dL Magnesium (1.6-2.3) mg/dL C-Reactive Protein (<1.0) mg/dL Total Protein (PEP) 5.7 L (6.2-8.2) g/dL Procalcitonin (0.02-0.09) ng/mL 09/22/21 09/23/21 Range/Units 21:10 07:07 RBC (3.80-5.40) m/uL Hgb (11.4-16.0) gm/dL Hct (34.0-46.0) % MCV (80.0-100.0) fL RDW (11.5-15.5) % Lymphocytes # (1.0-4.8) k/uL Chloride (98-107) mmol/L BUN (7-17) mg/dL Glucose (74-99) mg/dL POC Glucose (mg/dL) 168 H 159 H (70-110) mg/dL Calcium (8.4-10.2) mg/dL Magnesium (1.6-2.3) mg/dL C-Reactive Protein (<1.0) mg/dL Total Protein (PEP) (6.2-8.2) g/dL Procalcitonin (0.02-0.09) ng/mL Microbiology - Last 24 Hours (Table) 09/19/21 05:40 Blood Culture - Preliminary Blood No Growth after 96 hours 09/19/21 06:00 Blood Culture - Preliminary Blood No Growth after 96 hours 09/19/21 21:06 Blood Culture - Preliminary Blood No Growth after 72 hours
--- NOTE | 2021-09-24 11:24 | P.PCN ---
Date of Procedure: 09/24/21 Preoperative Diagnosis: pleural effusion, left-sided Postoperative Diagnosis: pleural effusion, left-sided Procedure(s) Performed: Thoracentesis Anesthesia: local Surgeon: Sher Drew Estimated Blood Loss (ml): 0 Pathology: other Condition: stable Disposition: floor Operative Findings: A time out was performed and the chest x-ray was reviewed, the appropriate side was confirmed and marked. My hands were washed immediately prior to the procedure. I wore a surgical cap, mask with protective eyewear, sterile gown and sterile gloves throughout the procedure. The patient was prepped and draped in a sterile manner using chlorhexidine scrub after the appropriate level was pe rcussed and confirmed by ultrasound. 1% lidocaine was used to anesthesize the skin, subcutaneous tissue, superior aspect of the rib periosteum and parietal pleura. A finder needle was then introduced over the superior aspect of the rib to locate the pleural fluid; 2colored fluid was aspirated at a depth of approximately 2 cm. A 10-blade scalpel was used to christie the skin at the insertion site. The [id number] needle was then introduced through the skin incision into the pleural space using negative aspiration pressure and the red colometric indicator to confirm appropriate positioning of the needle. The thoracentesis catheter was then threaded without difficulty. 13985 ml of turbid colored fluid was removed without difficulty. The catheter was then removed. No immediate complications were noted during the procedure. A post-procedure chest x-ray is pending at the time of this note. The fluid will be sent for studies. Estimated blood loss is 0cc
[2021-09-24 11:36] LABS: Glucose,Whole Blood 182 mg/dL (70-110)
--- NOTE | 2021-09-24 11:59 | P.PN ---
Subjective Progress Note Date: 09/24/21 Principal diagnosis: Shortness of breath The patient is a 66-year-old white female with multiple medical problems. She was recently seen in consult when admitted on 08/25/21, with acute kidney injury, anemia, and low platelets in the 20,000 range. The patient had low haptoglobin and elevated LDH. Pathologist review mentioned scattered RBC fragments. The patient was transferred to [facility] for plasmapheresis for presumed TTP. Her ADAMTS 13 however came back in the normal range. The patient was discharged home from [facility], and readmitted because of shortness of breath starting overnight. She was found to have left lower lobe infiltrate with associated small effusion. The patient denies having any chest pain. The patient denies having any cough sputum production chest tightness or wheezing. No fever or chills. Note that the patient was released from [facility] while being on anticoagulation with Eliquis. The white cell count of 5.5 with hemoglobin of 7.9 and platelet count of 182. As such, the hematologic profile is essentially improved. Creatinine is at 0.8 with a BUN of 18 and the sodium level of 138. Pro-calcitonin level is at 0.08. She has chronic edema lower extremities bilaterally. Previous echocardiogram that showed a preserved LV function. Previous Doppler of the lower extremities have shown no evidence of any DVTs. Previous CT scan of the chest has shown a borderline aneurysm of the ascending aorta. Lungs are essentially clear. The patient has been started on antibiotics empirically and the patient is currently on IV Rocephin and vancomycin. On 09/22/2021 patient seen in follow-up on medical surgical floor. Patient states she continues to have exertional dyspnea, she is currently on 4 L of oxygen satting 97%. Afebrile, hemodynamics are stable, and a complete chest discomfort, lung sounds reveal diminished breath sounds at the bases, her chest x-ray on admission showed left pleural effusion and left lower lobe infiltrate, cardiomegaly. Follow-up chest x-ray showed persistent left basilar infiltrate and left pleural effusion, the right lung was clear. ProBNP level was 993, single set of troponin was negative. Patient was tested for COVID-19 and was negative, progesterone level is negative at 0.08. CTA chest showed no evidence of central pulmonary embolism, and moderate pericardial effusion. Patient has been started on IV diuretics at 20 mg of Lasix twice daily. She is diuresing, although today's weight is not recorded. Today's labs have been reviewed, white blood cell count is 5.5, hemoglobin is 7.9, sodium is 139, potassium is 4.3, chloride is 111, B1 is 20, creatinine 0.92. Urine Legionella antigen was negative. Echocardiogram has been ordered and pending at this time. 09/23/2021 patient is seen in follow-up on medical surgical floor. Patient states she continues to be short of breath, most of time with exertion, however she's had episodes of sudden shortness of breath without exertion just sitting in the chair. Denies any chest discomfort, no cough, no phlegm production. No hemoptysis. Patient has been subjected to diuretics, she remains on Lasix 40 mg IV push twice daily, and she is maintaining negative fluid balance of 2450 ML over last 24 hours, today's labs have been reviewed. BMP showed sodium of 137, potassium is 4.0, chloride is 110, BUN is 23 creatinine 0.91. Pro-calcitonin level has been low at 0.08, and follow-up pro-calcitonin was 0.14, still not significantly elevated. Patient remains on cefepime, vancomycin has been discon tinued, ID service is following. Blood cultures have shown no growth. Patient has had no fever or chills. Patient remains on Eliquis for history of atrial flutter. Follow-up chest x-ray today showing left lower lobe infiltrate, atelectasis and left pleural effusion unchanged compared to yesterday's exam. Echocardiogram has been reviewed showing preserved LV function with EF of 55- 60%, and he did not a large circumferential pericardial effusion measuring 2.5 cm with thrombus formation in the pericardial effusion. There was no diastolic collapse or findings of cardiac tamponade. Yesterday's hemoglobin is 7.9, platelet count is 214, renal profile was unremarkable, electrolytes were unrem arkable. Suspect possibility of left hemothorax, we will obtain ultrasound of the chest for possibility of diagnostic and therapeutic thoracentesis. On 09/24/2021 patient seen in follow-up on medical surgical floor. Yesterday's ultrasound of the chest showed left pleural effusion of 10.8 cm. Across was placed on hold, patient remains on empiric antibiotics at this point, vancomycin has been discontinued cefepime continues. Pro-calcitonin level has been low. Patient has been afebrile, no cough, no phlegm production, no chest congestion. The plan is to proceed with therapy and diagnostic left-sided thoracentesis today. This was done at the bedside with Dr. Drew, and 1.25 liters of dark thin pleural fluid was removed, nonbloody, and this was sent for analysis, cytology of cultures. Patient continues on diuretics with Lasix 40 mg twice a day, he is in -2.3 L net fluid balance, lower extremity edema is improving. Patient is in sinus mechanism hemodynamically stable. Objective - Vital Signs Vital signs: Vital Signs Temp 99.9 F H 09/24/21 01:33 Pulse 93 09/24/21 08:47 Resp 18 09/24/21 07:25 BP 112/73 09/24/21 01:33 Pulse Ox 98 09/24/21 08:37 FiO2 21 09/24/21 08:37 Intake & Output 09/23/21 09/24/21 09/24/21 18:59 06:59 18:59 Intake Total 450 Output Total 0142 875 5257 Balance -1500 -800 -850 Intake: Oral 450 Output: Urine 4128 606 5104 Other: Voiding Method Toilet Toilet # Bowel Movements 1 - Exam GENERAL EXAM: Alert, very pleasant, 66 y.o. on room air with a pulse ox of 98 comfortable in no apparent distress. HEAD: Normocephalic/atraumatic. EYES: Normal reaction of pupils, equal size. Conjunctiva pink, sclera white. NOSE: Clear with pink turbinates. THROAT: No erythema or exudates. NECK: No masses, no JVD, no thyroid enlargement, no adenopathy. CHEST: No chest wall deformity. Symmetrical expansion. LUNGS: Equal air entry with no crackles, wheeze, rhonchi or dullness. CVS: Regular rate and rhythm, normal S1 and S2, no gallops, no murmurs, no rubs ABDOMEN: Soft, nontender. No hepatosplenomegaly, normal bowel sounds, no guarding or rigidity. EXTREMITIES: No clubbing, no edema, no cyanosis, 2+ pulses and upper and lower extremities. MUSCULOSKELETAL: Muscle strength and tone normal. SPINE: No scoliosis or deformity SKIN: No rashes CENTRAL NERVOUS SYSTEM: Alert and oriented -3. No focal deficits, tone is normal in all 4 extremities. PSYCHIATRIC: Alert and oriented -3. Appropriate affect. Intact judgment and insight. - Labs CBC & Chem 7: 09/22/21 09:18 09/24/21 06:20 Labs: Abnormal Lab Results - Last 24 Hours (Table) 09/22/21 09/23/21 09/23/21 Range/Units 09:18 11:51 16:35 Sodium (137-145) mmol/L BUN (7-17) mg/dL Glucose (74-99) mg/dL POC Glucose (mg/dL) 292 H 344 H (70-110) mg/dL Calcium (8.4-10.2) mg/dL Albumin (PEP) 2.72 L (3.80-4.90) g/dL Xrwvy-3-Luleuxgoj 0.55 H (0.10-0.40) g/dL 09/23/21 09/24/21 09/24/21 Range/Units 19:30 06:20 07:08 Sodium 136 L (137-145) mmol/L BUN 25 H (7-17) mg/dL Glucose 146 H (74-99) mg/dL POC Glucose (mg/dL) 150 H 155 H (70-110) mg/dL Calcium 8.1 L (8.4-10.2) mg/dL Albumin (PEP) (3.80-4.90) g/dL Idgfk-6-Aztwoynqp (0.10-0.40) g/dL 09/24/21 Range/Units 11:34 Sodium (137-145) mmol/L BUN (7-17) mg/dL Glucose (74-99) mg/dL POC Glucose (mg/dL) 182 H (70-110) mg/dL Calcium (8.4-10.2) mg/dL Albumin (PEP) (3.80-4.90) g/dL Tpkye-7-Ntzyfuvvv (0.10-0.40) g/dL Microbiology - Last 24 Hours (Table) 09/19/21 06:00 Blood Culture - Preliminary Blood No Growth after 120 hours 09/19/21 05:40 Blood Culture - Preliminary Blood No Growth after 120 hours 09/19/21 21:06 Blood Culture - Preliminary Blood No Growth after 96 hours Assessment and Plan Plan: Assessment: Left sided pleural effusion, under investigation, possibility of left hemothorax is considered versus left lower lobe pneumonia with effusion. The patient is currently covered with a combination of Rocephin and vancomycin. Nevertheless, she is not acting toxic or septic and the pro-calcitonin level has been quite low. Large pericardial effusion with thrombus, of unknown etiology. Echocardiogram showed no evidence of cardiac tamponade. CT surgery has been consulted. Status post left-sided thoracentesis on 09/24/2021 with removal of 1.25 L of 10 dark pleural fluid which was sent for analysis, cytology and cultures. Acute on chronic dyspnea, under investigation Leg edema, chronic with episodic cellulitis involving lower extremity is bilaterally COPD, which appears to be stable Acute kidney injury, secondary to ATN/hypotension recovered Thrombocytopenia, recovered History of diabetes mellitus with diabetic neuropathy. History of sleep apnea syndrome, currently not on CPAP. History of gastroesophageal reflux disease. History of hypertension. History of hyperlipidemia. History of mild pancreatitis. History of arthritis. Prior history of Chinedu-en-Y bariatric surgery for obesity. Mild ascending aortic aneurysm Plan: Patient tolerated left-sided thoracentesis well, 1.25 L of thin dark fluid which was nonbloody removed and sent for analysis and cytology and cultures We'll review postprocedure chest x-ray Continue with current medical treatment continued diuretics We'll continue to follow patient's clinical course I have personally seen and examined the patient, performed the documentation and the assessment and plan as written. I have personally seen and examined the patient and reviewed the documentation. I performed a joint evaluation with the nurse practitioner in this evaluation was done more than 20 minutes. I fully agree with the documentation above and the plan of care.. The patient's underwent a right-sided thoracentesis today. A total of 1.2 L of fluid was removed. Clinically the patient felt better. The fluid will be sent for analysis and the follow-up chest x-ray showed interval decrease in the left-sided pleural effusion. There is no evidence of any pneumothorax. There is still some cardiomegaly. Patient is known to have also pericardial effusion. No signs of any tamponade at this point in time. We'll continue diuretics for another 24 hours. Time with Patient: Less than 30
[2021-09-24] MEDS ORDERED: HYDROcodone/APAP 7.5-325MG 1 EACH TAB PO ONE (12:17)
--- NOTE | 2021-09-24 12:30 | P.PN ---
Subjective This is a 65-year-old female with a past medical history significant for Recent admission and transfer to [facility] 08/2021 with Acute renal failure s/p hemodialysis, severe thrombocytopenia and concern for TTP at that time did not require plasmapheresis, Typical atrial flutter (diagnosed at [facility] 08/2021) s/p MARIA ELENA/cardioversion on 09/03/21, hypertension, hyperlipidemia, COPD, obstructive sleep apnea, mild-non obstructive coronary artery disease and 2diabetes. Patient follows in the office with Dr. Aguilar. We have been asked to see the patient in consultation for shortness of breath and pericardial effusion. Patient presents to the emergency department with fever, worsening shortness of breath. She states she was discharged from [facility] 09/11/2021 to [facility] for physical therapy and was discharged home about 1 week ago. Night prior to admission, patient had worsening shortness of breath and was brought to the ER for further evaluation. She also was noted to have fevers and chills. Records obtained from [facility]: Patient was initially transferred to [facility] due to concern for possible TTP. Patient was initially evaluated by Hematology, started on IV steroids, [id number] resulted within normal limits. Platelets improved, steroids were discontinued and hematology signed off. She did not require plasmapheresis. She underwent Temporary hemodialysis, creatinine level normalizied. She was extubated on 09/01/21. Renal biopsy was performed that revealed ATN. She developed atrial flutter with RVR, was initially started on Cardizem and MARIA ELENA/Cardioversion was performed on 09/03/21 restoring normal sinus rhythm. Patient was started on Eliquis. Patient was eventually transferred to inpatient rehab. Echocardiogram revealed EF of 5560%, large circumferential pericardial effusion measuring 2.5 cm with thrombus formation the pericardial effusion. No diastolic collapse or findings of cardiac tamponade 09/24/2021 Patient seen and examined at bedside, no distress. Her breathing has slightly improved. Denies any chest pain or palpitations. She is maintained on IV Lasix. I/Os revealed 1300mL output over the past 24 hours. Eliquis is on hold for possible thoracentesis with pulmonary today. CT surgery was consulted by pulmonary with no surgical intervention recommended at this time. Labs: Sodium 136, potassium 3.6, BUN 25, serum crit 0.89 PHYSICAL EXAM: VITAL SIGNS: Reviewed. GENERAL: Well-developed in no acute distress. HEENT: Head is normocephalic. Mucous membranes of the mouth are moist. Neck supple. No JVD LUNGS: Respirations even and unlabored. Lungs diminished left lower lobe to auscultation clear other lung graves bilaterally. HEART: Regular rate and rhythm. S1 and S2 heard. ABDOMEN: Soft. Nondistended. Nontender. EXTREMITIES: Normal range of motion. No clubbing or cyanosis. Peripheral pul ses intact. moderate bilateral lower extremity edema NEUROLOGIC: Awake and alert. Oriented x 3. ASSESSMENT: Acute on chronic respiratory failure Moderate pleural effusion Large pericardial effusion with 2.5cm thrombus formation in the pericardial effusion noted on echo no evidence of tamponade Fever, Chills Possible pneumonia Recent admission and transfer to [facility] 08/2021 with Acute renal failure s/p hemodialysis, severe thrombocytopenia and concern for TTP at that time did not require plasmapheresis Typical atrial flutter (diagnosed at [facility] per records on 08/29/2021) s/p MARIA ELENA/cardioversion on 09/03/21, on Eliquis Hypertension Hyperlipidemia Diabetes, type 2 COPD Obstructive sleep apnea Mild non-obstructive coronary artery disease, per cardiac catheterization in 2019 PLAN: Continue IV lasix at this time Repeat limited echocardiogram tomorrow to evalute pericardial effusion, no indication for surgery at this time. CT surgery also consulted and evaluated the patient no surgical intervention was recommended at this time Plan for possible thoracentesis for diagnostic and therapeutic purposes today with pulmonary Monitor I/Os, daily weights, renal function and electrolytes Further recommendations based on clinical course Nurse practitioner note has been reviewed by physician. Signing provider agrees with the documented findings, assessment, and plan of care. Objective - Vital Signs Vital signs: Vital Signs Temp 99.9 F H 09/24/21 01:33 Pulse 75 09/24/21 11:56 Resp 18 09/24/21 07:25 BP 112/73 09/24/21 01:33 Pulse Ox 98 09/24/21 08:37 FiO2 21 09/24/21 08:37 Intake & Output 09/23/21 09/24/21 09/24/21 18:59 06:59 18:59 Intake Total 450 Output Total 6126 991 2085 Balance -1500 -800 -850 Intake: Oral 450 Output: Urine 6199 537 7618 Other: Voiding Method Toilet Toilet # Bowel Movements 1 - Labs CBC & Chem 7: 09/22/21 09:18 09/24/21 06:20 Labs: Abnormal Lab Results - Last 24 Hours (Table) 09/22/21 09/23/21 09/23/21 Range/Units 09:18 16:35 19:30 Sodium (137-145) mmol/L BUN (7-17) mg/dL Glucose (74-99) mg/dL POC Glucose (mg/dL) 344 H 150 H (70-110) mg/dL Calcium (8.4-10.2) mg/dL Albumin (PEP) 2.72 L (3.80-4.90) g/dL Ikvba-3-Ezqurfdco 0.55 H (0.10-0.40) g/dL 09/24/21 09/24/21 09/24/21 Range/Units 06:20 07:08 11:34 Sodium 136 L (137-145) mmol/L BUN 25 H (7-17) mg/dL Glucose 146 H (74-99) mg/dL POC Glucose (mg/dL) 155 H 182 H (70-110) mg/dL Calcium 8.1 L (8.4-10.2) mg/dL Albumin (PEP) (3.80-4.90) g/dL Osxsi-9-Qpvdlllre (0.10-0.40) g/dL Microbiology - Last 24 Hours (Table) 09/19/21 06:00 Blood Culture - Preliminary Blood No Growth after 120 hours 09/19/21 05:40 Blood Culture - Preliminary Blood No Growth after 120 hours 09/19/21 21:06 Blood Culture - Preliminary Blood No Growth after 96 hours
--- NOTE | 2021-09-24 12:55 | XR ---
EXAMINATION TYPE: XR chest 1V DATE OF EXAM: 09/24/2021 12:23 PM COMPARISON: Chest radiographs from 09/23/2021 TECHNIQUE: XR chest 1V Portable AP radiograph of the chest. CLINICAL INDICATION:Female, 66 years old with history of thoracentesis; FINDINGS: Lungs/Pleura: Decrease in left pleural effusion now trace/small in size. There is no evidence of , fo nasir consolidation, or pneumothorax. Pulmonary vascularity: Unremarkable. Heart/mediastinum: Cardiomediastinal silhouette is enlarged and stable. Musculoskeletal: No acute osseous pathology. IMPRESSION: 1. Interval decrease in left pleural effusion A small in size. No evidence of pneumothorax. 2. Symmetrically megaly. 3. Mild COPD.
--- NOTE | 2021-09-24 15:22 | P.PN ---
Subjective Progress Note Date: 09/24/21 Patient is a 66-year-old female with a known history of hypertension, hyperlipidemia, diabetes type 2, obstructive sleep apnea not on CPAP at home, bilateral diabetic peripheral neuropathy, anxiety and depression and prior history of smoking presents to ER with complaints of shortness of breath. Patient does have cough without any sputum production. Was also anxious on admission. No fever no chills. Patient was recently discharged from the hospital on 08/27/2021 and was transferred to [facility] for possible TTP and plasmapheresis. Was admitted to the hospital due to acute kidney injury and altered mental status and found to have schistocytes in the peripheral smear and was seen by matology. Due to severe thrombocytopenia patient was transferred to [facility] for plasmapheresis and also worsening renal function. Patient was discharged to [facility] for physical therapy. Patient was discharged home about a week ago. Last night patient developed shortness of breath and could not breathe. Patient's fianc brought her to the hospital. On admission blood pressure 164/77 pulse is 69 respiration 24 and pulse ox 94% on room air. Laboratory showed WBC 5.2 hemoglobin 8.4 and platelets 147 Sodium 139 potassium 3.7 chloride 108 bicarb is 23 BUN 23 and creatinine 0.84 and blood sugar is 220 Liver enzymes are not elevated proBNP 993 TSH 3.38 and coronavirus PCR not detected. Chest x-ray showed there is left pleural effusion and left lower lobe infiltrate which are new compared to old exam. No heart failure seen. Cardiomegaly. EKG showed sinus tachycardia and low QRS voltage. Patient was transferred to [facility] due to concern for possible TTP. Patient was evaluated by oncology and he was placed on steroids. Further work- up was performed she apparently did not require plasmapheresis. Patient developed acute kidney injury and requiring temporary hemodialysis and her creatinine peaked at 4.8. She was last hemodialyzed on 09/07/2021. He with creatinine level was normalized. Patient was also requiring intubation and [place] anical ventilator due to altered mental status and encephalopathy and also treated for hyponatremia. Patient was successfully extubated. While here she was at [facility] she developed new onset atrial fibrillation with RVR and was started on Cardizem patient was successfully cardioverted. Patient is maintaining sinus rhythm. Patient was also started on Eliquis and also treated for NSTEMI. 2D echocardiogram during hospitalization showed left ventricular ejection fraction 60 to 65%. Steroids were later stopped by hematology. She has to be on Eliquis for 30 days and then anticoagulation needs to be discontinued. Patient was eventually transferred to inpatient rehab at [facility]. 09/20/2021 Patient is currently resting in the bed. Awake alert oriented x3. Breathing status is much better. Continue on duo nebs. No complaints of chest pain. No nausea vomiting abdominal pain or diarrhea. Patient is being continued on antibiotics for possible pneumonia Overnight T-max was 100.4. Currently afebrile. Laboratory showed WBC 3.74 hemoglobin 7.1 platelets 123 Sodium 141 potassium 4.0 chloride 110 bicarb is 20.4 BUN 20.5 and creatinine 0.8 and blood sugar is 1 4010 calcium 8.0 blood sugar is better controlled. Patient is tolerating oral diet. Chest x-ray showed persistent left basilar infiltrate and/or/effusion. Right lung is clear. 09/21/2021 Patient is seen and evaluated in follow-up this morning currently sitting up at the side of the bed extremely weak requiring 2 person assist to get up although ambulating with a walker and standby assistance. Patient continues to have some shortness of breath with exertion although maintained on 1 liter of 02 currently. Patient appears working to breathe. Patient hemoglobin was low this am and sent to [facility] with some hemolysis and a stat cbc has been reordered. Pulmonary and cardiology consulted. Chest xray ordered. Patient did receive a dose of IV lasix today. Labs pending repeat. Patient also continues with fevers and is maintained on IV abx and will consult infectious disease. 09/22/2021 Patient is seen today and was maintaining oxygen saturation of 100% on 4L and weaning as tolerated. Patient is noted to remove her oxygen often while sitting up in the chair. Patient is less dyspneic during conversation. Patient is currently afebrile and is maintained on IV antibiotic therapy in the form of cefepime with ID following. Pleural effusions noted and patient is diuresing with IV lasix. Kidney functions stable. Patient for possible thoracentesis with pulmonary if respiratory status declines. Patient continues to be anxious with episodes of shortness of breath. Encouraged incentive spirometer use and continued cough and deep breathing. Patient denies chest pain or palpitations. Cardiology following as well. 09/23/2021 Patient is seen this morning sitting up in the chair on 2 L via NC and denies worsening shortness of breath. Pulmonary following and CT surgery also consulted for concern of the pericardial effusion noted on echo with no plans for intervention at this time. cardiology following as well as hematology. Chest ultrasound ordered as patient continues with pleural effusion on the left and possible thoracentesis within the next 24 hours. continued on IV lasix for now and will repeat am labs. Patient is afebrile and denies chest pain or palpitations. Recommend to hold eliquis for now for thoracentesis. Patient also reports not having a bowel movement since admission and will add Senokot twice a day 09/24/2021 Patient is seen in follow-up this morning scheduled to undergo thoracentesis on the left status post chest ultrasound with pulmonary. Patient is currently being prepped for the thoracentesis and fluid culture and analysis will be sent. Patient's Eliquis has been on hold and will discuss with cardiology about resuming after thoracentesis. Patient is continued on IV cefepime and blood cultures have been negative. Cardiology following as well and recommend repeat echo in the morning as the echo showed an EF of 55-60% with a large circumferential pericardial effusion measuring approximately 2.5 cm with thrombus formation in the pericardial effusion with no diastolic collapse to suggest findings of cardiac tamponade. Patient is afebrile and denies worsening shortness of breath or any chest pain. Patient tolerating diet and did have a bowel movement last night. Review of systems: Constitutional: no reports of fatigue, no reports of fever, or chills, reports some anxiety Cardiovascular: No reports of chest pain or palpitations Respiratory: reports of shortness of breath although reports feeling improved, no reports of cough GI: No reports of nausea, vomiting, or diarrhea : No reports of dysuria or retention Neurovascular: reports of generalized weakness All medications have been reviewed Active Medications Acetaminophen (Acetaminophen Tab 325 Mg Tab) 650 mg PO Q6HR PRN PRN Reason: Fever and/ or Pain Last Admin: 09/24/21 08:15 Dose: 650 mg Albuterol/Ipratropium (Ipratropium-Albuterol 3 Ml Neb) 3 ml INHALATION RT-QID PRN PRN Reason: Shortness Of Breath Or Wheezing Last Admin: 09/24/21 11:56 Dose: 3 ml Cyanocobalamin (Cyanocobalamin 500 Mcg Tab) 1,000 mcg PO DAILY [facility] Last Admin: 09/24/21 08:15 Dose: 1,000 mcg Furosemide (Furosemide 10 Mg/Ml 2 Ml Vial) 40 mg IV BID [facility] Last Admin: 09/24/21 08:15 Dose: 40 mg Sodium Chloride (Saline 0.9%) 1,000 mls @ 20 mls/hr IV .Q24H [facility] Last Admin: 09/23/21 09:05 Dose: 20 mls/hr Cefepime HCl 2 gm/ Sodium (Chloride) 100 mls @ 25 mls/hr IVPB Q8HR [facility]; Protocol Last Admin: 09/24/21 08:14 Dose: 25 mls/hr Insulin Aspart (Insulin Aspart (Novolog) 100 Unit/Ml Vial) 0 unit SQ ACHS [facility]; Protocol Last Admin: 09/24/21 12:33 Dose: 2 unit Miscellaneous Information (Pneumonia Protocol Utilized 1 Each Misc) 1 each PO ONCE PRN PRN Reason: Per Protocol Miscellaneous Information (Magnesium Replacement Protocol 1 Each Misc) 1 each MISCELLANE DAILY PRN; Protocol PRN Reason: Per Protocol Ondansetron HCl (Ondansetron 4 Mg/2 Ml Vial) 4 mg IVP Q6HR PRN PRN Reason: Nausea And Vomiting Last Admin: 09/20/21 17:17 Dose: 4 mg Pantoprazole Sodium (Pantoprazole 40 Mg Tablet) 40 mg PO AC-BRKFST [facility] Last Admin: 09/24/21 08:15 Dose: 40 mg Senna (Sennosides 8.6 Mg Tab) 8.6 mg PO BID PRN PRN Reason: Constipation Trazodone HCl (Trazodone Hcl 100 Mg Tab) 100 mg PO [facility] Last Admin: 09/24/21 00:00 Dose: 100 mg Physical exam: Patient is sitting up at the side of the bed being , prepped for thoracentesis, no acute distress, awake alert and oriented.. HEENT: Normocephalic. Neck is supple. Pupils reactive. Nostrils clear. Oral cavity is moist. Neck reveals no JVD, carotid bruits, or thyromegaly. CHEST EXAMINATION: Trachea is central. Symmetrical expansion. diminished sounds bilaterally and minimal basilar crackles. No wheezing. CARDIAC: Normal S1, S2 with no gallops. No murmurs ABDOMEN: Soft. Bowel sounds present. Nontender. No organomegaly. No abdominal bruits. Extremities: Bilateral trace edema. No clubbing or cyanosis Neurologically awake, alert, oriented x3 with well-coordinated movements. diffuse weakness noted Skin: No rash or skin lesions. Psychiatric: Cooperative. Non-suicidal, less anxious. Musculoskeletal: No joint swelling or deformity. Normal range of motion. Assessment: Left lower lobe infiltrate/pneumonia. Possible healthcare associated. Recent admission with [facility] requiring HD, A fib, NSTEMI , possible thrombocytopenia/TTP and was transferred to [facility] on 08/27/2021 Acute COPD exacerbation. large leftpleural effusions status post thoracentesis with approximately 1.5 L removed and sent for culture and analysis Large circumferential pericardial effusion measuring approximately 2.5 cm with thrombus formation in the pericardial effusion with no diastolic collapse to suggest findings of cardiac tamponade Normocytic anemia with thrombocytopenia Hypertension Hyperlipidemia GERD Diabetes type 2 [id number], uncontrolled with hypoglycemia Diabetic peripheral neuropathy bilateral Obstructive sleep apnea not using any CPAP at home currently Borderline aneurysm of the ascending aorta Anxiety/depression Prior history of smoking DVT prophylaxis GI prophylaxis Full code Plan: Patient is maintained on antibiotics in the form of cefepime for pneumonia and pulmonary and ID following. Cardiologyand CT surgery following with no plans for surgical intervention at this time and recommend a repeat echo tomorrow to evalu ate the recent findings of large pericardial effusion with thrombus formation Patient is status post thoracentesis on the left at approximately 1.5 L removed and sent for analysis and culture Recommend to continue with IV diuresis and follow up labs and in the a.m. recommend holding anticoagulation for now and will discuss with cardio about resuming PT/OT to evaluate the patient Recommend to continue using incentive spirometer at least 10 times every hour while awake. Due to multiple complex medical issues, prognosis is guarded The impression and plan of care has been dictated by Tiana Yuen Nurse Practitioner as directed. Dr. Lashay MD I have performed a history and examination and MDM of this patient, discussed the same with the dictator, and agree with the dictator's assessment and plan as written ,documented as a scribe. Based on total visit time, I have performed more than 50% of the visit. Objective - Vital Signs Vital signs: Vital Signs Temp 99.9 F H 09/24/21 01:33 Pulse 93 09/24/21 08:47 Resp 18 09/24/21 01:33 BP 112/73 09/24/21 01:33 Pulse Ox 98 09/24/21 08:37 FiO2 21 09/24/21 08:37 Intake & Output 09/23/21 09/24/21 09/24/21 18:59 06:59 18:59 Output Total 1500 800 Balance -1500 -800 Output: Urine 1500 800 Other: Voiding Method Toilet # Bowel Movements 1 - Labs CBC & Chem 7: 09/22/21 09:18 09/24/21 06:20 Labs: Abnormal Lab Results - Last 24 Hours (Table) 09/22/21 09/23/21 09/23/21 Range/Units 09:18 06:16 11:51 Sodium (137-145) mmol/L Chloride 110 H (98-107) mmol/L BUN 23 H (7-17) mg/dL Glucose 139 H (74-99) mg/dL POC Glucose (mg/dL) 292 H (70-110) mg/dL Calcium 8.2 L (8.4-10.2) mg/dL Albumin (PEP) 2.72 L (3.80-4.90) g/dL Jafsr-5-Ymotkdcye 0.55 H (0.10-0.40) g/dL 09/23/21 09/23/21 09/24/21 Range/Units 16:35 19:30 06:20 Sodium 136 L (137-145) mmol/L Chloride (98-107) mmol/L BUN 25 H (7-17) mg/dL Glucose 146 H (74-99) mg/dL POC Glucose (mg/dL) 344 H 150 H (70-110) mg/dL Calcium 8.1 L (8.4-10.2) mg/dL Albumin (PEP) (3.80-4.90) g/dL Ktahb-0-Vegfuzays (0.10-0.40) g/dL 09/24/21 Range/Units 07:08 Sodium (137-145) mmol/L Chloride (98-107) mmol/L BUN (7-17) mg/dL Glucose (74-99) mg/dL POC Glucose (mg/dL) 155 H (70-110) mg/dL Calcium (8.4-10.2) mg/dL Albumin (PEP) (3.80-4.90) g/dL Pysjw-0-Iqksiuhat (0.10-0.40) g/dL Microbiology - Last 24 Hours (Table) 09/19/21 06:00 Blood Culture - Preliminary Blood No Growth after 120 hours 09/19/21 05:40 Blood Culture - Preliminary Blood No Growth after 120 hours 09/19/21 21:06 Blood Culture - Preliminary Blood No Growth after 96 hours
[2021-09-24] MEDS: SODIUM CHLORIDE 0.9% 1,000 ML IV SCH (16:23)
[2021-09-24 16:25] LABS: Glucose,Whole Blood 281 mg/dL (70-110)
[2021-09-24] MEDS: HYDROcodone/APAP 5-325MG 1 EACH TAB PO PRN (19:45)
[2021-09-24 21:13] LABS: Glucose,Whole Blood 304 mg/dL (70-110)
[2021-09-24 23:31] LABS: Appearance,BF Slightly Hazy
[2021-09-24] MEDS: traZODone HCL 100 MG TAB PO SCH ×2 (23:33)
[2021-09-25] MEDS: ONDANSETRON 4 MG/2 ML VIAL IVP PRN (02:59)
[2021-09-25 03:26] LABS: Glucose, BF Source Pleural Fluid; Glucose, Body Fluid 182 mg/dL; LDH, Body Fluid Source Pleural Fluid; T. Protein, Body Fluid Source Pleural Fluid; Total Protein, Body Fluid 2590 mg/dL
[2021-09-25] MEDS: HYDROcodone/APAP 5-325MG 1 EACH TAB PO PRN ×2 (06:18→18:06)
[2021-09-25 07:07] LABS: Glucose,Whole Blood 168 mg/dL (70-110)
[2021-09-25 07:53] LABS: African American GFR (CKD) 75 (>60 ml/min/1.73 sqM); Anion Gap -1 mmol/L; Blood Urea Nitrogen 26 mg/dL (7-17); Calcium 8.2 mg/dL (8.4-10.2); Carbon Dioxide 30 mmol/L (22-30); Chloride 107 mmol/L (98-107); Glucose 154 mg/dL (74-99); Non-African American GFR(CKD) 65 (>60 ml/min/1.73 sqM); Potassium 3.7 mmol/L (3.5-5.1); Sodium 136 mmol/L (137-145)
[2021-09-25 08:07] LABS: Basophils % (A) 1 %; Eosinophils # (A) 0.2 k/uL (0-0.7); Eosinophils % (A) 3 %; HCT 24.5 % (34.0-46.0); HGB 7.7 gm/dL (11.4-16.0); Hypochromasia Moderate; Lymphocytes # (A) 0.6 k/uL (1.0-4.8); Lymphocytes % (A) 11 %; MCH 30.1 pg (25.0-35.0); MCHC 31.3 g/dL (31.0-37.0); MCV 96.3 fL (80.0-100.0); Mean Platelet Volume 8.2; Monocytes # (A) 0.5 k/uL (0-1.0); Monocytes % (A) 8 %; Neutrophils # (A) 4.2 k/uL (1.3-7.7); Neutrophils % (A) 75 %; Platelet Count 258 k/uL (150-450); RBC 2.55 m/uL (3.80-5.40); RDW 15.6 % (11.5-15.5); WBC 5.6 k/uL (3.8-10.6)
[2021-09-25] MEDS: INSULIN ASPART (NovoLOG) 100 UNIT/ML VIAL SQ SCH ×4 (08:42→21:57)
[2021-09-25] MEDS: PANTOPRAZOLE 40 MG TABLET PO SCH (08:42)
[2021-09-25] MEDS: FUROSEMIDE 10 MG/ML 2 ML VIAL IV SCH ×2 (08:42→20:57)
[2021-09-25] MEDS: CYANOCOBALAMIN 500 MCG TAB PO SCH (08:42)
[2021-09-25] MEDS: CEFEPIME 2 GM in SODIUM CHLORIDE 0.9% 100 ML IVPB SCH ×2 (08:43→17:08)
[2021-09-25] MEDS: IPRATROPIUM-ALBUTEROL 3 ML NEB INHALATION PRN ×3 (09:12→19:45)
--- NOTE | 2021-09-25 10:52 | CA ---
Transthoracic Echo Report Name: Samantha Priest Age: 66 Gender: F : 1955 Exam Date: 09/25/2021 08:17 Exam Location: [place] [facility] Ht (in): 66 Wt (lb): 211 Ordering Physician: Shruti Richards Attending/Referring Phys: Structural Steel Worker Apprentice Chanel Hodgson RDCS Procedure CPT: Indications: Repeat on 09/25 to evaluate pericardial effusion Cardiac Hx: Technical Quality: Fair Contrast 1: Total Dose (mL): Contrast 2: Total Dose (mL): MEASUREMENTS (Male / Female) Normal Values FINDINGS Left Ventricle Limited study. Left ventricular ejection fraction is estimated at 60-65 %. Right Ventricle Right Atrium Left Atrium Mitral Valve Aortic Valve Tricuspid Valve Pulmonic Valve Pericardium Small pericardial pleural effusion. Aorta CONCLUSIONS Normal left ventricular ejection fraction 60-65% Small to moderate circumferential pericardial effusion measuring 1.2 cm with small amount of thrombin/clot throughout. No evidence of cardiac tamponade. Previewed by: Dr. Bobby Case DO (Electronically Signed) Final Date: 25 September 2021 10:52
[2021-09-25 11:34] LABS: Glucose,Whole Blood 152 mg/dL (70-110)
[2021-09-25 12:14] VITALS: BMI 33.0
--- NOTE | 2021-09-25 12:28 | P.PN ---
Subjective This is a 65-year-old female with a past medical history significant for Recent admission and transfer to [facility] 08/2021 with Acute renal failure s/p hemodialysis, severe thrombocytopenia and concern for TTP at that time did not require plasmapheresis, Typical atrial flutter (diagnosed at [facility] 08/2021) s/p MARIA ELENA/cardioversion on 09/03/21, hypertension, hyperlipidemia, COPD, obstructive sleep apnea, mild-non obstructive coronary artery disease and 2diabetes. Patient follows in the office with Dr. Aguilar. We have been asked to see the patient in consultation for shortness of breath and pericardial effusion. Patient presents to the emergency department with fever, worsening shortness of breath. She states she was discharged from [facility] 09/11/2021 to [facility] for physical therapy and was discharged home about 1 week ago. Night prior to admission, patient had worsening shortness of breath and was brought to the ER for further evaluation. She also was noted to have fevers and chills. Records obtained from [facility]: Patient was initially transferred to [facility] due to concern for possible TTP. Patient was initially evaluated by Hematology, started on IV steroids, [id number] resulted within normal limits. Platelets improved, steroids were discontinued and hematology signed off. She did not require plasmapheresis. She underwent Temporary hemodialysis, creatinine level normalizied. She was extubated on 09/01/21. Renal biopsy was performed that revealed ATN. She developed atrial flutter with RVR, was initially started on Cardizem and MARIA ELENA/Cardioversion was performed on 09/03/21 restoring normal sinus rhythm. Patient was started on Eliquis. Patient was eventually transferred to inpatient rehab. Echocardiogram revealed EF of 5560%, large circumferential pericardial effusion measuring 2.5 cm with thrombus formation the pericardial effusion. No diastolic collapse or findings of cardiac tamponade 09/25/2021 Patient seen and examined at bedside, no distress. She underwent left sided thoracentesis yesterday with Pulmonary with 1.2L fluid removed. Patient is feeling better, she states her breathing has significantly improved. Denies any chest pain or palpitations. She is maintained on IV Lasix. I/Os revealed 2150mL output over the past 24 hours. Eliquis is on hold after thoracentesis per pulmonary. Labs: Sodium 136, potassium 3.7, BUN 26, serum creatinine 0.9 PHYSICAL EXAM: VITAL SIGNS: Reviewed. GENERAL: Well-developed in no acute distress. HEENT: Head is normocephalic. Mucous membranes of the mouth are moist. Neck supple. No JVD LUNGS: Respirations even and unlabored. Lungs diminished lung graves bilaterally. HEART: Regular rate and rhythm. S1 and S2 heard. ABDOMEN: Soft. Nondistended. Nontender. EXTREMITIES: Normal range of motion. No clubbing or cyanosis. Peripheral pulses intact. moderate bilateral lower extremity edema NEUROLOGIC: Awake and alert. Oriented x 3. ASSESSMENT: Acute on chronic respiratory failure Moderate pleural effusion Status post left thoracentesis with 1.2L removed on 09/24/21 Pericardial effusion with thrombus formation in the pericardial effusion noted on echo no evidence of tamponade Fever, Chills Possible pneumonia Recent admission and transfer to [facility] 08/2021 with Acute renal failure s/p hemodialysis, severe thrombocytopenia and concern for TTP at that time did not require plasmapheresis Typical atrial flutter (diagnosed at [facility] per records on 08/29/2021) s/p MARIA ELENA/cardioversion on 09/03/21, on Eliquis Hypertension Hyperlipidemia Diabetes, type 2 COPD Obstructive sleep apnea Mild non-obstructive coronary artery disease, per cardiac catheterization in 2019 PLAN: Continue IV lasix at this time Repeat limited echocardiogram completed today revealed improvement in pericardial effusion with EF 60-65%, small to moderate pericardial effusion measuring 1.2 cm with small amount of thrombin/clot throughout. No evidence of cardiac tamponade Monitor I/Os, daily weights, renal function and electrolytes Further recommendations based on clinical course Nurse practitioner note has been reviewed by physician. Signing provider agrees with the documented findings, assessment, and plan of care. Objective - Vital Signs Vital signs: Vital Signs Temp 98.4 F 09/25/21 07:15 Pulse 80 09/25/21 09:26 Resp 18 09/25/21 07:15 BP 119/84 09/25/21 07:15 Pulse Ox 97 09/25/21 07:15 FiO2 21 09/24/21 08:37 Intake & Output 09/24/21 09/25/21 09/25/21 18:59 06:59 18:59 Intake Total 450 Output Total 2150 Balance -1700 Weight 92.9 kg 92.9 kg Intake: Oral 450 Output: Urine 2150 Other: Voiding Method Toilet Toilet - Labs CBC & Chem 7: 09/25/21 07:21 09/25/21 07:21 Labs: Abnormal Lab Results - Last 24 Hours (Table) 09/24/21 09/24/21 09/25/21 Range/Units 16:24 21:01 07:07 RBC (3.80-5.40) m/uL Hgb (11.4-16.0) gm/dL Hct (34.0-46.0) % RDW (11.5-15.5) % Lymphocytes # (1.0-4.8) k/uL Sodium (137-145) mmol/L BUN (7-17) mg/dL Glucose (74-99) mg/dL POC Glucose (mg/dL) 281 H 304 H 168 H (70-110) mg/dL Calcium (8.4-10.2) mg/dL 09/25/21 09/25/21 09/25/21 Range/Units 07:21 07:21 11:32 RBC 2.55 L (3.80-5.40) m/uL Hgb 7.7 L (11.4-16.0) gm/dL Hct 24.5 L (34.0-46.0) % RDW 15.6 H (11.5-15.5) % Lymphocytes # 0.6 L (1.0-4.8) k/uL Sodium 136 L (137-145) mmol/L BUN 26 H (7-17) mg/dL Glucose 154 H (74-99) mg/dL POC Glucose (mg/dL) 152 H (70-110) mg/dL Calcium 8.2 L (8.4-10.2) mg/dL Microbiology - Last 24 Hours (Table) 09/24/21 11:00 Gram Stain - Preliminary Pleural Fluid Body Fluid Culture - Preliminary 09/19/21 06:00 Blood Culture - Final Blood No Growth after 144 hours 09/19/21 05:40 Blood Culture - Final Blood No Growth after 144 hours 09/19/21 21:06 Blood Culture - Preliminary Blood No Growth after 120 hours 09/24/21 11:00 Fungal Culture - Preliminary Pleural Fluid 09/24/21 11:00 Acid Fast Bacilli Culture - Preliminary Pleural Fluid 09/24/21 11:00 Anaerobic Culture - Preliminary Pleural Fluid
[2021-09-25] MEDS: SODIUM CHLORIDE 0.9% 1,000 ML IV SCH (13:14)
--- NOTE | 2021-09-25 14:12 | P.PN ---
Subjective Progress Note Date: 09/25/21 The patient is a 66-year-old white female with multiple medical problems. She was recently seen in consult when admitted on 08/25/21, with acute kidney injury, anemia, and low platelets in the 20,000 range. The patient had low haptoglobin and elevated LDH. Pathologist review mentioned scattered RBC fragments. The patient was transferred to [facility] for plasmapheresis for presumed TTP. Her ADAMTS 13 however came back in the normal range. The patient was discharged home from [facility], and readmitted because of shortness of breath starting overnight. She was found to have left lower lobe infiltrate with associated small effusion. The patient denies having any chest pain. The patient denies having any cough sputum production chest tightness or wheezing. No fever or chills. Note that the patient was released from [facility] while being on anticoagulation with Eliquis. The white cell count of 5.5 with hemoglobin of 7.9 and platelet count of 182. As such, the hematologic profile is essentially improved. Creatinine is at 0.8 with a BUN of 18 and the sodium level of 138. Pro-calcitonin level is at 0.08. She has chronic edema lower extremities bilaterally. Previous echocardiogram that showed a preserved LV function. Previous Doppler of the lower extremities have shown no evidence of any DVTs. Previous CT scan of the chest has shown a borderline aneurysm of the ascending aorta. Lungs are essentially clear. The patient has been started on antibiotics empirically and the patient is currently on IV Rocephin and vancomycin. On 09/22/2021 patient seen in follow-up on medical surgical floor. Patient states she continues to have exertional dyspnea, she is currently on 4 L of oxygen satting 97%. Afebrile, hemodynamics are stable, and a complete chest discomfort, lung sounds reveal diminished breath sounds at the bases, her chest x-ray on admission showed left pleural effusion and left lower lobe infiltrate, cardiomegaly. Follow-up chest x-ray showed persistent left basilar infiltrate and left pleural effusion, the right lung was clear. ProBNP level was 993, single set of troponin was negative. Patient was tested for COVID-19 and was negative, progesterone level is negative at 0.08. CTA chest showed no evidence of central pulmonary embolism, and moderate pericardial effusion. Patient has been started on IV diuretics at 20 mg of Lasix twice daily. She is diuresing, although today's weight is not recorded. Today's labs have been reviewed, white blood cell count is 5.5, hemoglobin is 7.9, sodium is 139, potassium is 4.3, c hloride is 111, B1 is 20, creatinine 0.92. Urine Legionella antigen was negative. Echocardiogram has been ordered and pending at this time. 09/23/2021 patient is seen in follow-up on medical surgical floor. Patient states she continues to be short of breath, most of time with exertion, however she's had episodes of sudden shortness of breath without exertion just sitting in the chair. Denies any chest discomfort, no cough, no phlegm production. No hemoptysis. Patient has been subjected to diuretics, she remains on Lasix 40 mg IV push twice daily, and she is maintaining negative fluid balance of 2450 ML over last 24 hours, today's labs have been reviewed. BMP showed sodium of 137, potassium is 4.0, chloride is 110, BUN is 23 creatinine 0.91. Pro-calcitonin level has been low at 0.08, and follow-up pro-calcitonin was 0.14, still not significantly elevated. Patient remains on cefepime, vancomycin has been discontinued, ID service is following. Blood cultures have shown no growth. Patient has had no fever or chills. Patient remains on Eliquis for history of atrial flutter. Follow-up chest x-ray today showing left lower lobe infiltrate, atelectasis and left pleural effusion unchanged compared to yesterday's exam. Echocardiogram has been reviewed showing preserved LV function with EF of 55- 60%, and he did not a large circumferential pericardial effusion measuring 2.5 c m with thrombus formation in the pericardial effusion. There was no diastolic collapse or findings of cardiac tamponade. Yesterday's hemoglobin is 7.9, platelet count is 214, renal profile was unremarkable, electrolytes were unremarkable. Suspect possibility of left hemothorax, we will obtain ultrasound of the chest for possibility of diagnostic and therapeutic thoracentesis. On 09/24/2021 patient seen in follow-up on medical surgical floor. Yesterday's ultrasound of the chest showed left pleural effusion of 10.8 cm. Across was placed on hold, patient remains on empiric antibiotics at this point, vancomycin has been discontinued cefepime continues. Pro-calcitonin level has been low. Patient has been afebrile, no cough, no phlegm production, no chest congestion. The plan is to proceed with therapy and diagnostic left-sided thoracentesis today. This was done at the bedside with Dr. Drew, and 1.25 liters of dark thin pleural fluid was removed, nonbloody, and this was sent for analysis, cytology of cultures. Patient continues on diuretics with Lasix 40 mg twice a day, he is in -2.3 L net fluid balance, lower extremity edema is improving. Patient is in sinus mechanism hemodynamically stable. The patient is seen today 09/25/2021 in follow-up on the regular medical floor. She is sitting up in a chair at the bedside. Awake and alert in no acute distress. She is maintaining O2 saturations in the 90s on 3 L/m per nasal cannula. She's afebrile. Hemodynamically stable. She did undergo a left-sided thoracentesis yesterday. Fluid analysis reveals possible exudate with a total protein of 2.5 and LDH 272. Cultures and cytology pending. White count 5.6. Hemoglobin 7.7. Platelets 2:15. Sodium 136. Potassium 3.7. BUN 26. Creatinine 0.92. Glucose 152. She is continued on bronchodilators. Antibiotics in the form of cefepime. Remains on IV Lasix 40 mg twice a day. Currently in a -2.3 L balance. Objective - Vital Signs Vital signs: Vital Signs Temp 98.4 F 09/25/21 07:15 Pulse 80 09/25/21 09:26 Resp 18 09/25/21 07:15 BP 119/84 09/25/21 07:15 Pulse Ox 97 09/25/21 07:15 FiO2 21 09/24/21 08:37 Intake & Output 09/24/21 09/25/21 09/25/21 18:59 06:59 18:59 Intake Total 450 Output Total 2150 Balance -1700 Weight 92.9 kg 92.9 kg Intake: Oral 450 Output: Urine 2150 Other: Voiding Method Toilet Toilet - Exam GENERAL EXAM: Alert, pleasant, 66 year old female patient, on 2 L nasal cannula, on room air with a pulse ox of 97% comfortable in no apparent distress. HEAD: Normocephalic/atraumatic. EYES: Normal reaction of pupils, equal size. Conjunctiva pink, sclera white. NOSE: Clear with pink turbinates. THROAT: No erythema or exudates. NECK: No masses, no JVD, no thyroid enlargement, no adenopathy. CHEST: No chest wall deformity. Symmetrical expansion. LUNGS: Equal air entry with crackles in the bilateral bases. CVS: Regular rate and rhythm, normal S1 and S2, no gallops, no murmurs, no rubs ABDOMEN: Soft, nontender. No hepatosplenomegaly, normal bowel sounds, no guarding or rigidity. EXTREMITIES: No clubbing, no edema, no cyanosis, 2+ pulses and upper and lower extremities. MUSCULOSKELETAL: Muscle strength and tone normal. SPINE: No scoliosis or deformity SKIN: No rashes CENTRAL NERVOUS SYSTEM: No focal deficits, tone is normal in all 4 extremities. PSYCHIATRIC: Alert and oriented -3. Appropriate affect. Intact judgment and insight. - Labs CBC & Chem 7: 09/25/21 07:21 09/25/21 07:21 Labs: Abnormal Lab Results - Last 24 Hours (Table) 09/24/21 09/24/21 09/25/21 Range/Units 16:24 21:01 07:07 RBC (3.80-5.40) m/uL Hgb (11.4-16.0) gm/dL Hct (34.0-46.0) % RDW (11.5-15.5) % Lymphocytes # (1.0-4.8) k/uL Sodium (137-145) mmol/L BUN (7-17) mg/dL Glucose (74-99) mg/dL POC Glucose (mg/dL) 281 H 304 H 168 H (70-110) mg/dL Calcium (8.4-10.2) mg/dL 09/25/21 09/25/21 09/25/21 Range/Units 07:21 07:21 11:32 RBC 2.55 L (3.80-5.40) m/uL Hgb 7.7 L (11.4-16.0) gm/dL Hct 24.5 L (34.0-46.0) % RDW 15.6 H (11.5-15.5) % Lymphocytes # 0.6 L (1.0-4.8) k/uL Sodium 136 L (137-145) mmol/L BUN 26 H (7-17) mg/dL Glucose 154 H (74-99) mg/dL POC Glucose (mg/dL) 152 H (70-110) mg/dL Calcium 8.2 L (8.4-10.2) mg/dL Microbiology - Last 24 Hours (Table) 09/24/21 11:00 Gram Stain - Preliminary Pleural Fluid Body Fluid Culture - Preliminary 09/19/21 06:00 Blood Culture - Final Blood No Growth after 144 hours 09/19/21 05:40 Blood Culture - Final Blood No Growth after 144 hours 09/19/21 21:06 Blood Culture - Preliminary Blood No Growth after 120 hours 09/24/21 11:00 Fungal Culture - Preliminary Pleural Fluid 09/24/21 11:00 Acid Fast Bacilli Culture - Preliminary Pleural Fluid 09/24/21 11:00 Anaerobic Culture - Preliminary Pleural Fluid Assessment and Plan Assessment: Left sided pleural effusion, under investigation, possibility of left hemothorax is considered versus left lower lobe pneumonia with effusion. The p atient is currently covered with cefepime. Nevertheless, she is not acting toxic or septic and the pro-calcitonin level has been quite low. Status post left-sided thoracentesis on 09/24/2021 with removal of 1.25 L of 10 dark pleural fluid which was sent for analysis, cytology and cultures. Large pericardial effusion with thrombus, of unknown etiology. Echocardiogram showed no evidence of cardiac tamponade. CT surgery has been consulted. Follow-up limited echocardiogram today revealed a small to moderate circumferential pericardial effusion measuring 1.2 cm with small amount of thrombus/clot throughout. No evidence of cardiac tamponade. Left ventricular ejection fraction 60-65% Acute on chronic dyspnea, under investigation Leg edema, chronic with episodic cellulitis involving lower extremity is bilaterally COPD, which appears to be stable Acute kidney injury, secondary to ATN/hypotension recovered Thrombocytopenia, recovered History of diabetes mellitus with diabetic neuropathy. History of sleep apnea syndrome, currently not on CPAP. History of gastroesophageal reflux disease. History of hypertension. History of hyperlipidemia. History of mild pancreatitis. History of arthritis. Prior history of Chinedu-en-Y bariatric surgery for obesity. Mild ascending aortic aneurysm Plan: The patient was seen and evaluated Echocardiogram, labs and medications reviewed Improved and on 2 L nasal cannula Remains on cefepime Remains on IV diuretics Home once cleared by cardiology I have personally seen and examined the patient, performed the documentation and the assessment and plan as written. I have personally seen and examined the patient and reviewed the documentation. I performed a joint evaluation with the nurse practitioner in this evaluation was done more than 20 minutes. I fully agree with the documentation above and the plan of care. Clinically the patient is feeling better as the patient had a left-sided thoracentesis. This was done without any complications. A repeat echo cardiogram shows a persistent moderate amount of pericardial effusion and the findings are essentially stable and echocardiogram. Clinically improved and the patient is currently on room air oxygen. May discontinue the IV cefepime. This will be coordinated along with infectious disease.
--- NOTE | 2021-09-25 14:47 | CONS ---
CONSULTATION DATE OF SERVICE: 09/23/21 I have seen, examined, and agree with the midlevel's findings. I met with this patient for 45 minutes during this consultation. MMSJ / BRITTANYN: [id number] / -03
[2021-09-25 16:37] LABS: Glucose,Whole Blood 219 mg/dL (70-110)
--- NOTE | 2021-09-25 16:40 | P.PN ---
Subjective Progress Note Date: 09/24/21 Principal diagnosis: Fever and possible pneumonia Patient is a 66-year-old patient female with recurrent admissions to the hospital and there was question of TTP and patient presented back to the hospital with increasing shortness of breath, and there is a question of pneumonia patient did have a fever and CT of the chest suggestive of pericardial effusion patient did have echocardiogram with evidence of large pericardial effusion and thrombus but no temponade. Patient is status post left-sided thoracocentesis completed on 09/24/2021 per pulmonary On today's evaluation that is 09/24/2021, the patient remains to be afebrile, the patient is breathing comfortably on nasal cannula oxygen, the patient denies any chest pain and no worsening cough or sputum production no abdominal pain no diarrhea Objective - Vital Signs Vital signs: Vital Signs Temp 99.9 F H 09/24/21 01:33 Pulse 75 09/24/21 11:56 Resp 18 09/24/21 07:25 BP 112/73 09/24/21 01:33 Pulse Ox 98 09/24/21 08:37 FiO2 21 09/24/21 08:37 Intake & Output 09/23/21 09/24/21 09/24/21 18:59 06:59 18:59 Intake Total 450 Output Total 9750 940 1022 Balance -1500 -800 -850 Intake: Oral 450 Output: Urine 0960 588 0913 Other: Voiding Method Toilet Toilet # Bowel Movements 1 - Exam GENERAL DESCRIPTION: An elderly female up in the chair RESPIRATORY SYSTEM: Unlabored breathing , decreased breath sounds at bases HEART: S1 S2 regular rate and rhythm , ABDOMEN: Soft , no tenderness EXTREMITIES: No edema feet - Labs CBC & Chem 7: 09/25/21 07:21 09/25/21 07:21 Labs: Abnormal Lab Results - Last 24 Hours (Table) 09/23/21 09/23/21 09/24/21 Range/Units 16:35 19:30 06:20 Sodium 136 L (137-145) mmol/L BUN 25 H (7-17) mg/dL Glucose 146 H (74-99) mg/dL POC Glucose (mg/dL) 344 H 150 H (70-110) mg/dL Calcium 8.1 L (8.4-10.2) mg/dL 09/24/21 09/24/21 Range/Units 07:08 11:34 Sodium (137-145) mmol/L BUN (7-17) mg/dL Glucose (74-99) mg/dL POC Glucose (mg/dL) 155 H 182 H (70-110) mg/dL Calcium (8.4-10.2) mg/dL Microbiology - Last 24 Hours (Table) 09/19/21 06:00 Blood Culture - Preliminary Blood No Growth after 120 hours 09/19/21 05:40 Blood Culture - Preliminary Blood No Growth after 120 hours 09/19/21 21:06 Blood Culture - Preliminary Blood No Growth after 96 hours Assessment and Plan (1) Fever Current Visit: Yes Status: Acute Code(s): R50.9 - FEVER, UNSPECIFIED SNOMED Code(s): 036850272 Plan: 1patient presented to hospital with increasing shortness of breath and this patient has [id number] hospital x-rays have been suspicious for left-sided effusion and possible atelectasis underlying pneumonia not entirely excluded patient subsequently did have a CT angiogram of the chest did not mention any consultation however the patient did have large effusion confirmed on echocardiogram and mention the clot inside the effusion could be responsible for her symptomatology any fever. CT surgery has been consulted and cardiology is following the patient 2patient did have evidence of left-sided effusion and is status post thoracocentesis cultures pending 3-patient to continue with cefepime while awaiting further workup and cultures to finalize and monitor clinical course closely Time with Patient: Less than 30
--- NOTE | 2021-09-25 16:42 | P.PN ---
Subjective Progress Note Date: 09/25/21 Principal diagnosis: Fever and possible pneumonia Patient is a 66-year-old patient female with recurrent admissions to the hospital and there was question of TTP and patient presented back to the hospital with increasing shortness of breath, and there is a question of pneumonia patient did have a fever and CT of the chest suggestive of pericardial effusion patient did have echocardiogram with evidence of large pericardial effusion and thrombus but no temponade. Patient is status post left-sided thoracocentesis completed on 09/24/2021 per pulmonary On today's evaluation that is 09/25/2021, the patient denies any fever or any chills, the patient is breathing comfortably on nasal cannula oxygen, the patient denies chest pain , did have occasional cough or sputum production , the patient denies abdominal pain no diarrhea Objective - Vital Signs Vital signs: Vital Signs Temp 97.9 F 09/25/21 14:00 Pulse 100 09/25/21 14:00 Resp 17 09/25/21 14:00 BP 90/52 09/25/21 14:00 Pulse Ox 94 L 09/25/21 14:00 FiO2 21 09/24/21 08:37 Intake & Output 09/24/21 09/25/21 09/25/21 18:59 06:59 18:59 Intake Total 450 Output Total 2150 Balance -1700 Weight 92.9 kg 92.9 kg Intake: Oral 450 Output: Urine 2150 Other: Voiding Method Toilet Toilet - Exam GENERAL DESCRIPTION: An elderly female up in the chair RESPIRATORY SYSTEM: Unlabored breathing , decreased breath sounds at bases HEART: S1 S2 regular rate and rhythm , ABDOMEN: Soft , no tenderness EXTREMITIES: No edema feet - Labs CBC & Chem 7: 09/25/21 07:21 09/25/21 07:21 Labs: Abnormal Lab Results - Last 24 Hours (Table) 09/24/21 09/24/21 09/25/21 Range/Units 16:24 21:01 07:07 RBC (3.80-5.40) m/uL Hgb (11.4-16.0) gm/dL Hct (34.0-46.0) % RDW (11.5-15.5) % Lymphocytes # (1.0-4.8) k/uL Sodium (137-145) mmol/L BUN (7-17) mg/dL Glucose (74-99) mg/dL POC Glucose (mg/dL) 281 H 304 H 168 H (70-110) mg/dL Calcium (8.4-10.2) mg/dL 09/25/21 09/25/21 09/25/21 Range/Units 07:21 07:21 11:32 RBC 2.55 L (3.80-5.40) m/uL Hgb 7.7 L (11.4-16.0) gm/dL Hct 24.5 L (34.0-46.0) % RDW 15.6 H (11.5-15.5) % Lymphocytes # 0.6 L (1.0-4.8) k/uL Sodium 136 L (137-145) mmol/L BUN 26 H (7-17) mg/dL Glucose 154 H (74-99) mg/dL POC Glucose (mg/dL) 152 H (70-110) mg/dL Calcium 8.2 L (8.4-10.2) mg/dL Microbiology - Last 24 Hours (Table) 09/24/21 11:00 Gram Stain - Preliminary Pleural Fluid Body Fluid Culture - Preliminary 09/19/21 06:00 Blood Culture - Final Blood No Growth after 144 hours 09/19/21 05:40 Blood Culture - Final Blood No Growth after 144 hours 09/19/21 21:06 Blood Culture - Preliminary Blood No Growth after 120 hours 09/24/21 11:00 Fungal Culture - Preliminary Pleural Fluid 09/24/21 11:00 Acid Fast Bacilli Culture - Preliminary Pleural Fluid 09/24/21 11:00 Anaerobic Culture - Preliminary Pleural Fluid Assessment and Plan (1) Fever Current Visit: Yes Status: Acute Code(s): R50.9 - FEVER, UNSPECIFIED SNOMED Code(s): 546795873 Plan: 1patient presented to hospital with increasing shortness of breath and this patient has [id number] hospital x-rays have been suspicious for left-sided effusion and possible atelectasis underlying pneumonia not entirely excluded patient subsequently did have a CT angiogram of the chest did not mention any consultation however the patient did have large effusion confirmed on echocardiogram and mention the clot inside the effusion could be responsible for her symptomatology any fever. CT surgery has been consulted and cardiology is following the patient 2patient did have evidence of left-sided effusion and is status post thora cocentesis cultures are currently pending 3-patient to continue with cefepime while waiting for the culture finalized and continue supportive care Time with Patient: Less than 30
--- NOTE | 2021-09-25 19:54 | P.PN ---
Subjective Progress Note Date: 09/25/21 Principal diagnosis: Anemia Status Post Thoracentesis, 1.2 Liters removed. Objective - Vital Signs Vital signs: Vital Signs Temp 98.4 F 09/25/21 07:15 Pulse 80 09/25/21 09:26 Resp 18 09/25/21 07:15 BP 119/84 09/25/21 07:15 Pulse Ox 97 09/25/21 07:15 FiO2 21 09/24/21 08:37 Intake & Output 09/24/21 09/25/21 09/25/21 18:59 06:59 18:59 Intake Total 450 Output Total 2150 Balance -1700 Weight 92.9 kg Intake: Oral 450 Output: Urine 2150 Other: Voiding Method Toilet Toilet - Exam - Constitutional General appearance: no acute distress - EENT Eyes: EOMI, PERRLA ENT: hearing grossly normal, normal oropharynx - Neck Neck: no lymphadenopathy - Respiratory Respiratory: Decreased left upper and lower lobes - Improved after thoracentesis - Cardiovascular Rhythm: regular Heart sounds: normal: S1, S2 - Gastrointestinal General gastrointestinal: normal bowel sounds, soft - Integumentary Integumentary: Erythema and edema BLE - Neurologic Neurologic: CNII-XII intact - Musculoskeletal Musculoskeletal: generalized weakness, strength equal bilaterally - Psychiatric Psychiatric: A&O x's 3 - Labs CBC & Chem 7: 09/25/21 07:21 09/25/21 07:21 Labs: Abnormal Lab Results - Last 24 Hours (Table) 09/24/21 09/24/21 09/24/21 Range/Units 11:34 16:24 21:01 RBC (3.80-5.40) m/uL Hgb (11.4-16.0) gm/dL Hct (34.0-46.0) % RDW (11.5-15.5) % Lymphocytes # (1.0-4.8) k/uL Sodium (137-145) mmol/L BUN (7-17) mg/dL Glucose (74-99) mg/dL POC Glucose (mg/dL) 182 H 281 H 304 H (70-110) mg/dL Calcium (8.4-10.2) mg/dL 09/25/21 09/25/21 09/25/21 Range/Units 07:07 07: 07:21 RBC 2.55 L (3.80-5.40) m/uL Hgb 7.7 L (11.4-16.0) gm/dL Hct 24.5 L (34.0-46.0) % RDW 15.6 H (11.5-15.5) % Lymphocytes # 0.6 L (1.0-4.8) k/uL Sodium 136 L (137-145) mmol/L BUN 26 H (7-17) mg/dL Glucose 154 H (74-99) mg/dL POC Glucose (mg/dL) 168 H (70-110) mg/dL Calcium 8.2 L (8.4-10.2) mg/dL Microbiology - Last 24 Hours (Table) 09/24/21 11:00 Gram Stain - Preliminary Pleural Fluid Body Fluid Culture - Preliminary 09/19/21 06:00 Blood Culture - Final Blood No Growth after 144 hours 09/19/21 05:40 Blood Culture - Final Blood No Growth after 144 hours 09/19/21 21:06 Blood Culture - Preliminary Blood No Growth after 120 hours 09/24/21 11:00 Fungal Culture - Preliminary Pleural Fluid 09/24/21 11:00 Acid Fast Bacilli Culture - Preliminary Pleural Fluid 09/24/21 11:00 Anaerobic Culture - Preliminary Pleural Fluid Assessment and Plan Plan: Comments: EKG image reviewed Chest x-ray: report reviewed Assessment and Plan (1) Bicytopenia Narrative/Plan: The patient was transferred to [facility] during her prior admission, due to suspicion for TTP. Pathologist review mention only scattered RBC fragments - Await HFH results - Repeat hemolysis work-up Neg - No identified monoclonal antibodies - Component of B12 deficiency - Continue treatment od underlying infections -With platelets improving, along with renal function, at this time there doesn't appear to be clinical suspicion for recurrent microangiopathic hemolysis. Current Visit: Yes Status: Acute Code(s): D75.89 - OTHER SPECIFIED DISEASES OF BLOOD AND BLOOD-FORMING ORGANS SNOMED Code(s): 03830442 (2) Left lower lobe pneumonia and pleural effusions Narrative/Plan: - Status post 1.2 Liters removed THoracentesis by De. Drew 09/24/21 - This appears to be the main presenting complaint but she feels better after thoracentesis. Defer to the admitting service and Pulmonology ongoing management Current Visit: Yes Status: Acute Code(s): J18.9 - PNEUMONIA, UNSPECIFIED ORGANISM SNOMED Code(s): 679922659
--- NOTE | 2021-09-25 20:02 | P.PN ---
Subjective Progress Note Date: 09/25/21 Patient is a 66-year-old female with a known history of hypertension, hyperlipidemia, diabetes type 2, obstructive sleep apnea not on CPAP at home, bilateral diabetic peripheral neuropathy, anxiety and depression and prior history of smoking presents to ER with complaints of shortness of breath. Patient does have cough without any sputum production. Was also anxious on admission. No fever no chills. Patient was recently discharged from the hospital on 08/27/2021 and was transferred to [facility] for possible TTP and plasmapheresis. Was admitted to the hospital due to acute kidney injury and altered mental status and found to have schistocytes in the peripheral smear and was seen by matology. Due to severe thrombocytopenia patient was transferred to [facility] for plasmapheresis and also worsening renal function. Patient was discharged to [facility] for physical therapy. Patient was discharged home about a week ago. Last night patient developed shortness of breath and could not breathe. Patient's fianc brought her to the hospital. On admission blood pressure 164/77 pulse is 69 respiration 24 and pulse ox 94% on room air. Laboratory showed WBC 5.2 hemoglobin 8.4 and platelets 147 Sodium 139 potassium 3.7 chloride 108 bicarb is 23 BUN 23 and creatinine 0.84 and blood sugar is 220 Liver enzymes are not elevated proBNP 993 TSH 3.38 and coronavirus PCR not detected. Chest x-ray showed there is left pleural effusion and left lower lobe infiltrate which are new compared to old exam. No heart failure seen. Cardiomegaly. EKG showed sinus tachycardia and low QRS voltage. Patient was transferred to [facility] due to concern for possible TTP. Patient was evaluated by oncology and he was placed on steroids. Further work- up was performed she apparently did not require plasmapheresis. Patient developed acute kidney injury and requiring temporary hemodialysis and her creatinine peaked at 4.8. She was last hemodialyzed on 09/07/2021. He with creatinine level was normalized. Patient was also requiring intubation and [facility] anical ventilator due to altered mental status and encephalopathy and also treated for hyponatremia. Patient was successfully extubated. While here she was at [facility] she developed new onset atrial fibrillation with RVR and was started on Cardizem patient was successfully cardioverted. Patient is maintaining sinus rhythm. Patient was also started on Eliquis and also treated for NSTEMI. 2D echocardiogram during hospitalization showed left ventricular ejection fraction 60 to 65%. Steroids were later stopped by hematology. She has to be on Eliquis for 30 days and then anticoagulation needs to be discontinued. Patient was eventually transferred to inpatient rehab at [facility]. 09/20/2021 Patient is currently resting in the bed. Awake alert oriented x3. Breathing status is much better. Continue on duo nebs. No complaints of chest pain. No nausea vomiting abdominal pain or diarrhea. Patient is being continued on antibiotics for possible pneumonia Overnight T-max was 100.4. Currently afebrile. Laboratory showed WBC 3.74 hemoglobin 7.1 platelets 123 Sodium 141 potassium 4.0 chloride 110 bicarb is 20.4 BUN 20.5 and creatinine 0.8 and blood sugar is 1 4010 calcium 8.0 blood sugar is better controlled. Patient is tolerating oral diet. Chest x-ray showed persistent left basilar infiltrate and/or/effusion. Right lung is clear. 09/21/2021 Patient is seen and evaluated in follow-up this morning currently sitting up at the side of the bed extremely weak requiring 2 person assist to get up although ambulating with a walker and standby assistance. Patient continues to have some shortness of breath with exertion although maintained on 1 liter of 02 currently. Patient appears working to breathe. Patient hemoglobin was low this am and sent to [facility] with some hemolysis and a stat cbc has been reordered. Pulmonary and cardiology consulted. Chest xray ordered. Patient did receive a dose of IV lasix today. Labs pending repeat. Patient also continues with fevers and is maintained on IV abx and will consult infectious disease. 09/22/2021 Patient is seen today and was maintaining oxygen saturation of 100% on 4L and weaning as tolerated. Patient is noted to remove her oxygen often while sitting up in the chair. Patient is less dyspneic during conversation. Patient is currently afebrile and is maintained on IV antibiotic therapy in the form of cefepime with ID following. Pleural effusions noted and patient is diuresing with IV lasix. Kidney functions stable. Patient for possible thoracentesis with pulmonary if respiratory status declines. Patient continues to be anxious with episodes of shortness of breath. Encouraged incentive spirometer use and continued cough and deep breathing. Patient denies chest pain or palpitations. Cardiology following as well. 09/23/2021 Patient is seen this morning sitting up in the chair on 2 L via NC and denies worsening shortness of breath. Pulmonary following and CT surgery also consulted for concern of the pericardial effusion noted on echo with no plans for intervention at this time. cardiology following as well as hematology. Chest ultrasound ordered as patient continues with pleural effusion on the left and possible thoracentesis within the next 24 hours. continued on IV lasix for now and will repeat am labs. Patient is afebrile and denies chest pain or palpitations. Recommend to hold eliquis for now for thoracentesis. Patient also reports not having a bowel movement since admission and will add Senokot twice a day 09/24/2021 Patient is seen in follow-up this morning scheduled to undergo thoracentesis on the left status post chest ultrasound with pulmonary. Patient is currently being prepped for the thoracentesis and fluid culture and analysis will be sent. Patient's Eliquis has been on hold and will discuss with cardiology about resuming after thoracentesis. Patient is continued on IV cefepime and blood cultures have been negative. Cardiology following as well and recommend repeat echo in the morning as the echo showed an EF of 55-60% with a large circumferential pericardial effusion measuring approximately 2.5 cm with thrombus formation in the pericardial effusion with no diastolic collapse to suggest findings of cardiac tamponade. Patient is afebrile and denies worsening shortness of breath or any chest pain. Patient tolerating diet and did have a bowel movement last night. 09/25/2021 Patient is seen today and repeat echo with no evidence of tamponade. Patient is status post thoracentesis and reports to feeling shortness of breath improved. Patient is currently on room air occasionally using 2-3 liters. Patient is afebrile and is continued on IV cefepime. Awaiting cultures from the thoracentesis to determine if requiring discharge antibiotics. Encouraged increased activity as tolerated. Patient is weak. Review of systems: Constitutional: no reports of fatigue, no reports of fever, or chills Cardiovascular: No reports of chest pain or palpitations Respiratory: no reports of shortness of breath and reports feeling improved, no reports of cough GI: No reports of nausea, vomiting, or diarrhea : No reports of dysuria or retention Neurovascular: reports of generalized weakness All medications have been reviewed Active Medications Acetaminophen (Acetaminophen Tab 325 Mg Tab) 650 mg PO Q6HR PRN PRN Reason: Fever and/ or Pain Last Admin: 09/24/21 08:15 Dose: 650 mg Albuterol/Ipratropium (Ipratropium-Albuterol 3 Ml Neb) 3 ml INHALATION RT-QID PRN PRN Reason: Shortness Of Breath Or Wheezing Last Admin: 09/24/21 11:56 Dose: 3 ml Cyanocobalamin (Cyanocobalamin 500 Mcg Tab) 1,000 mcg PO DAILY [facility] Last Admin: 09/24/21 08:15 Dose: 1,000 mcg Furosemide (Furosemide 10 Mg/Ml 2 Ml Vial) 40 mg IV BID JAQUELINE Last Admin: 09/24/21 08:15 Dose: 40 mg Sodium Chloride (Saline 0.9%) 1,000 mls @ 20 mls/hr IV .Q24H [facility] Last Admin: 09/23/21 09:05 Dose: 20 mls/hr Cefepime HCl 2 gm/ Sodium (Chloride) 100 mls @ 25 mls/hr IVPB Q8HR [facility]; Protocol Last Admin: 09/24/21 08:14 Dose: 25 mls/hr Insulin Aspart (Insulin Aspart (Novolog) 100 Unit/Ml Vial) 0 unit SQ ACHS [facility]; Protocol Last Admin: 09/24/21 12:33 Dose: 2 unit Miscellaneous Information (Pneumonia Protocol Utilized 1 Each Misc) 1 each PO ONCE PRN PRN Reason: Per Protocol Miscellaneous Information (Magnesium Replacement Protocol 1 Each Misc) 1 each MISCELLANE DAILY PRN; Protocol PRN Reason: Per Protocol Ondansetron HCl (Ondansetron 4 Mg/2 Ml Vial) 4 mg IVP Q6HR PRN PRN Reason: Nausea And Vomiting Last Admin: 09/20/21 17:17 Dose: 4 mg Pantoprazole Sodium (Pantoprazole 40 Mg Tablet) 40 mg PO [id number] [facility] Last Admin: 09/24/21 08:15 Dose: 40 mg Senna (Sennosides 8.6 Mg Tab) 8.6 mg PO BID PRN PRN Reason: Constipation Trazodone HCl (Trazodone Hcl 100 Mg Tab) 100 mg PO HS [facility] Last Admin: 09/24/21 00:00 Dose: 100 mg Physical exam: Patient is sitting up in the chair, no acute distress, awake alert and oriented.. HEENT: Normocephalic. Neck is supple. Pupils reactive. Nostrils clear. Oral cavity is moist. Neck reveals no JVD, carotid bruits, or thyromegaly. CHEST EXAMINATION: Trachea is central. Symmetrical expansion. diminished sounds bilaterally and minimal basilar crackles. No wheezing. CARDIAC: Normal S1, S2 with no gallops. No murmurs ABDOMEN: Soft. Bowel sounds present. Nontender. No organomegaly. No abdominal bruits. Extremities: Bilateral trace edema. No clubbing or cyanosis Neurologically awake, alert, oriented x3 with well-coordinated movements. diffu se weakness noted Skin: No rash or skin lesions. Psychiatric: Cooperative. Non-suicidal, less anxious. Musculoskeletal: No joint swelling or deformity. Normal range of motion. Assessment: Left lower lobe infiltrate/pneumonia. Possible healthcare associated. Recent admission with [facility] requiring HD, A fib, NSTEMI , possible thrombocytopenia/TTP and was transferred to [facility] on 08/27/2021 Acute COPD exacerbation. large left pleural effusions status post thoracentesis with approximately 1.5 L removed and sent for culture and analysis Large circumferential pericardial effusion measuring approximately 2.5 cm with thrombus formation in the pericardial effusion with no diastolic collapse to suggest findings of cardiac tamponade Normocytic anemia with thrombocytopenia Hypertension Hyperlipidemia GERD Diabetes type 2 [id number], uncontrolled with hypoglycemia Diabetic peripheral neuropathy bilateral Obstructive sleep apnea not using any CPAP at home currently Borderline aneurysm of the ascending aorta Anxiety/depression Prior history of smoking DVT prophylaxis GI prophylaxis Full code Plan: Patient is maintained on antibiotics in the form of cefepime for pneumonia and pulmonary and ID following. Cardiology and CT surgery following with no plans for surgical intervention at this time and repeat echo shows pericardial effusion with thrombus with no sign of tamponade and ef is 55-60% Patient is status post thoracentesis on the left at approximately 1.2 L removed and sent for analysis and culture, awaiting culture per ID to determine if continued abx are required. Recommend to continue with IV diuresis and follow up labs and in the a.m. recommend holding anticoagulation for now and will discuss with cardio about resuming on discharge PT/OT to evaluate the patient Recommend to continue using incentive spirometer at least 10 times every hour while awake. Due to multiple complex medical issues, prognosis is guarded The impression and plan of care has been dictated by Taina Yuen, Nurse Practitioner as directed. Dr. Lashay MD I have performed a history and examination and MDM of this patient, discussed the same with the dictator, and agree with the dictator's assessment and plan as written ,documented as a scribe. Based on total visit time, I have performed more than 50% of the visit. Objective - Vital Signs Vital signs: Vital Signs Temp 98.4 F 09/25/21 07:15 Pulse 80 09/25/21 09:26 Resp 18 09/25/21 07:15 BP 119/84 09/25/21 07:15 Pulse Ox 97 09/25/21 07:15 FiO2 21 09/24/21 08:37 Intake & Output 09/24/21 09/25/21 09/25/21 18:59 06:59 18:59 Intake Total 450 Output Total 2150 Balance -1700 Weight 92.9 kg Intake: Oral 450 Output: Urine 2150 Other: Voiding Method Toilet Toilet - Labs CBC & Chem 7: 09/25/21 07:21 09/25/21 07:21 Labs: Abnormal Lab Results - Last 24 Hours (Table) 09/24/21 09/24/21 09/24/21 Range/Units 11:34 16:24 21:01 RBC (3.80-5.40) m/uL Hgb (11.4-16.0) gm/dL Hct (34.0-46.0) % RDW (11.5-15.5) % Lymphocytes # (1.0-4.8) k/uL Sodium (137-145) mmol/L BUN (7-17) mg/dL Glucose (74-99) mg/dL POC Glucose (mg/dL) 182 H 281 H 304 H (70-110) mg/dL Calcium (8.4-10.2) mg/dL 09/25/21 09/25/21 09/25/21 Range/Units 07:07 07: 07:21 RBC 2.55 L (3.80-5.40) m/uL Hgb 7.7 L (11.4-16.0) gm/dL Hct 24.5 L (34.0-46.0) % RDW 15.6 H (11.5-15.5) % Lymphocytes # 0.6 L (1.0-4.8) k/uL Sodium 136 L (137-145) mmol/L BUN 26 H (7-17) mg/dL Glucose 154 H (74-99) mg/dL POC Glucose (mg/dL) 168 H (70-110) mg/dL Calcium 8.2 L (8.4-10.2) mg/dL Microbiology - Last 24 Hours (Table) 09/24/21 11:00 Gram Stain - Preliminary Pleural Fluid Body Fluid Culture - Preliminary 09/19/21 06:00 Blood Culture - Final Blood No Growth after 144 hours 09/19/21 05:40 Blood Culture - Final Blood No Growth after 144 hours 09/19/21 21:06 Blood Culture - Preliminary Blood No Growth after 120 hours 09/24/21 11:00 Fungal Culture - Preliminary Pleural Fluid 09/24/21 11:00 Acid Fast Bacilli Culture - Preliminary Pleural Fluid 09/24/21 11:00 Anaerobic Culture - Preliminary Pleural Fluid
[2021-09-25 20:54] LABS: Glucose,Whole Blood 281 mg/dL (70-110)
[2021-09-25] MEDS: traZODone HCL 100 MG TAB PO SCH (20:57)
[2021-09-26] MEDS: FUROSEMIDE 10 MG/ML 2 ML VIAL IV SCH ×3 (04:12→20:34)
[2021-09-26] MEDS: CEFEPIME 2 GM in SODIUM CHLORIDE 0.9% 100 ML IVPB SCH ×3 (04:13→15:14)
[2021-09-26 07:12] LABS: Basophils % (A) 1 %; Eosinophils # (A) 0.3 k/uL (0-0.7); Eosinophils % (A) 6 %; Hypochromasia Moderate; Lymphocytes # (A) 0.7 k/uL (1.0-4.8); Lymphocytes % (A) 13 %; MCH 31.3 pg (25.0-35.0); MCV 97.9 fL (80.0-100.0); Macrocytosis Slight; Mean Platelet Volume 8.2; Monocytes # (A) 0.5 k/uL (0-1.0); Monocytes % (A) 8 %; Neutrophils # (A) 3.7 k/uL (1.3-7.7); Neutrophils % (A) 69 %; Platelet Count 264 k/uL (150-450); RBC 2.55 m/uL (3.80-5.40); WBC 5.4 k/uL (3.8-10.6)
[2021-09-26] MEDS: SODIUM CHLORIDE 0.9% 1,000 ML IV SCH (07:20)
[2021-09-26 07:26] LABS: Glucose,Whole Blood 154 mg/dL (70-110)
[2021-09-26 07:34] LABS: African American GFR (CKD) >90 (>60 ml/min/1.73 sqM); Anion Gap 3 mmol/L; Blood Urea Nitrogen 26 mg/dL (7-17); Calcium 8.3 mg/dL (8.4-10.2); Carbon Dioxide 28 mmol/L (22-30); Chloride 106 mmol/L (98-107); Glucose 142 mg/dL (74-99); Non-African American GFR(CKD) 79 (>60 ml/min/1.73 sqM); Potassium 3.9 mmol/L (3.5-5.1); Sodium 137 mmol/L (137-145)
[2021-09-26] MEDS: IPRATROPIUM-ALBUTEROL 3 ML NEB INHALATION PRN ×4 (07:51→19:14)
[2021-09-26] MEDS: CYANOCOBALAMIN 500 MCG TAB PO SCH (08:46)
[2021-09-26] MEDS: HYDROcodone/APAP 5-325MG 1 EACH TAB PO PRN ×2 (08:47→20:33)
[2021-09-26] MEDS: PANTOPRAZOLE 40 MG TABLET PO SCH (08:47)
[2021-09-26] MEDS: INSULIN ASPART (NovoLOG) 100 UNIT/ML VIAL SQ SCH ×4 (08:47→21:13)
[2021-09-26 11:47] LABS: Glucose,Whole Blood 269 mg/dL (70-110)
--- NOTE | 2021-09-26 11:57 | P.PN ---
Subjective Progress Note Date: 09/26/21 The patient is a 66-year-old white female with multiple medical problems. She was recently seen in consult when admitted on 08/25/21, with acute kidney injury, anemia, and low platelets in the 20,000 range. The patient had low haptoglobin and elevated LDH. Pathologist review mentioned scattered RBC fragments. The patient was transferred to [facility] for plasmapheresis for presumed TTP. Her ADAMTS 13 however came back in the normal range. The patient was discharged home from [facility], and readmitted because of shortness of breath starting overnight. She was found to have left lower lobe infiltrate with associated small effusion. The patient denies having any chest pain. The patient denies having any cough sputum production chest tightness or wheezing. No fever or chills. Note that the patient was released from [facility] while being on anticoagulation with Eliquis. The white cell count of 5.5 with hemoglobin of 7.9 and platelet count of 182. As such, the hematologic profile is essentially improved. Creatinine is at 0.8 with a BUN of 18 and the sodium level of 138. Pro-calcitonin level is at 0.08. She has chronic edema lower extremities bilaterally. Previous echocardiogram that showed a preserved LV function. Previous Doppler of the lower extremities have shown no evidence of any DVTs. Previous CT scan of the chest has shown a borderline aneurysm of the ascending aorta. Lungs are essentially clear. The patient has been started on antibiotics empirically and the patient is currently on IV Rocephin and vancomycin. On 09/22/2021 patient seen in follow-up on medical surgical floor. Patient states she continues to have exertional dyspnea, she is currently on 4 L of oxygen satting 97%. Afebrile, hemodynamics are stable, and a complete chest discomfort, lung sounds reveal diminished breath sounds at the bases, her chest x-ray on admission showed left pleural effusion and left lower lobe infiltrate, cardiomegaly. Follow-up chest x-ray showed persistent left basilar infiltrate and left pleural effusion, the right lung was clear. ProBNP level was 993, single set of troponin was negative. Patient was tested for COVID-19 and was negative, progesterone level is negative at 0.08. CTA chest showed no evidence of central pulmonary embolism, and moderate pericardial effusion. Patient has been started on IV diuretics at 20 mg of Lasix twice daily. She is diuresing, although today's weight is not recorded. Today's labs have been reviewed, white blood cell count is 5.5, hemoglobin is 7.9, sodium is 139, potassium is 4.3, c hloride is 111, B1 is 20, creatinine 0.92. Urine Legionella antigen was negative. Echocardiogram has been ordered and pending at this time. 09/23/2021 patient is seen in follow-up on medical surgical floor. Patient states she continues to be short of breath, most of time with exertion, however she's had episodes of sudden shortness of breath without exertion just sitting in the chair. Denies any chest discomfort, no cough, no phlegm production. No hemoptysis. Patient has been subjected to diuretics, she remains on Lasix 40 mg IV push twice daily, and she is maintaining negative fluid balance of 2450 ML over last 24 hours, today's labs have been reviewed. BMP showed sodium of 137, potassium is 4.0, chloride is 110, BUN is 23 creatinine 0.91. Pro-calcitonin level has been low at 0.08, and follow-up pro-calcitonin was 0.14, still not significantly elevated. Patient remains on cefepime, vancomycin has been discontinued, ID service is following. Blood cultures have shown no growth. Patient has had no fever or chills. Patient remains on Eliquis for history of atrial flutter. Follow-up chest x-ray today showing left lower lobe infiltrate, atelectasis and left pleural effusion unchanged compared to yesterday's exam. Echocardiogram has been reviewed showing preserved LV function with EF of 55- 60%, and he did not a large circumferential pericardial effusion measuring 2.5 c m with thrombus formation in the pericardial effusion. There was no diastolic collapse or findings of cardiac tamponade. Yesterday's hemoglobin is 7.9, platelet count is 214, renal profile was unremarkable, electrolytes were unremarkable. Suspect possibility of left hemothorax, we will obtain ultrasound of the chest for possibility of diagnostic and therapeutic thoracentesis. On 09/24/2021 patient seen in follow-up on medical surgical floor. Yesterday's ultrasound of the chest showed left pleural effusion of 10.8 cm. Across was placed on hold, patient remains on empiric antibiotics at this point, vancomycin has been discontinued cefepime continues. Pro-calcitonin level has been low. Patient has been afebrile, no cough, no phlegm production, no chest congestion. The plan is to proceed with therapy and diagnostic left-sided thoracentesis today. This was done at the bedside with Dr. Drew, and 1.25 liters of dark thin pleural fluid was removed, nonbloody, and this was sent for analysis, cytology of cultures. Patient continues on diuretics with Lasix 40 mg twice a day, he is in -2.3 L net fluid balance, lower extremity edema is improving. Patient is in sinus mechanism hemodynamically stable. The patient is seen today 09/25/2021 in follow-up on the regular medical floor. She is sitting up in a chair at the bedside. Awake and alert in no acute distress. She is maintaining O2 saturations in the 90s on 3 L/m per nasal cannula. She's afebrile. Hemodynamically stable. She did undergo a left-sided thoracentesis yesterday. Fluid analysis reveals possible exudate with a total protein of 2.5 and LDH 272. Cultures and cytology pending. White count 5.6. Hemoglobin 7.7. Platelets 2:15. Sodium 136. Potassium 3.7. BUN 26. Creatinine 0.92. Glucose 152. She is continued on bronchodilators. Antibiotics in the form of cefepime. Remains on IV Lasix 40 mg twice a day. Currently in a -2.3 L balance. 09/26/2021, the patient is doing well. No specific complaints. The patient continues to be on IV Lasix. The fluid balance is -1.7 L over the past 24 hour s. I also performed a thoracentesis on the patient and she felt much better after thoracentesis. Her LDH level and the pleural fluid was 272 and the total protein was around 2.5. I think this is a transudate. Final cultures sensitivities and cytology are still pending for now. Meanwhile, the patient remains on IV Lasix 40 mg IV push every 12 hours. She is also on empiric antibiotic coverage with IV cefepime. The patient has blood work and the BUN is 26 with a creatinine of 0.7. Platelet count is up to 64 with a hemoglobin of 8.0 and the patient's white cell count of 5.4. Objective - Vital Signs Vital signs: Vital Signs Temp 98.4 F 09/26/21 08:00 Pulse 82 09/26/21 11:35 Resp 16 09/26/21 08:00 BP 120/74 09/26/21 08:00 Pulse Ox 94 L 09/26/21 08:00 FiO2 21 09/24/21 08:37 Intake & Output 09/25/21 09/26/21 09/26/21 18:59 06:59 18:59 Output Total 2500 500 Balance -2500 -500 Weight 92.9 kg 91.626 kg Output: Urine 2500 500 Other: Voiding Method Toilet - Exam GENERAL EXAM: Alert, pleasant, 66 year old female patient, on 2 L nasal cannula, on room air with a pulse ox of 97% comfortable in no apparent distress. HEAD: Normocephalic/atraumatic. EYES: Normal reaction of pupils, equal size. Conjunctiva pink, sclera white. NOSE: Clear with pink turbinates. THROAT: No erythema or exudates. NECK: No masses, no JVD, no thyroid enlargement, no adenopathy. CHEST: No chest wall deformity. Symmetrical expansion. LUNGS: Equal air entry with crackles in the bilateral bases. CVS: Regular rate and rhythm, normal S1 and S2, no gallops, no murmurs, no rubs ABDOMEN: Soft, nontender. No hepatosplenomegaly, normal bowel sounds, no guarding or rigidity. EXTREMITIES: No clubbing, no edema, no cyanosis, 2+ pulses and upper and lower extremities. MUSCULOSKELETAL: Muscle strength and tone normal. SPINE: No scoliosis or deformity SKIN: No rashes CENTRAL NERVOUS SYSTEM: No focal deficits, tone is normal in all 4 extremities. PSYCHIATRIC: Alert and oriented -3. Appropriate affect. Intact judgment and insight. - Labs CBC & Chem 7: 09/26/21 06:42 09/26/21 06:42 Labs: Abnormal Lab Results - Last 24 Hours (Table) 09/25/21 09/25/21 09/26/21 Range/Units 16:35 20:50 06:42 RBC 2.55 L (3.80-5.40) m/uL Hgb 8.0 L (11.4-16.0) gm/dL Hct 25.0 L (34.0-46.0) % RDW 16.0 H (11.5-15.5) % Lymphocytes # 0.7 L (1.0-4.8) k/uL BUN (7-17) mg/dL Glucose (74-99) mg/dL POC Glucose (mg/dL) 219 H 281 H (70-110) mg/dL Calcium (8.4-10.2) mg/dL 09/26/21 09/26/21 09/26/21 Range/Units 06:42 07:23 11:35 RBC (3.80-5.40) m/uL Hgb (11.4-16.0) gm/dL Hct (34.0-46.0) % RDW (11.5-15.5) % Lymphocytes # (1.0-4.8) k/uL BUN 26 H (7-17) mg/dL Glucose 142 H (74-99) mg/dL POC Glucose (mg/dL) 154 H 269 H (70-110) mg/dL Calcium 8.3 L (8.4-10.2) mg/dL Microbiology - Last 24 Hours (Table) 09/19/21 21:06 Blood Culture - Final Blood No Growth after 144 hours 09/24/21 11:00 Acid Fast Bacilli Smear - Final Pleural Fluid Acid Fast Bacilli Culture - Preliminary 09/24/21 11:00 Gram Stain - Preliminary Pleural Fluid Body Fluid Culture - Preliminary 09/19/21 06:00 Blood Culture - Final Blood No Growth after 144 hours 09/19/21 05:40 Blood Culture - Final Blood No Growth after 144 hours Assessment and Plan Plan: Assessment: Left sided pleural effusion, under investigation, postthoracentesis, the fluid could be transudate, awaiting final cytology. Low protein. LDH is mildly elevated. Large pericardial effusion with thrombus, of unknown etiology. Echocardiogram showed no evidence of cardiac tamponade. CT surgery has been consulted. Status post left-sided thoracentesis on 09/24/2021 with removal of 1.25 L of 10 dark pleural fluid which was sent for analysis, cytology and cultures. Acute on chronic dyspnea, under investigation , much improved and the patient is responding to diuresis Leg edema, chronic with episodic cellulitis involving lower extremity is bilaterally, still on diuretics and the patient is receiving Lasix 40 IV every 12 hours. COPD, which appears to be stable Acute kidney injury, secondary to ATN/hypotension recovered Thrombocytopenia, recovered History of diabetes mellitus with diabetic neuropathy. History of sleep apnea syndrome, currently not on CPAP. History of gastroesophageal reflux disease. History of hypertension. History of hyperlipidemia. History of mild pancreatitis. History of arthritis. Prior history of Chinedu-en-Y bariatric surgery for obesity. Mild ascending aortic aneurysm Plan: Patient tolerated left-sided thoracentesis well, and awaiting fluid cytology . Note that a total of 1.25 L of thin dark fluid which was nonbloody removed and sent for analysis and cytology and cultures Continue with current medical treatment continued diuretics We'll continue to follow patient's clinical course The patient is much improved. Blood work was noted. Antibiotics per infectious disease
[2021-09-26 16:32] LABS: Glucose,Whole Blood 306 mg/dL (70-110)
--- NOTE | 2021-09-26 17:31 | P.PN ---
Subjective Progress Note Date: 09/26/21 Principal diagnosis: Fever and possible pneumonia Patient is a 66-year-old patient female with recurrent admissions to the hospital and there was question of TTP and patient presented back to the hospital with increasing shortness of breath, and there is a question of pneumonia patient did have a fever and CT of the chest suggestive of pericardial effusion patient did have echocardiogram with evidence of large pericardial effusion and thrombus but no temponade. Patient is status post left-sided thoracocentesis completed on 09/24/2021 per pulmonary On today's evaluation that is 09/26/2021, the patient remains to be afebrile, the patient is breathing comfortably on room air, the patient denies chest pain denies any worsening cough or sputum production , the patient denies abdominal pain no diarrhea Objective - Vital Signs Vital signs: Vital Signs Temp 98.1 F 09/26/21 14:00 Pulse 93 09/26/21 15:19 Resp 16 09/26/21 15:19 BP 107/65 09/26/21 14:00 Pulse Ox 94 L 09/26/21 15:06 FiO2 21 09/26/21 15:06 Intake & Output 09/25/21 09/26/21 09/26/21 18:59 06:59 18:59 Output Total 2500 500 Balance -2500 -500 Weight 92.9 kg 91.626 kg Output: Urine 2500 500 Other: Voiding Method Toilet - Exam GENERAL DESCRIPTION: An elderly female up in the chair RESPIRATORY SYSTEM: Unlabored breathing , decreased breath sounds at bases HEART: S1 S2 regular rate and rhythm , ABDOMEN: Soft , no tenderness EXTREMITIES: No edema feet - Labs CBC & Chem 7: 09/26/21 06:42 09/26/21 06:42 Labs: Abnormal Lab Results - Last 24 Hours (Table) 09/25/21 09/26/21 09/26/21 Range/Units 20:50 06:42 06:42 RBC 2.55 L (3.80-5.40) m/uL Hgb 8.0 L (11.4-16.0) gm/dL Hct 25.0 L (34.0-46.0) % RDW 16.0 H (11.5-15.5) % Lymphocytes # 0.7 L (1.0-4.8) k/uL BUN 26 H (7-17) mg/dL Glucose 142 H (74-99) mg/dL POC Glucose (mg/dL) 281 H (70-110) mg/dL Calcium 8.3 L (8.4-10.2) mg/dL 09/26/21 09/26/21 09/26/21 Range/Units 07:23 11:35 16:30 RBC (3.80-5.40) m/uL Hgb (11.4-16.0) gm/dL Hct (34.0-46.0) % RDW (11.5-15.5) % Lymphocytes # (1.0-4.8) k/uL BUN (7-17) mg/dL Glucose (74-99) mg/dL POC Glucose (mg/dL) 154 H 269 H 306 H (70-110) mg/dL Calcium (8.4-10.2) mg/dL Microbiology - Last 24 Hours (Table) 09/19/21 21:06 Blood Culture - Final Blood No Growth after 144 hours 09/24/21 11:00 Acid Fast Bacilli Smear - Final Pleural Fluid Acid Fast Bacilli Culture - Preliminary 09/24/21 11:00 Gram Stain - Preliminary Pleural Fluid Body Fluid Culture - Preliminary Assessment and Plan (1) Fever Current Visit: Yes Status: Acute Code(s): R50.9 - FEVER, UNSPECIFIED [facility] MED Code(s): 751669999 Plan: 1patient presented to hospital with increasing shortness of breath and this patient has [id number] hospital x-rays have been suspicious for left-sided effusion and possible atelectasis underlying pneumonia not entirely excluded patient subsequently did have a CT angiogram of the chest did not mention any consultation however the patient did have large effusion confirmed on echocardiogram and mention the clot inside the effusion could be responsible for her symptomatology any fever. CT surgery is following the patient 2patient did have evidence of left-sided effusion and is status post thoracocentesis cultures are so far negative 3-patient is currently being treated with cefepime and will monitor clinical course closely Time with Patient: Less than 30
--- NOTE | 2021-09-26 18:53 | PN ---
PROGRESS NOTE FOLLOW-UP NOTE: This 66-year-old lady with history of renal failure, status post hemodialysis, thrombocytopenia, atrial flutter, hypertension, dyslipidemia, COPD and mild non- obstructive CAD is admitted to hospital with shortness of breath and pericardial effusion. She also has fever and worsening shortness of breath. An echocardiogram showed a large pericardial effusion without any evidence of tamponade. She had thoracentesis for moderate pleural effusion. On exam, heart rate is 80 beats per minute. Blood pressure is 120/72, respiratory rate 18. Chest exam reveals diminished air entry bilaterally. Heart exam reveals first and second heart sounds, no gallop. Abdomen is soft. Examination of extremities reveals bilateral pitting edema. Labs show a hemoglobin of 8, platelet count is 264. Patient is currently on antibiotics, Lasix 40 IV b.i.d. Eliquis is on hold for the thoracentesis that the patient had. We should resume it if there are no contraindications. MMODL / IJN: [id number] /
[2021-09-26] MEDS: traZODone HCL 100 MG TAB PO SCH (20:35)
[2021-09-26 21:02] LABS: Glucose,Whole Blood 172 mg/dL (70-110)
[2021-09-27] MEDS: CEFEPIME 2 GM in SODIUM CHLORIDE 0.9% 100 ML IVPB SCH ×3 (00:54→15:07)
[2021-09-27] MEDS: SODIUM CHLORIDE 0.9% 1,000 ML IV SCH (04:27)
[2021-09-27 07:09] LABS: Glucose,Whole Blood 160 mg/dL (70-110)
[2021-09-27] MEDS: CYANOCOBALAMIN 500 MCG TAB PO SCH ×2 (07:20→07:56)
[2021-09-27] MEDS: PANTOPRAZOLE 40 MG TABLET PO SCH (07:20)
[2021-09-27] MEDS: INSULIN ASPART (NovoLOG) 100 UNIT/ML VIAL SQ SCH ×4 (07:21→22:29)
[2021-09-27] MEDS: IPRATROPIUM-ALBUTEROL 3 ML NEB INHALATION PRN ×3 (08:25→20:15)
[2021-09-27] MEDS: FUROSEMIDE 10 MG/ML 2 ML VIAL IV SCH ×2 (08:55→21:30)
[2021-09-27 09:33] LABS: Basophils # (A) 0.04 X 10*3/uL (0.00-0.10); Basophils % (A) 0.7 %; Eosinophils # (A) 0.38 X 10*3/uL (0.04-0.35); Eosinophils % (A) 6.9 %; HCT 24.5 % (37.2-46.3); HGB 7.2 g/dL (12.0-15.0); Immature Grans, Automated 0.5 %; Lymphocytes # (A) 0.97 X 10*3/uL (0.90-5.00); Lymphocytes % (A) 17.5 %; MCH 28.7 pg (27.0-32.0); MCHC 29.4 g/dL (32.0-37.0); MCV 97.6 fL (80.0-97.0); Mean Platelet Volume 10.7 fL (9.5-12.2); Monocytes # (A) 0.69 X 10*3/uL (0.20-1.00); Monocytes % (A) 12.5 %; NRBC Per 100 WBC 0 /100 WBCS (0.0-0.0); Neutrophils # (A) 3.42 X 10*3/uL (1.80-7.70); Neutrophils % (A) 61.9 %; Platelet Count 268 X 10*3/uL (140-440); RBC 2.51 X 10*6/uL (4.10-5.20); RDW 15.8 % (11.5-14.5); WBC 5.53 X 10*3/uL (4.50-10.00)
[2021-09-27 09:42] LABS: ALT 9 U/L (8-44); AST 14 U/L (13-35); African American GFR (CKD) 76.7 (60.0-200.0); Albumin 2.4 g/dL (3.8-4.9); Alkaline Phosphatase 101 U/L (41-126); BUN/Creat Ratio 28.22 Ratio (12.00-20.00); Blood Urea Nitrogen 25.4 mg/dL (9.0-27.0); Calcium 8.4 mg/dL (8.7-10.3); Carbon Dioxide 25.3 mmol/L (20.0-27.5); Chloride 104 mmol/L (96-109); Globulin 2.4 g/dL (1.6-3.3); Glucose 147 mg/dL (70-110); Non-African American GFR(CKD) 66.2 (60.0-200.0); Potassium 3.8 mmol/L (3.5-5.5); Sodium 141 mmol/L (135-145); Total Bilirubin <0.15 mg/dL (0.30-1.20); Total Protein 4.8 g/dL (6.2-8.2)
[2021-09-27 11:47] LABS: Glucose,Whole Blood 234 mg/dL (70-110)
--- NOTE | 2021-09-27 12:06 | P.PN ---
Subjective Progress Note Date: 09/27/21 The patient is a 66-year-old white female with multiple medical problems. She was recently seen in consult when admitted on 08/25/21, with acute kidney injury, anemia, and low platelets in the 20,000 range. The patient had low haptoglobin and elevated LDH. Pathologist review mentioned scattered RBC fragments. The patient was transferred to [facility] for plasmapheresis for presumed TTP. Her ADAMTS 13 however came back in the normal range. The patient was discharged home from [facility], and readmitted because of shortness of breath starting overnight. She was found to have left lower lobe infiltrate with associated small effusion. The patient denies having any chest pain. The patient denies having any cough sputum production chest tightness or wheezing. No fever or chills. Note that the patient was released from [facility] while being on anticoagulation with Eliquis. The white cell count of 5.5 with hemoglobin of 7.9 and platelet count of 182. As such, the hematologic profile is essentially improved. Creatinine is at 0.8 with a BUN of 18 and the sodium level of 138. Pro-calcitonin level is at 0.08. She has chronic edema lower extremities bilaterally. Previous echocardiogram that showed a preserved LV function. Previous Doppler of the lower extremities have shown no evidence of any DVTs. Previous CT scan of the chest has shown a borderline aneurysm of the ascending aorta. Lungs are essentially clear. The patient has been started on antibiotics empirically and the patient is currently on IV Rocephin and vancomycin. On 09/22/2021 patient seen in follow-up on medical surgical floor. Patient states she continues to have exertional dyspnea, she is currently on 4 L of oxygen satting 97%. Afebrile, hemodynamics are stable, and a complete chest discomfort, lung sounds reveal diminished breath sounds at the bases, her chest x-ray on admission showed left pleural effusion and left lower lobe infiltrate, cardiomegaly. Follow-up chest x-ray showed persistent left basilar infiltrate and left pleural effusion, the right lung was clear. ProBNP level was 993, single set of troponin was negative. Patient was tested for COVID-19 and was negative, progesterone level is negative at 0.08. CTA chest showed no evidence of central pulmonary embolism, and moderate pericardial effusion. Patient has been started on IV diuretics at 20 mg of Lasix twice daily. She is diuresing, although today's weight is not recorded. Today's labs have been reviewed, white blood cell count is 5.5, hemoglobin is 7.9, sodium is 139, potassium is 4.3, c hloride is 111, B1 is 20, creatinine 0.92. Urine Legionella antigen was negative. Echocardiogram has been ordered and pending at this time. 09/23/2021 patient is seen in follow-up on medical surgical floor. Patient states she continues to be short of breath, most of time with exertion, however she's had episodes of sudden shortness of breath without exertion just sitting in the chair. Denies any chest discomfort, no cough, no phlegm production. No hemoptysis. Patient has been subjected to diuretics, she remains on Lasix 40 mg IV push twice daily, and she is maintaining negative fluid balance of 2450 ML over last 24 hours, today's labs have been reviewed. BMP showed sodium of 137, potassium is 4.0, chloride is 110, BUN is 23 creatinine 0.91. Pro-calcitonin level has been low at 0.08, and follow-up pro-calcitonin was 0.14, still not significantly elevated. Patient remains on cefepime, vancomycin has been discontinued, ID service is following. Blood cultures have shown no growth. Patient has had no fever or chills. Patient remains on Eliquis for history of atrial flutter. Follow-up chest x-ray today showing left lower lobe infiltrate, atelectasis and left pleural effusion unchanged compared to yesterday's exam. Echocardiogram has been reviewed showing preserved LV function with EF of 55- 60%, and he did not a large circumferential pericardial effusion measuring 2.5 c m with thrombus formation in the pericardial effusion. There was no diastolic collapse or findings of cardiac tamponade. Yesterday's hemoglobin is 7.9, platelet count is 214, renal profile was unremarkable, electrolytes were unremarkable. Suspect possibility of left hemothorax, we will obtain ultrasound of the chest for possibility of diagnostic and therapeutic thoracentesis. On 09/24/2021 patient seen in follow-up on medical surgical floor. Yesterday's ultrasound of the chest showed left pleural effusion of 10.8 cm. Across was placed on hold, patient remains on empiric antibiotics at this point, vancomycin has been discontinued cefepime continues. Pro-calcitonin level has been low. Patient has been afebrile, no cough, no phlegm production, no chest congestion. The plan is to proceed with therapy and diagnostic left-sided thoracentesis today. This was done at the bedside with Dr. Drew, and 1.25 liters of dark thin pleural fluid was removed, nonbloody, and this was sent for analysis, cytology of cultures. Patient continues on diuretics with Lasix 40 mg twice a day, he is in -2.3 L net fluid balance, lower extremity edema is improving. Patient is in sinus mechanism hemodynamically stable. The patient is seen today 09/25/2021 in follow-up on the regular medical floor. She is sitting up in a chair at the bedside. Awake and alert in no acute distress. She is maintaining O2 saturations in the 90s on 3 L/m per nasal cannula. She's afebrile. Hemodynamically stable. She did undergo a left-sided thoracentesis yesterday. Fluid analysis reveals possible exudate with a total protein of 2.5 and LDH 272. Cultures and cytology pending. White count 5.6. Hemoglobin 7.7. Platelets 2:15. Sodium 136. Potassium 3.7. BUN 26. Creatinine 0.92. Glucose 152. She is continued on bronchodilators. Antibiotics in the form of cefepime. Remains on IV Lasix 40 mg twice a day. Currently in a -2.3 L balance. 09/26/2021, the patient is doing well. No specific complaints. The patient continues to be on IV Lasix. The fluid balance is -1.7 L over the past 24 hour s. I also performed a thoracentesis on the patient and she felt much better after thoracentesis. Her LDH level and the pleural fluid was 272 and the total protein was around 2.5. I think this is a transudate. Final cultures sensitivities and cytology are still pending for now. Meanwhile, the patient remains on IV Lasix 40 mg IV push every 12 hours. She is also on empiric antibiotic coverage with IV cefepime. The patient has blood work and the BUN is 26 with a creatinine of 0.7. Platelet count is up to 64 with a hemoglobin of 8.0 and the patient's white cell count of 5.4. 09/27/2021, no new complaints and the patient is currently feeling a bit weak. She remains on IV Lasix. She is receiving 40 mg IV Lasix every 12 hours. The patient's overall fluid balance is -3 L over the past 24 hours. She continues to diurese aggressively. On the blood work, the patient is a BUN of 25 and a creatinine 0.9 and sodium level of 141. The white cell count of 5.5 with a hemoglobin of 7.2. Awaiting final fluid cytology. The patient's fluid is likely a transudate. No fever or chills. No other new complaint otherwise for now. The white cell count of 5.5. Objective - Vital Signs Vital signs: Vital Signs Temp 99.2 F 09/27/21 08:00 Pulse 80 09/27/21 11:57 Resp 18 09/27/21 08:00 BP 110/66 09/27/21 08:00 Pulse Ox 95 09/27/21 08:00 FiO2 21 09/26/21 15:06 Intake & Output 09/26/21 09/27/21 09/27/21 18:59 06:59 18:59 Weight 90.7 kg Other: Voiding Method External Catheter - Exam GENERAL EXAM: Alert, pleasant, 66 year old female patient, on room air oxygen HEAD: Normocephalic/atraumatic. EYES: Normal reaction of pupils, equal size. Conjunctiva pink, sclera white. NOSE: Clear with pink turbinates. THROAT: No erythema or exudates. NECK: No masses, no JVD, no thyroid enlargement, no adenopathy. CHEST: No chest wall deformity. Symmetrical expansion. LUNGS: Equal air entry with crackles in the bilateral bases. CVS: Regular rate and rhythm, normal S1 and S2, no gallops, no murmurs, no rubs ABDOMEN: Soft, nontender. No hepatosplenomegaly, normal bowel sounds, no guarding or rigidity. EXTREMITIES: No clubbing, no edema, no cyanosis, 2+ pulses and upper and lower extremities. MUSCULOSKELETAL: Muscle strength and tone normal. SPINE: No scoliosis or deformity SKIN: No rashes CENTRAL NERVOUS SYSTEM: No focal deficits, tone is normal in all 4 extremities. PSYCHIATRIC: Alert and oriented -3. Appropriate affect. Intact judgment and insight. - Labs CBC & Chem 7: 09/27/21 06:12 09/27/21 06:12 Labs: Abnormal Lab Results - Last 24 Hours (Table) 09/26/21 09/26/21 09/27/21 Range/Units 16:30 21:00 06:12 RBC 2.51 L (4.10-5.20) X 10*6/uL Hgb 7.2 L (12.0-15.0) g/dL Hct 24.5 L (37.2-46.3) % MCV 97.6 H (80.0-97.0) fL MCHC 29.4 L (32.0-37.0) g/dL RDW 15.8 H (11.5-14.5) % Eosinophils # 0.38 H (0.04-0.35) X 10*3/uL BUN/Creatinine Ratio (12.00-20.00) Ratio Glucose (70-110) mg/dL POC Glucose (mg/dL) 306 H 172 H (70-110) mg/dL Calcium (8.7-10.3) mg/dL Total Bilirubin (0.30-1.20) mg/dL Total Protein (6.2-8.2) g/dL Albumin (3.8-4.9) g/dL Albumin/Globulin Ratio (1.60-3.17) g/dL 09/27/21 09/27/21 09/27/21 Range/Units 06:12 07:06 11:43 RBC (4.10-5.20) X 10*6/uL Hgb (12.0-15.0) g/dL Hct (37.2-46.3) % MCV (80.0-97.0) fL MCHC (32.0-37.0) g/dL RDW (11.5-14.5) % Eosinophils # (0.04-0.35) X 10*3/uL BUN/Creatinine Ratio 28.22 H (12.00-20.00) Ratio Glucose 147 H (70-110) mg/dL POC Glucose (mg/dL) 160 H 234 H (70-110) mg/dL Calcium 8.4 L (8.7-10.3) mg/dL Total Bilirubin <0.15 L (0.30-1.20) mg/dL Total Protein 4.8 L (6.2-8.2) g/dL Albumin 2.4 L (3.8-4.9) g/dL Albumin/Globulin Ratio 1.00 L (1.60-3.17) g/dL Microbiology - Last 24 Hours (Table) 09/24/21 11:00 Gram Stain - Preliminary Pleural Fluid Body Fluid Culture - Preliminary 09/24/21 11:00 Anaerobic Culture - Preliminary Pleural Fluid Assessment and Plan Plan: Assessment: Left sided pleural effusion, under investigation, postthoracentesis, the fluid could be transudate, awaiting final cytology. Low protein. LDH is mildly elevated. Awaiting pleural fluid cytology. Meanwhile, the patient continues to diurese with IV Lasix and the patient remains in a negative fluid balance Large pericardial effusion with thrombus, of unknown etiology. Echocardiogram showed no evidence of cardiac tamponade. CT surgery has been consulted. Status post left-sided thoracentesis on 09/24/2021 with removal of 1.25 L of 10 dark pleural fluid which was sent for analysis, cytology and cultures. Acute on chronic dyspnea, under investigation , much improved and the patient is responding to diuresis Leg edema, chronic with episodic cellulitis involving lower extremity is bilaterally, still on diuretics and the patient is receiving Lasix 40 IV every 12 hours. COPD, which appears to be stable Acute kidney injury, secondary to ATN/hypotension recovered Thrombocytopenia, recovered History of diabetes mellitus with diabetic neuropathy. History of sleep apnea syndrome, currently not on CPAP. History of gastroesophageal reflux disease. History of hypertension. History of hyperlipidemia. History of mild pancreatitis. History of arthritis. Prior history of Chinedu-en-Y bariatric surgery for obesity. Mild ascending aortic aneurysm Plan: Patient tolerated left-sided thoracentesis well, and awaiting fluid cytology . Note that a total of 1.25 L of thin dark fluid which was nonbloody removed and sent for analysis and cytology and cultures Continued IV Lasix 24 hours Patient is responding Lasix to diuretics and the patient remains a negative fluid balance Patient is currently on room air oxygen We'll continue to follow patient's clinical course The patient is much improved. Blood work was noted. Antibiotics per infectious disease
--- NOTE | 2021-09-27 16:13 | US ---
EXAMINATION TYPE: US venous doppler duplex LE RT DATE OF EXAM: 09/27/2021 4:01 PM COMPARISON: NONE CLINICAL HISTORY: swelling. Red patch of skin on colbert, no h/o dvt SIDE PERFORMED: Right TECHNIQUE: The lower extremity deep venous system is examined utilizing real time linear array sonog quiana with graded compression, doppler sonography and color-flow sonography. VESSELS IMAGED: Common Femoral Vein Deep Femoral Vein Greater Saphenous Vein * Femoral Vein Popliteal Vein Small Saphenous Vein * Proximal Calf Veins (* superficial vessels) Grayscale, color doppler, spectral doppler imaging performed of the deep veins of the right lower ext remity. There is normal flow, compressibility, vascular waveforms. IMPRESSION: No evidence for deep venous thrombosis of the right lower extremity.
[2021-09-27 17:00] LABS: Glucose,Whole Blood 196 mg/dL (70-110)
--- NOTE | 2021-09-27 17:01 | PN ---
PROGRESS NOTE Samantha is a 66-year-old lady with complex and multiple medical problems, including renal failure on hemodialysis, atrial flutter, hypertension, dyslipidemia, COPD, pleural and pericardial effusion who appears better this morning. She is more alert awake and more able to answer questions better. Her fever had improved. EXAM: Heart rate is 90 to 100 beats per minute. Blood pressure is 110/66, respirations 18. Chest exam reveals diminished air entry at the bases. Heart exam reveals first and second heart sounds. No gallop. Examination of extremities reveals 1+ edema. Peripheral pulses are felt. LABS: Labs show a hemoglobin is 7.2, platelet count is 268, potassium is 3.8, creatinine is 0.9. ASSESSMENT AND PLAN: 1. History of atrial flutter. 2. Chronic renal failure. 3. Pleural effusion status post thoracentesis. 4. Pericardial effusion. PLAN: Patient we should resume Eliquis. We will find out from primary. MMODL / IJN: [id number] /
--- NOTE | 2021-09-27 17:35 | P.PN ---
Subjective Progress Note Date: 09/27/21 Principal diagnosis: Fever and possible pneumonia Patient is a 66-year-old patient female with recurrent admissions to the hospital and there was question of TTP and patient presented back to the hospital with increasing shortness of breath, and there is a question of pneumonia patient did have a fever and CT of the chest suggestive of pericardial effusion patient did have echocardiogram with evidence of large pericardial effusion and thrombus but no temponade. Patient is status post left-sided thoracocentesis completed on 09/24/2021 per pulmonary On today's evaluation that is 09/27/2021, the patient did have low-grade fever 100.2F this afternoon, the patient is breathing comfortably on room air, the patient denies chest pain, the patient did have occasional cough and no sputum production denies abdominal pain no diarrhea Objective - Vital Signs Vital signs: Vital Signs Temp 100.2 F H 09/27/21 14:00 Pulse 96 09/27/21 14:00 Resp 18 09/27/21 14:00 BP 120/61 09/27/21 14:00 Pulse Ox 97 09/27/21 14:00 FiO2 21 09/26/21 15:06 Intake & Output 09/26/21 09/27/21 09/27/21 18:59 06:59 18:59 Weight 90.7 kg Other: Voiding Method External Catheter - Exam GENERAL DESCRIPTION: An elderly female up in the chair RESPIRATORY SYSTEM: Unlabored breathing , decreased breath sounds at bases HEART: S1 S2 regular rate and rhythm , ABDOMEN: Soft , no tenderness EXTREMITIES: No edema feet - Labs CBC & Chem 7: 09/27/21 06:12 09/27/21 06:12 Labs: Abnormal Lab Results - Last 24 Hours (Table) 09/26/21 09/27/21 09/27/21 Range/Units 21:00 06:12 06:12 RBC 2.51 L (4.10-5.20) X 10*6/uL Hgb 7.2 L (12.0-15.0) g/dL Hct 24.5 L (37.2-46.3) % MCV 97.6 H (80.0-97.0) fL MCHC 29.4 L (32.0-37.0) g/dL RDW 15.8 H (11.5-14.5) % Eosinophils # 0.38 H (0.04-0.35) X 10*3/uL BUN/Creatinine Ratio 28.22 H (12.00-20.00) Ratio Glucose 147 H (70-110) mg/dL POC Glucose (mg/dL) 172 H (70-110) mg/dL Calcium 8.4 L (8.7-10.3) mg/dL Total Bilirubin <0.15 L (0.30-1.20) mg/dL Total Protein 4.8 L (6.2-8.2) g/dL Albumin 2.4 L (3.8-4.9) g/dL Albumin/Globulin Ratio 1.00 L (1.60-3.17) g/dL 09/27/21 09/27/21 09/27/21 Range/Units 07:06 11:43 16:49 RBC (4.10-5.20) X 10*6/uL Hgb (12.0-15.0) g/dL Hct (37.2-46.3) % MCV (80.0-97.0) fL MCHC (32.0-37.0) g/dL RDW (11.5-14.5) % Eosinophils # (0.04-0.35) X 10*3/uL BUN/Creatinine Ratio (12.00-20.00) Ratio Glucose (70-110) mg/dL POC Glucose (mg/dL) 160 H 234 H 196 H (70-110) mg/dL Calcium (8.7-10.3) mg/dL Total Bilirubin (0.30-1.20) mg/dL Total Protein (6.2-8.2) g/dL Albumin (3.8-4.9) g/dL Albumin/Globulin Ratio (1.60-3.17) g/dL Microbiology - Last 24 Hours (Table) 09/24/21 11:00 Gram Stain - Preliminary Pleural Fluid Body Fluid Culture - Preliminary 09/24/21 11:00 Anaerobic Culture - Preliminary Pleural Fluid Assessment and Plan (1) Fever Current Visit: Yes Status: Acute Code(s): R50.9 - FEVER, UNSPECIFIED SNOMED Code(s): 616206377 Plan: 1patient presented to hospital with increasing shortness of breath and this patient has [id number] x-rays have been suspicious for left-sided effusion and possible atelectasis underlying pneumonia not entirely excluded patient subsequently did have a CT angiogram of the chest did not mention any consultation however the patient did have large effusion confirmed on echocardiogram and mention the clot inside the effusion could be responsible for her symptomatology any fever. CT surgery is following the patient 2patient did have evidence of left-sided effusion and is status post thoracocentesis cultures are so far negative 3-patient did have a low-grade fever we will recheck her inflammatory markers and chest x-ray and continue with the cefepime Time with Patient: Less than 30
[2021-09-27] MEDS: HYDROcodone/APAP 5-325MG 1 EACH TAB PO PRN (20:01)
[2021-09-27 20:07] LABS: Glucose,Whole Blood 197 mg/dL (70-110)
[2021-09-27] MEDS: APIXABAN 5 MG TAB PO SCH (22:30)
[2021-09-27] MEDS: traZODone HCL 100 MG TAB PO SCH (22:30)
--- NOTE | 2021-09-28 00:20 | P.PN ---
Subjective Progress Note Date: 09/26/21 Patient is a 66-year-old female with a known history of hypertension, hyperlipidemia, diabetes type 2, obstructive sleep apnea not on CPAP at home, bilateral diabetic peripheral neuropathy, anxiety and depression and prior history of smoking presents to ER with complaints of shortness of breath. Patient does have cough without any sputum production. Was also anxious on admission. No fever no chills. Patient was recently discharged from the hospital on 08/27/2021 and was transferred to [facility] for possible TTP and plasmapheresis. Was admitted to the hospital due to acute kidney injury and altered mental status and found to have schistocytes in the peripheral smear and was seen by hem atology. Due to severe thrombocytopenia patient was transferred to [facility] for plasmapheresis and also worsening renal function. Patient was discharged to [facility] for physical therapy. Patient was discharged home about a week ago. Last night patient developed shortness of breath and could not breathe. Patient's fianc brought her to the hospital. On admission blood pressure 164/77 pulse is 69 respiration 24 and pulse ox 94% on room air. Laboratory showed WBC 5.2 hemoglobin 8.4 and platelets 147 Sodium 139 potassium 3.7 chloride 108 bicarb is 23 BUN 23 and creatinine 0.84 and blood sugar is 220 Liver enzymes are not elevated proBNP 993 TSH 3.38 and coronavirus PCR not detected. Chest x-ray showed there is left pleural effusion and left lower lobe infiltrate which are new compared to old exam. No heart failure seen. Cardiomegaly. EKG showed sinus tachycardia and low QRS voltage. Patient was transferred to [facility] due to concern for possible TTP. Patient was evaluated by oncology and he was placed on steroids. Further work- up was performed she apparently did not require plasmapheresis. Patient developed acute kidney injury and requiring temporary hemodialysis and her creatinine peaked at 4.8. She was last hemodialyzed on 09/07/2021. He with creatinine level was normalized. Patient was also requiring intubation and mechanical ventilator due to altered mental status and encephalopathy and also treated for hyponatremia. Patient was successfully extubated. While here she was at [facility] she developed new onset atrial fibrillation with RVR and was started on Cardizem patient was successfully cardioverted. Patient is m aintaining sinus rhythm. Patient was also started on Eliquis and also treated for NSTEMI. 2D echocardiogram during hospitalization showed left ventricular ejection fraction 60 to 65%. Steroids were later stopped by hematology. She has to be on Eliquis for 30 days and then anticoagulation needs to be discontinued. Patient was eventually transferred to inpatient rehab at [facility]. 09/20/2021 Patient is currently resting in the bed. Awake alert oriented x3. Breathing status is much better. Continue on duo nebs. No complaints of chest pain. No nausea vomiting abdominal pain or diarrhea. Patient is being continued on antibiotics for possible pneumonia Overnight T-max was 100.4. Currently afebrile. Laboratory showed WBC 3.74 hemoglobin 7.1 platelets 123 Sodium 141 potassium 4.0 chloride 110 bicarb is 20.4 BUN 20.5 and creatinine 0.8 and blood sugar is 1 4010 calcium 8.0 blood sugar is better controlled. Patient is tolerating oral diet. Chest x-ray showed persistent left basilar infiltrate and/or/effusion. Right lung is clear. 09/21/2021 Patient is seen and evaluated in follow-up this morning currently sitting up at the side of the bed extremely weak requiring 2 person assist to get up although ambulating with a walker and standby assistance. Patient continues to have some shortness of breath with exertion although maintained on 1 liter of 02 currentl y. Patient appears working to breathe. Patient hemoglobin was low this am and sent to [facility] with some hemolysis and a stat cbc has been reordered. Pulmonary and cardiology consulted. Chest xray ordered. Patient did receive a dose of IV lasix today. Labs pending repeat. Patient also continues with fevers and is maintained on IV abx and will consult infectious disease. 09/22/2021 Patient is seen today and was maintaining oxygen saturation of 100% on 4L and weaning as tolerated. Patient is noted to remove her oxygen often while sitting up in the chair. Patient is less dyspneic during conversation. Patient is currently afebrile and is maintained on IV antibiotic therapy in the form of cefepime with ID following. Pleural effusions noted and patient is diuresing with IV lasix. Kidney functions stable. Patient for possible thoracentesis with pulmonary if respiratory status declines. Patient continues to be anxious with episodes of shortness of breath. Encouraged incentive spirometer use and continued cough and deep breathing. Patient denies chest pain or palpitations. Cardiology following as well. 09/23/2021 Patient is seen this morning sitting up in the chair on 2 L via NC and denies worsening shortness of breath. Pulmonary following and CT surgery also consulted for concern of the pericardial effusion noted on echo with no plans for intervention at this time. cardiology following as well as hematology. Chest ultrasound ordered as patient continues with pleural effusion on the left and possible thoracentesis within the next 24 hours. continued on IV lasix for now and will repeat am labs. Patient is afebrile and denies chest pain or palpitations. Recommend to hold eliquis for now for thoracentesis. Patient also reports not having a bowel movement since admission and will add Senokot twice a day 09/24/2021 Patient is seen in follow-up this morning scheduled to undergo thoracentesis on the left status post chest ultrasound with pulmonary. Patient is currently being prepped for the thoracentesis and fluid culture and analysis will be sent. Patient's Eliquis has been on hold and will discuss with cardiology about resuming after thoracentesis. Patient is continued on IV cefepime and blood cultures have been negative. Cardiology following as well and recommend repeat echo in the morning as the echo showed an EF of 55-60% with a large circumferential pericardial effusion measuring approximately 2.5 cm with thrombus formation in the pericardial effusion with no diastolic collapse to suggest findings of cardiac tamponade. Patient is afebrile and denies worsening shortness of breath or any chest pain. Patient tolerating diet and did have a bowel movement last night. 09/25/2021 Patient is seen today and repeat echo with no evidence of tamponade. Patient is status post thoracentesis and reports to feeling shortness of breath improved. Patient is currently on room air occasionally using 2-3 liters. Patient is afebrile and is continued on IV cefepime. Awaiting cultures from the thoracentesis to determine if requiring discharge antibiotics. Encouraged increased activity as tolerated. Patient is weak. 09/26/2020 Patient is currently lying in bed. Awake alert but anxious and also moaning at times. Seems to be confused mildly. Otherwise patient is status post left thoracentesis with 1.7 L fluid removal. Likely transudative. Cultures are pending. Patient otherwise remains on IV Lasix 40 mg every 12 hours. Also on antibiotics in the form of IV cefepime. Encouraged with incentive spirometry. Laboratory pressure WBC 5.4 hemoglobin 8.0 and platelets 264 Sodium 137 potassium 3.9 chloride 106 bicarb is 28 BUN 26 and creatinine 0.78 Pulmonary and ID is on board. Review of systems: Constitutional: no reports of fatigue, no reports of fever, or chills Cardiovascular: No reports of chest pain or palpitations Respiratory: no reports of shortness of breath and reports feeling improved, no reports of cough GI: No reports of nausea, vomiting, or diarrhea : No reports of dysuria or retention Neurovascular: reports of generalized weakness All medications have been reviewed Objective - Vital Signs Vital signs: Vital Signs Temp 98.1 F 09/26/21 14:00 Pulse 91 09/26/21 19:23 Resp 18 09/26/21 19:23 BP 107/65 09/26/21 14:00 Pulse Ox 94 L 09/26/21 15:06 FiO2 21 09/26/21 15:06 Intake & Output 09/26/21 09/26/21 09/27/21 06:59 18:59 06:59 Output Total 500 Balance -500 Weight 91.626 kg Output: Urine 500 - Exam Physical exam: Patient is sitting up in the chair, no acute distress, awake alert and oriented.. HEENT: Normocephalic. Neck is supple. Pupils reactive. Nostrils clear. Oral cavity is moist. Neck reveals no JVD, carotid bruits, or thyromegaly. CHEST EXAMINATION: Trachea is central. Symmetrical expansion. diminished sounds bilaterally and minimal basilar crackles. No wheezing. CARDIAC: Normal S1, S2 with no gallops. No murmurs ABDOMEN: Soft. Bowel sounds present. Nontender. No organomegaly. No abdominal bruits. Extremities: Bilateral trace edema. No clubbing or cyanosis Neurologically awake, alert, oriented x3 with well-coordinated movements. diffu se weakness noted Skin: No rash or skin lesions. Psychiatric: Cooperative. Non-suicidal, less anxious. Musculoskeletal: No joint swelling or deformity. Normal range of motion. - Labs CBC & Chem 7: 09/27/21 06:12 09/27/21 06:12 Labs: Abnormal Lab Results - Last 24 Hours (Table) 09/26/21 09/26/21 09/26/21 Range/Units 06:42 06:42 07: RBC 2.55 L (3.80-5.40) m/uL Hgb 8.0 L (11.4-16.0) gm/dL Hct 25.0 L (34.0-46.0) % RDW 16.0 H (11.5-15.5) % Lymphocytes # 0.7 L (1.0-4.8) k/uL BUN 26 H (7-17) mg/dL Glucose 142 H (74-99) mg/dL POC Glucose (mg/dL) 154 H (70-110) mg/dL Calcium 8.3 L (8.4-10.2) mg/dL 09/26/21 09/26/21 09/26/21 Range/Units 11:35 16:30 21:00 RBC (3.80-5.40) m/uL Hgb (11.4-16.0) gm/dL Hct (34.0-46.0) % RDW (11.5-15.5) % Lymphocytes # (1.0-4.8) k/uL BUN (7-17) mg/dL Glucose (74-99) mg/dL POC Glucose (mg/dL) 269 H 306 H 172 H (70-110) mg/dL Calcium (8.4-10.2) mg/dL Microbiology - Last 24 Hours (Table) 09/24/21 11:00 Gram Stain - Preliminary Pleural Fluid Body Fluid Culture - Preliminary 09/24/21 11:00 Anaerobic Culture - Preliminary Pleural Fluid 09/19/21 21:06 Blood Culture - Final Blood No Growth after 144 hours 09/24/21 11:00 Acid Fast Bacilli Smear - Final Pleural Fluid Acid Fast Bacilli Culture - Preliminary Assessment and Plan Assessment: Assessment: Left lower lobe infiltrate/pneumonia. Possible healthcare associated. Recent admission with [facility] requiring HD, A fib, NSTEMI , possible thrombocytopenia/TTP and was transferred to [facility] on 08/27/2021 Acute COPD exacerbation. large left pleural effusions status post thoracentesis with approximately 1.5 L removed and sent for culture and analysis Large circumferential pericardial effusion measuring approximately 2.5 cm with thrombus formation in the pericardial effusion with no diastolic collapse to suggest findings of cardiac tamponade Normocytic anemia with thrombocytopenia Hypertension Hyperlipidemia GERD Diabetes type 2 [id number], uncontrolled with hypoglycemia Diabetic peripheral neuropathy bilateral Obstructive sleep apnea not using any CPAP at home currently Borderline aneurysm of the ascending aorta Anxiety/depression Prior history of smoking DVT prophylaxis GI prophylaxis Full code Plan: Patient is maintained on antibiotics in the form of cefepime for pneumonia and pulmonary and ID following. Cardiology and CT surgery following with no plans for surgical intervention at this time and repeat echo shows pericardial effusion with thrombus with no sign of tamponade and ef is 55-60% Patient is status post thoracentesis on the left at approximately 1.2 L removed and sent for analysis and culture, awaiting culture per ID to determine if continued abx are required. Recommend to continue with IV diuresis and follow up labs and in the a.m. recommend holding anticoagulation for now and will discuss with cardio about resuming on discharge PT/OT to evaluate the patient Recommend to continue using incentive spirometer at least 10 times every hour while awake. Due to multiple complex medical issues, prognosis is guarded Time with Patient: Greater than 30
--- NOTE | 2021-09-28 00:29 | P.PN ---
Subjective Progress Note Date: 09/27/21 Patient is a 66-year-old female with a known history of hypertension, hyperlipidemia, diabetes type 2, obstructive sleep apnea not on CPAP at home, bilateral diabetic peripheral neuropathy, anxiety and depression and prior history of smoking presents to ER with complaints of shortness of breath. Patient does have cough without any sputum production. Was also anxious on admission. No fever no chills. Patient was recently discharged from the hospital on 08/27/2021 and was transferred to [facility] for possible TTP and plasmapheresis. Was admitted to the hospital due to acute kidney injury and altered mental status and found to have schistocytes in the peripheral smear and was seen by hem atology. Due to severe thrombocytopenia patient was transferred to [facility] for plasmapheresis and also worsening renal function. Patient was discharged to [facility] for physical therapy. Patient was discharged home about a week ago. Last night patient developed shortness of breath and could not breathe. Patient's fianc brought her to the hospital. On admission blood pressure 164/77 pulse is 69 respiration 24 and pulse ox 94% on room air. Laboratory showed WBC 5.2 hemoglobin 8.4 and platelets 147 Sodium 139 potassium 3.7 chloride 108 bicarb is 23 BUN 23 and creatinine 0.84 and blood sugar is 220 Liver enzymes are not elevated proBNP 993 TSH 3.38 and coronavirus PCR not detected. Chest x-ray showed there is left pleural effusion and left lower lobe infiltrate which are new compared to old exam. No heart failure seen. Cardiomegaly. EKG showed sinus tachycardia and low QRS voltage. Patient was transferred to [facility] due to concern for possible TTP. Patient was evaluated by oncology and he was placed on steroids. Further work- up was performed she apparently did not require plasmapheresis. Patient developed acute kidney injury and requiring temporary hemodialysis and her creatinine peaked at 4.8. She was last hemodialyzed on 09/07/2021. He with creatinine level was normalized. Patient was also requiring intubation and mechanical ventilator due to altered mental status and encephalopathy and also treated for hyponatremia. Patient was successfully extubated. While here she was at [facility] she developed new onset atrial fibrillation with RVR and was started on Cardizem patient was successfully cardioverted. Patient is m aintaining sinus rhythm. Patient was also started on Eliquis and also treated for NSTEMI. 2D echocardiogram during hospitalization showed left ventricular ejection fraction 60 to 65%. Steroids were later stopped by hematology. She has to be on Eliquis for 30 days and then anticoagulation needs to be discontinued. Patient was eventually transferred to inpatient rehab at [facility]. 09/20/2021 Patient is currently resting in the bed. Awake alert oriented x3. Breathing status is much better. Continue on duo nebs. No complaints of chest pain. No nausea vomiting abdominal pain or diarrhea. Patient is being continued on antibiotics for possible pneumonia Overnight T-max was 100.4. Currently afebrile. Laboratory showed WBC 3.74 hemoglobin 7.1 platelets 123 Sodium 141 potassium 4.0 chloride 110 bicarb is 20.4 BUN 20.5 and creatinine 0.8 and blood sugar is 1 4010 calcium 8.0 blood sugar is better controlled. Patient is tolerating oral diet. Chest x-ray showed persistent left basilar infiltrate and/or/effusion. Right lung is clear. 09/21/2021 Patient is seen and evaluated in follow-up this morning currently sitting up at the side of the bed extremely weak requiring 2 person assist to get up although ambulating with a walker and standby assistance. Patient continues to have some shortness of breath with exertion although maintained on 1 liter of 02 currentl y. Patient appears working to breathe. Patient hemoglobin was low this am and sent to [facility] with some hemolysis and a stat cbc has been reordered. Pulmonary and cardiology consulted. Chest xray ordered. Patient did receive a dose of IV lasix today. Labs pending repeat. Patient also continues with fevers and is maintained on IV abx and will consult infectious disease. 09/22/2021 Patient is seen today and was maintaining oxygen saturation of 100% on 4L and weaning as tolerated. Patient is noted to remove her oxygen often while sitting up in the chair. Patient is less dyspneic during conversation. Patient is currently afebrile and is maintained on IV antibiotic therapy in the form of cefepime with ID following. Pleural effusions noted and patient is diuresing with IV lasix. Kidney functions stable. Patient for possible thoracentesis with pulmonary if respiratory status declines. Patient continues to be anxious with episodes of shortness of breath. Encouraged incentive spirometer use and continued cough and deep breathing. Patient denies chest pain or palpitations. Cardiology following as well. 09/23/2021 Patient is seen this morning sitting up in the chair on 2 L via NC and denies worsening shortness of breath. Pulmonary following and CT surgery also consulted for concern of the pericardial effusion noted on echo with no plans for intervention at this time. cardiology following as well as hematology. Chest ultrasound ordered as patient continues with pleural effusion on the left and possible thoracentesis within the next 24 hours. continued on IV lasix for now and will repeat am labs. Patient is afebrile and denies chest pain or palpitations. Recommend to hold eliquis for now for thoracentesis. Patient also reports not having a bowel movement since admission and will add Senokot twice a day 09/24/2021 Patient is seen in follow-up this morning scheduled to undergo thoracentesis on the left status post chest ultrasound with pulmonary. Patient is currently being prepped for the thoracentesis and fluid culture and analysis will be sent. Patient's Eliquis has been on hold and will discuss with cardiology about resuming after thoracentesis. Patient is continued on IV cefepime and blood cultures have been negative. Cardiology following as well and recommend repeat echo in the morning as the echo showed an EF of 55-60% with a large circumferential pericardial effusion measuring approximately 2.5 cm with thrombus formation in the pericardial effusion with no diastolic collapse to suggest findings of cardiac tamponade. Patient is afebrile and denies worsening shortness of breath or any chest pain. Patient tolerating diet and did have a bowel movement last night. 09/25/2021 Patient is seen today and repeat echo with no evidence of tamponade. Patient is status post thoracentesis and reports to feeling shortness of breath improved. Patient is currently on room air occasionally using 2-3 liters. Patient is afebrile and is continued on IV cefepime. Awaiting cultures from the thoracentesis to determine if requiring discharge antibiotics. Encouraged increased activity as tolerated. Patient is weak. 09/26/2020 Patient is currently lying in bed. Awake alert but anxious and also moaning at times. Seems to be confused mildly. Otherwise patient is status post left thoracentesis with 1.7 L fluid removal. Likely transudative. Cultures are pending. Patient otherwise remains on IV Lasix 40 mg every 12 hours. Also on antibiotics in the form of IV cefepime. Encouraged with incentive spirometry. Laboratory pressure WBC 5.4 hemoglobin 8.0 and platelets 264 Sodium 137 potassium 3.9 chloride 106 bicarb is 28 BUN 26 and creatinine 0.78 Pulmonary and ID is on board. 09/27/2021 Patient is more awake and oriented today. Breathing status is better. On room air now. No complaints of chest pain or worsening shortness breath. No fever no chills. No cough or sputum production. Patient is being current on IV Lasix 40 mg every 12 and is also on duo nebs and increase with incentive spirometry. Patient is also on antibiotics Rocephin. Eliquis was restarted today. Patient is complaining of leg swelling right lower extremity seems to be more than left. Venous duplex scan was ordered showed no evidence of DVT. Review of systems: Constitutional: no reports of fatigue, no reports of fever, or chills Cardiovascular: No reports of chest pain or palpitations Respiratory: no reports of shortness of breath and reports feeling improved, no reports of cough GI: No reports of nausea, vomiting, or diarrhea : No reports of dysuria or retention Neurovascular: reports of generalized weakness All medications have been reviewed Objective - Vital Signs Vital signs: Vital Signs Temp 98.2 F 09/27/21 20:00 Pulse 82 09/27/21 20:24 Resp 16 09/27/21 20:00 BP 116/71 09/27/21 20:00 Pulse Ox 97 09/27/21 20:00 FiO2 21 09/26/21 15:06 Intake & Output 09/27/21 09/27/21 09/28/21 06:59 18:59 06:59 Output Total 400 Balance -400 Weight 90.7 kg Output: Urine 400 Other: Voiding Method External Catheter External Catheter - Exam Physical exam: Patient is sitting up in the chair, no acute distress, awake alert and oriented.. HEENT: Normocephalic. Neck is supple. Pupils reactive. Nostrils clear. Oral cavity is moist. Neck reveals no JVD, carotid bruits, or thyromegaly. CHEST EXAMINATION: Trachea is central. Symmetrical expansion. minimal basilar crackles. No wheezing. CARDIAC: Normal S1, S2 with no gallops. No murmurs ABDOMEN: Soft. Bowel sounds present. Nontender. No organomegaly. No abdominal bruits. Extremities: Bilateral trace edema. No clubbing or cyanosis Neurologically awake, alert, oriented x3 with well-coordinated movements. diffuse weakness noted Skin: No rash or skin lesions. Psychiatric: Cooperative. Non-suicidal, less anxious. Musculoskeletal: No joint swelling or deformity. Normal range of motion. - Labs CBC & Chem 7: 09/27/21 06:12 09/27/21 06:12 Labs: Abnormal Lab Results - Last 24 Hours (Table) 09/27/21 09/27/21 09/27/21 Range/Units 06:12 06:12 07:06 RBC 2.51 L (4.10-5.20) X 10*6/uL Hgb 7.2 L (12.0-15.0) g/dL Hct 24.5 L (37.2-46.3) % MCV 97.6 H (80.0-97.0) fL MCHC 29.4 L (32.0-37.0) g/dL RDW 15.8 H (11.5-14.5) % Eosinophils # 0.38 H (0.04-0.35) X 10*3/uL BUN/Creatinine Ratio 28.22 H (12.00-20.00) Ratio Glucose 147 H (70-110) mg/dL POC Glucose (mg/dL) 160 H (70-110) mg/dL Calcium 8.4 L (8.7-10.3) mg/dL Total Bilirubin <0.15 L (0.30-1.20) mg/dL Total Protein 4.8 L (6.2-8.2) g/dL Albumin 2.4 L (3.8-4.9) g/dL Albumin/Globulin Ratio 1.00 L (1.60-3.17) g/dL 09/27/21 09/27/21 09/27/21 Range/Units 11:43 16:49 20:05 RBC (4.10-5.20) X 10*6/uL Hgb (12.0-15.0) g/dL Hct (37.2-46.3) % MCV (80.0-97.0) fL MCHC (32.0-37.0) g/dL RDW (11.5-14.5) % Eosinophils # (0.04-0.35) X 10*3/uL BUN/Creatinine Ratio (12.00-20.00) Ratio Glucose (70-110) mg/dL POC Glucose (mg/dL) 234 H 196 H 197 H (70-110) mg/dL Calcium (8.7-10.3) mg/dL Total Bilirubin (0.30-1.20) mg/dL Total Protein (6.2-8.2) g/dL Albumin (3.8-4.9) g/dL Albumin/Globulin Ratio (1.60-3.17) g/dL Microbiology - Last 24 Hours (Table) 09/24/21 11:00 Gram Stain - Preliminary Pleural Fluid Body Fluid Culture - Preliminary 09/24/21 11:00 Anaerobic Culture - Preliminary Pleural Fluid Assessment and Plan Assessment: Assessment: large left pleural effusions status post thoracentesis with approximately 1.7 L removed and sent for culture and analysis Large circumferential pericardial effusion measuring approximately 2.5 cm with thrombus formation in the pericardial effusion with no diastolic collapse to suggest findings of cardiac tamponade Left lower lobe infiltrate/pneumonia. Possible healthcare associated. Recent admission with [facility] requiring HD, A fib, NSTEMI , possible thrombocytopenia/TTP and was transferred to [facility] on 08/27/2021 Acute COPD exacerbation. Normocytic anemia with thrombocytopenia Hypertension Hyperlipidemia GERD Diabetes type 2 [id number], uncontrolled with hypoglycemia Diabetic peripheral neuropathy bilateral Obstructive sleep apnea not using any CPAP at home currently Borderline aneurysm of the ascending aorta Anxiety/depression Prior history of smoking DVT prophylaxis GI prophylaxis Full code Plan: Patient is maintained on antibiotics in the form of cefepime for pneumonia and pulmonary and ID following. Cardiology and CT surgery following with no plans for surgical intervention at this time and repeat echo shows pericardial effusi on with thrombus with no sign of tamponade and ef is 55-60% Patient is status post thoracentesis on the left at approximately 1.7 L removed and sent for analysis and culture, awaiting culture per ID to determine if continued abx are required. Recommend to continue with IV diuresis and follow up labs and in the a.m. recommend holding anticoagulation for now and will discuss with cardio about resuming on discharge PT/OT to evaluate the patient Recommend to continue using incentive spirometer at least 10 times every hour while awake. Due to multiple complex medical issues, prognosis is guarded Time with Patient: Greater than 30
[2021-09-28] MEDS: CEFEPIME 2 GM in SODIUM CHLORIDE 0.9% 100 ML IVPB SCH ×3 (00:58→16:54)
[2021-09-28] MEDS: SODIUM CHLORIDE 0.9% 1,000 ML IV SCH (05:25)
[2021-09-28 07:10] LABS: Glucose,Whole Blood 130 mg/dL (70-110)
[2021-09-28] MEDS: INSULIN ASPART (NovoLOG) 100 UNIT/ML VIAL SQ SCH ×4 (07:12→20:55)
--- NOTE | 2021-09-28 07:38 | XR ---
EXAMINATION TYPE: XR chest 1V portable DATE OF EXAM: 09/28/2021 COMPARISON: 09/24/2021 INDICATION: Pneumonia TECHNIQUE: Frontal and lateral views of the chest are obtained. FINDINGS: The heart size is mildly prominent. The pulmonary vasculature is normal. Left lower lobe infiltrate is present. Correlate for atelectasis or pneumonia. Follow-up is recommend ed. Minimal infiltrate at the right costophrenic angle may be present. IMPRESSION: 1. Left lower lobe infiltrate. Correlate for atelectasis or pneumonia. Small underlying pleural effus ion may be present. Follow-up is recommended.
[2021-09-28] MEDS: CYANOCOBALAMIN 500 MCG TAB PO SCH (08:27)
[2021-09-28] MEDS: PANTOPRAZOLE 40 MG TABLET PO SCH (08:27)
[2021-09-28] MEDS: FUROSEMIDE 10 MG/ML 2 ML VIAL IV SCH (08:27)
[2021-09-28] MEDS: APIXABAN 5 MG TAB PO SCH ×2 (08:27→20:51)
[2021-09-28 09:13] LABS: Basophils # (A) 0.04 X 10*3/uL (0.00-0.10); Basophils % (A) 0.7 %; Eosinophils # (A) 0.33 X 10*3/uL (0.04-0.35); Eosinophils % (A) 5.8 %; HCT 25.2 % (37.2-46.3); HGB 7.7 g/dL (12.0-15.0); Immature Grans, Automated 0.4 %; Lymphocytes # (A) 1.01 X 10*3/uL (0.90-5.00); Lymphocytes % (A) 17.8 %; MCH 29.7 pg (27.0-32.0); MCHC 30.6 g/dL (32.0-37.0); MCV 97.3 fL (80.0-97.0); Mean Platelet Volume 10.4 fL (9.5-12.2); Monocytes # (A) 0.67 X 10*3/uL (0.20-1.00); Monocytes % (A) 11.8 %; NRBC Per 100 WBC 0 /100 WBCS (0.0-0.0); Neutrophils # (A) 3.59 X 10*3/uL (1.80-7.70); Neutrophils % (A) 63.5 %; Platelet Count 258 X 10*3/uL (140-440); RBC 2.59 X 10*6/uL (4.10-5.20); RDW 15.7 % (11.5-14.5); WBC 5.66 X 10*3/uL (4.50-10.00)
[2021-09-28 09:40] LABS: African American GFR (CKD) 76.7 (60.0-200.0); Anion Gap 10.6 mmol/L (10.00-18.00); BUN/Creat Ratio 27.67 Ratio (12.00-20.00); Blood Urea Nitrogen 24.9 mg/dL (9.0-27.0); C Reactive Protein 2.6 mg/dL (0.00-0.80); Calcium 8.4 mg/dL (8.7-10.3); Carbon Dioxide 27.4 mmol/L (20.0-27.5); Non-African American GFR(CKD) 66.2 (60.0-200.0); Potassium 3.6 mmol/L (3.5-5.5)
[2021-09-28 09:58] LABS: Erythrocyte Sedimentation Rate 50 mm/Hr (0-30)
--- NOTE | 2021-09-28 10:41 | P.PN ---
Subjective Progress Note Date: 09/28/21 HISTORY OF PRESENT ILLNESS: Patient examined this morning at the bedside. Patient denies chest pain or pressure. She states her shortness of breath has significantly improved. She denies any dizziness or light headedness. Denies any palpitations. Vital signs are stable. She is status post left-sided thoracentesis. She remains on IV lasix. PHYSICAL EXAM: VITAL SIGNS: Reviewed. GENERAL: Well-developed in no acute distress. NECK: Supple. No JVD or thyromegaly LUNGS: Respirations even and unlabored. Lungs diminished to auscultation bilaterally. HEART: Regular rate and rhythm. S1 and S2 heard. EXTREMITIES: Normal range of motion. No clubbing or cyanosis. Peripheral pulses intact. Trace bilateral lower extremity edema ASSESSMENT: Acute on chronic respiratory failure Moderate pleural effusion Status post left thoracentesis with 1.2L removed on 09/24/21 Pericardial effusion with thrombus formation in the pericardial effusion noted on echo no evidence of tamponade Recent admission and transfer to [facility] 08/2021 with Acute renal failure s/p hemodialysis, severe thrombocytopenia and concern for TTP at that time did not require plasmapheresis Typical atrial flutter (diagnosed at [facility] per records on 08/29/2021) s/p MARIA ELENA/cardioversion on 09/03/21, on Eliquis Hypertension Hyperlipidemia Diabetes, type 2 COPD Obstructive sleep apnea Mild non-obstructive coronary artery disease, per cardiac catheterization in 2019 PLAN: Continue current cardiac medications Discontinue IV lasix. Begin oral lasix 40mg BID Further recommendations pending patient course Nurse practitioner note has been reviewed by physician. Signing provider agrees with the documented findings, assessment, and plan of care. Objective - Vital Signs Vital signs: Vital Signs Temp 99.2 F 09/28/21 08:11 Pulse 96 09/28/21 08:11 Resp 18 09/28/21 08:11 BP 120/78 09/28/21 08:11 Pulse Ox 95 09/28/21 08:11 FiO2 21 09/26/21 15:06 Intake & Output 09/27/21 09/28/21 09/28/21 18:59 06:59 18:59 Output Total 400 Balance -400 Output: Urine 400 Other: Voiding Method External Catheter External Catheter - Labs CBC & Chem 7: 09/28/21 06:02 09/28/21 06:02 Labs: Abnormal Lab Results - Last 24 Hours (Table) 09/27/21 09/27/21 09/27/21 Range/Units 11:43 16:49 20:05 RBC (4.10-5.20) X 10*6/uL Hgb (12.0-15.0) g/dL Hct (37.2-46.3) % MCV (80.0-97.0) fL MCHC (32.0-37.0) g/dL RDW (11.5-14.5) % ESR (0-30) mm/Hr BUN/Creatinine Ratio (12.00-20.00) Ratio Glucose (70-110) mg/dL POC Glucose (mg/dL) 234 H 196 H 197 H (70-110) mg/dL Calcium (8.7-10.3) mg/dL C-Reactive Protein (0.00-0.80) mg/dL Procalcitonin (0.02-0.09) ng/mL Rheumatoid Factor (0-15) IU/mL 09/28/21 09/28/21 09/28/21 Range/Units 06:02 06:02 06:02 RBC 2.59 L (4.10-5.20) X 10*6/uL Hgb 7.7 L (12.0-15.0) g/dL Hct 25.2 L (37.2-46.3) % MCV 97.3 H (80.0-97.0) fL MCHC 30.6 L (32.0-37.0) g/dL RDW 15.7 H (11.5-14.5) % ESR 50 H (0-30) mm/Hr BUN/Creatinine Ratio 27.67 H (12.00-20.00) Ratio Glucose 131 H (70-110) mg/dL POC Glucose (mg/dL) (70-110) mg/dL Calcium 8.4 L (8.7-10.3) mg/dL C-Reactive Protein 2.60 H (0.00-0.80) mg/dL Procalcitonin 0.10 H (0.02-0.09) ng/mL Rheumatoid Factor 64 H (0-15) IU/mL 09/28/21 Range/Units 07:08 RBC (4.10-5.20) X 10*6/uL Hgb (12.0-15.0) g/dL Hct (37.2-46.3) % MCV (80.0-97.0) fL MCHC (32.0-37.0) g/dL RDW (11.5-14.5) % ESR (0-30) mm/Hr BUN/Creatinine Ratio (12.00-20.00) Ratio Glucose (70-110) mg/dL POC Glucose (mg/dL) 130 H (70-110) mg/dL Calcium (8.7-10.3) mg/dL C-Reactive Protein (0.00-0.80) mg/dL Procalcitonin (0.02-0.09) ng/mL Rheumatoid Factor (0-15) IU/mL Microbiology - Last 24 Hours (Table) 09/24/21 11:00 Gram Stain - Preliminary Pleural Fluid Body Fluid Culture - Preliminary
[2021-09-28 11:52] LABS: Glucose,Whole Blood 170 mg/dL (70-110)
--- NOTE | 2021-09-28 12:51 | P.PN ---
Subjective Progress Note Date: 09/28/21 Principal diagnosis: Shortness of breath The patient is a 66-year-old white female with multiple medical problems. She was recently seen in consult when admitted on 08/25/21, with acute kidney injury, anemia, and low platelets in the 20,000 range. The patient had low haptoglobin and elevated LDH. Pathologist review mentioned scattered RBC fragments. The patient was transferred to [facility] for plasmapheresis for presumed TTP. Her ADAMTS 13 however came back in the normal range. The patient was discharged home from [facility], and readmitted because of shortness of breath starting overnight. She was found to have left lower lobe infiltrate with associated small effusion. The patient denies having any chest pain. The patient denies having any cough sputum production chest tightness or wheezing. No fever or chills. Note that the patient was released from [facility] while being on anticoagulation with Eliquis. The white cell count of 5.5 with hemoglobin of 7.9 and platelet count of 182. As such, the hematologic profile is essentially improved. Creatinine is at 0.8 with a BUN of 18 and the sodium level of 138. Pro-calcitonin level is at 0.08. She has chronic edema lower extremities bilaterally. Previous echocardiogram that showed a preserved LV function. Previous Doppler of the lower extremities have shown no evidence of any DVTs. Previous CT scan of the chest has shown a borderline aneurysm of the ascending aorta. Lungs are essentially clear. The patient has been started on antibiotics empirically and the patient is currently on IV Rocephin and vancomycin. On 09/22/2021 patient seen in follow-up on medical surgical floor. Patient states she continues to have exertional dyspnea, she is currently on 4 L of oxygen satting 97%. Afebrile, hemodynamics are stable, and a complete chest discomfort, lung sounds reveal diminished breath sounds at the bases, her chest x-ray on admission showed left pleural effusion and left lower lobe infiltrate, cardiomegaly. Follow-up chest x-ray showed persistent left basilar infiltrate and left pleural effusion, the right lung was clear. ProBNP level was 993, single set of troponin was negative. Patient was tested for COVID-19 and was negative, progesterone level is negative at 0.08. CTA chest showed no evidence of central pulmonary embolism, and moderate pericardial effusion. Patient has been started on IV diuretics at 20 mg of Lasix twice daily. She is diuresing, although today's weight is not recorded. Today's labs have been reviewed, white blood cell count is 5.5, hemoglobin is 7.9, sodium is 139, potassium is 4.3, chloride is 111, B1 is 20, creatinine 0.92. Urine Legionella antigen was negative. Echocardiogram has been ordered and pending at this time. 09/23/2021 patient is seen in follow-up on medical surgical floor. Patient states she continues to be short of breath, most of time with exertion, however she's had episodes of sudden shortness of breath without exertion just sitting in the chair. Denies any chest discomfort, no cough, no phlegm production. No hemoptysis. Patient has been subjected to diuretics, she remains on Lasix 40 mg IV push twice daily, and she is maintaining negative fluid balance of 2450 ML over last 24 hours, today's labs have been reviewed. BMP showed sodium of 137, potassium is 4.0, chloride is 110, BUN is 23 creatinine 0.91. Pro-calcitonin level has been low at 0.08, and follow-up pro-calcitonin was 0.14, still not significantly elevated. Patient remains on cefepime, vancomycin has been discon tinued, ID service is following. Blood cultures have shown no growth. Patient has had no fever or chills. Patient remains on Eliquis for history of atrial flutter. Follow-up chest x-ray today showing left lower lobe infiltrate, atelectasis and left pleural effusion unchanged compared to yesterday's exam. Echocardiogram has been reviewed showing preserved LV function with EF of 55- 60%, and he did not a large circumferential pericardial effusion measuring 2.5 cm with thrombus formation in the pericardial effusion. There was no diastolic collapse or findings of cardiac tamponade. Yesterday's hemoglobin is 7.9, platelet count is 214, renal profile was unremarkable, electrolytes were unrem arkable. Suspect possibility of left hemothorax, we will obtain ultrasound of the chest for possibility of diagnostic and therapeutic thoracentesis. On 09/24/2021 patient seen in follow-up on medical surgical floor. Yesterday's ultrasound of the chest showed left pleural effusion of 10.8 cm. Across was placed on hold, patient remains on empiric antibiotics at this point, vancomycin has been discontinued cefepime continues. Pro-calcitonin level has been low. Patient has been afebrile, no cough, no phlegm production, no chest congestion. The plan is to proceed with therapy and diagnostic left-sided thoracentesis today. This was done at the bedside with Dr. Drew, and 1.25 liters of dark thin pleural fluid was removed, nonbloody, and this was sent for analysis, cytology of cultures. Patient continues on diuretics with Lasix 40 mg twice a day, he is in -2.3 L net fluid balance, lower extremity edema is improving. Patient is in sinus mechanism hemodynamically stable. On 09/28/2021 patient seen in follow-up on medical surgical floor. She is awake and alert, in no acute distress, sitting up in a chair, breathing comfortably, on room air pulse ox is 95%, vital signs have been stable, he did have a low- grade fever yesterday with a T-max of 100.2F, and a low-grade temperature this a.m. Denies any worsening dyspnea, denies any chest discomfort. She states overall her breathing has improved. She undergoes left-sided thoracentesis would removal 1.2 L of pleural fluid. Follow-up chest x-ray today showing left lower lobe infiltrate, or atelectasis. There is a small underlying pleural effusion. Patient remains on cefepime for empiric coverage, 3 sets of pro-calcitonin have been negative thus far, patient continues on oral Lasix at 40 mg twice daily. She is in negative fluid balance, lower extremity edema is improved Objective - Vital Signs Vital signs: Vital Signs Temp 99.2 F 09/28/21 08:11 Pulse 96 09/28/21 08:11 Resp 18 09/28/21 08:11 BP 120/78 09/28/21 08:11 Pulse Ox 95 09/28/21 08:11 FiO2 21 09/26/21 15:06 Intake & Output 09/27/21 09/28/21 09/28/21 18:59 06:59 18:59 Output Total 400 Balance -400 Output: Urine 400 Other: Voiding Method External Catheter External Catheter - Exam GENERAL EXAM: Alert, very pleasant, 66 y.o. on room air with a pulse ox of 95 comfortable in no apparent distress. HEAD: Normocephalic/atraumatic. EYES: Normal reaction of pupils, equal size. Conjunctiva pink, sclera white. NOSE: Clear with pink turbinates. THROAT: No erythema or exudates. NECK: No masses, no JVD, no thyroid enlargement, no adenopathy. CHEST: No chest wall deformity. Symmetrical expansion. LUNGS: Equal air entry with no crackles, wheeze, rhonchi or dullness. CVS: Regular rate and rhythm, normal S1 and S2, no gallops, no murmurs, no rubs ABDOMEN: Soft, nontender. No hepatosplenomegaly, normal bowel sounds, no guarding or rigidity. EXTREMITIES: No clubbing, no edema, no cyanosis, 2+ pulses and upper and lower extremities. MUSCULOSKELETAL: Muscle strength and tone normal. SPINE: No scoliosis or deformity SKIN: No rashes CENTRAL NERVOUS SYSTEM: Alert and oriented -3. No focal deficits, tone is normal in all 4 extremities. PSYCHIATRIC: Alert and oriented -3. Appropriate affect. Intact judgment and insight. - Labs CBC & Chem 7: 09/28/21 06:02 09/28/21 06:02 Labs: Abnormal Lab Results - Last 24 Hours (Table) 09/27/21 09/27/21 09/28/21 Range/Units 16:49 20:05 06:02 RBC (4.10-5.20) X 10*6/uL Hgb (12.0-15.0) g/dL Hct (37.2-46.3) % MCV (80.0-97.0) fL MCHC (32.0-37.0) g/dL RDW (11.5-14.5) % ESR (0-30) mm/Hr BUN/Creatinine Ratio (12.00-20.00) Ratio Glucose (70-110) mg/dL POC Glucose (mg/dL) 196 H 197 H (70-110) mg/dL Calcium (8.7-10.3) mg/dL C-Reactive Protein (0.00-0.80) mg/dL Procalcitonin 0.10 H (0.02-0.09) ng/mL Rheumatoid Factor (0-15) IU/mL 09/28/21 09/28/21 09/28/21 Range/Units 06:02 06:02 07:08 RBC 2.59 L (4.10-5.20) X 10*6/uL Hgb 7.7 L (12.0-15.0) g/dL Hct 25.2 L (37.2-46.3) % MCV 97.3 H (80.0-97.0) fL MCHC 30.6 L (32.0-37.0) g/dL RDW 15.7 H (11.5-14.5) % ESR 50 H (0-30) mm/Hr BUN/Creatinine Ratio 27.67 H (12.00-20.00) Ratio Glucose 131 H (70-110) mg/dL POC Glucose (mg/dL) 130 H (70-110) mg/dL Calcium 8.4 L (8.7-10.3) mg/dL C-Reactive Protein 2.60 H (0.00-0.80) mg/dL Procalcitonin (0.02-0.09) ng/mL Rheumatoid Factor 64 H (0-15) IU/mL 09/28/21 Range/Units 11:51 RBC (4.10-5.20) X 10*6/uL Hgb (12.0-15.0) g/dL Hct (37.2-46.3) % MCV (80.0-97.0) fL MCHC (32.0-37.0) g/dL RDW (11.5-14.5) % ESR (0-30) mm/Hr BUN/Creatinine Ratio (12.00-20.00) Ratio Glucose (70-110) mg/dL POC Glucose (mg/dL) 170 H (70-110) mg/dL Calcium (8.7-10.3) mg/dL C-Reactive Protein (0.00-0.80) mg/dL Procalcitonin (0.02-0.09) ng/mL Rheumatoid Factor (0-15) IU/mL Microbiology - Last 24 Hours (Table) 09/24/21 11:00 Gram Stain - Preliminary Pleural Fluid Body Fluid Culture - Preliminary Assessment and Plan Plan: Assessment: Left sided pleural effusion, under investigation, post left-sided thoracentesis, and the fluid could possibly transudate, awaiting final cytology. Low protein, LDH is mildly elevated. Possibility of infection and pneumonia seems to be less likely nevertheless patient continues on empiric antibiotics with cefepime, pleural fluid cultures are still pending but Gram stain remain negative Large pericardial effusion with thrombus, of unknown etiology. Echocardiogram showed no evidence of cardiac tamponade. CT surgery has been consulted. Status post left-sided thoracentesis on 09/24/2021 with removal of 1.25 L of 10 dark pleural fluid which was sent for analysis, cytology and cultures. Acute on chronic dyspnea, under investigation, improved and patient has responded well to diuretics Leg edema, chronic with episodic cellulitis involving lower extremity is bilaterally COPD, which appears to be stable Acute kidney injury, secondary to ATN/hypotension recovered Thrombocytopenia, recovered History of diabetes mellitus with diabetic neuropathy. History of sleep apnea syndrome, currently not on CPAP. History of gastroesophageal reflux disease. History of hypertension. History of hyperlipidemia. History of mild pancreatitis. History of arthritis. Prior history of [place] bariatric surgery for obesity. Mild ascending aortic aneurysm Plan: Still awaiting pleural fluid cytology Clearly the patient states she is breathing easier postthoracentesis and she is responding well to diuretics Pleural fluid cultures are still pending, Gram stain remains negative Remains on empiric antibiotics Follow pro-calcitonin level was noted Follow-up chest x-ray has been reviewed Increase activity as tolerated I have personally seen and examined the patient, performed the documentation and the assessment and plan as written. Number of minutes spent on the visit: [10] Time with Patient: Less than 30
--- NOTE | 2021-09-28 15:05 | P.PN ---
Subjective Progress Note Date: 09/28/21 Patient is a 66-year-old female with a known history of hypertension, hyperlipidemia, diabetes type 2, obstructive sleep apnea not on CPAP at home, bilateral diabetic peripheral neuropathy, anxiety and depression and prior history of smoking presents to ER with complaints of shortness of breath. Patient does have cough without any sputum production. Was also anxious on admission. No fever no chills. Patient was recently discharged from the hospital on 08/27/2021 and was transferred to [facility] for possible TTP and plasmapheresis. Was admitted to the hospital due to acute kidney injury and altered mental status and found to have schistocytes in the peripheral smear and was seen by matology. Due to severe thrombocytopenia patient was transferred to [facility] for plasmapheresis and also worsening renal function. Patient was discharged to [facility] for physical therapy. Patient was discharged home about a week ago. Last night patient developed shortness of breath and could not breathe. Patient's fianc brought her to the hospital. On admission blood pressure 164/77 pulse is 69 respiration 24 and pulse ox 94% on room air. Laboratory showed WBC 5.2 hemoglobin 8.4 and platelets 147 Sodium 139 potassium 3.7 chloride 108 bicarb is 23 BUN 23 and creatinine 0.84 and blood sugar is 220 Liver enzymes are not elevated proBNP 993 TSH 3.38 and coronavirus PCR not detected. Chest x-ray showed there is left pleural effusion and left lower lobe infiltrate which are new compared to old exam. No heart failure seen. Cardiomegaly. EKG showed sinus tachycardia and low QRS voltage. Patient was transferred to [facility] due to concern for possible TTP. Patient was evaluated by oncology and he was placed on steroids. Further work- up was performed she apparently did not require plasmapheresis. Patient developed acute kidney injury and requiring temporary hemodialysis and her creatinine peaked at 4.8. She was last hemodialyzed on 09/07/2021. He with creatinine level was normalized. Patient was also requiring intubation and [facility] anical ventilator due to altered mental status and encephalopathy and also treated for hyponatremia. Patient was successfully extubated. While here she was at [facility] she developed new onset atrial fibrillation with RVR and was started on Cardizem patient was successfully cardioverted. Patient is maintaining sinus rhythm. Patient was also started on Eliquis and also treated for NSTEMI. 2D echocardiogram during hospitalization showed left ventricular ejection fraction 60 to 65%. Steroids were later stopped by hematology. She has to be on Eliquis for 30 days and then anticoagulation needs to be discontinued. Patient was eventually transferred to inpatient rehab at [facility]. 09/20/2021 Patient is currently resting in the bed. Awake alert oriented x3. Breathing status is much better. Continue on duo nebs. No complaints of chest pain. No nausea vomiting abdominal pain or diarrhea. Patient is being continued on antibiotics for possible pneumonia Overnight T-max was 100.4. Currently afebrile. Laboratory showed WBC 3.74 hemoglobin 7.1 platelets 123 Sodium 141 potassium 4.0 chloride 110 bicarb is 20.4 BUN 20.5 and creatinine 0.8 and blood sugar is 1 4010 calcium 8.0 blood sugar is better controlled. Patient is tolerating oral diet. Chest x-ray showed persistent left basilar infiltrate and/or/effusion. Right lung is clear. 09/21/2021 Patient is seen and evaluated in follow-up this morning currently sitting up at the side of the bed extremely weak requiring 2 person assist to get up although ambulating with a walker and standby assistance. Patient continues to have some shortness of breath with exertion although maintained on 1 liter of 02 currently. Patient appears working to breathe. Patient hemoglobin was low this am and sent to [facility] with some hemolysis and a stat cbc has been reordered. Pulmonary and cardiology consulted. Chest xray ordered. Patient did receive a dose of IV lasix today. Labs pending repeat. Patient also continues with fevers and is maintained on IV abx and will consult infectious disease. 09/22/2021 Patient is seen today and was maintaining oxygen saturation of 100% on 4L and weaning as tolerated. Patient is noted to remove her oxygen often while sitting up in the chair. Patient is less dyspneic during conversation. Patient is currently afebrile and is maintained on IV antibiotic therapy in the form of cefepime with ID following. Pleural effusions noted and patient is diuresing with IV lasix. Kidney functions stable. Patient for possible thoracentesis with pulmonary if respiratory status declines. Patient continues to be anxious with episodes of shortness of breath. Encouraged incentive spirometer use and continued cough and deep breathing. Patient denies chest pain or palpitations. Cardiology following as well. 09/23/2021 Patient is seen this morning sitting up in the chair on 2 L via NC and denies worsening shortness of breath. Pulmonary following and CT surgery also consulted for concern of the pericardial effusion noted on echo with no plans for intervention at this time. cardiology following as well as hematology. Chest ultrasound ordered as patient continues with pleural effusion on the left and possible thoracentesis within the next 24 hours. continued on IV lasix for now and will repeat am labs. Patient is afebrile and denies chest pain or palpitations. Recommend to hold eliquis for now for thoracentesis. Patient also reports not having a bowel movement since admission and will add Senokot twice a day 09/24/2021 Patient is seen in follow-up this morning scheduled to undergo thoracentesis on the left status post chest ultrasound with pulmonary. Patient is currently being prepped for the thoracentesis and fluid culture and analysis will be sent. Patient's Eliquis has been on hold and will discuss with cardiology about resuming after thoracentesis. Patient is continued on IV cefepime and blood cultures have been negative. Cardiology following as well and recommend repeat echo in the morning as the echo showed an EF of 55-60% with a large circumferential pericardial effusion measuring approximately 2.5 cm with thrombus formation in the pericardial effusion with no diastolic collapse to suggest findings of cardiac tamponade. Patient is afebrile and denies worsening shortness of breath or any chest pain. Patient tolerating diet and did have a bowel movement last night. 09/25/2021 Patient is seen today and repeat echo with no evidence of tamponade. Patient is status post thoracentesis and reports to feeling shortness of breath improved. Patient is currently on room air occasionally using 2-3 liters. Patient is afebrile and is continued on IV cefepime. Awaiting cultures from the thoracentesis to determine if requiring discharge antibiotics. Encouraged increased activity as tolerated. Patient is weak. 09/26/2020 Patient is currently lying in bed. Awake alert but anxious and also moaning at times. Seems to be confused mildly. Otherwise patient is status post left thoracentesis with 1.7 L fluid removal. Likely transudative. Cultures are pending. Patient otherwise remains on IV Lasix 40 mg every 12 hours. Also on antibiotics in the form of IV cefepime. Encouraged with incentive spirometry. Laboratory pressure WBC 5.4 hemoglobin 8.0 and platelets 264 Sodium 137 potassium 3.9 chloride 106 bicarb is 28 BUN 26 and creatinine 0.78 Pulmonary and ID is on board. 09/27/2021 Patient is more awake and oriented today. Breathing status is better. On room air now. No complaints of chest pain or worsening shortness breath. No fever no chills. No cough or sputum production. Patient is being current on IV Lasix 40 mg every 12 and is also on duo nebs and increase with incentive spirometry. Patient is also on antibiotics Rocephin. Eliquis was restarted today. Patient is complaining of leg swelling right lower extremity seems to be more than left. Venous duplex scan was ordered showed no evidence of DVT. 09/28/2021 Patient is up sitting in the chair awake, alert and oriented 3 with spouse at the bedside. Patient continues to be on room air with pulmonary following closely. IV Lasix has been transitioned oral and patient is maintained on empiric and a biotics in the form of cefepime. Awaiting for finalized cultures from thoracentesis. Cardiology following as well and patient has been resumed on anticoagulation. No active bleeding noted. Chest x-ray showing left lower lobe infiltrate correlate for atelectasis or pneumonia with a small underlying pleural effusion that may be room presented. Patient does have incentive spirometer and encourage the patient to continue using at least 10 times every hour while awake. INOCENCIA globin is stable at 7.7 and white blood count remains negative at 5.66. RF factor is 64 and pro-calcitonin 0.10. Patient denies worsening shortness of breath or any chest pain or palpitations. Patient tolerating diet. Patient is weak and has been working with physical therapy and would like to go home on discharge. Encouraged increased activity as tolerated and continued incentive spirometer use. Review of systems: Constitutional: no reports of fatigue, no reports of fever, or chills Cardiovascular: No reports of chest pain or palpitations Respiratory: no reports of worsening shortness of breath and reports feeling improved, no reports of cough GI: No reports of nausea, vomiting, or diarrhea : No reports of dysuria or retention Neurovascular: reports of generalized weakness All medications have been reviewed Active Medications Acetaminophen (Acetaminophen Tab 325 Mg Tab) 650 mg PO Q6HR PRN PRN Reason: Fever and/ or MILD Pain Last Admin: 07/21/22 17:45 Dose: 650 mg Hydrocodone Bitart/Acetaminophen (Hydrocodone/Apap 5-325mg 1 Each Tab) 1 each PO Q6HR PRN PRN Reason: Moderate Pain Last Admin: 09/27/21 20:01 Dose: 1 each Albuterol/Ipratropium (Ipratropium-Albuterol 3 Ml Neb) 3 ml INHALATION RT-QID PRN PRN Reason: Shortness Of Breath Or Wheezing Last Admin: 09/27/21 20:15 Dose: 3 ml Apixaban (Apixaban 5 Mg Tab) 5 mg PO BID [facility]; Protocol Last Admin: 09/28/21 08:27 Dose: 5 mg Cyanocobalamin (Cyanocobalamin 500 Mcg Tab) 1,000 mcg PO DAILY [facility] Last Admin: 09/28/21 08:27 Dose: 1,000 mcg Furosemide (Furosemide 40 Mg Tab) 40 mg PO BID@0900,1600 JAQUELINE Sodium Chloride (Saline 0.9%) 1,000 mls @ 20 mls/hr IV .Q24H [facility] Last Admin: 09/28/21 05:25 Dose: 20 mls/hr Cefepime HCl 2 gm/ Sodium (Chloride) 100 mls @ 25 mls/hr IVPB Q8HR [facility]; Protocol Last Admin: 09/28/21 08:27 Dose: 25 mls/hr Insulin Aspart (Insulin Aspart (Novolog) 100 Unit/Ml Vial) 0 unit SQ ACHS [facility]; Protocol Last Admin: 09/28/21 12:24 Dose: 2 unit Miscellaneous Information (Pneumonia Protocol Utilized 1 Each Misc) 1 each PO ONCE PRN PRN Reason: Per Protocol Miscellaneous Information (Magnesium Replacement Protocol 1 Each Misc) 1 each MISCELLANE DAILY PRN; Protocol PRN Reason: Per Protocol Ondansetron HCl (Ondansetron 4 Mg/2 Ml Vial) 4 mg IVP Q6HR PRN PRN Reason: Nausea And Vomiting Last Admin: 09/25/21 02:59 Dose: 4 mg Pantoprazole Sodium (Pantoprazole 40 Mg Tablet) 40 mg PO AC-BRKFST [facility] Last Admin: 09/28/21 08:27 Dose: 40 mg Senna (Sennosides 8.6 Mg Tab) 8.6 mg PO BID PRN PRN Reason: Constipation Trazodone HCl (Trazodone Hcl 100 Mg Tab) 100 mg PO HS [facility] Last Admin: 09/27/21 22:30 Dose: 100 mg Physical exam: Patient is sitting up in the chair, no acute distress, awake alert and oriented.. HEENT: Normocephalic. Neck is supple. Pupils reactive. Nostrils clear. Oral cavity is moist. Neck reveals no JVD, carotid bruits, or thyromegaly. CHEST EXAMINATION: Trachea is central. Symmetrical expansion. diminished sounds bilaterally and minimal basilar crackles. No wheezing. CARDIAC: Normal S1, S2 with no gallops. No murmurs ABDOMEN: Soft. Bowel sounds present. Nontender. No organomegaly. No abdominal bruits. Extremities: Bilateral trace edema. No clubbing or cyanosis Neurologically awake, alert, oriented x3 with well-coordinated movements. diffuse weakness noted Skin: No rash or skin lesions. Psychiatric: Cooperative. Non-suicidal Musculoskeletal: No joint swelling or deformity. Normal range of motion. Assessment: Large left pleural effusion status post thoracentesis with approximately 1.7 L removed Recent admission with [facility]LOS requiring HD, A fib, NSTEMI , possible thrombocytopenia/TTP and was transferred to [facility] on 08/27/2021 Acute COPD exacerbation. large left pleural effusions status post thoracentesis with approximately 1.5 L removed and sent for culture and analysis Large circumferential pericardial effusion measuring approximately 2.5 cm with thrombus formation in the pericardial effusion with no diastolic collapse to suggest findings of cardiac tamponade Normocytic anemia with thrombocytopenia Hypertension Hyperlipidemia GERD Diabetes type 2 [id number], uncontrolled with hypoglycemia Diabetic peripheral neuropathy bilateral Obstructive sleep apnea not using any CPAP at home currently Borderline aneurysm of the ascending aorta Anxiety/depression Prior history of smoking DVT prophylaxis GI prophylaxis Full code Plan: Patient is currently maintained on IV antibiotics in the form of cefepime while awaiting thoracentesis cultures. Blood cultures have been negative. Infectious disease is following. Cardiology following as well and most recent EF showing 55-60% and there is some pericardial effusion with thrombus with no sign of tamponade Patient is status post thoracentesis on the left at approximately 1.2 L removed and pending analysis and culture Lasix is being transitioned to oral Eliquis has been resumed Recommend continue monitoring Accu-Cheks before meals and at bedtime a sliding scale PT/OT following and working with the patient, encourage the patient to increase activity as tolerated as she reports she wants to return home with her boyfriend Recommend to continue using incentive spirometer at least 10 times every hour while awake. Due to multiple complex medical issues, prognosis is guarded The impression and plan of care has been dictated by Taina Yuen, Nurse Practitioner as directed. Dr. Yesica MD I have performed a history and examination and MDM of this patient, discussed the same with the dictator, and agree with the dictator's assessment and plan as written ,documented as a scribe. Based on total visit time, I have performed more than 50% of the visit. Objective - Vital Signs Vital signs: Vital Signs Temp 99.4 F 09/28/21 14:00 Pulse 103 H 09/28/21 14:00 Resp 17 09/28/21 14:00 BP 109/69 09/28/21 14:00 Pulse Ox 97 09/28/21 14:00 FiO2 21 09/26/21 15:06 Intake & Output 09/27/21 09/28/21 09/28/21 18:59 06:59 18:59 Output Total 400 1300 Balance -400 -1300 Output: Urine 400 1300 Other: Voiding Method External Catheter External Catheter - Labs CBC & Chem 7: 09/28/21 06:02 09/28/21 06:02 Labs: Abnormal Lab Results - Last 24 Hours (Table) 09/27/21 09/27/21 09/28/21 Range/Units 16:49 20:05 06:02 RBC (4.10-5.20) X 10*6/uL Hgb (12.0-15.0) g/dL Hct (37.2-46.3) % MCV (80.0-97.0) fL MCHC (32.0-37.0) g/dL RDW (11.5-14.5) % ESR (0-30) mm/Hr BUN/Creatinine Ratio (12.00-20.00) Ratio Glucose (70-110) mg/dL POC Glucose (mg/dL) 196 H 197 H (70-110) mg/dL Calcium (8.7-10.3) mg/dL C-Reactive Protein (0.00-0.80) mg/dL Procalcitonin 0.10 H (0.02-0.09) ng/mL Rheumatoid Factor (0-15) IU/mL 09/28/21 09/28/21 09/28/21 Range/Units 06:02 06:02 07:08 RBC 2.59 L (4.10-5.20) X 10*6/uL Hgb 7.7 L (12.0-15.0) g/dL Hct 25.2 L (37.2-46.3) % MCV 97.3 H (80.0-97.0) fL MCHC 30.6 L (32.0-37.0) g/dL RDW 15.7 H (11.5-14.5) % ESR 50 H (0-30) mm/Hr BUN/Creatinine Ratio 27.67 H (12.00-20.00) Ratio Glucose 131 H (70-110) mg/dL POC Glucose (mg/dL) 130 H (70-110) mg/dL Calcium 8.4 L (8.7-10.3) mg/dL C-Reactive Protein 2.60 H (0.00-0.80) mg/dL Procalcitonin (0.02-0.09) ng/mL Rheumatoid Factor 64 H (0-15) IU/mL 09/28/21 Range/Units 11:51 RBC (4.10-5.20) X 10*6/uL Hgb (12.0-15.0) g/dL Hct (37.2-46.3) % MCV (80.0-97.0) fL MCHC (32.0-37.0) g/dL RDW (11.5-14.5) % ESR (0-30) mm/Hr BUN/Creatinine Ratio (12.00-20.00) Ratio Glucose (70-110) mg/dL POC Glucose (mg/dL) 170 H (70-110) mg/dL Calcium (8.7-10.3) mg/dL C-Reactive Protein (0.00-0.80) mg/dL Procalcitonin (0.02-0.09) ng/mL Rheumatoid Factor (0-15) IU/mL Microbiology - Last 24 Hours (Table) 09/24/21 11:00 Gram Stain - Preliminary Pleural Fluid Body Fluid Culture - Preliminary
[2021-09-28] MEDS: IPRATROPIUM-ALBUTEROL 3 ML NEB INHALATION PRN ×2 (15:59→20:20)
--- NOTE | 2021-09-28 16:44 | P.PN ---
Subjective Progress Note Date: 09/28/21 Principal diagnosis: anemia and thrombocytopenia In f/u today pt is eating her lunch, she feels pretty good, no acute c/o, she is not moving around much but, breathing with activity is better since having pleural fluid drained. Objective - Vital Signs Vital signs: Vital Signs Temp 99.4 F 09/28/21 14:00 Pulse 95 09/28/21 16:07 Resp 17 09/28/21 14:00 BP 109/69 09/28/21 14:00 Pulse Ox 97 09/28/21 14:00 FiO2 21 09/26/21 15:06 Intake & Output 09/27/21 09/28/21 09/28/21 18:59 06:59 18:59 Output Total 400 1300 Balance -400 -1300 Output: Urine 400 1300 Other: Voiding Method External Catheter External Catheter - Constitutional General appearance: Present: cooperative, no acute distress, obese - EENT Eyes: Present: anicteric sclerae, EOMI ENT: Present: hearing grossly normal - Respiratory Respiratory: bilateral: CTA - Cardiovascular Rhythm: regular Heart sounds: normal: S1, S2 - Peripheral edema leg Peripheral Edema: bilateral: Trace (diminished in LLL) - Gastrointestinal General gastrointestinal: Present: normal bowel sounds, soft - Neurologic Neurologic: Present: CNII-XII intact (grossly) - Musculoskeletal Musculoskeletal: Present: generalized weakness - Psychiatric Psychiatric: Present: A&O x's 3, appropriate affect, intact judgment & insight - Labs CBC & Chem 7: 09/28/21 06:02 09/28/21 06:02 Labs: Abnormal Lab Results - Last 24 Hours (Table) 09/27/21 09/27/21 09/28/21 Range/Units 16:49 20:05 06:02 RBC (4.10-5.20) X 10*6/uL Hgb (12.0-15.0) g/dL Hct (37.2-46.3) % MCV (80.0-97.0) fL MCHC (32.0-37.0) g/dL RDW (11.5-14.5) % ESR (0-30) mm/Hr BUN/Creatinine Ratio (12.00-20.00) Ratio Glucose (70-110) mg/dL POC Glucose (mg/dL) 196 H 197 H (70-110) mg/dL Calcium (8.7-10.3) mg/dL C-Reactive Protein (0.00-0.80) mg/dL Procalcitonin 0.10 H (0.02-0.09) ng/mL Rheumatoid Factor (0-15) IU/mL 09/28/21 09/28/21 09/28/21 Range/Units 06:02 06:02 07:08 RBC 2.59 L (4.10-5.20) X 10*6/uL Hgb 7.7 L (12.0-15.0) g/dL Hct 25.2 L (37.2-46.3) % MCV 97.3 H (80.0-97.0) fL MCHC 30.6 L (32.0-37.0) g/dL RDW 15.7 H (11.5-14.5) % ESR 50 H (0-30) mm/Hr BUN/Creatinine Ratio 27.67 H (12.00-20.00) Ratio Glucose 131 H (70-110) mg/dL POC Glucose (mg/dL) 130 H (70-110) mg/dL Calcium 8.4 L (8.7-10.3) mg/dL C-Reactive Protein 2.60 H (0.00-0.80) mg/dL Procalcitonin (0.02-0.09) ng/mL Rheumatoid Factor 64 H (0-15) IU/mL 09/28/21 Range/Units 11:51 RBC (4.10-5.20) X 10*6/uL Hgb (12.0-15.0) g/dL Hct (37.2-46.3) % MCV (80.0-97.0) fL MCHC (32.0-37.0) g/dL RDW (11.5-14.5) % ESR (0-30) mm/Hr BUN/Creatinine Ratio (12.00-20.00) Ratio Glucose (70-110) mg/dL POC Glucose (mg/dL) 170 H (70-110) mg/dL Calcium (8.7-10.3) mg/dL C-Reactive Protein (0.00-0.80) mg/dL Procalcitonin (0.02-0.09) ng/mL Rheumatoid Factor (0-15) IU/mL Microbiology - Last 24 Hours (Table) 09/24/21 11:00 Gram Stain - Preliminary Pleural Fluid Body Fluid Culture - Preliminary Assessment and Plan (1) Bicytopenia Current Visit: Yes Status: Acute Priority: Medium Code(s): D75.89 - OTHER SPECIFIED DISEASES OF BLOOD AND BLOOD-FORMING ORGANS SNOMED Code(s): 81326316 (2) Pleural effusion, left Current Visit: Yes Status: Acute Priority: High Code(s): J90 - PLEURAL EFFUSION, NOT ELSEWHERE CLASSIFIED SNOMED Code(s): 25445716 Plan: Plt have recovered and are now WNL. Anemia persists, no recent transfusions needed. Transfuse for Hgb <7. Recent acute and serious illness likely contributed to anemia-of sudden onset. Slow to recover. Previous labs all reviewed, few additional labs ordered. No underlying paraproteinemia. F/U with Hem until Hgb recovered or, further testing if needed. Pl fluid neg for malignancy cells
[2021-09-28 16:49] LABS: Glucose,Whole Blood 216 mg/dL (70-110)
[2021-09-28] MEDS: FUROSEMIDE 40 MG TAB PO SCH (16:54)
[2021-09-28 20:42] LABS: Glucose,Whole Blood 246 mg/dL (70-110)
[2021-09-28] MEDS: traZODone HCL 100 MG TAB PO SCH (20:51)
[2021-09-28] MEDS: ACETAMINOPHEN TAB 325 MG TAB PO PRN (20:51)
[2021-09-28 23:16] LABS: % Iron Saturation 16.89 (12.00-45.00)
[2021-09-29] MEDS: CEFEPIME 2 GM in SODIUM CHLORIDE 0.9% 100 ML IVPB SCH ×3 (00:03→15:36)
[2021-09-29 06:51] LABS: Basophils % (A) 0 %; Eosinophils # (A) 0.3 k/uL (0-0.7); Eosinophils % (A) 5 %; HCT 26.6 % (34.0-46.0); HGB 8.6 gm/dL (11.4-16.0); Hypochromasia Moderate; Lymphocytes % (A) 18 %; MCH 30.8 pg (25.0-35.0); MCHC 32.2 g/dL (31.0-37.0); MCV 95.5 fL (80.0-100.0); Mean Platelet Volume 7.8; Monocytes # (A) 0.5 k/uL (0-1.0); Monocytes % (A) 10 %; Neutrophils # (A) 3.3 k/uL (1.3-7.7); Neutrophils % (A) 64 %; Platelet Count 240 k/uL (150-450); RBC 2.79 m/uL (3.80-5.40); RDW 15.6 % (11.5-15.5); WBC 5.2 k/uL (3.8-10.6)
[2021-09-29 07:04] LABS: African American GFR (CKD) >90 (>60 ml/min/1.73 sqM); Anion Gap 4 mmol/L; Blood Urea Nitrogen 26 mg/dL (7-17); Calcium 7.9 mg/dL (8.4-10.2); Carbon Dioxide 28 mmol/L (22-30); Chloride 106 mmol/L (98-107); Glucose 126 mg/dL (74-99); Non-African American GFR(CKD) 80 (>60 ml/min/1.73 sqM); Potassium 3.1 mmol/L (3.5-5.1); Sodium 138 mmol/L (137-145)
[2021-09-29 07:15] LABS: Glucose,Whole Blood 146 mg/dL (70-110)
[2021-09-29] MEDS: SODIUM CHLORIDE 0.9% 1,000 ML IV SCH (08:37)
[2021-09-29] MEDS: METOPROLOL TARTRATE 25 MG TAB PO SCH ×2 (09:56→20:29)
[2021-09-29] MEDS: FUROSEMIDE 40 MG TAB PO SCH ×2 (09:56→15:36)
[2021-09-29] MEDS: CYANOCOBALAMIN 500 MCG TAB PO SCH (09:56)
[2021-09-29] MEDS: PANTOPRAZOLE 40 MG TABLET PO SCH (09:57)
[2021-09-29] MEDS: INSULIN ASPART (NovoLOG) 100 UNIT/ML VIAL SQ SCH ×4 (09:57→22:17)
[2021-09-29] MEDS: APIXABAN 5 MG TAB PO SCH ×2 (09:57→20:29)
[2021-09-29] MEDS: HYDROcodone/APAP 5-325MG 1 EACH TAB PO PRN ×2 (10:04→22:51)
--- NOTE | 2021-09-29 10:09 | P.PN ---
Subjective Progress Note Date: 09/29/21 HISTORY OF PRESENT ILLNESS: Patient examined this morning at the bedside. Patient denies chest pain or pressure. She states her shortness of breath has significantly improved. She denies any dizziness or light headedness. Denies any palpitations. Vital signs are stable. She is status post left-sided thoracentesis. She remains on IV lasix. 09/29/2021 Patient examined this morning at the bedside. Patient denies chest pain or pressure. She currently denies shortness of breath. She has been transitioned to oral Lasix. Telemetry reveals sinus tachycardia with a heart rate around 100. Blood pressure 114/70. PHYSICAL EXAM: VITAL SIGNS: Reviewed. GENERAL: Well-developed in no acute distress. NECK: Supple. No JVD or thyromegaly LUNGS: Respirations even and unlabored. Lungs diminished to auscultation bilaterally. HEART: Regular rate and rhythm. S1 and S2 heard. EXTREMITIES: Normal range of motion. No clubbing or cyanosis. Peripheral pulses intact. Trace bilateral lower extremity edema ASSESSMENT: Acute on chronic respiratory failure Moderate pleural effusion Status post left thoracentesis with 1.2L removed on 09/24/21 Pericardial effusion with thrombus formation in the pericardial effusion noted on echo no evidence of tamponade Recent admission and transfer to [facility] 08/2021 with Acute renal failure s/p hemodialysis, severe thrombocytopenia and concern for TTP at that time did not require plasmapheresis Typical atrial flutter (diagnosed at [facility] per records on 08/29/2021) s/p MARIA ELENA/cardioversion on 09/03/21, on Eliquis Hypertension Hyperlipidemia Diabetes, type 2 COPD Obstructive sleep apnea Mild non-obstructive coronary artery disease, per cardiac catheterization in 2019 PLAN: Continue current cardiac medications Continue oral Lasix. Add metoprolol 25 mg twice a day for optimal heart rate control Patient is stable for discharge home today from a cardiac standpoint Nurse practitioner note has been reviewed by physician. Signing provider agrees with the documented findings, assessment, and plan of care. Objective - Vital Signs Vital signs: Vital Signs Temp 98.7 F 09/29/21 08:00 Pulse 93 09/29/21 08:00 Resp 17 09/29/21 08:00 BP 114/70 09/29/21 08:00 Pulse Ox 93 L 09/29/21 08:00 FiO2 21 09/26/21 15:06 Intake & Output 09/28/21 09/29/21 09/29/21 18:59 06:59 18:59 Output Total 1300 400 Balance -1300 -400 Output: Urine 1300 400 Other: Voiding Method External Catheter External Catheter - Labs CBC & Chem 7: 09/29/21 06:26 09/29/21 06:26 Labs: Abnormal Lab Results - Last 24 Hours (Table) 09/28/21 09/28/21 09/28/21 Range/Units 11:51 15:57 16:48 RBC (3.80-5.40) m/uL Hgb (11.4-16.0) gm/dL Hct (34.0-46.0) % RDW (11.5-15.5) % Potassium (3.5-5.1) mmol/L BUN (7-17) mg/dL Glucose (74-99) mg/dL POC Glucose (mg/dL) 170 H 216 H (70-110) mg/dL Calcium (8.4-10.2) mg/dL Iron 45 L (50-170) ug/dL Transferrin 192.0 L (204.0-354.0) mg/dL Ferritin 944.0 H (10.0-291.0) ng/mL Vitamin B12 1443.0 H (200.0-944.0) pg/mL 09/28/21 09/29/21 09/29/21 Range/Units 20:39 06:26 06:26 RBC 2.79 L (3.80-5.40) m/uL Hgb 8.6 L (11.4-16.0) gm/dL Hct 26.6 L (34.0-46.0) % RDW 15.6 H (11.5-15.5) % Potassium 3.1 L (3.5-5.1) mmol/L BUN 26 H (7-17) mg/dL Glucose 126 H (74-99) mg/dL POC Glucose (mg/dL) 246 H (70-110) mg/dL Calcium 7.9 L (8.4-10.2) mg/dL Iron (50-170) ug/dL Transferrin (204.0-354.0) mg/dL Ferritin (10.0-291.0) ng/mL Vitamin B12 (200.0-944.0) pg/mL 09/29/21 Range/Units 07:04 RBC (3.80-5.40) m/uL Hgb (11.4-16.0) gm/dL Hct (34.0-46.0) % RDW (11.5-15.5) % Potassium (3.5-5.1) mmol/L BUN (7-17) mg/dL Glucose (74-99) mg/dL POC Glucose (mg/dL) 146 H (70-110) mg/dL Calcium (8.4-10.2) mg/dL Iron (50-170) ug/dL Transferrin (204.0-354.0) mg/dL Ferritin (10.0-291.0) ng/mL Vitamin B12 (200.0-944.0) pg/mL Microbiology - Last 24 Hours (Table) 09/28/21 06:02 Blood Culture - Preliminary Blood No Growth after 24 hours 09/24/21 11:00 Anaerobic Culture - Final Pleural Fluid 09/24/21 11:00 Gram Stain - Final Pleural Fluid Body Fluid Culture - Final
[2021-09-29] MEDS: IPRATROPIUM-ALBUTEROL 3 ML NEB INHALATION PRN ×3 (11:23→20:05)
[2021-09-29 11:28] LABS: Glucose,Whole Blood 184 mg/dL (70-110)
--- NOTE | 2021-09-29 12:42 | P.PN ---
Subjective Progress Note Date: 09/29/21 Principal diagnosis: Shortness of breath The patient is a 66-year-old white female with multiple medical problems. She was recently seen in consult when admitted on 08/25/21, with acute kidney injury, anemia, and low platelets in the 20,000 range. The patient had low haptoglobin and elevated LDH. Pathologist review mentioned scattered RBC fragments. The patient was transferred to [facility] for plasmapheresis for presumed TTP. Her ADAMTS 13 however came back in the normal range. The patient was discharged home from [facility], and readmitted because of shortness of breath starting overnight. She was found to have left lower lobe infiltrate with associated small effusion. The patient denies having any chest pain. The patient denies having any cough sputum production chest tightness or wheezing. No fever or chills. Note that the patient was released from [facility] while being on anticoagulation with Eliquis. The white cell count of 5.5 with hemoglobin of 7.9 and platelet count of 182. As such, the hematologic profile is essentially improved. Creatinine is at 0.8 with a BUN of 18 and the sodium level of 138. Pro-calcitonin level is at 0.08. She has chronic edema lower extremities bilaterally. Previous echocardiogram that showed a preserved LV function. Previous Doppler of the lower extremities have shown no evidence of any DVTs. Previous CT scan of the chest has shown a borderline aneurysm of the ascending aorta. Lungs are essentially clear. The patient has been started on antibiotics empirically and the patient is currently on IV Rocephin and vancomycin. On 09/22/2021 patient seen in follow-up on medical surgical floor. Patient states she continues to have exertional dyspnea, she is currently on 4 L of oxygen satting 97%. Afebrile, hemodynamics are stable, and a complete chest discomfort, lung sounds reveal diminished breath sounds at the bases, her chest x-ray on admission showed left pleural effusion and left lower lobe infiltrate, cardiomegaly. Follow-up chest x-ray showed persistent left basilar infiltrate and left pleural effusion, the right lung was clear. ProBNP level was 993, single set of troponin was negative. Patient was tested for COVID-19 and was negative, progesterone level is negative at 0.08. CTA chest showed no evidence of central pulmonary embolism, and moderate pericardial effusion. Patient has been started on IV diuretics at 20 mg of Lasix twice daily. She is diuresing, although today's weight is not recorded. Today's labs have been reviewed, white blood cell count is 5.5, hemoglobin is 7.9, sodium is 139, potassium is 4.3, chloride is 111, B1 is 20, creatinine 0.92. Urine Legionella antigen was negative. Echocardiogram has been ordered and pending at this time. 09/23/2021 patient is seen in follow-up on medical surgical floor. Patient states she continues to be short of breath, most of time with exertion, however she's had episodes of sudden shortness of breath without exertion just sitting in the chair. Denies any chest discomfort, no cough, no phlegm production. No hemoptysis. Patient has been subjected to diuretics, she remains on Lasix 40 mg IV push twice daily, and she is maintaining negative fluid balance of 2450 ML over last 24 hours, today's labs have been reviewed. BMP showed sodium of 137, potassium is 4.0, chloride is 110, BUN is 23 creatinine 0.91. Pro-calcitonin level has been low at 0.08, and follow-up pro-calcitonin was 0.14, still not significantly elevated. Patient remains on cefepime, vancomycin has been discon tinued, ID service is following. Blood cultures have shown no growth. Patient has had no fever or chills. Patient remains on Eliquis for history of atrial flutter. Follow-up chest x-ray today showing left lower lobe infiltrate, atelectasis and left pleural effusion unchanged compared to yesterday's exam. Echocardiogram has been reviewed showing preserved LV function with EF of 55- 60%, and he did not a large circumferential pericardial effusion measuring 2.5 cm with thrombus formation in the pericardial effusion. There was no diastolic collapse or findings of cardiac tamponade. Yesterday's hemoglobin is 7.9, platelet count is 214, renal profile was unremarkable, electrolytes were unrem arkable. Suspect possibility of left hemothorax, we will obtain ultrasound of the chest for possibility of diagnostic and therapeutic thoracentesis. On 09/24/2021 patient seen in follow-up on medical surgical floor. Yesterday's ultrasound of the chest showed left pleural effusion of 10.8 cm. Across was placed on hold, patient remains on empiric antibiotics at this point, vancomycin has been discontinued cefepime continues. Pro-calcitonin level has been low. Patient has been afebrile, no cough, no phlegm production, no chest congestion. The plan is to proceed with therapy and diagnostic left-sided thoracentesis today. This was done at the bedside with Dr. Drew, and 1.25 liters of dark thin pleural fluid was removed, nonbloody, and this was sent for analysis, cytology of cultures. Patient continues on diuretics with Lasix 40 mg twice a day, he is in -2.3 L net fluid balance, lower extremity edema is improving. Patient is in sinus mechanism hemodynamically stable. On 09/28/2021 patient seen in follow-up on medical surgical floor. She is awake and alert, in no acute distress, sitting up in a chair, breathing comfortably, on room air pulse ox is 95%, vital signs have been stable, he did have a low- grade fever yesterday with a T-max of 100.2F, and a low-grade temperature this a.m. Denies any worsening dyspnea, denies any chest discomfort. She states overall her breathing has improved. She undergoes left-sided thoracentesis would removal 1.2 L of pleural fluid. Follow-up chest x-ray today showing left lower lobe infiltrate, or atelectasis. There is a small underlying pleural effusion. Patient remains on cefepime for empiric coverage, 3 sets of pro-calcitonin have been negative thus far, patient continues on oral Lasix at 40 mg twice daily. She is in negative fluid balance, lower extremity edema is improved On 09/29/2021 patient seen in follow-up on medical surgical floor. She is resting in the recliner, she has been tolerating ambulation, her lower extremity edema is improving, patient is breathing comfortably although still has exertional dyspnea. Overall improved, room air pulse ox is 93%, vital signs have been stable. Remains on oral diuretics with Lasix 40 mg twice daily, remains on empiric antibiotics, serum pro-calcitonin level has been low, total fluid cultures have been negative. She denies any worsening dyspnea or cough, no complaints of chest discomfort, today's labs have been reviewed with the tocometer 5.2, hemoglobin is 8.6, sodium is 138, potassium 3.1, the rest of the electrolytes and renal profile were unremarkable. Objective - Vital Signs Vital signs: Vital Signs Temp 98.7 F 09/29/21 08:00 Pulse 85 09/29/21 11:34 Resp 17 09/29/21 08:00 BP 114/70 09/29/21 08:00 Pulse Ox 93 L 09/29/21 08:00 FiO2 21 09/26/21 15:06 Intake & Output 09/28/21 09/29/21 09/29/21 18:59 06:59 18:59 Output Total 1300 1400 Balance -1300 -1400 Output: Urine 1300 1400 Other: Voiding Method External Catheter External Catheter - Exam GENERAL EXAM: Alert, very pleasant, 66 y.o. on room air with a pulse ox of 95 comfortable in no apparent distress. HEAD: Normocephalic/atraumatic. EYES: Normal reaction of pupils, equal size. Conjunctiva pink, sclera white. NOSE: Clear with pink turbinates. THROAT: No erythema or exudates. NECK: No masses, no JVD, no thyroid enlargement, no adenopathy. CHEST: No chest wall deformity. Symmetrical expansion. LUNGS: Equal air entry with no crackles, wheeze, rhonchi or dullness. CVS: Regular rate and rhythm, normal S1 and S2, no gallops, no murmurs, no rubs ABDOMEN: Soft, nontender. No hepatosplenomegaly, normal bowel sounds, no guarding or rigidity. EXTREMITIES: No clubbing, no edema, no cyanosis, 2+ pulses and upper and lower extremities. MUSCULOSKELETAL: Muscle strength and tone normal. SPINE: No scoliosis or deformity SKIN: No rashes CENTRAL NERVOUS SYSTEM: Alert and oriented -3. No focal deficits, tone is normal in all 4 extremities. PSYCHIATRIC: Alert and oriented -3. Appropriate affect. Intact judgment and insight. - Labs CBC & Chem 7: 09/29/21 06:26 09/29/21 06:26 Labs: Abnormal Lab Results - Last 24 Hours (Table) 09/28/21 09/28/21 09/28/21 Range/Units 15:57 15:57 16:48 RBC (3.80-5.40) m/uL Hgb (11.4-16.0) gm/dL Hct (34.0-46.0) % RDW (11.5-15.5) % Potassium (3.5-5.1) mmol/L BUN (7-17) mg/dL Glucose (74-99) mg/dL POC Glucose (mg/dL) 216 H (70-110) mg/dL Calcium (8.4-10.2) mg/dL Iron 45 L (50-170) ug/dL Transferrin 192.0 L (204.0-354.0) mg/dL Ferritin 944.0 H (10.0-291.0) ng/mL Vitamin B12 1443.0 H (200.0-944.0) pg/mL RBC Folate 1,413 H (280 - 791) ng/mL 09/28/21 09/29/21 09/29/21 Range/Units 20:39 06:26 06:26 RBC 2.79 L (3.80-5.40) m/uL Hgb 8.6 L (11.4-16.0) gm/dL Hct 26.6 L (34.0-46.0) % RDW 15.6 H (11.5-15.5) % Potassium 3.1 L (3.5-5.1) mmol/L BUN 26 H (7-17) mg/dL Glucose 126 H (74-99) mg/dL POC Glucose (mg/dL) 246 H (70-110) mg/dL Calcium 7.9 L (8.4-10.2) mg/dL Iron (50-170) ug/dL Transferrin (204.0-354.0) mg/dL Ferritin (10.0-291.0) ng/mL Vitamin B12 (200.0-944.0) pg/mL RBC Folate (280 - 791) ng/mL 09/29/21 09/29/21 Range/Units 07:04 11:26 RBC (3.80-5.40) m/uL Hgb (11.4-16.0) gm/dL Hct (34.0-46.0) % RDW (11.5-15.5) % Potassium (3.5-5.1) mmol/L BUN (7-17) mg/dL Glucose (74-99) mg/dL POC Glucose (mg/dL) 146 H 184 H (70-110) mg/dL Calcium (8.4-10.2) mg/dL Iron (50-170) ug/dL Transferrin (204.0-354.0) mg/dL Ferritin (10.0-291.0) ng/mL Vitamin B12 (200.0-944.0) pg/mL RBC Folate (280 - 791) ng/mL Microbiology - Last 24 Hours (Table) 09/28/21 06:02 Blood Culture - Preliminary Blood No Growth after 24 hours 09/24/21 11:00 Anaerobic Culture - Final Pleural Fluid 09/24/21 11:00 Gram Stain - Final Pleural Fluid Body Fluid Culture - Final Assessment and Plan Plan: Assessment: Left sided pleural effusion, under investigation, post left-sided thoracentesis, and the fluid could possibly transudate, awaiting final cytology. Low protein, LDH is mildly elevated. Possibility of infection and pneumonia seems to be less likely nevertheless patient continues on empiric antibiotics with cefepime, pleural fluid cultures are still pending but Gram stain remain negative Large pericardial effusion with thrombus, of unknown etiology. Echocardiogram showed no evidence of cardiac tamponade. CT surgery has been consulted. Status post left-sided thoracentesis on 09/24/2021 with removal of 1.25 L of 10 dark pleural fluid, pleural fluid showed possibility of transudative fluid, cytology and cultures were negative for malignancy or infection Acute on chronic dyspnea, under investigation, improved and patient has r esponded well to diuretics Leg edema, chronic with episodic cellulitis involving lower extremity is bilaterally COPD, which appears to be stable Acute kidney injury, secondary to ATN/hypotension recovered Thrombocytopenia, recovered History of diabetes mellitus with diabetic neuropathy. History of sleep apnea syndrome, currently not on CPAP. History of gastroesophageal reflux disease. History of hypertension. History of hyperlipidemia. History of mild pancreatitis. History of arthritis. Prior history of [place] bariatric surgery for obesity. Mild ascending aortic aneurysm Plan: Pleural fluid cytology has shown normal cytologically malignant cells Pleural fluid cultures have shown no growth Serum procalcitonin remains negative Recommend stopping the antibiotics Continue oral diuretics Patient can be considered for discharge home from pulmonary perspective Outpatient follow-up with Dr. Drew in the office in 7-10 days I have personally seen and examined the patient, performed the documentation and the assessment and plan as written. Number of minutes spent on the visit: [10] Time with Patient: Less than 30
[2021-09-29] MEDS: ACETAMINOPHEN TAB 325 MG TAB PO PRN ×2 (14:59→20:32)
[2021-09-29] MEDS: POTASSIUM CHLORIDE 10 MEQ in WATER FOR INJECTION 1 100ML.BAG IVPB SCH ×5 (15:00→23:35)
[2021-09-29 15:10] LABS: C-ANCA <1:20 Titer (<1:20)
--- NOTE | 2021-09-29 15:33 | P.PN ---
Subjective Progress Note Date: 09/29/21 Patient is a 66-year-old female with a known history of hypertension, hyperlipidemia, diabetes type 2, obstructive sleep apnea not on CPAP at home, bilateral diabetic peripheral neuropathy, anxiety and depression and prior history of smoking presents to ER with complaints of shortness of breath. Patient does have cough without any sputum production. Was also anxious on admission. No fever no chills. Patient was recently discharged from the hospital on 08/27/2021 and was transferred to [facility] for possible TTP and plasmapheresis. Was admitted to the hospital due to acute kidney injury and altered mental status and found to have schistocytes in the peripheral smear and was seen by matology. Due to severe thrombocytopenia patient was transferred to [facility] for plasmapheresis and also worsening renal function. Patient was discharged to [facility] for physical therapy. Patient was discharged home about a week ago. Last night patient developed shortness of breath and could not breathe. Patient's fianc brought her to the hospital. On admission blood pressure 164/77 pulse is 69 respiration 24 and pulse ox 94% on room air. Laboratory showed WBC 5.2 hemoglobin 8.4 and platelets 147 Sodium 139 potassium 3.7 chloride 108 bicarb is 23 BUN 23 and creatinine 0.84 and blood sugar is 220 Liver enzymes are not elevated proBNP 993 TSH 3.38 and coronavirus PCR not detected. Chest x-ray showed there is left pleural effusion and left lower lobe infiltrate which are new compared to old exam. No heart failure seen. Cardiomegaly. EKG showed sinus tachycardia and low QRS voltage. Patient was transferred to [facility] due to concern for possible TTP. Patient was evaluated by oncology and he was placed on steroids. Further work- up was performed she apparently did not require plasmapheresis. Patient developed acute kidney injury and requiring temporary hemodialysis and her creatinine peaked at 4.8. She was last hemodialyzed on 09/07/2021. He with creatinine level was normalized. Patient was also requiring intubation and [facility] anical ventilator due to altered mental status and encephalopathy and also treated for hyponatremia. Patient was successfully extubated. While here she was at [facility] she developed new onset atrial fibrillation with RVR and was started on Cardizem patient was successfully cardioverted. Patient is maintaining sinus rhythm. Patient was also started on Eliquis and also treated for NSTEMI. 2D echocardiogram during hospitalization showed left ventricular ejection fraction 60 to 65%. Steroids were later stopped by hematology. She has to be on Eliquis for 30 days and then anticoagulation needs to be discontinued. Patient was eventually transferred to inpatient rehab at [facility]. 09/20/2021 Patient is currently resting in the bed. Awake alert oriented x3. Breathing status is much better. Continue on duo nebs. No complaints of chest pain. No nausea vomiting abdominal pain or diarrhea. Patient is being continued on antibiotics for possible pneumonia Overnight T-max was 100.4. Currently afebrile. Laboratory showed WBC 3.74 hemoglobin 7.1 platelets 123 Sodium 141 potassium 4.0 chloride 110 bicarb is 20.4 BUN 20.5 and creatinine 0.8 and blood sugar is 1 4010 calcium 8.0 blood sugar is better controlled. Patient is tolerating oral diet. Chest x-ray showed persistent left basilar infiltrate and/or/effusion. Right lung is clear. 09/21/2021 Patient is seen and evaluated in follow-up this morning currently sitting up at the side of the bed extremely weak requiring 2 person assist to get up although ambulating with a walker and standby assistance. Patient continues to have some shortness of breath with exertion although maintained on 1 liter of 02 currently. Patient appears working to breathe. Patient hemoglobin was low this am and sent to [facility] with some hemolysis and a stat cbc has been reordered. Pulmonary and cardiology consulted. Chest xray ordered. Patient did receive a dose of IV lasix today. Labs pending repeat. Patient also continues with fevers and is maintained on IV abx and will consult infectious disease. 09/22/2021 Patient is seen today and was maintaining oxygen saturation of 100% on 4L and weaning as tolerated. Patient is noted to remove her oxygen often while sitting up in the chair. Patient is less dyspneic during conversation. Patient is currently afebrile and is maintained on IV antibiotic therapy in the form of cefepime with ID following. Pleural effusions noted and patient is diuresing with IV lasix. Kidney functions stable. Patient for possible thoracentesis with pulmonary if respiratory status declines. Patient continues to be anxious with episodes of shortness of breath. Encouraged incentive spirometer use and continued cough and deep breathing. Patient denies chest pain or palpitations. Cardiology following as well. 09/23/2021 Patient is seen this morning sitting up in the chair on 2 L via NC and denies worsening shortness of breath. Pulmonary following and CT surgery also consulted for concern of the pericardial effusion noted on echo with no plans for intervention at this time. cardiology following as well as hematology. Chest ultrasound ordered as patient continues with pleural effusion on the left and possible thoracentesis within the next 24 hours. continued on IV lasix for now and will repeat am labs. Patient is afebrile and denies chest pain or palpitations. Recommend to hold eliquis for now for thoracentesis. Patient also reports not having a bowel movement since admission and will add Senokot twice a day 09/24/2021 Patient is seen in follow-up this morning scheduled to undergo thoracentesis on the left status post chest ultrasound with pulmonary. Patient is currently being prepped for the thoracentesis and fluid culture and analysis will be sent. Patient's Eliquis has been on hold and will discuss with cardiology about resuming after thoracentesis. Patient is continued on IV cefepime and blood cultures have been negative. Cardiology following as well and recommend repeat echo in the morning as the echo showed an EF of 55-60% with a large circumferential pericardial effusion measuring approximately 2.5 cm with thrombus formation in the pericardial effusion with no diastolic collapse to suggest findings of cardiac tamponade. Patient is afebrile and denies worsening shortness of breath or any chest pain. Patient tolerating diet and did have a bowel movement last night. 09/25/2021 Patient is seen today and repeat echo with no evidence of tamponade. Patient is status post thoracentesis and reports to feeling shortness of breath improved. Patient is currently on room air occasionally using 2-3 liters. Patient is afebrile and is continued on IV cefepime. Awaiting cultures from the thoracentesis to determine if requiring discharge antibiotics. Encouraged increased activity as tolerated. Patient is weak. 09/26/2020 Patient is currently lying in bed. Awake alert but anxious and also moaning at times. Seems to be confused mildly. Otherwise patient is status post left thoracentesis with 1.7 L fluid removal. Likely transudative. Cultures are pending. Patient otherwise remains on IV Lasix 40 mg every 12 hours. Also on antibiotics in the form of IV cefepime. Encouraged with incentive spirometry. Laboratory pressure WBC 5.4 hemoglobin 8.0 and platelets 264 Sodium 137 potassium 3.9 chloride 106 bicarb is 28 BUN 26 and creatinine 0.78 Pulmonary and ID is on board. 09/27/2021 Patient is more awake and oriented today. Breathing status is better. On room air now. No complaints of chest pain or worsening shortness breath. No fever no chills. No cough or sputum production. Patient is being current on IV Lasix 40 mg every 12 and is also on duo nebs and increase with incentive spirometry. Patient is also on antibiotics Rocephin. Eliquis was restarted today. Patient is complaining of leg swelling right lower extremity seems to be more than left. Venous duplex scan was ordered showed no evidence of DVT. 09/28/2021 Patient is up sitting in the chair awake, alert and oriented 3 with spouse at the bedside. Patient continues to be on room air with pulmonary following closely. IV Lasix has been transitioned oral and patient is maintained on empiric and a biotics in the form of cefepime. Awaiting for finalized cultures from thoracentesis. Cardiology following as well and patient has been resumed on anticoagulation. No active bleeding noted. Chest x-ray showing left lower lobe infiltrate correlate for atelectasis or pneumonia with a small underlying pleural effusion that may be room presented. Patient does have incentive spirometer and encourage the patient to continue using at least 10 times every hour while awake. INOCENCIA globin is stable at 7.7 and white blood count remains negative at 5.66. RF factor is 64 and pro-calcitonin 0.10. Patient denies worsening shortness of breath or any chest pain or palpitations. Patient tolerating diet. Patient is weak and has been working with physical therapy and would like to go home on discharge. Encouraged increased activity as tolerated and continued incentive spirometer use. 09/29/2021 Patient is seen in follow-up this morning with multiple medical consultations following. Patient has been cleared by pulmonary and cardiology for outpatient follow-up and currently awaiting cultures from the thoracentesis. Infectious disease is following and patient is maintained on cefepime and will need to discuss further with ID about discharge planning. Patient has been transitioned oral Lasix anticoagulation has been resumed. Recommend replacing a loculated per protocol as potassium was found to be 3.1 today. Creatinine within normal limits at 0.77 and sodium is 138. Hemoglobin is stable at 8.6. Patient is afebrile denies worsening shortness of breath or chest pain. Case management also following and arranging for discharge planning as patient will be going home and needing supplies for the home. Review of systems: Constitutional: no reports of fatigue, no reports of fever, or chills Cardiovascular: No reports of chest pain or palpitations Respiratory: no reports of worsening shortness of breath and reports feeling improved, no reports of cough GI: No reports of nausea, vomiting, or diarrhea : No reports of dysuria or retention Neurovascular: reports of generalized weakness All medications have been reviewed Active Medications Acetaminophen (Acetaminophen Tab 325 Mg Tab) 650 mg PO Q6HR PRN PRN Reason: Fever and/ or MILD Pain Last Admin: 09/29/21 14:59 Dose: 650 mg Hydrocodone Bitart/Acetaminophen (Hydrocodone/Apap 5-325mg 1 Each Tab) 1 each PO Q6HR PRN PRN Reason: Moderate Pain Last Admin: 09/29/21 10:04 Dose: 1 each Albuterol/Ipratropium (Ipratropium-Albuterol 3 Ml Neb) 3 ml INHALATION RT-QID PRN PRN Reason: Shortness Of Breath Or Wheezing Last Admin: 09/29/21 11:23 Dose: 3 ml Apixaban (Apixaban 5 Mg Tab) 5 mg PO BID [facility]; Protocol Last Admin: 09/29/21 09:57 Dose: 5 mg Cyanocobalamin (Cyanocobalamin 500 Mcg Tab) 1,000 mcg PO DAILY JAQUELINE Last Admin: 09/29/21 09:56 Dose: 1,000 mcg Furosemide (Furosemide 40 Mg Tab) 40 mg PO BID@0900,1600 JAQUELINE Last Admin: 09/29/21 09:56 Dose: 40 mg Sodium Chloride (Saline 0.9%) 1,000 mls @ 20 mls/hr IV .Q24H JAQUELINE Last Admin: 09/29/21 08:37 Dose: Not Given Cefepime HCl 2 gm/ Sodium (Chloride) 100 mls @ 25 mls/hr IVPB Q8HR JAQUELINE; Protocol Last Admin: 09/29/21 09:56 Dose: 25 mls/hr Potassium Chloride 10 meq/ IV (Solution) 100 mls @ 100 mls/hr IVPB Q1HR JAQUELINE; Protocol Stop: 09/29/21 18:59 Last Admin: 09/29/21 15:00 Dose: 100 mls/hr Insulin Aspart (Insulin Aspart (Novolog) 100 Unit/Ml Vial) 0 unit SQ ACHS [facility]; Protocol Last Admin: 09/29/21 12:00 Dose: 2 unit Metoprolol Tartrate (Metoprolol Tartrate 25 Mg Tab) 25 mg PO BID [facility] Last Admin: 09/29/21 09:56 Dose: 25 mg Miscellaneous Information (Pneumonia Protocol Utilized 1 Each Mis) 1 each PO ONCE PRN PRN Reason: Per Protocol Miscellaneous Information (Magnesium Replacement Protocol 1 Each [facility]) 1 each MISCELLANE DAILY PRN; Protocol PRN Reason: Per Protocol Ondansetron HCl (Ondansetron 4 Mg/2 Ml Vial) 4 mg IVP Q6HR PRN PRN Reason: Nausea And Vomiting Last Admin: 09/25/21 02:59 Dose: 4 mg Pantoprazole Sodium (Pantoprazole 40 Mg Tablet) 40 mg PO AC-[id number] [facility] Last Admin: 09/29/21 09:57 Dose: 40 mg Senna (Sennosides 8.6 Mg Tab) 8.6 mg PO BID PRN PRN Reason: Constipation Trazodone HCl (Trazodone Hcl 100 Mg Tab) 100 mg PO HS [facility] Last Admin: 09/28/21 20:51 Dose: 100 mg Physical exam: Patient is sitting up in the chair, no acute distress, awake alert and oriented.. HEENT: Normocephalic. Neck is supple. Pupils reactive. Nostrils clear. Oral cavity is moist. Neck reveals no JVD, carotid bruits, or thyromegaly. CHEST EXAMINATION: Trachea is central. Symmetrical expansion. diminished sounds bilaterally and minimal basilar crackles. No wheezing. CARDIAC: Normal S1, S2 with no gallops. No murmurs ABDOMEN: Soft. Bowel sounds present. Nontender. No organomegaly. No abdominal bruits. Extremities: Bilateral trace edema. No clubbing or cyanosis Neurologically awake, alert, oriented x3 with well-coordinated movements. diffuse weakness noted Skin: No rash or skin lesions. Psychiatric: Cooperative. Non-suicidal Musculoskeletal: No joint swelling or deformity. Normal range of motion. Assessment: Large left pleural effusion status post thoracentesis with approximately 1.7 L removed Recent admission with CARLOS requiring HD, A fib, NSTEMI , possible thrombocytopenia/TTP and was transferred to [facility] on 08/27/2021 Acute COPD exacerbation. Large circumferential pericardial effusion measuring approximately 2.5 cm with thrombus formation in the pericardial effusion with no diastolic collapse to suggest findings of cardiac tamponade Normocytic anemia with thrombocytopenia Hypertension Hyperlipidemia GERD Diabetes type 2 [id number], uncontrolled with hypoglycemia Diabetic peripheral neuropathy bilateral Obstructive sleep apnea not using any CPAP at home currently Borderline aneurysm of the ascending aorta Anxiety/depression Prior history of smoking DVT prophylaxis GI prophylaxis Full code Plan: Patient is currently maintained on IV antibiotics in the form of cefepime while awaiting thoracentesis cultures. Blood cultures have been negative. Infectious disease is following and will discuss with Dr. Mehta about discharge planning. Cardiology following as well and most recent EF showing 55-60% and there is some pericardial effusion with thrombus with no sign of tamponade commending outpatient follow-up Patient is status post thoracentesis on the left at approximately 1.2 L removed and pending analysis and culture Lasix has been transitioned to oral Eliquis has been resumed Recommend continue monitoring Accu-Cheks before meals and at bedtime a sliding scale PT/OT following and working with the patient, encourage the patient to increase activity as tolerated, case management following and arranging for discharge planning and necessary equipment in the home as patient will be going home on discharge Recommend to continue using incentive spirometer at least 10 times every hour while awake. Due to multiple complex medical issues, prognosis is guarded Possible discharge in 24 hours The impression and plan of care has been dictated by Taina Yuen, Nurse Practitioner as directed. Dr. Yesica MD I have performed a history and examination and MDM of this patient, discussed the same with the dictator, and agree with the dictator's assessment and plan as written ,documented as a scribe. Based on total visit time, I have performed more than 50% of the visit. Objective - Vital Signs Vital signs: Vital Signs Temp 98.7 F 09/29/21 08:00 Pulse 93 09/29/21 08:00 Resp 17 09/29/21 08:00 BP 114/70 09/29/21 08:00 Pulse Ox 93 L 09/29/21 08:00 FiO2 21 09/26/21 15:06 Intake & Output 09/28/21 09/29/21 09/29/21 18:59 06:59 18:59 Output Total 1300 400 Balance -1300 -400 Output: Urine 1300 400 Other: Voiding Method External Catheter External Catheter - Labs CBC & Chem 7: 09/29/21 06:26 09/29/21 06:26 Labs: Abnormal Lab Results - Last 24 Hours (Table) 09/28/21 09/28/21 09/28/21 Range/Units 06:02 06:02 06:02 RBC (3.80-5.40) m/uL Hgb (11.4-16.0) gm/dL Hct (34.0-46.0) % RDW (11.5-15.5) % ESR 50 H (0-30) mm/Hr Potassium (3.5-5.1) mmol/L BUN (7-17) mg/dL BUN/Creatinine Ratio 27.67 H (12.00-20.00) Ratio Glucose 131 H (70-110) mg/dL POC Glucose (mg/dL) (70-110) mg/dL Calcium 8.4 L (8.7-10.3) mg/dL Iron (50-170) ug/dL Transferrin (204.0-354.0) mg/dL Ferritin (10.0-291.0) ng/mL C-Reactive Protein 2.60 H (0.00-0.80) mg/dL Vitamin B12 (200.0-944.0) pg/mL Procalcitonin 0.10 H (0.02-0.09) ng/mL Rheumatoid Factor 64 H (0-15) IU/mL 09/28/21 09/28/21 09/28/21 Range/Units 11:51 15:57 16:48 RBC (3.80-5.40) m/uL Hgb (11.4-16.0) gm/dL Hct (34.0-46.0) % RDW (11.5-15.5) % ESR (0-30) mm/Hr Potassium (3.5-5.1) mmol/L BUN (7-17) mg/dL BUN/Creatinine Ratio (12.00-20.00) Ratio Glucose (70-110) mg/dL POC Glucose (mg/dL) 170 H 216 H (70-110) mg/dL Calcium (8.7-10.3) mg/dL Iron 45 L (50-170) ug/dL Transferrin 192.0 L (204.0-354.0) mg/dL Ferritin 944.0 H (10.0-291.0) ng/mL C-Reactive Protein (0.00-0.80) mg/dL Vitamin B12 1443.0 H (200.0-944.0) pg/mL Procalcitonin (0.02-0.09) ng/mL Rheumatoid Factor (0-15) IU/mL 09/28/21 09/29/21 09/29/21 Range/Units 20:39 06:26 06:26 RBC 2.79 L (3.80-5.40) m/uL Hgb 8.6 L (11.4-16.0) gm/dL Hct 26.6 L (34.0-46.0) % RDW 15.6 H (11.5-15.5) % ESR (0-30) mm/Hr Potassium 3.1 L (3.5-5.1) mmol/L BUN 26 H (7-17) mg/dL BUN/Creatinine Ratio (12.00-20.00) Ratio Glucose 126 H (70-110) mg/dL POC Glucose (mg/dL) 246 H (70-110) mg/dL Calcium 7.9 L (8.7-10.3) mg/dL Iron (50-170) ug/dL Transferrin (204.0-354.0) mg/dL Ferritin (10.0-291.0) ng/mL C-Reactive Protein (0.00-0.80) mg/dL Vitamin B12 (200.0-944.0) pg/mL Procalcitonin (0.02-0.09) ng/mL Rheumatoid Factor (0-15) IU/mL 09/29/21 Range/Units 07:04 RBC (3.80-5.40) m/uL Hgb (11.4-16.0) gm/dL Hct (34.0-46.0) % RDW (11.5-15.5) % ESR (0-30) mm/Hr Potassium (3.5-5.1) mmol/L BUN (7-17) mg/dL BUN/Creatinine Ratio (12.00-20.00) Ratio Glucose (70-110) mg/dL POC Glucose (mg/dL) 146 H (70-110) mg/dL Calcium (8.7-10.3) mg/dL Iron (50-170) ug/dL Transferrin (204.0-354.0) mg/dL Ferritin (10.0-291.0) ng/mL C-Reactive Protein (0.00-0.80) mg/dL Vitamin B12 (200.0-944.0) pg/mL Procalcitonin (0.02-0.09) ng/mL Rheumatoid Factor (0-15) IU/mL Microbiology - Last 24 Hours (Table) 09/28/21 06:02 Blood Culture - Preliminary Blood No Growth after 24 hours 09/24/21 11:00 Anaerobic Culture - Final Pleural Fluid 09/24/21 11:00 Gram Stain - Final Pleural Fluid Body Fluid Culture - Final
[2021-09-29 16:33] LABS: Glucose,Whole Blood 264 mg/dL (70-110)
[2021-09-29] MEDS: traZODone HCL 100 MG TAB PO SCH (20:29)
[2021-09-29 21:12] LABS: Glucose,Whole Blood 302 mg/dL (70-110)
[2021-09-30] MEDS: CEFEPIME 2 GM in SODIUM CHLORIDE 0.9% 100 ML IVPB SCH ×2 (00:16→07:34)
[2021-09-30] MEDS: SODIUM CHLORIDE 0.9% 1,000 ML IV SCH (04:19)
[2021-09-30 07:11] LABS: Glucose,Whole Blood 193 mg/dL (70-110)
[2021-09-30 07:25] LABS: African American GFR (CKD) 78 (>60 ml/min/1.73 sqM); Anion Gap 1 mmol/L; Blood Urea Nitrogen 26 mg/dL (7-17); Calcium 7.7 mg/dL (8.4-10.2); Carbon Dioxide 32 mmol/L (22-30); Chloride 105 mmol/L (98-107); Glucose 185 mg/dL (74-99); Non-African American GFR(CKD) 67 (>60 ml/min/1.73 sqM); Potassium 3.8 mmol/L (3.5-5.1); Sodium 138 mmol/L (137-145)
[2021-09-30] MEDS: PANTOPRAZOLE 40 MG TABLET PO SCH (07:33)
[2021-09-30] MEDS: METOPROLOL TARTRATE 25 MG TAB PO SCH (07:33)
[2021-09-30] MEDS: APIXABAN 5 MG TAB PO SCH (07:33)
[2021-09-30] MEDS: FUROSEMIDE 40 MG TAB PO SCH ×2 (07:34→16:55)
[2021-09-30] MEDS: INSULIN ASPART (NovoLOG) 100 UNIT/ML VIAL SQ SCH ×3 (07:34→16:55)
[2021-09-30] MEDS: CYANOCOBALAMIN 500 MCG TAB PO SCH (07:34)
[2021-09-30 07:56] VITALS: RESP 18
[2021-09-30] MEDS: IPRATROPIUM-ALBUTEROL 3 ML NEB INHALATION PRN ×2 (08:52→12:23)
[2021-09-30 11:29] LABS: Glucose,Whole Blood 191 mg/dL (70-110)
--- NOTE | 2021-09-30 13:26 | P.PN ---
Subjective Progress Note Date: 09/30/21 Principal diagnosis: Shortness of breath The patient is a 66-year-old white female with multiple medical problems. She was recently seen in consult when admitted on 08/25/21, with acute kidney injury, anemia, and low platelets in the 20,000 range. The patient had low haptoglobin and elevated LDH. Pathologist review mentioned scattered RBC fragments. The patient was transferred to [facility] for plasmapheresis for presumed TTP. Her ADAMTS 13 however came back in the normal range. The patient was discharged home from [facility], and readmitted because of shortness of breath starting overnight. She was found to have left lower lobe infiltrate with associated small effusion. The patient denies having any chest pain. The patient denies having any cough sputum production chest tightness or wheezing. No fever or chills. Note that the patient was released from [facility] while being on anticoagulation with Eliquis. The white cell count of 5.5 with hemoglobin of 7.9 and platelet count of 182. As such, the hematologic profile is essentially improved. Creatinine is at 0.8 with a BUN of 18 and the sodium level of 138. Pro-calcitonin level is at 0.08. She has chronic edema lower extremities bilaterally. Previous echocardiogram that showed a preserved LV function. Previous Doppler of the lower extremities have shown no evidence of any DVTs. Previous CT scan of the chest has shown a borderline aneurysm of the ascending aorta. Lungs are essentially clear. The patient has been started on antibiotics empirically and the patient is currently on IV Rocephin and vancomycin. On 09/22/2021 patient seen in follow-up on medical surgical floor. Patient states she continues to have exertional dyspnea, she is currently on 4 L of oxygen satting 97%. Afebrile, hemodynamics are stable, and a complete chest discomfort, lung sounds reveal diminished breath sounds at the bases, her chest x-ray on admission showed left pleural effusion and left lower lobe infiltrate, cardiomegaly. Follow-up chest x-ray showed persistent left basilar infiltrate and left pleural effusion, the right lung was clear. ProBNP level was 993, single set of troponin was negative. Patient was tested for COVID-19 and was negative, progesterone level is negative at 0.08. CTA chest showed no evidence of central pulmonary embolism, and moderate pericardial effusion. Patient has been started on IV diuretics at 20 mg of Lasix twice daily. She is diuresing, although today's weight is not recorded. Today's labs have been reviewed, white blood cell count is 5.5, hemoglobin is 7.9, sodium is 139, potassium is 4.3, chloride is 111, B1 is 20, creatinine 0.92. Urine Legionella antigen was negative. Echocardiogram has been ordered and pending at this time. 09/23/2021 patient is seen in follow-up on medical surgical floor. Patient states she continues to be short of breath, most of time with exertion, however she's had episodes of sudden shortness of breath without exertion just sitting in the chair. Denies any chest discomfort, no cough, no phlegm production. No hemoptysis. Patient has been subjected to diuretics, she remains on Lasix 40 mg IV push twice daily, and she is maintaining negative fluid balance of 2450 ML over last 24 hours, today's labs have been reviewed. BMP showed sodium of 137, potassium is 4.0, chloride is 110, BUN is 23 creatinine 0.91. Pro-calcitonin level has been low at 0.08, and follow-up pro-calcitonin was 0.14, still not significantly elevated. Patient remains on cefepime, vancomycin has been discon tinued, ID service is following. Blood cultures have shown no growth. Patient has had no fever or chills. Patient remains on Eliquis for history of atrial flutter. Follow-up chest x-ray today showing left lower lobe infiltrate, atelectasis and left pleural effusion unchanged compared to yesterday's exam. Echocardiogram has been reviewed showing preserved LV function with EF of 55- 60%, and he did not a large circumferential pericardial effusion measuring 2.5 cm with thrombus formation in the pericardial effusion. There was no diastolic collapse or findings of cardiac tamponade. Yesterday's hemoglobin is 7.9, platelet count is 214, renal profile was unremarkable, electrolytes were unrem arkable. Suspect possibility of left hemothorax, we will obtain ultrasound of the chest for possibility of diagnostic and therapeutic thoracentesis. On 09/24/2021 patient seen in follow-up on medical surgical floor. Yesterday's ultrasound of the chest showed left pleural effusion of 10.8 cm. Across was placed on hold, patient remains on empiric antibiotics at this point, vancomycin has been discontinued cefepime continues. Pro-calcitonin level has been low. Patient has been afebrile, no cough, no phlegm production, no chest congestion. The plan is to proceed with therapy and diagnostic left-sided thoracentesis today. This was done at the bedside with Dr. Drew, and 1.25 liters of dark thin pleural fluid was removed, nonbloody, and this was sent for analysis, cytology of cultures. Patient continues on diuretics with Lasix 40 mg twice a day, he is in -2.3 L net fluid balance, lower extremity edema is improving. Patient is in sinus mechanism hemodynamically stable. On 09/28/2021 patient seen in follow-up on medical surgical floor. She is awake and alert, in no acute distress, sitting up in a chair, breathing comfortably, on room air pulse ox is 95%, vital signs have been stable, he did have a low- grade fever yesterday with a T-max of 100.2F, and a low-grade temperature this a.m. Denies any worsening dyspnea, denies any chest discomfort. She states overall her breathing has improved. She undergoes left-sided thoracentesis would removal 1.2 L of pleural fluid. Follow-up chest x-ray today showing left lower lobe infiltrate, or atelectasis. There is a small underlying pleural effusion. Patient remains on cefepime for empiric coverage, 3 sets of pro-calcitonin have been negative thus far, patient continues on oral Lasix at 40 mg twice daily. She is in negative fluid balance, lower extremity edema is improved On 09/29/2021 patient seen in follow-up on medical surgical floor. She is resting in the recliner, she has been tolerating ambulation, her lower extremity edema is improving, patient is breathing comfortably although still has exertional dyspnea. Overall improved, room air pulse ox is 93%, vital signs have been stable. Remains on oral diuretics with Lasix 40 mg twice daily, remains on empiric antibiotics, serum pro-calcitonin level has been low, total fluid cultures have been negative. She denies any worsening dyspnea or cough, no complaints of chest discomfort, today's labs have been reviewed with the tocometer 5.2, hemoglobin is 8.6, sodium is 138, potassium 3.1, the rest of the electrolytes and renal profile were unremarkable. On 09/30/2021 patient seen in follow-up on medical surgical floor. She is resting comfortably in the recliner, breathing comfortably, she's had no acute events overnight, no complaint of chest discomfort, no coughing or wheezing. She remains on oral diuretics with Lasix 40 mg twice daily, she status post left-sided thoracentesis would removal of 1.2 L of pleural fluid with negative cytology and cultures. Pleural fluid was transudative, related to acute CHF. Today's labs have been reviewed showing sodium of 138, potassium is 3.8, chloride is 105, CO2 is 32, BUN is 26, creatinine 0.89. Follow-up serum pro- calcitonin level remain negative at 0.10, antibiotics have been completed Objective - Vital Signs Vital signs: Vital Signs Temp 99.2 F 09/30/21 07:56 Pulse 76 09/30/21 12:31 Resp 18 09/30/21 07:56 BP 107/70 09/30/21 07:56 Pulse Ox 95 09/30/21 07:56 FiO2 21 09/26/21 15:06 Intake & Output 09/29/21 09/30/21 09/30/21 18:59 06:59 18:59 Output Total 650 650 Balance -650 -650 Output: Urine 650 650 Other: Voiding Method External Catheter External Catheter - Exam GENERAL EXAM: Alert, very pleasant, 66 y.o. on room air with a pulse ox of 95 comfortable in no apparent distress. HEAD: Normocephalic/atraumatic. EYES: Normal reaction of pupils, equal size. Conjunctiva pink, sclera white. NOSE: Clear with pink turbinates. THROAT: No erythema or exudates. NECK: No masses, no JVD, no thyroid enlargement, no adenopathy. CHEST: No chest wall deformity. Symmetrical expansion. LUNGS: Equal air entry with no crackles, wheeze, rhonchi or dullness. CVS: Regular rate and rhythm, normal S1 and S2, no gallops, no murmurs, no rubs ABDOMEN: Soft, nontender. No hepatosplenomegaly, normal bowel sounds, no guarding or rigidity. EXTREMITIES: No clubbing, no edema, no cyanosis, 2+ pulses and upper and lower extremities. MUSCULOSKELETAL: Muscle strength and tone normal. SPINE: No scoliosis or deformity SKIN: No rashes CENTRAL NERVOUS SYSTEM: Alert and oriented -3. No focal deficits, tone is normal in all 4 extremities. PSYCHIATRIC: Alert and oriented -3. Appropriate affect. Intact judgment and insight. - Labs CBC & Chem 7: 09/29/21 06:26 09/30/21 06:45 Labs: Abnormal Lab Results - Last 24 Hours (Table) 09/29/21 09/29/21 09/30/21 Range/Units 16:31 21:08 06:45 Carbon Dioxide 32 H (22-30) mmol/L BUN 26 H (7-17) mg/dL Glucose 185 H (74-99) mg/dL POC Glucose (mg/dL) 264 H 302 H (70-110) mg/dL Calcium 7.7 L (8.4-10.2) mg/dL 09/30/21 09/30/21 Range/Units 07:10 11:28 Carbon Dioxide (22-30) mmol/L BUN (7-17) mg/dL Glucose (74-99) mg/dL POC Glucose (mg/dL) 193 H 191 H (70-110) mg/dL Calcium (8.4-10.2) mg/dL Microbiology - Last 24 Hours (Table) 09/28/21 06:02 Blood Culture - Preliminary Blood No Growth after 48 hours Assessment and Plan Plan: Assessment: Left sided pleural effusion, under investigation, post left-sided thoracentesis, and the fluid could possibly transudate, awaiting final cytology. Low protein, LDH is mildly elevated. Possibility of infection and pneumonia seems to be less likely nevertheless patient continues on empiric antibiotics with cefepime, pleural fluid cultures are still pending but Gram stain remain negative Large pericardial effusion with thrombus, of unknown etiology. Echocardiogram showed no evidence of cardiac tamponade. CT surgery has been consulted. Status post left-sided thoracentesis on 09/24/2021 with removal of 1.25 L of 10 dark pleural fluid, pleural fluid showed possibility of transudative fluid, cytology and cultures were negative for malignancy or infection Acute on chronic dyspnea, under investigation, improved and patient has responded well to diuretics Leg edema, chronic with episodic cellulitis involving lower extremity is bilaterally COPD, which appears to be stable Acute kidney injury, secondary to ATN/hypotension recovered Thrombocytopenia, recovered History of diabetes mellitus with diabetic neuropathy. History of sleep apnea syndrome, currently not on CPAP. History of gastroesophageal reflux disease. History of hypertension. History of hyperlipidemia. History of mild pancreatitis. History of arthritis. Prior history of Chinedu-en-Y bariatric surgery for obesity. Mild ascending aortic aneurysm Plan: Patient is breathing comfortably Vital signs are stable Maintaining stable O2 saturations above 95% on room air Pleural fluid analysis was consistent with transudative fluid related to acute CHF Continue oral diuretics Patient can be considered for discharge home from pulmonary perspective Outpatient follow-up with Dr. Drew in the office in 7-10 days I have personally seen and examined the patient, performed the documentation and the assessment and plan as written. Number of minutes spent on the visit: [10] Time with Patient: Less than 30
[2021-09-30 13:54] VITALS: BP 107/68; PULSE 86; TEMP 98.9
[2021-09-30 16:32] LABS: Glucose,Whole Blood 210 mg/dL (70-110)
[2021-09-30] MEDS ORDERED: CEFEPIME 2 GM in SODIUM CHLORIDE 0.9% 100 ML IVPB SCH (21:00)
--- NOTE | 2021-10-01 14:48 | P.DS ---
Providers Date of admission: 09/19/21 05:10 Expected date of discharge: 09/30/21 Attending physician: Shelby Linares Consults: 09/19/21 22:28 Consult Physician Routine Consulting Provider: Ethan Banuelos Consult Reason/Comments: Anemia and thrombocytopenia Do you want consulting provider notified?: Yes, Notify in am 09/21/21 09:46 Consult Physician Urgent Consulting Provider: Sher Drew Consult Reason/Comments: sob, pleural effusion, left infiltrate Do you want consulting provider notified?: Yes 09/21/21 13:39 Consult Physician Routine Consulting Provider: Serene Mehta Consult Reason/Comments: Fevers, possible pneumonia Do you want consulting provider notified?: Yes 09/23/21 11:47 Consult Physician Routine Consulting Provider: Genna Bacon Consult Reason/Comments: pericardial effusion with clots Do you want consulting provider notified?: Yes Primary care physician: Mamadou Gerard [facility] Course: Final diagnosis Large left pleural effusion status post thoracentesis with approximately 1.7 L removed Recent admission with [facility] requiring HD, A fib, NSTEMI , possible thrombocytopenia/TTP and was transferred to [facility] on 08/27/2021 Acute COPD exacerbation. Large circumferential pericardial effusion measuring approximately 2.5 cm with thrombus formation in the pericardial effusion with no diastolic collapse to suggest findings of cardiac tamponade Normocytic anemia with thrombocytopenia Hypertension Hyperlipidemia GERD Diabetes type 2 [id number]-[id number]-[id number], uncontrolled with hypoglycemia Diabetic peripheral neuropathy bilateral Obstructive sleep apnea not using any CPAP at home currently Borderline aneurysm of the ascending aorta Anxiety/depression Prior history of smoking DVT prophylaxis GI prophylaxis Full code Discharge disposition Patient is being discharged in a stable condition with guarded prognosis to home with home care. Patient will follow-up with Dr. Gerard in the outpatient setting upon discharge. Patient is to also follow-up with cardiology and pulmonary as scheduled. Total time taken is greater than 35 minutes. Hospital course This is a 66-year-old male who was recently admitted with increasing shortness of breath with cough and being closely monitored. She was being followed by multiple medical consultations including pulmonary, infectious disease, cardiology. Patient had extensive workup including thoracentesis on the left and cultures have been negative. Patient also maintained on IV diuresis and tolerated well and will continue on oral Lasix. Patient was continued on IV antibiotic therapy empirically for possible pneumonia and blood cultures along with sputum cultures have been negative. Patient continues with weakness and physical therapy recommending subacute rehab although patient is refusing and would like to go home with home care. Patient will require close outpatient follow-up and this was discussed at length with the patient. Patient also with some elevated blood sugars and will initiate metformin twice daily and encourage the patient to follow-up with primary care provider this week to discuss treatment plans and hospitalization. Encourage the patient to continue elevating lower extremities while at rest and may use Jus wraps or compression stockings and is maintained on low-dose Lasix and recommend outpatient follow-up labs in the next few days. Currently no reports of chest pain, shortness of breath, or palpitations. Patient is afebrile. No reports of nausea or vomiting and patient is tolerating diet. Patient will be discharged home today. E xtremely guarded prognosis. Physical exam: Gen: This is a 66-year-old female awake, alert and oriented 3, well-developed, well-nourished HEENT: Head is atraumatic, normocephalic. Pupils equal, round. Sclerae is anicteric. NECK: Supple. No JVD. No lymphadenopathy. No thyromegaly. LUNGS: Clear to auscultation. No wheezes or rhonchi. No intercostal retractions. HEART: Regular rate and rhythm. No murmur. ABDOMEN: Soft. Bowel sounds are present. No masses. No tenderness. EXTREMITIES: Trace pedal edema. No calf tenderness. Bilateral lower extremity edema NEUROLOGICAL: Patient is awake, alert and oriented x3. Cranial nerves 2 through 12 are grossly intact. Please refer to medication reconciliation sheet for a list of medications. The impression and plan of care has been dictated by Taina Yuen, Nurse Practitioner as directed. Dr. Yesica MD I have performed a history and examination and MDM of this patient, discussed the same with the dictator, and agree with the dictator's assessment and plan as written ,documented as a scribe. Based on total visit time, I have performed more than 50% of the visit. Patient Condition at Discharge: Good Plan - Discharge Summary Discharge Rx Participant: Yes New Discharge Prescriptions: New Furosemide [Lasix] 40 mg PO BID@0900,1600 30 Days #60 tab Metoprolol Tartrate [Lopressor] 25 mg PO BID 30 Days #60 tab metFORMIN HCL 500 mg PO BID 30 Days #60 tablet HYDROcodone/APAP 5-325MG [Keller 5-325] 1 each PO Q6HR PRN #6 tab PRN Reason: Moderate Pain Sennosides [Senokot] 8.6 mg PO BID PRN tab PRN Reason: Constipation Acetaminophen Tab [Tylenol] 650 mg PO Q6HR PRN #30 tab PRN Reason: Fever and/ or MILD Pain Ondansetron Odt [Zofran Odt] 4 mg PO Q8HR PRN #20 tab PRN Reason: Nausea Continue traZODone HCL [Desyrel] 100 mg PO HS Tiotropium 2.5 Mcg/Puff [Spiriva Respimat 2.5 Mcg] 2 puff INHALATION RT-DAILY Pantoprazole Sodium [Protonix] 40 mg PO DAILY Apixaban [Eliquis] 5 mg PO BID Albuterol Sulfate [Albuterol Sulfate Hfa] 2 puff PO RT-Q6H PRN PRN Reason: Shortness Of Breath Discontinued cefUROXime axetiL [Ceftin] 500 mg PO BID Discharge Medication List traZODone HCL [Desyrel] 100 mg PO HS 01/17/19 [History] Tiotropium 2.5 Mcg/Puff [Spiriva Respimat 2.5 Mcg] 2 puff INHALATION RT-DAILY 08/25/21 [History] Albuterol Sulfate [Albuterol Sulfate Hfa] 2 puff PO RT-Q6H PRN 09/19/21 [Hist ory] Apixaban [Eliquis] 5 mg PO BID 09/19/21 [History] Pantoprazole Sodium [Protonix] 40 mg PO DAILY 09/19/21 [History] Acetaminophen Tab [Tylenol] 650 mg PO Q6HR PRN #30 tab 09/30/21 [Rx] Furosemide [Lasix] 40 mg PO BID@0900,1600 30 Days #60 tab 09/30/21 [Rx] HYDROcodone/APAP 5-325MG [Keller 5-325] 1 each PO Q6HR PRN #6 tab 09/30/21 [Rx] Metoprolol Tartrate [Lopressor] 25 mg PO BID 30 Days #60 tab 09/30/21 [Rx] Ondansetron Odt [Zofran Odt] 4 mg PO Q8HR PRN #20 tab 09/30/21 [Rx] Sennosides [Senokot] 8.6 mg PO BID PRN tab 09/30/21 [Rx] metFORMIN HCL 500 mg PO BID 30 Days #60 tablet 09/30/21 [Rx] Follow up Appointment(s)/Referral(s): [facility] [[facility] - As Needed Axel Aguilar MD [STAFF PHYSICIAN] - 1 Week [facility] [NON-STAFF] - As Needed (Please call [facility] if you have questions about your new medical equipment. ) Mamadou Gerard DO [Primary Care Provider] - 1-2 days Sher Drew MD [STAFF PHYSICIAN] - 10/22/21 9:45 am Activity/Diet/Wound Care/Special Instructions: *Set up wheelchair van at discharge (patient to be billed) - [phone] - [address] [place] [address]. Activity Limited until follow-up Follow-up with cardiology Follow-up with primary care provider on discharge Follow-up with pulmonary Continue taking medications as prescribed Take a multivitamin daily Continue consistent carbohydrate diet, diabetic diet Discuss with your primary care provider about blood sugars and recommend monitoring blood sugars and keeping a diary of blood sugar readings at least once daily and bring to primary care appointment Discharge/Stand Alone Forms: Community Resources, Help In The Home Discharge Disposition: HOME WITH HOME HEALTH SERVICES
--- NOTE | 2021-10-01 17:50 | CDI ---
Documentation Clarification Form Date: 10/01/2021 05:26:12 PM From: Ashley Chacon Phone: Admit Date: 09/19/2021 05:10:00 AM Patient Name: Samantha Priest Visit Number: [id number] Discharge Date: 09/30/2021 05:14:00 PM ATTENTION: The Clinical Documentation Specialists (CDI) and [facility] Coding Staff appreciate your assistance in clarifying documentation. Please respond to the clarification below the line at the bottom and electronically sign. The CDI & [facility] Coding staff will review the response and follow-up if needed. Please note: Queries are made part of the Legal Health Record. If you have any questions, please contact the author of this message via ITS. Dr. Shelby Linares Your patient has Acute on chronic respiratory failure per Dr. Bobby Case DO . Based on this information and the findings below, is there an additional diagnosis that is clinically appropriate for this patient? History/Risk Factors: 66F, Pleural effusion. Recently dc home from H pericardial effusion, PNA on abx. Leg edema chronic with episodic cellulitis lower ext bilaterally. AECOPD, ATN, hypotension, CHF, CKD, HTN Tobacco use: former Clinical Indicators: 09/23/2206:19 Vital signs: Temp 98.0 F; Pulse 33307:11; Resp 17; BP 109/77; Pulse Ox 94 L; FiO2 2120:28 Treatment: Pt underwent left sided thoracentesisyesterday with Pulmonary with 1.2L fluidremoved. Patient is feeling better, she states her breathing has significantly improved. Denies anychest painorpalpitations. She is maintained on IV Lasix. I/Os revealed 2150mL output over the past 24 hours. Eliquis is on hold afterthoracentesisper pulmonary. Is there an additional diagnosis that is clinically appropriate for this patient? [ ] Acute Hypoxic Respiratory Failure (pO2 <60 mm Hg or SpO2 <91% on room air) [ ] Acute Hypercapnic Respiratory Failure (pCO2 >50 and pH <7.35) [ ] Acute on Chronic Respiratory Failure [ ] Other Diagnosis, please specify [ ] Unable to determine (Template Last Revised: May 2020) not mine MTDD
--- NOTE | 2021-10-01 18:06 | CDI ---
Documentation Clarification Form Date: 10/01/2021 05:51:30 PM From: Ashley Chacon Phone: Admit Date: 09/19/2021 05:10:00 AM Patient Name: Samantha Priest Visit Number: [id number] Discharge Date: 09/30/2021 05:14:00 PM ATTENTION: The Clinical Documentation Specialists (CDI) and [facility] Coding Staff appreciate your assistance in clarifying documentation. Please respond to the clarification below the line at the bottom and electronically sign. The CDI & [facility] Coding staff will review the response and follow-up if needed. Please note: Queries are made part of the Legal Health Record. If you have any questions, please contact the author of this message via ITS. Dr. Shelby Linares Unspecified CKD is documented per Marquis Sales MD 09/27/21 Additional clarification regarding the stage of CKD is requested. History/Risk Factors: 66yo F, Large leftpleural effusionspthoracentesis,A fib,NSTEMI, COPD exacerbation PNA, pericardial effusion w thrombusformation, Normocytic anemiawiththrombocytopenia, HTN, HLD, GERD, DMII w +/- glucose, Robert peripheral neuropathy, ADRIANA, Borderlineaneurysm of the ascending aorta, Anxiety/depression, Hx of smoking Clinical Indicators: Blood Urea Nitrogen 20.5mg/dL (9.0-27.0) HBUN/Creat Ratio 25.63Ratio (12.00-20.00) Creatinine 0.8mg/dL (0.6-1.5) Non- GFR(CKD) 76.3 (60.0-200.0) GFR (CKD) 88.4 (60.0-200.0) Treatment: Recent admission withAKIrequiring HD Please clarify the stage of the CKD, if known: [ ] CKD Stage 1 (GFR > 90) [ ] CKD Stage 2 (GFR 60-89) [ ] CKD Stage 3 (GFR 30-59) [ ] CKD Stage 3a (GFR 45-59) [ ] CKD Stage 3b (GFR 30-44) [ ] CKD Stage 4 (GFR 15-29) [ ] CKD Stage 5 (GFR <15) [ ] ESRD [ ] Other, please specify [ ] Unable to determine (Template last revised: April 2020) Unable to determine MTDD
--- NOTE | 2021-10-01 18:20 | CDI ---
Documentation Clarification Form Date: 10/01/2021 06:07:17 PM From: Ashley Chacon Phone: Admit Date: 09/19/2021 05:10:00 AM Patient Name: Samantha Priest Visit Number: [id number] Discharge Date: 09/30/2021 05:14:00 PM ATTENTION: The Clinical Documentation Specialists (CDI) and [facility] Coding Staff appreciate your assistance in clarifying documentation. Please respond to the clarification below the line at the bottom and electronically sign. The CDI & [facility] Coding staff will review the response and follow-up if needed. Please note: Queries are made part of the Legal Health Record. If you have any questions, please contact the author of this message via ITS. Dr. Shelby Linares Your patient has the documented diagnosis of unspecified CHF Angelika Escalera MD 09/30/21. Additional information regarding the [type, acuity] of CHF is requested. History/Risk Factors: 66yo F, Large leftpleural effusionspthoracentesis,A fib,NSTEMI, COPD exacerbation PNA, pericardial effusion w thrombusformation, Normocytic anemiawiththrombocytopenia, HTN, HLD, GERD, DMII w +/- glucose, Robert peripheral neuropathy, ADRIANA, Borderlineaneurysm of the ascending aorta, Anxiety /depression, Hx of smoking Clinical Indicators: VS/Pulse OX: O2 Sat by Pulse 94 L Echocardiogram Results: Normal left ventricular ejection fraction 55-60% large circumferentialpericardial effusionmeasuring 2.5 cm withthrombus formationin thepericardial effusion. Nodiastoliccollapseor findings of cardiac tamponade. 09/22/21 Chest X Ray: FINDINGS:Heart is enlarged. Noheart failure. There is blunting left costophrenic angle. There are chest leads. IMPRESSION: There is leftpleural effusionandleft lower lobe infiltratewhich are new compared to old exam. Cardiomegaly. Noheart failureseen. Treatment: he remains on oral diuretics with Lasix 40 mg twice daily, shestatus post left-sidedthoracentesiswouldremovalof 1.2 L of pleural fluid with negative cytology and cultures. Pleural fluid was transudative, related to acute CHF. Today's labs have been reviewed showing sodium of 138, potassium is 3.8, chloride is 105, CO2 is 32, BUN is 26, creatinine 0.89.Follow-upserum pro- calcitonin level remain negative at 0.10, antibiotics have been completed In your professional opinion, can you please clarify the [acuity and type] of CHF if known? [ ] Acute Systolic Heart Failure (reduced EF) [ ] Chronic Systolic Heart Failure (reduced EF) [ ] Acute on Chronic Systolic Heart Failure (reduced EF) [ ] Acute Diastolic Heart Failure (preserved EF) [ ] Chronic Diastolic Heart Failure (preserved EF) [ ] Acute on Chronic Diastolic Heart Failure (preserved EF) [ ] Acute Systolic & Diastolic Heart Failure [ ] Chronic Systolic & Diastolic Heart Failure [ ] Acute on Chronic Heart Failure Systolic & Diastolic Heart Failure [ ] Other, please specify [ ] Unable to determine (Template Last Revised: April 2020) Unable to determine MTDD
--- NOTE | 2021-10-05 12:51 | CDI ---
Documentation Clarification Form Date: 10/05/2021 12:48:22 PM From: Ashley Chacon Admit Date: 09/19/2021 05:10:00 AM Patient Name: Samantha Priest Visit Number: [id number] Discharge Date: 09/30/2021 05:14:00 PM ATTENTION: The Clinical Documentation Specialists (CDI) and [facility] Coding Staff appreciate your assistance in clarifying documentation. Please respond to the clarification below the line at the bottom and electronically sign. The CDI & [facility] Coding staff will review the response and follow-up if needed. Please note: Queries are made part of the Legal Health Record. If you have any questions, please contact the author of this message via ITS. Dr. Malissa Robert Your patient has Acute on chronic respiratory failure per Dr. Bobby Case DO . Based on this information and the findings below, is there an additional diagnosis that is clinically appropriate for this patient? History/Risk Factors: 66F, Pleural effusion. Recently dc home from [facility] pericardial effusion, PNA on abx. Leg edema chronic with episodic cellulitis lower ext bilaterally. AECOPD, ATN, hypotension, CHF, CKD, HTN Tobacco use: former Clinical Indicators: 09/23/21 07:19 Vital signs: Temp 98.0 F ; Pulse 100 08:11; Resp 17 ; BP 109/77 ; Pulse Ox 94 L ; FiO2 21 20:28 Treatment: Pt underwent left sided thoracentesis yesterday with Pulmonary with 1.2L fluid removed. Patient is feeling better, she states her breathing has significantly improved. Denies any chest pain or palpitations. She is maintained on IV Lasix. I/Os revealed 2150mL output over the past 24 hours. Eliquis is on hold after thoracentesis per pulmonary. Is there an additional diagnosis that is clinically appropriate for this patient? [ ] Acute Hypoxic Respiratory Failure (pO2 <60 mm Hg or SpO2 <91% on room air) [ ] Acute Hypercapnic Respiratory Failure (pCO2 >50 and pH <7.35) [ ] Acute on Chronic Respiratory Failure [ x ] Other Diagnosis, please specify _No rep failure____ [ ] Unable to determine MTDD
--- NOTE | 2021-10-05 13:02 | CDI ---
Documentation Clarification Form Date: 10/05/2021 12:53:06 PM From: Ashley Chacon Admit Date: 09/19/2021 05:10:00 AM Patient Name: Samantha Priest Visit Number: [id number] Discharge Date: 09/30/2021 05:14:00 PM ATTENTION: The Clinical Documentation Specialists (CDI) and [facility] Coding Staff appreciate your assistance in clarifying documentation. Please respond to the clarification below the line at the bottom and electronically sign. The CDI & [facility] Coding staff will review the response and follow-up if needed. Please note: Queries are made part of the Legal Health Record. If you have any questions, please contact the author of this message via ITS. Dr. Malissa Robert Unspecified CKD is documented per Dr. Katz 09/27/21. Additional clarification regarding the stage of CKD is requested. History/Risk Factors: 66yo F, Large left pleural effusion sp thoracentesis, A fib, NSTEMI, COPD exacerbation PNA, pericardial effusion w thrombus formation, Normocytic anemia with thrombocytopenia, HTN, HLD, GERD, DMII w +/- glucose, Robert peripheral neuropathy, ADRIANA, Borderline aneurysm of the ascending aorta, Anxiety/depression, Hx of smoking Clinical Indicators: Blood Urea Nitrogen 20.5 mg/dL (9.0-27.0) HBUN/Creat Ratio 25.63 Ratio (12.00-20.00) Creatinine 0.8 mg/dL (0.6-1.5) Non- GFR (CKD) 76.3 (60.0-200.0) GFR (CKD) 88.4 (60.0-200.0) Treatment: Recent admission with [facility] requiring HD Please clarify the stage of the CKD, if known: [ ] CKD Stage 1 (GFR > 90) [ ] CKD Stage 2 (GFR 60-89) [ ] CKD Stage 3 (GFR 30-59) [ ] CKD Stage 3a (GFR 45-59) [ ] CKD Stage 3b (GFR 30-44) [ ] CKD Stage 4 (GFR 15-29) [ ] CKD Stage 5 (GFR <15) [ ] ESRD [ x] Other, please specify ___no ckd [ ] Unable to determine MTDD
--- NOTE | 2021-10-05 13:07 | CDI ---
Documentation Clarification Form Date: 10/05/2021 01:03:31 PM From: Ashley Chacon Admit Date: 09/19/2021 05:10:00 AM Patient Name: Samantha Priest Visit Number: [id number] Discharge Date: 09/30/2021 05:14:00 PM ATTENTION: The Clinical Documentation Specialists (CDI) and [facility] Coding Staff appreciate your assistance in clarifying documentation. Please respond to the clarification below the line at the bottom and electronically sign. The CDI & [facility] Coding staff will review the response and follow-up if needed. Please note: Queries are made part of the Legal Health Record. If you have any questions, please contact the author of this message via ITS. Dr. Malissa Robert Your patient has the documented diagnosis of unspecified CHF Angelika Escalera MD 09/30/21. Additional information regarding the [type, acuity] of CHF is requested. History/Risk Factors: 66yo F, Large left pleural effusion sp thoracentesis, A fib, NSTEMI, COPD exacerbation PNA, pericardial effusion w thrombus formation, Normocytic anemia with thrombocytopenia, HTN, HLD, GERD, DMII w +/- glucose, Robert peripheral neuropathy, ADRIANA, Borderline aneurysm of the ascending aorta, Anxiety/depression, Hx of smoking Clinical Indicators: VS/Pulse OX: O2 Sat by Pulse 94 L Echocardiogram Results: Normal left ventricular ejection fraction 55-60% large circumferential pericardial effusion measuring 2.5 cm with thrombus formation in the pericardial effusion. No diastolic collapse or findings of cardiac tamponade. 09/22/21 Chest X Ray: FINDINGS: Heart is enlarged. No heart failure. There is blunting left costophrenic angle. There are chest leads. IMPRESSION: There is left pleural effusion and left lower lobe infiltrate which are new compared to old exam. Cardiomegaly. No heart failure seen. Treatment: he remains on oral diuretics with Lasix 40 mg twice daily, she status post left-sided thoracentesis would removal of 1.2 L of pleural fluid with negative cytology and cultures. Pleural fluid was transudative, related to acute CHF. Today's labs have been reviewed showing sodium of 138, potassium is 3.8, chloride is 105, CO2 is 32, BUN is 26, creatinine 0.89.Follow-up serum pro- calcitonin level remain negative at 0.10, antibiotics have been completed In your professional opinion, can you please clarify the [acuity and type] of CHF if known? [ ] Acute Systolic Heart Failure (reduced EF) [ ] Chronic Systolic Heart Failure (reduced EF) [ ] Acute on Chronic Systolic Heart Failure (reduced EF) [ ] Acute Diastolic Heart Failure (preserved EF) [ ] Chronic Diastolic Heart Failure (preserved EF) [ ] Acute on Chronic Diastolic Heart Failure (preserved EF) [ ] Acute Systolic & Diastolic Heart Failure [ ] Chronic Systolic & Diastolic Heart Failure [ ] Acute on Chronic Heart Failure Systolic & Diastolic Heart Failure [ ] Other, please specify [ ] Unable to determine Was documented in my note that there is no heart failure and this query is not necessary MTDD
--- NOTE | 2021-10-07 22:59 | P.PN ---
Subjective Progress Note Date: 09/28/21 Principal diagnosis: Fever and possible pneumonia Patient is a 66-year-old patient female with recurrent admissions to the hospital and there was question of TTP and patient presented back to the hospital with increasing shortness of breath, and there is a question of pneumonia patient did have a fever and CT of the chest suggestive of pericardial effusion patient did have echocardiogram with evidence of large pericardial effusion and thrombus but no temponade. Patient is status post left-sided thoracocentesis completed on 09/24/2021 per pulmonary On today's evaluation that is 09/28/2021, the patient did have low-grade fever 100.2F yesterday afternoon is afebrile this morning, the patient is breathing comfortably on room air, the patient denies chest pain, the patient did have occasional cough and no sputum production denies abdominal pain no diarrhea, feeling better Objective - Vital Signs Vital signs: Vital Signs Temp 99.4 F 09/28/21 14:00 Pulse 95 09/28/21 16:07 Resp 17 09/28/21 14:00 BP 109/69 09/28/21 14:00 Pulse Ox 97 09/28/21 14:00 FiO2 21 09/26/21 15:06 Intake & Output 09/27/21 09/28/21 09/28/21 18:59 06:59 18:59 Output Total 400 1300 Balance -400 -1300 Output: Urine 400 1300 Other: Voiding Method External Catheter External Catheter - Exam GENERAL DESCRIPTION: An elderly female up in the chair RESPIRATORY SYSTEM: Unlabored breathing , decreased breath sounds at bases HEART: S1 S2 regular rate and rhythm , ABDOMEN: Soft , no tenderness EXTREMITIES: No edema feet - Labs CBC & Chem 7: 09/29/21 06:26 09/30/21 06:45 Labs: Abnormal Lab Results - Last 24 Hours (Table) 09/27/21 09/27/21 09/28/21 Range/Units 16:49 20:05 06:02 RBC (4.10-5.20) X 10*6/uL Hgb (12.0-15.0) g/dL Hct (37.2-46.3) % MCV (80.0-97.0) fL MCHC (32.0-37.0) g/dL RDW (11.5-14.5) % ESR (0-30) mm/Hr BUN/Creatinine Ratio (12.00-20.00) Ratio Glucose (70-110) mg/dL POC Glucose (mg/dL) 196 H 197 H (70-110) mg/dL Calcium (8.7-10.3) mg/dL C-Reactive Protein (0.00-0.80) mg/dL Procalcitonin 0.10 H (0.02-0.09) ng/mL Rheumatoid Factor (0-15) IU/mL 09/28/21 09/28/21 09/28/21 Range/Units 06:02 06:02 07:08 RBC 2.59 L (4.10-5.20) X 10*6/uL Hgb 7.7 L (12.0-15.0) g/dL Hct 25.2 L (37.2-46.3) % MCV 97.3 H (80.0-97.0) fL MCHC 30.6 L (32.0-37.0) g/dL RDW 15.7 H (11.5-14.5) % ESR 50 H (0-30) mm/Hr BUN/Creatinine Ratio 27.67 H (12.00-20.00) Ratio Glucose 131 H (70-110) mg/dL POC Glucose (mg/dL) 130 H (70-110) mg/dL Calcium 8.4 L (8.7-10.3) mg/dL C-Reactive Protein 2.60 H (0.00-0.80) mg/dL Procalcitonin (0.02-0.09) ng/mL Rheumatoid Factor 64 H (0-15) IU/mL 09/28/21 Range/Units 11:51 RBC (4.10-5.20) X 10*6/uL Hgb (12.0-15.0) g/dL Hct (37.2-46.3) % MCV (80.0-97.0) fL MCHC (32.0-37.0) g/dL RDW (11.5-14.5) % ESR (0-30) mm/Hr BUN/Creatinine Ratio (12.00-20.00) Ratio Glucose (70-110) mg/dL POC Glucose (mg/dL) 170 H (70-110) mg/dL Calcium (8.7-10.3) mg/dL C-Reactive Protein (0.00-0.80) mg/dL Procalcitonin (0.02-0.09) ng/mL Rheumatoid Factor (0-15) IU/mL Microbiology - Last 24 Hours (Table) 09/24/21 11:00 Gram Stain - Preliminary Pleural Fluid Body Fluid Culture - Preliminary Assessment and Plan (1) Fever Status: Acute Code(s): R50.9 - FEVER, UNSPECIFIED SNOMED Code(s): 241852323 Plan: 1patient presented to hospital with increasing shortness of breath and this patient [id number] have been suspicious for left-sided effusion and possible atelectasis underlying pneumonia not entirely excluded patient subsequently did have a CT angiogram of the chest did not mention any consultation however the patient did have large effusion confirmed on echocardiogram and mention the clot inside the effusion could be responsible for her symptomatology any fever. CT surgery is following the patient 2patient did have evidence of left-sided effusion and is status post thoracocentesis cultures are so far negative 3-patient did have a low-grade fever however her inflammatory markers are not significantly elevated and are trending down and chest x-ray done this morning shows some atelectasis, patient to continue with the cefepime Time with Patient: Less than 30
--- NOTE | 2021-10-07 23:01 | P.PN ---
Subjective Progress Note Date: 09/29/21 Principal diagnosis: Fever and possible pneumonia Patient is a 66-year-old patient female with recurrent admissions to the hospital and there was question of TTP and patient presented back to the hospital with increasing shortness of breath, and there is a question of pneumonia patient did have a fever and CT of the chest suggestive of pericardial effusion patient did have echocardiogram with evidence of large pericardial effusion and thrombus but no temponade. Patient is status post left-sided thoracocentesis completed on 09/24/2021 per pulmonary On today's evaluation that is 09/29/2021, the patient is afebrile this morning, the patient is breathing comfortably on room air, the patient denies chest pain, the patient did have occasional cough but denies any sputum production, the patient denies abdominal pain no diarrhea, Objective - Vital Signs Vital signs: Vital Signs Temp 98.7 F 09/29/21 08:00 Pulse 85 09/29/21 11:34 Resp 17 09/29/21 08:00 BP 114/70 09/29/21 08:00 Pulse Ox 93 L 09/29/21 08:00 FiO2 21 09/26/21 15:06 Intake & Output 09/28/21 09/29/21 09/29/21 18:59 06:59 18:59 Output Total 1300 1400 Balance -1300 -1400 Output: Urine 1300 1400 Other: Voiding Method External Catheter External Catheter - Exam GENERAL DESCRIPTION: An elderly female up in the chair RESPIRATORY SYSTEM: Unlabored breathing , decreased breath sounds at bases HEART: S1 S2 regular rate and rhythm , ABDOMEN: Soft , no tenderness EXTREMITIES: No edema feet - Labs CBC & Chem 7: 09/29/21 06:26 09/30/21 06:45 Labs: Abnormal Lab Results - Last 24 Hours (Table) 09/28/21 09/28/21 09/28/21 Range/Units 15:57 15:57 16:48 RBC (3.80-5.40) m/uL Hgb (11.4-16.0) gm/dL Hct (34.0-46.0) % RDW (11.5-15.5) % Potassium (3.5-5.1) mmol/L BUN (7-17) mg/dL Glucose (74-99) mg/dL POC Glucose (mg/dL) 216 H (70-110) mg/dL Calcium (8.4-10.2) mg/dL Iron 45 L (50-170) ug/dL Transferrin 192.0 L (204.0-354.0) mg/dL Ferritin 944.0 H (10.0-291.0) ng/mL Vitamin B12 1443.0 H (200.0-944.0) pg/mL RBC Folate 1,413 H (280 - 791) ng/mL 09/28/21 09/29/21 09/29/21 Range/Units 20:39 06:26 06:26 RBC 2.79 L (3.80-5.40) m/uL Hgb 8.6 L (11.4-16.0) gm/dL Hct 26.6 L (34.0-46.0) % RDW 15.6 H (11.5-15.5) % Potassium 3.1 L (3.5-5.1) mmol/L BUN 26 H (7-17) mg/dL Glucose 126 H (74-99) mg/dL POC Glucose (mg/dL) 246 H (70-110) mg/dL Calcium 7.9 L (8.4-10.2) mg/dL Iron (50-170) ug/dL Transferrin (204.0-354.0) mg/dL Ferritin (10.0-291.0) ng/mL Vitamin B12 (200.0-944.0) pg/mL RBC Folate (280 - 791) ng/mL 09/29/21 09/29/21 Range/Units 07:04 11:26 RBC (3.80-5.40) m/uL Hgb (11.4-16.0) gm/dL Hct (34.0-46.0) % RDW (11.5-15.5) % Potassium (3.5-5.1) mmol/L BUN (7-17) mg/dL Glucose (74-99) mg/dL POC Glucose (mg/dL) 146 H 184 H (70-110) mg/dL Calcium (8.4-10.2) mg/dL Iron (50-170) ug/dL Transferrin (204.0-354.0) mg/dL Ferritin (10.0-291.0) ng/mL Vitamin B12 (200.0-944.0) pg/mL RBC Folate (280 - 791) ng/mL Microbiology - Last 24 Hours (Table) 09/28/21 06:02 Blood Culture - Preliminary Blood No Growth after 24 hours 09/24/21 11:00 Anaerobic Culture - Final Pleural Fluid 09/24/21 11:00 Gram Stain - Final Pleural Fluid Body Fluid Culture - Final Assessment and Plan (1) Fever Status: Acute Code(s): R50.9 - FEVER, UNSPECIFIED SNOMED Code(s): 418049236 Plan: 1patient presented to hospital with increasing shortness of breath and this patient has [id number] x-rays have been suspicious for left-sided effusion and possible atelectasis underlying pneumonia not entirely excluded patient subsequently did have a CT angiogram of the chest did not mention any consultation however the patient did have large effusion confirmed on echocardiogram and mention the clot inside the effusion could be responsible for her symptomatology any fever. CT surgery is following the patient 2patient did have evidence of left-sided effusion and is status post thoracocentesis cultures are so far negative 3-patient did have a low-grade fever which has resolved and her inflammatory markers are not significantly elevated and are trending down and chest x-ray completed 09/28/2021 did shows some atelectasis, patient currently covered with the cefepime Time with Patient: Less than 30
--- NOTE | 2021-10-07 23:02 | P.PN ---
Subjective Progress Note Date: 09/30/21 Principal diagnosis: Fever and possible pneumonia Patient is a 66-year-old patient female with recurrent admissions to the hospital and there was question of TTP and patient presented back to the hospital with increasing shortness of breath, and there is a question of pneumonia patient did have a fever and CT of the chest suggestive of pericardial effusion patient did have echocardiogram with evidence of large pericardial effusion and thrombus but no temponade. Patient is status post left-sided thoracocentesis completed on 09/24/2021 per pulmonary On today's evaluation that is 09/30/2021, the patient remains to be afebrile for the last 48 hours, the patient is breathing comfortably on room air, the patient denies chest pain, the patient did have occasional cough but no sputum production, the patient denies abdominal pain no diarrhea, patient is feeling better and wants to go home Objective - Vital Signs Vital signs: Vital Signs Temp 99.2 F 09/30/21 07:56 Pulse 80 09/30/21 09:04 Resp 18 09/30/21 07:56 BP 107/70 09/30/21 07:56 Pulse Ox 95 09/30/21 07:56 FiO2 21 09/26/21 15:06 Intake & Output 09/29/21 09/30/21 09/30/21 18:59 06:59 18:59 Output Total 650 650 Balance -650 -650 Output: Urine 650 650 Other: Voiding Method External Catheter External Catheter - Exam GENERAL DESCRIPTION: An elderly female up in the chair RESPIRATORY SYSTEM: Unlabored breathing , decreased breath sounds at bases HEART: S1 S2 regular rate and rhythm , ABDOMEN: Soft , no tenderness EXTREMITIES: No edema feet - Labs CBC & Chem 7: 09/29/21 06:26 09/30/21 06:45 Labs: Abnormal Lab Results - Last 24 Hours (Table) 09/28/21 09/29/21 09/29/21 Range/Units 15:57 11:26 16:31 Carbon Dioxide (22-30) mmol/L BUN (7-17) mg/dL Glucose (74-99) mg/dL POC Glucose (mg/dL) 184 H 264 H (70-110) mg/dL Calcium (8.4-10.2) mg/dL RBC Folate 1,413 H (280 - 791) ng/mL 09/29/21 09/30/21 09/30/21 Range/Units 21:08 06:45 07:10 Carbon Dioxide 32 H (22-30) mmol/L BUN 26 H (7-17) mg/dL Glucose 185 H (74-99) mg/dL POC Glucose (mg/dL) 302 H 193 H (70-110) mg/dL Calcium 7.7 L (8.4-10.2) mg/dL RBC Folate (280 - 791) ng/mL Microbiology - Last 24 Hours (Table) 09/28/21 06:02 Blood Culture - Preliminary Blood No Growth after 48 hours Assessment and Plan (1) Fever Status: Acute Code(s): R50.9 - FEVER, UNSPECIFIED SNOMED Code(s): 415474624 Plan: 1patient presented to hospital with increasing shortness of breath and this patient has [id number] x-rays have been suspicious for left-sided effusion and possible atelectasis underlying pneumonia not entirely excluded patient subsequently did have a CT angiogram of the chest did not mention any consultation however the patient did have large effusion confirmed on echocardiogram and mention the clot inside the effusion could be responsible for her symptomatology any fever. CT surgery is following the patient 2patient did have evidence of left-sided effusion and is status post thoracocentesis cultures are so far negative 3-patient did have a low-grade fever which has resolved and her inflammatory markers are not significantly elevated and are trending down and chest x-ray completed 09/28/2021 did shows some atelectasis, patient has received adequate antibiotic therapy during this hospital stay of more than 10 days and with a negative culture recommend no antibiotic on discharge Time with Patient: Less than 30
== END 2021-09-30 17:14 | disposition home health service (06) | DRG 193 ==
LOC: EC 04:06 → 4SSUR 05:10
PROVIDERS: ADMIT Hospitalist; ATTEND Hospitalist
PROC: 0W9B3ZZ Drainage of Left Pleural Cavity, Percutaneous Approach (ICD-10-PCS; principal; 2021-09-24)
DX: J18.9 Pneumonia, unspecified organism (principal); I21.4 Non-ST elevation (NSTEMI) myocardial infarction; I31.3 Pericardial effusion (noninflammatory); J90 Pleural effusion, not elsewhere classified; I48.3 Typical atrial flutter; L03.116 Cellulitis of left lower limb; L03.115 Cellulitis of right lower limb; J44.0 Chronic obstructive pulmonary disease with (acute) lower respiratory infection; J44.1 Chronic obstructive pulmonary disease with (acute) exacerbation; J45.901 Unspecified asthma with (acute) exacerbation; J98.11 Atelectasis; D69.6 Thrombocytopenia, unspecified; E11.649 Type 2 diabetes mellitus with hypoglycemia without coma; D63.1 Anemia in chronic kidney disease; E11.22 Type 2 diabetes mellitus with diabetic chronic kidney disease; E11.42 Type 2 diabetes mellitus with diabetic polyneuropathy; I71.2 Thoracic aortic aneurysm, without rupture; I11.9 Hypertensive heart disease without heart failure; F32.A Depression, unspecified; E11.65 Type 2 diabetes mellitus with hyperglycemia; E66.01 Morbid (severe) obesity due to excess calories; I08.0 Rheumatic disorders of both mitral and aortic valves; Z68.34 Body mass index [BMI] 34.0-34.9, adult; I95.9 Hypotension, unspecified; M19.90 Unspecified osteoarthritis, unspecified site; F41.9 Anxiety disorder, unspecified; K21.9 Gastro-esophageal reflux disease without esophagitis; I48.91 Unspecified atrial fibrillation; R00.0 Tachycardia, unspecified; G47.33 Obstructive sleep apnea (adult) (pediatric); E78.5 Hyperlipidemia, unspecified; D75.89 Other specified diseases of blood and blood-forming organs; I25.10 Atherosclerotic heart disease of native coronary artery without angina pectoris; E53.8 Deficiency of other specified B group vitamins; M25.472 Effusion, left ankle; M25.471 Effusion, right ankle; Z96.653 Presence of artificial knee joint, bilateral; Z20.822 Contact with and (suspected) exposure to COVID-19; Z98.84 Bariatric surgery status; Z87.11 Personal history of peptic ulcer disease; Z87.19 Personal history of other diseases of the digestive system; Z79.01 Long term (current) use of anticoagulants; Z87.01 Personal history of pneumonia (recurrent); Z79.899 Other long term (current) drug therapy; Z79.84 Long term (current) use of oral hypoglycemic drugs; Z79.51 Long term (current) use of inhaled steroids; Z88.0 Allergy status to penicillin; Z91.048 Other nonmedicinal substance allergy status; Z90.49 Acquired absence of other specified parts of digestive tract; Z87.891 Personal history of nicotine dependence; Z98.61 Coronary angioplasty status; Z90.89 Acquired absence of other organs; Z98.890 Other specified postprocedural states; Z80.49 Family history of malignant neoplasm of other genital organs; Z82.49 Family history of ischemic heart disease and other diseases of the circulatory system; Z81.1 Family history of alcohol abuse and dependence; Z83.6 Family history of other diseases of the respiratory system
CPT/HCPCS: 36415; 71045; 71046; 71275; 76604; 80048; 80053; 80202; 82607; 82728; 82747; 82945; 83010; 83540; 83550; 83605; 83615; 83735; 83880; 84100; 84145; 84157; 84165; 84443; 84484; 85025; 85045; 85610; 85652; 85730; 86038; 86140; 86255; 86431; 86850; 86870; 86880; 86900; 86901; 86902; 86920; 87040; 87070; 87075; 87102; 87116; 87205; 87206; 87252; 87449; 87496; 87498; 87502; 87529; 87634; 87635; 87798; 88108; 88305; 89050; 93005; 93308; 94640; 94760; 96365; 99285

== ENCOUNTER → 2021-10-12 | Outpatient (CLI) | payer MEDICARE, OTHER ==
[2021-10-12 15:16] LABS: African American GFR (CKD) 88.4 (60.0-200.0); BUN/Creat Ratio 20.75 Ratio (12.00-20.00); Blood Urea Nitrogen 16.6 mg/dL (9.0-27.0); Calcium 9.1 mg/dL (8.7-10.3); Non-African American GFR(CKD) 76.3 (60.0-200.0); Potassium 3.6 mmol/L (3.5-5.5)
== END | disposition home or self-care (01) ==
LOC: LABWHC1 10:08
PROVIDERS: ATTEND Internal Medicine Interventional Cardiology
DX: N18.9 Chronic kidney disease, unspecified (principal)
CPT/HCPCS: 36415; 80048

== ENCOUNTER 2021-12-05 00:28 | Emergency (ER) | payer MEDICARE, OTHER ==
[2021-12-05 00:34] VITALS: TEMP 98.6
--- NOTE | 2021-12-05 01:01 | ED ---
SOB HPI - General Chief Complaint: Shortness of Breath Stated Complaint: SOB Time Seen by Provider: 12/05/21 00:53 Source: patient, family, RN notes reviewed Mode of arrival: wheelchair Limitations: no limitations - History of Present Illness Initial Comments: Patient is a 66-year-old female presents to the emergency room with complaints of waking up with shortness of breath and inability to catch her breath during the night earlier this evening. She states that she has had this happen once before and the and A. fib with RVR. She reports at rest at this time that she has no shortness of breath. She denies any chest pain, orthopnea, lower extremity edema, palpitations, diaphoresis, headache, abdominal pain, nausea, vomiting, lethargy, altered mental status, dizziness, fevers or chills. In addition to her past medical history of atrial fibrillation she has past medical history significant for COPD, hypertension, hyperlipidemia, diabetes, obstructive sleep apnea not currently utilizing CPAP, osteoarthritis, and GERD. - Related Data Home Medications Medication Instructions Recorded Confirmed traZODone HCL [Desyrel] 100 mg PO HS 01/17/19 09/19/21 Tiotropium 2.5 Mcg/Puff [Spiriva 2 puff INHALATION RT-DAILY 08/25/21 09/19/21 Respimat 2.5 Mcg] Albuterol Sulfate [Albuterol 2 puff PO RT-Q6H PRN 09/19/21 09/19/21 Sulfate Hfa] Apixaban [Eliquis] 5 mg PO BID 09/19/21 09/19/21 Pantoprazole Sodium [Protonix] 40 mg PO DAILY 09/19/21 09/19/21 Previous Rx's Medication Instructions Recorded Acetaminophen Tab [Tylenol] 650 mg PO Q6HR PRN #30 tab 09/30/21 Furosemide [Lasix] 40 mg PO BID@0900,1600 30 Days #60 09/30/21 tab HYDROcodone/APAP 5-325MG [[place] 1 each PO Q6HR PRN #6 tab 09/30/21 5-325] Metoprolol Tartrate [Lopressor] 25 mg PO BID 30 Days #60 tab 09/30/21 Ondansetron Odt [Zofran Odt] 4 mg PO Q8HR PRN #20 tab 09/30/21 Sennosides [Senokot] 8.6 mg PO BID PRN tab 09/30/21 metFORMIN HCL 500 mg PO BID 30 Days #60 tablet 09/30/21 Allergies Allergy/AdvReac Type Severity Reaction Status Date / Time Penicillins Allergy Severe Anaphylaxis Verified 12/05/21 00:32 TRACE METALS Allergy itching,rachna Uncoded 12/05/21 00:32 h Review of Systems ROS Statement: Those systems with pertinent positive or pertinent negative responses have been documented in the HPI. ROS Other: All systems not noted in ROS Statement are negative. Past Medical History Past Medical History: Chest Pain / Angina, COPD, Diabetes Mellitus, GERD/Reflux, Hyperlipidemia, Hypertension, Osteoarthritis (OA), Skin Disorder, Sleep Apnea/CPAP/BIPAP Additional Past Medical History / Comment(s): Diagnosed with mild pancreatitis on 01/22/19, NIDDM type II, neuropathy bilateral hands/legs/feet, arthritis in multiple joints, bilateral carpal tunnel syndrome, gastric ulcer, ADRIANA-no longer uses device since wt loss, varicose veins, venous dermatitis. History of Any Multi-Drug Resistant Organisms: None Reported Past Surgical History: Adenoidectomy, Appendectomy, Bariatric Surgery, Cholecystectomy, Orthopedic Surgery, Tonsillectomy Additional Past Surgical History / Comment(s): 01/13/15 Lap laila en Y gastric by pass with lysis of adhesions, EGDs, colonoscopies, bilateral knee arthroscopy, bilateral knee replacements, D&C Past Anesthesia/Blood Transfusion Reactions: No Reported Reaction Additional Past Anesthesia/Blood Transfusion Reaction / Comment(s): Pt is slow to wake from anesthesia. She has received blood in past without reaction. Past Psychological History: Anxiety, Depression Smoking Status: Former smoker Past Alcohol Use History: None Reported Past Drug Use History: None Reported - Past Family History Mother Family Medical History: Cancer, Deep Vein Thrombosis (DVT) Additional Family Medical History / Comment(s): Mother had uterine cancer. Father Family Medical History: Congestive Heart Failure (CHF), Sleep Apnea/CPAP/BIPAP Additional Family Medical History / Comment(s): Father was an alcoholic. He of CHF at the age of 48yrs. Brother(s) Family Medical History: Coronary Artery Disease (CAD) (Status post PCI) General Exam Limitations: no limitations General appearance: alert, in no apparent distress Head exam: Present: atraumatic, normocephalic, normal inspection Eye exam: Present: normal appearance, PERRL, EOMI. Absent: scleral icterus, conjunctival injection, periorbital swelling ENT exam: Present: normal exam, mucous membranes moist Neck exam: Present: normal inspection, full ROM. Absent: lymphadenopathy Respiratory exam: Present: normal lung sounds bilaterally. Absent: respiratory distress, wheezes, rales, rhonchi, stridor Cardiovascular Exam: Present: regular rate, normal rhythm, normal heart sounds, systolic murmur. Absent: diastolic murmur, rubs, gallop, clicks GI/Abdominal exam: Present: soft, normal bowel sounds. Absent: distended, tenderness, guarding, rebound, rigid Extremities exam: Present: normal inspection. Absent: pedal edema, joint swelling Back exam: Present: normal inspection Neurological exam: Present: alert, oriented X3, CN II-XII intact Psychiatric exam: Present: normal affect, normal mood Skin exam: Present: warm, dry, intact, normal color. Absent: rash Course Vital Signs 12/05/21 12/05/21 00:32 01:12 Temperature 98.6 F Pulse Rate 86 85 Respiratory 16 Rate Blood Pressure 165/78 O2 Sat by Pulse 94 L 94 L Oximetry Medical Decision Making - Medical Decision Making 66-year-old female presenting to the emergency room with waking up during the night with shortness of breath. Concern for progression of ADRIANA back to where she needs CPAP however giving underlying medical conditions will workup further with a chest x-ray, EKG, CBC, CMP, Covid swab, troponin and coags. - Lab Data Result diagrams: 12/05/21 01:17 12/05/21 01:17 Lab Results 12/05/21 12/05/21 12/05/21 Range/Units 01:12 01:17 01:17 WBC 9.1 (3.8-10.6) k/uL RBC 4.63 (3.80-5.40) m/uL Hgb 13.7 (11.4-16.0) gm/dL Hct 41.8 (34.0-46.0) % MCV 90.2 (80.0-100.0) fL MCH 29.6 (25.0-35.0) pg MCHC 32.8 (31.0-37.0) g/dL RDW 13.0 (11.5-15.5) % Plt Count 162 (150-450) k/uL MPV 8.6 Neutrophils % 88 % Lymphocytes % 7 % Monocytes % 2 % Eosinophils % 2 % Basophils % 0 % Neutrophils # 8.0 H (1.3-7.7) k/uL Lymphocytes # 0.6 L (1.0-4.8) k/uL Monocytes # 0.2 (0-1.0) k/uL Eosinophils # 0.2 (0-0.7) k/uL Basophils # 0.0 (0-0.2) k/uL PT 12.6 H (9.0-12.0) sec INR 1.2 H (<1.2) APTT 27.1 (22.0-30.0) sec Sodium (137-145) mmol/L Potassium (3.5-5.1) mmol/L Chloride (98-107) mmol/L Carbon Dioxide (22-30) mmol/L Anion Gap mmol/L BUN (7-17) mg/dL Creatinine (0.52-1.04) mg/dL Est GFR (CKD-EPI)AfAm (>60 ml/min/1.73 sqM) Est GFR (CKD-EPI)NonAf (>60 ml/min/1.73 sqM) Glucose (74-99) mg/dL Plasma Lactic Acid Bradly (0.7-2.0) mmol/L Calcium (8.4-10.2) mg/dL Total Bilirubin (0.2-1.3) mg/dL AST (14-36) U/L ALT (4-34) U/L Alkaline Phosphatase (38-126) U/L Troponin I (0.000-0.034) ng/mL Total Protein (6.3-8.2) g/dL Albumin (3.5-5.0) g/dL Coronavirus (PCR) Not Detected (Not Detectd) 12/05/21 12/05/21 12/05/21 Range/Units 01:17 01:17 01:17 WBC (3.8-10.6) k/uL RBC (3.80-5.40) m/uL Hgb (11.4-16.0) gm/dL Hct (34.0-46.0) % MCV (80.0-100.0) fL MCH (25.0-35.0) pg MCHC (31.0-37.0) g/dL RDW (11.5-15.5) % Plt Count (150-450) k/uL MPV Neutrophils % % Lymphocytes % % Monocytes % % Eosinophils % % Basophils % % Neutrophils # (1.3-7.7) k/uL Lymphocytes # (1.0-4.8) k/uL Monocytes # (0-1.0) k/uL Eosinophils # (0-0.7) k/uL Basophils # (0-0.2) k/uL PT (9.0-12.0) sec INR (<1.2) APTT (22.0-30.0) sec Sodium 138 (137-145) mmol/L Potassium 3.4 L (3.5-5.1) mmol/L Chloride 99 (98-107) mmol/L Carbon Dioxide 27 (22-30) mmol/L Anion Gap 12 mmol/L BUN 18 H (7-17) mg/dL Creatinine 0.66 (0.52-1.04) mg/dL Est GFR (CKD-EPI)AfAm >90 (>60 ml/min/1.73 sqM) Est GFR (CKD-EPI)NonAf >90 (>60 ml/min/1.73 sqM) Glucose 159 H (74-99) mg/dL Plasma Lactic Acid Bradly 1.9 (0.7-2.0) mmol/L Calcium 9.2 (8.4-10.2) mg/dL Total Bilirubin 0.4 (0.2-1.3) mg/dL AST 20 (14-36) U/L ALT 7 (4-34) U/L Alkaline Phosphatase 145 H (38-126) U/L Troponin I <0.012 (0.000-0.034) ng/mL Total Protein 6.4 (6.3-8.2) g/dL Albumin 3.7 (3.5-5.0) g/dL Coronavirus (PCR) (Not Detectd) - EKG Data EKG Comments: EKG with poorly quality in led 2, shows sinus rhythm with probable old infarcts. Ventricular rate 90 bpm, SC interval 206 ms, QRS duration 89 ms, QT/QTC 341/389 ms, PRT axes 24, -28, 236 - Radiology Data Radiology results: report reviewed, image reviewed Chest x-ray two-view shows no active cardiopulmonary disease. There is clearing of the left pleural effusion compared to old exam. Disposition Clinical Impression: Shortness of breath Disposition: HOME SELF-CARE Condition: Stable Instructions (If sedation given, give patient instructions): Shortness of Breath (ED) Additional Instructions: Please return to the Emergency Department if symptoms worsen or any other concerns. Please follow-up with your primary care provider. Please continue your regular medication regimen. Please follow-up with sleep center regarding possible need for resumption of CPAP usage. Is patient prescribed a controlled substance at d/c from ED?: No Referrals: Celestino Gerard MD [REFERRING] - 1-2 days Anshul Neville MD [STAFF PHYSICIAN] - 1-2 days Time of Disposition: 03:46
--- NOTE | 2021-12-05 01:10 | XR ---
EXAMINATION TYPE: XR chest 2V DATE OF EXAM: 12/05/2021 COMPARISON: NONE HISTORY: Short of breath TECHNIQUE: 2 views FINDINGS: Heart is normal. Lungs are clear of infiltrate. No heart failure. There are no hilar masses . The bony thorax is intact. IMPRESSION: No active cardiopulmonary disease. There is clearing of the left pleural effusion compare d to old exam.
[2021-12-05 01:24] LABS: Basophils % (A) 0 %; Eosinophils # (A) 0.2 k/uL (0-0.7); Eosinophils % (A) 2 %; HCT 41.8 % (34.0-46.0); HGB 13.7 gm/dL (11.4-16.0); Lymphocytes # (A) 0.6 k/uL (1.0-4.8); Lymphocytes % (A) 7 %; MCH 29.6 pg (25.0-35.0); MCHC 32.8 g/dL (31.0-37.0); MCV 90.2 fL (80.0-100.0); Mean Platelet Volume 8.6; Monocytes # (A) 0.2 k/uL (0-1.0); Monocytes % (A) 2 %; Neutrophils % (A) 88 %; Platelet Count 162 k/uL (150-450); RBC 4.63 m/uL (3.80-5.40); WBC 9.1 k/uL (3.8-10.6)
[2021-12-05 01:32] LABS: INR 1.2 (<1.2); Partial Thromboplastin Time 27.1 sec (22.0-30.0); Prothrombin Time 12.6 sec (9.0-12.0)
[2021-12-05 01:43] LABS: ALT 7 U/L (4-34); AST 20 U/L (14-36); African American GFR (CKD) >90 (>60 ml/min/1.73 sqM); Albumin 3.7 g/dL (3.5-5.0); Alkaline Phosphatase 145 U/L (38-126); Anion Gap 12 mmol/L; Blood Urea Nitrogen 18 mg/dL (7-17); Calcium 9.2 mg/dL (8.4-10.2); Carbon Dioxide 27 mmol/L (22-30); Chloride 99 mmol/L (98-107); Glucose 159 mg/dL (74-99); Non-African American GFR(CKD) >90 (>60 ml/min/1.73 sqM); Potassium 3.4 mmol/L (3.5-5.1); Sodium 138 mmol/L (137-145); Total Bilirubin 0.4 mg/dL (0.2-1.3); Total Protein 6.4 g/dL (6.3-8.2)
[2021-12-05 04:05] VITALS: BP 133/70; PULSE 81; RESP 18
== END 2021-12-05 04:04 | disposition home or self-care (01) ==
LOC: EC 00:28
DX: R06.02 Shortness of breath (principal); J44.9 Chronic obstructive pulmonary disease, unspecified; E11.9 Type 2 diabetes mellitus without complications; K21.9 Gastro-esophageal reflux disease without esophagitis; E78.5 Hyperlipidemia, unspecified; I10 Essential (primary) hypertension; M19.90 Unspecified osteoarthritis, unspecified site; Z87.891 Personal history of nicotine dependence; Z20.822 Contact with and (suspected) exposure to COVID-19; Z79.899 Other long term (current) drug therapy; Z88.0 Allergy status to penicillin; Z91.048 Other nonmedicinal substance allergy status
CPT/HCPCS: 36415; 71046; 80053; 83605; 84484; 85025; 85610; 85730; 87635; 99285

== ENCOUNTER 2021-12-06 20:44 | Inpatient (IN) | payer MEDICARE, OTHER ==
[2021-12-06] MEDS ORDERED: ACETAMINOPHEN TAB 325 MG TAB PO STA (21:03)
[2021-12-06 22:30] LABS: Basophils % (A) 1 %; Eosinophils % (A) 0 %; HCT 40.6 % (34.0-46.0); HGB 13.5 gm/dL (11.4-16.0); Lymphocytes # (A) 0.6 k/uL (1.0-4.8); Lymphocytes % (A) 11 %; MCH 29.7 pg (25.0-35.0); MCHC 33.4 g/dL (31.0-37.0); MCV 88.8 fL (80.0-100.0); Mean Platelet Volume 9.6; Monocytes # (A) 0.4 k/uL (0-1.0); Monocytes % (A) 6 %; Neutrophils # (A) 4.7 k/uL (1.3-7.7); Neutrophils % (A) 80 %; Platelet Count 121 k/uL (150-450); RBC 4.57 m/uL (3.80-5.40); RDW 13.4 % (11.5-15.5); WBC 5.9 k/uL (3.8-10.6)
--- NOTE | 2021-12-06 22:33 | XR ---
EXAMINATION TYPE: XR chest 2V DATE OF EXAM: 12/06/2021 COMPARISON: 12/05/2021 HISTORY: Difficulty breathing TECHNIQUE: FINDINGS: Heart is normal. There is some linear density in the lingula left upper lobe. The other yumiko g graves are clear. There are no hilar masses. No pleural effusion or pneumothorax. Bony thorax is in tact. IMPRESSION: There is some mild lingula linear density that could be some atelectasis and slightly inc reased compared to yesterday. Normal heart.
[2021-12-06 22:43] LABS: ALT 11 U/L (4-34); AST 24 U/L (14-36); African American GFR (CKD) >90 (>60 ml/min/1.73 sqM); Albumin 3.5 g/dL (3.5-5.0); Alkaline Phosphatase 120 U/L (38-126); Anion Gap 11 mmol/L; Blood Urea Nitrogen 20 mg/dL (7-17); Calcium 8.8 mg/dL (8.4-10.2); Carbon Dioxide 28 mmol/L (22-30); Chloride 96 mmol/L (98-107); Glucose 202 mg/dL (74-99); Non-African American GFR(CKD) 89 (>60 ml/min/1.73 sqM); Potassium 3.2 mmol/L (3.5-5.1); Sodium 135 mmol/L (137-145); Total Bilirubin 0.6 mg/dL (0.2-1.3); Total Protein 6.2 g/dL (6.3-8.2)
[2021-12-07] MEDS ORDERED: POTASSIUM BICARBONATE/CIT AC 20 MEQ TABLET.EFF PO ONE (01:39)
[2021-12-07] MEDS ORDERED: KETOROLAC 15 MG/ML 1 ML VIAL IVP STA (01:39)
[2021-12-07] MEDS ORDERED: SODIUM CHLORIDE 0.9% 1,000 ML IV STA (01:39)
[2021-12-07] MEDS ORDERED: IPRATROPIUM-ALBUTEROL 3 ML NEB INHALATION PRN ×2 (01:40)
[2021-12-07] MEDS ORDERED: AZITHROMYCIN 500 MG in SODIUM CHLORIDE 0.9% 250 ML IVPB STA (01:40)
[2021-12-07] MEDS ORDERED: PNEUMONIA PROTOCOL UTILIZED 1 EACH MISC PO PRN (01:40)
--- NOTE | 2021-12-07 01:41 | ED ---
Recheck HPI - General Chief Complaint: Shortness of Breath Stated Complaint: KEVIN,Not feeling well Time Seen by Provider: 12/07/21 01:39 Source: patient, RN notes reviewed, old records reviewed Mode of arrival: wheelchair Limitations: no limitations - History of Present Illness Initial Comments: This is a 66-year-old female presenting for reevaluation of fever, patient was concerned she may have coronavirus is here yesterday coronavirus is negative. P atient has persistent fever chest pain shortness of breath. MD Complaint: abnormal lab, needs IV antibiotics -: days(s) Returns Today for: request for prescription, needs IV antibiotics, persistent/worsening pain related to initial visit Symptoms Since Prior Visit: worsening pain, fever Context: planned re-check Associated Symptoms: fever, chills, shortness of breath, malaise, nausea Treatments Prior to Arrival: other (0) - Related Data Home Medications Medication Instructions Recorded Confirmed traZODone HCL [Desyrel] 100 mg PO HS 01/17/19 09/19/21 Tiotropium 2.5 Mcg/Puff [Spiriva 2 puff INHALATION RT-DAILY 08/25/21 09/19/21 Respimat 2.5 Mcg] Albuterol Sulfate [Albuterol 2 puff PO RT-Q6H PRN 09/19/21 09/19/21 Sulfate Hfa] Apixaban [Eliquis] 5 mg PO BID 09/19/21 09/19/21 Pantoprazole Sodium [Protonix] 40 mg PO DAILY 09/19/21 09/19/21 Previous Rx's Medication Instructions Recorded Acetaminophen Tab [Tylenol] 650 mg PO Q6HR PRN #30 tab 09/30/21 Furosemide [Lasix] 40 mg PO BID@0900,1600 30 Days #60 09/30/21 tab HYDROcodone/APAP 5-325MG [[place] 1 each PO Q6HR PRN #6 tab 09/30/21 5-325] Metoprolol Tartrate [Lopressor] 25 mg PO BID 30 Days #60 tab 09/30/21 Ondansetron Odt [Zofran Odt] 4 mg PO Q8HR PRN #20 tab 09/30/21 Sennosides [Senokot] 8.6 mg PO BID PRN tab 09/30/21 metFORMIN HCL 500 mg PO BID 30 Days #60 tablet 09/30/21 Allergies Allergy/AdvReac Type Severity Reaction Status Date / Time Penicillins Allergy Severe Anaphylaxis Verified 12/06/21 21:00 TRACE METALS Allergy itching,rachna Uncoded 12/06/21 21:00 h Review of Systems ROS Statement: Those systems with pertinent positive or pertinent negative responses have been documented in the HPI. ROS Other: All systems not noted in ROS Statement are negative. Past Medical History Past Medical History: Chest Pain / Angina, COPD, Diabetes Mellitus, GERD/Reflux, Hyperlipidemia, Hypertension, Osteoarthritis (OA), Skin Disorder, Sleep Apnea/CPAP/BIPAP Additional Past Medical History / Comment(s): Diagnosed with mild pancreatitis on 01/22/19, NIDDM type II, neuropathy bilateral hands/legs/feet, arthritis in multiple joints, bilateral carpal tunnel syndrome, gastric ulcer, ADRIANA-no longer uses device since wt loss, varicose veins, venous dermatitis. History of Any Multi-Drug Resistant Organisms: None Reported Past Surgical History: Adenoidectomy, Appendectomy, Bariatric Surgery, Cholecystectomy, Orthopedic Surgery, Tonsillectomy Additional Past Surgical History / Comment(s): 01/13/15 Lap laila en Y gastric bypass with lysis of adhesions, EGDs, colonoscopies, bilateral knee arthroscopy, bilateral knee replacements, D&C Past Anesthesia/Blood Transfusion Reactions: No Reported Reaction Additional Past Anesthesia/Blood Transfusion Reaction / Comment(s): Pt is slow to wake from anesthesia. She has received blood in past without reaction. Past Psychological History: Anxiety, Depression Smoking Status: Former smoker Past Alcohol Use History: None Reported Past Drug Use History: None Reported - Past Family History Mother Family Medical History: Cancer, Deep Vein Thrombosis (DVT) Additional Family Medical History / Comment(s): Mother had uterine cancer. Father Family Medical History: Congestive Heart Failure (CHF), Sleep Apnea/CPAP/BIPAP Additional Family Medical History / Comment(s): Father was an alcoholic. He of CHF at the age of 48yrs. Brother(s) Family Medical History: Coronary Artery Disease (CAD) (Status post PCI) General Exam Limitations: no limitations General appearance: alert, in no apparent distress, anxious Head exam: Present: atraumatic, normocephalic, normal inspection Eye exam: Present: normal appearance, PERRL, EOMI. Absent: scleral icterus, conjunctival injection, periorbital swelling ENT exam: Present: normal exam, mucous membranes moist Neck exam: Present: normal inspection. Absent: tenderness, meningismus, lymphadenopathy Respiratory exam: Present: normal lung sounds bilaterally. Absent: respiratory distress, wheezes, rales, rhonchi, stridor Cardiovascular Exam: Present: regular rate, normal rhythm, normal heart sounds. Absent: systolic murmur, diastolic murmur, rubs, gallop, clicks GI/Abdominal exam: Present: soft, normal bowel sounds. Absent: distended, tenderness, guarding, rebound, rigid Extremities exam: Present: normal inspection, full ROM, normal capillary refill. Absent: tenderness, pedal edema, joint swelling, calf tenderness Back exam: Present: normal inspection Neurological exam: Present: alert, oriented X3, CN II-XII intact Psychiatric exam: Present: normal affect, normal mood Skin exam: Present: warm, dry, intact, normal color. Absent: rash Course Vital Signs 12/06/21 12/07/21 21:01 02:13 Temperature 100.9 F H 98.3 F Pulse Rate 95 72 Respiratory 18 Rate Blood Pressure 135/81 O2 Sat by Pulse 95 96 Oximetry - Reevaluation(s) Reevaluation #1: 12/07/21 01:50 medical record is reveiwed Reevaluation #2: 12/07/21 01:50 patient symptoms improved Reevaluation #3: 12/07/21 01:50 patient is informed of results and questions answered - Consultations Consultation #1: spoke w [facility] for admission Medical Decision Making - Medical Decision Making 66 female to the emergency department for evaluation positive fever as well as pneumonia. Patient will be admitted for further evaluation management - Lab Data Result diagrams: 12/06/21 22:20 12/06/21 22:20 Lab Results 12/06/21 12/06/21 12/06/21 Range/Units 22:20 22:20 22:20 WBC 5.9 (3.8-10.6) k/uL RBC 4.57 (3.80-5.40) m/uL Hgb 13.5 (11.4-16.0) gm/dL Hct 40.6 (34.0-46.0) % MCV 88.8 (80.0-100.0) fL MCH 29.7 (25.0-35.0) pg MCHC 33.4 (31.0-37.0) g/dL RDW 13.4 (11.5-15.5) % Plt Count 121 L (150-450) k/uL MPV 9.6 Neutrophils % 80 % Lymphocytes % 11 % Monocytes % 6 % Eosinophils % 0 % Basophils % 1 % Neutrophils # 4.7 (1.3-7.7) k/uL Lymphocytes # 0.6 L (1.0-4.8) k/uL Monocytes # 0.4 (0-1.0) k/uL Eosinophils # 0.0 (0-0.7) k/uL Basophils # 0.0 (0-0.2) k/uL Sodium 135 L (137-145) mmol/L Potassium 3.2 L (3.5-5.1) mmol/L Chloride 96 L (98-107) mmol/L Carbon Dioxide 28 (22-30) mmol/L Anion Gap 11 mmol/L BUN 20 H (7-17) mg/dL Creatinine 0.71 (0.52-1.04) mg/dL Est GFR (CKD-EPI)AfAm >90 (>60 ml/min/1.73 sqM) Est GFR (CKD-EPI)NonAf 89 (>60 ml/min/1.73 sqM) Glucose 202 H (74-99) mg/dL Calcium 8.8 (8.4-10.2) mg/dL Total Bilirubin 0.6 (0.2-1.3) mg/dL AST 24 (14-36) U/L ALT 11 (4-34) U/L Alkaline Phosphatase 120 (38-126) U/L Troponin I 0.018 (0.000-0.034) ng/mL Total Protein 6.2 L (6.3-8.2) g/dL Albumin 3.5 (3.5-5.0) g/dL - Radiology Data Radiology results: report reviewed (chest x-rays positive for pneumonia), image reviewed Disposition Clinical Impression: Community acquired pneumonia, Fever, Weakness, Unstable angina, Hypokalemia Disposition: ADMITTED IP TO THIS [facility] Condition: Fair Is patient prescribed a controlled substance at d/c from ED?: No Time of Disposition: 01:40
[2021-12-07] MEDS: SODIUM CHLORIDE 0.9% 1,000 ML IV SCH ×2 (02:24→12:25)
[2021-12-07] MEDS: ACETAMINOPHEN TAB 500 MG TAB PO PRN ×2 (08:21→16:55)
[2021-12-07 08:41] LABS: Glucose,Whole Blood 127 mg/dL (70-110)
[2021-12-07] MEDS ORDERED: DEXTROSE 50% SYRINGE 50 ML IVP PRN ×2 (10:53)
[2021-12-07 11:35] LABS: Glucose,Whole Blood 262 mg/dL (70-110)
[2021-12-07] MEDS: INSULIN ASPART (NovoLOG) 100 UNIT/ML VIAL SQ SCH ×3 (12:24→20:22)
[2021-12-07] MEDS ORDERED: SENNOSIDES 8.6 MG TAB PO PRN (12:28)
[2021-12-07] MEDS ORDERED: ONDANSETRON ODT 4 MG TAB PO PRN (12:28)
[2021-12-07 13:28] LABS: Appearance,Urine Cloudy (Clear); Bacteria,Urine Rare /hpf; Bilirubin,Urine Negative (Negative); Blood,Urine Large (Negative); Color,Urine Yellow; Glucose,Urine (UA) 3+ (Negative); Ketones,Urine Trace (Negative); Leukocyte Esterase,Urine Large (Negative); Mucus,Urine Rare /hpf; Nitrite,Urine Negative (Negative); Protein,Urine 1+ (Negative); RBC,Urine 73 /hpf (0-5); Specific Gravity,Urine 1.021 (1.001-1.035); Squamous Epithelial Cell,Urine <1 /hpf (0-4); Urobilinogen,Urine <2.0 mg/dL (<2.0); WBC,Urine >182 /hpf (0-5)
--- NOTE | 2021-12-07 15:29 | P.CNPUL ---
History of Present Illness Consult date: 12/07/21 Requesting physician: Shelby Linares Reason for consult: dyspnea Chief complaint: Shortness of breath, orthopnea History of present illness: This a 66-year-old female patient with a known history of hypertension, hyperlipidemia, arthritis, obesity with previous Laila-en-Y bariatric surgery, mild ascending aortic aneurysm, gastroesophageal reflux disease, obstructive sleep apnea improved post-bariatric surgery, diabetes mellitus with diabetic neuropathy, chronic obstructive pulmonary disease, recent admission for left- sided pleural effusion and a large pericardial effusion with thrombus. No e vidence of cardiac tamponade. She had undergone a left-sided thoracentesis with 1.7 L of pleural fluid removed. Cytology was negative. She had been seen in follow-up by Dr. Drew 10/22/2021 and x-ray showed a small residual left- sided pleural effusion at that time. Her FEV1 value is 40% of predicted and she is maintained on Spiriva. He presented here to the emergency room yesterday with complaints of increasing shortness of breath and she was concern for possible coronavirus. She tested negative. She's had persistent fever, chest pain and shortness of breath. Sticks reveals some mild lingular linear density most likely atelectasis. No significant pleural effusion. No pneumothorax. White count 5.9. Hemoglobin 13.5. Platelets 121. Sodium 135. Potassium 3.2. BUN 20. Creatinine 0.71. Troponin negative 1. Urinalysis cloudy and with large WBCs. She was initiated on normal saline at 130 ML's per hour. She is seen today in consultation on the regular medical floor. She is currently sitting up in bed. Awake and alert in no acute distress. Maintaining good O2 saturations in the 90s on room air. She is febrile with a temperature of 102.8. Blood pressure stable. No tachycardia. She's been initiated on DuoNeb inhalations, ceftriaxone and azithromycin. Anticoagulated with Eliquis. Oral diuretics. Review of Systems REVIEW OF SYSTEMS: CONSTITUTIONAL: Febrile illness. Denies any recent significant weight loss or weight gain. EYES: Denies change in vision. EARS, NOSE, MOUTH, THROAT: Denies headaches, denies sore throat. CARDIOVASCULAR: Denies chest pain, palpitations or syncopal episodes. RESPIRATORY: Positive for shortness of breath, cough, congestion no hemoptysis. GASTROINTESTINAL: Denies change in appetite, denies abdominal pain GENITOURINARY: Denies hematuria, denies infections. MUSKULOSKELETAL: Denies pain, denies swelling. INTEGUMENTARY: Denies rash, denies eczema. NEUROLOGICAL: Denies recent memory loss, no recent seizure activity. PSYCHIATRIC: Denies anxiety, denies depression. HEMATOLOGIC/LYMPHATIC: Denies anemia, denies enlarged lymph nodes. Past Medical History Past Medical History: Chest Pain / Angina, COPD, Diabetes Mellitus, GERD/Reflux, Hyperlipidemia, Hypertension, Osteoarthritis (OA), Skin Disorder, Sleep Apnea/CPAP/BIPAP Additional Past Medical History / Comment(s): Diagnosed with mild pancreatitis on 01/22/19, NIDDM type II, neuropathy bilateral hands/legs/feet, arthritis in multiple joints, bilateral carpal tunnel syndrome, gastric ulcer, ADRIANA-no longer uses device since wt loss, varicose veins, venous dermatitis. History of Any Multi-Drug Resistant Organisms: None Reported Past Surgical History: Adenoidectomy, Appendectomy, Bariatric Surgery, Cholecystectomy, Orthopedic Surgery, Tonsillectomy Additional Past Surgical History / Comment(s): 01/13/15 Lap laila en Y gastric bypass with lysis of adhesions, EGDs, colonoscopies, bilateral knee arthroscopy, bilateral knee replacements, D&C Past Anesthesia/Blood Transfusion Reactions: No Reported Reaction Additional Past Anesthesia/Blood Transfusion Reaction / Comment(s): Pt is slow to wake from anesthesia. She has received blood in past without reaction. Past Psychological History: Anxiety, Depression Additional Psychological History / Comment(s): Pt resides with her SO. She uses a cane and walker if needed. 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 Smoking Status: Former smoker Past Alcohol Use History: None Reported Additional Past Alcohol Use History / Comment(s): Pt started smoking in 1969 and quit smoking in 2009 Past Drug Use History: None Reported - Past Family History Mother Family Medical History: Cancer, Deep Vein Thrombosis (DVT) Additional Family Medical History / Comment(s): Mother had uterine cancer. Father Family Medical History: Congestive Heart Failure (CHF), Sleep Apnea/CPAP/BIPAP Additional Family Medical History / Comment(s): Father was an alcoholic. He of CHF at the age of 48yrs. Brother(s) Family Medical History: Coronary Artery Disease (CAD) Medications and Allergies Home Medications Medication Instructions Recorded Confirmed Type Tiotropium 2.5 Mcg/Puff [Spiriva 2 puff INHALATION RT-DAILY 08/25/21 12/07/21 History Respimat 2.5 Mcg] Albuterol Sulfate [Albuterol 2 puff INHALATION RT-Q6H PRN 09/19/21 12/07/21 History Sulfate Hfa] Apixaban [Eliquis] 5 mg PO BID 09/19/21 12/07/21 History Acetaminophen Tab [Tylenol] 650 mg PO Q6HR PRN #30 tab 09/30/21 12/07/21 Rx Furosemide [Lasix] 40 mg PO BID@0900,1600 30 Days #60 09/30/21 12/07/21 Rx tab Metoprolol Tartrate [Lopressor] 25 mg PO BID 30 Days #60 tab 09/30/21 12/07/21 Rx Sennosides [Senokot] 8.6 mg PO BID PRN tab 09/30/21 12/07/21 Rx Atorvastatin Calcium [Lipitor] 40 mg PO HS 12/07/21 12/07/21 History Omeprazole 20 mg PO DAILY 12/07/21 12/07/21 History Ondansetron Odt [Zofran Odt] 4 mg PO BID PRN 12/07/21 12/07/21 History QUEtiapine FUMARATE [SEROquel] 25 mg PO HS 12/07/21 12/07/21 History metFORMIN HCL 1,000 mg PO BID 12/07/21 12/07/21 History Allergies Allergy/AdvReac Type Severity Reaction Status Date / Time Penicillins Allergy Severe Anaphylaxis Verified 12/07/21 08:22 TRACE METALS Allergy itching,rachna Uncoded 12/07/21 08:22 h Physical Exam Vitals: Vital Signs Temp Pulse Pulse Resp BP BP Pulse Ox 12/07/21 09:40 91 17 12/07/21 09:00 102.8 F H 91 17 143/79 95 12/07/21 08:36 94 18 95 12/07/21 08:18 102.6 F H 98 18 95 12/07/21 07:32 100 18 187/81 98 12/07/21 02:13 98.3 F 72 96 12/06/21 21:01 100.9 F H 95 18 135/81 95 Intake and Output 12/07/21 12/07/21 12/07/21 06:59 14:59 22:59 Other: Voiding Method External Catheter Weight 80.739 kg GENERAL EXAM: Alert, 66 year old female, on room air, comfortable in no apparent distress. HEAD: Normocephalic. EYES: Normal reaction of pupils, equal size. NOSE: Clear with pink turbinates. THROAT: No erythema or exudates. NECK: No masses, no JVD. CHEST: No chest wall deformity. LUNGS: Equal air entry with no crackles, wheeze, rhonchi or dullness. CVS: S1 and S2 normal with no audible murmur, regular rhythm. ABDOMEN: No hepatosplenomegaly, normal bowel sounds, no guarding or rigidity. SPINE: No scoliosis or deformity SKIN: No rashes CENTRAL NERVOUS SYSTEM: No focal deficits, tone is normal in all 4 extremities. EXTREMITIES: There is no peripheral edema. No clubbing, no cyanosis. Peripheral pulses are intact. Results - Laboratory Findings CBC and BMP: 12/06/21 22:20 12/06/21 22:20 Abnormal lab findings: Abnormal Labs 12/06/21 12/06/21 12/07/21 22:20 22:20 08:40 Plt Count 121 L Lymphocytes # 0.6 L Sodium 135 L Potassium 3.2 L Chloride 96 L BUN 20 H Glucose 202 H POC Glucose (mg/dL) 127 H Total Protein 6.2 L Urine Appearance Urine Protein Urine Glucose (UA) Urine Ketones Urine Blood Ur Leukocyte Esterase Urine RBC Urine WBC Urine Bacteria Urine Mucus 12/07/21 12/07/21 11:33 13:06 Plt Count Lymphocytes # Sodium Potassium Chloride BUN Glucose POC Glucose (mg/dL) 262 H Total Protein Urine Appearance Cloudy H Urine Protein 1+ H Urine Glucose (UA) 3+ H Urine Ketones Trace H Urine Blood Large H Ur Leukocyte Esterase Large H Urine RBC 73 H Urine WBC >182 H Urine Bacteria Rare H Urine Mucus Rare H - Diagnostic Findings Chest x-ray: image reviewed Assessment and Plan Assessment: Febrile illness with generalized weakness secondary to urinary tract infection, culture pending initiated ceftriaxone and azithromycin. Coronavirus by PCR not detected. History of large left-sided pleural effusion with thoracentesis 09/24/2021 with 1.7 L of fluid removed. Transudate. Negative cytology. No recurrence based on chest x-ray History of pericardial effusion without tamponade Chronic obstructive pulmonary disease with FEV1 value of 40% of predicted. Vannesa ntained on Spiriva. Previous history of 20 year smoking Diabetes mellitus Diabetic neuropathy History of obesity status post Laila-en-Y gastric bypass History of obstructive sleep apnea, improved post-bariatric surgery History of anxiety/depression Hyperlipidemia Hypertension History of thrombotic, cytopenia purpura follows with oncology Plan: The patient was seen and evaluated Chest x-ray, labs and medications reviewed Urine culture pending, currently on ceftriaxone and azithromycin Currently stable and on room air Continue bronchodilators We will continue to follow and make further recommendations based on her clinical status I have personally seen and examined the patient, performed the documentation and the assessment and plan as written. Number of minutes spent on the visit: 20.
[2021-12-07 16:29] LABS: Glucose,Whole Blood 183 mg/dL (70-110)
[2021-12-07] MEDS: FUROSEMIDE 40 MG TAB PO SCH (16:56)
[2021-12-07 20:23] LABS: Glucose,Whole Blood 147 mg/dL (70-110)
[2021-12-07] MEDS: METOPROLOL TARTRATE 25 MG TAB PO SCH (20:23)
[2021-12-07] MEDS: metFORMIN 500 MG TAB PO SCH (20:23)
[2021-12-07] MEDS: APIXABAN 5 MG TAB PO SCH (20:23)
[2021-12-07] MEDS: ATORVASTATIN 40 MG TAB PO SCH (20:23)
[2021-12-07] MEDS: QUEtiapine 25 MG TAB PO SCH (20:23)
[2021-12-08] MEDS: SODIUM CHLORIDE 0.9% 1,000 ML IV SCH ×2 (01:24→21:40)
--- NOTE | 2021-12-08 02:57 | HP ---
HISTORY AND PHYSICAL CHIEF COMPLAINT: Shortness of breath and cough. HISTORY OF PRESENT ILLNESS: This is a 66-year-old woman with a past medical history of multiple medical problems including COPD, diabetes, and multiple medical issues, was complaining of shortness of breath and cough and sputum. The patient came to [facility] with left lower lobe pneumonia, left lingular pneumonia suspected. The patient was admitted for evaluation and treatment. There is no history of any headache, loss of consciousness, or seizures. The patient did have fever. PAST MEDICAL HISTORY: Reviewed, include diabetes mellitus and COPD, multiple medical issues. HOME MEDICATIONS: Again reviewed include Senokot, doses and rest of medication noted. ALLERGIES: Penicillin. Reviewed. FAMILY HISTORY: History of DVT, cancer. SOCIAL HISTORY: Previous history of smoking. No history of alcohol intake. REVIEW OF SYSTEMS: A 14-point review of systems is negative except as mentioned earlier. PHYSICAL EXAMINATION: VITAL SIGNS: Pulse is 92, blood pressure 143/79, respirations 17. HEENT: Conjunctivae normal. NECK: No JVD. CARDIOVASCULAR: S1, S2 muffled. RESPIRATIONS: Breath sounds diminished at the bases. A few scattered rhonchi and crackles. ABDOMEN: Soft, nontender. LEGS: Evidence of some cellulitis in the right lower leg present. NERVOUS SYSTEM: No focal deficits. SKIN: No ulcer, rash, bleeding. JOINTS: No active deforming arthropathy. LABS: Reviewed. Sodium 131. Rest of the labs are noted. ASSESSMENT: 1. Fever, possible left lingular pneumonia and cellulitis. 2. Chronic obstructive pulmonary disease. 3. Diabetes mellitus type 2. 4. Hypertension. 5. Hyperlipidemia. 6. Multiple medical issues. RECOMMENDATIONS AND DISCUSSION: Recommend to continue current management and symptomatic treatment on broad-spectrum IV antibiotics. Obtain cultures. Infectious Disease and Pulmonary consultations. COVID- 19 is negative. Guarded prognosis because of multiple complex medical issues. Further recommendations to follow. See orders for further details. MMODL / IJN: [id number] /
--- NOTE | 2021-12-08 06:58 | XR ---
EXAMINATION TYPE: XR chest 2V DATE OF EXAM: 12/08/2021 COMPARISON: Chest x-ray 2 days ago HISTORY: Pneumonia. TECHNIQUE: Frontal and lateral views of the chest are obtained. FINDINGS: There is no new suspicious focal air space opacity, pleural effusion, or pneumothorax seen . The cardiac silhouette size is mildly enlarged on current study. The osseous structures are inta ct. IMPRESSION: No new suspicious acute infiltrate identified.
--- NOTE | 2021-12-08 07:12 | P.CONS ---
History of Present Illness - Reason for Consult Consult date: 12/07/21 - History of Present Illness Patient is a 66-year-old female with a past medical history significant for hyperlipidemia hypertension obesity with previous gastric bypass surgery diabetes mellitus COPD presenting to the hospital last night for evaluation of increasing shortness of breath also complaining of some cough which has been chronic for her no worsening cough and not bringing up any sputum patient denies having any chest pain patient also complaining of painful urination at the end and foul-smelling but denies any suprapubic or flank pain patient on presentation to the hospital did have a fever of 100.9 and subsequently spiked a fever of 102.8 F this morning patient did have a positive UA white count has been normal creatinine was normal liver enzymes are normal COVID testing was negative patient did have a chest x-ray mild lingular linear density could be atelectasis patient was started onRocephin and Zithromax infectious disease was consulted for further management of antibiotic therapy Past Medical History Past Medical History: Chest Pain / Angina, COPD, Diabetes Mellitus, GERD/Reflux, Hyperlipidemia, Hypertension, Osteoarthritis (OA), Skin Disorder, Sleep Apnea/CPAP/BIPAP Additional Past Medical History / Comment(s): Diagnosed with mild pancreatitis on 01/22/19, NIDDM type II, neuropathy bilateral hands/legs/feet, arthritis in multiple joints, bilateral carpal tunnel syndrome, gastric ulcer, ADRIANA-no longer uses device since wt loss, varicose veins, venous dermatitis. History of Any Multi-Drug Resistant Organisms: None Reported Past Surgical History: Adenoidectomy, Appendectomy, Bariatric Surgery, Cholecystectomy, Orthopedic Surgery, Tonsillectomy Additional Past Surgical History / Comment(s): 01/13/15 Lap laila en Y gastric bypass with lysis of adhesions, EGDs, colonoscopies, bilateral knee arthroscopy, bilateral knee replacements, D&C Past Anesthesia/Blood Transfusion Reactions: No Reported Reaction Additional Past Anesthesia/Blood Transfusion Reaction / Comm: Pt is slow to wake from anesthesia. She has received blood in past without reaction. Past Psychological History: Anxiety, Depression Additional Psychological History / Comment(s): Pt resides with her SO. She uses a cane and walker if needed. 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 Smoking Status: Former smoker Past Alcohol Use History: None Reported Additional Past Alcohol Use History / Comment(s): Pt started smoking in 1969 and quit smoking in 2009 Past Drug Use History: None Reported - Past Family History Mother Family Medical History: Cancer, Deep Vein Thrombosis (DVT) Additional Family Medical History / Comment(s): Mother had uterine cancer. Father Family Medical History: Congestive Heart Failure (CHF), Sleep Apnea/CPAP/BIPAP Additional Family Medical History / Comment(s): Father was an alcoholic. He of CHF at the age of 48yrs. Brother(s) Family Medical History: Coronary Artery Disease (CAD) Medications and Allergies Home Medications Medication Instructions Recorded Confirmed Type Tiotropium 2.5 Mcg/Puff [Spiriva 2 puff INHALATION RT-DAILY 08/25/21 12/07/21 History Respimat 2.5 Mcg] Albuterol Sulfate [Albuterol 2 puff INHALATION RT-Q6H PRN 09/19/21 12/07/21 History Sulfate Hfa] Apixaban [Eliquis] 5 mg PO BID 09/19/21 12/07/21 History Acetaminophen Tab [Tylenol] 650 mg PO Q6HR PRN #30 tab 09/30/21 12/07/21 Rx Furosemide [Lasix] 40 mg PO BID@0900,1600 30 Days #60 09/30/21 12/07/21 Rx tab Metoprolol Tartrate [Lopressor] 25 mg PO BID 30 Days #60 tab 09/30/21 12/07/21 Rx Sennosides [Senokot] 8.6 mg PO BID PRN tab 09/30/21 12/07/21 Rx Atorvastatin Calcium [Lipitor] 40 mg PO HS 12/07/21 12/07/21 History Omeprazole 20 mg PO DAILY 12/07/21 12/07/21 History Ondansetron Odt [Zofran Odt] 4 mg PO BID PRN 12/07/21 12/07/21 History QUEtiapine FUMARATE [SEROquel] 25 mg PO HS 12/07/21 12/07/21 History metFORMIN HCL 1,000 mg PO BID 12/07/21 12/07/21 History Allergies Allergy/AdvReac Type Severity Reaction Status Date / Time Penicillins Allergy Severe Anaphylaxis Verified 12/07/21 08:22 TRACE METALS Allergy itching,rachna Uncoded 12/07/21 08:22 h Physical Exam Vitals: Vital Signs Temp Pulse Pulse Resp BP BP Pulse Ox 12/07/21 09:40 91 17 12/07/21 09:00 102.8 F H 91 17 143/79 95 12/07/21 08:36 94 18 95 12/07/21 08:18 102.6 F H 98 18 95 12/07/21 07:32 100 18 187/81 98 12/07/21 02:13 98.3 F 72 96 12/06/21 21:01 100.9 F H 95 18 135/81 95 Intake and Output 12/06/21 12/07/21 12/07/21 22:59 06:59 14:59 Other: Voiding Method External Catheter Weight 80.739 kg 80.739 kg Results CBC & Chem 7: 12/06/21 22:20 12/06/21 22:20 Labs: Abnormal Lab Results - Last 24 Hours (Table) 12/06/21 12/06/21 12/07/21 Range/Units 22:20 22:20 08:40 Plt Count 121 L (150-450) k/uL Lymphocytes # 0.6 L (1.0-4.8) k/uL Sodium 135 L (137-145) mmol/L Potassium 3.2 L (3.5-5.1) mmol/L Chloride 96 L (98-107) mmol/L BUN 20 H (7-17) mg/dL Glucose 202 H (74-99) mg/dL POC Glucose (mg/dL) 127 H (70-110) mg/dL Total Protein 6.2 L (6.3-8.2) g/dL Urine Appearance (Clear) Urine Protein (Negative) Urine Glucose (UA) (Negative) Urine Ketones (Negative) Urine Blood (Negative) Ur Leukocyte Esterase (Negative) Urine RBC (0-5) /hpf Urine WBC (0-5) /hpf Urine Bacteria (None) /hpf Urine Mucus (None) /hpf 12/07/21 12/07/21 Range/Units 11:33 13:06 Plt Count (150-450) k/uL Lymphocytes # (1.0-4.8) k/uL Sodium (137-145) mmol/L Potassium (3.5-5.1) mmol/L Chloride (98-107) mmol/L BUN (7-17) mg/dL Glucose (74-99) mg/dL POC Glucose (mg/dL) 262 H (70-110) mg/dL Total Protein (6.3-8.2) g/dL Urine Appearance Cloudy H (Clear) Urine Protein 1+ H (Negative) Urine Glucose (UA) 3+ H (Negative) Urine Ketones Trace H (Negative) Urine Blood Large H (Negative) Ur Leukocyte Esterase Large H (Negative) Urine RBC 73 H (0-5) /hpf Urine WBC >182 H (0-5) /hpf Urine Bacteria Rare H (None) /hpf Urine Mucus Rare H (None) /hpf Assessment and Plan Plan: 1patient presented to hospital with increasing shortness of breath she also have a cough did have a fever chest x-ray is mostly atelectasis do not have any significant respiratory symptoms in this patient with underlying COPD also has significantly positive UA and urine symptom high clinical suspicious for UTI likely from UTI gram-negative pathogen 2patient to continue with Rocephin while waiting for the culture to finalize We will follow on clinical condition and cultures to further adjust medication if needed Thank you for this consultation will follow this patient along with you
[2021-12-08 07:29] LABS: Glucose,Whole Blood 93 mg/dL (70-110)
[2021-12-08] MEDS: ACETAMINOPHEN TAB 500 MG TAB PO PRN ×2 (08:31→17:28)
[2021-12-08] MEDS: APIXABAN 5 MG TAB PO SCH ×2 (08:31→21:39)
[2021-12-08] MEDS: FUROSEMIDE 40 MG TAB PO SCH ×2 (08:31→17:29)
[2021-12-08] MEDS: PANTOPRAZOLE 40 MG TABLET PO SCH (08:31)
[2021-12-08] MEDS: AZITHROMYCIN 500 MG TAB PO SCH (08:31)
[2021-12-08] MEDS: METOPROLOL TARTRATE 25 MG TAB PO SCH ×2 (08:31→21:39)
[2021-12-08] MEDS: metFORMIN 500 MG TAB PO SCH ×2 (08:31→21:39)
[2021-12-08] MEDS: IPRATROPIUM 0.5 MG/2.5 ML NEBU INHALATION SCH ×4 (09:18→20:00)
[2021-12-08] MEDS: INSULIN ASPART (NovoLOG) 100 UNIT/ML VIAL SQ SCH ×4 (10:08→21:52)
[2021-12-08 10:56] LABS: African American GFR (CKD) 109.3 (60.0-200.0); Anion Gap 9.9 mmol/L (10.00-18.00); BUN/Creat Ratio 20.5 Ratio (12.00-20.00); Blood Urea Nitrogen 12.3 mg/dL (9.0-27.0); Calcium 8.2 mg/dL (8.7-10.3); Carbon Dioxide 26.1 mmol/L (20.0-27.5); Non-African American GFR(CKD) 94.3 (60.0-200.0); Potassium 3.1 mmol/L (3.5-5.5)
[2021-12-08 11:16] LABS: Glucose,Whole Blood 131 mg/dL (70-110)
[2021-12-08 12:02] LABS: Basophils # (A) 0.02 X 10*3/uL (0.00-0.10); Basophils % (A) 0.5 %; Eosinophils # (A) 0.04 X 10*3/uL (0.04-0.35); HCT 37.9 % (37.2-46.3); HGB 12.7 g/dL (12.0-15.0); Immature Grans, Automated 0.5 %; Lymphocytes # (A) 0.92 X 10*3/uL (0.90-5.00); Lymphocytes % (A) 23.9 %; MCH 30.6 pg (27.0-32.0); MCHC 33.5 g/dL (32.0-37.0); MCV 91.3 fL (80.0-97.0); Mean Platelet Volume 11.4 fL (9.5-12.2); NRBC Per 100 WBC 0 /100 WBCS (0.0-0.0); Neutrophils # (A) 2.35 X 10*3/uL (1.80-7.70); Neutrophils % (A) 61.1 %; Platelet Count 116 X 10*3/uL (140-440); RBC 4.15 X 10*6/uL (4.10-5.20); RDW 13.2 % (11.5-14.5); WBC 3.85 X 10*3/uL (4.50-10.00)
--- NOTE | 2021-12-08 14:06 | P.PN ---
Subjective Progress Note Date: 12/08/21 This a 66-year-old female patient with a known history of hypertension, hyperlipidemia, arthritis, obesity with previous Chinedu-en-Y bariatric surgery, mild ascending aortic aneurysm, gastroesophageal reflux disease, obstructive sleep apnea improved post-bariatric surgery, diabetes mellitus with diabetic ne uropathy, chronic obstructive pulmonary disease, recent admission for left-sided pleural effusion and a large pericardial effusion with thrombus. No evidence of cardiac tamponade. She had undergone a left-sided thoracentesis with 1.7 L of pleural fluid removed. Cytology was negative. She had been seen in follow-up by Dr. Drew 10/22/2021 and x-ray showed a small residual left-sided pleural effusion at that time. Her FEV1 value is 40% of predicted and she is maintained on Spiriva. He presented here to the emergency room yesterday with complaints of increasing shortness of breath and she was concern for possible coronavirus. She tested negative. She's had persistent fever, chest pain and shortness of breath. Sticks reveals some mild lingular linear density most likely atelectasis. No significant pleural effusion. No pneumothorax. White count 5.9. Hemoglobin 13.5. Platelets 121. Sodium 135. Potassium 3.2. BUN 20. Creatinine 0.71. Troponin negative 1. Urinalysis cloudy and with large WBCs. She was initiated on normal saline at 130 ML's per hour. She is seen today in consultation on the regular medical floor. She is currently sitting up in bed. Awake and alert in no acute distress. Maintaining good O2 saturations in the 90s on room air. She is febrile with a temperature of 102.8. Blood pressure stable. No tachycardia. She's been initiated on DuoNeb inhalations, ceftriaxone and azithromycin. Anticoagulated with Eliquis. Oral diuretics. The patient is seen today 12/08/2021 in follow-up on the regular medical floor. She is currently resting comfortably in bed. Awake and alert in no acute distress. Maintaining good O2 saturations in the 90s on room air. Chest x-ray did not show any acute pulmonary process. White count 3.8. Hemoglobin 12.7. Sodium 139. Potassium 3.1. BUN 12. Creatinine 0.6. Glucose 112. She has been maintained on DuoNeb inhalations, antibiotics in form of ceftriaxone and azithromycin. Anticoagulated with Eliquis. Objective - Vital Signs Vital signs: Vital Signs Temp 99.6 F 12/08/21 08:33 Pulse 82 12/08/21 09:29 Resp 14 12/08/21 08:33 BP 101/75 12/08/21 08:33 Pulse Ox 96 12/08/21 08:33 FiO2 Intake & Output 12/07/21 12/08/21 12/08/21 18:59 06:59 18:59 Intake Total 1430 Output Total 950 Balance 1430 -950 Intake: Intake, IV Titration 780 Amount Sodium Chloride 0.9% 1, 780 000 ml @ 50 mls/hr IV . [facility] Rx#:[id number] Oral 650 Output: Urine 950 Other: Voiding Method External Catheter External Catheter # Voids 2 - Exam GENERAL EXAM: Alert, 66 year old female, on room air, comfortable in no apparent distress. HEAD: Normocephalic. EYES: Normal reaction of pupils, equal size. NOSE: Clear with pink turbinates. THROAT: No erythema or exudates. NECK: No masses, no JVD. CHEST: No chest wall deformity. LUNGS: Equal air entry with no crackles, wheeze, rhonchi or dullness. CVS: S1 and S2 normal with no audible murmur, regular rhythm. ABDOMEN: No hepatosplenomegaly, normal bowel sounds, no guarding or rigidity. SPINE: No scoliosis or deformity SKIN: No rashes CENTRAL NERVOUS SYSTEM: No focal deficits, tone is normal in all 4 extremities. EXTREMITIES: There is no peripheral edema. No clubbing, no cyanosis. Peripheral pulses are intact. - Labs CBC & Chem 7: 12/08/21 07:21 12/08/21 07:21 Labs: Abnormal Lab Results - Last 24 Hours (Table) 12/06/21 12/07/21 12/07/21 Range/Units 10:59 16:28 20:22 WBC (4.50-10.00) X 10*3/uL Plt Count (140-440) X 10*3/uL Potassium (3.5-5.5) mmol/L Anion Gap (10.00-18.00) mmol/L BUN/Creatinine Ratio (12.00-20.00) Ratio Glucose (70-110) mg/dL POC Glucose (mg/dL) 183 H 147 H (70-110) mg/dL Hemoglobin A1c 7.0 H (0.0-6.0) % Calcium (8.7-10.3) mg/dL 12/08/21 12/08/21 12/08/21 Range/Units 07:21 07:21 11:15 WBC 3.85 L (4.50-10.00) X 10*3/uL Plt Count 116 L (140-440) X 10*3/uL Potassium 3.1 L (3.5-5.5) mmol/L Anion Gap 9.90 L (10.00-18.00) mmol/L BUN/Creatinine Ratio 20.50 H (12.00-20.00) Ratio Glucose 112 H (70-110) mg/dL POC Glucose (mg/dL) 131 H (70-110) mg/dL Hemoglobin A1c (0.0-6.0) % Calcium 8.2 L (8.7-10.3) mg/dL Microbiology - Last 24 Hours (Table) 12/07/21 02:15 Blood Culture - Preliminary Blood No Growth after 24 hours 12/07/21 02:00 Blood Culture - Preliminary Blood No Growth after 24 hours 12/07/21 18:29 Urine Culture - Preliminary Urine,Clean Catch Assessment and Plan Assessment: Febrile illness with generalized weakness secondary to urinary tract infection, culture pending initiated ceftriaxone and azithromycin. Coronavirus by PCR not detected. History of large left-sided pleural effusion with thoracentesis 09/24/2021 with 1.7 L of fluid removed. Transudate. Negative cytology. No recurrence based on chest x-ray History of pericardial effusion without tamponade Chronic obstructive pulmonary disease with FEV1 value of 40% of predicted. Maintained on Spiriva. Previous history of 20 year smoking Diabetes mellitus Diabetic neuropathy History of obesity status post Chinedu-en-Y gastric bypass History of obstructive sleep apnea, improved post-bariatric surgery History of anxiety/depression Hyperlipidemia Hypertension History of thrombotic, cytopenia purpura follows with oncology Plan: The patient was seen and evaluated Chest x-ray, labs and medications reviewed Urine culture pending, currently on ceftriaxone and azithromycin Currently stable and on room air Continue bronchodilators Cleared for discharge from the pulmonary system I have personally seen and examined the patient, performed the documentation and the assessment and plan as written. Number of minutes spent on the visit: 10.
[2021-12-08 17:11] LABS: Glucose,Whole Blood 132 mg/dL (70-110)
[2021-12-08 20:45] LABS: Glucose,Whole Blood 216 mg/dL (70-110)
[2021-12-08] MEDS: QUEtiapine 25 MG TAB PO SCH (21:39)
[2021-12-08] MEDS: ATORVASTATIN 40 MG TAB PO SCH (21:39)
[2021-12-09] MEDS: SODIUM CHLORIDE 0.9% 1,000 ML IV SCH (01:34)
[2021-12-09 07:21] LABS: Glucose,Whole Blood 81 mg/dL (70-110)
[2021-12-09] MEDS: INSULIN ASPART (NovoLOG) 100 UNIT/ML VIAL SQ SCH ×2 (08:29→12:49)
[2021-12-09] MEDS: APIXABAN 5 MG TAB PO SCH (08:35)
[2021-12-09] MEDS: METOPROLOL TARTRATE 25 MG TAB PO SCH (08:35)
[2021-12-09] MEDS: metFORMIN 500 MG TAB PO SCH (08:35)
[2021-12-09] MEDS: FUROSEMIDE 40 MG TAB PO SCH (08:35)
[2021-12-09] MEDS: PANTOPRAZOLE 40 MG TABLET PO SCH (08:35)
[2021-12-09] MEDS: AZITHROMYCIN 500 MG TAB PO SCH (08:36)
[2021-12-09] MEDS: IPRATROPIUM 0.5 MG/2.5 ML NEBU INHALATION SCH ×2 (08:44→12:27)
[2021-12-09 12:40] LABS: Glucose,Whole Blood 125 mg/dL (70-110)
--- NOTE | 2021-12-09 13:11 | P.PN ---
Subjective Progress Note Date: 12/09/21 This a 66-year-old female patient with a known history of hypertension, hyperlipidemia, arthritis, obesity with previous Chinedu-en-Y bariatric surgery, mild ascending aortic aneurysm, gastroesophageal reflux disease, obstructive sleep apnea improved post-bariatric surgery, diabetes mellitus with diabetic ne uropathy, chronic obstructive pulmonary disease, recent admission for left-sided pleural effusion and a large pericardial effusion with thrombus. No evidence of cardiac tamponade. She had undergone a left-sided thoracentesis with 1.7 L of pleural fluid removed. Cytology was negative. She had been seen in follow-up by Dr. Drew 10/22/2021 and x-ray showed a small residual left-sided pleural effusion at that time. Her FEV1 value is 40% of predicted and she is maintained on Spiriva. He presented here to the emergency room yesterday with complaints of increasing shortness of breath and she was concern for possible coronavirus. She tested negative. She's had persistent fever, chest pain and shortness of breath. Sticks reveals some mild lingular linear density most likely atelectasis. No significant pleural effusion. No pneumothorax. White count 5.9. Hemoglobin 13.5. Platelets 121. Sodium 135. Potassium 3.2. BUN 20. Creatinine 0.71. Troponin negative 1. Urinalysis cloudy and with large WBCs. She was initiated on normal saline at 130 ML's per hour. She is seen today in consultation on the regular medical floor. She is currently sitting up in bed. Awake and alert in no acute distress. Maintaining good O2 saturations in the 90s on room air. She is febrile with a temperature of 102.8. Blood pressure stable. No tachycardia. She's been initiated on DuoNeb inhalations, ceftriaxone and azithromycin. Anticoagulated with Eliquis. Oral diuretics. The patient is seen today 12/08/2021 in follow-up on the regular medical floor. She is currently resting comfortably in bed. Awake and alert in no acute distress. Maintaining good O2 saturations in the 90s on room air. Chest x-ray did not show any acute pulmonary process. White count 3.8. Hemoglobin 12.7. Sodium 139. Potassium 3.1. BUN 12. Creatinine 0.6. Glucose 112. She has been maintained on DuoNeb inhalations, antibiotics in form of ceftriaxone and azithromycin. Anticoagulated with Eliquis. The patient is seen today 12/09/2021 in follow-up on the regular medical floor. She is resting comfortably in bed. Awake and alert in no acute distress. Maintaining good O2 saturations in the 90s on room air. Blood cultures reveal no growth. Urine culture revealed no growth. Chest x-ray showed no acute pulmonary process. Blood sugar 125. She remains on bronchodilators, empiric antibiotics in the form of ceftriaxone, anticoagulated with Eliquis. Objective - Vital Signs Vital signs: Vital Signs Temp 98.0 F 12/09/21 07:42 Pulse 80 12/09/21 12:37 Resp 16 12/09/21 07:42 BP 167/90 12/09/21 07:42 Pulse Ox 98 12/09/21 07:42 FiO2 Intake & Output 12/08/21 12/09/21 12/09/21 18:59 06:59 18:59 Intake Total 550 Output Total 700 1000 Balance -150 -1000 Intake: Oral 550 Output: Urine 700 1000 Other: Voiding Method External Catheter # Voids 3 - Exam GENERAL EXAM: Alert, 66 year old female, on room air, comfortable in no apparent distress. HEAD: Normocephalic. EYES: Normal reaction of pupils, equal size. NOSE: Clear with pink turbinates. THROAT: No erythema or exudates. NECK: No masses, no JVD. CHEST: No chest wall deformity. LUNGS: Equal air entry with no crackles, wheeze, rhonchi or dullness. CVS: S1 and S2 normal with no audible murmur, regular rhythm. ABDOMEN: No hepatosplenomegaly, normal bowel sounds, no guarding or rigidity. SPINE: No scoliosis or deformity SKIN: No rashes CENTRAL NERVOUS SYSTEM: No focal deficits, tone is normal in all 4 extremities. EXTREMITIES: There is no peripheral edema. No clubbing, no cyanosis. Peripheral pulses are intact. - Labs CBC & Chem 7: 12/08/21 07:21 12/08/21 07:21 Labs: Abnormal Lab Results - Last 24 Hours (Table) 12/08/21 12/08/21 12/08/21 Range/Units 07:21 17:10 20:35 POC Glucose (mg/dL) 132 H 216 H (70-110) mg/dL Procalcitonin 0.54 H (0.02-0.09) ng/mL 12/09/21 Range/Units 12:38 POC Glucose (mg/dL) 125 H (70-110) mg/dL Procalcitonin (0.02-0.09) ng/mL Microbiology - Last 24 Hours (Table) 12/07/21 02:15 Blood Culture - Preliminary Blood No Growth after 48 hours 12/07/21 02:00 Blood Culture - Preliminary Blood No Growth after 48 hours 12/07/21 18:29 Urine Culture - Final Urine,Clean Catch Assessment and Plan Assessment: Febrile illness with generalized weakness secondary to urinary tract infection, treated with ceftriaxone. Urine culture reveals no growth. Coronavirus by PCR not detected. History of large left-sided pleural effusion with thoracentesis 09/24/2021 with 1.7 L of fluid removed. Transudate. Negative cytology. No recurrence based on chest x-ray History of pericardial effusion without tamponade Chronic obstructive pulmonary disease with FEV1 value of 40% of predicted. Maintained on Spiriva. Previous history of 20 year smoking Diabetes mellitus Diabetic neuropathy History of obesity status post Chinedu-en-Y gastric bypass History of obstructive sleep apnea, improved post-bariatric surgery History of anxiety/depression Hyperlipidemia Hypertension History of thrombotic, cytopenia purpura follows with oncology Plan: The patient was seen and evaluated Labs and medications reviewed Currently stable and on room air Cleared for discharge from the pulmonary standpoint I have personally seen and examined the patient, performed the documentation and the assessment and plan as written. Number of minutes spent on the visit: 10.
[2021-12-09 14:15] VITALS: BP 150/76; PULSE 63; RESP 17; TEMP 97.7
--- NOTE | 2021-12-09 20:23 | PN ---
PROGRESS NOTE SUBJECTIVE: This is a 66-year-old woman, who was admitted with shortness of breath and fever with a possible left lingular pneumonia and also had a possible UTI also. The cultures are negative so far. No chest pain. No palpitation. The most recent chest x-ray showed no new infiltrate. PHYSICAL EXAMINATION: VITAL SIGNS: Pulse 70, blood pressure ntd, respirations 17. CHEST: Few scattered rhonchi. CARDIOVASCULAR: S1 and S2 ABDOMEN: Soft. NERVOUS SYSTEM: No focal deficits. LABORATORY DATA: Reviewed. ASSESSMENT: 1. Fever, possible left lingular pneumonia and cellulitis. 2. Possible acute urinary tract infection, present on admission. 3. Chronic obstructive pulmonary disease. 4. Diabetes mellitus, type 2. 5. Multiple medical issues. RECOMMENDATIONS: Recommend to continue current management and symptomatic treatment. Continue with antibiotics. Follow the cultures closely with Infectious Disease. Guarded prognosis. Further recommendations to follow. MMODL / IJN: [id number] / MTDD
--- NOTE | 2021-12-10 14:19 | P.DS ---
Providers Date of admission: 12/07/21 01:40 Expected date of discharge: 12/09/21 Attending physician: Shelby Linares Consults: 12/07/21 12:27 Consult Physician Routine Consulting Provider: Sher Drew Consult Reason/Comments: copd Do you want consulting provider notified?: Yes 12/07/21 12:28 Consult Physician Routine Consulting Provider: Serene Mehta Consult Reason/Comments: fever Do you want consulting provider notified?: Yes Primary care physician: Mamadou Gerard Hospital Course: Final diagnosis Fever, most likely secondary to acute urinary tract infection Acute urinary tract infection, present on admission Chronic obstructive pulmonary disease Diabetes mellitus, type II Full code Discharge disposition Patient is being discharged in a stable condition with guarded prognosis to home with home care. Patient will follow-up with Dr. Gerard in the outpatient setting upon discharge. Patient is to follow-up with pulmonary in the outpatient setting as well. Patient to continue short course of oral Zithromax along with oral Ceftin for the next 5 days to complete the course. Total time taken is greater than 35 minutes. Hospital course This is a 66-year-old female who was recently admitted with shortness of breath and fever for possible left lingular pneumonia and also possible UTI and was being closely monitored. Patient was being followed by pulmonary and on antibiotics with improvement and will follow-up in the outpatient setting on discharge. Urine cultures were negative and patient was evaluated by infectious disease and will continue quick course of oral Ceftin along with Zithromax for the next 5 days to complete the course. Currently no reports of chest pain, worsening shortness of breath, or palpitations. Patient is afebrile. No reports of nausea or vomiting and patient is tolerating diet. Patient will be discharged home today. Guarded prognosis. Physical exam: Gen: This is a 66-year-old female awake, alert and oriented 3, well-developed, well-nourished. HEENT: Head is atraumatic, normocephalic. Pupils equal, round. Sclerae is anicteric. NECK: Supple. No JVD. No lymphadenopathy. No thyromegaly. LUNGS: Diminished breath sounds bilaterally with some scattered rhonchi noted. No intercostal retractions. HEART: S1, S2 are muffled ABDOMEN: Soft. Bowel sounds are present. No masses. No tenderness. EXTREMITIES: No pedal edema. No calf tenderness. NEUROLOGICAL: Patient is awake, alert and oriented x3. Cranial nerves 2 through 12 are grossly intact. Please refer to medication reconciliation sheet for a list of medications. The impression and plan of care has been dictated by Taina Yuen, Nurse Practitioner as directed. Dr. Vijay MD I have performed a history and examination and MDM of this patient, discussed the same with the dictator, and agree with the dictator's assessment and plan as written ,documented as a scribe. Based on total visit time, I have performed more than 50% of the visit. Patient Condition at Discharge: Fair Plan - Discharge Summary Discharge Rx Participant: Yes New Discharge Prescriptions: New Azithromycin [Zithromax] 500 mg PO DAILY 5 Days #5 tab cefUROXime axetiL [Ceftin] 500 mg PO BID 5 Days #10 tab Continue Tiotropium 2.5 Mcg/Puff [Spiriva Respimat 2.5 Mcg] 2 puff INHALATION RT-DAILY Apixaban [Eliquis] 5 mg PO BID Albuterol Sulfate [Albuterol Sulfate Hfa] 2 puff INHALATION RT-Q6H PRN PRN Reason: Shortness Of Breath Furosemide [Lasix] 40 mg PO BID@0900,1600 30 Days #60 tab Metoprolol Tartrate [Lopressor] 25 mg PO BID 30 Days #60 tab metFORMIN HCL 1,000 mg PO BID Omeprazole 20 mg PO DAILY Atorvastatin Calcium [Lipitor] 40 mg PO HS Sennosides [Senokot] 8.6 mg PO BID PRN tab PRN Reason: Constipation Acetaminophen Tab [Tylenol] 650 mg PO Q6HR PRN #30 tab PRN Reason: Fever and/ or MILD Pain QUEtiapine FUMARATE [SEROquel] 25 mg PO HS Ondansetron Odt [Zofran ODT] 4 mg PO BID PRN PRN Reason: Nausea Discharge Medication List Tiotropium 2.5 Mcg/Puff [Spiriva Respimat 2.5 Mcg] 2 puff INHALATION RT-DAILY 08/25/21 [History] Albuterol Sulfate [Albuterol Sulfate Hfa] 2 puff INHALATION RT-Q6H PRN 09/19/21 [History] Apixaban [Eliquis] 5 mg PO BID 09/19/21 [History] Acetaminophen Tab [Tylenol] 650 mg PO Q6HR PRN #30 tab 09/30/21 [Rx] Furosemide [Lasix] 40 mg PO BID@0900,1600 30 Days #60 tab 09/30/21 [Rx] Metoprolol Tartrate [Lopressor] 25 mg PO BID 30 Days #60 tab 09/30/21 [Rx] Sennosides [Senokot] 8.6 mg PO BID PRN tab 09/30/21 [Rx] Atorvastatin Calcium [Lipitor] 40 mg PO HS 12/07/21 [History] Omeprazole 20 mg PO DAILY 12/07/21 [History] Ondansetron Odt [Zofran ODT] 4 mg PO BID PRN 12/07/21 [History] QUEtiapine FUMARATE [SEROquel] 25 mg PO HS 12/07/21 [History] metFORMIN HCL 1,000 mg PO BID 12/07/21 [History] Azithromycin [Zithromax] 500 mg PO DAILY 5 Days #5 tab 12/09/21 [Rx] cefUROXime axetiL [Ceftin] 500 mg PO BID 5 Days #10 tab 12/09/21 [Rx] Follow up Appointment(s)/Referral(s): Mamadou Gerard DO [Primary Care Provider] - 12/15/21 11:30 am Ambulatory/Diagnostic Orders: Complete Blood Count w/diff [LAB.AMB] Time Frame: 3 Days, Location: None Selected Patient Instructions/Handouts: Viral Pneumonia (DC) Activity/Diet/Wound Care/Special Instructions: Activity Limited until follow-up Follow-up with primary care provider on discharge Follow-up with pulmonary outpatient Continue taking medications as prescribed Continue heart healthy diabetic diet and continue to monitor blood sugars Recommend repeat CBC and BMP in the next 2-3 days Discharge Disposition: HOME SELF-CARE
--- NOTE | 2021-12-11 10:21 | CDI ---
Documentation Clarification Form Date: 12/11/2021 09:59:00 AM From: Janny Pfeiffer Admit Date: 12/07/2021 01:40:00 AM Patient Name: Samantha Priest Visit Number: [id number] Discharge Date: 12/09/2021 04:02:00 PM ATTENTION: The Clinical Documentation Specialists (CDI) and [facility] Coding Staff appreciate your assistance in clarifying documentation. Please respond to the clarification below the line at the bottom and electronically sign. The CDI & [facility] Coding staff will review the response and follow-up if needed. Please note: Queries are made part of the Legal Health Record. If you have any questions, please contact the author of this message via ITS. Dr. Shelby Linares Possible left Lingular pneumonia and cellulitis is documented in the H and P and ED notes. Pneumonia diagnosis is not carried through the chart. Additional clarification regarding whether patient had pneumonia or was it ruled out, is needed. History/Risk Factors: History of recent pneumonia and UTI, Clinical Indicators: WBC/Left shift: 5.9 X-ray: Mild lingula linear density that could be some atelectasis and slightly increase compared to yesterday.l 12/08 CXR No new suspicious acute infiltrate identified. Treatment: IV antibiotics Antibiotics Rocephin and Zithromas Please clarify if patient had pneumonia or was it ruled out: [ ] Pneumonia [ ] Pneumonia ruled out [ ] Other, please specify [ ] Unable to determine Pneumonia ruled out MTDD
== END 2021-12-09 16:02 | disposition home or self-care (01) | DRG 690 ==
LOC: EC 20:44 → 4SSUR 12-07 01:40
PROVIDERS: ADMIT Hospitalist; ATTEND Hospitalist
DX: N39.0 Urinary tract infection, site not specified (principal); J98.11 Atelectasis; E11.40 Type 2 diabetes mellitus with diabetic neuropathy, unspecified; E78.5 Hyperlipidemia, unspecified; E87.6 Hypokalemia; F41.9 Anxiety disorder, unspecified; M15.9 Polyosteoarthritis, unspecified; G62.9 Polyneuropathy, unspecified; D69.2 Other nonthrombocytopenic purpura; K21.9 Gastro-esophageal reflux disease without esophagitis; E66.9 Obesity, unspecified; Z68.28 Body mass index [BMI] 28.0-28.9, adult; F32.A Depression, unspecified; I10 Essential (primary) hypertension; G47.33 Obstructive sleep apnea (adult) (pediatric); Z20.822 Contact with and (suspected) exposure to COVID-19; I71.21 Aneurysm of the ascending aorta, without rupture; Z63.72 Alcoholism and drug addiction in family; Z79.01 Long term (current) use of anticoagulants; Z79.84 Long term (current) use of oral hypoglycemic drugs; Z79.899 Other long term (current) drug therapy; Z80.49 Family history of malignant neoplasm of other genital organs; Z81.1 Family history of alcohol abuse and dependence; Z82.49 Family history of ischemic heart disease and other diseases of the circulatory system; Z87.11 Personal history of peptic ulcer disease; Z87.891 Personal history of nicotine dependence; Z98.84 Bariatric surgery status; Z83.2 Family history of diseases of the blood and blood-forming organs and certain disorders involving the immune mechanism
CPT/HCPCS: 36415; 71046; 80048; 80053; 81001; 83036; 84145; 84484; 85025; 87040; 87086; 87635; 93005; 94640; 96361; 96365; 96366; 96367; 99285

== ENCOUNTER 2022-02-17 14:40 | Emergency (ER) | payer MEDICARE, OTHER ==
[2022-02-17] MEDS ORDERED: TOPICAL SKIN ADHESIVE 1 EACH AMP TOPICAL ONE (16:22)
--- NOTE | 2022-02-17 16:29 | ED ---
General Adult HPI - General Chief complaint: Fall Stated complaint: Fall/head injury Time Seen by Provider: 02/17/22 16:15 Source: patient, RN notes reviewed, old records reviewed Mode of arrival: ambulatory Limitations: no limitations - History of Present Illness Initial comments: This is a 66-year-old female who comes in stating she had a fall she had her left knee has a skin tear on her left elbow and hit her superior orbit on the left on the ground. Patient states she did not lose consciousness she does not have a headache she says the area around the laceration is tender. Patient denies any neck pain patient denies numbness weakness. Patient denies any chest or back pain patient denies any abdominal pain. Patient states she has full ran ge of motion of her upper extremities. There is a skin tear does not bother her when she moves. Patient has no hip pain patient complains of left knee pain anteriorly. Patient states she had a knee replacement 19 years ago. Patient stated that she believes she had a tetanus 2 years ago. - Related Data Home Medications Medication Instructions Recorded Confirmed Tiotropium 2.5 Mcg/Puff [Spiriva 2 puff INHALATION RT-DAILY 08/25/21 02/17/22 Respimat 2.5 Mcg] Albuterol Sulfate [Albuterol 2 puff INHALATION RT-Q6H PRN 09/19/21 02/17/22 Sulfate Hfa] Atorvastatin Calcium [Lipitor] 40 mg PO HS 12/07/21 02/17/22 Omeprazole 20 mg PO DAILY 12/07/21 02/17/22 Ondansetron Odt [Zofran ODT] 4 mg PO BID PRN 12/07/21 02/17/22 QUEtiapine FUMARATE [SEROquel] 25 mg PO HS 12/07/21 02/17/22 metFORMIN HCL 1,000 mg PO BID 12/07/21 02/17/22 Budesonide/Formoterol Fumarate 2 puff INHALATION RT-BID 02/17/22 02/17/22 [Symbicort 160-4.5 Mcg Inhaler] Dapagliflozin Propanediol [Farxiga] 10 mg PO DAILY 02/17/22 02/17/22 Previous Rx's Medication Instructions Recorded Acetaminophen Tab [Tylenol] 650 mg PO Q6HR PRN #30 tab 09/30/21 Furosemide [Lasix] 40 mg PO BID@0900,1600 30 Days #60 09/30/21 tab Metoprolol Tartrate [Lopressor] 25 mg PO BID 30 Days #60 tab 09/30/21 Sennosides [Senokot] 8.6 mg PO BID PRN tab 09/30/21 Allergies Allergy/AdvReac Type Severity Reaction Status Date / Time Penicillins Allergy Severe Anaphylaxis Verified 02/17/22 17:22 TRACE METALS Allergy itching,rachna Uncoded 02/17/22 17:22 h Review of Systems ROS Statement: Those systems with pertinent positive or pertinent negative responses have been documented in the HPI. ROS Other: All systems not noted in ROS Statement are negative. Past Medical History Past Medical History: Chest Pain / Angina, COPD, Diabetes Mellitus, GERD/Reflux, Hyperlipidemia, Hypertension, Osteoarthritis (OA), Skin Disorder, Sleep Apnea/CPAP/BIPAP Additional Past Medical History / Comment(s): Diagnosed with mild pancreatitis on 01/22/19, NIDDM type II, neuropathy bilateral hands/legs/feet, arthritis in multiple joints, bilateral carpal tunnel syndrome, gastric ulcer, ADRIANA-no longer uses device since wt loss, varicose veins, venous dermatitis. History of Any Multi-Drug Resistant Organisms: None Reported Past Surgical History: Adenoidectomy, Appendectomy, Bariatric Surgery, Cholecystectomy, Orthopedic Surgery, Tonsillectomy Additional Past Surgical History / Comment(s): 01/13/15 Lap laila en Y gastric bypass with lysis of adhesions, EGDs, colonoscopies, bilateral knee arthroscopy, bilateral knee replacements, D&C Past Anesthesia/Blood Transfusion Reactions: No Reported Reaction Additional Past Anesthesia/Blood Transfusion Reaction / Comment(s): Pt is slow to wake from anesthesia. She has received blood in past without reaction. Past Psychological History: Anxiety, Depression Smoking Status: Former smoker Past Alcohol Use History: None Reported Past Drug Use History: None Reported - Past Family History Mother Family Medical History: Cancer, Deep Vein Thrombosis (DVT) Additional Family Medical History / Comment(s): Mother had uterine cancer. Father Family Medical History: Congestive Heart Failure (CHF), Sleep Apnea/CPAP/BIPAP Additional Family Medical History / Comment(s): Father was an alcoholic. He of CHF at the age of 48yrs. Brother(s) Family Medical History: Coronary Artery Disease (CAD) General Exam - General Exam Comments Initial Comments: GENERAL: Patient is well-developed and well-nourished. Patient is nontoxic and well- hydrated and is in mild distress. ENT: Neck is soft and supple. No significant lymphadenopathy is noted. Oropharynx is clear. Moist mucous membranes. Neck has full range of motion without eliciting any pain. EYES: The sclera were anicteric and conjunctiva were pink and moist. Extraocular movements were intact and pupils were equal round and reactive to light. Eyelids were unremarkable. PULMONARY: Unlabored respirations. Good breath sounds bilaterally. No audible rales rhonchi or wheezing was noted. CARDIOVASCULAR: There is a regular rate and rhythm without any murmurs gallops or rubs. ABDOMEN: Soft and nontender with normal bowel sounds. SKIN: She has a well approximated 3 cm laceration above the left eye. There is also ecchymosis of the upper eyelid completely. Patient has tenderness about the laceration. Patient also has a skin tear on the left lateral elbow. NEUROLOGIC: Patient is alert and oriented x3. Cranial nerves II through XII are grossly intact. Motor and sensory are also intact. Normal speech, volume and content. Symmetrical smile. MUSCULOSKELETAL: Normal extremities with adequate strength and full range of motion. Patient does have contusion on the anterior left knee right above the patella. Patient has tenderness there but still has full range of motion. LYMPHATICS: No significant lymphadenopathy is noted PSYCHIATRIC: Normal psychiatric evaluation. Limitations: no limitations Course Vital Signs 02/17/22 15:48 Temperature 97.9 F Pulse Rate 79 Respiratory 20 Rate Blood Pressure 113/55 O2 Sat by Pulse 98 Oximetry Procedures - Laceration Laceration #1 Consent Obtained: verbal consent Indication: laceration Site: face Description: linear Size of Sutures: other (Exofin) Patient Tolerated Procedure: well Medical Decision Making - Medical Decision Making CT of the brain and C-spine were interpreted by me. CT of the C-spine and brain showed no acute abnormality no fractures or bleeds noted. CT of the orbits was interpreted by me there was no fracture of the orbits. X-ray of the knee she was interpreted by me showed no acute normalities. I used a little glue to seal the laceration above the left I it was already well approximated. Disposition Clinical Impression: Fall, Laceration of forehead, Traumatic ecchymosis of left eyelid, Contusion, knee Disposition: HOME SELF-CARE Instructions (If sedation given, give patient instructions): Fall Prevention for Older Adults (ED) Is patient prescribed a controlled substance at d/c from ED?: No Referrals: Mamadou Gerard DO [Primary Care Provider] - 1-2 days Time of Disposition: 18:44
--- NOTE | 2022-02-17 16:53 | XR ---
EXAMINATION TYPE: XR knee complete LT DATE OF EXAM: 02/17/2022 4:37 PM INDICATION: Patient age:Female; 66 years old; Reason for study: Trauma; COMPARISON: None. TECHNIQUE: The Left knee(s) was examined in Frontal, lateral and oblique projections. FINDINGS: Total knee arthroplasty changes, no evidence for loosening or fracture. Scattered calcific ations are seen projecting over the joint space. No soft tissue swelling. Atherosclerosis of the luke rial vasculature. IMPRESSION: 1. No acute osseous pathology. 2. Post total left knee arthroplasty changes.
--- NOTE | 2022-02-17 17:33 | CT ---
EXAMINATION TYPE: CT orbits wo con, CT brain cspine wo con CT DLP: combined DLP 916.7 mGycm, Automated exposure control for dose reduction was used. DATE OF EXAM: 02/17/2022 5:08 PM COMPARISON: None. CLINICAL INDICATION:Female, 66 years old with history of Trauma, fall, large contusion over left eye TECHNIQUE Brain: Axial CT images of the brain were obtained with coronal and sagittal reformats created and rev iewed. Orbits: Axial CT with coronal and sagittal reformats through the orbits. Cspine: Axial CT images from the skull base to the inferior aspect of T2 we obtained without intraven ous contrast. Coronal and sagittal reformatted images were also reviewed. Contrast used: None. Oral contrast used: None. Findings: Orbital Contents: * Globes: Normal. * Preseptal Tissues: Normal. * Intraconal Structures: Normal. * Extraconal Structures and Lacrimal Glands: Normal. * Orbital [place]: Normal. Sella Turcica and Cavernous Sinuses: The sella turcica and cavernous sinus regions are intact and sym metric. Visualized Brain Parenchyma: Normal. Paranasal Sinuses and Surrounding Structures: The paranasal sinuses are intact. The mastoid air cells and skull base is intact. Other: Periorbital soft tissue edema/hematoma around the left orbit. Brain: Extra-axial spaces: No abnormal extra-axial fluid collections. Ventricular system: Dilatation in proportion to cerebral atrophy. Cerebral parenchyma: Cerebral atrophy. No acute intraparenchymal hemorrhage or mass effect. The marrero -white junction is well differentiated. Cerebellum: Unremarkable. Mass effect: No evidence of midline shift. Intracranial vasculature: Atherosclerotic calcifications of the intracranial vessels. Soft tissues: Normal. Calvarium/osseous structures: No depressed skull fracture. Paranasal sinuses and mastoid air cells: Mild scattered paranasal sinus disease. Visualized orbits: Orbital contents are intact. Cervical spine: Fracture: None. Osseous structures: Multilevel degenerative disc disease changes with endplate spurring and disc oste ophyte complex's. Vertebral alignment: Within normal limits. Spinal canal/Neural Foramina: Disc osteophyte complexes at C3-C4 through C7-T1 with at least mild spi nal canal stenosis. Facet joint uncovertebral joint arthropathy scattered throughout the cervical spi ne with varying degrees of neural foraminal stenosis. Neck soft tissues: Prevertebral soft tissues are within normal limits. Other: The airway is patent. The lung apices are clear. Partially calcified left parotid gland nodule measuring up to 15 mm. Atherosclerosis at the carotid bifurcations. IMPRESSION: 1. No evidence of orbital irregularity or mass. 2. Left periorbital hematoma without evidence of fracture. The globes are intact. 3. No acute intracranial process. 4. No evidence of cervical spine fracture. 5. Mild multilevel degenerative disc disease.
[2022-02-17 23:15] VITALS: BP 116/58; PULSE 75; RESP 18; TEMP 97.6
== END 2022-02-17 19:00 | disposition home or self-care (01) ==
LOC: EC 14:40
DX: S01.81XA Laceration without foreign body of other part of head, initial encounter (principal); S80.00XA Contusion of unspecified knee, initial encounter; J44.9 Chronic obstructive pulmonary disease, unspecified; E11.9 Type 2 diabetes mellitus without complications; K21.9 Gastro-esophageal reflux disease without esophagitis; E78.5 Hyperlipidemia, unspecified; I10 Essential (primary) hypertension; G47.30 Sleep apnea, unspecified; F41.9 Anxiety disorder, unspecified; F32.A Depression, unspecified; Z87.891 Personal history of nicotine dependence; Z79.899 Other long term (current) drug therapy; Z79.51 Long term (current) use of inhaled steroids; Z88.0 Allergy status to penicillin; Z91.048 Other nonmedicinal substance allergy status; W18.09XA Striking against other object with subsequent fall, initial encounter
CPT/HCPCS: 12001; 70450; 70480; 72125; 99284

== ENCOUNTER → 2022-02-25 | Outpatient (CLI) | payer MEDICARE, OTHER ==
--- NOTE | 2022-02-26 09:34 | MM ---
Reason for Exam: Screening (asymptomatic). Last mammogram was performed 1 year(s) and 9 month(s) ago. Patient History: Menarche at age 10. Patient has no children. Postmenopausal. Maternal cousin had breast cancer. Risk Values: Elaine 5 year model risk: 2.1%. NCI Lifetime model risk: 7.0%. Prior Study Comparison: 01/17/2018 Bilateral Screening Mammogram, [facility]. 03/21/2019 Bilateral Screening Mammogram, [facility]. 06/03/2020 Bilateral Screening Mammogram, [facility]. Tissue Density: There are scattered fibroglandular densities. Findings: Analyzed By CAD. A few small scattered benign-appearing round calcifications bilaterally are redemonstrated. There is no suspicious group of microcalcifications or new suspicious mass in either breast. Overall Assessment: Benign, BI-RAD 2 Management: Screening Mammogram of both breasts in 1 year. A clinical breast exam by your physician is recommended on an annual basis and results should be correlated with mammographic findings. Electronically signed and approved by: Gianluca Pulido M.D.
== END | disposition home or self-care (01) ==
LOC: RADMAMWWP 13:18
PROVIDERS: ATTEND Family Medicine
DX: Z12.31 Encounter for screening mammogram for malignant neoplasm of breast (principal); Z78.0 Asymptomatic menopausal state; Z80.3 Family history of malignant neoplasm of breast
CPT/HCPCS: 77063; 77067

== ENCOUNTER → 2022-06-14 | Outpatient (CLI) | payer MEDICARE, OTHER ==
[2022-06-14 10:58] LABS: Chol/HDL Ratio 1.85 Ratio; LDL Cholesterol,Calculated 39.4 mg/dL (0.0-131.0); VLDL Calculation 19.52 mg/dL (5.00-40.00)
== END | disposition home or self-care (01) ==
LOC: LABWHC1 07:58
PROVIDERS: ATTEND Internal Medicine Interventional Cardiology
DX: E13.42 Other specified diabetes mellitus with diabetic polyneuropathy (principal)
CPT/HCPCS: 36415; 80061

== ENCOUNTER 2022-07-31 18:40 | Observation (INO) | payer MEDICARE, OTHER ==
--- NOTE | 2022-07-31 19:45 | ED ---
General Adult HPI - General Chief complaint: Nausea/Vomiting/Diarrhea Stated complaint: NVD Time Seen by Provider: 07/31/22 19:44 Source: patient Mode of arrival: wheelchair Limitations: no limitations - History of Present Illness Initial comments: Patient presents to the ED with her significant other for evaluation. Patient states that she has had generalized abdominal pain, nausea and watery diarrhea for the past 2 days. Patient also states that she vomited once yesterday, and she states that she has had "chills" at times today. Patient denies taking any antipyretic medication today. Patient denies trauma or injury, headache, neck pain or stiffness, sore throat, cough or cold symptoms, chest pain, dyspnea, palpitations, dizziness, bloody or melanotic stool, hematemesis, dysuria/hematuria/urinary frequency/urinary symptoms, or any other symptoms or complaints. Patient denies known sick contact, recent travel abroad or recent antibiotic use. - Related Data Home Medications Medication Instructions Recorded Confirmed Tiotropium 2.5 Mcg/Puff [Spiriva 2 puff INHALATION RT-DAILY 08/25/21 02/17/22 Respimat 2.5 Mcg] Albuterol Sulfate [Albuterol 2 puff INHALATION RT-Q6H PRN 09/19/21 02/17/22 Sulfate Hfa] Atorvastatin Calcium [Lipitor] 40 mg PO HS 12/07/21 02/17/22 Omeprazole 20 mg PO DAILY 12/07/21 02/17/22 Ondansetron Odt [Zofran ODT] 4 mg PO BID PRN 12/07/21 02/17/22 QUEtiapine FUMARATE [SEROquel] 25 mg PO HS 12/07/21 02/17/22 metFORMIN HCL 1,000 mg PO BID 12/07/21 02/17/22 Budesonide/Formoterol Fumarate 2 puff INHALATION RT-BID 02/17/22 02/17/22 [Symbicort 160-4.5 Mcg Inhaler] Dapagliflozin Propanediol [Farxiga] 10 mg PO DAILY 02/17/22 02/17/22 Previous Rx's Medication Instructions Recorded Acetaminophen Tab [Tylenol] 650 mg PO Q6HR PRN #30 tab 09/30/21 Furosemide [Lasix] 40 mg PO BID@0900,1600 30 Days #60 09/30/21 tab Metoprolol Tartrate [Lopressor] 25 mg PO BID 30 Days #60 tab 09/30/21 Sennosides [Senokot] 8.6 mg PO BID PRN tab 09/30/21 Allergies Allergy/AdvReac Type Severity Reaction Status Date / Time Penicillins Allergy Severe Anaphylaxis Verified 07/31/22 18:46 TRACE METALS Allergy itching,rachna Uncoded 07/31/22 18:46 h Review of Systems ROS Statement: Those systems with pertinent positive or pertinent negative responses have been documented in the HPI. ROS Other: All systems not noted in ROS Statement are negative. Past Medical History Past Medical History: Chest Pain / Angina, COPD, Diabetes Mellitus, GERD/Reflux, Hyperlipidemia, Hypertension, Osteoarthritis (OA), Skin Disorder, Sleep Apnea/CPAP/BIPAP Additional Past Medical History / Comment(s): Diagnosed with mild pancreatitis on 01/22/19, NIDDM type II, neuropathy bilateral hands/legs/feet, arthritis in multiple joints, bilateral carpal tunnel syndrome, gastric ulcer, ADRIANA-no longer uses device since wt loss, varicose veins, venous dermatitis. History of Any Multi-Drug Resistant Organisms: None Reported Past Surgical History: Adenoidectomy, Appendectomy, Bariatric Surgery, Cholecystectomy, Orthopedic Surgery, Tonsillectomy Additional Past Surgical History / Comment(s): 01/13/15 Lap laila en Y gastric bypass with lysis of adhesions, EGDs, colonoscopies, bilateral knee arthroscopy, bilateral knee replacements, D&C Past Anesthesia/Blood Transfusion Reactions: No Reported Reaction Additional Past Anesthesia/Blood Transfusion Reaction / Comment(s): Pt is slow to wake from anesthesia. She has received blood in past without reaction. Past Psychological History: Anxiety, Depression Smoking Status: Former smoker Past Alcohol Use History: None Reported Past Drug Use History: None Reported - Past Family History Mother Family Medical History: Cancer, Deep Vein Thrombosis (DVT) Additional Family Medical History / Comment(s): Mother had uterine cancer. Father Family Medical History: Congestive Heart Failure (CHF), Sleep Apnea/CPAP/BIPAP Additional Family Medical History / Comment(s): Father was an alcoholic. He of CHF at the age of 48yrs. Brother(s) Family Medical History: Coronary Artery Disease (CAD) General Exam Limitations: no limitations General appearance: alert, in no apparent distress Head exam: Present: normocephalic Eye exam: Present: normal appearance ENT exam: Present: normal oropharynx, mucous membranes moist Neck exam: Absent: tenderness, meningismus Respiratory exam: Present: normal lung sounds bilaterally. Absent: respiratory distress, wheezes, rales, rhonchi, stridor Cardiovascular Exam: Present: regular rate, normal rhythm, normal heart sounds, other (Normal radial pulses bilaterally) GI/Abdominal exam: Present: soft, normal bowel sounds, other (Mild generalized abdominal tenderness). Absent: distended, guarding, rebound Extremities exam: Absent: pedal edema Back exam: Absent: CVA tenderness (R), CVA tenderness (L) Neurological exam: Present: alert, oriented X3 Psychiatric exam: Present: normal affect, normal mood Skin exam: Present: warm, dry, intact, normal color Course Vital Signs 07/31/22 18:44 Temperature 100.6 F H Pulse Rate 104 H Respiratory 20 Rate Blood Pressure 105/76 O2 Sat by Pulse 95 Oximetry - Reevaluation(s) Reevaluation #1: 07/31/22 22:44 Case, H&P, test results and ED management thus far were discussed with Dr. Colbert. She accepts hospital admission. She has no further recommendations at this time. Medical Decision Making - Medical Decision Making Was pt. sent in by a medical professional or institution (, PA, QUALITY CONTROL TECH, urgent care, hospital, or fpc...) When possible be specific @ -No Did you speak to anyone other than the patient for history (EMS, parent, family, police, friend...)? What history was obtained from this source @ -No Did you review nursing and triage notes (agree or disagree)? Why? @ -I reviewed and agree with nursing and triage notes Were old charts reviewed (outside hosp., previous admission, EMS record, old EKG, old radiological studies, urgent care reports/EKG's, fpc records)? Report findings @ -No old charts were reviewed Differential Diagnosis (chest pain, altered mental status, abdominal pain women, abdominal pain men, vaginal bleeding, weakness, fever, dyspnea, syncope, headache, dizziness, GI bleed, back pain, seizure, CVA, palpatations, mental health, musculoskeletal)? @ -Nausea, vomiting, diarrhea, abdominal pain, colitis, enteritis, gastritis, GERD, gastroenteritis, inflammatory bowel disease, bowel obstruction, dehydration, electrolyte abnormality, fever, UTI, Covid, sepsis, viral illness EKG interpreted by me (3pts min.). @ -None done X-rays interpreted by me (1pt min.). @ -None done CT interpreted by me (1pt min.). @ -Patient's CT abdomen/pelvis was reviewed myself and shows no acute abnormality. I agree with the radiologist's interpretation as above. U/S interpreted by me (1pt. min.). @ -None done What testing was considered but not performed or refused? (CT, X-rays, U/S, labs)? Why? @ -None What meds were considered but not given or refused? Why? @ -None Did you discuss the management of the patient with other professionals (professionals i.e. , PA, QUALITY CONTROL TECH, lab, RT, psych nurse, social media editor, cryptographic machine operator, teacher, founder chairman and chief creative officer, piano case and bench assembler)? Give summary @ -No Was smoking cessation discussed for >3mins.? @ -No Was critical care preformed (if so, how long)? @ -No Were there social determinants of health that impacted care today? How? (Homelessness, low income, unemployed, alcoholism, drug addiction, transportation, low edu. Level, literacy, decrease access to med. care, long-term, rehab)? @ -No Was there de-escalation of care discussed even if they declined (Discuss DNR or withdrawal of care, Hospice)? DNR status @ -No What co-morbidities impacted this encounter? (DM, HTN, Smoking, COPD, CAD, Cancer, CVA, ARF, Chemo, Hep., AIDS, mental health diagnosis, sleep apnea, morbid obesity)? @ -None Was patient admitted / discharged? Hospital course, mention meds given and route, prescriptions, significant lab abnormalities, going to OR and other pertinent info. @ -Patient has been treated with IV fluids, antiemetic medication and electrolyte repletion in the ED. Patient has a soft and nonsurgical abdominal exam. Patient has a normal WBC count and a negative CT abdomen/pelvis. Given the patient's electrolyte disturbances, will admit the patient to the hospital for continued electrolyte repletion. Patient has also been treated with a dose of IV Rocephin for suspected UTI given her UA findings and low-grade fever. Patient is aware of her test results, and she agrees with hospital admission at this time. Dr. Colbert has accepted hospital admission. Undiagnosed new problem with uncertain prognosis? @ -No Drug Therapy requiring intensive monitoring for toxicity (Heparin, Nitro, Insulin, Cardizem)? @ -No Were any procedures done? @ -No Diagnosis/symptom? @ -Hypokalemia and hypomagnesemia Acute, or Chronic, or Acute on Chronic? @ -default Uncomplicated (without systemic symptoms) or Complicated (systemic symptoms)? @ -default Side effects of treatment? @ -No Exacerbation, Progression, or Severe Exacerbation? @ -No Poses a threat to life or bodily function? How? (Chest pain, [place], [place], pneumonia, PE, COPD, DKA, ARF, appy, cholecystitis, CVA, Diverticulitis, Homicidal, Suicidal, threat to staff... and all critical care pts) @ -No Diagnosis/symptom? @ -Abdominal pain, nausea, vomiting and diarrhea Acute, or Chronic, or Acute on Chronic? @ -Acute Uncomplicated (without systemic symptoms) or Complicated (systemic symptoms)? @ -default Side effects of treatment? @ -none Exacerbation, Progression, or Severe Exacerbation] @ -no Poses a threat to life or bodily function? @ -no - Lab Data Result diagrams: 07/31/22 19:56 07/31/22 19:57 Lab Results 07/31/22 07/31/22 07/31/22 Range/Units 19:56 19:56 19:56 WBC 8.2 (3.8-10.6) k/uL RBC 5.35 (3.80-5.40) m/uL Hgb 17.2 H (11.4-16.0) gm/dL Hct 51.4 H (34.0-46.0) % MCV 96.0 (80.0-100.0) fL MCH 32.2 (25.0-35.0) pg MCHC 33.5 (31.0-37.0) g/dL RDW 13.7 (11.5-15.5) % Plt Count 203 (150-450) k/uL MPV 8.8 Neutrophils % 70 % Lymphocytes % 18 % Monocytes % 8 % Eosinophils % 2 % Basophils % 0 % Neutrophils # 5.7 (1.3-7.7) k/uL Lymphocytes # 1.4 (1.0-4.8) k/uL Monocytes # 0.6 (0-1.0) k/uL Eosinophils # 0.2 (0-0.7) k/uL Basophils # 0.0 (0-0.2) k/uL Sodium (137-145) mmol/L Potassium (3.5-5.1) mmol/L Chloride (98-107) mmol/L Carbon Dioxide (22-30) mmol/L Anion Gap mmol/L BUN (7-17) mg/dL Creatinine (0.52-1.04) mg/dL Est GFR (CKD-EPI)AfAm (>60 ml/min/1.73 sqM) Est GFR (CKD-EPI)NonAf (>60 ml/min/1.73 sqM) Glucose (74-99) mg/dL Plasma Lactic Acid Bradly (0.7-2.0) mmol/L Calcium (8.4-10.2) mg/dL Magnesium (1.6-2.3) mg/dL Total Bilirubin (0.2-1.3) mg/dL AST (14-36) U/L ALT (4-34) U/L Alkaline Phosphatase (38-126) U/L Total Protein (6.3-8.2) g/dL Albumin (3.5-5.0) g/dL Lipase (23-300) U/L Urine Color Yellow Urine Appearance Cloudy H (Clear) Urine pH 6.0 (5.0-8.0) Ur Specific [place] >1.050 H (1.001-1.035) Urine Protein 1+ H (Negative) Urine Glucose (UA) 1+ H (Negative) Urine Ketones Negative (Negative) Urine Blood Trace H (Negative) Urine Nitrite Negative (Negative) Urine Bilirubin Negative (Negative) Urine Urobilinogen <2.0 (<2.0) mg/dL Ur Leukocyte Esterase Large H (Negative) Urine RBC 152 H (0-5) /hpf Urine WBC 30 H (0-5) /hpf Ur Squamous Epith Cells 12 H (0-4) /hpf Urine Bacteria Rare H (None) /hpf Urine Mucus Rare H (None) /hpf Coronavirus (PCR) Not Detected (Not Detectd) 07/31/22 07/31/22 07/31/22 Range/Units 19:57 19:57 19:57 WBC (3.8-10.6) k/uL RBC (3.80-5.40) m/uL Hgb (11.4-16.0) gm/dL Hct (34.0-46.0) % MCV (80.0-100.0) fL MCH (25.0-35.0) pg MCHC (31.0-37.0) g/dL RDW (11.5-15.5) % Plt Count (150-450) k/uL MPV Neutrophils % % Lymphocytes % % Monocytes % % Eosinophils % % Basophils % % Neutrophils # (1.3-7.7) k/uL Lymphocytes # (1.0-4.8) k/uL Monocytes # (0-1.0) k/uL Eosinophils # (0-0.7) k/uL Basophils # (0-0.2) k/uL Sodium 139 (137-145) mmol/L Potassium 2.6 L* (3.5-5.1) mmol/L Chloride 103 (98-107) mmol/L Carbon Dioxide 25 (22-30) mmol/L Anion Gap 11 mmol/L BUN 23 H (7-17) mg/dL Creatinine 0.94 (0.52-1.04) mg/dL Est GFR (CKD-EPI)AfAm 73 (>60 ml/min/1.73 sqM) Est GFR (CKD-EPI)NonAf 63 (>60 ml/min/1.73 sqM) Glucose 180 H (74-99) mg/dL Plasma Lactic Acid Bradly 1.6 (0.7-2.0) mmol/L Calcium 9.2 (8.4-10.2) mg/dL Magnesium 1.1 L (1.6-2.3) mg/dL Total Bilirubin 0.9 (0.2-1.3) mg/dL AST 23 (14-36) U/L ALT 17 (4-34) U/L Alkaline Phosphatase 141 H (38-126) U/L Total Protein 7.2 (6.3-8.2) g/dL Albumin 3.9 (3.5-5.0) g/dL Lipase 62 (23-300) U/L Urine Color Urine Appearance (Clear) Urine pH (5.0-8.0) Ur Specific Cope (1.001-1.035) Urine Protein (Negative) Urine Glucose (UA) (Negative) Urine Ketones (Negative) Urine Blood (Negative) Urine Nitrite (Negative) Urine Bilirubin (Negative) Urine Urobilinogen (<2.0) mg/dL Ur Leukocyte Esterase (Negative) Urine RBC (0-5) /hpf Urine WBC (0-5) /hpf Ur Squamous Epith Cells (0-4) /hpf Urine Bacteria (None) /hpf Urine Mucus (None) /hpf Coronavirus (PCR) (Not Detectd) - Radiology Data CT abdomen/pelvis with IV contrast: 1. No acute intracranial or intrapelvic process to correlate with patient's reported symptoms. 2. Renal cysts and other incidental findings as detailed above. Disposition Clinical Impression: Nausea and vomiting, Diarrhea, Hypokalemia, Hypomagnesemia, UTI (urinary tract infection) Disposition: ADMITTED IP TO THIS HOSP Condition: Stable Is patient prescribed a controlled substance at d/c from ED?: No Referrals: Mamadou Gerard DO [Primary Care Provider] - 1-2 days Time of Disposition: 22:46
[2022-07-31] MEDS ORDERED: ONDANSETRON 4 MG/2 ML VIAL IVP STA (19:52)
[2022-07-31] MEDS ORDERED: SODIUM CHLORIDE 0.9% 1,000 ML IV STA (19:52)
[2022-07-31 20:16] LABS: Basophils % (A) 0 %; Eosinophils # (A) 0.2 k/uL (0-0.7); Eosinophils % (A) 2 %; HCT 51.4 % (34.0-46.0); HGB 17.2 gm/dL (11.4-16.0); Lymphocytes # (A) 1.4 k/uL (1.0-4.8); Lymphocytes % (A) 18 %; MCH 32.2 pg (25.0-35.0); MCHC 33.5 g/dL (31.0-37.0); Mean Platelet Volume 8.8; Monocytes # (A) 0.6 k/uL (0-1.0); Monocytes % (A) 8 %; Neutrophils # (A) 5.7 k/uL (1.3-7.7); Neutrophils % (A) 70 %; Platelet Count 203 k/uL (150-450); RBC 5.35 m/uL (3.80-5.40); RDW 13.7 % (11.5-15.5); WBC 8.2 k/uL (3.8-10.6)
[2022-07-31 20:31] LABS: Albumin 3.9 g/dL (3.5-5.0); Calcium 9.2 mg/dL (8.4-10.2); Total Bilirubin 0.9 mg/dL (0.2-1.3); Total Protein 7.2 g/dL (6.3-8.2)
[2022-07-31 20:54] LABS: Potassium 2.6 mmol/L (3.5-5.1)
[2022-07-31] MEDS ORDERED: POTASSIUM CHLORIDE ER 20 MEQ TAB.ER PO STA (20:55)
[2022-07-31] MEDS ORDERED: POTASSIUM CHLORIDE 20 MEQ in WATER FOR INJECTION 1 100ML.BAG IVPB STA (20:56)
--- NOTE | 2022-07-31 22:11 | CT ---
EXAMINATION TYPE: CT abdomen pelvis w con CT DLP: 1188.8 mGycm, Automated exposure control for dose reduction was used. DATE OF EXAM: 07/31/2022 9:51 PM COMPARISON: CTA chest 09/21/2021 CT abdomen pelvis 03/31/2015, CT abdomen pelvis 02/18/2017 CLINICAL INDICATION:Female, 66 years old with history of abdominal pain, vomiting; Abdominal pain. Vo miting. TECHNIQUE: Axial CT of the abdomen and pelvis. Sagittal and coronal reformats were created on a [employer] (ABAM) workstation. Contrast used:100cc mL of Isovue 300 with IV Contrast, Oral contrast used: without Oral Contrast FINDINGS: LOWER CHEST: Unremarkable ABDOMEN LIVER: Unremarkable GALLBLADDER AND BILE DUCTS: Gallbladder is not seen. Mild intra and extrahepatic biliary ductal dilat ation, not unexpected in a postcholecystectomy patient. PANCREAS: Atrophic parenchyma. Pancreatic duct is normal in appearance. SPLEEN: Unremarkable. ADRENAL GLANDS: Right adrenal nodule measures 12 mm, previously characterized as an adrenal adenoma. Left adrenal gland is normal.. KIDNEYS AND URETERS: No evidence of hydronephrosis or renal calculus. The ureters are unremarkable. Right renal cyst. Left upper pole hypodensity is too small to adequately characterize. PELVIS BLADDER: Unremarkable REPRODUCTIVE: Unremarkable. ABDOMEN & PELVIS STOMACH AND BOWEL: Postsurgical changes from prior Chinedu-en-Y bypass. Small hiatal hernia. No evidence of bowel obstruction. Liquid stool seen throughout the colon. Appendix is not well seen. PERITONEUM: No evidence of pneumoperitoneum or free fluid. VASCULATURE: Mild aortobiiliac calcified atherosclerosis. MUSCULOSKELETAL: Grade 1 anterolisthesis of L5 on S1. Multilevel degenerative changes of the thoracol umbar spine. Multiple posterior disc osteophytes contributing to at least mild central spinal canal s tenosis. LYMPH NODES: No gross evidence for lymphadenopathy. SOFT TISSUE/ABDOMINAL WALL: Unremarkable IMPRESSION: 1. No acute intra-abdominal or intrapelvic process to correlate with patient's reported symptoms. 2. Renal cysts and other incidental findings as detailed above.
[2022-07-31 22:16] LABS: Appearance,Urine Cloudy (Clear); Bacteria,Urine Rare /hpf; Bilirubin,Urine Negative (Negative); Blood,Urine Trace (Negative); Color,Urine Yellow; Glucose,Urine (UA) 1+ (Negative); Ketones,Urine Negative (Negative); Leukocyte Esterase,Urine Large (Negative); Mucus,Urine Rare /hpf; Nitrite,Urine Negative (Negative); Protein,Urine 1+ (Negative); RBC,Urine 152 /hpf (0-5); Squamous Epithelial Cell,Urine 12 /hpf (0-4); Urobilinogen,Urine <2.0 mg/dL (<2.0); WBC,Urine 30 /hpf (0-5)
[2022-07-31 22:19] LABS: Specific Gravity,Urine >1.050 (1.001-1.035)
[2022-07-31] MEDS ORDERED: ONDANSETRON 4 MG/2 ML VIAL IVP PRN (22:46)
[2022-07-31] MEDS ORDERED: NALOXONE 0.4 MG/ML 1 ML VIAL IV PRN (22:46)
[2022-07-31] MEDS: SODIUM CHLORIDE 0.9% 1,000 ML IV SCH (23:00)
[2022-07-31] MEDS: MAGNESIUM SULFATE-D5W PMX 1 GM in DEXTROSE/WATER 1 100ML.BAG IVPB SCH (23:55)
[2022-08-01] MEDS: MAGNESIUM SULFATE-D5W PMX 1 GM in DEXTROSE/WATER 1 100ML.BAG IVPB SCH (01:41)
--- NOTE | 2022-08-01 10:50 | P.GSCN ---
History of Present Illness Consult date: 08/01/22 Reason for Consult: Abdominal pain, diarrhea History of present illness: Is a 66-year-old female who's made through the emergency room with complaints of dull pain and diarrhea. Patient states she had some crampy diarrhea which cause some abdominal pain. The pain is currently resolved. She has no significant abdominal pain currently. Past Medical History Past Medical History: Chest Pain / Angina, COPD, Diabetes Mellitus, GERD/Reflux, Hyperlipidemia, Hypertension, Osteoarthritis (OA), Skin Disorder, Sleep Apnea/CPAP/BIPAP Additional Past Medical History / Comment(s): Diagnosed with mild pancreatitis on 01/22/19, NIDDM type II, neuropathy bilateral hands/legs/feet, arthritis in multiple joints, bilateral carpal tunnel syndrome, gastric ulcer, ADRIANA-no longer uses device since wt loss, varicose veins, venous dermatitis. History of Any Multi-Drug Resistant Organisms: None Reported Past Surgical History: Adenoidectomy, Appendectomy, Bariatric Surgery, Cholecystectomy, Orthopedic Surgery, Tonsillectomy Additional Past Surgical History / Comment(s): 01/13/15 Lap laila en Y gastric bypass with lysis of adhesions, EGDs, colonoscopies, bilateral knee arthroscopy, bilateral knee replacements, D&C Past Anesthesia/Blood Transfusion Reactions: No Reported Reaction Additional Past Anesthesia/Blood Transfusion Reaction / Comm: Pt is slow to wake from anesthesia. She has received blood in past without reaction. Past Psychological History: Anxiety, Depression Additional Psychological History / Comment(s): Pt resides with her SO. She uses a cane and walker if needed. She has never had a p d driver's license- her SO takes her to [employer]. Smoking Status: Never smoker Past Alcohol Use History: None Reported Additional Past Alcohol Use History / Comment(s): Pt started smoking in 1969 and quit smoking in 2009 Past Drug Use History: None Reported - Past Family History Mother Family Medical History: Cancer, Deep Vein Thrombosis (DVT) Additional Family Medical History / Comment(s): Mother had uterine cancer. Father Family Medical History: Congestive Heart Failure (CHF), Sleep Apnea/CPAP/BIPAP Additional Family Medical History / Comment(s): Father was an alcoholic. He of CHF at the age of 48yrs. Brother(s) Family Medical History: Coronary Artery Disease (CAD) Medications and Allergies Home Medications Medication Instructions Recorded Confirmed Type Tiotropium 2.5 Mcg/Puff [Spiriva 2 puff INHALATION RT-DAILY 08/25/21 02/17/22 History Respimat 2.5 Mcg] Albuterol Sulfate [Albuterol 2 puff INHALATION RT-Q6H PRN 09/19/21 02/17/22 History Sulfate Hfa] Acetaminophen Tab [Tylenol] 650 mg PO Q6HR PRN #30 tab 09/30/21 02/17/22 Rx Furosemide [Lasix] 40 mg PO BID@0900,1600 30 Days #60 09/30/21 02/17/22 Rx tab Metoprolol Tartrate [Lopressor] 25 mg PO BID 30 Days #60 tab 09/30/21 02/17/22 Rx Sennosides [Senokot] 8.6 mg PO BID PRN tab 09/30/21 02/17/22 Rx Atorvastatin Calcium [Lipitor] 40 mg PO HS 12/07/21 02/17/22 History Omeprazole 20 mg PO DAILY 12/07/21 02/17/22 History Ondansetron Odt [Zofran ODT] 4 mg PO BID PRN 12/07/21 02/17/22 History QUEtiapine FUMARATE [SEROquel] 25 mg PO HS 12/07/21 02/17/22 History metFORMIN HCL 1,000 mg PO BID 12/07/21 02/17/22 History Budesonide/Formoterol Fumarate 2 puff INHALATION RT-BID 02/17/22 02/17/22 History [Symbicort 160-4.5 Mcg Inhaler] Dapagliflozin Propanediol [Farxiga] 10 mg PO DAILY 02/17/22 02/17/22 History Allergies Allergy/AdvReac Type Severity Reaction Status Date / Time Penicillins Allergy Severe Anaphylaxis Verified 07/31/22 18:46 TRACE METALS Allergy itching,rachna Uncoded 07/31/22 18:46 h Surgical - Exam Vital Signs Temp Pulse Resp BP Pulse Ox 100.6 F H 104 H 20 105/76 95 07/31/22 18:44 07/31/22 18:44 07/31/22 18:44 07/31/22 18:44 07/31/22 18:44 - General well developed, well nourished, no distress - Eyes PERRL - ENT normal pinna - Neck no masses - Respiratory normal expansion - Cardiovascular Rhythm: regular - Abdomen Abdomen: soft, non tender Results - Labs 07/31/22 19:56 08/01/22 01:38 Abnormal Lab Results - Last 24 Hours (Table) 07/31/22 07/31/22 07/31/22 Range/Units 19:56 19:56 19:57 Hgb 17.2 H (11.4-16.0) gm/dL Hct 51.4 H (34.0-46.0) % Potassium 2.6 L* (3.5-5.1) mmol/L BUN 23 H (7-17) mg/dL Glucose 180 H (74-99) mg/dL Magnesium (1.6-2.3) mg/dL Alkaline Phosphatase 141 H (38-126) U/L Urine Appearance Cloudy H (Clear) Ur Specific [place] >1.050 H (1.001-1.035) Urine Protein 1+ H (Negative) Urine Glucose (UA) 1+ H (Negative) Urine Blood Trace H (Negative) Ur Leukocyte Esterase Large H (Negative) Urine RBC 152 H (0-5) /hpf Urine WBC 30 H (0-5) /hpf Ur Squamous Epith Cells 12 H (0-4) /hpf Urine Bacteria Rare H (None) /hpf Urine Mucus Rare H (None) /hpf 07/31/22 08/01/22 Range/Units 19:57 01:38 Hgb (11.4-16.0) gm/dL Hct (34.0-46.0) % Potassium 2.8 L (3.5-5.1) mmol/L BUN (7-17) mg/dL Glucose (74-99) mg/dL Magnesium 1.1 L (1.6-2.3) mg/dL Alkaline Phosphatase (38-126) U/L Urine Appearance (Clear) Ur Specific [place] (1.001-1.035) Urine Protein (Negative) Urine Glucose (UA) (Negative) Urine Blood (Negative) Ur Leukocyte Esterase (Negative) Urine RBC (0-5) /hpf Urine WBC (0-5) /hpf Ur Squamous Epith Cells (0-4) /hpf Urine Bacteria (None) /hpf Urine Mucus (None) /hpf Diabetes panel 07/31/22 08/01/22 Range/Units 19:57 01:38 Sodium 139 (137-145) mmol/L Potassium 2.6 L* 2.8 L (3.5-5.1) mmol/L Chloride 103 (98-107) mmol/L Carbon Dioxide 25 (22-30) mmol/L BUN 23 H (7-17) mg/dL Creatinine 0.94 (0.52-1.04) mg/dL Glucose 180 H (74-99) mg/dL Calcium 9.2 (8.4-10.2) mg/dL AST 23 (14-36) U/L ALT 17 (4-34) U/L Alkaline Phosphatase 141 H (38-126) U/L Total Protein 7.2 (6.3-8.2) g/dL Albumin 3.9 (3.5-5.0) g/dL Calcium panel 07/31/22 Range/Units 19:57 Calcium 9.2 (8.4-10.2) mg/dL Albumin 3.9 (3.5-5.0) g/dL Pituitary panel 07/31/22 08/01/22 Range/Units 19:57 01:38 Sodium 139 (137-145) mmol/L Potassium 2.6 L* 2.8 L (3.5-5.1) mmol/L Chloride 103 (98-107) mmol/L Carbon Dioxide 25 (22-30) mmol/L BUN 23 H (7-17) mg/dL Creatinine 0.94 (0.52-1.04) mg/dL Glucose 180 H (74-99) mg/dL Calcium 9.2 (8.4-10.2) mg/dL Adrenal panel 07/31/22 08/01/22 Range/Units 19:57 01:38 Sodium 139 (137-145) mmol/L Potassium 2.6 L* 2.8 L (3.5-5.1) mmol/L Chloride 103 (98-107) mmol/L Carbon Dioxide 25 (22-30) mmol/L BUN 23 H (7-17) mg/dL Creatinine 0.94 (0.52-1.04) mg/dL Glucose 180 H (74-99) mg/dL Calcium 9.2 (8.4-10.2) mg/dL Total Bilirubin 0.9 (0.2-1.3) mg/dL AST 23 (14-36) U/L ALT 17 (4-34) U/L Alkaline Phosphatase 141 H (38-126) U/L Total Protein 7.2 (6.3-8.2) g/dL Albumin 3.9 (3.5-5.0) g/dL - Imaging CT scan - abdomen: report reviewed (No acute abnormalities) Assessment and Plan Assessment: 66-year-old female with history of some abdominal pain and diarrhea. Patient will be observed. She may require colonoscopy.
[2022-08-01 12:14] LABS: Glucose,Whole Blood 163 mg/dL (70-110)
[2022-08-01] MEDS: POTASSIUM CHLORIDE 10 MEQ in WATER FOR INJECTION 1 100ML.BAG IVPB SCH ×6 (12:22→17:58)
[2022-08-01] MEDS: INSULIN ASPART (NovoLOG) 100 UNIT/ML VIAL SQ SCH ×3 (12:24→20:42)
[2022-08-01] MEDS: SODIUM CHLORIDE 0.9% 1,000 ML IV SCH (12:25)
[2022-08-01] MEDS ORDERED: ACETAMINOPHEN TAB 325 MG TAB PO PRN (14:26)
[2022-08-01] MEDS ORDERED: ALBUTEROL NEBULIZED 2.5 MG/3 ML INHALATION PRN (14:26)
[2022-08-01] MEDS ORDERED: SENNOSIDES 8.6 MG TAB PO PRN (14:26)
[2022-08-01] MEDS ORDERED: ARTIFICIAL TEARS-HYPROMELLOSE DROPS 15 ML BTL BOTH EYES PRN (14:26)
[2022-08-01] MEDS ORDERED: ONDANSETRON ODT 4 MG TAB PO PRN (14:26)
[2022-08-01] MEDS ORDERED: Potassium Replacement Protocol 1 EACH MISC MISCELLANE PRN ×2 (17:09→22:15)
[2022-08-01 17:19] LABS: Glucose,Whole Blood 131 mg/dL (70-110)
[2022-08-01] MEDS: PANTOPRAZOLE 40 MG TABLET PO SCH (17:59)
[2022-08-01] MEDS: metFORMIN 500 MG TAB PO SCH (17:59)
--- NOTE | 2022-08-01 19:02 | P.HPIM ---
History of Present Illness H&P Date: 08/01/22 Chief Complaint: Nausea/vomiting/diarrhea Patient presents to the ED with her significant other for evaluation. Patient states that she has had generalized abdominal pain, nausea and watery diarrhea for the past 2 days. Patient also states that she vomited once yesterday, and she states that she has had "chills" at times today. Patient denies taking any antipyretic medication today. Patient denies trauma or injury, headache, neck pain or stiffness, sore throat, cough or cold symptoms, chest pain, dyspnea, palpitations, dizziness, bloody or melanotic stool, hematemesis, dysuria/hematuria/urinary frequency/urinary symptoms, or any other symptoms or complaints. Patient denies known sick contact, recent travel abroad or recent antibiotic use. Workup completed in ED including CT of the abdomen does not reveal any acute intra-abdominal or intrapelvic process; incidental finding of renal cyst UA is positive; blood work reveals low potassium and magnesium levels Review of Systems REVIEW OF SYSTEMS: CONSTITUTIONAL: No fever, no malaise, no fatigue. HEENT: No recent visual problems or hearing problems. Denied any sore throat. CARDIOVASCULAR: No chest pain, orthopnea, PND, no palpitations, no syncope. PULMONARY: No shortness of breath, no cough, no hemoptysis. GASTROINTESTINAL: No diarrhea, no nausea, no vomiting, no abdominal pain. NEUROLOGICAL: No headaches, no weakness, no numbness. HEMATOLOGICAL: Denies any bleeding or petechiae. GENITOURINARY: Denies any burning micturition, frequency, or urgency. MUSCULOSKELETAL/RHEUMATOLOGICAL: Denies any joint pain, swelling, or any muscle pain. ENDOCRINE: Denies any polyuria or polydipsia. The rest of the 14-point review of systems is negative. Past Medical History Past Medical History: Chest Pain / Angina, COPD, Diabetes Mellitus, GERD/Reflux, Hyperlipidemia, Hypertension, Osteoarthritis (OA), Skin Disorder, Sleep Apnea/CPAP/BIPAP Additional Past Medical History / Comment(s): Diagnosed with mild pancreatitis on 01/22/19, NIDDM type II, neuropathy bilateral hands/legs/feet, arthritis in multiple joints, bilateral carpal tunnel syndrome, gastric ulcer, ADRIANA-no longer uses device since wt loss, varicose veins, venous dermatitis. History of Any Multi-Drug Resistant Organisms: None Reported Past Surgical History: Adenoidectomy, Appendectomy, Bariatric Surgery, Cholecystectomy, Orthopedic Surgery, Tonsillectomy Additional Past Surgical History / Comment(s): 01/13/15 Lap laila en Y gastric bypass with lysis of adhesions, EGDs, colonoscopies, bilateral knee arthroscopy, bilateral knee replacements, D&C Past Anesthesia/Blood Transfusion Reactions: No Reported Reaction Additional Past Anesthesia/Blood Transfusion Reaction / Comment(s): Pt is slow to wake from anesthesia. She has received blood in past without reaction. Past Psychological History: Anxiety, Depression Smoking Status: Former smoker Past Alcohol Use History: None Reported Past Drug Use History: None Reported - Past Family History Mother Family Medical History: Cancer, Deep Vein Thrombosis (DVT) Additional Family Medical History / Comment(s): Mother had uterine cancer. Father Family Medical History: Congestive Heart Failure (CHF), Sleep Apnea/CPAP/BIPAP Additional Family Medical History / Comment(s): Father was an alcoholic. He of CHF at the age of 48yrs. Brother(s) Family Medical History: Coronary Artery Disease (CAD) Medications and Allergies Home Medications Medication Instructions Recorded Confirmed Type Tiotropium 2.5 Mcg/Puff [Spiriva 2 puff INHALATION RT-DAILY 08/25/21 08/01/22 History Respimat 2.5 Mcg] Albuterol Sulfate [Albuterol 2 puff INHALATION RT-Q6H PRN 09/19/21 08/01/22 History Sulfate Hfa] Acetaminophen Tab [Tylenol] 650 mg PO Q6HR PRN #30 tab 09/30/21 08/01/22 Rx Metoprolol Tartrate [Lopressor] 25 mg PO BID 30 Days #60 tab 09/30/21 08/01/22 Rx Sennosides [Senokot] 8.6 mg PO BID PRN tab 09/30/21 08/01/22 Rx Atorvastatin Calcium [Lipitor] 40 mg PO HS 12/07/21 08/01/22 History Omeprazole 20 mg PO BID 12/07/21 08/01/22 History Ondansetron Odt [Zofran ODT] 4 mg PO BID PRN 12/07/21 08/01/22 History QUEtiapine FUMARATE [SEROquel] 25 mg PO HS 12/07/21 08/01/22 History metFORMIN HCL 1,000 mg PO BID 12/07/21 08/01/22 History Budesonide/Formoterol Fumarate 2 puff INHALATION RT-BID 02/17/22 08/01/22 History [Symbicort 160-4.5 Mcg Inhaler] Dapagliflozin Propanediol [Farxiga] 10 mg PO DAILY 02/17/22 08/01/22 History Carboxymethylcellulose Sodium 1 drop BOTH EYES QID PRN 08/01/22 08/01/22 History [Refresh Tears] Furosemide [Lasix] 40 mg PO DAILY 08/01/22 08/01/22 History Prednisolone Acetate/Pf 1 drop BOTH EYES BID 08/01/22 08/01/22 History [Prednisolone Acet 1% Eye Drop] sitaGLIPtin [Januvia] 100 mg PO DAILY 08/01/22 08/01/22 History Allergies Allergy/AdvReac Type Severity Reaction Status Date / Time Penicillins Allergy Severe Anaphylaxis Verified 08/01/22 13:47 cyclosporine [From Restasis] Allergy Rash/Hives Verified 08/01/22 13:47 TRACE METALS Allergy itching,rachna Uncoded 08/01/22 13:47 h Physical Exam Vitals: Vital Signs Temp Pulse Resp BP Pulse Ox 08/01/22 07:38 98 F 86 16 114/68 98 08/01/22 04:11 88 18 114/80 98 08/01/22 01:52 84 18 97/6 99 08/01/22 00:13 91 18 99/56 94 L 07/31/22 23:19 97 18 96/52 95 07/31/22 18:44 100.6 F H 104 H 20 105/76 95 Intake and Output 07/31/22 08/01/22 08/01/22 22:59 06:59 14:59 Other: Weight 86.183 kg - Constitutional General appearance: Present: average body habitus, cooperative, no acute distress - EENT Eyes: Present: anicteric sclerae, EOMI, PERRLA, normal appearance ENT: Present: hearing grossly normal, normal oropharynx Ears: bilateral: normal - Neck Neck: Present: normal ROM. Absent: lymphadenopathy, rigidity, thyromegaly Carotids: negative: bruit present Thyroid: bilateral: normal size, negative: enlarged, nodule - Respiratory Respiratory: bilateral: CTA, negative: rales, rhonchi, wheezing - Cardiovascular Rhythm: regular Heart sounds: normal: S1, S2 Abnormal Heart Sounds: Absent: systolic murmur, diastolic murmur - Gastrointestinal General gastrointestinal: Present: normal bowel sounds, soft. Absent: distended, organomegaly, tenderness - Genitourinary Genitourinary Comment(s): deferred - Integumentary Integumentary: Present: normal turgor. Absent: jaundiced, rash, ulcer - Neurologic Neurologic: Present: CNII-XII intact. Absent: focal deficits - Musculoskeletal Musculoskeletal: Present: gait normal, strength equal bilaterally - Psychiatric Psychiatric: Present: A&O x's 3, appropriate affect, intact judgment & insight Results CBC & Chem 7: 07/31/22 19:56 08/01/22 01:38 Labs: Abnormal Lab Results - Last 24 Hours (Table) 07/31/22 07/31/22 07/31/22 Range/Units 19:56 19:56 19:57 Hgb 17.2 H (11.4-16.0) gm/dL Hct 51.4 H (34.0-46.0) % Potassium 2.6 L* (3.5-5.1) mmol/L BUN 23 H (7-17) mg/dL Glucose 180 H (74-99) mg/dL Magnesium (1.6-2.3) mg/dL Alkaline Phosphatase 141 H (38-126) U/L Urine Appearance Cloudy H (Clear) Ur Specific [place] >1.050 H (1.001-1.035) Urine Protein 1+ H (Negative) Urine Glucose (UA) 1+ H (Negative) Urine Blood Trace H (Negative) Ur Leukocyte Esterase Large H (Negative) Urine RBC 152 H (0-5) /hpf Urine WBC 30 H (0-5) /hpf Ur Squamous Epith Cells 12 H (0-4) /hpf Urine Bacteria Rare H (None) /hpf Urine Mucus Rare H (None) /hpf 07/31/22 08/01/22 Range/Units 19:57 01:38 Hgb (11.4-16.0) gm/dL Hct (34.0-46.0) % Potassium 2.8 L (3.5-5.1) mmol/L BUN (7-17) mg/dL Glucose (74-99) mg/dL Magnesium 1.1 L (1.6-2.3) mg/dL Alkaline Phosphatase (38-126) U/L Urine Appearance (Clear) Ur Specific [place] (1.001-1.035) Urine Protein (Negative) Urine Glucose (UA) (Negative) Urine Blood (Negative) Ur Leukocyte Esterase (Negative) Urine RBC (0-5) /hpf Urine WBC (0-5) /hpf Ur Squamous Epith Cells (0-4) /hpf Urine Bacteria (None) /hpf Urine Mucus (None) /hpf Assessment and Plan Assessment: 1. Intractable nausea/vomiting/diarrhea - IV fluid hydration with normal saline; symptomatic treatment of nausea and vomiting; we will obtain C. diff toxin if patient continues to have diarrhea 2. UTI; patient is placed on IV Rocephin; monitor CBC, CRP and pro-calcitonin; further recommendations once urine culture results are available 3. Electrolyte imbalance; hypokalemia/hypomagnesemia; in his chair protection level of 2.6 with magnesium of 1.1; likely related to intractable vomiting and diarrhea - Patient is supplemented in ED; we will monitor electrolytes closely and make further supplementations; repeat potassium level is 2.8; we will supplement with 60 mEq of KCl IV; repeat magnesium levels 4. Mild renal injury; IV fluid hydration as indicated above; we will monitor strict PRINCESS's, daily weights, renal function and electrolytes; avoid nephrotoxins and hypotension 5. Hypertension; metoprolol 25 mg twice a day 6. Hyperlipidemia; Lipitor 40 mg by mouth daily at bedtime 7. Diabetes mellitus; patient takes Farxiga, metformin and Januvia at home; we will monitor Accu-Cheks every 6 hours is with insulin sliding scale 8. COPD; not in exacerbation; continue with home inhaler therapy
[2022-08-01] MEDS: SYMBICORT 160-4.5 MCG INHALER INHALATION SCH (19:52)
[2022-08-01 20:23] LABS: Glucose,Whole Blood 155 mg/dL (70-110)
[2022-08-01] MEDS: METOPROLOL TARTRATE 25 MG TAB PO SCH (20:34)
[2022-08-01] MEDS: prednisoLONE ACETATE 1% OPHTH DROPS 5 ML BTL BOTH EYES SCH (20:35)
[2022-08-01] MEDS ORDERED: ATORVASTATIN 40 MG TAB PO SCH (21:00)
[2022-08-01] MEDS ORDERED: QUEtiapine 25 MG TAB PO SCH (21:00)
[2022-08-01] MEDS: POTASSIUM CHLORIDE ER 20 MEQ TAB.ER PO SCH ×2 (22:22→23:17)
[2022-08-02 03:55] VITALS: RESP 16
[2022-08-02] MEDS: SODIUM CHLORIDE 0.9% 1,000 ML IV SCH (04:07)
[2022-08-02] MEDS: INSULIN ASPART (NovoLOG) 100 UNIT/ML VIAL SQ SCH ×2 (06:07→12:37)
[2022-08-02] MEDS: PANTOPRAZOLE 40 MG TABLET PO SCH (06:08)
[2022-08-02 06:09] LABS: Glucose,Whole Blood 72 mg/dL (70-110)
[2022-08-02] MEDS: metFORMIN 500 MG TAB PO SCH (06:40)
[2022-08-02] MEDS: SYMBICORT 160-4.5 MCG INHALER INHALATION SCH (08:46)
[2022-08-02] MEDS: IPRATROPIUM 0.5 MG/2.5 ML NEBU INHALATION SCH ×3 (08:46→16:30)
[2022-08-02] MEDS ORDERED: LINAGLIPTIN 5 MG TABLET PO SCH (09:00)
[2022-08-02] MEDS ORDERED: DAPAGLIFLOZIN PROPANEDIOL 10 MG TABLET PO SCH (09:00)
[2022-08-02] MEDS ORDERED: FUROSEMIDE 40 MG TAB PO SCH (09:00)
[2022-08-02 09:11] LABS: Basophils # (A) 0.03 X 10*3/uL (0.00-0.10); Basophils % (A) 0.6 %; Eosinophils # (A) 0.24 X 10*3/uL (0.04-0.35); Eosinophils % (A) 4.5 %; HGB 12.2 g/dL (12.0-15.0); Immature Grans, Automated 0.2 %; Lymphocytes # (A) 1.49 X 10*3/uL (0.90-5.00); MCH 31.7 pg (27.0-32.0); MCHC 32.1 g/dL (32.0-37.0); MCV 98.7 fL (80.0-97.0); Mean Platelet Volume 10.5 fL (9.5-12.2); Monocytes # (A) 0.66 X 10*3/uL (0.20-1.00); Monocytes % (A) 12.4 %; NRBC Per 100 WBC 0 /100 WBCS (0.0-0.0); Neutrophils # (A) 2.89 X 10*3/uL (1.80-7.70); Neutrophils % (A) 54.3 %; Platelet Count 150 X 10*3/uL (140-440); RBC 3.85 X 10*6/uL (4.10-5.20); RDW 14.2 % (11.5-14.5); WBC 5.32 X 10*3/uL (4.50-10.00)
--- NOTE | 2022-08-02 09:52 | P.PN ---
Progress Note - Text Progress Note Date: 08/02/22 Patient feels better today. She states her abdominal pain is improved. She's had no significant diarrhea. On exam vital signs are stable. Abdomen soft. Resolving diarrhea. Patient will have colonoscopy performed at some point. This may be done as outpatient.
[2022-08-02 10:03] LABS: African American GFR (CKD) 103.9 (60.0-200.0); Anion Gap 5.7 mmol/L (10.00-18.00); BUN/Creat Ratio 18.86 Ratio (12.00-20.00); Blood Urea Nitrogen 13.2 mg/dL (9.0-27.0); Calcium 7.7 mg/dL (8.7-10.3); Carbon Dioxide 21.3 mmol/L (20.0-27.5); Magnesium 1.5 mg/dL (1.5-2.4); Non-African American GFR(CKD) 89.7 (60.0-200.0); Potassium 4.4 mmol/L (3.5-5.5)
[2022-08-02] MEDS: prednisoLONE ACETATE 1% OPHTH DROPS 5 ML BTL BOTH EYES SCH (10:30)
[2022-08-02] MEDS: METOPROLOL TARTRATE 25 MG TAB PO SCH (10:31)
[2022-08-02 12:21] LABS: Glucose,Whole Blood 125 mg/dL (70-110)
[2022-08-02 12:25] VITALS: PULSE 84
[2022-08-02 15:16] VITALS: BP 101/67; TEMP 98.8
--- NOTE | 2022-08-06 22:04 | P.DS ---
Providers Date of admission: 07/31/22 22:47 Expected date of discharge: 08/02/22 Attending physician: Abby Colbert MD Primary care physician: [facility] Course: Patient presents to the ED with her significant other for evaluation. Patient states that she has had generalized abdominal pain, nausea and watery diarrhea for the past 2 days. Patient also states that she vomited once yesterday, and she states that she has had "chills" at times today. Patient denies taking any antipyretic medication today. Patient denies trauma or injury, headache, neck pain or stiffness, sore throat, cough or cold symptoms, chest pain, dyspnea, palpitations, dizziness, bloody or melanotic stool, hematemesis, dysuria/hematuria/urinary frequency/urinary symptoms, or any other symptoms or complaints. Patient denies known sick contact, recent travel abroad or recent antibiotic use. Workup completed in ED including CT of the abdomen does not reveal any acute intra-abdominal or intrapelvic process; incidental finding of renal cyst UA is positive; blood work reveals low potassium and magnesium levels 1. Intractable nausea/vomiting/diarrhea - IV fluid hydration with normal saline; symptomatic treatment of nausea and vomiting; we will obtain C. diff toxin if patient continues to have diarrhea 2. UTI; patient is placed on IV Rocephin; monitor CBC, CRP and pro-calcitonin; further recommendations once urine culture results are available 3. Electrolyte imbalance; hypokalemia/hypomagnesemia; in his chair protection level of 2.6 with magnesium of 1.1; likely related to intractable vomiting and diarrhea - Patient is supplemented in ED; we will monitor electrolytes closely and make further supplementations; repeat potassium level is 2.8; we will supplement with 60 mEq of KCl IV; repeat magnesium levels 4. Mild renal injury; IV fluid hydration as indicated above; we will monitor strict PRINCESS's, daily weights, renal function and electrolytes; avoid nephrotoxins and hypotension 5. Hypertension; metoprolol 25 mg twice a day 6. Hyperlipidemia; Lipitor 40 mg by mouth daily at bedtime 7. Diabetes mellitus; patient takes Farxiga, metformin and Januvia at home; we will monitor Accu-Cheks every 6 hours is with insulin sliding scale 8. COPD; not in exacerbation; continue with home inhaler therapy Resolving diarrhea. Patient will have colonoscopy performed at some point. This may be done as outpatient. Patient Condition at Discharge: Stable Plan - Discharge Summary Discharge Rx Participant: No New Discharge Prescriptions: Continue Tiotropium 2.5 Mcg/Puff [Spiriva Respimat 2.5 Mcg] 2 puff INHALATION RT-DAILY Albuterol Sulfate [Albuterol Sulfate Hfa] 2 puff INHALATION RT-Q6H PRN PRN Reason: Shortness Of Breath Metoprolol Tartrate [Lopressor] 25 mg PO BID 30 Days #60 tab metFORMIN HCL 1,000 mg PO BID Omeprazole 20 mg PO BID Atorvastatin Calcium [Lipitor] 40 mg PO HS Budesonide/Formoterol Fumarate [Symbicort 160-4.5 Mcg Inhaler] 2 puff INHALATION RT-BID Dapagliflozin Propanediol [Farxiga] 10 mg PO DAILY Furosemide [Lasix] 40 mg PO DAILY sitaGLIPtin [Januvia] 100 mg PO DAILY Sennosides [Senokot] 8.6 mg PO BID PRN tab PRN Reason: Constipation Acetaminophen Tab [Tylenol] 650 mg PO Q6HR PRN #30 tab PRN Reason: Fever and/ or MILD Pain QUEtiapine FUMARATE [SEROquel] 25 mg PO HS Ondansetron Odt [Zofran ODT] 4 mg PO BID PRN PRN Reason: Nausea Carboxymethylcellulose Sodium [Refresh Tears] 1 drop BOTH EYES QID PRN PRN Reason: Dry Eye(S) Prednisolone Acetate/Pf [Prednisolone Acet 1% Eye Drop] 1 drop BOTH EYES BID Discharge Medication List Tiotropium 2.5 Mcg/Puff [Spiriva Respimat 2.5 Mcg] 2 puff INHALATION RT-DAILY 08/25/21 [History] Albuterol Sulfate [Albuterol Sulfate Hfa] 2 puff INHALATION RT-Q6H PRN 09/19/21 [History] Acetaminophen Tab [Tylenol] 650 mg PO Q6HR PRN #30 tab 09/30/21 [Rx] Metoprolol Tartrate [Lopressor] 25 mg PO BID 30 Days #60 tab 09/30/21 [Rx] Sennosides [Senokot] 8.6 mg PO BID PRN tab 09/30/21 [Rx] Atorvastatin Calcium [Lipitor] 40 mg PO HS 12/07/21 [History] Omeprazole 20 mg PO BID 12/07/21 [History] Ondansetron Odt [Zofran ODT] 4 mg PO BID PRN 12/07/21 [History] QUEtiapine FUMARATE [SEROquel] 25 mg PO HS 12/07/21 [History] metFORMIN HCL 1,000 mg PO BID 12/07/21 [History] Budesonide/Formoterol Fumarate [Symbicort 160-4.5 Mcg Inhaler] 2 puff INHALATION RT-BID 02/17/22 [History] Dapagliflozin Propanediol [Farxiga] 10 mg PO DAILY 02/17/22 [History] Carboxymethylcellulose Sodium [Refresh Tears] 1 drop BOTH EYES QID PRN 08/01/22 [History] Furosemide [Lasix] 40 mg PO DAILY 08/01/22 [History] Prednisolone Acetate/Pf [Prednisolone Acet 1% Eye Drop] 1 drop BOTH EYES BID 08/01/22 [History] sitaGLIPtin [Januvia] 100 mg PO DAILY 08/01/22 [History] Follow up Appointment(s)/Referral(s): Mamadou Gerard DO [Primary Care Provider] - 1-2 days Patient Instructions/Handouts: Hypokalemia (DC), Acute Nausea and Vomiting (DC) Discharge Disposition: HOME SELF-CARE
== END 2022-08-02 16:45 | disposition home or self-care (01) ==
LOC: EC 18:40 → 6NMEDSUR 22:47
PROVIDERS: ADMIT Internal Medicine; ATTEND Internal Medicine
DX: N39.0 Urinary tract infection, site not specified (principal); R11.2 Nausea with vomiting, unspecified; R19.7 Diarrhea, unspecified; S37.009A Unspecified injury of unspecified kidney, initial encounter; E87.8 Other disorders of electrolyte and fluid balance, not elsewhere classified; E87.6 Hypokalemia; E83.42 Hypomagnesemia; I10 Essential (primary) hypertension; E78.5 Hyperlipidemia, unspecified; Z20.822 Contact with and (suspected) exposure to COVID-19; E11.40 Type 2 diabetes mellitus with diabetic neuropathy, unspecified; J44.9 Chronic obstructive pulmonary disease, unspecified; M19.90 Unspecified osteoarthritis, unspecified site; K21.9 Gastro-esophageal reflux disease without esophagitis; Z87.19 Personal history of other diseases of the digestive system; G56.01 Carpal tunnel syndrome, right upper limb; Z87.11 Personal history of peptic ulcer disease; I83.90 Asymptomatic varicose veins of unspecified lower extremity; Z90.49 Acquired absence of other specified parts of digestive tract; Z98.84 Bariatric surgery status; Z98.890 Other specified postprocedural states; Z96.653 Presence of artificial knee joint, bilateral; F41.9 Anxiety disorder, unspecified; F32.A Depression, unspecified; Z87.891 Personal history of nicotine dependence; Z82.49 Family history of ischemic heart disease and other diseases of the circulatory system; Z80.49 Family history of malignant neoplasm of other genital organs; Z81.1 Family history of alcohol abuse and dependence; Z88.0 Allergy status to penicillin; Z79.84 Long term (current) use of oral hypoglycemic drugs; Z79.51 Long term (current) use of inhaled steroids; Z79.899 Other long term (current) drug therapy; Z88.8 Allergy status to other drugs, medicaments and biological substances; Z91.09 Other allergy status, other than to drugs and biological substances
CPT/HCPCS: 96361 ×2; 96366 ×3; 96375; 96365; 96367 ×2; 99285; 36415; 94640 ×3; 93005; 80053; 80048; 83605; 83690; 83735 ×2; 84132; 85025 ×2; 81001; 87040; 87635; 74177; G0378 ×3; J3480 ×2; J2405 ×2; J0696; J3475 ×2; Q9967

== ENCOUNTER 2023-04-13 11:07 | Emergency (ER) | payer MEDICARE, OTHER ==
[2023-04-13 11:15] VITALS: RESP 18; TEMP 98.6
[2023-04-13 11:45] LABS: Basophils % (A) 1 %; Eosinophils # (A) 0.2 k/uL (0-0.7); Eosinophils % (A) 3 %; HCT 43.7 % (34.0-46.0); HGB 14.5 gm/dL (11.4-16.0); Lymphocytes # (A) 1.3 k/uL (1.0-4.8); Lymphocytes % (A) 21 %; MCH 32.1 pg (25.0-35.0); MCHC 33.2 g/dL (31.0-37.0); MCV 96.9 fL (80.0-100.0); Mean Platelet Volume 8.8; Monocytes # (A) 0.4 k/uL (0-1.0); Monocytes % (A) 6 %; Neutrophils % (A) 67 %; Platelet Count 174 k/uL (150-450); RBC 4.51 m/uL (3.80-5.40); WBC 6.1 k/uL (3.8-10.6)
[2023-04-13 12:03] LABS: ALT 14 U/L (4-34); AST 22 U/L (14-36); African American GFR (CKD) >90 (>60 ml/min/1.73 sqM); Albumin 3.6 g/dL (3.5-5.0); Alkaline Phosphatase 122 U/L (38-126); Anion Gap 6 mmol/L; Blood Urea Nitrogen 17 mg/dL (7-17); C Reactive Protein 0.6 mg/dL (<1.0); Carbon Dioxide 30 mmol/L (22-30); Chloride 107 mmol/L (98-107); Glucose 120 mg/dL (74-99); Non-African American GFR(CKD) 87 (>60 ml/min/1.73 sqM); Potassium 3.8 mmol/L (3.5-5.1); Sodium 143 mmol/L (137-145); Total Bilirubin 0.6 mg/dL (0.2-1.3); Total Protein 6.4 g/dL (6.3-8.2)
[2023-04-13] MEDS: KETOROLAC 15 MG/ML 1 ML VIAL IVP STA (12:08)
[2023-04-13] MEDS: diphenhydrAMINE 50 MG/ML 1 ML VIAL IVP STA (12:09)
--- NOTE | 2023-04-13 12:44 | ED ---
General Adult HPI - General Chief complaint: Skin/Abscess/Foreign Body Stated complaint: Rash on left arm, knee pain Time Seen by Provider: 04/13/23 11:09 Source: patient, RN notes reviewed Mode of arrival: wheelchair Limitations: no limitations - History of Present Illness Initial comments: 67-year-old female presents emergency department chief complaint left arm infection. Patient states that her dog jumped up on her scratches her arms but she has been itching her arm causing increasing swelling no drainage. Patient states she is worried that she may be septic as she has had this in the past. Patient states she has some joint pain, itchiness. Patient denies any difficulty breathing no chest pain or shortness of breath no reported fever - Related Data Home Medications Medication Instructions Recorded Confirmed Tiotropium 2.5 Mcg/Puff [Spiriva 2 puff INHALATION RT-DAILY 08/25/21 08/01/22 Respimat 2.5 Mcg] Albuterol Sulfate [Albuterol 2 puff INHALATION RT-Q6H PRN 09/19/21 08/01/22 Sulfate Hfa] Atorvastatin Calcium [Lipitor] 40 mg PO HS 12/07/21 08/01/22 Omeprazole 20 mg PO BID 12/07/21 08/01/22 Ondansetron Odt [Zofran ODT] 4 mg PO BID PRN 12/07/21 08/01/22 QUEtiapine FUMARATE [SEROquel] 25 mg PO HS 12/07/21 08/01/22 metFORMIN HCL 1,000 mg PO BID 12/07/21 08/01/22 Budesonide/Formoterol Fumarate 2 puff INHALATION RT-BID 02/17/22 08/01/22 [Symbicort 160-4.5 Mcg Inhaler] Dapagliflozin Propanediol [Farxiga] 10 mg PO DAILY 02/17/22 08/01/22 Carboxymethylcellulose Sodium 1 drop BOTH EYES QID PRN 08/01/22 08/01/22 [Refresh Tears] Furosemide [Lasix] 40 mg PO DAILY 08/01/22 08/01/22 Prednisolone Acetate/Pf 1 drop BOTH EYES BID 08/01/22 08/01/22 [Prednisolone Acet 1% Eye Drop] sitaGLIPtin [Januvia] 100 mg PO DAILY 08/01/22 08/01/22 Previous Rx's Medication Instructions Recorded Acetaminophen Tab [Tylenol] 650 mg PO Q6HR PRN #30 tab 09/30/21 Metoprolol Tartrate [Lopressor] 25 mg PO BID 30 Days #60 tab 09/30/21 Sennosides [Senokot] 8.6 mg PO BID PRN tab 09/30/21 Cephalexin [Keflex] 500 mg PO Q6HR #40 cap 04/13/23 hydrOXYzine HCL [Atarax] 25 mg PO TID PRN #15 tab 04/13/23 Allergies Allergy/AdvReac Type Severity Reaction Status Date / Time Penicillins Allergy Severe Anaphylaxis Verified 04/13/23 11:13 cyclosporine [From Restasis] Allergy Rash/Hives Verified 04/13/23 11:13 TRACE METALS Allergy itching,rachna Uncoded 04/13/23 11:13 h Review of Systems ROS Statement: Those systems with pertinent positive or pertinent negative responses have been documented in the HPI. ROS Other: All systems not noted in ROS Statement are negative. Past Medical History Past Medical History: Chest Pain / Angina, COPD, Diabetes Mellitus, GERD/Reflux, Hyperlipidemia, Hypertension, Osteoarthritis (OA), Skin Disorder, Sleep Apnea/CPAP/BIPAP Additional Past Medical History / Comment(s): Diagnosed with mild pancreatitis on 01/22/19, NIDDM type II, neuropathy bilateral hands/legs/feet, arthritis in multiple joints, bilateral carpal tunnel syndrome, gastric ulcer, ADRIANA-no longer uses device since wt loss, varicose veins, venous dermatitis. History of Any Multi-Drug Resistant Organisms: None Reported Past Surgical History: Adenoidectomy, Appendectomy, Bariatric Surgery, Cholecystectomy, Orthopedic Surgery, Tonsillectomy Additional Past Surgical History / Comment(s): 01/13/15 Lap laila en Y gastric bypass with lysis of adhesions, EGDs, colonoscopies, bilateral knee arthroscopy, bilateral knee replacements, D&C Past Anesthesia/Blood Transfusion Reactions: No Reported Reaction Additional Past Anesthesia/Blood Transfusion Reaction / Comment(s): Pt is slow to wake from anesthesia. She has received blood in past without reaction. Past Psychological History: Anxiety, Depression Smoking Status: Former smoker Past Alcohol Use History: None Reported Past Drug Use History: None Reported - Past Family History Mother Family Medical History: Cancer, Deep Vein Thrombosis (DVT) Additional Family Medical History / Comment(s): Mother had uterine cancer. Father Family Medical History: Congestive Heart Failure (CHF), Sleep Apnea/CPAP/BIPAP Additional Family Medical History / Comment(s): Father was an alcoholic. He of CHF at the age of 48yrs. Brother(s) Family Medical History: Coronary Artery Disease (CAD) General Exam Limitations: no limitations General appearance: alert, in no apparent distress Head exam: Present: atraumatic, normocephalic, normal inspection Respiratory exam: Present: normal lung sounds bilaterally. Absent: respiratory distress, wheezes, rales, rhonchi, stridor Cardiovascular Exam: Present: regular rate, normal rhythm, normal heart sounds. Absent: systolic murmur, diastolic murmur, rubs, gallop, clicks Extremities exam: Present: other (Left antecubital region there is erythema, swelling, some purulent drainage from an open sore) Course Vital Signs 04/13/23 04/13/23 11:09 12:51 Temperature 98.6 F Pulse Rate 63 64 Respiratory 18 18 Rate Blood Pressure 114/62 111/64 O2 Sat by Pulse 97 97 Oximetry Medical Decision Making - Medical Decision Making Was pt. sent in by a medical professional or institution (, PA, FLAME CUTTING SUPERVISOR, urgent care, hospital, or alf...) When possible be specific @ -No Did you speak to anyone other than the patient for history (EMS, parent, family, police, friend...)? What history was obtained from this source @ -No Did you review nursing and triage notes (agree or disagree)? Why? @ -I reviewed and agree with nursing and triage notes Were old charts reviewed (outside hosp., previous admission, EMS record, old EKG, old radiological studies, urgent care reports/EKG's, alf records)? Report findings @ -No old charts were reviewed Differential Diagnosis (chest pain, altered mental status, abdominal pain women, abdominal pain men, vaginal bleeding, weakness, fever, dyspnea, syncope, headache, dizziness, GI bleed, back pain, seizure, CVA, palpatations, mental health, musculoskeletal)? @ -[Cellulitis, sepsis, excoriations, allergic reaction EKG interpreted by me (3pts min.). @ -None X-rays interpreted by me (1pt min.). @ -[None done CT interpreted by me (1pt min.). @ -None done U/S interpreted by me (1pt. min.). @ -None done What testing was considered but not performed or refused? (CT, X-rays, U/S, labs)? Why? @ -None What meds were considered but not given or refused? Why? @ -None Did you discuss the management of the patient with other professionals (professionals i.e. DrAmanda, PA, FLAME CUTTING SUPERVISOR, lab, RT, psych nurse, home health care social worker, supervisor ordnance truck installation, teacher, bomb squad officer, medical case worker)? Give summary @ -No Was smoking cessation discussed for >3mins.? @ -No Was critical care preformed (if so, how long)? @ -No Were there social determinants of health that impacted care today? How? (Ho melessness, low income, unemployed, alcoholism, drug addiction, transportation, low edu. Level, literacy, decrease access to med. care, [facility], rehab)? @ -No Was there de-escalation of care discussed even if they declined (Discuss DNR or withdrawal of care, Hospice)? DNR status @ -No What co-morbidities impacted this encounter? (DM, HTN, Smoking, COPD, CAD, Cancer, CVA, ARF, Chemo, Hep., AIDS, mental health diagnosis, sleep apnea, morbid obesity)? @ -None Was patient admitted / discharged? Hospital course, mention meds given and route, prescriptions, significant lab abnormalities, going to OR and other pertinent info. @ -Laboratory studies unremarkable. Patient does have mildly elevated lactic with no fever, no leukocytosis. Patient started on oral antibiotics. Return transfer discussed. Undiagnosed new problem with uncertain prognosis? @ -No Drug Therapy requiring intensive monitoring for toxicity (Heparin, Nitro, Insulin, Cardizem)? @ -No Were any procedures done? @ -No Diagnosis/symptom? @ -Left arm cellulitis Acute, or Chronic, or Acute on Chronic? @ -Acute Uncomplicated (without systemic symptoms) or Complicated (systemic symptoms)? @ -Uncomplicated Side effects of treatment? @ -No Exacerbation, Progression, or Severe Exacerbation? @ -No Poses a threat to life or bodily function? How? (Chest pain, USA, AL, pneumonia, PE, COPD, DKA, ARF, appy, cholecystitis, CVA, Diverticulitis, Homicidal, Suicidal, threat to staff... and all critical care pts) @ -No - Lab Data Result diagrams: 04/13/23 11:32 04/13/23 11:32 Lab Results 04/13/23 04/13/23 04/13/23 Range/Units 11:32 11:32 11:32 WBC 6.1 (3.8-10.6) k/uL RBC 4.51 (3.80-5.40) m/uL Hgb 14.5 (11.4-16.0) gm/dL Hct 43.7 (34.0-46.0) % MCV 96.9 (80.0-100.0) fL MCH 32.1 (25.0-35.0) pg MCHC 33.2 (31.0-37.0) g/dL RDW 13.0 (11.5-15.5) % Plt Count 174 (150-450) k/uL MPV 8.8 Neutrophils % 67 % Lymphocytes % 21 % Monocytes % 6 % Eosinophils % 3 % Basophils % 1 % Neutrophils # 4.0 (1.3-7.7) k/uL Lymphocytes # 1.3 (1.0-4.8) k/uL Monocytes # 0.4 (0-1.0) k/uL Eosinophils # 0.2 (0-0.7) k/uL Basophils # 0.0 (0-0.2) k/uL Sodium 143 (137-145) mmol/L Potassium 3.8 (3.5-5.1) mmol/L Chloride 107 (98-107) mmol/L Carbon Dioxide 30 (22-30) mmol/L Anion Gap 6 mmol/L BUN 17 (7-17) mg/dL Creatinine 0.72 (0.52-1.04) mg/dL Est GFR (CKD-EPI)AfAm >90 (>60 ml/min/1.73 sqM) Est GFR (CKD-EPI)NonAf 87 (>60 ml/min/1.73 sqM) Glucose 120 H (74-99) mg/dL Lactic Ac Sepsis Rflx Plasma Lactic Acid Bradly 3.3 H* (0.7-2.0) mmol/L Calcium 9.0 (8.4-10.2) mg/dL Total Bilirubin 0.6 (0.2-1.3) mg/dL AST 22 (14-36) U/L ALT 14 (4-34) U/L Alkaline Phosphatase 122 (38-126) U/L C-Reactive Protein 0.6 (<1.0) mg/dL Total Protein 6.4 (6.3-8.2) g/dL Albumin 3.6 (3.5-5.0) g/dL 04/13/23 Range/Units 12:17 WBC (3.8-10.6) k/uL RBC (3.80-5.40) m/uL Hgb (11.4-16.0) gm/dL Hct (34.0-46.0) % MCV (80.0-100.0) fL MCH (25.0-35.0) pg MCHC (31.0-37.0) g/dL RDW (11.5-15.5) % Plt Count (150-450) k/uL MPV Neutrophils % % Lymphocytes % % Monocytes % % Eosinophils % % Basophils % % Neutrophils # (1.3-7.7) k/uL Lymphocytes # (1.0-4.8) k/uL Monocytes # (0-1.0) k/uL Eosinophils # (0-0.7) k/uL Basophils # (0-0.2) k/uL Sodium (137-145) mmol/L Potassium (3.5-5.1) mmol/L Chloride (98-107) mmol/L Carbon Dioxide (22-30) mmol/L Anion Gap mmol/L BUN (7-17) mg/dL Creatinine (0.52-1.04) mg/dL Est GFR (CKD-EPI)AfAm (>60 ml/min/1.73 sqM) Est GFR (CKD-EPI)NonAf (>60 ml/min/1.73 sqM) Glucose (74-99) mg/dL Lactic Ac Sepsis Rflx Y Plasma Lactic Acid Bradly (0.7-2.0) mmol/L Calcium (8.4-10.2) mg/dL Total Bilirubin (0.2-1.3) mg/dL AST (14-36) U/L ALT (4-34) U/L Alkaline Phosphatase (38-126) U/L C-Reactive Protein (<1.0) mg/dL Total Protein (6.3-8.2) g/dL Albumin (3.5-5.0) g/dL Disposition Clinical Impression: Left arm cellulitis, Genital pruritus Disposition: HOME SELF-CARE Condition: Stable Instructions (If sedation given, give patient instructions): Cellulitis (ED) Additional Instructions: Please return to the Emergency Department if symptoms worsen or any other concerns. Prescriptions: hydrOXYzine HCL [Atarax] 25 mg PO TID PRN #15 tab PRN Reason: pruritus Cephalexin [Keflex] 500 mg PO Q6HR #40 cap Is patient prescribed a controlled substance at d/c from ED?: No Referrals: Mamadou Gerard DO [Primary Care Provider] - 1-2 days Time of Disposition: 12:44
[2023-04-13 13:14] VITALS: BP 111/64; PULSE 64
== END 2023-04-13 12:52 | disposition home or self-care (01) ==
LOC: EC 11:07
DX: L03.114 Cellulitis of left upper limb (principal); L29.3 Anogenital pruritus, unspecified; J44.9 Chronic obstructive pulmonary disease, unspecified; E11.9 Type 2 diabetes mellitus without complications; K21.9 Gastro-esophageal reflux disease without esophagitis; E78.5 Hyperlipidemia, unspecified; I10 Essential (primary) hypertension; M19.90 Unspecified osteoarthritis, unspecified site; G47.30 Sleep apnea, unspecified; F41.9 Anxiety disorder, unspecified; F32.A Depression, unspecified; Z87.891 Personal history of nicotine dependence; Z79.84 Long term (current) use of oral hypoglycemic drugs; Z79.899 Other long term (current) drug therapy; Z88.0 Allergy status to penicillin; Z88.8 Allergy status to other drugs, medicaments and biological substances
CPT/HCPCS: 36415; 80053; 83605; 85025; 86140; 99283; 96374; 96375; J1200; J1885

== ENCOUNTER → 2023-05-06 | Outpatient (CLI) | payer MEDICARE, OTHER ==
--- NOTE | 2023-05-06 09:35 | XR ---
EXAMINATION TYPE: XR shoulder complete LT DATE OF EXAM: 05/06/2023 COMPARISON: NONE HISTORY: Pain TECHNIQUE: Shoulder examined in 3 projections. FINDINGS: The humeral head articulates with the glenoid. The acromio-clavicular junction is normal. No acute fractures or dislocations are evident. On one image there may be some infiltrate left upper lung field. This could be artifact or atelectasi s not evident on the images. A follow up study can be performed 7-10 days from acute trauma for continued pain. MRI can be perfor med if soft tissue evaluation would be of benefit. IMPRESSION: 1. No acute osseous shoulder abnormality. 2. Clinical consideration for left upper lobe infiltrate.
== END | disposition home or self-care (01) ==
LOC: RADXRMAIN 08:53
PROVIDERS: ATTEND Family Medicine
DX: M25.519 Pain in unspecified shoulder (principal); R91.8 Other nonspecific abnormal finding of lung field

== ENCOUNTER → 2023-06-01 | Day surgery (SDC) | payer MEDICARE, OTHER ==
[~2023-06-01] MED LIST changes: -LACTATED RINGERS 1,000 ML IV SCH; -LIDOCAINE 1% 20 ML VIAL (10MG/ML) FOR IV START INTRADERMA PRN; +LIDOCAINE 1% INJ 10MG/ML (20 ML MDV) ONE; +PROPOFOL 10 MG/ML 20 ML VIAL IV ONE
--- NOTE | 2023-06-01 07:35 | P.GSHP ---
History of Present Illness H&P Date: 06/01/23 CHIEF COMPLAINT: GERD and colon screen HISTORY OF PRESENT ILLNESS: The patient is a 67-year-old female who presents with gastroesophageal reflux disease and need for colon screen. Upper and lower endoscopy were offered for further evaluation and management. PAST MEDICAL HISTORY: Please see list. PAST SURGICAL HISTORY: Please see list. MEDICATIONS: Please see list. ALLERGIES: Please see list. SOCIAL HISTORY: No illicit drug use FAMILY HISTORY: No reports of Crohn disease or ulcerative colitis. REVIEW OF ORGAN SYSTEMS: CONSTITUTIONAL: No reports of fevers or chills. GI: Denies any blood in stools or constipation. PHYSICAL EXAM: VITAL SIGNS: Stable GENERAL: Well-developed pleasant in no acute distress. HEENT: No scleral icterus. Extraocular movements grossly intact. Moist buccal mucosa. NECK: Supple without lymphadenopathy. CHEST: Unlabored respirations. Equal bilateral excursions. CARDIOVASCULAR: Regular rate and rhythm. Distal 2+ pulses. ABDOMEN: Soft, nondistended. MUSCULOSKELETAL: No clubbing, cyanosis, or edema. ASSESSMENT: 1. Gastroesophageal reflux disease 2. Colon screen. PLAN: 1. Recommend proceeding with an upper and lower endoscopy Past Medical History Past Medical History: Chest Pain / Angina, COPD, Diabetes Mellitus, GERD/Reflux, Hyperlipidemia, Hypertension, Osteoarthritis (OA), Skin Disorder, Sleep Apnea/CPAP/BIPAP Additional Past Medical History / Comment(s): Diagnosed with mild pancreatitis on 01/22/19, NIDDM type II, neuropathy bilateral hands/legs/feet, arthritis in multiple joints, bilateral carpal tunnel syndrome, gastric ulcer, ADRIANA-no longer uses device since wt loss, varicose veins, venous dermatitis. History of Any Multi-Drug Resistant Organisms: None Reported Past Surgical History: Adenoidectomy, Appendectomy, Bariatric Surgery, Cholecystectomy, Orthopedic Surgery, Tonsillectomy Additional Past Surgical History / Comment(s): 01/13/15 Lap laila en Y gastric bypass with lysis of adhesions, EGDs, colonoscopies, bilateral knee arthroscopy, bilateral knee replacements, D&C Past Anesthesia/Blood Transfusion Reactions: No Reported Reaction Additional Past Anesthesia/Blood Transfusion Reaction / Comment(s): Pt is slow to wake from anesthesia. She has received blood in past without reaction. Past Psychological History: Anxiety, Depression Additional Psychological History / Comment(s): Pt resides with her SO. She uses a cane and walker if needed. She has never had a bulk driver's license- her SO takes her to [facility]. Smoking Status: Former smoker Past Alcohol Use History: None Reported Additional Past Alcohol Use History / Comment(s): Pt started smoking in 1969 and quit smoking in 2009 Past Drug Use History: None Reported - Past Family History Mother Family Medical History: Cancer, Deep Vein Thrombosis (DVT) Additional Family Medical History / Comment(s): Mother had uterine cancer. Father Family Medical History: Congestive Heart Failure (CHF), Sleep Apnea/CPAP/BIPAP Additional Family Medical History / Comment(s): Father was an alcoholic. He of CHF at the age of 48yrs. Brother(s) Family Medical History: Coronary Artery Disease (CAD) Medications and Allergies Home Medications Medication Instructions Recorded Confirmed Type Tiotropium 2.5 Mcg/Puff [Spiriva 2 puff INHALATION RT-DAILY 08/25/21 05/30/23 History Respimat 2.5 Mcg] Albuterol Sulfate [Albuterol 2 puff INHALATION RT-Q6H PRN 09/19/21 05/30/23 History Sulfate Hfa] Acetaminophen Tab [Tylenol] 650 mg PO Q6HR PRN #30 tab 09/30/21 05/30/23 Rx Metoprolol Tartrate [Lopressor] 25 mg PO BID 30 Days #60 tab 09/30/21 05/30/23 Rx Sennosides [Senokot] 8.6 mg PO BID PRN tab 09/30/21 05/30/23 Rx Atorvastatin Calcium [Lipitor] 40 mg PO HS 12/07/21 05/30/23 History Omeprazole 20 mg PO BID 12/07/21 05/30/23 History Ondansetron Odt [Zofran ODT] 4 mg PO BID PRN 12/07/21 05/30/23 History QUEtiapine FUMARATE [SEROquel] 25 mg PO HS 12/07/21 05/30/23 History metFORMIN HCL 1,000 mg PO BID 12/07/21 05/30/23 History Budesonide/Formoterol Fumarate 2 puff INHALATION RT-BID 02/17/22 05/30/23 History [Symbicort 160-4.5 Mcg Inhaler] Dapagliflozin Propanediol [Farxiga] 10 mg PO QAM 02/17/22 05/30/23 History Carboxymethylcellulose Sodium 1 drop BOTH EYES QID PRN 08/01/22 05/30/23 History [Refresh Tears] Furosemide [Lasix] 40 mg PO QAM 08/01/22 05/30/23 History sitaGLIPtin [Januvia] 100 mg PO DAILY 08/01/22 05/30/23 History Allergies Allergy/AdvReac Type Severity Reaction Status Date / Time Penicillins Allergy Severe Anaphylaxis Verified 05/30/23 09:59 cyclosporine [From Restasis] Allergy Rash/Hives Verified 05/30/23 09:59 TRACE METALS Allergy itching,rachna Uncoded 05/30/23 09:59 h
[2023-06-01] MEDS: LACTATED RINGERS 1,000 ML IV SCH (07:58)
[2023-06-01 08:03] LABS: Glucose,Whole Blood 124 mg/dL (70-110)
--- NOTE | 2023-06-01 08:06 | P.HPADDEND ---
H&P Addendum H&P Addendum Date: 06/01/23 Patient unable to have a bowel movement and perform colonoscopy. Will do upper endoscopy today. Colonoscopy for tomorrow after bowel movements. Will add additional laxatives.
--- NOTE | 2023-06-01 08:24 | P.PCN ---
Date of Procedure: 06/01/23 Description of Procedure: PREOPERATIVE DIAGNOSIS: Dysphagia. s/p Chinedu-en-y gastric bypass. Nausea with vomiting. Morbid obesity. Diabetes type 2. POSTOPERATIVE DIAGNOSIS: Dysphagia. s/p Chinedu-en-y gastric bypass. Nausea with vomiting. Morbid obesity. Diabetes type 2. 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 SURGEON: Nereida Osborne MD ANESTHESIA: MAC. INDICATIONS: The patient is a 67-year-old female who presents with a history of dysphagia, gastric bypass including new-onset nausea and vomiting. Benefits and risks of the procedure were described. Informed consent was obtained. DESCRIPTION: The patient was brought into the endoscopy suite and laid in the left lateral decubitus position. After a timeout was confirmed, the procedure was initiated. An Olympus gastroscope was passed along the posterior oropharynx down to the distal esophagus where the squamocolumnar junction was unremarkable. The gastric pouch was entered. A gastrojejunal stricture of 15 mm was found as the adult gastroscope was 9.5 mm in size. A [employer] balloon dilator was placed through the scope. Final insufflation up to 20 mm was performed with a total of 2 minutes. The scope was advanced up to 60 cm from the incisors into the Chinedu limb. The mucosa of the gastrojejunal anastomosis was intact. However chronic gastrojejunal marginal ulcer was encountered with bleeding inside gastric pouch. No full-thickness injury was encountered. The GI tract was desufflated. The patient tolerated the procedure well. FINDINGS: Squamocolumnar junction unremarkable at 40 cm. Stricture of approximately 15 mm encountered. Chronic gastrojejunal ulceration encountered. Successful balloon dilatation to 20 mm. Diaphragmatic hiatus at 40 cm. Gastric pouch 3 cm. Active bleeding within gastric pouch with chronic gastric ulcer at anastomosis, 2 mm RECOMMENDATIONS: Start combined therapy of Carafate and omeprazole of at least 4 weeks. Plan - Discharge Summary New Discharge Prescriptions: New Lactulose [Cephulac] 30 gm PO BID #240 ml Peg 3350 (420 gm/Btl) + Lytes [Nulytely] 2,000 ml PO DIRECTED #1 ml Magnesium Hydroxide [Milk of Magnesia] 30 ml PO BID #240 ml Continue Tiotropium 2.5 Mcg/Puff [Spiriva Respimat 2.5 Mcg] 2 puff INHALATION RT-DAILY Albuterol Sulfate [Albuterol Sulfate Hfa] 2 puff INHALATION RT-Q6H PRN PRN Reason: Shortness Of Breath Metoprolol Tartrate [Lopressor] 25 mg PO BID 30 Days #60 tab metFORMIN HCL 1,000 mg PO BID Omeprazole 20 mg PO BID Atorvastatin Calcium [Lipitor] 40 mg PO HS Budesonide/Formoterol Fumarate [Symbicort 160-4.5 Mcg Inhaler] 2 puff INHALATION RT-BID Dapagliflozin Propanediol [Farxiga] 10 mg PO QAM Furosemide [Lasix] 40 mg PO QAM sitaGLIPtin [Januvia] 100 mg PO DAILY Sennosides [Senokot] 8.6 mg PO BID PRN tab PRN Reason: Constipation Acetaminophen Tab [Tylenol] 650 mg PO Q6HR PRN #30 tab PRN Reason: Fever and/ or MILD Pain QUEtiapine FUMARATE [SEROquel] 25 mg PO HS Ondansetron Odt [Zofran ODT] 4 mg PO BID PRN PRN Reason: Nausea Carboxymethylcellulose Sodium [Refresh Tears] 1 drop BOTH EYES QID PRN PRN Reason: Dry Eye(S) Discharge Medication List Tiotropium 2.5 Mcg/Puff [Spiriva Respimat 2.5 Mcg] 2 puff INHALATION RT-DAILY 08/25/21 [History] Albuterol Sulfate [Albuterol Sulfate Hfa] 2 puff INHALATION RT-Q6H PRN 09/19/21 [History] Acetaminophen Tab [Tylenol] 650 mg PO Q6HR PRN #30 tab 09/30/21 [Rx] Metoprolol Tartrate [Lopressor] 25 mg PO BID 30 Days #60 tab 09/30/21 [Rx] Sennosides [Senokot] 8.6 mg PO BID PRN tab 09/30/21 [Rx] Atorvastatin Calcium [Lipitor] 40 mg PO HS 12/07/21 [History] Omeprazole 20 mg PO BID 12/07/21 [History] Ondansetron Odt [Zofran ODT] 4 mg PO BID PRN 12/07/21 [History] QUEtiapine FUMARATE [SEROquel] 25 mg PO HS 12/07/21 [History] metFORMIN HCL 1,000 mg PO BID 10/03/22 [History] Budesonide/Formoterol Fumarate [Symbicort 160-4.5 Mcg Inhaler] 2 puff INHALATION RT-BID 02/17/22 [History] Dapagliflozin Propanediol [Farxiga] 10 mg PO QAM 02/17/22 [History] Carboxymethylcellulose Sodium [Refresh Tears] 1 drop BOTH EYES QID PRN 08/01/22 [History] Furosemide [Lasix] 40 mg PO QAM 08/01/22 [History] sitaGLIPtin [Januvia] 100 mg PO DAILY 08/01/22 [History] Lactulose [Cephulac] 30 gm PO BID #240 ml 06/01/23 [Rx] Magnesium Hydroxide [Milk of Magnesia] 30 ml PO BID #240 ml 06/01/23 [Rx] Peg 3350 (420 gm/Btl) + Lytes [Nulytely] 2,000 ml PO DIRECTED #1 ml 06/01/23 [Rx] Follow up Appointment(s)/Referral(s): Nereida Osborne MD [STAFF PHYSICIAN] - 1 Week Patient Instructions/Handouts: *Surgery [facility] - (Anesthesia) Discharge Instructions Outpatient Surgery Activity/Diet/Wound Care/Special Instructions: Keep clear liquid diet today. Take lactulose twice daily and Milk of Magnesia Twice daily today with Nulytely prep. Notify hospital tomorrow morning if no bowel movement by 9 am Discharge Disposition: HOME SELF-CARE
[2023-06-01 08:25] VITALS: RESP 16; TEMP 97
[2023-06-01 08:35] LABS: Glucose,Whole Blood 102 mg/dL (70-110)
[2023-06-01 09:04] VITALS: BP 114/55; PULSE 88
== END | disposition home or self-care (01) ==
LOC: ORWHC2ENDO 06:57
PROVIDERS: ATTEND Surgery Plastic and Reconstructive Surgery
DX: R13.10 Dysphagia, unspecified (principal); K44.9 Diaphragmatic hernia without obstruction or gangrene; E11.9 Type 2 diabetes mellitus without complications; E66.01 Morbid (severe) obesity due to excess calories; E78.5 Hyperlipidemia, unspecified; F32.A Depression, unspecified; G47.33 Obstructive sleep apnea (adult) (pediatric); I10 Essential (primary) hypertension; J44.9 Chronic obstructive pulmonary disease, unspecified; K21.9 Gastro-esophageal reflux disease without esophagitis; Z79.51 Long term (current) use of inhaled steroids; Z79.84 Long term (current) use of oral hypoglycemic drugs; Z87.11 Personal history of peptic ulcer disease; Z87.891 Personal history of nicotine dependence; Z88.0 Allergy status to penicillin; Z90.49 Acquired absence of other specified parts of digestive tract; Z98.84 Bariatric surgery status; Z68.32 Body mass index [BMI] 32.0-32.9, adult
CPT/HCPCS: 43249; J2001; J2704; C1726

== ENCOUNTER → 2023-06-02 | Day surgery (SDC) | payer MEDICARE, OTHER ==
[2023-06-01 10:20] VITALS: BMI 32.3
[2023-06-02] MEDS: LACTATED RINGERS 1,000 ML IV SCH (11:01)
[2023-06-02 11:12] VITALS: TEMP 97
[2023-06-02 11:19] LABS: Glucose,Whole Blood 150 mg/dL (70-110)
--- NOTE | 2023-06-02 12:22 | P.GSHP ---
History of Present Illness H&P Date: 06/02/23 CHIEF COMPLAINT: GERD and colon screen HISTORY OF PRESENT ILLNESS: The patient is a 67-year-old male who presents with gastroesophageal reflux disease and need for colon screen. Upper and lower endoscopy were offered for further evaluation and management. Upper endoscopy was completed yesterday. Colonoscopy today due to no bowel movements yesterday. PAST MEDICAL HISTORY: Please see list. PAST SURGICAL HISTORY: Please see list. MEDICATIONS: Please see list. ALLERGIES: Please see list. SOCIAL HISTORY: No illicit drug use FAMILY HISTORY: No reports of Crohn disease or ulcerative colitis. REVIEW OF ORGAN SYSTEMS: CONSTITUTIONAL: No reports of fevers or chills. GI: Denies any blood in stools or constipation. PHYSICAL EXAM: VITAL SIGNS: Stable GENERAL: Well-developed pleasant in no acute distress. HEENT: No scleral icterus. Extraocular movements grossly intact. Moist buccal mucosa. NECK: Supple without lymphadenopathy. CHEST: Unlabored respirations. Equal bilateral excursions. CARDIOVASCULAR: Regular rate and rhythm. Distal 2+ pulses. ABDOMEN: Soft, nondistended. MUSCULOSKELETAL: No clubbing, cyanosis, or edema. ASSESSMENT: 1. Colon screen. PLAN: 1. Recommend proceeding with lower endoscopy Past Medical History Past Medical History: Chest Pain / Angina, COPD, Diabetes Mellitus, GERD/Reflux, Hyperlipidemia, Hypertension, Osteoarthritis (OA), Skin Disorder, Sleep Apnea/CPAP/BIPAP Additional Past Medical History / Comment(s): Diagnosed with mild pancreatitis on 01/22/19, NIDDM type II, neuropathy bilateral hands/legs/feet, arthritis in multiple joints, bilateral carpal tunnel syndrome, gastric ulcer, ADRIANA-no longer uses device since wt loss, varicose veins, venous dermatitis. History of Any Multi-Drug Resistant Organisms: None Reported Past Surgical History: Adenoidectomy, Appendectomy, Bariatric Surgery, Cholecystectomy, Orthopedic Surgery, Tonsillectomy Additional Past Surgical History / Comment(s): 01/13/15 Lap laila en Y gastric bypass with lysis of adhesions, EGDs, colonoscopies, bilateral knee arthroscopy, bilateral knee replacements, D&C, EGD DONE TODAY-UNABLE TO COMPLETE COLONOSCOPY-BOWELS NOT CLEAR-RESCHEDULED FOR TOMORROW Past Anesthesia/Blood Transfusion Reactions: No Reported Reaction Additional Past Anesthesia/Blood Transfusion Reaction / Comment(s): Pt is slow to wake from anesthesia. She has received blood in past without reaction. Smoking Status: Former smoker - Past Family History Mother Family Medical History: Cancer, Deep Vein Thrombosis (DVT) Additional Family Medical History / Comment(s): Mother had uterine cancer. Father Family Medical History: Congestive Heart Failure (CHF), Sleep Apnea/CPAP/BIPAP Additional Family Medical History / Comment(s): Father was an alcoholic. He of CHF at the age of 48yrs. Brother(s) Family Medical History: Coronary Artery Disease (CAD) Medications and Allergies Home Medications Medication Instructions Recorded Confirmed Type Tiotropium 2.5 Mcg/Puff [Spiriva 2 puff INHALATION RT-DAILY 08/25/21 06/02/23 History Respimat 2.5 Mcg] Albuterol Sulfate [Albuterol 2 puff INHALATION RT-Q6H PRN 09/19/21 06/02/23 History Sulfate Hfa] Acetaminophen Tab [Tylenol] 650 mg PO Q6HR PRN #30 tab 09/30/21 06/01/23 Rx Metoprolol Tartrate [Lopressor] 25 mg PO BID 30 Days #60 tab 09/30/21 06/02/23 Rx Sennosides [Senokot] 8.6 mg PO BID PRN tab 09/30/21 06/02/23 Rx Atorvastatin Calcium [Lipitor] 40 mg PO HS 12/07/21 06/02/23 History Omeprazole 20 mg PO BID 12/07/21 06/02/23 History Ondansetron Odt [Zofran ODT] 4 mg PO BID PRN 12/07/21 06/02/23 History QUEtiapine FUMARATE [SEROquel] 25 mg PO HS 12/07/21 06/02/23 History metFORMIN HCL 1,000 mg PO BID 12/07/21 06/02/23 History Budesonide/Formoterol Fumarate 2 puff INHALATION RT-BID 02/17/22 06/02/23 History [Symbicort 160-4.5 Mcg Inhaler] Dapagliflozin Propanediol [Farxiga] 10 mg PO QAM 02/17/22 06/02/23 History Carboxymethylcellulose Sodium 1 drop BOTH EYES QID PRN 08/01/22 06/02/23 History [Refresh Tears] Furosemide [Lasix] 40 mg PO QAM 08/01/22 06/02/23 History sitaGLIPtin [Januvia] 100 mg PO DAILY 08/01/22 06/02/23 History Lactulose [Cephulac] 30 gm PO BID #240 ml 06/01/23 06/02/23 Rx Magnesium Hydroxide [Milk of 30 ml PO BID #240 ml 06/01/23 06/02/23 Rx Magnesia] Peg 3350 (420 gm/Btl) + Lytes 2,000 ml PO DIRECTED #1 ml 06/01/23 06/02/23 Rx [Nulytely] Sucralfate [Carafate] 1 gm PO BID #60 tablet 06/02/23 Rx Allergies Allergy/AdvReac Type Severity Reaction Status Date / Time Penicillins Allergy Severe Anaphylaxis Verified 06/02/23 11:14 cyclosporine [From Restasis] Allergy Rash/Hives Verified 06/02/23 11:14 TRACE METALS Allergy itching,rachna Uncoded 06/02/23 11:14 h Surgical - Exam Vital Signs Temp Pulse Resp BP Pulse Ox 97.0 F L 115 H 18 130/61 96 06/02/23 10:59 06/02/23 10:59 06/02/23 10:59 06/02/23 10:59 06/02/23 10:59 Results - Labs Abnormal Lab Results - Last 24 Hours (Table) 06/02/23 Range/Units 11:13 POC Glucose (mg/dL) 150 H (70-110) mg/dL
[2023-06-02 12:23] LABS: Glucose,Whole Blood 147 mg/dL (70-110)
--- NOTE | 2023-06-02 12:23 | P.PCN ---
Date of Procedure: 06/02/23 Description of Procedure: PREOPERATIVE DIAGNOSIS: Colonoscopy screening. History of colon polyps POSTOPERATIVE DIAGNOSIS: Colonoscopy screening. Very poor prep OPERATION: Colonoscopy to the cecum SURGEON: Nereida Osborne MD. ANESTHESIA: MAC. INDICATIONS: The patient is a 67-year-old female who presents for colonoscopy screening. Last colonoscopy 10 years ago. Benefits and risks were described and informed consent was obtained. DESCRIPTION OF PROCEDURE: The patient had undergone Sutab prep. The patient had been brought into the operating room and laid in the left lateral decubitus position. After adequate intravenous sedation, the rectum was examined with 2% lidocaine jelly. No external hemorrhoids were encountered. The rectal tone was within normal limits. No lesions were palpated in the rectal vault. An Olympus colonoscope was advanced until the cecum, ileocecal valve and appendiceal orifice were clearly viewed. The prep was poor with moderate liquid stools. No large scattered diverticulosis was encountered. No large colonic polyps were found. No evidence of focal colitis was found. Retroflexion of the scope demonstrated grade 1 internal hemorrhoids without active bleeding or inflammation. The colon was desufflated. The patient had tolerated the procedure well. Withdrawal time was over 6 minutes. FINDINGS: Aronchick preparation quality scale 4 (1-5) Internal hemorrhoids, grade 1 No external prolapsed hemorrhoids. No arteriovenous malformations. Nondiagnostic colonoscopy due to very poor prep. No focal colitis. RECOMMENDATIONS: Lower endoscopy in 3 years, 2026 with 3-day bowel prep Plan - Discharge Summary Discharge Rx Participant: No New Discharge Prescriptions: New Sucralfate [Carafate] 1 gm PO BID #60 tablet Continue Tiotropium 2.5 Mcg/Puff [Spiriva Respimat 2.5 Mcg] 2 puff INHALATION RT-DAILY Albuterol Sulfate [Albuterol Sulfate Hfa] 2 puff INHALATION RT-Q6H PRN PRN Reason: Shortness Of Breath Metoprolol Tartrate [Lopressor] 25 mg PO BID 30 Days #60 tab metFORMIN HCL 1,000 mg PO BID Omeprazole 20 mg PO BID Atorvastatin Calcium [Lipitor] 40 mg PO HS Budesonide/Formoterol Fumarate [Symbicort 160-4.5 Mcg Inhaler] 2 puff INHALATION RT-BID Dapagliflozin Propanediol [Farxiga] 10 mg PO QAM Furosemide [Lasix] 40 mg PO QAM sitaGLIPtin [Januvia] 100 mg PO DAILY Lactulose [Cephulac] 30 gm PO BID #240 ml Peg 3350 (420 gm/Btl) + Lytes [Nulytely] 2,000 ml PO DIRECTED #1 ml Sennosides [Senokot] 8.6 mg PO BID PRN tab PRN Reason: Constipation Acetaminophen Tab [Tylenol] 650 mg PO Q6HR PRN #30 tab PRN Reason: Fever and/ or MILD Pain QUEtiapine FUMARATE [SEROquel] 25 mg PO HS Ondansetron Odt [Zofran ODT] 4 mg PO BID PRN PRN Reason: Nausea Carboxymethylcellulose Sodium [Refresh Tears] 1 drop BOTH EYES QID PRN PRN Reason: Dry Eye(S) Magnesium Hydroxide [Milk of Magnesia] 30 ml PO BID #240 ml Discharge Medication List Tiotropium 2.5 Mcg/Puff [Spiriva Respimat 2.5 Mcg] 2 puff INHALATION RT-DAILY 08/25/21 [History] Albuterol Sulfate [Albuterol Sulfate Hfa] 2 puff INHALATION RT-Q6H PRN 09/19/21 [History] Acetaminophen Tab [Tylenol] 650 mg PO Q6HR PRN #30 tab 09/30/21 [Rx] Metoprolol Tartrate [Lopressor] 25 mg PO BID 30 Days #60 tab 09/30/21 [Rx] Sennosides [Senokot] 8.6 mg PO BID PRN tab 09/30/21 [Rx] Atorvastatin Calcium [Lipitor] 40 mg PO HS 12/07/21 [History] Omeprazole 20 mg PO BID 12/07/21 [History] Ondansetron Odt [Zofran ODT] 4 mg PO BID PRN 12/07/21 [History] QUEtiapine FUMARATE [SEROquel] 25 mg PO HS 12/07/21 [History] metFORMIN HCL 1,000 mg PO BID 12/07/21 [History] Budesonide/Formoterol Fumarate [Symbicort 160-4.5 Mcg Inhaler] 2 puff INHALATION RT-BID 02/17/22 [History] Dapagliflozin Propanediol [Farxiga] 10 mg PO QAM 02/17/22 [History] Carboxymethylcellulose Sodium [Refresh Tears] 1 drop BOTH EYES QID PRN 05/28/23 [History] Furosemide [Lasix] 40 mg PO QAM 08/01/22 [History] sitaGLIPtin [Januvia] 100 mg PO DAILY 08/01/22 [History] Lactulose [Cephulac] 30 gm PO BID #240 ml 06/01/23 [Rx] Magnesium Hydroxide [Milk of Magnesia] 30 ml PO BID #240 ml 06/01/23 [Rx] Peg 3350 (420 gm/Btl) + Lytes [Nulytely] 2,000 ml PO DIRECTED #1 ml 06/01/23 [Rx] Sucralfate [Carafate] 1 gm PO BID #60 tablet 06/02/23 [Rx] [facility]Ref[facility] [place] [facility] - [facility] Patient Instructions/Handouts: Diet for Stomach Ulcers and Gastritis (ED) Activity/Diet/Wound Care/Special Instructions: Repeat colonoscopy 3 years, 2026 Discharge Disposition: HOME SELF-CARE
[2023-06-02 13:01] VITALS: BP 122/78; PULSE 110
[2023-06-02 13:02] VITALS: RESP 18
== END | disposition home or self-care (01) ==
LOC: ORWHC2ENDO 10:45
PROVIDERS: ATTEND Surgery Plastic and Reconstructive Surgery
DX: Z12.11 Encounter for screening for malignant neoplasm of colon (principal); K64.0 First degree hemorrhoids; J44.9 Chronic obstructive pulmonary disease, unspecified; E11.9 Type 2 diabetes mellitus without complications; K21.9 Gastro-esophageal reflux disease without esophagitis; I10 Essential (primary) hypertension; E78.5 Hyperlipidemia, unspecified; I20.9 Angina pectoris, unspecified; M19.90 Unspecified osteoarthritis, unspecified site; G47.33 Obstructive sleep apnea (adult) (pediatric); Z87.11 Personal history of peptic ulcer disease; Z90.49 Acquired absence of other specified parts of digestive tract; Z98.84 Bariatric surgery status; Z98.890 Other specified postprocedural states; Z87.891 Personal history of nicotine dependence; Z80.49 Family history of malignant neoplasm of other genital organs; Z82.49 Family history of ischemic heart disease and other diseases of the circulatory system; Z79.84 Long term (current) use of oral hypoglycemic drugs; Z79.899 Other long term (current) drug therapy; Z86.010 Personal history of colon polyps; Z79.51 Long term (current) use of inhaled steroids; Z88.0 Allergy status to penicillin; Z90.89 Acquired absence of other organs
CPT/HCPCS: J2001; J2704; G0105

== ENCOUNTER → 2023-06-16 | Outpatient (CLI) | payer MEDICARE, OTHER ==
[2023-06-16 15:43] LABS: African American GFR (CKD) 82 (>60 ml/min/1.73 sqM); Blood Urea Nitrogen 22 mg/dL (7-17); Non-African American GFR(CKD) 71 (>60 ml/min/1.73 sqM)
--- NOTE | 2023-06-17 16:00 | CT ---
EXAMINATION TYPE: CT chest w con DATE OF EXAM: 06/16/2023 COMPARISON: 09/21/2021 HISTORY: abnormal findings left lung on prior exam. CT DLP: 571 mGycm, Automated exposure control for dose reduction was used. CONTRAST: Performed injected with 100 mL of Isovue 300. TECHNIQUE: Axial images were obtained at 5 mm thick sections. Reconstructed images are reviewed on [employer] computer in the coronal plane. FINDINGS: Portion of the thyroid visualized is normal. Previous pleural effusions have resolved. Lung graves appear clear. No enlarged mediastinal or hilar adenopathy is evident. The ascending aorta diameter at the level o f the main pulmonary artery is 3.7 cm. The main pulmonary artery diameter at the bifurcation is 3.1 cm. Previous pericardial effusion is resolved. Limited CT sections are obtained through the upper abdomen. Pancreas appears atrophic IMPRESSION: 1. Resolution previous pleural effusion and pericardial effusion. 2. No acute CT changes
== END | disposition home or self-care (01) ==
LOC: RADCTMAIN 14:43
PROVIDERS: ATTEND Family Medicine
DX: R91.8 Other nonspecific abnormal finding of lung field (principal); J90 Pleural effusion, not elsewhere classified; I31.39 Other pericardial effusion (noninflammatory)
CPT/HCPCS: 82565; 84520; 71260; 36415; Q9967

== ENCOUNTER → 2023-06-29 | Outpatient (CLI) | payer MEDICARE, OTHER ==
[2023-06-29 17:35] VITALS: BP 109/72; PULSE 89; TEMP 98.6; BMI 33.0
--- NOTE | 2023-07-07 15:43 | P.HPBAR ---
Bariatric H&P - History & Physicial H&P Date: 06/29/23 History & Physicial: Visit/CC: bypass follow up Patient initial contact: Initial weight: 156.263 kg Initial weight in pounds: 344.50 Height: 5 ft 6.5 in Initial BMI: 54.8 Last weight: Current weight: 94.347 kg Current weight in pounds: 208.00 Current BMI: 33.0 [place] body weight (based on NIH guidelines): 60.101 kg Excess body weight loss: 64.3% The patient is a 67 year-old F who presents for Bariatric Assessment. DATE OF SERVICE: 06/29/23 CHIEF COMPLAINT: Follow-up gastric bypass. HISTORY OF PRESENT ILLNESS: Samantha Priest is a 67-year-old female who is status post Chinedu-en-Y gastric bypass January 13, 2015. She is 9 years out. She has been lost to follow-up in the past 5 years. She comes in with difficulty with swallowing including multiple ulcers along her gastric pouch. She has a stricture. She reports difficulty with eating textured foods. She had recently completed both an upper and lower endoscopy. Her highest weight in the program was 345 pounds for her 5 feet 6 inches frame. Her ideal body weight is 154 pounds. Today she comes in weighing 208 pounds from 202 pounds, 5 years ago. She has l gained 6 pounds in 5 years. She has lost 137 pounds, lifetime. Lifetime percent excess weight loss is 72 %. Body mass index has been reduced from 55.8 to 33.1 PAST MEDICAL HISTORY: 1. Morbid obesity due to excess calories, BMI 55.8 initial 2. Hypercholesterolemia. 3. Diabetes type 2. 4. Dyslipidemia. 5. Hypertension. 6. Depression. 7. Osteoarthritis of bilateral knees. 8. Chronic obstructive pulmonary disease due to asthma 9. Gastroesophageal reflux disease 10. Congestive heart failure due to hypertensive heart disease PAST SURGICAL HISTORY: 1. Appendectomy. 2. Adenoidectomy. 3. Cholecystectomy. 4. Bilateral knee replacement. 5. Tonsillectomy. 6. D and C. 7. Bilateral cataract extraction. 8. Status post Chinedu-en-Y gastric bypass. MEDICATIONS: Home Medications Medication Instructions Recorded Confirmed Tiotropium 2.5 Mcg/Puff [Spiriva 2 puff INHALATION RT-DAILY 08/25/21 07/01/23 Respimat 2.5 Mcg] Albuterol Sulfate [Albuterol 2 puff INHALATION RT-Q6H PRN 09/19/21 07/01/23 Sulfate Hfa] Atorvastatin Calcium [Lipitor] 40 mg PO HS 12/07/21 07/01/23 Omeprazole 20 mg PO BID 12/07/21 07/01/23 Ondansetron Odt [Zofran ODT] 4 mg PO BID PRN 12/07/21 07/01/23 QUEtiapine FUMARATE [SEROquel] 25 mg PO HS 12/07/21 07/01/23 metFORMIN HCL 1,000 mg PO BID 12/07/21 07/01/23 Budesonide/Formoterol Fumarate 2 puff INHALATION RT-BID 02/17/22 07/01/23 [Symbicort 160-4.5 Mcg Inhaler] Dapagliflozin Propanediol [Farxiga] 10 mg PO QAM 02/17/22 07/01/23 Carboxymethylcellulose Sodium 1 drop BOTH EYES QID PRN 08/01/22 07/01/23 [Refresh Tears] Furosemide [Lasix] 40 mg PO QAM 08/01/22 07/01/23 sitaGLIPtin [Januvia] 100 mg PO DAILY 08/01/22 07/01/23 Previous Rx's Medication Instructions Recorded Acetaminophen Tab [Tylenol] 650 mg PO Q6HR PRN #30 tab 09/30/21 Metoprolol Tartrate [Lopressor] 25 mg PO BID 30 Days #60 tab 09/30/21 Sennosides [Senokot] 8.6 mg PO BID PRN tab 09/30/21 Lactulose [Cephulac] 30 gm PO BID #240 ml 06/01/23 Magnesium Hydroxide [Milk of 30 ml PO BID #240 ml 06/01/23 Magnesia] Peg 3350 (420 gm/Btl) + Lytes 2,000 ml PO DIRECTED #1 ml 06/01/23 [Nulytely] Sucralfate [Carafate] 1 gm PO BID #120 tablet 06/29/23 ALLERGIES: Allergies Allergy/AdvReac Type Severity Reaction Status Date / Time Penicillins Allergy Severe Anaphylaxis Verified 06/02/23 11:14 cyclosporine [From Restasis] Allergy Rash/Hives Verified 06/02/23 11:14 TRACE METALS Allergy itching,rachna Uncoded 06/02/23 11:14 h SOCIAL HISTORY: Remote tobacco use. Denies any active alcohol use. FAMILY HISTORY: Pertinent for stomach cancer in her grandmother's side. Also she had a cousin who of rectal cancer. Denies any family history of food allergies of blood clots. She did have a mother who had DVT from taking control. No reports of inflammatory bowel disease. REVIEW OF SYSTEMS: CONSTITUTIONAL: Her highest weight in the program was 345 pounds for her 5 feet 6 inches frame. Her ideal body weight is 154 pounds. Body mass index has been reduced from 55.9. MUSCULOSKELETAL: Moderate improvement of lower back pain including hip and knee pain. ENDOCRINE: Resolved diabetes type 2. She is off insulin. GASTROINTESTINAL: Has change in bowel habits. Resolved gastroesophageal reflux disease. CARDIOVASCULAR: Moderate improvement of hypertension. RESPIRATORY: Reduction of use of her CPAP machine. HEENT: Has poor dentition. She is edentulous. Reports of dysphagia. NEURO: No gross or secretions stroke or seizure disorders. PSYCH: History of depression without suicidal ideation. SKIN: No skin cancer. No rash GENITOURINARY: No blood in urine. No bladder hesistancy HEME: No recent DVTs. PHYSICAL EXAM: VITAL SIGNS: 5 feet 6.5 inches, 208 pounds, BMI 33.1 Vital Signs Temp 98.6 F 06/29/23 16:50 Pulse 89 06/29/23 16:50 Resp BP 109/72 06/29/23 16:50 Pulse Ox FiO2 ABDOMEN: No palpable incisional hernias. No acute panniculitis. MUSCULOSKELETAL: No clubbing, cyanosis, or edema. GENERAL: Well-developed pleasant female in no acute distress. PSYCH: Appropriate affect. Alert and oriented to person, place and time. HEENT: No scleral icterus. Extraocular movements grossly intact. Moist buccal mucosa. Edentulous NECK: Supple without lymphadenopathy. CHEST: Unlabored respirations. Equal bilateral excursions. CARDIOVASCULAR: Distal 2+ pulses. SKIN: Well perfused. Good skin turgor. NEURO: Cranial nerves II to XII grossly intact. No focal or lateralizing signs. EGD FINDINGS May 2023: Squamocolumnar junction unremarkable at 40 cm. Stricture of approximately 15 mm encountered. Chronic gastrojejunal ulceration encountered. Successful balloon dilatation to 20 mm. Diaphragmatic hiatus at 40 cm. Gastric pouch 3 cm. Active bleeding within gastric pouch with chronic gastric ulcer at anastomosis, 2 mm COLON FINDINGS May 2023: Aronchick preparation quality scale 4 (1-5) Internal hemorrhoids, grade 1 No external prolapsed hemorrhoids. No arteriovenous malformations. Nondiagnostic colonoscopy due to very poor prep. No focal colitis. STUDIES: CT chest from June 2023 independently reviewed demonstrates no evidence of large diaphragmatic hiatal hernia. Presence of gastric bypass. No large lung masses identified. This is my independent interpretation. ASSESSMENT: 1. Morbid obesity due to excess calories, BMI 55.8 initial 2. Hypercholesterolemia. 3. Diabetes type 2. 4. Dyslipidemia. 5. Hypertension. 6. Depression. 7. Osteoarthritis of bilateral knees. 8. Chronic obstructive pulmonary disease due to asthma 9. Gastroesophageal reflux disease 10. Congestive heart failure due to hypertensive heart disease 11. Dysphagia 12. Gastrojejunal ulcer with obstruction and bleeding 13. Chronic constipation PLAN: 1. She has been lost to follow-up for over 5 years for which bariatric labs advised. 2. Will need repeat upper endoscopy in 4 weeks after Carafate and Protonix treatment due to acute gastrojejunal ulcer with obstruction and bleeding. Will need upper endoscopy with dilation. She is elevated risk for perforation for upper endoscopy 3. Correction of micro and macro nutritional deficiencies. 4. Repeat colonoscopy in 3 years due to nondiagnostic colonoscopy due to poor prep. Past Medical History Past Medical History: Chest Pain / Angina, COPD, Diabetes Mellitus, GERD/Reflux, Hyperlipidemia, Hypertension, Osteoarthritis (OA), Skin Disorder, Sleep Apnea/CPAP/BIPAP Additional Past Medical History / Comment(s): Diagnosed with mild pancreatitis on 01/22/19, NIDDM type II, neuropathy bilateral hands/legs/feet, arthritis in multiple joints, bilateral carpal tunnel syndrome, gastric ulcer, ADRIANA-no longer uses device since wt loss, varicose veins, venous dermatitis. History of Any Multi-Drug Resistant Organisms: None Reported Past Surgical History: Adenoidectomy, Appendectomy, Bariatric Surgery, Cholecystectomy, Orthopedic Surgery, Tonsillectomy Additional Past Surgical History / Comment(s): 01/13/15 Lap hcinedu en Y gastric bypass with lysis of adhesions, EGDs, colonoscopies, bilateral knee arthroscopy, bilateral knee replacements, D&C, EGD DONE TODAY-UNABLE TO COMPLETE COLONOSCOPY- BOWELS NOT CLEAR-RESCHEDULED FOR TOMORROW Past Anesthesia/Blood Transfusion Reactions: No Reported Reaction Additional Past Anesthesia/Blood Transfusion Reaction / Comm: Pt is slow to wake from anesthesia. She has received blood in past without reaction. Past Psychological History: Anxiety, Depression Additional Psychological History / Comment(s): Pt resides with her SO. She uses a cane and walker if needed. 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 Smoking Status: Former smoker Past Alcohol Use History: None Reported Additional Past Alcohol Use History / Comment(s): Pt started smoking in 1969 and quit smoking in 2009 Past Drug Use History: None Reported - Past Family History Mother Family Medical History: Cancer, Deep Vein Thrombosis (DVT) Additional Family Medical History / Comment(s): Mother had uterine cancer. Father Family Medical History: Congestive Heart Failure (CHF), Sleep Apnea/CPAP/BIPAP Additional Family Medical History / Comment(s): Father was an alcoholic. He of CHF at the age of 48yrs. Brother(s) Family Medical History: Coronary Artery Disease (CAD) Surgical - Exam Vital Signs Temp Pulse BP 98.6 F 89 109/72 06/29/23 16:50 06/29/23 16:50 06/29/23 16:50 Bariatric Checklist Checklist: Plan: Checklist: EGD: 1. Hiatal hernia: 2. H. Pylori: HgbA1c: Vitamin D: Smoking: Former smoker Primary care physician referral: Psychiatry clearance: Cardiology clearance: Sleep study: Diet journal: VTE risk score: VTE risk level: Rehab needs at discharge:
== END ==
LOC: BARWHC3 06-22 13:54
PROVIDERS: ATTEND Surgery Plastic and Reconstructive Surgery
DX: E66.01 Morbid (severe) obesity due to excess calories (principal); E78.00 Pure hypercholesterolemia, unspecified; E11.9 Type 2 diabetes mellitus without complications; F32.A Depression, unspecified; G47.33 Obstructive sleep apnea (adult) (pediatric); I11.0 Hypertensive heart disease with heart failure; I50.9 Heart failure, unspecified; J44.89 Other specified chronic obstructive pulmonary disease; K21.9 Gastro-esophageal reflux disease without esophagitis; K28.9 Gastrojejunal ulcer, unspecified as acute or chronic, without hemorrhage or perforation; K59.09 Other constipation; M17.0 Bilateral primary osteoarthritis of knee; R13.10 Dysphagia, unspecified; Z68.43 Body mass index [BMI] 50.0-59.9, adult; Z79.51 Long term (current) use of inhaled steroids; Z98.84 Bariatric surgery status; Z79.84 Long term (current) use of oral hypoglycemic drugs; Z87.891 Personal history of nicotine dependence; Z90.3 Acquired absence of stomach [part of]; Z88.0 Allergy status to penicillin; Z88.8 Allergy status to other drugs, medicaments and biological substances; Z91.048 Other nonmedicinal substance allergy status; Z79.899 Other long term (current) drug therapy
CPT/HCPCS: 99211

== ENCOUNTER → 2023-06-30 | Outpatient (CLI) | payer MEDICARE, OTHER ==
[2023-06-30 09:16] LABS: Partial Thromboplastin Time 25.5 sec (22.0-30.0); Prothrombin Time 11.2 sec (10.0-12.5)
[2023-06-30 15:35] LABS: Prealbumin 19.2 mg/dL (18.0-42.0)
[2023-06-30 16:36] LABS: HCT 50.8 % (37.2-46.3); HGB 16.3 g/dL (12.0-15.0); MCH 31.5 pg (27.0-32.0); MCHC 32.1 g/dL (32.0-37.0); MCV 98.1 FL (80.0-97.0); Mean Platelet Volume 10.6 FL (9.5-12.2); NRBC Per 100 WBC 0 X 10*3/uL (0.00-0.01); Platelet Count 238 X 10*3/uL (140-440); RBC 5.18 X 10*6/uL (4.10-5.20); RDW 13.7 % (11.5-14.5); WBC 8.14 X 10*3/uL (4.50-10.00)
[2023-06-30 17:34] LABS: Chol/HDL Ratio 1.77 Ratio; Magnesium 1.6 mg/dL (1.5-2.4)
[2023-06-30 17:35] LABS: ALT 13 U/L (8-44); AST 28 U/L (13-35); Albumin 4.1 g/dL (3.8-4.9); Albumin/Globulin Ratio 1.46 Ratio (1.60-3.17); Alkaline Phosphatase 131 U/L (41-126); Blood Urea Nitrogen 18.3 mg/dL (9.0-27.0); Calcium 9.3 mg/dL (8.7-10.3); Carbon Dioxide 29.6 mmol/L (21.6-31.8); Chloride 94 mmol/L (96-109); Globulin 2.8 g/dL (1.6-3.3); Glucose 142 mg/dL (70-110); LDL Cholesterol,Calculated 30.5 mg/dL (0.0-131.0); Phosphorus 3.7 mg/dL (2.4-5.1); Potassium 3.5 mmol/L (3.5-5.5); Sodium 141 mmol/L (135-145); Total Bilirubin 0.7 mg/dL (0.3-1.2); Total Protein 6.9 g/dL (6.2-8.2)
[2023-06-30 19:33] LABS: % Iron Saturation 27.73 (12.00-45.00); Ferritin 81.6 ng/mL (10.0-291.0); Iron 89 UG/DL (50-170); Total Iron Binding Capacity 321 UG/DL (228-460)
[2023-07-01 11:58] LABS: Zinc, Serum 87 ug/dL (60-130)
== END | disposition home or self-care (01) ==
LOC: LABWHC1 07:59
PROVIDERS: ATTEND Surgery Plastic and Reconstructive Surgery
DX: E89.1 Postprocedural hypoinsulinemia (principal); D50.8 Other iron deficiency anemias; K91.2 Postsurgical malabsorption, not elsewhere classified; E44.0 Moderate protein-calorie malnutrition; K74.1 Hepatic sclerosis; N19 Unspecified kidney failure; T56.894A Toxic effect of other metals, undetermined, initial encounter; E66.01 Morbid (severe) obesity due to excess calories; E55.9 Vitamin D deficiency, unspecified; E45 Retarded development following protein-calorie malnutrition; K50.90 Crohn's disease, unspecified, without complications
CPT/HCPCS: 36415; 80053; 80061; 82306; 82525; 82607; 82728; 82746; 83036; 83540; 83550; 83735; 83970; 84100; 84134; 84255; 84425; 84443; 84590; 84630; 85027; 85610; 85730

== ENCOUNTER → 2023-07-18 | Day surgery (SDC) | payer MEDICARE, OTHER ==
[2023-07-13 09:06] VITALS: BMI 30.7
[~2023-07-18] MED LIST changes: +LIDOCAINE 1% (10MG/ML) FOR IV START INTRADERMA PRN
--- NOTE | 2023-07-18 07:19 | P.GSHP ---
History of Present Illness H&P Date: 07/18/23 CHIEF COMPLAINT: Dysphagia HISTORY OF PRESENT ILLNESS: The patient is a 67-year-old female who presents with dysphagia for over 6-months. Upper endoscopy was offered for further evaluation and management. PAST MEDICAL HISTORY: Please see list. PAST SURGICAL HISTORY: Please see list. MEDICATIONS: Please see list. ALLERGIES: Please see list. SOCIAL HISTORY: No illicit drug use FAMILY HISTORY: No reports of Crohn disease or ulcerative colitis. REVIEW OF ORGAN SYSTEMS: CONSTITUTIONAL: No reports of fevers or chills. GI: Denies any blood in stools or constipation. PHYSICAL EXAM: VITAL SIGNS: Stable GENERAL: Well-developed and pleasant in no acute distress. HEENT: No scleral icterus. Extraocular movements grossly intact. Moist buccal mucosa. NECK: Supple without lymphadenopathy. CHEST: Unlabored respirations. Equal bilateral excursions. CARDIOVASCULAR: Regular rate and rhythm. Distal 2+ pulses. ABDOMEN: Soft, nondistended. MUSCULOSKELETAL: No clubbing, cyanosis, or edema. ASSESSMENT: 1. Dysphagia PLAN: 1. Recommend proceeding with an upper endoscopy Past Medical History Past Medical History: Chest Pain / Angina, COPD, Diabetes Mellitus, GERD/Reflux, Hyperlipidemia, Hypertension, Osteoarthritis (OA), Skin Disorder, Sleep Apnea/CPAP/BIPAP Additional Past Medical History / Comment(s): Diagnosed with mild pancreatitis on 01/22/19, NIDDM type II, neuropathy bilateral hands/legs/feet, arthritis in multiple joints, bilateral carpal tunnel syndrome, gastric ulcer, ADRIANA-no longer uses device since wt loss, varicose veins, venous dermatitis. History of Any Multi-Drug Resistant Organisms: None Reported Past Surgical History: Adenoidectomy, Appendectomy, Bariatric Surgery, Cholecystectomy, Orthopedic Surgery, Tonsillectomy Additional Past Surgical History / Comment(s): 01/13/15 Lap laila en Y gastric bypass with lysis of adhesions, EGDs, colonoscopies, bilateral knee arthroscopy, bilateral knee replacements, D&C, EGD Past Anesthesia/Blood Transfusion Reactions: No Reported Reaction Additional Past Anesthesia/Blood Transfusion Reaction / Comment(s): Pt is slow to wake from anesthesia. She has received blood in past without reaction. Smoking Status: Former smoker - Past Family History Mother Family Medical History: Cancer, Deep Vein Thrombosis (DVT) Additional Family Medical History / Comment(s): Mother had uterine cancer. Father Family Medical History: Congestive Heart Failure (CHF), Sleep Apnea/CPAP/BIPAP Additional Family Medical History / Comment(s): Father was an alcoholic. He of CHF at the age of 48yrs. Brother(s) Family Medical History: Coronary Artery Disease (CAD) Medications and Allergies Home Medications Medication Instructions Recorded Confirmed Type Tiotropium 2.5 Mcg/Puff [Spiriva 2 puff INHALATION RT-DAILY 08/25/21 07/13/23 History Respimat 2.5 Mcg] Albuterol Sulfate [Albuterol 2 puff INHALATION RT-Q6H PRN 09/19/21 07/13/23 History Sulfate Hfa] Acetaminophen Tab [Tylenol] 650 mg PO Q6HR PRN #30 tab 09/30/21 07/13/23 Rx Metoprolol Tartrate [Lopressor] 25 mg PO BID 30 Days #60 tab 09/30/21 07/13/23 Rx Sennosides [Senokot] 8.6 mg PO BID PRN tab 09/30/21 07/13/23 Rx Atorvastatin Calcium [Lipitor] 40 mg PO HS 12/07/21 07/13/23 History Omeprazole 20 mg PO BID 12/07/21 07/13/23 History Ondansetron Odt [Zofran ODT] 4 mg PO BID PRN 12/07/21 07/13/23 History QUEtiapine FUMARATE [SEROquel] 25 mg PO HS 12/07/21 07/13/23 History metFORMIN HCL 1,000 mg PO BID 12/07/21 07/13/23 History Budesonide/Formoterol Fumarate 2 puff INHALATION RT-BID 02/17/22 07/13/23 History [Symbicort 160-4.5 Mcg Inhaler] Dapagliflozin Propanediol [Farxiga] 10 mg PO QAM 02/17/22 07/13/23 History Carboxymethylcellulose Sodium 1 drop BOTH EYES QID PRN 08/01/22 07/13/23 History [Refresh Tears] Furosemide [Lasix] 40 mg PO QAM 08/01/22 07/13/23 History sitaGLIPtin [Januvia] 100 mg PO DAILY 08/01/22 07/13/23 History Lactulose [Cephulac] 30 gm PO BID #240 ml 06/01/23 07/13/23 Rx Magnesium Hydroxide [Milk of 30 ml PO BID #240 ml 06/01/23 07/13/23 Rx Magnesia] Peg 3350 (420 gm/Btl) + Lytes 2,000 ml PO DIRECTED #1 ml 06/01/23 07/13/23 Rx [Nulytely] Sucralfate [Carafate] 1 gm PO BID #120 tablet 06/29/23 07/13/23 Rx Allergies Allergy/AdvReac Type Severity Reaction Status Date / Time Penicillins Allergy Severe Anaphylaxis Verified 07/13/23 08:56 cyclosporine [From Restasis] Allergy Rash/Hives Verified 07/13/23 08:56 TRACE METALS Allergy itching,rachna Uncoded 07/13/23 08:56 h
[2023-07-18] MEDS: LACTATED RINGERS 1,000 ML IV SCH (07:24)
[2023-07-18 07:49] LABS: Glucose,Whole Blood 140 mg/dL (70-110)
[2023-07-18 07:51] VITALS: TEMP 98.1
--- NOTE | 2023-07-18 08:17 | P.PCN ---
Date of Procedure: 07/18/23 Description of Procedure: PREOPERATIVE DIAGNOSIS: Dysphagia. History of gastric ulcers POSTOPERATIVE DIAGNOSIS: Gastrojejunal stricture without chronic ulcer without perforation OPERATION: Esophagogastrojejunoscopy with balloon dilatation from 18 mm to 20 mm SURGEON: Nereida Osborne MD ANESTHESIA: MAC. INDICATIONS: The patient is a 47-year-old female who presents with a history of dysphagia and gastric strictures. Benefits and risks of the procedure were described. Informed consent was obtained. DESCRIPTION: The patient was brought into the endoscopy suite and laid in the left lateral decubitus position. After a timeout was confirmed, the procedure was initiated. An Olympus gastroscope was passed along the posterior oropharynx down to the distal esophagus where the squamocolumnar junction was unremarkable. The gastric pouch was entered. A gastrojejunal stricture of 18 mm was found as the adult gastroscope was 9.5 mm in size. A [employer] balloon dilator was placed through the scope. Final insufflation up to 20 mm was performed with a total of 2 minutes. The scope was advanced up to 60 cm from the incisors into the [place] limb. The mucosa of the gastrojejunal anastomosis was intact. No chronic gastrojejunal marginal ulcer was encountered. No full-thickness injury was encountered. The GI tract was desufflated. The patient tolerated the procedure well. FINDINGS: Squamocolumnar junction unremarkable at 37 cm. Stricture of approximately 18 mm encountered. No chronic gastrojejunal ulceration encountered. Successful balloon dilatation to 20 mm. Gastric pouch 37 to 42 cm from the incisors, 5 cm RECOMMENDATIONS: Upper endoscopy as needed. Plan - Discharge Summary Discharge Rx Participant: No New Discharge Prescriptions: Continue Tiotropium 2.5 Mcg/Puff [Spiriva Respimat 2.5 Mcg] 2 puff INHALATION RT-DAILY Albuterol Sulfate [Albuterol Sulfate Hfa] 2 puff INHALATION RT-Q6H PRN PRN Reason: Shortness Of Breath Metoprolol Tartrate [Lopressor] 25 mg PO BID 30 Days #60 tab metFORMIN HCL 1,000 mg PO BID Omeprazole 20 mg PO BID Atorvastatin Calcium [Lipitor] 40 mg PO HS Budesonide/Formoterol Fumarate [Symbicort 160-4.5 Mcg Inhaler] 2 puff INHALATION RT-BID Dapagliflozin Propanediol [Farxiga] 10 mg PO QAM Furosemide [Lasix] 40 mg PO QAM sitaGLIPtin [Januvia] 100 mg PO DAILY Lactulose [Cephulac] 30 gm PO BID #240 ml Peg 3350 (420 gm/Btl) + Lytes [Nulytely] 2,000 ml PO DIRECTED #1 ml Sucralfate [Carafate] 1 gm PO BID #120 tablet Sennosides [Senokot] 8.6 mg PO BID PRN tab PRN Reason: Constipation Acetaminophen Tab [Tylenol] 650 mg PO Q6HR PRN #30 tab PRN Reason: Fever and/ or MILD Pain QUEtiapine FUMARATE [SEROquel] 25 mg PO HS Ondansetron Odt [Zofran ODT] 4 mg PO BID PRN PRN Reason: Nausea Carboxymethylcellulose Sodium [Refresh Tears] 1 drop BOTH EYES QID PRN PRN Reason: Dry Eye(S) Magnesium Hydroxide [Milk of Magnesia] 30 ml PO BID #240 ml Discharge Medication List Tiotropium 2.5 Mcg/Puff [Spiriva Respimat 2.5 Mcg] 2 puff INHALATION RT-DAILY 08/25/21 [History] Albuterol Sulfate [Albuterol Sulfate Hfa] 2 puff INHALATION RT-Q6H PRN 09/19/21 [History] Acetaminophen Tab [Tylenol] 650 mg PO Q6HR PRN #30 tab 09/30/21 [Rx] Metoprolol Tartrate [Lopressor] 25 mg PO BID 30 Days #60 tab 09/30/21 [Rx] Sennosides [Senokot] 8.6 mg PO BID PRN tab 09/30/21 [Rx] Atorvastatin Calcium [Lipitor] 40 mg PO HS 12/07/21 [History] Omeprazole 20 mg PO BID 12/07/21 [History] Ondansetron Odt [Zofran ODT] 4 mg PO BID PRN 12/07/21 [History] QUEtiapine FUMARATE [SEROquel] 25 mg PO HS 12/07/21 [History] metFORMIN HCL 1,000 mg PO BID 12/07/21 [History] Budesonide/Formoterol Fumarate [Symbicort 160-4.5 Mcg Inhaler] 2 puff INHALATION RT-BID 02/17/22 [History] Dapagliflozin Propanediol [Farxiga] 10 mg PO QAM 02/17/22 [History] Carboxymethylcellulose Sodium [Refresh Tears] 1 drop BOTH EYES QID PRN 08/01/22 [History] Furosemide [Lasix] 40 mg PO QAM 08/01/22 [History] sitaGLIPtin [Januvia] 100 mg PO DAILY 08/01/22 [History] Lactulose [Cephulac] 30 gm PO BID #240 ml 06/01/23 [Rx] Magnesium Hydroxide [Milk of Magnesia] 30 ml PO BID #240 ml 06/01/23 [Rx] Peg 3350 (420 gm/Btl) + Lytes [Nulytely] 2,000 ml PO DIRECTED #1 ml 06/01/23 [Rx] Sucralfate [Carafate] 1 gm PO BID #120 tablet 06/29/23 [Rx] Follow up [facility]ment(s[facility] [place] - 08/10/23 2:00 pm Patient Instructions/Handouts: Esophageal Dilation (GEN) Activity/Diet/Wound Care/Special Instructions: Diet as tolerated Discharge Disposition: HOME SELF-CARE
[2023-07-18 08:22] LABS: Glucose,Whole Blood 117 mg/dL (70-110)
[2023-07-18 09:29] VITALS: BP 107/70; PULSE 76; RESP 16
== END | disposition home or self-care (01) ==
LOC: ORWHC2ENDO 07:05
PROVIDERS: ATTEND Surgery Plastic and Reconstructive Surgery
DX: K21.9 Gastro-esophageal reflux disease without esophagitis (principal); Z87.11 Personal history of peptic ulcer disease; J44.9 Chronic obstructive pulmonary disease, unspecified; E11.9 Type 2 diabetes mellitus without complications; I10 Essential (primary) hypertension; E78.5 Hyperlipidemia, unspecified; Z90.89 Acquired absence of other organs; Z90.49 Acquired absence of other specified parts of digestive tract; Z98.890 Other specified postprocedural states; Z87.891 Personal history of nicotine dependence; Z82.49 Family history of ischemic heart disease and other diseases of the circulatory system; Z79.51 Long term (current) use of inhaled steroids; Z79.899 Other long term (current) drug therapy
CPT/HCPCS: 43249; J2001; J2704; C1726

== ENCOUNTER 2024-01-07 08:22 | Emergency (ER) | payer MEDICARE, OTHER ==
[2024-01-07 08:35] VITALS: TEMP 97.7
[2024-01-07] MEDS: SODIUM CHLORIDE 0.9% 1,000 ML IV ONE (08:49)
--- NOTE | 2024-01-07 08:52 | ED ---
Fall HPI - General Chief Complaint: Fall Stated Complaint: Fall Time Seen by Provider: 01/07/24 08:23 Source: patient, EMS, RN notes reviewed Mode of arrival: EMS Limitations: no limitations - History of Present Illness Initial Comments: 68 year old female presents to the ED via EMS with chief complaint of fall. She reports that she fell at home, landing on right forearm, striking left side of head and was unable to get off of the floor. Normally she ambulates with cane. She reports a history of frequent falls, heart attack, and arrhythmia. Today, s he denies loss of consciousness, headache, vision changes, neck pain, or other musculoskeletal weakness/pain. She also denies taking blood thinners, chest pain, palpitations, or shortness of breath. - Related Data Home Medications Medication Instructions Recorded Confirmed Tiotropium 2.5 Mcg/Puff [Spiriva 2 puff INHALATION RT-DAILY 08/25/21 07/18/23 Respimat 2.5 Mcg] Albuterol Sulfate [Albuterol 2 puff INHALATION RT-Q6H PRN 09/19/21 07/18/23 Sulfate Hfa] Atorvastatin Calcium [Lipitor] 40 mg PO HS 12/07/21 07/18/23 Omeprazole 20 mg PO BID 12/07/21 07/18/23 Ondansetron Odt [Zofran ODT] 4 mg PO BID PRN 12/07/21 07/18/23 QUEtiapine FUMARATE [SEROquel] 25 mg PO HS 12/07/21 07/18/23 metFORMIN HCL 1,000 mg PO BID 12/07/21 07/18/23 Budesonide/Formoterol Fumarate 2 puff INHALATION RT-BID 02/17/22 07/18/23 [Symbicort 160-4.5 Mcg Inhaler] Dapagliflozin Propanediol [Farxiga] 10 mg PO QAM 02/17/22 07/18/23 Carboxymethylcellulose Sodium 1 drop BOTH EYES QID PRN 08/01/22 07/18/23 [Refresh Tears] Furosemide [Lasix] 40 mg PO QAM 08/01/22 07/18/23 sitaGLIPtin [Januvia] 100 mg PO DAILY 08/01/22 07/18/23 Previous Rx's Medication Instructions Recorded Acetaminophen Tab [Tylenol] 650 mg PO Q6HR PRN #30 tab 09/30/21 Metoprolol Tartrate [Lopressor] 25 mg PO BID 30 Days #60 tab 09/30/21 Sennosides [Senokot] 8.6 mg PO BID PRN tab 09/30/21 Lactulose [Cephulac] 30 gm PO BID #240 ml 06/01/23 Magnesium Hydroxide [Milk of 30 ml PO BID #240 ml 06/01/23 Magnesia] Peg 3350 (420 gm/Btl) + Lytes 2,000 ml PO DIRECTED #1 ml 06/01/23 [Nulytely] Sucralfate [Carafate] 1 gm PO BID #120 tablet 06/29/23 Allergies Allergy/AdvReac Type Severity Reaction Status Date / Time Penicillins Allergy Severe Anaphylaxis Verified 01/07/24 08:31 cyclosporine [From Restasis] Allergy Rash/Hives Verified 01/07/24 08:31 TRACE METALS Allergy itching,rachna Uncoded 01/07/24 08:31 h Review of Systems ROS Statement: Those systems with pertinent positive or pertinent negative responses have been documented in the HPI. ROS Other: All systems not noted in ROS Statement are negative. Past Medical History Past Medical History: Chest Pain / Angina, COPD, Diabetes Mellitus, GERD/Reflux, Hyperlipidemia, Hypertension, Osteoarthritis (OA), Skin Disorder, Sleep Apnea/CPAP/BIPAP Additional Past Medical History / Comment(s): Diagnosed with mild pancreatitis on 01/22/19, NIDDM type II, neuropathy bilateral hands/legs/feet, arthritis in multiple joints, bilateral carpal tunnel syndrome, gastric ulcer, ADRIANA-no longer uses device since wt loss, varicose veins, venous dermatitis. History of Any Multi-Drug Resistant Organisms: None Reported Past Surgical History: Adenoidectomy, Appendectomy, Bariatric Surgery, Cholecystectomy, Orthopedic Surgery, Tonsillectomy Additional Past Surgical History / Comment(s): 01/13/15 Lap laila en Y gastric bypass with lysis of adhesions, EGDs, colonoscopies, bilateral knee arthroscopy, bilateral knee replacements, D&C, EGD Past Anesthesia/Blood Transfusion Reactions: No Reported Reaction Additional Past Anesthesia/Blood Transfusion Reaction / Comment(s): Pt is slow to wake from anesthesia. She has received blood in past without reaction. Past Psychological History: Anxiety, Depression Smoking Status: Former smoker - Past Family History Mother Family Medical History: Cancer, Deep Vein Thrombosis (DVT) Additional Family Medical History / Comment(s): Mother had uterine cancer. Father Family Medical History: Congestive Heart Failure (CHF), Sleep Apnea/CPAP/BIPAP Additional Family Medical History / Comment(s): Father was an alcoholic. He of CHF at the age of 48yrs. Brother(s) Family Medical History: Coronary Artery Disease (CAD) General Exam Limitations: no limitations General appearance: alert, in no apparent distress Head exam: Present: atraumatic, normocephalic, normal inspection Eye exam: Present: normal appearance, PERRL, EOMI. Absent: scleral icterus, conjunctival injection, periorbital swelling ENT exam: Present: normal exam, mucous membranes moist Neck exam: Present: normal inspection. Absent: tenderness, meningismus, lymphadenopathy Respiratory exam: Present: normal lung sounds bilaterally. Absent: respiratory distress, wheezes, rales, rhonchi, stridor Cardiovascular Exam: Present: regular rate, normal rhythm, normal heart sounds. Absent: systolic murmur, diastolic murmur, rubs, gallop, clicks GI/Abdominal exam: Present: soft, normal bowel sounds. Absent: distended, tenderness, guarding, rebound, rigid Extremities exam: Present: normal inspection, full ROM, normal capillary refill. Absent: tenderness, pedal edema, joint swelling, calf tenderness Right Forearm Wrist exam: Present: abrasion, erythema (Skin tears x 2 lateral forearm) Back exam: Present: normal inspection Neurological exam: Present: alert, oriented X3, CN II-XII intact Psychiatric exam: Present: normal affect, normal mood Skin exam: Present: warm, dry, intact, normal color. Absent: rash Course Vital Signs 01/07/24 01/07/24 01/07/24 08:26 09:31 10:00 Temperature 97.7 F Pulse Rate 61 72 67 Respiratory 17 18 17 Rate Blood Pressure 84/53 121/61 136/84 O2 Sat by Pulse 95 97 99 Oximetry Medical Decision Making - Medical Decision Making Was pt. sent in by a medical professional or institution (, PA, INSTALLATION COORDINATOR, urgent care, hospital, or retirement...) When possible be specific @ -No Did you speak to anyone other than the patient for history (EMS, parent, family, police, friend...)? What history was obtained from this source @ -No Did you review nursing and triage notes (agree or disagree)? Why? @ -I reviewed and agree with nursing and triage notes Were old charts reviewed (outside hosp., previous admission, EMS record, old EKG, old radiological studies, urgent care reports/EKG's, retirement records)? Report findings @ -No old charts were reviewed Differential Diagnosis (chest pain, altered mental status, abdominal pain women, abdominal pain men, vaginal bleeding, weakness, fever, dyspnea, syncope, headache, dizziness, GI bleed, back pain, seizure, CVA, palpatations, mental health, musculoskeletal)? @ -Differential Weakness: Hypoglycemia, shock, sepsis, hyponatremia, anemia, infection, VA, ETOH, adverse medicine reaction, overdose, stroke, this is not meant to be an all-inclusive list. EKG interpreted by me (3pts min.). @ -As above X-rays interpreted by me (1pt min.). @ -Chest x-ray shows no acute cardiopulmonary process X-ray knee soft tissue swelling noted CT interpreted by me (1pt min.). @ -CT brain, C-spine showing no acute intracranial hemorrhage, mass effect or cervical fracture U/S interpreted by me (1pt. min.). @ -None done What testing was considered but not performed or refused? (CT, X-rays, U/S, labs)? Why? @ -None What meds were considered but not given or refused? Why? @ -None Did you discuss the management of the patient with other professionals (professionals i.e. , PA, INSTALLATION COORDINATOR, lab, RT, psych nurse, social service manager, fish bait picker, teacher, residential care officer, family preservation caseworker)? Give summary @ -No Was smoking cessation discussed for >3mins.? @ -No Was critical care preformed (if so, how long)? @ -No Were there social determinants of health that impacted care today? How? (Ho melessness, low income, unemployed, alcoholism, drug addiction, transportation, low edu. Level, literacy, decrease access to med. care, fpc, rehab)? @ -No Was there de-escalation of care discussed even if they declined (Discuss DNR or withdrawal of care, Hospice)? DNR status @ -No What co-morbidities impacted this encounter? (DM, HTN, Smoking, COPD, CAD, Cancer, CVA, ARF, Chemo, Hep., AIDS, mental health diagnosis, sleep apnea, morbid obesity)? @ -None Was patient admitted / discharged? Hospital course, mention meds given and route, prescriptions, significant lab abnormalities, going to OR and other pertinent info. @ -Discharge patient presented after 2 falls this week patient initially had some mild hypotension which resolved. Patient has no signs of infection denies any chest pain or shortness of breath. Patient feels comfortable discharge requesting discharge. Undiagnosed new problem with uncertain prognosis? @ -No Drug Therapy requiring intensive monitoring for toxicity (Heparin, Nitro, Insulin, Cardizem)? @ -No Were any procedures done? @ -No Diagnosis/symptom? @ falls, weakness Acute, or Chronic, or Acute on Chronic? @ -acute Uncomplicated (without systemic symptoms) or Complicated (systemic symptoms)? @ -uncomplicated Side effects of treatment? @ -No Exacerbation, Progression, or Severe Exacerbation? @ -No Poses a threat to life or bodily function? How? (Chest pain, USA, VA, pneumonia, PE, COPD, DKA, ARF, appy, cholecystitis, CVA, Diverticulitis, Homicidal, Suicida l, threat to staff... and all critical care pts) @ -No - Lab Data Result diagrams: 01/07/24 08:32 01/07/24 08:32 Lab Results 01/07/24 01/07/24 01/07/24 Range/Units 08:32 08:32 08:32 WBC 7.1 (3.8-10.6) k/uL RBC 4.28 (3.80-5.40) m/uL Hgb 13.6 (11.4-16.0) gm/dL Hct 43.7 (34.0-46.0) % MCV 102.1 H (80.0-100.0) fL MCH 31.8 (25.0-35.0) pg MCHC 31.1 (31.0-37.0) g/dL RDW 13.7 (11.5-15.5) % Plt Count 215 (150-450) k/uL MPV 7.9 Neutrophils % 73 % Lymphocytes % 16 % Monocytes % 7 % Eosinophils % 2 % Basophils % 0 % Neutrophils # 5.2 (1.3-7.7) k/uL Lymphocytes # 1.1 (1.0-4.8) k/uL Monocytes # 0.5 (0-1.0) k/uL Eosinophils # 0.2 (0-0.7) k/uL Basophils # 0.0 (0-0.2) k/uL Hypochromasia Slight Macrocytosis Slight PT 11.2 (10.0-12.5) sec INR 1.0 (<1.2) APTT 24.9 (22.0-30.0) sec Sodium 142 (137-145) mmol/L Potassium 3.8 (3.5-5.1) mmol/L Chloride 103 (98-107) mmol/L Carbon Dioxide 35 H (22-30) mmol/L Anion Gap 4 mmol/L BUN 24 H (7-17) mg/dL Creatinine 0.84 (0.52-1.04) mg/dL Est GFR (CKD-EPI)AfAm 82 (>60 ml/min/1.73 sqM) Est GFR (CKD-EPI)NonAf 71 (>60 ml/min/1.73 sqM) Glucose 164 H (74-99) mg/dL Plasma Lactic Acid Bradly (0.7-2.0) mmol/L Calcium 9.1 (8.4-10.2) mg/dL Magnesium 1.7 (1.6-2.3) mg/dL Total Bilirubin 0.5 (0.2-1.3) mg/dL AST 36 (14-36) U/L ALT 19 (4-34) U/L Alkaline Phosphatase 98 (38-126) U/L Troponin I (0.000-0.034) ng/mL Total Protein 6.3 (6.3-8.2) g/dL Albumin 3.4 L (3.5-5.0) g/dL Urine Color Urine Appearance (Clear) Urine pH (5.0-8.0) Ur Specific [place] (1.001-1.035) Urine Protein (Negative) Urine Glucose (UA) (Negative) Urine Ketones (Negative) Urine Blood (Negative) Urine Nitrite (Negative) Urine Bilirubin (Negative) Urine Urobilinogen (<2.0) mg/dL Ur Leukocyte Esterase (Negative) 01/07/24 01/07/24 01/07/24 Range/Units 08:34 08:34 08:39 WBC (3.8-10.6) k/uL RBC (3.80-5.40) m/uL Hgb (11.4-16.0) gm/dL Hct (34.0-46.0) % MCV (80.0-100.0) fL MCH (25.0-35.0) pg MCHC (31.0-37.0) g/dL RDW (11.5-15.5) % Plt Count (150-450) k/uL MPV Neutrophils % % Lymphocytes % % Monocytes % % Eosinophils % % Basophils % % Neutrophils # (1.3-7.7) k/uL Lymphocytes # (1.0-4.8) k/uL Monocytes # (0-1.0) k/uL Eosinophils # (0-0.7) k/uL Basophils # (0-0.2) k/uL Hypochromasia Macrocytosis PT (10.0-12.5) sec INR (<1.2) APTT (22.0-30.0) sec Sodium (137-145) mmol/L Potassium (3.5-5.1) mmol/L Chloride (98-107) mmol/L Carbon Dioxide (22-30) mmol/L Anion Gap mmol/L BUN (7-17) mg/dL Creatinine (0.52-1.04) mg/dL Est GFR (CKD-EPI)AfAm (>60 ml/min/1.73 sqM) Est GFR (CKD-EPI)NonAf (>60 ml/min/1.73 sqM) Glucose (74-99) mg/dL Plasma Lactic Acid Bradly 1.5 (0.7-2.0) mmol/L Calcium (8.4-10.2) mg/dL Magnesium (1.6-2.3) mg/dL Total Bilirubin (0.2-1.3) mg/dL AST (14-36) U/L ALT (4-34) U/L Alkaline Phosphatase (38-126) U/L Troponin I <0.012 (0.000-0.034) ng/mL Total Protein (6.3-8.2) g/dL Albumin (3.5-5.0) g/dL Urine Color Colorless Urine Appearance Clear (Clear) Urine pH 5.5 (5.0-8.0) Ur Specific [place] 1.009 (1.001-1.035) Urine Protein Negative (Negative) Urine Glucose (UA) 3+ H (Negative) Urine Ketones Negative (Negative) Urine Blood Negative (Negative) Urine Nitrite Negative (Negative) Urine Bilirubin Negative (Negative) Urine Urobilinogen <2.0 (<2.0) mg/dL Ur Leukocyte Esterase Negative (Negative) Disposition Clinical Impression: Fall, Weakness Disposition: HOME SELF-CARE Condition: Stable Instructions (If sedation given, give patient instructions): Fall Prevention (ED) Additional Instructions: Please return to the Emergency Department if symptoms worsen or any other concerns. Is patient prescribed a controlled substance at d/c from ED?: No Referrals: Mamadou Gerard DO [Primary Care Provider] - 1-2 days Time of Disposition: 11:06
[2024-01-07 09:06] LABS: Basophils % (A) 0 %; Eosinophils # (A) 0.2 k/uL (0-0.7); Eosinophils % (A) 2 %; HCT 43.7 % (34.0-46.0); HGB 13.6 gm/dL (11.4-16.0); Hypochromasia Slight; Lymphocytes # (A) 1.1 k/uL (1.0-4.8); Lymphocytes % (A) 16 %; MCH 31.8 pg (25.0-35.0); MCHC 31.1 g/dL (31.0-37.0); MCV 102.1 fL (80.0-100.0); Macrocytosis Slight; Mean Platelet Volume 7.9; Monocytes # (A) 0.5 k/uL (0-1.0); Monocytes % (A) 7 %; Neutrophils # (A) 5.2 k/uL (1.3-7.7); Neutrophils % (A) 73 %; Platelet Count 215 k/uL (150-450); RBC 4.28 m/uL (3.80-5.40); RDW 13.7 % (11.5-15.5); WBC 7.1 k/uL (3.8-10.6)
[2024-01-07 09:13] LABS: ALT 19 U/L (4-34); AST 36 U/L (14-36); African American GFR (CKD) 82 (>60 ml/min/1.73 sqM); Albumin 3.4 g/dL (3.5-5.0); Alkaline Phosphatase 98 U/L (38-126); Anion Gap 4 mmol/L; Blood Urea Nitrogen 24 mg/dL (7-17); Calcium 9.1 mg/dL (8.4-10.2); Carbon Dioxide 35 mmol/L (22-30); Chloride 103 mmol/L (98-107); Glucose 164 mg/dL (74-99); Magnesium 1.7 mg/dL (1.6-2.3); Non-African American GFR(CKD) 71 (>60 ml/min/1.73 sqM); Potassium 3.8 mmol/L (3.5-5.1); Sodium 142 mmol/L (137-145); Total Bilirubin 0.5 mg/dL (0.2-1.3); Total Protein 6.3 g/dL (6.3-8.2)
[2024-01-07 09:14] LABS: Partial Thromboplastin Time 24.9 sec (22.0-30.0); Prothrombin Time 11.2 sec (10.0-12.5)
--- NOTE | 2024-01-07 09:17 | XR ---
EXAMINATION TYPE: XR chest 2V DATE OF EXAM: 01/07/2024 9:09 AM COMPARISON: Chest radiographs from 12/08/2021 CLINICAL INDICATION: Female, 68 years old with history of weakness; [facility] TECHNIQUE: XR chest 2V Frontal and lateral views of the chest. FINDINGS: Lungs/Pleura: There is no evidence of pleural effusion, focal consolidation, or pneumothorax. Pulmonary vascularity: Unremarkable. Heart/mediastinum: Cardiomediastinal silhouette is unremarkable. Musculoskeletal: No acute osseous pathology. IMPRESSION: No acute cardiopulmonary disease/process. [facility], , 01/07/2024 9:14 AM
--- NOTE | 2024-01-07 09:18 | XR ---
EXAMINATION TYPE: XR knee complete RT DATE OF EXAM: 01/07/2024 9:14 AM COMPARISON: 11/28/2010 CLINICAL INDICATION: Female, 68 years old with history of Pain; TECHNIQUE: XR knee complete RT views submitted.. FINDINGS: There is edema in the prepatellar space. Fixation hardware appears intact. There may be sma ll joint effusion. IMPRESSION: Prepatellar soft tissue edema, correlate for infection and/or,. [facility], , 01/07/2024 9:16 AM
--- NOTE | 2024-01-07 09:23 | CT ---
EXAMINATION TYPE: CT brain cspine wo con DATE OF EXAM: 01/07/2024 9:09 AM COMPARISON: None. CLINICAL INDICATION: Female, 68 years old with history of pain; fall, pt states she hit her head, no loc TECHNIQUE: Brain: Multiple axial CT images of the brain were obtained without IV contrast. Cspine: Axial CT images from the skull base to the inferior aspect of T2 we obtained without intraven ous contrast. Coronal and sagittal reformatted images were also reviewed. CT DLP: 1416 mGycm, Automated exposure control for dose reduction was used. FINDINGS: Brain: Extra-axial spaces: No abnormal extra-axial fluid collections. Ventricular system: Dilatation in proportion to cerebral atrophy. Cerebral parenchyma: Cerebral atrophy. No acute intraparenchymal hemorrhage or mass effect. The marrero -white junction is well differentiated. Scattered hypoattenuating areas are seen within the white mat ter. Cerebellum: Unremarkable. Mass effect: No evidence of midline shift. Intracranial vasculature: Atherosclerotic calcifications of the intracranial vessels. Soft tissues: Normal. Calvarium/osseous structures: No depressed skull fracture. Paranasal sinuses and mastoid air cells: Clear. Visualized orbits: Bilateral aphakia Cervical spine: Fracture: None. Osseous structures: Multilevel degenerative disc disease changes with endplate spurring and disc oste ophyte complex's. Vertebral alignment: Within normal limits. Spinal canal/Neural Foramina: Disc osteophyte complexes at ?? with at least mild spinal canal stenosi s. Facet joint uncovertebral joint arthropathy scattered throughout the cervical spine with varying d egrees of neural foraminal stenosis. Neck soft tissues: Prevertebral soft tissues are within normal limits. Other: The airway is patent. The lung apices are clear. Calcified thyroid nodules bilaterally. Angula tion of the carotid bifurcations posterior pharynx. IMPRESSION: 1. No acute intracranial process. 2. Nonspecific white matter changes, likely secondary to chronic small vessel ischemic disease. 3. No evidence of cervical spine fracture. 4. Moderate multilevel degenerative disc disease. [facility], , 01/07/2024 9:21 AM
[2024-01-07 10:36] LABS: Appearance,Urine Clear (Clear); Bilirubin,Urine Negative (Negative); Blood,Urine Negative (Negative); Color,Urine Colorless; Glucose,Urine (UA) 3+ (Negative); Ketones,Urine Negative (Negative); Leukocyte Esterase,Urine Negative (Negative); Nitrite,Urine Negative (Negative); PH, Urine 5.5 (5.0-8.0); Protein,Urine Negative (Negative); Specific Gravity,Urine 1.009 (1.001-1.035); Urobilinogen,Urine <2.0 mg/dL (<2.0)
[2024-01-07 10:55] VITALS: RESP 17
[2024-01-07 11:13] VITALS: BP 121/74; PULSE 72
== END 2024-01-07 11:13 | disposition home or self-care (01) ==
LOC: EC 08:22
DX: R53.1 Weakness (principal); I10 Essential (primary) hypertension; W19.XXXA Unspecified fall, initial encounter; Y92.009 Unspecified place in unspecified non-institutional (private) residence as the place of occurrence of the external cause
CPT/HCPCS: 36415; 70450; 71046; 72125; 80053; 81003; 83605; 83735; 84484; 85025; 85610; 85730; 93005; 96360; 99284

== ENCOUNTER 2024-07-20 01:50 | Emergency (ER) | payer MEDICARE ==
--- NOTE | 2024-07-20 02:34 | ED ---
General Adult HPI - General Chief complaint: Weakness Stated complaint: Fall Time Seen by Provider: 07/20/24 02:21 Source: patient Mode of arrival: EMS - History of Present Illness Initial comments: Dictation was produced using [employer] dictation software. please excuse any grammatical, word or spelling errors. Chief Complaint: 68-year-old female presents to the ER for weakness fall History of Present Illness: Patient is 68-year-old female with chronic debility presents emergency department weakness and fall. States that she did not quite fall but slid out of her bed to the ground. She states that she hurt her left great toenail. She states she did hit her arms. Patient complaining of total body pain. She states that she does not have the money to purchase over-the- counter Tylenol. The ROS documented in this emergency department record has been reviewed and con firmed by me. Those systems with pertinent positive or negative responses have been documented in the HPI. All other systems are other negative and/or noncontributory. - Related Data Home Medications Medication Instructions Recorded Confirmed Tiotropium 2.5 Mcg/Puff [Spiriva 2 puff INHALATION RT-DAILY 08/25/21 07/18/23 Respimat 2.5 Mcg] Albuterol Sulfate [Albuterol 2 puff INHALATION RT-Q6H PRN 09/19/21 07/18/23 Sulfate Hfa] Atorvastatin Calcium [Lipitor] 40 mg PO HS 12/07/21 07/18/23 Omeprazole 20 mg PO BID 12/07/21 07/18/23 Ondansetron Odt [Zofran ODT] 4 mg PO BID PRN 12/07/21 07/18/23 QUEtiapine FUMARATE [SEROquel] 25 mg PO HS 12/07/21 07/18/23 metFORMIN HCL 1,000 mg PO BID 12/07/21 07/18/23 Budesonide/Formoterol Fumarate 2 puff INHALATION RT-BID 02/17/22 07/18/23 [Symbicort 160-4.5 Mcg Inhaler] Dapagliflozin Propanediol [Farxiga] 10 mg PO QAM 02/17/22 07/18/23 Carboxymethylcellulose Sodium 1 drop BOTH EYES QID PRN 08/01/22 07/18/23 [Refresh Tears] Furosemide [Lasix] 40 mg PO QAM 08/01/22 07/18/23 sitaGLIPtin [Januvia] 100 mg PO DAILY 08/01/22 07/18/23 Previous Rx's Medication Instructions Recorded Acetaminophen Tab [Tylenol] 650 mg PO Q6HR PRN #30 tab 09/30/21 Metoprolol Tartrate [Lopressor] 25 mg PO BID 30 Days #60 tab 09/30/21 Sennosides [Senokot] 8.6 mg PO BID PRN tab 09/30/21 Lactulose [Cephulac] 30 gm PO BID #240 ml 06/01/23 Magnesium Hydroxide [Milk of 30 ml PO BID #240 ml 06/01/23 Magnesia] Peg 3350 (420 gm/Btl) + Lytes 2,000 ml PO DIRECTED #1 ml 06/01/23 [Nulytely] Sucralfate [Carafate] 1 gm PO BID #120 tablet 06/29/23 Allergies Allergy/AdvReac Type Severity Reaction Status Date / Time Penicillins Allergy Severe Anaphylaxis Verified 07/20/24 02:01 cyclosporine [From Restasis] Allergy Rash/Hives Verified 07/20/24 02:01 TRACE METALS Allergy itching,rachna Uncoded 07/20/24 02:01 h Review of Systems ROS Statement: Those systems with pertinent positive or pertinent negative responses have been documented in the HPI. ROS Other: All systems not noted in ROS Statement are negative. Past Medical History Past Medical History: Chest Pain / Angina, COPD, Diabetes Mellitus, GERD/Reflux, Hyperlipidemia, Hypertension, Osteoarthritis (OA), Skin Disorder, Sleep Ap fredy/CPAP/BIPAP Additional Past Medical History / Comment(s): Diagnosed with mild pancreatitis on 01/22/19, NIDDM type II, neuropathy bilateral hands/legs/feet, arthritis in multiple joints, bilateral carpal tunnel syndrome, gastric ulcer, ADRIANA-no longer uses device since wt loss, varicose veins, venous dermatitis. History of Any Multi-Drug Resistant Organisms: None Reported Past Surgical History: Adenoidectomy, Appendectomy, Bariatric Surgery, Cholecystectomy, Orthopedic Surgery, Tonsillectomy Additional Past Surgical History / Comment(s): 01/13/15 Lap laila en Y gastric bypass with lysis of adhesions, EGDs, colonoscopies, bilateral knee arthroscopy, bilateral knee replacements, D&C, EGD Past Anesthesia/Blood Transfusion Reactions: No Reported Reaction Additional Past Anesthesia/Blood Transfusion Reaction / Comment(s): Pt is slow to wake from anesthesia. She has received blood in past without reaction. Past Psychological History: Anxiety, Depression Smoking Status: Former smoker - Past Family History Mother Family Medical History: Cancer, Deep Vein Thrombosis (DVT) Additional Family Medical History / Comment(s): Mother had uterine cancer. Father Family Medical History: Congestive Heart Failure (CHF), Sleep Apnea/CPAP/BIPAP Additional Family Medical History / Comment(s): Father was an alcoholic. He of CHF at the age of 48yrs. Brother(s) Family Medical History: Coronary Artery Disease (CAD) General Exam - General Exam Comments Initial Comments: PHYSICAL EXAM: General Impression: Alert and oriented x3, not in acute distress HEENT: Normocephalic atraumatic, extra-ocular movements intact, pupils equal and reactive to light bilaterally, mucous membranes moist. Cardiovascular: Heart regular rate and rhythm Chest: Able to complete full sentences, no retractions, no tachypnea Abdomen: abdomen soft, non-tender, non-distended, no organomegaly Musculoskeletal: Pulses present and equal in all extremities, no peripheral edema Motor: no focal deficits noted Neurological: CN II-XII grossly intact, no focal motor or sensory deficits noted Skin: Intact with no visualized rashes Psych: Normal affect and mood Course Vital Signs 07/20/24 07/20/24 07/20/24 01:59 02:30 04:48 Temperature 99.2 F Pulse Rate 95 88 92 Respiratory 18 18 16 Rate Blood Pressure 137/80 157/75 124/75 O2 Sat by Pulse 96 95 95 Oximetry EKG Findings - EKG Comments: EKG Findings:: My EKG interpretation: Ventricular rate 90, sinus rhythm, parable 191, QRS 82, QTc 399. No LA prolongation, no QTC prolongation, no ST or T-wave c hanges noted. Overall, this EKG is unremarkable Medical Decision Making - Medical Decision Making Was pt. sent in by a medical professional or institution (, PA, [employer], urgent care, hospital, or [facility]...) When possible be specific @ -No Did you speak to anyone other than the patient for history (EMS, parent, family, police, friend...)? What history was obtained from this source @ -No Did you review nursing and triage notes (agree or disagree)? Why? @ -I reviewed and agree with nursing and triage notes Were old charts reviewed (outside hosp., previous admission, EMS record, old EKG, old radiological studies, urgent care reports/EKG's, [facility] records)? Report findings @ -No old charts were reviewed Differential Diagnosis (chest pain, altered mental status, abdominal pain women, abdominal pain men, vaginal bleeding, musculoskeletal, weakness, fever, dyspnea, syncope, headache, dizziness, GI bleed, back pain, seizure, CVA, palpatations, mental health)? @ -Differential Weakness: Hypoglycemia, shock, sepsis, hyponatremia, anemia, infection, [place], ETOH, adverse medicine reaction, overdose, stroke, this is not meant to be an all-inclusive list. EKG interpreted by me (3pts min.). @ -EKGs as described above X-rays interpreted by me (1pt min.). @ -Plain films of the elbow pelvis and chest shows no acute processes CT interpreted by me (1pt min.). @ -None done U/S interpreted by me (1pt. min.). @ -None done What testing was considered but not performed or refused? (CT, X-rays, U/S, labs)? Why? @ -None What meds were considered but not given or refused? Why? @ -None Was smoking cessation discussed for >3mins.? @ -No Were there social determinants of health that impacted care today? How? (Homelessness, low income, unemployed, alcoholism, drug addiction, transportation, low edu. Level, literacy, decrease access to med. care, retirement, rehab)? @ -No Was there de-escalation of care discussed even if they declined (Discuss DNR or withdrawal of care, Hospice)? DNR status @ -No What co-morbidities impacted this encounter? (DM, HTN, Smoking, COPD, CAD, Cancer, CVA, ARF, Chemo, Hep., AIDS, mental health diagnosis, sleep apnea, morbid obesity)? @ -None Was patient admitted / discharged? Hospital course, mention meds given and route, prescriptions, significant lab abnormalities, going to OR and other per tinent info. @ -68-year-old female with chronic pain. She had a nonsevere fall. Complains of total body pain. Labs unremarkable. Vital signs stable. States that she cannot afford pain medications. Patient given Tylenol 3 starter pack. Patient discharged advised follow-up with primary care doctor. Did you discuss the management of the patient with other professionals (professionals i.e. , PA, [employer], lab, RT, psych nurse, director of social media marketing, grainer machine, teacher, forestry technical officer, case monitor)? Give summary @ -No Was critical care preformed (if so, how long)? @ -No Undiagnosed new problem with uncertain prognosis? @ -No Drug Therapy requiring intensive monitoring for toxicity (Heparin, Nitro, Insulin, Cardizem)? @ -No Were any procedures done? @ -No Diagnosis/symptom? Acute, or Chronic, or Acute on Chronic? Uncomplicated (without systemic symptoms) or Complicated (systemic symptoms)? @ -Chronic weakness Side effects of treatment? @ -No Exacerbation, Progression, or Severe Exacerbation? @ -No Poses a threat to life or bodily function? How? (Chest pain, [place], [place], pneumonia, PE, COPD, DKA, ARF, appy, cholecystitis, CVA, Diverticulitis, Homicidal, Suicidal, threat to staff... and all critical care pts) @ -No - Lab Data Result diagrams: 07/20/24 02:16 07/20/24 02:16 Lab Results 07/20/24 07/20/24 07/20/24 Range/Units 02:16 02:16 02:16 WBC 8.56 (4.50-10.00) 10*3/uL RBC 3.92 L (4.10-5.20) 10*6/uL Hgb 12.4 (12.0-15.0) g/dL Hct 38.5 (37.2-46.3) % MCV 98.2 H (80.0-97.0) fL MCH 31.6 (27.0-32.0) pg MCHC 32.2 (32.0-37.0) g/dL Plt Count 244 (140-440) 10*3/uL MPV 10.5 (9.5-12.2) fL Immature Gran % (Auto) 0.2 % Neutrophils % 68.2 % Lymphocytes % 20.1 % Monocytes % 8.1 % Eosinophils % 2.5 % Basophils % 0.9 % Immature Gran # 0.02 (0.00-0.04) 10*3/uL Neutrophils # 5.84 (1.80-7.70) 10*3/uL Lymphocytes # 1.72 (0.90-5.00) 10*3/uL Monocytes # 0.69 (0.20-1.00) 10*3/uL Eosinophils # 0.21 (0.04-0.35) 10*3/uL Basophils # 0.08 (0.00-0.10) 10*3/uL PT 11.8 (10.0-12.5) sec INR 1.1 (<1.2) APTT 23.8 (22.0-30.0) sec Sodium 135 L (137-145) mmol/L Potassium 4.1 (3.5-5.1) mmol/L Chloride 102 (98-107) mmol/L Carbon Dioxide 29 (22-30) mmol/L Anion Gap 4 mmol/L BUN 17 (7-17) mg/dL Creatinine 0.67 (0.52-1.04) mg/dL Est GFR (CKD-EPI)AfAm >90 (>60 ml/min/1.73 sqM) Est GFR (CKD-EPI)NonAf >90 (>60 ml/min/1.73 sqM) Glucose 174 H (74-99) mg/dL Calcium 8.9 (8.4-10.2) mg/dL Total Bilirubin 0.7 (0.2-1.3) mg/dL AST 25 (14-36) U/L ALT 13 (4-34) U/L Alkaline Phosphatase 141 H (38-126) U/L Troponin I (0.000-0.034) ng/mL Total Protein 6.2 L (6.3-8.2) g/dL Albumin 3.0 L (3.5-5.0) g/dL 07/20/24 Range/Units 02:16 WBC (4.50-10.00) 10*3/uL RBC (4.10-5.20) 10*6/uL Hgb (12.0-15.0) g/dL Hct (37.2-46.3) % MCV (80.0-97.0) fL MCH (27.0-32.0) pg MCHC (32.0-37.0) g/dL Plt Count (140-440) 10*3/uL MPV (9.5-12.2) fL Immature Gran % (Auto) % Neutrophils % % Lymphocytes % % Monocytes % % Eosinophils % % Basophils % % Immature Gran # (0.00-0.04) 10*3/uL Neutrophils # (1.80-7.70) 10*3/uL Lymphocytes # (0.90-5.00) 10*3/uL Monocytes # (0.20-1.00) 10*3/uL Eosinophils # (0.04-0.35) 10*3/uL Basophils # (0.00-0.10) 10*3/uL PT (10.0-12.5) sec INR (<1.2) APTT (22.0-30.0) sec Sodium (137-145) mmol/L Potassium (3.5-5.1) mmol/L Chloride (98-107) mmol/L Carbon Dioxide (22-30) mmol/L Anion Gap mmol/L BUN (7-17) mg/dL Creatinine (0.52-1.04) mg/dL Est GFR (CKD-EPI)AfAm (>60 ml/min/1.73 sqM) Est GFR (CKD-EPI)NonAf (>60 ml/min/1.73 sqM) Glucose (74-99) mg/dL Calcium (8.4-10.2) mg/dL Total Bilirubin (0.2-1.3) mg/dL AST (14-36) U/L ALT (4-34) U/L Alkaline Phosphatase (38-126) U/L Troponin I <0.012 (0.000-0.034) ng/mL Total Protein (6.3-8.2) g/dL Albumin (3.5-5.0) g/dL Disposition Clinical Impression: Weakness Disposition: HOME SELF-CARE Condition: Fair Instructions (If sedation given, give patient instructions): Weakness (ED) Is patient prescribed a controlled substance at d/c from ED?: No Referrals: Mamadou Gerard DO [Primary Care Provider] - 1-2 days Time of Disposition: 06:10
[2024-07-20] MEDS: ACETAMINOPHEN TAB 500 MG TAB PO STA (02:45)
[2024-07-20 02:48] LABS: Basophils # (A) 0.08 10*3/uL (0.00-0.10); Basophils % (A) 0.9 %; Eosinophils # (A) 0.21 10*3/uL (0.04-0.35); Eosinophils % (A) 2.5 %; HCT 38.5 % (37.2-46.3); HGB 12.4 g/dL (12.0-15.0); Lymphocytes # (A) 1.72 10*3/uL (0.90-5.00); Lymphocytes % (A) 20.1 %; MCH 31.6 pg (27.0-32.0); MCHC 32.2 g/dL (32.0-37.0); MCV 98.2 fL (80.0-97.0); Mean Platelet Volume 10.5 fL (9.5-12.2); Monocytes # (A) 0.69 10*3/uL (0.20-1.00); Monocytes % (A) 8.1 %; Neutrophils # (A) 5.84 10*3/uL (1.80-7.70); Neutrophils % (A) 68.2 %; Platelet Count 244 10*3/uL (140-440); RBC 3.92 10*6/uL (4.10-5.20); RDW 13.3 % (11.5-14.5); WBC 8.56 10*3/uL (4.50-10.00)
[2024-07-20 03:08] LABS: ALT 13 U/L (4-34); AST 25 U/L (14-36); African American GFR (CKD) >90 (>60 ml/min/1.73 sqM); Alkaline Phosphatase 141 U/L (38-126); Anion Gap 4 mmol/L; Blood Urea Nitrogen 17 mg/dL (7-17); Calcium 8.9 mg/dL (8.4-10.2); Carbon Dioxide 29 mmol/L (22-30); Chloride 102 mmol/L (98-107); Glucose 174 mg/dL (74-99); Non-African American GFR(CKD) >90 (>60 ml/min/1.73 sqM); Potassium 4.1 mmol/L (3.5-5.1); Sodium 135 mmol/L (137-145); Total Bilirubin 0.7 mg/dL (0.2-1.3); Total Protein 6.2 g/dL (6.3-8.2)
[2024-07-20 03:19] LABS: INR 1.1 (<1.2); Partial Thromboplastin Time 23.8 sec (22.0-30.0); Prothrombin Time 11.8 sec (10.0-12.5)
[2024-07-20 04:48] VITALS: RESP 16
--- NOTE | 2024-07-20 05:33 | XR ---
EXAMINATION TYPE: XR chest 1V portable DATE OF EXAM: 07/20/2024 COMPARISON: Prior chest x-ray January 07, 2024 CLINICAL INDICATION: Female, 68 years old with history of Weakness; fall injury with pain TECHNIQUE: Single frontal view of the chest is obtained. FINDINGS: There is no focal air space opacity, pleural effusion, or pneumothorax seen. The cardiac silhouette size is stable and upper limits of normal. The osseous structures are intact. IMPRESSION: No acute cardiopulmonary process. No significant change from prior. [facility], Workstation: [facility], 07/20/2024 5:31 AM
--- NOTE | 2024-07-20 05:34 | XR ---
EXAMINATION TYPE: XR pelvis AP view DATE OF EXAM: 07/20/2024 CLINICAL INDICATION: Female, 68 years old with history of fall, pain TECHNIQUE: A single AP view of the pelvis is obtained. COMPARISON: CT abdomen and pelvis July 31, 2022. FINDINGS: There is no acute fracture/dislocation evident in the pelvis. Moderate to advanced degener ative change left hip joint is redemonstrated. Pubic symphysis is intact. Overlying vascular calcifi cation is present. IMPRESSION: There is no acute fracture or dislocation in the pelvis. [facility], Workstation: [facility], 07/20/2024 5:32 AM
--- NOTE | 2024-07-20 05:35 | XR ---
EXAMINATION TYPE: XR elbow complete bilateral DATE OF EXAM: 07/20/2024 COMPARISON: None CLINICAL INDICATION: Female, 68 years old with history of arm soreness, pain after trauma. TECHNIQUE: Frontal, lateral and oblique images of bilateral elbows are obtained. FINDINGS: There is no acute fracture/dislocation evident in either elbow. No abnormal fat pad signs are seen bilaterally. The overlying soft tissue appears unremarkable bilaterally. IMPRESSION: There is no acute displaced elbow fracture bilaterally. [facility], Workstation: [facility], 07/20/2024 5:33 AM
[2024-07-20] MEDS: ACET/COD 300 MG/30 MG STARTER PACK 6 TAB BTL PO STA (06:14)
[2024-07-20 06:16] VITALS: BP 112/68; PULSE 74; TEMP 98.8
== END 2024-07-20 06:20 | disposition home or self-care (01) ==
LOC: EC 01:50
DX: R53.1 Weakness (principal); Z87.891 Personal history of nicotine dependence; Z88.0 Allergy status to penicillin; Z88.8 Allergy status to other drugs, medicaments and biological substances; W06.XXXA Fall from bed, initial encounter
CPT/HCPCS: 36415; 71045; 72170; 80053; 84484; 85025; 85610; 85730; 93005; 99285

== ENCOUNTER 2024-07-31 13:46 | Emergency (ER) | payer MEDICARE ==
--- NOTE | 2024-07-31 13:53 | ED ---
General Adult HPI - General Chief complaint: Upper Respiratory Infection Stated complaint: Generalized pain Time Seen by Provider: 07/31/24 13:58 Source: patient, RN notes reviewed Mode of arrival: ambulatory Limitations: no limitations - History of Present Illness Initial comments: This is a 68-year-old female with history including COPD, DM and gastric bypass presenting for sick symptoms x 2 days. Patient endorses dry cough, congestion, fatigue and significant body aches. Patient also presenting today with fever (100.0 F). Endorses use of ibuprofen with some relief. Patient would also mention dysuria and increased urinary frequency x 7 days. Denies chills, chest pain, dyspnea, abdominal pain, N/V/D, hematuria. Onset/Timin -: days(s) - Related Data Home Medications Medication Instructions Recorded Confirmed Tiotropium 2.5 Mcg/Puff [Spiriva 2 puff INHALATION RT-DAILY 08/25/21 07/18/23 Respimat 2.5 Mcg] Albuterol Sulfate [Albuterol 2 puff INHALATION RT-Q6H PRN 09/19/21 07/18/23 Sulfate Hfa] Atorvastatin Calcium [Lipitor] 40 mg PO HS 12/07/21 07/18/23 Omeprazole 20 mg PO BID 12/07/21 07/18/23 Ondansetron Odt [Zofran ODT] 4 mg PO BID PRN 12/07/21 07/18/23 QUEtiapine FUMARATE [SEROquel] 25 mg PO HS 12/07/21 07/18/23 metFORMIN HCL 1,000 mg PO BID 12/07/21 07/18/23 Budesonide/Formoterol Fumarate 2 puff INHALATION RT-BID 02/17/22 07/18/23 [Symbicort 160-4.5 Mcg Inhaler] Dapagliflozin Propanediol [Farxiga] 10 mg PO QAM 02/17/22 07/18/23 Carboxymethylcellulose Sodium 1 drop BOTH EYES QID PRN 08/01/22 07/18/23 [Refresh Tears] Furosemide [Lasix] 40 mg PO QAM 08/01/22 07/18/23 sitaGLIPtin [Januvia] 100 mg PO DAILY 08/01/22 07/18/23 Previous Rx's Medication Instructions Recorded Acetaminophen Tab [Tylenol] 650 mg PO Q6HR PRN #30 tab 09/30/21 Metoprolol Tartrate [Lopressor] 25 mg PO BID 30 Days #60 tab 09/30/21 Sennosides [Senokot] 8.6 mg PO BID PRN tab 09/30/21 Lactulose [Cephulac] 30 gm PO BID #240 ml 06/01/23 Magnesium Hydroxide [Milk of 30 ml PO BID #240 ml 06/01/23 Magnesia] Peg 3350 (420 gm/Btl) + Lytes 2,000 ml PO DIRECTED #1 ml 06/01/23 [Nulytely] Sucralfate [Carafate] 1 gm PO BID #120 tablet 06/29/23 Ibuprofen [Motrin] 800 mg PO Q8HR PRN #30 tab 07/31/24 Sulfamethox-Tmp 800-160Mg [Bactrim 1 tab PO Q12HR #20 tab 07/31/24 DS 800-160 mg] Allergies Allergy/AdvReac Type Severity Reaction Status Date / Time Penicillins Allergy Severe Anaphylaxis Verified 07/31/24 13:49 cyclosporine [From Restasis] Allergy Rash/Hives Verified 07/31/24 13:49 TRACE METALS Allergy itching,rachna Uncoded 07/31/24 13:49 h Review of Systems ROS Statement: Those systems with pertinent positive or pertinent negative responses have been documented in the HPI. ROS Other: All systems not noted in ROS Statement are negative. Past Medical History Past Medical History: Chest Pain / Angina, COPD, Diabetes Mellitus, GERD/Reflux, Hyperlipidemia, Hypertension, Osteoarthritis (OA), Skin Disorder, Sleep Apnea/CPAP/BIPAP Additional Past Medical History / Comment(s): Diagnosed with mild pancreatitis on 01/22/19, NIDDM type II, neuropathy bilateral hands/legs/feet, arthritis in multiple joints, bilateral carpal tunnel syndrome, gastric ulcer, ADRIANA-no longer uses device since wt loss, varicose veins, venous dermatitis. History of Any Multi-Drug Resistant Organisms: None Reported Past Surgical History: Adenoidectomy, Appendectomy, Bariatric Surgery, Cholecystectomy, Orthopedic Surgery, Tonsillectomy Additional Past Surgical History / Comment(s): 01/13/15 Lap laila en Y gastric bypass with lysis of adhesions, EGDs, colonoscopies, bilateral knee arthroscopy, bilateral knee replacements, D&C, EGD Past Anesthesia/Blood Transfusion Reactions: No Reported Reaction Additional Past Anesthesia/Blood Transfusion Reaction / Comment(s): Pt is slow to wake from anesthesia. She has received blood in past without reaction. Past Psychological History: Anxiety, Depression Smoking Status: Former smoker Past Alcohol Use History: None Reported Past Drug Use History: None Reported - Past Family History Mother Family Medical History: Cancer, Deep Vein Thrombosis (DVT) Additional Family Medical History / Comment(s): Mother had uterine cancer. Father Family Medical History: Congestive Heart Failure (CHF), Sleep Apnea/CPAP/BIPAP Additional Family Medical History / Comment(s): Father was an alcoholic. He of CHF at the age of 48yrs. Brother(s) Family Medical History: Coronary Artery Disease (CAD) General Exam Limitations: no limitations General appearance: alert, in no apparent distress Head exam: Present: atraumatic, normocephalic, normal inspection Eye exam: Present: normal appearance, PERRL, EOMI. Absent: scleral icterus, conjunctival injection, periorbital swelling ENT exam: Present: normal exam, mucous membranes dry, TM's normal bilaterally Neck exam: Present: normal inspection. Absent: tenderness, meningismus, lymphadenopathy Respiratory exam: Present: decreased breath sounds. Absent: respiratory distress, wheezes, rales, rhonchi, stridor, accessory muscle use, prolonged expiratory Cardiovascular Exam: Present: regular rate, normal rhythm, normal heart sounds. Absent: systolic murmur, diastolic murmur, rubs, gallop, clicks GI/Abdominal exam: Present: soft, normal bowel sounds. Absent: distended, tenderness, guarding, rebound, rigid Extremities exam: Present: normal inspection, full ROM, normal capillary refill. Absent: tenderness, pedal edema, joint swelling, calf tenderness Back exam: Present: CVA tenderness (R). Absent: CVA tenderness (L) Neurological exam: Present: alert, oriented X3, CN II-XII intact Psychiatric exam: Present: normal affect, normal mood Skin exam: Present: warm, dry, intact, normal color. Absent: rash Course Vital Signs 07/31/24 07/31/24 07/31/24 13:47 14:25 15:25 Temperature 100 F H 99.6 F Pulse Rate 103 H 93 Respiratory 20 18 18 Rate Blood Pressure 128/86 O2 Sat by Pulse 95 97 Oximetry 07/31/24 17:45 Temperature 98.9 F Pulse Rate 90 Respiratory 18 Rate Blood Pressure 126/82 O2 Sat by Pulse 97 Oximetry Medical Decision Making - Medical Decision Making Was pt. sent in by a medical professional or institution ([facility], [employer] BUSINESS AGENT, urgent care, hospital, or fpc...) When possible be specific @ -No Did you speak to anyone other than the patient for history (EMS, parent, family, police, friend...)? What history was obtained from this source @ -No Did you review nursing and triage notes (agree or disagree)? Why? @ -I reviewed and agree with nursing and triage notes Were old charts reviewed (outside hosp., previous admission, EMS record, old EKG, old radiological studies, urgent care reports/EKG's, fpc records)? Report findings @ -No old charts were reviewed Differential Diagnosis (chest pain, altered mental status, abdominal pain women, abdominal pain men, vaginal bleeding, weakness, fever, dyspnea, syncope, headache, dizziness, GI bleed, back pain, seizure, CVA, palpatations, mental health, musculoskeletal)? @ -Differential Fever: Pneumonia, viral URI, endocarditis, myocarditis, pericarditis, otitis, sinusitis, peritonsillar Abscess, retropharyngeal Abscess, epiglottitis, peritonitis, appendicitis, Noy cystitis, diverticulitis, hepatitis, colitis, UTI, PID, TOA, pyelonephritis, prostatitis, epididymitis, meningitis, encephalitis, pulmonary embolism, CVA, thyroid storm, pancreatitis, adrenal crisis, cavernous sinus thrombosis, this is not meant to be an all-inclusive list. EKG interpreted by me (3pts min.). @ -Not done X-rays interpreted by me (1pt min.). @ - CXR shows no obvious consolidation or pleural effusion with visualization limitations due to body habitus. CT interpreted by me (1pt min.). @ -None done U/S interpreted by me (1pt. min.). @ -None done What testing was considered but not performed or refused? (CT, X-rays, U/S, labs)? Why? @ -None What meds were considered but not given or refused? Why? @ -None Did you discuss the management of the patient with other professionals (professionals i.e. , VIANNEY, [employer]RI BUSINESS AGENT, lab, RT, psych nurse, social media coordinator, outside maintenance worker, teacher, national insurance officer, leather case finisher)? Give summary @ -No Was smoking cessation discussed for >3mins.? @ -No Was critical care preformed (if so, how long)? @ -No Were there social determinants of health that impacted care today? How? (Homelessness, low income, unemployed, alcoholism, drug addiction, transportation, low edu. Level, literacy, decrease access to med. care, long-term, rehab)? @ -No Was there de-escalation of care discussed even if they declined (Discuss DNR or withdrawal of care, Hospice)? DNR status @ -No What co-morbidities impacted this encounter? (DM, HTN, Smoking, COPD, CAD, Cancer, CVA, ARF, Chemo, Hep., AIDS, mental health diagnosis, sleep apnea, morbid obesity)? @ -None Was patient admitted / discharged? Hospital course, mention meds given and route, prescriptions, significant lab abnormalities, going to OR and other pertinent info. @ -Patient initially provided p.o. Tylenol/Motrin for fever as well as IM Decadron. UA positive for UTI and microscopic hematuria along with protein urea and glycosuria. Cepheid test negative. CXR shows no obvious consolidation or pleural effusion with visualization limitations due to body habitus. Patient provided p.o. [place] for significant body aches and initial dose of Bactrim DS for UTI. Remaining Bactrim DS regimen sent to patient's pharmacy as well as Motrin 800 for any ongoing pain/fever.. Discussed patient with Dr. Oconnell. Undiagnosed new problem with uncertain prognosis? @ -No Drug Therapy requiring intensive monitoring for toxicity (Heparin, Nitro, Insulin, Cardizem)? @ -No Were any procedures done? @ -No Diagnosis/symptom? @ -UTI, URI Acute, or Chronic, or Acute on Chronic? @ -Acute Uncomplicated (without systemic symptoms) or Complicated (systemic symptoms)? @ -Complicated Side effects of treatment? @ -No Exacerbation, Progression, or Severe Exacerbation? @ -No Poses a threat to life or bodily function? How? (Chest pain, [place], [place], pneumonia, PE, COPD, DKA, ARF, appy, cholecystitis, CVA, Diverticulitis, Homicidal, Suicidal, threat to staff... and all critical care pts) @ -No - Lab Data Lab Results 07/31/24 07/31/24 Range/Units 13:53 14:42 Urine Color Dark Brown Urine Appearance Turbid H (Clear) Urine pH 6.0 (5.0-8.0) Ur Specific [place] 1.031 (1.001-1.035) Urine Protein 1+ H (Negative) Urine Glucose (UA) 1+ H (Negative) Urine Ketones Negative (Negative) Urine Blood Small H (Negative) Urine Nitrite Positive H (Negative) Urine Bilirubin 1+ H (Negative) Urine Urobilinogen 3.0 (<2.0) mg/dL Ur Leukocyte Esterase Large H (Negative) Urine RBC 15 H (0-5) /hpf Urine WBC 177 H (0-5) /hpf Ur Squamous Epith Cells 6 H (0-4) /hpf Urine Bacteria Many H (None) /hpf Urine Mucus Many H (None) /hpf Influenza Type A (PCR) Not Detected (Not Detectd) Influenza Type B (PCR) Not Detected (Not Detectd) RSV (PCR) Not Detected (Not Detectd) SARS-CoV-2 (PCR) Not Detected (Not Detectd) Disposition Clinical Impression: Upper respiratory tract infection, UTI (urinary tract infection) Disposition: HOME SELF-CARE Condition: Good Instructions (If sedation given, give patient instructions): Urinary Tract Infection in Women (ED), Upper Respiratory Infection (ED) Additional Instructions: Increase water and cranberry juice intake. Honey, warm fluids, humidifier for cough. Alternate Tylenol/Motrin for any fever or pain. Follow-up with PCP for any ongoing or worsening symptoms. Prescriptions: Sulfamethox-Tmp 800-160Mg [Bactrim DS 800-160 mg] 1 tab PO Q12HR #20 tab Ibuprofen [Motrin] 800 mg PO Q8HR PRN #30 tab PRN Reason: Pain Is patient prescribed a controlled substance at d/c from ED?: No Referrals: Mamadou Gerard DO [Primary Care Provider] - 1-2 days Time of Disposition: 17:27
[2024-07-31] MEDS: IBUPROFEN 800 MG TAB PO STA (14:21)
[2024-07-31] MEDS: DEXAMETHASONE SOD PHOSPHATE 4 MG/ML 1 ML VIAL IM STA (14:21)
[2024-07-31] MEDS: ACETAMINOPHEN TAB 500 MG TAB PO STA (14:22)
[2024-07-31 14:57] VITALS: RESP 18
--- NOTE | 2024-07-31 14:57 | XR ---
EXAMINATION TYPE: XR chest 2V DATE OF EXAM: 07/31/2024 2:17 PM COMPARISON: 07/20/2024 CLINICAL INDICATION: Female, 68 years old with history of Cough, fever, , TECHNIQUE: AP and lateral views FINDINGS: Heart is upper limits of normal in size. Diffuse hazy densities relating to AP technique and large pa tient body habitus. Some strandy density at the left base, probably atelectasis remains unchanged. No new consolidation or pleural effusion seen. IMPRESSION: Limitations due to AP technique and large body habitus. No definite acute process. [facility], Workstation: [facility], 07/31/2024 2:55 PM
[2024-07-31 15:46] LABS: Influenza A Not Detected (Not Detectd); Influenza B Not Detected (Not Detectd); RSV Not Detected (Not Detectd)
[2024-07-31] MEDS: HYDROcodone/APAP 7.5-325MG 1 EACH TAB PO ONE (16:30)
[2024-07-31 17:19] LABS: Appearance,Urine Turbid (Clear); Bacteria,Urine Many /hpf; Bilirubin,Urine 1+ (Negative); Blood,Urine Small (Negative); Color,Urine Dark Brown; Glucose,Urine (UA) 1+ (Negative); Ketones,Urine Negative (Negative); Leukocyte Esterase,Urine Large (Negative); Mucus,Urine Many /hpf; Nitrite,Urine Positive (Negative); Protein,Urine 1+ (Negative); RBC,Urine 15 /hpf (0-5); Specific Gravity,Urine 1.031 (1.001-1.035); Squamous Epithelial Cell,Urine 6 /hpf (0-4); WBC,Urine 177 /hpf (0-5)
[2024-07-31] MEDS: SULFAMETHOX-TMP 800-160MG 1 EACH TAB PO STA (17:35)
[2024-07-31 17:46] VITALS: BP 126/82; PULSE 90; TEMP 98.9
== END 2024-07-31 17:46 | disposition home or self-care (01) ==
LOC: EC 13:46
DX: J06.9 Acute upper respiratory infection, unspecified (principal); N39.0 Urinary tract infection, site not specified; J44.9 Chronic obstructive pulmonary disease, unspecified; E11.9 Type 2 diabetes mellitus without complications; Z98.84 Bariatric surgery status; Z11.52 Encounter for screening for COVID-19; Z87.891 Personal history of nicotine dependence; Z88.0 Allergy status to penicillin; Z88.8 Allergy status to other drugs, medicaments and biological substances
CPT/HCPCS: 81001; 87086; 87077; 87186; 87636; 71046; 99284; 96372; J1100

== ENCOUNTER 2024-08-14 09:54 | Inpatient (IN) | payer MEDICARE ==
--- NOTE | 2024-08-14 10:36 | ED ---
General Adult HPI - General Chief complaint: Shortness of Breath Stated complaint: bi lat leg swelling Time Seen by Provider: 08/14/24 10:00 Source: patient, RN notes reviewed, old records reviewed Mode of arrival: wheelchair Limitations: no limitations - History of Present Illness Initial comments: This is a 68-year-old female who presents to the emergency department complaining of difficulty breathing and shortness of breath for the last couple of days. Patient also has noted quite a bit of swelling to her legs. Patient denies chest pain. Patient denies palpitations. Patient has any history of atrial flutter or atrial fibrillation. Patient denies any fever chills or cough. Patient has abdominal pain patient has nausea vomiting. - Related Data Home Medications Medication Instructions Recorded Confirmed Tiotropium 2.5 Mcg/Puff [Spiriva 2 puff INHALATION RT-DAILY 08/25/21 08/14/24 Respimat 2.5 Mcg] Albuterol Sulfate [Albuterol 2 puff INHALATION RT-QID PRN 09/19/21 08/14/24 Sulfate Hfa] Atorvastatin Calcium [Lipitor] 40 mg PO HS 12/07/21 08/14/24 QUEtiapine FUMARATE [SEROquel] 25 mg PO HS 12/07/21 08/14/24 metFORMIN HCL 1,000 mg PO BID 12/07/21 08/14/24 Budesonide/Formoterol Fumarate 2 puff INHALATION RT-BID 02/17/22 08/14/24 [Symbicort 160-4.5 Mcg Inhaler] Furosemide [Lasix] 40 mg PO DAILY 08/01/22 08/14/24 sitaGLIPtin [Januvia] 100 mg PO DAILY 08/01/22 08/14/24 DULoxetine HCL [Cymbalta] 60 mg PO DAILY 08/05/24 08/14/24 Gabapentin 300 mg PO TID 08/05/24 08/14/24 Metoprolol Tartrate [Lopressor] 12.5 mg PO BID 08/05/24 08/14/24 Nitroglycerin Sl Tabs [Nitrostat] 0.4 mg SL Q5M PRN 08/05/24 08/14/24 Previous Rx's Medication Instructions Recorded Ibuprofen [Motrin] 800 mg PO Q8HR PRN #30 tab 07/31/24 Meclizine [Antivert] 25 mg PO TID #20 tab 08/05/24 Allergies Allergy/AdvReac Type Severity Reaction Status Date / Time Penicillins Allergy Severe Anaphylaxis Verified 08/14/24 11:38 cyclosporine [From Restasis] Allergy Rash/Hives Verified 08/14/24 11:38 TRACE METALS Allergy itching,rachna Uncoded 08/14/24 11:38 h Review of Systems ROS Statement: Those systems with pertinent positive or pertinent negative responses have been documented in the HPI. ROS Other: All systems not noted in ROS Statement are negative. Past Medical History Past Medical History: Chest Pain / Angina, COPD, Diabetes Mellitus, GERD/Reflux, Hyperlipidemia, Hypertension, Osteoarthritis (OA), Skin Disorder, Sleep Apnea/CPAP/BIPAP Additional Past Medical History / Comment(s): Diagnosed with mild pancreatitis on 01/22/19, NIDDM type II, neuropathy bilateral hands/legs/feet, arthritis in multiple joints, bilateral carpal tunnel syndrome, gastric ulcer, ADRIANA-no longer uses device since wt loss, varicose veins, venous dermatitis. History of Any Multi-Drug Resistant Organisms: None Reported Past Surgical History: Adenoidectomy, Appendectomy, Bariatric Surgery, Cholecystectomy, Orthopedic Surgery, Tonsillectomy Additional Past Surgical History / Comment(s): 01/13/15 Lap laila en Y gastric bypass with lysis of adhesions, EGDs, colonoscopies, bilateral knee arthroscopy, bilateral knee replacements, D&C, EGD Past Anesthesia/Blood Transfusion Reactions: No Reported Reaction Additional Past Anesthesia/Blood Transfusion Reaction / Comment(s): Pt is slow to wake from anesthesia. She has received blood in past without reaction. Past Psychological History: Anxiety, Depression Smoking Status: Former smoker Past Alcohol Use History: None Reported Past Drug Use History: None Reported - Past Family History Mother Family Medical History: Cancer, Deep Vein Thrombosis (DVT) Additional Family Medical History / Comment(s): Mother had uterine cancer. Father Family Medical History: Congestive Heart Failure (CHF), Sleep Apnea/CPAP/BIPAP Additional Family Medical History / Comment(s): Father was an alcoholic. He of CHF at the age of 48yrs. Brother(s) Family Medical History: Coronary Artery Disease (CAD) General Exam - General Exam Comments Initial Comments: GENERAL: Patient is well-developed and well-nourished. Patient is nontoxic and well- hydrated and is in mild distress. ENT: Neck is soft and supple. No significant lymphadenopathy is noted. Oropharynx is clear. Moist mucous membranes. Neck has full range of motion without eliciting any pain. EYES: The sclera were anicteric and conjunctiva were pink and moist. Extraocular movements were intact and pupils were equal round and reactive to light. Eyelids were unremarkable. PULMONARY: Unlabored respirations. Good breath sounds bilaterally. No audible rales rhonchi or wheezing was noted. CARDIOVASCULAR: Patient is tachycardic at about 140 bpm ABDOMEN: Soft and nontender with normal bowel sounds. SKIN: Skin is clear with no lesions or rashes and otherwise unremarkable. NEUROLOGIC: Patient is alert and oriented x3. Cranial nerves II through XII are grossly intact. Motor and sensory are also intact. Normal speech, volume and content. Symmetrical smile. MUSCULOSKELETAL: Normal extremities with adequate strength and full range of motion. 2+ edema bilaterally LYMPHATICS: No significant lymphadenopathy is noted PSYCHIATRIC: Normal psychiatric evaluation. Limitations: no limitations Course Vital Signs 08/14/24 08/14/24 08/14/24 09:55 11:00 11:17 Temperature 97.6 F Pulse Rate 141 H Pulse Rate [ 72 Dev Manager ] Respiratory 20 18 Rate Blood Pressure 95/65 O2 Sat by Pulse 97 Oximetry 08/14/24 08/14/24 11:19 11:54 Temperature Pulse Rate 69 73 Pulse Rate [ Dev Manager ] Respiratory 17 18 Rate Blood Pressure 81/63 106/54 O2 Sat by Pulse 99 98 Oximetry Medical Decision Making - Medical Decision Making EKG is interpreted by myself. EKG shows sinus tachycardia 137 bpm QRS is 98 QT interval is 266 QTc is 346. Patient's EKG shows no ST segment elevation or depression. Patient's heart rate slowed down so a repeat EKG was done it was interpreted by myself that showed a sinus rhythm at 71 bpm VA was 219 QRS is 88 QT interval is 362 QTc is 384. Patient's EKG shows no ST segment elevation or depression Was pt. sent in by a medical professional or institution ([facility], RENTAL MANAGER, urgent care, hospital, or skilled nursing...) When possible be specific @ -No Did you speak to anyone other than the patient for history (EMS, parent, family, police, friend...)? What history was obtained from this source @ -No Did you review nursing and triage notes (agree or disagree)? Why? @ -I reviewed and agree with nursing and triage notes Were old charts reviewed (outside hosp., previous admission, EMS record, old EKG, old radiological studies, urgent care reports/EKG's, skilled nursing records)? Report findings @ -No old charts were reviewed Differential Diagnosis? @ -Differential Dyspnea: Coronary syndrome, arrhythmia, tamponade, asthma, COPD, pulmonary embolism, pneumonia, pneumothorax, pulmonary effusion, anaphylaxis, diabetic ketoacidosis, flailed chest, pulmonary contusion, diaphragmatic rupture, anemia, neuromuscular, this is not meant to be an all-inclusive list. EKG interpreted by me (3pts min.). @ -As above X-rays interpreted by me (1pt min.). @ -Chest x-ray shows no acute abnormality CT interpreted by me (1pt min.). @ -None done U/S interpreted by me (1pt. min.). @ -None done What testing was considered but not performed or refused? (CT, X-rays, U/S, labs)? Why? @ -None What meds were considered but not given or refused? Why? @ -None Did you discuss the management of the patient with other professionals (professionals i.e. , PA, RENTAL MANAGER, lab, RT, psych nurse, social science manager, bulk sealer operator, teacher, personnel officer, case maker)? Give summary @ -I spoke with [facility] hospitalist agreed to admit the patient admit the patient with admitting orders Was smoking cessation discussed for >3mins.? @ -No Was critical care preformed (if so, how long)? @ -No Were there social determinants of health that impacted care today? How? (Homelessness, low income, unemployed, alcoholism, drug addiction, transportation, low edu. Level, literacy, decrease access to med. care, snf, rehab)? @ -No Was there de-escalation of care discussed even if they declined (Discuss DNR or withdrawal of care, Hospice)? DNR status @ -No What co-morbidities impacted this encounter? (DM, HTN, Smoking, COPD, CAD, Cancer, CVA, ARF, Chemo, Hep., AIDS, mental health diagnosis, sleep apnea, morbid obesity)? @ -None Was patient admitted / discharged? Hospital course, mention meds given and route, prescriptions, significant lab abnormalities, going to OR and other pertinent info. @ -Patient's initial EKG showed either atrial flutter or sinus tachycardia however patient converted shortly after being here to 70 beats a minute so it makes me suspicious for atrial flutter. Patient's creatinine was elevated as was the BNP though the chest x-ray showed no signs of pulmonary edema. Patient will be admitted to [facility] with a consult to cardiology. Undiagnosed new problem with uncertain prognosis? @ -No Drug Therapy requiring intensive monitoring for toxicity (Heparin, Nitro, In sulin, Cardizem)? @ -No Were any procedures done? @ -No Diagnosis/symptom? @ -Tachycardia Acute, or Chronic, or Acute on Chronic? @ -Acute Uncomplicated (without systemic symptoms) or Complicated (systemic symptoms)? @ -Complicated Side effects of treatment? @ -No Exacerbation, Progression, or Severe Exacerbation? @ -No Poses a threat to life or bodily function? How? (Chest pain, USA, CT, pneumonia, PE, COPD, DKA, ARF, appy, cholecystitis, CVA, Diverticulitis, Homicidal, Suicidal, threat to staff... and all critical care pts) @ -No Diagnosis/symptom? @ -Renal failure Acute, or Chronic, or Acute on Chronic? @ -Acute Uncomplicated (without systemic symptoms) or Complicated (systemic symptoms)? @ -Complicated Side effects of treatment? @ -None Exacerbation, Progression, or Severe Exacerbation] @ -No Poses a threat to life or bodily function? @ -No Diagnosis/symptom? @ -Pedal edema Acute, or Chronic, or Acute on Chronic? @ -Acute Uncomplicated (without systemic symptoms) or Complicated (systemic symptoms)? @ -Uncomplicated Side effects of treatment? @ -None Exacerbation, Progression, or Severe Exacerbation] @ -No Poses a threat to life or bodily function? @ -No - Lab Data Result diagrams: 08/14/24 10:44 08/14/24 10:44 Lab Results 08/14/24 08/14/24 08/14/24 Range/Units 10:44 10:44 10:44 WBC 8.77 (4.50-10.00) 10*3/uL RBC 3.59 L (4.10-5.20) 10*6/uL Hgb 11.1 L (12.0-15.0) g/dL Hct 35.5 L (37.2-46.3) % MCV 98.9 H (80.0-97.0) fL MCH 30.9 (27.0-32.0) pg MCHC 31.3 L (32.0-37.0) g/dL Plt Count 219 (140-440) 10*3/uL MPV 9.8 (9.5-12.2) fL Immature Gran % (Auto) 0.5 % Neutrophils % 72.2 % Lymphocytes % 15.3 % Monocytes % 7.4 % Eosinophils % 3.6 % Basophils % 1.0 % Immature Gran # 0.04 (0.00-0.04) 10*3/uL Neutrophils # 6.33 (1.80-7.70) 10*3/uL Lymphocytes # 1.34 (0.90-5.00) 10*3/uL Monocytes # 0.65 (0.20-1.00) 10*3/uL Eosinophils # 0.32 (0.04-0.35) 10*3/uL Basophils # 0.09 (0.00-0.10) 10*3/uL Manual Slide Review Performed Sodium 141 (137-145) mmol/L Potassium 3.8 (3.5-5.1) mmol/L Chloride 111 H (98-107) mmol/L Carbon Dioxide 23 (22-30) mmol/L Anion Gap 7 mmol/L BUN 46 H (7-17) mg/dL Creatinine 1.61 H (0.52-1.04) mg/dL Est GFR (CKD-EPI)AfAm 37 (>60 ml/min/1.73 sqM) Est GFR (CKD-EPI)NonAf 32 (>60 ml/min/1.73 sqM) Glucose 160 H (74-99) mg/dL Plasma Lactic Acid Brdaly 1.6 (0.7-2.0) mmol/L Calcium 8.7 (8.4-10.2) mg/dL Magnesium 1.7 (1.6-2.3) mg/dL Total Bilirubin 0.4 (0.2-1.3) mg/dL AST 28 (14-36) U/L ALT 14 (4-34) U/L Alkaline Phosphatase 141 H (38-126) U/L Troponin I (0.000-0.034) ng/mL NT-Pro-B Natriuret Pep 2940 pg/mL Total Protein 5.8 L (6.3-8.2) g/dL Albumin 2.8 L (3.5-5.0) g/dL 08/14/24 Range/Units 10:44 WBC (4.50-10.00) 10*3/uL RBC (4.10-5.20) 10*6/uL Hgb (12.0-15.0) g/dL Hct (37.2-46.3) % MCV (80.0-97.0) fL MCH (27.0-32.0) pg MCHC (32.0-37.0) g/dL Plt Count (140-440) 10*3/uL MPV (9.5-12.2) fL Immature Gran % (Auto) % Neutrophils % % Lymphocytes % % Monocytes % % Eosinophils % % Basophils % % Immature Gran # (0.00-0.04) 10*3/uL Neutrophils # (1.80-7.70) 10*3/uL Lymphocytes # (0.90-5.00) 10*3/uL Monocytes # (0.20-1.00) 10*3/uL Eosinophils # (0.04-0.35) 10*3/uL Basophils # (0.00-0.10) 10*3/uL Manual Slide Review Sodium (137-145) mmol/L Potassium (3.5-5.1) mmol/L Chloride (98-107) mmol/L Carbon Dioxide (22-30) mmol/L Anion Gap mmol/L BUN (7-17) mg/dL Creatinine (0.52-1.04) mg/dL Est GFR (CKD-EPI)AfAm (>60 ml/min/1.73 sqM) Est GFR (CKD-EPI)NonAf (>60 ml/min/1.73 sqM) Glucose (74-99) mg/dL Plasma Lactic Acid Bradly (0.7-2.0) mmol/L Calcium (8.4-10.2) mg/dL Magnesium (1.6-2.3) mg/dL Total Bilirubin (0.2-1.3) mg/dL AST (14-36) U/L ALT (4-34) U/L Alkaline Phosphatase (38-126) U/L Troponin I <0.012 (0.000-0.034) ng/mL NT-Pro-B Natriuret Pep pg/mL Total Protein (6.3-8.2) g/dL Albumin (3.5-5.0) g/dL Disposition Clinical Impression: Pedal edema, Acute renal failure, Tachycardia Disposition: ADMITTED IP TO THIS HOSP Referrals: Mamadou Gerard DO [Primary Care Provider] - 1-2 days Time of Disposition: 12:53
[2024-08-14 11:14] LABS: Basophils # (A) 0.09 10*3/uL (0.00-0.10); Eosinophils # (A) 0.32 10*3/uL (0.04-0.35); Eosinophils % (A) 3.6 %; HCT 35.5 % (37.2-46.3); HGB 11.1 g/dL (12.0-15.0); Lymphocytes # (A) 1.34 10*3/uL (0.90-5.00); Lymphocytes % (A) 15.3 %; MCH 30.9 pg (27.0-32.0); MCHC 31.3 g/dL (32.0-37.0); MCV 98.9 fL (80.0-97.0); Mean Platelet Volume 9.8 fL (9.5-12.2); Monocytes # (A) 0.65 10*3/uL (0.20-1.00); Monocytes % (A) 7.4 %; Neutrophils # (A) 6.33 10*3/uL (1.80-7.70); Neutrophils % (A) 72.2 %; Platelet Count 219 10*3/uL (140-440); RBC 3.59 10*6/uL (4.10-5.20); RDW 12.7 % (11.5-14.5); WBC 8.77 10*3/uL (4.50-10.00)
--- NOTE | 2024-08-14 11:23 | XR ---
EXAMINATION TYPE: XR chest 2V DATE OF EXAM: 08/14/2024 11:06 AM COMPARISON: Chest radiographs from 07/31/2024 TECHNIQUE: XR chest 2V Frontal and lateral views of the chest. CLINICAL INDICATION:Female, 68 years old with history of difficulty breathing; FINDINGS: Lungs/Pleura: There is no evidence of pleural effusion, focal consolidation, or pneumothorax. Pulmonary vascularity: Unremarkable. Heart/mediastinum: Cardiomediastinal silhouette is prominent in size. Atherosclerotic calcifications are seen in the aorta. Musculoskeletal: Multiple level degenerative disc disease changes seen throughout the spine. IMPRESSION: Chronic changes without acute pulmonary process. No significant change from prior. [facility], , 08/14/2024 11:21 AM
[2024-08-14 11:58] LABS: ALT 14 U/L (4-34); AST 28 U/L (14-36); African American GFR (CKD) 37 (>60 ml/min/1.73 sqM); Albumin 2.8 g/dL (3.5-5.0); Alkaline Phosphatase 141 U/L (38-126); Anion Gap 7 mmol/L; Blood Urea Nitrogen 46 mg/dL (7-17); Calcium 8.7 mg/dL (8.4-10.2); Carbon Dioxide 23 mmol/L (22-30); Chloride 111 mmol/L (98-107); Glucose 160 mg/dL (74-99); Magnesium 1.7 mg/dL (1.6-2.3); Non-African American GFR(CKD) 32 (>60 ml/min/1.73 sqM); Potassium 3.8 mmol/L (3.5-5.1); Sodium 141 mmol/L (137-145); Total Bilirubin 0.4 mg/dL (0.2-1.3); Total Protein 5.8 g/dL (6.3-8.2)
[2024-08-14 12:04] LABS: NT-Pro-B-Type Natriuretic Pept 2940 pg/mL
[2024-08-14] MEDS ORDERED: NITROGLYCERIN SL TABS 0.4 MG TAB SUBLINGUAL PRN (12:53)
[2024-08-14 14:46] LABS: INR 1.1 (<1.2); Partial Thromboplastin Time 23.1 sec (22.0-30.0); Prothrombin Time 11.8 sec (10.0-12.5)
[2024-08-14] MEDS: FUROSEMIDE 10 MG/ML 4 ML VIAL IV SCH (15:52)
[2024-08-14] MEDS: GABAPENTIN 300 MG CAP PO SCH (15:52)
[2024-08-14] MEDS: MECLIZINE 25 MG TAB PO SCH (15:52)
--- NOTE | 2024-08-14 16:26 | HP ---
HISTORY AND PHYSICAL CHIEF COMPLAINT: Shortness of breath, tachycardia, and bilateral leg swelling. HISTORY OF PRESENT ILLNESS: This 68-year-old woman with a past medical history of multiple medical problems including COPD, history of hypertension, hyperlipidemia, and was complaining of bilateral leg swelling. The patient also had difficulty in breathing for the last couple of days. The patient came to the ER, was found to have atrial flutter with 2:1 AV block and the heart rate is 140s and spontaneously reverted to normal sinus rhythm and the patient being closely monitored at this time. There is no history of fever, rigors, or chills. The creatinine is 1.61, which has worsened at this time. PAST MEDICAL HISTORY: History of COPD and diabetes mellitus type 2. Rest of the history and rest of the chart is also reviewed. HOME MEDICATIONS: Reviewed, include Seroquel. Dose and rest of medications reviewed. ALLERGIES: Penicillin. Rest of allergies noted. FAMILY HISTORY: History of DVT in the family. SOCIAL HISTORY: Previous history of smoking. REVIEW OF SYSTEMS: A 14-point review of systems negative except as mentioned earlier. PHYSICAL EXAMINATION: VITAL SIGNS: Pulse is 73, blood pressure 106/52, and respirations 18. HEENT: Conjunctivae normal. NECK: No jugular venous distention. CARDIOVASCULAR: S1, S2. RESPIRATIONS: Breath sounds diminished at the bases. Few scattered rhonchi. ABDOMEN: Soft, obese. LEGS: Bilateral leg edema. NERVOUS SYSTEM: No focal deficits. LABORATORY DATA: Reviewed. ASSESSMENT: 1. Shortness of breath for further evaluation, possibly congestive heart failure with acute exacerbation. 2. Atrial flutter with 2:1 AV block, converted spontaneously to normal sinus rhythm. 3. Chronic kidney disease, stage III. 4. Hypoalbuminemia. 5. History of chronic obstructive pulmonary disease. 6. Diabetes mellitus, type 2. 7. Hypertension. 8. Hyperlipidemia. 9. History of mild pancreatitis. 10.History of gastric bypass. RECOMMENDATIONS AND DISCUSSION: This 68-year-old woman presented with multiple complex medical issues. At this time, I recommend to continue current management and continue symptomatic treatment. Recommend Cardiology consultation. The 2D echo last year was normal. I would recommend repeat 2D echo and continue to monitor. Other than that, home medications will be continued and I would recommend UA with micro. The patient has multiple complex medical issues and cautious diuretics may be used. We will follow the patient closely. Check for proteinuria. Further recommendations to follow. MMODL / IJN: [id number] / ALICIA
[2024-08-14] MEDS: SYMBICORT 160-4.5 MCG INHALER INHALATION SCH (18:37)
[2024-08-14] MEDS: METOPROLOL TARTRATE 12.5 MG TAB PO SCH (21:43)
[2024-08-14] MEDS: QUEtiapine 25 MG TAB PO SCH (21:43)
[2024-08-14] MEDS: ATORVASTATIN 40 MG TAB PO SCH (21:43)
[2024-08-15] MEDS: TIOTROPIUM 2.5 MCG INHALER INHALATION SCH (05:38)
--- NOTE | 2024-08-15 07:26 | CA ---
Transthoracic Echo Report Name: Samantha Priest Age: 68 Gender: F : 1955 Exam Date: 08/14/2024 14:23 Exam Location: [place] [facility] Ht (in): 66 Wt (lb): 200 Ordering Physician: Shelby Linares MD Attending/Referring Phys: Flange Machine Operator Denice Rogers RDCS Procedure CPT: Indications: chf Cardiac Hx: Technical Quality: Very technically difficult study Contrast 1: Definity Total Dose (mL): 2 Contrast 2: Total Dose (mL): MEASUREMENTS (Male / Female) Normal Values 2D ECHO LV Diastolic Diameter PLAX 4.6 cm 4.2 - 5.9 / 3.9 - 5.3 cm LV Systolic Diameter PLAX 3.4 cm IVS Diastolic Thickness 0.9 cm 0.6 - 1.0 / 0.6 - 0.9 cm LVPW Diastolic Thickness 1.0 cm 0.6 - 1.0 / 0.6 - 0.9 cm LV Relative Wall Thickness 0.4 RV Internal Dim ED PLAX 2.6 cm LA Systolic Diameter LX 4.0 cm 3.0 - 4.0 / 2.7 - 3.8 cm LV Diastolic Volume MOD BP 100.6 cm??? 67 - 155 / 56 - 104 cm??? LV Systolic Volume MOD BP 42.2 cm??? 22 - 58 / 19 - 49 cm??? LV Ejection Fraction MOD BP 58.0 % >= 55 % LV Diastolic Volume MOD 4C 102.7 cm??? LV Systolic Volume MOD 4C 46.0 cm??? LV Ejection Fraction MOD 4C 55.2 % LV Diastolic Length 4C 8.2 cm LV Systolic Length 4C 8.0 cm LV Diastolic Volume MOD 2C 93.4 cm??? LV Systolic Volume MOD 2C 32.4 cm??? LV Ejection Fraction MOD 2C 65.3 % LV Diastolic Length 2C 7.7 cm LV Systolic Length 2C 6.5 cm DOPPLER MV Area PHT 4.2 cm??? Mitral E Point Velocity 78.0 cm/s Mitral A Point Velocity 84.6 cm/s Mitral E to A Ratio 0.9 MV Deceleration Time 180.4 ms TR Peak Velocity 276.9 cm/s TR Peak Gradient 30.7 mmHg FINDINGS Left Ventricle Left ventricular ejection fraction is estimated at 55-60 %. Normal left ventricular systolic function with no obvious regional wall motion abnormalities. Left ventricular cavity size normal. Right Ventricle Normal right ventricular size. Right ventricular systolic pressure within normal limits. Right Atrium Normal right atrial size. Left Atrium Mildly increased left atrial diameter. Mitral Valve Structurally normal mitral valve. No mitral stenosis. Trace to mild mitral regurgitation. Aortic Valve Aortic valve not well visualized. No aortic stenosis. Mild aortic regurgitation. Tricuspid Valve Tricuspid valve not well visualized. . No tricuspid stenosis. Trace to mild tricuspid regurgitation. Pulmonic Valve Pulmonic valve not well visualized. Pericardium No pericardial effusion. Aorta Aortic annulus normal. CONCLUSIONS Technically difficult study. Definity ECHO contrast used for improved visualization of the endocardial borders (inadequate visualization of two or more contiguous segments). Normal left ventricular size and systolic function Limited Doppler study Mild aortic regurgitation Trace to mild mitral and tricuspid regurgitation Previewed by: Dr. Irlanda Martinez MD (Electronically Signed) Final Date: 15 August 2024 07:25
--- NOTE | 2024-08-15 08:31 | P.CRDCN ---
History of Present Illness Consult date: 08/15/24 History of present illness: History of Present Illness: The patient is a 68-year-old female, followed by Dr. Aguilar with a history of hyperlipidemia, diabetes, hypertension who presents with symptoms of progressive dyspnea and worsening peripheral edema that has been going on for a while but worse recently. The patient is very limited in her physical activity. Danny castro to the notes on presentation she was noted to be in atrial flutter and subsequently converted to sinus mechanism although because of computer issue I cannot review the EKG and atrial flutter. The only EKG available to me she is in sinus mechanism. Patient did not feel any palpitations had no chest discomfort but feels dizzy and that has been chronic. She has prior history of paroxysmal atrial flutter has been anticoagulated in the past but according to her it was stopped. She has a prior history of chronic kidney disease as well has thrombocytopenia that apparently improved. She has been followed by hematology. She underwent coronary angiography in 2019 and had no evidence of significant obstructive disease. The patient denies any PND, orthopnea or syncope. On presentation her troponin. Her NT proBNP is 2940 and she has evidence of acute kidney injury, it was normal on 05 August. Her platelets count is 219. She had an echocardiogram that was technically difficult but showed a preserved left ventricular systolic function. Medications: Seroquel, atorvastatin 40 mg daily, Januvia, metformin 1 g twice a day, metoprolol 12.5 mg twice a day, Lasix 40 mg daily, Cymbalta, Symbicort Review of Systems: Respiratory: She has dyspnea on exertion and cough GI: No nausea or vomiting . No history of peptic ulcer disease. No recent GI bleed. : No hematuria or dysuria. Nervous System: No stroke or seizure. Physical Examination: 68-year-old female, alert oriented no apparent distress, obese,Blood pressure 130/69, Heart rate heart rate 70 Head: Normocephalic. Eyes: Sclerae nonicteric. Neck: Good carotid upstroke, no bruit, no jugular venous distention. Lungs: Clear to auscultation. Heart: Regular rate and rhythm, S1-S2, no S3, no rub. Systolic ejection murmur. Abdomen: Soft nontender, positive bowel sounds no organomegaly. Extremities: +2 edema,, mild redness, intact distal pulses. Labs: Hemoglobin 11.1, platelets count 219. BUN 46, creatinine 1.61. NT proBNP 2940. Chest x-ray with no acute changes EKG: Sinus mechanism with no acute ST segment changes Impression: 1. Symptoms of progressive dyspnea and worsening peripheral edema, probable CHF with preserved systolic function 2. Acute renal injury 3. Prior history of paroxysmal flutter, was anticoagulated in the past. 4. Prior history of thrombocytopenia, resolved 5. Obesity 6. Hyperlipidemia 7. Diabetes Plan: 1. IV diuretics 2. Reinitiate anticoagulation 3. Follow renal functions 4. Add Jardiance 5. Depending on her progress further recommendations will be made Past Medical History Past Medical History: Chest Pain / Angina, COPD, Diabetes Mellitus, GERD/Reflux, Hyperlipidemia, Hypertension, Osteoarthritis (OA), Skin Disorder, Sleep Apnea/CPAP/BIPAP Additional Past Medical History / Comment(s): Diagnosed with mild pancreatitis on 01/22/19, NIDDM type II, neuropathy bilateral hands/legs/feet, arthritis in multiple joints, bilateral carpal tunnel syndrome, gastric ulcer, ADRIANA-no longer uses device since wt loss, varicose veins, venous dermatitis. History of Any Multi-Drug Resistant Organisms: None Reported Past Surgical History: Adenoidectomy, Appendectomy, Bariatric Surgery, Cholecystectomy, Orthopedic Surgery, Tonsillectomy Additional Past Surgical History / Comment(s): 01/13/15 Lap laila en Y gastric bypass with lysis of adhesions, EGDs, colonoscopies, bilateral knee arthroscopy, bilateral knee replacements, D&C, EGD Past Anesthesia/Blood Transfusion Reactions: No Reported Reaction Additional Past Anesthesia/Blood Transfusion Reaction / Comment(s): Pt is slow to wake from anesthesia. She has received blood in past without reaction. Past Psychological History: Anxiety, Depression Additional Psychological History / Comment(s): Pt resides with her SO. She uses a cane and walker if needed. She has never had a [place] driver's license- her SO takes her to [email or web address]. Smoking Status: Former smoker Past Alcohol Use History: None Reported Additional Past Alcohol Use History / Comment(s): Pt started smoking in 1969 and quit smoking in 2009 Past Drug Use History: None Reported - Past Family History Mother Family Medical History: Cancer, Deep Vein Thrombosis (DVT) Additional Family Medical History / Comment(s): Mother had uterine cancer. Father Family Medical History: Congestive Heart Failure (CHF), Sleep Apnea/CPAP/BIPAP Additional Family Medical History / Comment(s): Father was an alcoholic. He of CHF at the age of 48yrs. Brother(s) Family Medical History: Coronary Artery Disease (CAD) Medications and Allergies Home Medications Medication Instructions Recorded Confirmed Type Tiotropium 2.5 Mcg/Puff [Spiriva 2 puff INHALATION RT-DAILY 08/25/21 08/14/24 History Respimat 2.5 Mcg] Albuterol Sulfate [Albuterol 2 puff INHALATION RT-QID PRN 09/19/21 08/14/24 History Sulfate Hfa] Atorvastatin Calcium [Lipitor] 40 mg PO HS 12/07/21 08/14/24 History QUEtiapine FUMARATE [SEROquel] 25 mg PO HS 12/07/21 08/14/24 History metFORMIN HCL 1,000 mg PO BID 12/07/21 08/14/24 History Budesonide/Formoterol Fumarate 2 puff INHALATION RT-BID 02/17/22 08/14/24 History [Symbicort 160-4.5 Mcg Inhaler] Furosemide [Lasix] 40 mg PO DAILY 08/01/22 08/14/24 History sitaGLIPtin [Januvia] 100 mg PO DAILY 08/01/22 08/14/24 History Ibuprofen [Motrin] 800 mg PO Q8HR PRN #30 tab 07/31/24 08/14/24 Rx DULoxetine HCL [Cymbalta] 60 mg PO DAILY 08/05/24 08/14/24 History Gabapentin 300 mg PO TID 08/05/24 08/14/24 History Meclizine [Antivert] 25 mg PO TID #20 tab 08/05/24 08/14/24 Rx Metoprolol Tartrate [Lopressor] 12.5 mg PO BID 08/05/24 08/14/24 History Nitroglycerin Sl Tabs [Nitrostat] 0.4 mg SL Q5M PRN 08/05/24 08/14/24 History Allergies Allergy/AdvReac Type Severity Reaction Status Date / Time Penicillins Allergy Severe Anaphylaxis Verified 08/14/24 11:38 cyclosporine [From Restasis] Allergy Rash/Hives Verified 08/14/24 11:38 TRACE METALS Allergy itching,rachna Uncoded 08/14/24 11:38 h Physical Exam Vitals: Vital Signs Temp Pulse Pulse Pulse Resp BP BP 08/15/24 01:25 98.3 F 75 17 107/62 08/14/24 20:00 98.3 F 79 18 130/69 08/14/24 16:50 98.6 F 72 18 110/51 08/14/24 15:49 76 18 120/78 08/14/24 13:25 76 18 113/62 08/14/24 11:54 73 18 106/54 08/14/24 11:19 69 17 81/63 08/14/24 11:17 18 08/14/24 11:00 72 08/14/24 09:55 97.6 F 141 H 20 95/65 Pulse Ox 08/15/24 01:25 97 08/14/24 20:00 95 08/14/24 16:50 98 08/14/24 15:49 96 08/14/24 13:25 96 08/14/24 11:54 98 08/14/24 11:19 99 08/14/24 11:17 08/14/24 11:00 08/14/24 09:55 97 Intake and Output 08/14/24 08/15/24 08/15/24 22:59 06:59 14:59 Intake Total 118 Balance 118 Intake: Oral 118 Other: Voiding Method Bedside Commode Bedside Commode Diaper Diaper Incontinent Incontinent # Voids 1 Weight 90.718 kg Results 08/14/24 10:44 08/14/24 10:44 Cardiac Enzymes 08/14/24 08/14/24 08/14/24 Range/Units 10:44 10:44 14:14 AST 28 (14-36) U/L Troponin I <0.012 <0.012 (0.000-0.034) ng/mL 08/14/24 Range/Units 18:18 AST (14-36) U/L Troponin I <0.012 (0.000-0.034) ng/mL Coagulation 08/14/24 Range/Units 14:14 PT 11.8 (10.0-12.5) sec APTT 23.1 (22.0-30.0) sec CBC 08/14/24 Range/Units 10:44 WBC 8.77 (4.50-10.00) 10*3/uL RBC 3.59 L (4.10-5.20) 10*6/uL Hgb 11.1 L (12.0-15.0) g/dL Hct 35.5 L (37.2-46.3) % Plt Count 219 (140-440) 10*3/uL Comprehensive Metabolic Panel 08/14/24 Range/Units 10:44 Sodium 141 (137-145) mmol/L Potassium 3.8 (3.5-5.1) mmol/L Chloride 111 H (98-107) mmol/L Carbon Dioxide 23 (22-30) mmol/L BUN 46 H (7-17) mg/dL Creatinine 1.61 H (0.52-1.04) mg/dL Glucose 160 H (74-99) mg/dL Calcium 8.7 (8.4-10.2) mg/dL AST 28 (14-36) U/L ALT 14 (4-34) U/L Alkaline Phosphatase 141 H (38-126) U/L Total Protein 5.8 L (6.3-8.2) g/dL Albumin 2.8 L (3.5-5.0) g/dL Current Medications Generic Name Dose Route Start Last Admin Trade Name Freq PRN Reason Stop Dose Admin Albuterol Sulfate 2.5 mg 08/14/24 13:45 Albuterol Nebulized 2.5 Mg/3 Ml INHALATION RT-QID PRN Shortness Of Breath Aspirin 325 mg 08/15/24 09:00 Aspirin 325 Mg Tab PO DAILY JAQUELINE Atorvastatin Calcium 40 mg 08/14/24 21:00 08/14/24 21:43 Atorvastatin 40 Mg Tab PO 40 mg HS JAQUELINE Administration Budesonide/Formoterol Fumarate 2 puff 08/14/24 20:00 08/15/24 05:38 Symbicort 160-4.5 Mcg Inhaler INHALATION 2 puff RT-BID JAQUELINE Administration Duloxetine HCl 60 mg 08/15/24 09:00 Duloxetine Hcl 30 Mg Capsule.Dr PO DAILY JAQUELINE Furosemide 40 mg 08/14/24 14:00 08/14/24 15:52 Furosemide 10 Mg/Ml 4 Ml Vial IV 40 mg DAILY JAQUELINE Administration Gabapentin 300 mg 08/14/24 16:00 08/14/24 21:43 Gabapentin 300 Mg Cap PO 300 mg TID JAQUELINE Administration Linagliptin 5 mg 08/15/24 09:00 Linagliptin 5 Mg Tablet PO DAILY JAQUELINE Meclizine HCl 25 mg 08/14/24 16:00 08/14/24 21:43 Meclizine 25 Mg Tab PO 25 mg TID JAQUELINE Administration Metoprolol Tartrate 12.5 mg 08/14/24 21:00 08/14/24 21:43 Metoprolol Tartrate 12.5 Mg Tab PO 12.5 mg BID JAQUELINE Administration Nitroglycerin 0.4 mg 08/14/24 12:53 Nitroglycerin Sl Tabs 0.4 Mg Tab SUBLINGUAL Q5M PRN Chest Pain Quetiapine Fumarate 25 mg 08/14/24 21:00 08/14/24 21:43 Quetiapine 25 Mg Tab PO 25 mg HS JAQUELINE Administration Tiotropium [place] 2 puff 08/15/24 08:00 08/15/24 05:38 Tiotropium 2.5 Mcg Inhaler INHALATION 2 puff RT-DAILY JAQUELINE Administration Intake and Output 08/14/24 08/15/24 08/15/24 22:59 06:59 14:59 Intake Total 118 Balance 118 Intake: Oral 118 Other: Voiding Method Bedside Commode Bedside Commode Diaper Diaper Incontinent Incontinent # Voids 1 Weight 90.718 kg 08/14/24 10:44 08/14/24 10:44
[2024-08-15] MEDS: APIXABAN 5 MG TAB PO SCH (08:59)
[2024-08-15] MEDS: DAPAGLIFLOZIN PROPANEDIOL 10 MG TABLET PO SCH (08:59)
[2024-08-15] MEDS: FUROSEMIDE 10 MG/ML 4 ML VIAL IV SCH (09:00)
[2024-08-15] MEDS ORDERED: ASPIRIN 325 MG TAB PO SCH (09:00)
[2024-08-15] MEDS: METOPROLOL TARTRATE 12.5 MG TAB PO SCH (09:01)
[2024-08-15 10:27] LABS: Basophils # (A) 0.04 X 10*3/uL (0.00-0.10); Basophils % (A) 0.6 %; Eosinophils # (A) 0.26 X 10*3/uL (0.04-0.35); HCT 30.3 % (37.2-46.3); HGB 9.4 g/dL (12.0-15.0); Lymphocytes # (A) 1.54 X 10*3/uL (0.90-5.00); Lymphocytes % (A) 23.6 %; MCH 30.5 pg (27.0-32.0); MCV 98.4 FL (80.0-97.0); Mean Platelet Volume 10.6 FL (9.5-12.2); Monocytes # (A) 0.51 X 10*3/uL (0.20-1.00); Monocytes % (A) 7.8 %; NRBC Per 100 WBC 0 X 10*3/uL (0.00-0.01); Neutrophils # (A) 4.16 X 10*3/uL (1.80-7.70); Neutrophils % (A) 63.7 %; Platelet Count 188 X 10*3/uL (140-440); RBC 3.08 X 10*6/uL (4.10-5.20); WBC 6.53 X 10*3/uL (4.50-10.00)
[2024-08-15 10:49] LABS: Chol/HDL Ratio 1.66 Ratio; VLDL Calculation 14.16 mg/dL (5.00-40.00)
[2024-08-15 10:50] LABS: ALT 13 U/L (8-44); AST 22 U/L (13-35); Albumin 2.6 g/dL (3.8-4.9); Albumin/Globulin Ratio 1.08 Ratio (1.60-3.17); Alkaline Phosphatase 125 U/L (41-126); Blood Urea Nitrogen 37.1 mg/dL (9.0-27.0); Calcium 8.2 mg/dL (8.7-10.3); Carbon Dioxide 23.8 mmol/L (21.6-31.8); Chloride 110 mmol/L (96-109); Globulin 2.4 g/dL (1.6-3.3); Glucose 118 mg/dL (70-110); LDL Cholesterol,Calculated 28.7 mg/dL (0.0-131.0); Sodium 144 mmol/L (135-145); Total Bilirubin 0.3 mg/dL (0.3-1.2)
[2024-08-15] MEDS: DULoxetine HCL 30 MG CAPSULE.DR PO SCH (11:59)
[2024-08-15] MEDS: LINAGLIPTIN 5 MG TABLET PO SCH (11:59)
--- NOTE | 2024-08-15 13:45 | PN ---
PROGRESS NOTE DATE OF SERVICE: 08/15/2024 SUBJECTIVE: This 68-year-old woman, who was admitted with shortness of breath as well as possible atrial flutter with 2:1 AV block. She is being closely monitored. No chest pain. No palpitation. A 2D echo showed technically difficult study and normal LV systolic function. No fever. No cough. PHYSICAL EXAMINATION: VITAL SIGNS: Pulse is 75, blood pressure 120/67, and respirations 18. CHEST: Clear to auscultation. CARDIOVASCULAR: S1, S2. ABDOMEN: Soft. NERVOUS SYSTEM: Nonfocal. LABORATORY DATA: Hemoglobin 9.4. ASSESSMENT: 1. Shortness of breath, possible congestive heart failure acute exacerbation with [id number] diastolic dysfunction. 2. Atrial flutter with 2:1 AV block converted to spontaneous with normal sinus rhythm. 3. Chronic kidney disease, stage III. 4. Hypoalbuminemia. 5. History of chronic obstructive pulmonary disease. 6. Diabetes mellitus, type 2. 7. Hypertension. 8. Hyperlipidemia. 9. History of mild pancreatitis. 10.History of gastric bypass. RECOMMENDATIONS AND DISCUSSION: I recommend to continue current management and continue symptomatic treatment. Otherwise increase ambulation. Closely follow with Cardiology. Prognosis guarded. Possible discharge in the next 24 hours. Further recommendations to follow. MMODL / IJN: [id number] /
[2024-08-15] MEDS: ONDANSETRON 4 MG/2 ML VIAL IVP PRN (14:38)
[2024-08-15 19:55] VITALS: RESP 16
[2024-08-15] MEDS: metFORMIN 500 MG TAB PO SCH (21:05)
[2024-08-16] MEDS: ALBUTEROL NEBULIZED 2.5 MG/3 ML INHALATION PRN (06:17)
[2024-08-16 06:35] LABS: African American GFR (CKD) 44 (>60 ml/min/1.73 sqM); Anion Gap 7 mmol/L; Blood Urea Nitrogen 38 mg/dL (7-17); Calcium 8.8 mg/dL (8.4-10.2); Carbon Dioxide 28 mmol/L (22-30); Chloride 100 mmol/L (98-107); Glucose 135 mg/dL (74-99); Non-African American GFR(CKD) 38 (>60 ml/min/1.73 sqM); Potassium 3.7 mmol/L (3.5-5.1); Sodium 135 mmol/L (137-145)
[2024-08-16 07:47] VITALS: BP 115/75; PULSE 85; TEMP 98.2
[2024-08-16 08:27] LABS: Basophils # (A) 0.05 X 10*3/uL (0.00-0.10); Basophils % (A) 0.6 %; Eosinophils # (A) 0.25 X 10*3/uL (0.04-0.35); HCT 31.8 % (37.2-46.3); HGB 9.8 g/dL (12.0-15.0); Lymphocytes # (A) 1.56 X 10*3/uL (0.90-5.00); MCH 30.3 pg (27.0-32.0); MCHC 30.8 g/dL (32.0-37.0); MCV 98.5 FL (80.0-97.0); Mean Platelet Volume 10.5 FL (9.5-12.2); Monocytes % (A) 8.5 %; NRBC Per 100 WBC 0 X 10*3/uL (0.00-0.01); Neutrophils # (A) 5.63 X 10*3/uL (1.80-7.70); Neutrophils % (A) 68.4 %; Platelet Count 210 X 10*3/uL (140-440); RBC 3.23 X 10*6/uL (4.10-5.20); RDW 12.9 % (11.5-14.5); WBC 8.23 X 10*3/uL (4.50-10.00)
[2024-08-16] MEDS: FUROSEMIDE 40 MG TAB PO SCH (09:07)
--- NOTE | 2024-08-16 14:03 | P.PN ---
Subjective Progress Note Date: 08/16/24 History of Present Illness: The patient is a 68-year-old female, followed by Dr. Aguilar with a history of hy perlipidemia, diabetes, hypertension who presents with symptoms of progressive dyspnea and worsening peripheral edema that has been going on for a while but worse recently. The patient is very limited in her physical activity. According to the notes on presentation she was noted to be in atrial flutter and subsequently converted to sinus mechanism although because of computer issue I cannot review the EKG and atrial flutter. The only EKG available to me she is in sinus mechanism. Patient did not feel any palpitations had no chest discomfort but feels dizzy and that has been chronic. She has prior history of paroxysmal atrial flutter has been anticoagulated in the past but according to h er it was stopped. She has a prior history of chronic kidney disease as well has thrombocytopenia that apparently improved. She has been followed by hematology. She underwent coronary angiography in 2019 and had no evidence of significant obstructive disease. The patient denies any PND, orthopnea or syncope. On presentation her troponin. Her NT proBNP is 2940 and she has evidence of acute kidney injury, it was normal on 05 August. Her platelets count is 219. She had an echocardiogram that was technically difficult but showed a preserved left ventricular systolic function. Medications: Seroquel, atorvastatin 40 mg daily, Januvia, metformin 1 g twice a day, metoprolol 12.5 mg twice a day, Lasix 40 mg daily, Cymbalta, Symbicort Labs: Hemoglobin 11.1, platelets count 219. BUN 46, creatinine 1.61. NT proBNP 2940. Chest x-ray with no acute changes EKG: Sinus mechanism with no acute ST segment changes Addendum completed on 08/15/2024: After being able to review the EKG the patient has no evidence of atrial flutter, she is in sinus mechanism. In view of that and the prior history of thrombocytopenia I will stop anticoagulation at this time and continue monitoring and depending on her progress further recommendations will be made. 08/16/2024 Patient seen and examined. Patient states that her breathing is better. She still has a little soreness on the left side of her chest. She has been on IV Lasix which will be transition to oral today. Blood pressure 115/75, heart rate 80, pulse ox 91 to 94% on room air. Repeat blood work reveals hemoglobin 9.8. BUN 38 creatinine 1.4. Potassium 3.7. Echocardiogram reveals EF of 55 to 60%. Mild aortic regurgitation. Trace to m ild mitral and tricuspid regurgitation. Physical Examination: 68-year-old female, alert oriented no apparent distress, obese,Blood pressure 130/69, Heart rate heart rate 70 Head: Normocephalic. Eyes: Sclerae nonicteric. Neck: Good carotid upstroke, no bruit, no jugular venous distention. Lungs: Clear to auscultation. Heart: Regular rate and rhythm, S1-S2, no S3, no rub. Systolic ejection murmur. Abdomen: Soft nontender, positive bowel sounds no organomegaly. Extremities: +1 is edema,, mild redness, intact distal pulses. Impression: 1. Symptoms of progressive dyspnea and worsening peripheral edema, secondary to acute on chronic CHF with preserved systolic function 2. Acute renal injury 3. Prior history of paroxysmal flutter, was anticoagulated in the past. 4. Prior history of thrombocytopenia, resolved 5. Obesity 6. Hyperlipidemia 7. Diabetes Plan: 1. IV diuretics transition to oral Lasix 40 mg daily 2. No need for anticoagulation 3. Follow renal functions 4. Continue the addition of Jardiance 5. Patient is cleared for discharge from cardiology perspective. She may follow-up with Dr. Aguilar in 1 to 2 weeks. Nurse practitioner note has been reviewed, I agree with documented findings and plan of care. Patient was seen and examined. Objective - Vital Signs Vital signs: Vital Signs Temp 98.6 F 08/16/24 02:00 Pulse 76 08/16/24 06:30 Resp 16 08/16/24 02:00 BP 112/74 08/16/24 02:00 Pulse Ox 95 08/16/24 02:00 FiO2 Intake & Output 08/15/24 08/16/24 08/16/24 18:59 06:59 18:59 Intake Total 457 Output Total 1350 950 Balance -893 -950 Intake: Oral 457 Output: Urine 1350 950 Other: Voiding Method Bedside Commode Bedside Commode Diaper Diaper Incontinent Incontinent External Catheter External Catheter # Voids 2 2 # Bowel Movements 0 - Labs CBC & Chem 7: 08/16/24 05:20 08/16/24 05:20 Labs: Abnormal Lab Results - Last 24 Hours (Table) 08/15/24 08/15/24 08/16/24 Range/Units 06:04 06:04 05:20 RBC 3.08 L (4.10-5.20) X 10*6/uL Hgb 9.4 L (12.0-15.0) g/dL Hct 30.3 L (37.2-46.3) % MCV 98.4 H (80.0-97.0) FL MCHC 31.0 L (32.0-37.0) g/dL Sodium 135 L (137-145) mmol/L Chloride 110 H (96-109) mmol/L BUN 37.1 H 38 H (9.0-27.0) mg/dL Creatinine 1.40 H (0.52-1.04) mg/dL Est GFR (CKD-EPI) 41 L (>=60) BUN/Creatinine Ratio 26.50 H (12.00-20.00) Ratio Glucose 118 H 135 H (70-110) mg/dL Calcium 8.2 L (8.7-10.3) mg/dL Total Protein 5.0 L (6.2-8.2) g/dL Albumin 2.6 L (3.8-4.9) g/dL Albumin/Globulin Ratio 1.08 L (1.60-3.17) Ratio HDL Cholesterol 65.10 H (40.00-60.00) mg/dL
[2024-08-16 15:27] LABS: HCT 30.8 % (37.2-46.3); HGB 9.6 g/dL (12.0-15.0); MCH 30.7 pg (27.0-32.0); MCHC 31.2 g/dL (32.0-37.0); MCV 98.4 FL (80.0-97.0); Mean Platelet Volume 10.4 FL (9.5-12.2); NRBC Per 100 WBC 0 X 10*3/uL (0.00-0.01); Platelet Count 208 X 10*3/uL (140-440); RBC 3.13 X 10*6/uL (4.10-5.20); WBC 7.89 X 10*3/uL (4.50-10.00)
--- NOTE | 2024-08-18 17:06 | P.DS ---
Providers Date of admission: 08/14/24 12:56 Expected date of discharge: 08/16/24 Attending physician: Shelby Linares Consults: 08/14/24 12:55 Consult Physician Urgent Consulting Provider: [facility] Consult Reason/Comments: Tachycardia Do you want consulting provider notified?: Yes Primary care physician: Mamadou Gerard [facility] Course: Final diagnosis Shortness of breath, secondary to congestive heart failure, acute exacerbation with acute on chronic diastolic dysfunction A flutter with 2-1 AV block converted to spontaneous normal sinus Chronic kidney disease, stage III Hypoalbuminemia History of COPD, not in exacerbation Diabetes mellitus, type II Hypertension Hyperlipidemia History of mild pancreatitis History of previous gastric bypass obesity with a BMI of 32.3 GI prophylaxis DVT prophylaxis Full code Discharge disposition Patient is being discharged in a stable condition with guarded prognosis to home. Patient will follow-up with Dr. Gerard in the outpatient setting upon discharge. Patient is to continue with current medications and outpatient follow-up with cardiology as scheduled. Total time taken is greater than 35 minutes. Hospital course This is a 68-year-old female who was recently admitted with increased shortness of breath with a flutter with 2-1 AV block being closely monitored with cardiology following. Patient also with lower extremity edema maintained on diuresis showing some improvement and recommend Jus wraps and/or compression stockings to lower extremities and elevating while at rest. Patient has had frequent ER visits and hospitalizations regarding generalized weakness with gait dysfunction although patient is adamant she is returning home on discharge. Patient has been evaluated by cardiology making adjustments to medications and cleared the patient for discharge recommending outpatient follow-up. Patient will follow-up with her primary plaster form maker Dr. Martinez in the outpatient setting. Please refer to consultation notes for further HPI. Currently no reports of chest pain, shortness of breath, or palpitations. Patient is afebrile. No reports of nausea or vomiting and patient is tolerating diet. Patient will be discharged home today. Guarded prognosis and high risk for readmissions Physical exam: Gen: This is a 68-year-old female who is awake, alert and oriented x 3, well-developed, elderly appearing, obese HEENT: Head is atraumatic, normocephalic. Pupils equal, round. Sclerae is anicteric. NECK: Supple. No JVD. No lymphadenopathy. No thyromegaly. LUNGS: Diminished breath sounds bilaterally otherwise clear to auscultation. No wheezes or rhonchi. No intercostal retractions. HEART: S1, S2 are muffled ABDOMEN: Soft. Obese bowel sounds are present. No masses. No tenderness. EXTREMITIES: 1-2+ pitting pedal edema. No calf tenderness. Bilateral lower extremity swelling and pedal edema NEUROLOGICAL: Patient is awake, alert and oriented x3. Cranial nerves 2 through 12 are grossly intact. Diffusely weak Please refer to medication reconciliation sheet for a list of medications. The impression and plan of care has been dictated by Taina Yuen, Nurse Pr actitioner as directed. Dr. Vijay MD I have performed a history and examination and MDM of this patient, discussed the same with the dictator, and agree with the dictator's assessment and plan as written ,documented as a scribe. Based on total visit time, I have performed more than 50% of the visit. Patient Condition at Discharge: Fair Plan - Discharge Summary New Discharge Prescriptions: New Dapagliflozin Propanediol [Farxiga] 10 mg PO DAILY #30 tab Continue Tiotropium 2.5 Mcg/Puff [Spiriva Respimat 2.5 Mcg] 2 puff INHALATION RT-DAILY Albuterol Sulfate [Albuterol Sulfate Hfa] 2 puff INHALATION RT-QID PRN PRN Reason: Shortness Of Breath metFORMIN HCL 1,000 mg PO BID Atorvastatin Calcium [Lipitor] 40 mg PO HS Budesonide/Formoterol Fumarate [Symbicort 160-4.5 Mcg Inhaler] 2 puff INHALATION RT-BID Furosemide [Lasix] 40 mg PO DAILY sitaGLIPtin [Januvia] 100 mg PO DAILY Metoprolol Tartrate [Lopressor] 12.5 mg PO BID Gabapentin 300 mg PO TID DULoxetine HCL [Cymbalta] 60 mg PO DAILY QUEtiapine FUMARATE [SEROquel] 25 mg PO HS Ibuprofen [Motrin] 800 mg PO Q8HR PRN #30 tab PRN Reason: Pain Nitroglycerin Sl Tabs [Nitrostat] 0.4 mg SL Q5M PRN PRN Reason: Chest Pain Meclizine [Antivert] 25 mg PO TID #20 tab Discharge Medication List Tiotropium 2.5 Mcg/Puff [Spiriva Respimat 2.5 Mcg] 2 puff INHALATION RT-DAILY 08/25/21 [History] Albuterol Sulfate [Albuterol Sulfate Hfa] 2 puff INHALATION RT-QID PRN 09/19/21 [History] Atorvastatin Calcium [Lipitor] 40 mg PO HS 12/07/21 [History] QUEtiapine FUMARATE [SEROquel] 25 mg PO HS 12/07/21 [History] metFORMIN HCL 1,000 mg PO BID 12/07/21 [History] Budesonide/Formoterol Fumarate [Symbicort 160-4.5 Mcg Inhaler] 2 puff INHALATION RT-BID 02/17/22 [History] Furosemide [Lasix] 40 mg PO DAILY 08/01/22 [History] sitaGLIPtin [Januvia] 100 mg PO DAILY 08/01/22 [History] Ibuprofen [Motrin] 800 mg PO Q8HR PRN #30 tab 07/31/24 [Rx] DULoxetine HCL [Cymbalta] 60 mg PO DAILY 08/05/24 [History] Gabapentin 300 mg PO TID 08/05/24 [History] Meclizine [Antivert] 25 mg PO TID #20 tab 08/05/24 [Rx] Metoprolol Tartrate [Lopressor] 12.5 mg PO BID 08/05/24 [History] Nitroglycerin Sl Tabs [Nitrostat] 0.4 mg SL Q5M PRN 08/05/24 [History] Dapagliflozin Propanediol [Farxiga] 10 mg PO DAILY #30 tab 08/16/24 [Rx] Follow up Appointment(s)/Referral(s): Irlanda Martinez MD [STAFF PHYSICIAN] - 1 Week (Office to call with appointment. ) Mamadou Gerard DO [Primary Care Provider] - 1-2 days [facility]idential Home[facility] [NON-STAFF] - As Needed Patient Instructions/Handouts: Heart Failure (DC), Acute Kidney Injury (DC), Edema (DC) Activity/Diet/Wound Care/Special Instructions: Activity limited until follow-up Follow-up with primary care provider on discharge Follow-up with cardiology outpatient Continue taking medications as prescribed Discharge Disposition: HOME SELF-CARE
== END 2024-08-16 15:36 | disposition home or self-care (01) | DRG 682 ==
LOC: EC 09:54 → OBSVTOIN 12:56 → 6NMEDSUR 12:56
PROVIDERS: ADMIT Hospitalist; ATTEND Hospitalist
DX: N17.9 Acute kidney failure, unspecified (principal); I50.33 Acute on chronic diastolic (congestive) heart failure; I13.0 Hypertensive heart and chronic kidney disease with heart failure and stage 1 through stage 4 chronic kidney disease, or unspecified chronic kidney disease; E88.09 Other disorders of plasma-protein metabolism, not elsewhere classified; I44.1 Atrioventricular block, second degree; J44.9 Chronic obstructive pulmonary disease, unspecified; N18.30 Chronic kidney disease, stage 3 unspecified; E11.22 Type 2 diabetes mellitus with diabetic chronic kidney disease; E66.9 Obesity, unspecified; I48.92 Unspecified atrial flutter; E78.5 Hyperlipidemia, unspecified; R00.0 Tachycardia, unspecified; R26.9 Unspecified abnormalities of gait and mobility; Z68.32 Body mass index [BMI] 32.0-32.9, adult; Z79.51 Long term (current) use of inhaled steroids; Z79.84 Long term (current) use of oral hypoglycemic drugs; Z87.891 Personal history of nicotine dependence; Z98.84 Bariatric surgery status; Z79.899 Other long term (current) drug therapy; Z87.19 Personal history of other diseases of the digestive system; Z82.49 Family history of ischemic heart disease and other diseases of the circulatory system; Z96.653 Presence of artificial knee joint, bilateral
CPT/HCPCS: 36415; 71046; 80048; 80053; 80061; 83605; 83735; 83880; 84443; 84484; 85025; 85027; 85610; 85730; 93005; 93306; 94640; 94760; 99285

== ENCOUNTER 2024-09-01 10:31 | Emergency (ER) | payer MEDICARE ==
[2024-09-01 10:38] VITALS: TEMP 98.7
--- NOTE | 2024-09-01 10:52 | ED ---
SOB HPI - General Chief Complaint: Shortness of Breath Stated Complaint: Coughing/Swollen Feet Time Seen by Provider: 09/01/24 10:52 Source: patient, RN notes reviewed Mode of arrival: ambulatory Limitations: no limitations - History of Present Illness Initial Comments: 68-year-old female presented to ER for evaluation of bilateral lower extremity edema. Patient reports a history of heart failure and states she was recently discharged from this facility for heart failure exacerbation. Patient did have increase in Lasix dose upon discharge. She states since then she has been having continued bilateral lower extremity and foot edema. Patient also reports shortness of breath but states this is chronic. Patient admits to orthopnea and exertional dyspnea. Patient denies any chest pain, fevers, chills, headache, nausea, vomiting or other complaints. Patient states since discharge she has no worsening of symptoms and symptoms are the same as the days she was discharged. - Related Data Home Medications Medication Instructions Recorded Confirmed Tiotropium 2.5 Mcg/Puff [Spiriva 2 puff INHALATION RT-DAILY 08/25/21 08/14/24 Respimat 2.5 Mcg] Albuterol Sulfate [Albuterol 2 puff INHALATION RT-QID PRN 09/19/21 08/14/24 Sulfate Hfa] Atorvastatin Calcium [Lipitor] 40 mg PO HS 12/07/21 08/14/24 QUEtiapine FUMARATE [SEROquel] 25 mg PO HS 12/07/21 08/14/24 metFORMIN HCL 1,000 mg PO BID 12/07/21 08/14/24 Budesonide/Formoterol Fumarate 2 puff INHALATION RT-BID 02/17/22 08/14/24 [Symbicort 160-4.5 Mcg Inhaler] Furosemide [Lasix] 40 mg PO DAILY 08/01/22 08/14/24 sitaGLIPtin [Januvia] 100 mg PO DAILY 08/01/22 08/14/24 DULoxetine HCL [Cymbalta] 60 mg PO DAILY 08/05/24 08/14/24 Gabapentin 300 mg PO TID 08/05/24 08/14/24 Metoprolol Tartrate [Lopressor] 12.5 mg PO BID 08/05/24 08/14/24 Nitroglycerin Sl Tabs [Nitrostat] 0.4 mg SL Q5M PRN 08/05/24 08/14/24 Previous Rx's Medication Instructions Recorded Ibuprofen [Motrin] 800 mg PO Q8HR PRN #30 tab 07/31/24 Meclizine [Antivert] 25 mg PO TID #20 tab 08/05/24 Dapagliflozin Propanediol [Farxiga] 10 mg PO DAILY #30 tab 08/16/24 Allergies Allergy/AdvReac Type Severity Reaction Status Date / Time Penicillins Allergy Severe Anaphylaxis Verified 09/01/24 10:38 cyclosporine [From Restasis] Allergy Rash/Hives Verified 09/01/24 10:38 TRACE METALS Allergy itching,rachna Uncoded 09/01/24 10:38 h Review of Systems ROS Statement: Those systems with pertinent positive or pertinent negative responses have been documented in the HPI. ROS Other: All systems not noted in ROS Statement are negative. Past Medical History Past Medical History: Chest Pain / Angina, COPD, Diabetes Mellitus, GERD/Reflux, Hyperlipidemia, Hypertension, Osteoarthritis (OA), Skin Disorder, Sleep Apnea/CPAP/BIPAP Additional Past Medical History / Comment(s): Diagnosed with mild pancreatitis on 01/22/19, NIDDM type II, neuropathy bilateral hands/legs/feet, arthritis in multiple joints, bilateral carpal tunnel syndrome, gastric ulcer, ADRIANA-no longer uses device since wt loss, varicose veins, venous dermatitis. History of Any Multi-Drug Resistant Organisms: None Reported Past Surgical History: Adenoidectomy, Appendectomy, Bariatric Surgery, Cholecystectomy, Orthopedic Surgery, Tonsillectomy Additional Past Surgical History / Comment(s): 01/13/15 Lap laila en Y gastric bypass with lysis of adhesions, EGDs, colonoscopies, bilateral knee arthroscopy, bilateral knee replacements, D&C, EGD Past Anesthesia/Blood Transfusion Reactions: No Reported Reaction Additional Past Anesthesia/Blood Transfusion Reaction / Comment(s): Pt is slow to wake from anesthesia. She has received blood in past without reaction. Past Psychological History: Anxiety, Depression Smoking Status: Former smoker Past Alcohol Use History: None Reported Past Drug Use History: None Reported - Past Family History Mother Family Medical History: Cancer, Deep Vein Thrombosis (DVT) Additional Family Medical History / Comment(s): Mother had uterine cancer. Father Family Medical History: Congestive Heart Failure (CHF), Sleep Apnea/CPAP/BIPAP Additional Family Medical History / Comment(s): Father was an alcoholic. He of CHF at the age of 48yrs. Brother(s) Family Medical History: Coronary Artery Disease (CAD) General Exam Limitations: no limitations General appearance: alert, in no apparent distress Respiratory exam: Present: normal lung sounds bilaterally. Absent: respiratory distress, wheezes, rales, rhonchi, stridor Cardiovascular Exam: Present: regular rate, normal rhythm, normal heart sounds. Absent: systolic murmur, diastolic murmur, rubs, gallop, clicks Extremities exam: Present: normal inspection, normal capillary refill, pedal edema (Nonpitting bilaterally) Neurological exam: Present: alert, oriented X3, CN II-XII intact Skin exam: Present: warm, dry, intact, normal color. Absent: rash Course Vital Signs 09/01/24 09/01/24 09/01/24 10:34 10:47 10:50 Temperature 98.7 F Pulse Rate 82 Respiratory 18 20 Rate Blood Pressure 127/75 O2 Sat by Pulse 94 L 96 Oximetry 09/01/24 09/01/24 11:00 12:53 Temperature Pulse Rate 80 78 Respiratory 19 18 Rate Blood Pressure 134/94 118/55 O2 Sat by Pulse 97 Oximetry Medical Decision Making - Medical Decision Making Was pt. sent in by a medical professional or institution (, PA, TANNERY WORKER, urgent care, hospital, or correction...) When possible be specific @ -No Did you speak to anyone other than the patient for history (EMS, parent, family, police, friend...)? What history was obtained from this source @ -No Did you review nursing and triage notes (agree or disagree)? Why? @ -I reviewed and agree with nursing and triage notes Were old charts reviewed (outside hosp., previous admission, EMS record, old EKG, old radiological studies, urgent care reports/EKG's, correction records)? Report findings @ -Admission from 08 14 24. Differential Diagnosis (chest pain, altered mental status, abdominal pain women, abdominal pain men, vaginal bleeding, weakness, fever, dyspnea, syncope, headache, dizziness, GI bleed, back pain, seizure, CVA, palpatations, mental health, musculoskeletal)? @ -Differential Dyspnea:Coronary syndrome, arrhythmia, tamponade, asthma, COPD, pulmonary embolism, pneumonia, pneumothorax, pulmonary effusion, anaphylaxis, diabetic ketoacidosis, flailed chest, pulmonary contusion, diaphragmatic rupture, anemia, neuromuscular, this is not meant to be an all-inclusive list. EKG interpreted by me (3pts min.). @ -As above X-rays interpreted by me (1pt min.). @ -CXR interpreted and negative for focal consolidations or pneumothorax. COPD changes. CT interpreted by me (1pt min.). @ -None done U/S interpreted by me (1pt. min.). @ -None done What testing was considered but not performed or refused? (CT, X-rays, U/S, labs)? Why? @ -None What meds were considered but not given or refused? Why? @ -None Did you discuss the management of the patient with other professionals (professionals i.e. , PA, TANNERY WORKER, lab, RT, psych nurse, social worker delinquency prevention, hand roller engraver, teacher, ground nuclear weapons assembly officer, case operator)? Give summary @ -No Was smoking cessation discussed for >3mins.? @ -No Was critical care preformed (if so, how long)? @ -No Were there social determinants of health that impacted care today? How? (Homelessness, low income, unemployed, alcoholism, drug addiction, transportation, low edu. Level, literacy, decrease access to med. care, senior care, rehab)? @ -No Was there de-escalation of care discussed even if they declined (Discuss DNR or withdrawal of care, Hospice)? DNR status @ -No What co-morbidities impacted this encounter? (DM, HTN, Smoking, COPD, CAD, Cancer, CVA, ARF, Chemo, Hep., AIDS, mental health diagnosis, sleep apnea, morbid obesity)? @ -Obese, COPD, CHF, Diabetes mellitus, hyperlipidemia, hypertension Was patient admitted / discharged? Hospital course, mention meds given and route, prescriptions, significant lab abnormalities, going to OR and other pertinent info. @ -Discharge. 68-year-old female presented to ER for evaluation of shortness of breath. Vital signs stable. Patient no signs of acute distress nontoxic- appearing. Laboratory study remarkable for hemoglobin of 10.6 this is improved from baseline. Troponin undetectable. BNP 1250 stable from prior. Chest x-ray showing no acute findings. As patient had recent admission with extensive cardiac workup with no increase or new symptoms since day of discharge along with remaining stable throughout ER stay provided 1 dose IV Lasix and discharged home. Instructed to continue diuretic at home and follow-up closely with PCP and cardiology. Strict return parameters discussed. Patient discharged in stable condition. Patient verbally expressed understanding agreement care plan. Case discussed with ED attending, Dr. Menchaca. Undiagnosed new problem with uncertain prognosis? @ -No Drug Therapy requiring intensive monitoring for toxicity (Heparin, Nitro, Insulin, Cardizem)? @ -No Were any procedures done? @ -No Diagnosis/symptom? @ -Shortness of breath/history of CHF Acute, or Chronic, or Acute on Chronic? @ -Acute Uncomplicated (without systemic symptoms) or Complicated (systemic symptoms)? @ -Complicated Side effects of treatment? @ -No Exacerbation, Progression, or Severe Exacerbation? @ -No Poses a threat to life or bodily function? How? (Chest pain, USA, NV, pneumonia, PE, COPD, DKA, ARF, appy, cholecystitis, CVA, Diverticulitis, Homicidal, Suicidal, threat to staff... and all critical care pts) @ -Low at this time - Lab Data Result diagrams: 09/01/24 11:35 09/01/24 11:35 Lab Results 09/01/24 09/01/24 09/01/24 Range/Units 11:35 11:35 11:35 WBC 5.61 (4.50-10.00) 10*3/uL RBC 3.44 L (4.10-5.20) 10*6/uL Hgb 10.6 L (12.0-15.0) g/dL Hct 33.5 L (37.2-46.3) % MCV 97.4 H (80.0-97.0) fL MCH 30.8 (27.0-32.0) pg MCHC 31.6 L (32.0-37.0) g/dL Plt Count 183 (140-440) 10*3/uL MPV 10.1 (9.5-12.2) fL Immature Gran % (Auto) 0.4 % Neutrophils % 72.1 % Lymphocytes % 16.0 % Monocytes % 8.7 % Eosinophils % 2.1 % Basophils % 0.7 % Immature Gran # 0.02 (0.00-0.04) 10*3/uL Neutrophils # 4.04 (1.80-7.70) 10*3/uL Lymphocytes # 0.90 (0.90-5.00) 10*3/uL Monocytes # 0.49 (0.20-1.00) 10*3/uL Eosinophils # 0.12 (0.04-0.35) 10*3/uL Basophils # 0.04 (0.00-0.10) 10*3/uL PT 11.6 (10.0-12.5) sec INR 1.1 (<1.2) APTT 23.5 (22.0-30.0) sec Sodium 139 (137-145) mmol/L Potassium 4.0 (3.5-5.1) mmol/L Chloride 103 (98-107) mmol/L Carbon Dioxide 30 (22-30) mmol/L Anion Gap 6 mmol/L BUN 20 H (7-17) mg/dL Creatinine 0.83 (0.52-1.04) mg/dL Est GFR (CKD-EPI)AfAm 84 (>60 ml/min/1.73 sqM) Est GFR (CKD-EPI)NonAf 73 (>60 ml/min/1.73 sqM) Glucose 137 H (74-99) mg/dL Plasma Lactic Acid Bradly (0.7-2.0) mmol/L Calcium 9.1 (8.4-10.2) mg/dL Total Bilirubin 0.6 (0.2-1.3) mg/dL AST 22 (14-36) U/L ALT 10 (4-34) U/L Alkaline Phosphatase 138 H (38-126) U/L Troponin I (0.000-0.034) ng/mL NT-Pro-B Natriuret Pep 1250 pg/mL Total Protein 6.0 L (6.3-8.2) g/dL Albumin 3.0 L (3.5-5.0) g/dL 09/01/24 09/01/24 Range/Units 11:35 11:35 WBC (4.50-10.00) 10*3/uL RBC (4.10-5.20) 10*6/uL Hgb (12.0-15.0) g/dL Hct (37.2-46.3) % MCV (80.0-97.0) fL MCH (27.0-32.0) pg MCHC (32.0-37.0) g/dL Plt Count (140-440) 10*3/uL MPV (9.5-12.2) fL Immature Gran % (Auto) % Neutrophils % % Lymphocytes % % Monocytes % % Eosinophils % % Basophils % % Immature Gran # (0.00-0.04) 10*3/uL Neutrophils # (1.80-7.70) 10*3/uL Lymphocytes # (0.90-5.00) 10*3/uL Monocytes # (0.20-1.00) 10*3/uL Eosinophils # (0.04-0.35) 10*3/uL Basophils # (0.00-0.10) 10*3/uL PT (10.0-12.5) sec INR (<1.2) APTT (22.0-30.0) sec Sodium (137-145) mmol/L Potassium (3.5-5.1) mmol/L Chloride (98-107) mmol/L Carbon Dioxide (22-30) mmol/L Anion Gap mmol/L BUN (7-17) mg/dL Creatinine (0.52-1.04) mg/dL Est GFR (CKD-EPI)AfAm (>60 ml/min/1.73 sqM) Est GFR (CKD-EPI)NonAf (>60 ml/min/1.73 sqM) Glucose (74-99) mg/dL Plasma Lactic Acid Bradly 1.4 (0.7-2.0) mmol/L Calcium (8.4-10.2) mg/dL Total Bilirubin (0.2-1.3) mg/dL AST (14-36) U/L ALT (4-34) U/L Alkaline Phosphatase (38-126) U/L Troponin I <0.012 (0.000-0.034) ng/mL NT-Pro-B Natriuret Pep pg/mL Total Protein (6.3-8.2) g/dL Albumin (3.5-5.0) g/dL - EKG Data -: EKG Interpreted by Me EKG Comments: EKG taken at 11: 15 showing a sinus rhythm with first-degree AV block. Ventricular rate 73, [place] interval 224, QRS duration 78, QT/QTc 376/402 - Radiology Data Radiology results: report reviewed, image reviewed Disposition Clinical Impression: Lower extremity edema Disposition: HOME SELF-CARE Condition: Stable Instructions (If sedation given, give patient instructions): Leg Edema (ED) Additional Instructions: Continue taking Lasix as prescribed. I recommend you follow-up with cardiology and PCP next week. Keep legs elevated. I also recommend compression stockings. Return to the ER for any new or worsening concerns. Is patient prescribed a controlled substance at d/c from ED?: No Referrals: Mamadou Gerard DO [Primary Care Provider] - 1-2 days Axel Aguilar MD [STAFF PHYSICIAN] - 1-2 days Time of Disposition: 12:45
[2024-09-01 11:42] LABS: Basophils # (A) 0.04 10*3/uL (0.00-0.10); Basophils % (A) 0.7 %; Eosinophils # (A) 0.12 10*3/uL (0.04-0.35); Eosinophils % (A) 2.1 %; HCT 33.5 % (37.2-46.3); HGB 10.6 g/dL (12.0-15.0); MCH 30.8 pg (27.0-32.0); MCHC 31.6 g/dL (32.0-37.0); MCV 97.4 fL (80.0-97.0); Mean Platelet Volume 10.1 fL (9.5-12.2); Monocytes # (A) 0.49 10*3/uL (0.20-1.00); Monocytes % (A) 8.7 %; Neutrophils # (A) 4.04 10*3/uL (1.80-7.70); Neutrophils % (A) 72.1 %; Platelet Count 183 10*3/uL (140-440); RBC 3.44 10*6/uL (4.10-5.20); RDW 13.5 % (11.5-14.5); WBC 5.61 10*3/uL (4.50-10.00)
--- NOTE | 2024-09-01 11:51 | XR ---
EXAMINATION TYPE: XR chest 2V DATE OF EXAM: 09/01/2024 11:44 AM COMPARISON: None CLINICAL INDICATION: Female, 68 years old with history of difficulty breathing; MERGED WITH [facility] TECHNIQUE: XR chest 2V Frontal and lateral views of the chest. FINDINGS: Lungs/Pleura: There is flattening of the diaphragm with increased lucency of the lungs. No evidence o f pneumothorax, pleural effusion or focal consolidation. Pulmonary vascularity: Unremarkable. Heart/mediastinum: Cardiomediastinal silhouette is unremarkable. Musculoskeletal: No acute osseous pathology. Other findings: None IMPRESSION: 1. No acute cardiopulmonary disease process. 2. COPD changes. [facility], , 09/01/2024 11:48 AM
[2024-09-01 11:52] LABS: INR 1.1 (<1.2); Partial Thromboplastin Time 23.5 sec (22.0-30.0); Prothrombin Time 11.6 sec (10.0-12.5)
[2024-09-01 11:55] LABS: ALT 10 U/L (4-34); AST 22 U/L (14-36); African American GFR (CKD) 84 (>60 ml/min/1.73 sqM); Alkaline Phosphatase 138 U/L (38-126); Anion Gap 6 mmol/L; Blood Urea Nitrogen 20 mg/dL (7-17); Calcium 9.1 mg/dL (8.4-10.2); Carbon Dioxide 30 mmol/L (22-30); Chloride 103 mmol/L (98-107); Glucose 137 mg/dL (74-99); Non-African American GFR(CKD) 73 (>60 ml/min/1.73 sqM); Sodium 139 mmol/L (137-145); Total Bilirubin 0.6 mg/dL (0.2-1.3)
[2024-09-01 12:04] LABS: NT-Pro-B-Type Natriuretic Pept 1250 pg/mL
[2024-09-01] MEDS: FUROSEMIDE 10 MG/ML 4 ML VIAL IV STA (12:51)
[2024-09-01 12:55] VITALS: BP 118/55; PULSE 78; RESP 18
== END 2024-09-01 13:13 | disposition home or self-care (01) ==
LOC: EC 10:31
DX: R60.0 Localized edema (principal); I44.0 Atrioventricular block, first degree; Z88.0 Allergy status to penicillin; Z88.8 Allergy status to other drugs, medicaments and biological substances
CPT/HCPCS: 36415; 93005; 83880; 80053; 83605; 84484; 85025; 85610; 85730; 71046; 99285; 96374; J1938

== ENCOUNTER 2024-09-16 13:14 | Inpatient (IN) | payer MEDICARE ==
--- NOTE | 2024-09-16 13:52 | ED ---
General Adult HPI - General Chief complaint: Recheck/Abnormal Lab/Rx Stated complaint: SOB Time Seen by Provider: 09/16/24 13:30 Source: patient, RN notes reviewed Mode of arrival: ambulatory Limitations: no limitations - History of Present Illness Initial comments: Patient is a 68-year-old female present to the emergency department not feeling well. Onset of symptoms was a week or 2 ago. Patient feels weak and fatigued. Patient has mild dysuria. Patient feels short of breath. Patient admits to having palpitations. No chest pain. Patient states she has had palpitations previously however unclear why. No reported history of atrial flutter or atrial fibrillation - Related Data Home Medications Medication Instructions Recorded Confirmed Tiotropium 2.5 Mcg/Puff [Spiriva 2 puff INHALATION RT-DAILY 08/25/21 08/14/24 Respimat 2.5 Mcg] Albuterol Sulfate [Albuterol 2 puff INHALATION RT-QID PRN 09/19/21 08/14/24 Sulfate Hfa] Atorvastatin Calcium [Lipitor] 40 mg PO HS 12/07/21 08/14/24 QUEtiapine FUMARATE [SEROquel] 25 mg PO HS 12/07/21 08/14/24 metFORMIN HCL 1,000 mg PO BID 12/07/21 08/14/24 Budesonide/Formoterol Fumarate 2 puff INHALATION RT-BID 02/17/22 08/14/24 [Symbicort 160-4.5 Mcg Inhaler] Furosemide [Lasix] 40 mg PO DAILY 08/01/22 08/14/24 sitaGLIPtin [Januvia] 100 mg PO DAILY 08/01/22 08/14/24 DULoxetine HCL [Cymbalta] 60 mg PO DAILY 08/05/24 08/14/24 Gabapentin 300 mg PO TID 08/05/24 08/14/24 Metoprolol Tartrate [Lopressor] 12.5 mg PO BID 08/05/24 08/14/24 Nitroglycerin Sl Tabs [Nitrostat] 0.4 mg SL Q5M PRN 08/05/24 08/14/24 Previous Rx's Medication Instructions Recorded Ibuprofen [Motrin] 800 mg PO Q8HR PRN #30 tab 07/31/24 Meclizine [Antivert] 25 mg PO TID #20 tab 08/05/24 Dapagliflozin Propanediol [Farxiga] 10 mg PO DAILY #30 tab 08/16/24 Allergies Allergy/AdvReac Type Severity Reaction Status Date / Time Penicillins Allergy Severe Anaphylaxis Verified 09/16/24 13:26 cyclosporine [From Restasis] Allergy Rash/Hives Verified 09/16/24 13:26 TRACE METALS Allergy itching,rachna Uncoded 09/16/24 13:26 h Review of Systems ROS Statement: Those systems with pertinent positive or pertinent negative responses have been documented in the HPI. ROS Other: All systems not noted in ROS Statement are negative. Constitutional: Denies: fever Eyes: Denies: eye pain ENT: Denies: ear pain Respiratory: Reports: as per HPI, dyspnea Cardiovascular: Reports: as per HPI, palpitations. Denies: chest pain Gastrointestinal: Denies: abdominal pain Genitourinary: Reports: dysuria Neurological: Reports: weakness Past Medical History Past Medical History: Chest Pain / Angina, COPD, Diabetes Mellitus, GERD/Reflux, Hyperlipidemia, Hypertension, Osteoarthritis (OA), Skin Disorder, Sleep Apnea/CPAP/BIPAP Additional Past Medical History / Comment(s): Diagnosed with mild pancreatitis on 01/22/19, NIDDM type II, neuropathy bilateral hands/legs/feet, arthritis in multiple joints, bilateral carpal tunnel syndrome, gastric ulcer, ADRIANA-no longer uses device since wt loss, varicose veins, venous dermatitis. History of Any Multi-Drug Resistant Organisms: None Reported Past Surgical History: Adenoidectomy, Appendectomy, Bariatric Surgery, Cholecystectomy, Orthopedic Surgery, Tonsillectomy Additional Past Surgical History / Comment(s): 01/13/15 Lap laila en Y gastric bypass with lysis of adhesions, EGDs, colonoscopies, bilateral knee arthroscopy, bilateral knee replacements, D&C, EGD Past Anesthesia/Blood Transfusion Reactions: No Reported Reaction Additional Past Anesthesia/Blood Transfusion Reaction / Comment(s): Pt is slow to wake from anesthesia. She has received blood in past without reaction. Past Psychological History: Anxiety, Depression Smoking Status: Former smoker Past Alcohol Use History: None Reported Past Drug Use History: None Reported - Past Family History Mother Family Medical History: Cancer, Deep Vein Thrombosis (DVT) Additional Family Medical History / Comment(s): Mother had uterine cancer. Father Family Medical History: Congestive Heart Failure (CHF), Sleep Apnea/CPAP/BIPAP Additional Family Medical History / Comment(s): Father was an alcoholic. He of CHF at the age of 48yrs. Brother(s) Family Medical History: Coronary Artery Disease (CAD) General Exam Limitations: no limitations General appearance: alert, in no apparent distress Head exam: Present: normocephalic Eye exam: Present: normal appearance, PERRL, EOMI Respiratory exam: Present: normal lung sounds bilaterally. Absent: rales Cardiovascular Exam: Present: tachycardia, irregular rhythm GI/Abdominal exam: Present: soft. Absent: tenderness Extremities exam: Present: pedal edema (+1 bilateral). Absent: calf tenderness Neurological exam: Present: alert. Absent: motor sensory deficit Psychiatric exam: Present: normal affect, normal mood Skin exam: Present: normal color Course Vital Signs 09/16/24 09/16/24 09/16/24 13:23 14:25 15:32 Temperature 99.1 F 99.0 F Pulse Rate 144 H 141 H 140 H Respiratory 18 12 14 Rate Blood Pressure 103/63 95/73 93/64 O2 Sat by Pulse 98 98 99 Oximetry EKG Findings - EKG Results: EKG: interpreted by ERMD (Atrial flutter with a rate of 141. Left axis. Inferior Q waves. Nonspecific T waves.) Medical Decision Making - Medical Decision Making Patient not provided fluid bolus secondary to A-fib with RVR with concern for foot edema and possible fluid overload Was pt. sent in by a medical professional or institution ([facility], [employer], urgent care, hospital, or alf...) When possible be specific @ -No Did you speak to anyone other than the patient for history (EMS, parent, family, police, friend...)? What history was obtained from this source @ -No Did you review nursing and triage notes (agree or disagree)? Why? @ -I reviewed and agree with nursing and triage notes Were old charts reviewed (outside hosp., previous admission, EMS record, old EKG, old radiological studies, urgent care reports/EKG's, alf records)? Report findings @ -No old charts were reviewed Differential Diagnosis (chest pain, altered mental status, abdominal pain women, abdominal pain men, vaginal bleeding, weakness, fever, dyspnea, syncope, headache, dizziness, GI bleed, back pain, seizure, CVA, palpatations, mental health, musculoskeletal)? @ -Differential Palpitations Ventricular arrhythmias, atrial arrhythmias, myocardial infarction, anemia, thyrotoxicosis, electrolyte imbalance, hypokalemia, pulmonary embolism, p ulmonary disease, drugs, alcohol, anxiety, stress.... This is not meant to be an all-inclusive list. EKG interpreted by me (3pts min.). @ -As above X-rays interpreted by me (1pt min.). @ -Chest x-ray shows no acute process CT interpreted by me (1pt min.). @ -None done U/S interpreted by me (1pt. min.). @ -None done What testing was considered but not performed or refused? (CT, X-rays, U/S, la bs)? Why? @ -None What meds were considered but not given or refused? Why? @ -None Did you discuss the management of the patient with other professionals (professionals i.e. , PA, EXHIBIT CARPENTER, lab, RT, psych nurse, social media marketing analyst, cylinder press feeder, teacher, chief merchandising officer, upper caser)? Give summary @ -Case was discussed with Dr. Freeman who will admit covering Dr. Rodríguez Was smoking cessation discussed for >3mins.? @ -No Was critical care preformed (if so, how long)? @ -32 minutes critical care time Were there social determinants of health that impacted care today? How? (Homelessness, low income, unemployed, alcoholism, drug addiction, transportation, low edu. Level, literacy, decrease access to med. care, senior care, rehab)? @ -No Was there de-escalation of care discussed even if they declined (Discuss DNR or withdrawal of care, Hospice)? DNR status @ -No What co-morbidities impacted this encounter? (DM, HTN, Smoking, COPD, CAD, Cancer, CVA, ARF, Chemo, Hep., AIDS, mental health diagnosis, sleep apnea, morbid obesity)? @ -None Was patient admitted / discharged? Hospital course, mention meds given and route, prescriptions, significant lab abnormalities, going to OR and other pertinent info. @ -Patient presents with fatigue, urinary symptoms and palpitations. Patient found to be A- flutter with RVR. Cardizem started. Heparin will be started. Patient also with urinary tract infection. Blood culture and lactic acid and IV antibiotics were all ordered. Patient reevaluated and updated on results and plan. [place] orders written. Undiagnosed new problem with uncertain prognosis? @ -No Drug Therapy requiring intensive monitoring for toxicity (Heparin, Nitro, Insulin, Cardizem)? @ -Cardizem, heparin Were any procedures done? @ -No Diagnosis/symptom? @ -A flutter with RVR, UTI Acute, or Chronic, or Acute on Chronic? @ -Acute, acute Uncomplicated (without systemic symptoms) or Complicated (systemic symptoms)? @ -Default Side effects of treatment? @ -No Exacerbation, Progression, or Severe Exacerbation? @ -No Poses a threat to life or bodily function? How? (Chest pain, [place], PR, pneumonia, PE, COPD, DKA, ARF, appy, cholecystitis, CVA, Diverticulitis, Homicidal, Suicidal, threat to staff... and all critical care pts) @ -Threat to cardiac function - Lab Data Result diagrams: 09/16/24 14:04 09/16/24 14:04 Lab Results 09/16/24 09/16/24 09/16/24 Range/Units 14:04 14:04 14:04 WBC 7.99 (4.50-10.00) 10*3/uL RBC 3.95 L (4.10-5.20) 10*6/uL Hgb 12.2 (12.0-15.0) g/dL Hct 37.8 (37.2-46.3) % MCV 95.7 (80.0-97.0) fL MCH 30.9 (27.0-32.0) pg MCHC 32.3 (32.0-37.0) g/dL Plt Count 193 (140-440) 10*3/uL MPV 10.6 (9.5-12.2) fL Immature Gran % (Auto) 0.3 % Neutrophils % 70.8 % Lymphocytes % 17.1 % Monocytes % 8.3 % Eosinophils % 2.6 % Basophils % 0.9 % Immature Gran # 0.02 (0.00-0.04) 10*3/uL Neutrophils # 5.66 (1.80-7.70) 10*3/uL Lymphocytes # 1.37 (0.90-5.00) 10*3/uL Monocytes # 0.66 (0.20-1.00) 10*3/uL Eosinophils # 0.21 (0.04-0.35) 10*3/uL Basophils # 0.07 (0.00-0.10) 10*3/uL PT 12.7 H (10.0-12.5) sec INR 1.2 H (<1.2) APTT 24.4 (22.0-30.0) sec Sodium 137 (137-145) mmol/L Potassium 4.4 (3.5-5.1) mmol/L Chloride 102 (98-107) mmol/L Carbon Dioxide 27 (22-30) mmol/L Anion Gap 8 mmol/L BUN 27 H (7-17) mg/dL Creatinine 1.02 (0.52-1.04) mg/dL Est GFR (CKD-EPI)AfAm 65 (>60 ml/min/1.73 sqM) Est GFR (CKD-EPI)NonAf 57 (>60 ml/min/1.73 sqM) Glucose 155 H (74-99) mg/dL Plasma Lactic Acid Bradly (0.7-2.0) mmol/L Calcium 8.0 L (8.4-10.2) mg/dL Total Bilirubin 1.2 (0.2-1.3) mg/dL AST 37 H (14-36) U/L ALT 9 (4-34) U/L Alkaline Phosphatase 111 (38-126) U/L Troponin I (0.000-0.034) ng/mL Total Protein 6.5 (6.3-8.2) g/dL Albumin 3.4 L (3.5-5.0) g/dL Urine Color Urine Appearance (Clear) Urine pH (5.0-8.0) Ur Specific [place] (1.001-1.035) Urine Protein (Negative) Urine Glucose (UA) (Negative) Urine Ketones (Negative) Urine Blood (Negative) Urine Nitrite (Negative) Urine Bilirubin (Negative) Urine Urobilinogen (<2.0) mg/dL Ur Leukocyte Esterase (Negative) Urine RBC (0-5) /hpf Urine WBC (0-5) /hpf Urine Bacteria (None) /hpf Hyaline Casts (0-2) /lpf Urine Mucus (None) /hpf 09/16/24 09/16/24 09/16/24 Range/Units 14:04 14:15 14:34 WBC (4.50-10.00) 10*3/uL RBC (4.10-5.20) 10*6/uL Hgb (12.0-15.0) g/dL Hct (37.2-46.3) % MCV (80.0-97.0) fL MCH (27.0-32.0) pg MCHC (32.0-37.0) g/dL Plt Count (140-440) 10*3/uL MPV (9.5-12.2) fL Immature Gran % (Auto) % Neutrophils % % Lymphocytes % % Monocytes % % Eosinophils % % Basophils % % Immature Gran # (0.00-0.04) 10*3/uL Neutrophils # (1.80-7.70) 10*3/uL Lymphocytes # (0.90-5.00) 10*3/uL Monocytes # (0.20-1.00) 10*3/uL Eosinophils # (0.04-0.35) 10*3/uL Basophils # (0.00-0.10) 10*3/uL PT (10.0-12.5) sec INR (<1.2) APTT (22.0-30.0) sec Sodium (137-145) mmol/L Potassium (3.5-5.1) mmol/L Chloride (98-107) mmol/L Carbon Dioxide (22-30) mmol/L Anion Gap mmol/L BUN (7-17) mg/dL Creatinine (0.52-1.04) mg/dL Est GFR (CKD-EPI)AfAm (>60 ml/min/1.73 sqM) Est GFR (CKD-EPI)NonAf (>60 ml/min/1.73 sqM) Glucose (74-99) mg/dL Plasma Lactic Acid Bradly 1.5 (0.7-2.0) mmol/L Calcium (8.4-10.2) mg/dL Total Bilirubin (0.2-1.3) mg/dL AST (14-36) U/L ALT (4-34) U/L Alkaline Phosphatase (38-126) U/L Troponin I <0.012 (0.000-0.034) ng/mL Total Protein (6.3-8.2) g/dL Albumin (3.5-5.0) g/dL Urine Color Yellow Urine Appearance Cloudy H (Clear) Urine pH 5.5 (5.0-8.0) Ur Specific [place] 1.023 (1.001-1.035) Urine Protein Trace H (Negative) Urine Glucose (UA) Negative (Negative) Urine Ketones Negative (Negative) Urine Blood Trace H (Negative) Urine Nitrite Negative (Negative) Urine Bilirubin Negative (Negative) Urine Urobilinogen 2.0 (<2.0) mg/dL Ur Leukocyte Esterase Large H (Negative) Urine RBC 2 (0-5) /hpf Urine WBC >182 H (0-5) /hpf Urine Bacteria Occasional H (None) /hpf Hyaline Casts 3 H (0-2) /lpf Urine Mucus Rare H (None) /hpf Critical Care Time Critical Care Time: Yes Disposition Clinical Impression: UTI (urinary tract infection), Atrial flutter with rapid ventricular response Disposition: ADMITTED IP TO THIS HOSP Is patient prescribed a controlled substance at d/c from ED?: No Referrals: Mamadou Gerard DO [Primary Care Provider] - 1-2 days Time of Disposition: 16:21
[2024-09-16 14:27] LABS: Basophils # (A) 0.07 10*3/uL (0.00-0.10); Basophils % (A) 0.9 %; Eosinophils # (A) 0.21 10*3/uL (0.04-0.35); Eosinophils % (A) 2.6 %; HCT 37.8 % (37.2-46.3); HGB 12.2 g/dL (12.0-15.0); Lymphocytes # (A) 1.37 10*3/uL (0.90-5.00); Lymphocytes % (A) 17.1 %; MCH 30.9 pg (27.0-32.0); MCHC 32.3 g/dL (32.0-37.0); MCV 95.7 fL (80.0-97.0); Monocytes # (A) 0.66 10*3/uL (0.20-1.00); Monocytes % (A) 8.3 %; Neutrophils # (A) 5.66 10*3/uL (1.80-7.70); Neutrophils % (A) 70.8 %; Platelet Count 193 10*3/uL (140-440); RBC 3.95 10*6/uL (4.10-5.20); RDW 13.9 % (11.5-14.5); WBC 7.99 10*3/uL (4.50-10.00)
--- NOTE | 2024-09-16 14:33 | XR ---
EXAMINATION TYPE: XR chest 2V DATE OF EXAM: 09/16/2024 2:24 PM COMPARISON: Chest radiographs from 09/01/2024. CLINICAL INDICATION: Female, 68 years old with history of roberta; [facility] TECHNIQUE: XR chest 2V Frontal and lateral views of the chest. FINDINGS: Lungs/Pleura: There is no evidence of pleural effusion, focal consolidation, or pneumothorax. Pulmonary vascularity: Unremarkable. Heart/mediastinum: Cardiomediastinal silhouette is unremarkable. Musculoskeletal: No acute osseous pathology. Other findings: None IMPRESSION: No acute cardiopulmonary disease/process. [facility], , 09/16/2024 2:31 PM
[2024-09-16 14:37] LABS: ALT 9 U/L (4-34); African American GFR (CKD) 65 (>60 ml/min/1.73 sqM); Albumin 3.4 g/dL (3.5-5.0); Anion Gap 8 mmol/L; Blood Urea Nitrogen 27 mg/dL (7-17); Calcium 8.0 mg/dL (8.4-10.2); Carbon Dioxide 27 mmol/L (22-30); Chloride 102 mmol/L (98-107); Glucose 155 mg/dL (74-99); Non-African American GFR(CKD) 57 (>60 ml/min/1.73 sqM); Sodium 137 mmol/L (137-145); Total Protein 6.5 g/dL (6.3-8.2)
[2024-09-16 14:41] LABS: INR 1.2 (<1.2); Partial Thromboplastin Time 24.4 sec (22.0-30.0); Prothrombin Time 12.7 sec (10.0-12.5)
[2024-09-16] MEDS: DILTIAZEM 5 MG/ML 5 ML VIAL IVP STA (14:41)
[2024-09-16] MEDS: DILTIAZEM 125 MG in DEXTROSE 5% IN WATER 100 ML IV SCH (14:41)
[2024-09-16] MEDS: ACETAMINOPHEN TAB 500 MG TAB PO STA (14:43)
[2024-09-16 15:08] LABS: Bacteria,Urine Occasional /hpf; Bilirubin,Urine Negative (Negative); Blood,Urine Trace (Negative); Color,Urine Yellow; Glucose,Urine (UA) Negative (Negative); Hyaline Casts,Urine 3 /lpf (0-2); Ketones,Urine Negative (Negative); Leukocyte Esterase,Urine Large (Negative); Mucus,Urine Rare /hpf; Nitrite,Urine Negative (Negative); PH, Urine 5.5 (5.0-8.0); Protein,Urine Trace (Negative); RBC,Urine 2 /hpf (0-5); Specific Gravity,Urine 1.023 (1.001-1.035); Urobilinogen,Urine 2.0 mg/dL (<2.0); WBC,Urine >182 /hpf (0-5)
[2024-09-16 15:16] LABS: Potassium 4.4 mmol/L (3.5-5.1)
[2024-09-16 15:17] LABS: AST 37 U/L (14-36); Alkaline Phosphatase 111 U/L (38-126)
[2024-09-16] MEDS ORDERED: NALOXONE 0.4 MG/ML 1 ML VIAL IV PRN (16:23)
[2024-09-16] MEDS ORDERED: HEPARIN SODIUM 1,000 UN/ML (10ML VL) IV PRN (16:23)
[2024-09-16] MEDS: HEPARIN SODIUM 1,000 UN/ML (10ML VL) IV ONE (16:38)
[2024-09-16] MEDS: HEPARIN SOD,PORK IN 0.45% NACL 25,000 UNIT in 0.45% NACL 1 250ML.BAG IV SCH (16:40)
[2024-09-16 17:24] LABS: T4, Free (Free Thyroxine) 1.88 ng/dL (0.78-2.19)
[2024-09-16] MEDS ORDERED: ALBUTEROL NEBULIZED 2.5 MG/3 ML INHALATION PRN (18:49)
[2024-09-16] MEDS: SYMBICORT 160-4.5 MCG INHALER INHALATION SCH (19:55)
[2024-09-16] MEDS: ALBUTEROL NEBULIZED 2.5 MG/3 ML INHALATION SCH (19:55)
[2024-09-16] MEDS: FAMOTIDINE 20 MG TAB PO SCH (20:12)
[2024-09-16] MEDS: ATORVASTATIN 40 MG TAB PO SCH (20:12)
[2024-09-16] MEDS: QUEtiapine 25 MG TAB PO SCH (20:12)
[2024-09-16] MEDS: metFORMIN 500 MG TAB PO SCH (20:12)
[2024-09-16] MEDS: METOPROLOL TARTRATE 12.5 MG TAB PO SCH (20:12)
[2024-09-17 07:49] LABS: Basophils # (A) 0.06 10*3/uL (0.00-0.10); Basophils % (A) 0.8 %; Eosinophils # (A) 0.26 10*3/uL (0.04-0.35); Eosinophils % (A) 3.6 %; HCT 35.8 % (37.2-46.3); HGB 11.3 g/dL (12.0-15.0); Lymphocytes # (A) 1.53 10*3/uL (0.90-5.00); Lymphocytes % (A) 20.9 %; MCH 30.8 pg (27.0-32.0); MCHC 31.6 g/dL (32.0-37.0); MCV 97.5 fL (80.0-97.0); Monocytes # (A) 0.53 10*3/uL (0.20-1.00); Monocytes % (A) 7.3 %; Neutrophils # (A) 4.91 10*3/uL (1.80-7.70); Neutrophils % (A) 67.1 %; Platelet Count 195 10*3/uL (140-440); RBC 3.67 10*6/uL (4.10-5.20); RDW 13.8 % (11.5-14.5); WBC 7.31 10*3/uL (4.50-10.00)
[2024-09-17 07:55] LABS: INR 1.3 (<1.2); Prothrombin Time 13.4 sec (10.0-12.5)
[2024-09-17 08:13] LABS: ALT 8 U/L (4-34); AST 20 U/L (14-36); African American GFR (CKD) 69 (>60 ml/min/1.73 sqM); Albumin 2.9 g/dL (3.5-5.0); Alkaline Phosphatase 118 U/L (38-126); Anion Gap 7 mmol/L; Blood Urea Nitrogen 22 mg/dL (7-17); Calcium 7.9 mg/dL (8.4-10.2); Carbon Dioxide 29 mmol/L (22-30); Chloride 103 mmol/L (98-107); Glucose 106 mg/dL (74-99); Magnesium 1.1 mg/dL (1.6-2.3); Non-African American GFR(CKD) 60 (>60 ml/min/1.73 sqM); Potassium 3.1 mmol/L (3.5-5.1); Sodium 139 mmol/L (137-145); Total Protein 5.7 g/dL (6.3-8.2)
[2024-09-17] MEDS: ALBUTEROL NEBULIZED 2.5 MG/3 ML INHALATION SCH (08:16)
[2024-09-17] MEDS: TIOTROPIUM 2.5 MCG INHALER INHALATION SCH (08:16)
[2024-09-17] MEDS: LINAGLIPTIN 5 MG TABLET PO SCH (09:14)
[2024-09-17] MEDS: FUROSEMIDE 40 MG TAB PO SCH (09:15)
[2024-09-17] MEDS: POTASSIUM CHLORIDE ER 20 MEQ TAB.ER PO STA (10:04)
[2024-09-17] MEDS: MAGNESIUM SULFATE-D5W PMX 1 GM in DEXTROSE/WATER 1 100ML.BAG IVPB SCH (10:42)
[2024-09-17] MEDS: POTASSIUM CHLORIDE ER 20 MEQ TAB.ER PO ONE (10:43)
--- NOTE | 2024-09-17 14:43 | P.CRDCN ---
History of Present Illness Consult date: 09/17/24 Consult reason: atrial flutter History of present illness: Patient is a 69-year-old female, followed by Dr. Turner with history of hyperlipidemia, diabetes type 2, hypertension, COPD not on home oxygen, ADRIANA not on CPAP who presents with symptoms of progressive dyspnea with mildly worsening peripheral edema. Patient reports that she is very limited on her physical activity. Patient reports that her symptoms of fatigue associated mild flutter ing has been going on for almost a week. Patient reports no chest pain but admits to be feeling lightheadedness with no incidence of fall. Patient also admits to having mild dysuria with urgency and frequent urination. Patient was recently consulted in 08/2024 for exertional dyspnea and atrial flutter with RVR. She reverted back to normal sinus rhythm during her previous hospitalization course and was not discharged on any anticoagulant. During this visit, patient is found to be in atrial flutter with RVR and thus cardiology was consulted. Patient is currently on Cardizem drip and heparin drip. NT proBNP 2430, troponin negative. Patient reports mild improvement in her symptoms since her admission. Denies chest pain, abdominal pain, diarrhea, constipation, focal neurologic deficits. Her home cardiac medications are Lipitor, Lasix and Lopressor. Her most recent echocardiogram was on 08/14/2024 which showed LVEF of 55 to 60% with mild AR and trace to mild MR and TR. Labs and images on this admission: WBC 7.3, hemoglobin 11.3, platelet 195, sodium 139, potassium 3.1, BUN 20, cre atinine 2.96, magnesium 1.1, AST 20, ALT 8, NT proBNP 2430 Urinalysis positive for leukocyte esterase EKG shows atrial flutter with RVR Chest x-ray shows trace left pleural effusion. Vitals: Pulse rate 122 bpm, respiratory 18, blood pressure 94/74, oxygen saturation 98% on room air Review of systems: Pertinent positives and negatives as discussed in HPI, a complete review of systems was performed and all other systems are negative. Physical examination: Vital signs reviewed General: non toxic, no distress Head: atraumatic, normocephalic, symmetric Eyes: EOMI, no lid lag, anicteric sclera, pupils equal round reactive to light ENT: Nose and ears atraumatic Neck: No cervical lymphadenopathy, trachea midline, supple Mouth: no lip lesion, mucus membranes moist Cardiovascular: S1S2 reg, no murmur, positive dorsalis pedis pulse bilateral, trace peripheral edema Lungs: CTA bilateral, no rhonchi, no rales, no accessory muscle use Abdominal: soft, nontender to palpation, no guarding Psych: Alert, oriented, appropriate affect Assessment: #Paroxysmal atrial flutter with RVR on this admission #Prior history of paroxysmal atrial flutter, was anticoagulated in the past #Prior history of thrombocytopenia, resolved #Hyperlipidemia #Diabetes melitis type II #Morbid obesity #Obstructive sleep apnea #Urinary tract infection Plan: Resume home cardiac medications including Lasix 40 mg p.o. daily Discontinue Cardizem drip Discontinue heparin drip [id number]: 5 points Initiate Eliquis 5 mg p.o. twice daily Change Lopressor to 25 mg 3 times daily Most recent echocardiogram was in August 2024 which showed LVEF of 55 to 60% with mild AR and trace to mild MR and TR. Repeat BMP and magnesium tomorrow a.m. Continue cardiac telemetry Dictation was produced using [employer] dictation software. Please excuse any grammatical, word or spelling errors. Seamus Cardoso MD PGY 2 Past Medical History Past Medical History: Chest Pain / Angina, COPD, Diabetes Mellitus, GERD/Reflux, Hyperlipidemia, Hypertension, Osteoarthritis (OA), Skin Disorder, Sleep Apne a/CPAP/BIPAP Additional Past Medical History / Comment(s): Diagnosed with mild pancreatitis on 01/22/19, NIDDM type II, neuropathy bilateral hands/legs/feet, arthritis in multiple joints, bilateral carpal tunnel syndrome, gastric ulcer, ADRIANA-no longer uses device since wt loss, varicose veins, venous dermatitis. History of Any Multi-Drug Resistant Organisms: None Reported Past Surgical History: Adenoidectomy, Appendectomy, Bariatric Surgery, Cholecystectomy, Orthopedic Surgery, Tonsillectomy Additional Past Surgical History / Comment(s): 01/13/15 Lap laila en Y gastric bypass with lysis of adhesions, EGDs, colonoscopies, bilateral knee arthroscopy, bilateral knee replacements, D&C, EGD Past Anesthesia/Blood Transfusion Reactions: No Reported Reaction Additional Past Anesthesia/Blood Transfusion Reaction / Comment(s): Pt is slow to wake from anesthesia. She has received blood in past without reaction. Past Psychological History: Anxiety, Depression Smoking Status: Former smoker Past Alcohol Use History: None Reported Past Drug Use History: None Reported - Past Family History Mother Family Medical History: Cancer, Deep Vein Thrombosis (DVT) Additional Family Medical History / Comment(s): Mother had uterine cancer. Father Family Medical History: Congestive Heart Failure (CHF), Sleep Apnea/CPAP/BIPAP Additional Family Medical History / Comment(s): Father was an alcoholic. He of CHF at the age of 48yrs. Brother(s) Family Medical History: Coronary Artery Disease (CAD) Medications and Allergies Home Medications Medication Instructions Recorded Confirmed Type Tiotropium 2.5 Mcg/Puff [Spiriva 2 puff INHALATION RT-DAILY 08/25/21 09/16/24 History Respimat 2.5 Mcg] Albuterol Sulfate [Albuterol 2 puff INHALATION RT-QID PRN 09/19/21 09/16/24 History Sulfate Hfa] Atorvastatin Calcium [Lipitor] 40 mg PO HS 12/07/21 09/16/24 History QUEtiapine FUMARATE [SEROquel] 25 mg PO HS 12/07/21 09/16/24 History metFORMIN HCL 1,000 mg PO BID 12/07/21 09/16/24 History Budesonide/Formoterol Fumarate 2 puff INHALATION RT-BID 02/17/22 09/16/24 History [Symbicort 160-4.5 Mcg Inhaler] Furosemide [Lasix] 40 mg PO DAILY 08/01/22 09/16/24 History sitaGLIPtin [Januvia] 100 mg PO DAILY 08/01/22 09/16/24 History Metoprolol Tartrate [Lopressor] 12.5 mg PO BID 08/05/24 09/16/24 History Nitroglycerin Sl Tabs [Nitrostat] 0.4 mg SL Q5M PRN 08/05/24 09/16/24 History Albuterol Nebulized [Ventolin 2.5 mg INHALATION RT-Q6H 09/16/24 09/16/24 History Nebulized] Allergies Allergy/AdvReac Type Severity Reaction Status Date / Time Penicillins Allergy Severe Anaphylaxis Verified 09/16/24 17:23 cyclosporine [From Restasis] Allergy Rash/Hives Verified 09/16/24 17:23 TRACE METALS Allergy itching,rachna Uncoded 09/16/24 13:26 h Physical Exam Vitals: Vital Signs Temp Pulse Resp BP Pulse Ox 09/17/24 12:02 73 09/17/24 11:53 82 09/17/24 09:06 122 H 18 94/74 98 09/17/24 08:28 96 09/17/24 08:27 102 H 09/17/24 08:16 98 09/17/24 05:27 97 16 114/71 95 09/17/24 03:00 96 18 109/67 94 L 09/17/24 01:32 98.5 F 99 19 91/59 99 09/17/24 00:20 108 H 92/56 09/16/24 23:00 113 H 16 95/49 96 09/16/24 21:00 134 H 16 107/76 94 L 09/16/24 20:07 137 H 09/16/24 19:57 135 H 09/16/24 19:16 140 H 15 90/64 96 09/16/24 18:29 138 H 12 98/65 96 09/16/24 16:23 98.9 F 140 H 14 95/62 98 09/16/24 15:32 140 H 14 93/64 99 Intake and Output 09/16/24 09/17/24 09/17/24 22:59 06:59 14:59 Intake Total 59.166 61.25 151.75 Balance 59.166 61.25 151.75 Intake: Intake, IV Titration 59.166 61.25 151.75 Amount Diltiazem 125 mg In 59.166 61.25 151.75 Dextrose 5% in Water 100 ml @ 5 MG/HR 5 mls/hr IV .Q24H [facility] Rx#:[id number] Results 09/17/24 06:55 09/17/24 06:55 Cardiac Enzymes 09/16/24 09/16/24 09/16/24 Range/Units 14:04 14:15 16:58 AST 37 H (14-36) U/L Troponin I <0.012 <0.012 (0.000-0.034) ng/mL 09/16/24 09/16/24 09/17/24 Range/Units 20:05 22:46 06:55 AST 20 (14-36) U/L Troponin I <0.012 <0.012 (0.000-0.034) ng/mL Coagulation 09/16/24 09/16/24 09/17/24 Range/Units 14:04 22:46 06:55 PT 12.7 H 13.4 H (10.0-12.5) sec APTT 24.4 53.8 H (22.0-30.0) sec CBC 09/17/24 Range/Units 06:55 WBC 7.31 (4.50-10.00) 10*3/uL RBC 3.67 L (4.10-5.20) 10*6/uL Hgb 11.3 L (12.0-15.0) g/dL Hct 35.8 L (37.2-46.3) % Plt Count 195 (140-440) 10*3/uL Comprehensive Metabolic Panel 09/16/24 09/17/24 Range/Units 14:04 06:55 Sodium 137 139 (137-145) mmol/L Potassium 4.4 3.1 L (3.5-5.1) mmol/L Chloride 102 103 (98-107) mmol/L Carbon Dioxide 27 29 (22-30) mmol/L BUN 27 H 22 H (7-17) mg/dL Creatinine 1.02 0.96 (0.52-1.04) mg/dL Glucose 155 H 106 H (74-99) mg/dL Calcium 8.0 L 7.9 L (8.4-10.2) mg/dL AST 37 H 20 (14-36) U/L ALT 9 8 (4-34) U/L Alkaline Phosphatase 111 118 (38-126) U/L Total Protein 6.5 5.7 L (6.3-8.2) g/dL Albumin 3.4 L 2.9 L (3.5-5.0) g/dL Current Medications Generic Name Dose Route Start Last Admin Trade Name Freq PRN Reason Stop Dose Admin Acetaminophen 650 mg 09/16/24 16:23 Acetaminophen Tab 325 Mg Tab PO Q6HR PRN Mild Pain or Fever > 100.5 Albuterol Sulfate 2.5 mg 09/16/24 18:49 Albuterol Nebulized 2.5 Mg/3 Ml INHALATION RT-QID PRN Shortness Of Breath Albuterol Sulfate 2.5 mg 09/17/24 08:00 09/17/24 11:53 Albuterol Nebulized 2.5 Mg/3 Ml INHALATION 2.5 mg RT-QID JAQUELINE Administration Apixaban 5 mg 09/17/24 21:00 Apixaban 5 Mg Tab PO BID [facility] Protocol Atorvastatin Calcium 40 mg 09/16/24 21:00 09/16/24 20:12 Atorvastatin 40 Mg Tab PO 40 mg HS JAQUELINE Administration Budesonide/Formoterol Fumarate 2 puff 09/16/24 20:00 09/17/24 08:16 Symbicort 160-4.5 Mcg Inhaler INHALATION 2 puff RT-BID JAQUELINE Administration Famotidine 20 mg 09/16/24 21:00 09/17/24 09:14 Famotidine 20 Mg Tab PO 20 mg BID JAQUELINE Administration Furosemide 40 mg 09/17/24 09:00 09/17/24 09:15 Furosemide 40 Mg Tab PO Not Given DAILY [facility] Ceftriaxone Sodium 2 gm/ 50 mls @ 100 mls/hr 09/18/24 09:00 Sodium Chloride IVPB Q24HR [facility] Protocol Linagliptin 5 mg 09/17/24 09:00 09/17/24 09:14 Linagliptin 5 Mg Tablet PO 5 mg DAILY JAQUELINE Administration Metformin HCl 1,000 mg 09/16/24 21:00 09/17/24 09:15 Metformin 500 Mg Tab PO 1,000 mg BID-W/MEALS JAQUELINE Administration Metoprolol Tartrate 25 mg 09/17/24 16:00 Metoprolol Tartrate 25 Mg Tab PO TID [facility] Naloxone HCl 0.2 mg 09/16/24 16:23 Naloxone 0.4 Mg/Ml 1 Ml Vial IV Q2M PRN Opioid Reversal Ondansetron HCl 4 mg 09/17/24 14:09 Ondansetron 4 Mg/2 Ml Vial IVP Q6HR PRN Nausea And Vomiting Quetiapine Fumarate 25 mg 09/16/24 21:00 09/16/24 20:12 Quetiapine 25 Mg Tab PO 25 mg HS JAQUELINE Administration Tiotropium [place] 2 puff 09/17/24 08:00 09/17/24 08:16 Tiotropium 2.5 Mcg Inhaler INHALATION 2 puff RT-DAILY JAQUELINE Administration Intake and Output 09/16/24 09/17/24 09/17/24 22:59 06:59 14:59 Intake Total 59.166 61.25 151.75 Balance 59.166 61.25 151.75 Intake: Intake, IV Titration 59.166 61.25 151.75 Amount Diltiazem 125 mg In 59.166 61.25 151.75 Dextrose 5% in Water 100 ml @ 5 MG/HR 5 mls/hr IV .Q24H [facility] Rx#:[id number] 09/17/24 06:55 09/17/24 06:55
[2024-09-17] MEDS: METOPROLOL TARTRATE 25 MG TAB PO SCH (15:33)
[2024-09-17] MEDS ORDERED: METOPROLOL TARTRATE 12.5 MG TAB PO SCH (16:00)
[2024-09-17 16:42] LABS: ALT 9 U/L (4-34); AST 20 U/L (14-36); African American GFR (CKD) 65 (>60 ml/min/1.73 sqM); Albumin 3.2 g/dL (3.5-5.0); Alkaline Phosphatase 124 U/L (38-126); Anion Gap 11 mmol/L; Blood Urea Nitrogen 21 mg/dL (7-17); Calcium 8.3 mg/dL (8.4-10.2); Carbon Dioxide 26 mmol/L (22-30); Chloride 103 mmol/L (98-107); Glucose 163 mg/dL (74-99); Non-African American GFR(CKD) 57 (>60 ml/min/1.73 sqM); Potassium 4.0 mmol/L (3.5-5.1); Sodium 140 mmol/L (137-145); Total Protein 6.0 g/dL (6.3-8.2)
[2024-09-17] MEDS: ONDANSETRON 4 MG/2 ML VIAL IVP PRN (17:05)
[2024-09-17] MEDS ORDERED: DEXTROSE 50% SYRINGE 50 ML IVP PRN ×2 (17:26)
[2024-09-17 17:56] LABS: Glucose,Whole Blood 157 mg/dL (70-110)
[2024-09-17] MEDS: INSULIN LISPRO (HumaLOG) 100 UNIT/ML 10 mL VL SQ SCH (17:59)
--- NOTE | 2024-09-17 19:25 | P.CNPUL ---
History of Present Illness Consult date: 09/17/24 Reason for consult: dyspnea History of present illness: This is a 69-year-old female patient who came into the hospital feeling weak and fatigued and her symptoms have been going on for the past 2 weeks. She also reports some shortness of breath and ongoing dysuria. No cough. No sputum production. No chest pain. No palpitations. No previous history of cardiac arrhythmias. Nevertheless, the patient has had previous history of urinary t ract infection and the most recent infection was on 07/31/2024 attributed to an E. coli UTI. In the emergency, the patient was on room air oxygen. Chest x-ray was noted and it showed no acute cardiopulmonary abnormalities. No focal consolidation or airspace disease. The patient's white cell count is 7.3 with hemoglobin 9.3 and a platelet count of 195. BUN is 21 with a creatinine of 1.01. Electrolytes are all within normal limits. proBNP level was 2430. Troponins were negative. The patient was found to be in atrial flutter. At the same time, there is a concern for urine tract infection as the UA was abnormal consistent with UTI. Started on IV Rocephin. Seen by cardiology. Started on anticoagulation with Eliquis. She is also on metoprolol 25 mg 3 times daily for rate control. She is also on a combination of Symbicort and Spiriva and Ventolin rescue inhaler on as-needed basis. Urine cultures and blood cultures still pending for now. She is on Lasix 40 mg p.o. daily. Resting comfortably in bed. Denies having any other complaints. Review of Systems 14 point review of system was done and was essentially negative other than things mentioned above in history of present illness Past Medical History Past Medical History: Chest Pain / Angina, COPD, Diabetes Mellitus, GERD/Reflux, Hyperlipidemia, Hypertension, Osteoarthritis (OA), Skin Disorder, Sleep Apnea/CPAP/BIPAP Additional Past Medical History / Comment(s): Diagnosed with mild pancreatitis on 01/22/19, NIDDM type II, neuropathy bilateral hands/legs/feet, arthritis in multiple joints, bilateral carpal tunnel syndrome, gastric ulcer, ADRIANA-no longer uses device since wt loss, varicose veins, venous dermatitis. History of Any Multi-Drug Resistant Organisms: None Reported Past Surgical History: Adenoidectomy, Appendectomy, Bariatric Surgery, Cholecystectomy, Orthopedic Surgery, Tonsillectomy Additional Past Surgical History / Comment(s): 01/13/15 Lap chinedu en Y gastric bypass with lysis of adhesions, EGDs, colonoscopies, bilateral knee arthroscopy, bilateral knee replacements, D&C, EGD Past Anesthesia/Blood Transfusion Reactions: No Reported Reaction Additional Past Anesthesia/Blood Transfusion Reaction / Comment(s): Pt is slow to wake from anesthesia. She has received blood in past without reaction. Past Psychological History: Anxiety, Depression Smoking Status: Former smoker Past Alcohol Use History: None Reported Past Drug Use History: None Reported - Past Family History Mother Family Medical History: Cancer, Deep Vein Thrombosis (DVT) Additional Family Medical History / Comment(s): Mother had uterine cancer. Father Family Medical History: Congestive Heart Failure (CHF), Sleep Apnea/CPAP/BIPAP Additional Family Medical History / Comment(s): Father was an alcoholic. He of CHF at the age of 48yrs. Brother(s) Family Medical History: Coronary Artery Disease (CAD) Medications and Allergies Home Medications Medication Instructions Recorded Confirmed Type Tiotropium 2.5 Mcg/Puff [Spiriva 2 puff INHALATION RT-DAILY 08/25/21 09/16/24 History Respimat 2.5 Mcg] Albuterol Sulfate [Albuterol 2 puff INHALATION RT-QID PRN 09/19/21 09/16/24 History Sulfate Hfa] Atorvastatin Calcium [Lipitor] 40 mg PO HS 12/07/21 09/16/24 History QUEtiapine FUMARATE [SEROquel] 25 mg PO HS 12/07/21 09/16/24 History metFORMIN HCL 1,000 mg PO BID 12/07/21 09/16/24 History Budesonide/Formoterol Fumarate 2 puff INHALATION RT-BID 02/17/22 09/16/24 Histo ry [Symbicort 160-4.5 Mcg Inhaler] Furosemide [Lasix] 40 mg PO DAILY 08/01/22 09/16/24 History sitaGLIPtin [Januvia] 100 mg PO DAILY 08/01/22 09/16/24 History Metoprolol Tartrate [Lopressor] 12.5 mg PO BID 08/05/24 09/16/24 History Nitroglycerin Sl Tabs [Nitrostat] 0.4 mg SL Q5M PRN 08/05/24 09/16/24 History Albuterol Nebulized [Ventolin 2.5 mg INHALATION RT-Q6H 09/16/24 09/16/24 History Nebulized] Allergies Allergy/AdvReac Type Severity Reaction Status Date / Time Penicillins Allergy Severe Anaphylaxis Verified 09/16/24 17:23 cyclosporine [From Restasis] Allergy Rash/Hives Verified 09/16/24 17:23 TRACE METALS Allergy itching,rachna Uncoded 09/16/24 13:26 h Physical Exam Vitals: Vital Signs Temp Pulse Resp BP Pulse Ox 09/17/24 15:34 118 H 18 103/70 97 09/17/24 15:13 122 H 09/17/24 15:05 118 H 09/17/24 14:42 117 H 16 111/69 98 09/17/24 12:02 73 09/17/24 11:53 82 09/17/24 09:06 122 H 18 94/74 98 09/17/24 08:28 96 09/17/24 08:27 102 H 09/17/24 08:16 98 09/17/24 05:27 97 16 114/71 95 09/17/24 03:00 96 18 109/67 94 L 09/17/24 01:32 98.5 F 99 19 91/59 99 09/17/24 00:20 108 H 92/56 09/16/24 23:00 113 H 16 95/49 96 09/16/24 21:00 134 H 16 107/76 94 L 09/16/24 20:07 137 H 09/16/24 19:57 135 H Intake and Output 09/17/24 09/17/24 09/17/24 06:59 14:59 22:59 Intake Total 61.25 151.75 Balance 61.25 151.75 Intake: Intake, IV Titration 61.25 151.75 Amount Diltiazem 125 mg In 61.25 151.75 Dextrose 5% in Water 100 ml @ 5 MG/HR 5 mls/hr IV .Q24H [facility] Rx#:[id number] The patient appeared well nourished and normally developed. Vital signs as documented. Head exam is unremarkable. No scleral icterus or corneal arcus noted. Neck is without jugular venous distension, thyromegaly, or carotid bruits. Carotid upstrokes are brisk bilaterally. Lungs are clear to auscultation and percussion. Cardiac exam reveals the PMI to be normally sized and situated. Rhythm is regular. First and second heart sounds normal. No murmurs, rubs or gallops. The rhythm is atrial flutter with a controlled rate Abdominal exam reveals normal bowel sounds, no masses, no organomegaly and no aortic enlargement. Extremities are nonedematous and both femoral and pedal pulses are normal. Examination of the skin revealed no evidence of significant rashes, suspicious appearing nevi or other concerning lesions. Neurologically, the patient is awake and alert and the patient does not have any focal neurological deficit. Cranial nerves are essentially intact. Results - Laboratory Findings CBC and BMP: 09/17/24 06:55 09/17/24 15:23 PT/INR, D-dimer PT 13.4 sec (10.0-12.5) H 09/17/24 06:55 INR 1.3 (<1.2) H 09/17/24 06:55 Abnormal lab findings: Abnormal Labs 09/16/24 09/16/24 09/16/24 14:04 14:04 14:04 RBC 3.95 L Hgb Hct MCV MCHC PT 12.7 H INR 1.2 H APTT Potassium BUN 27 H Glucose 155 H POC Glucose (mg/dL) Calcium 8.0 L Magnesium AST 37 H Total Protein Albumin 3.4 L Urine Appearance Urine Protein Urine Blood Ur Leukocyte Esterase Urine WBC Urine Bacteria Hyaline Casts Urine Mucus 09/16/24 09/16/24 09/17/24 14:34 22:46 06:55 RBC Hgb Hct MCV MCHC PT 13.4 H INR 1.3 H APTT 53.8 H Potassium BUN Glucose POC Glucose (mg/dL) Calcium Magnesium AST Total Protein Albumin Urine Appearance Cloudy H Urine Protein Trace H Urine Blood Trace H Ur Leukocyte Esterase Large H Urine WBC >182 H Urine Bacteria Occasional H Hyaline Casts 3 H Urine Mucus Rare H 09/17/24 09/17/24 09/17/24 06:55 06:55 15:23 RBC 3.67 L Hgb 11.3 L Hct 35.8 L MCV 97.5 H MCHC 31.6 L PT INR APTT Potassium 3.1 L BUN 22 H 21 H Glucose 106 H 163 H POC Glucose (mg/dL) Calcium 7.9 L 8.3 L Magnesium 1.1 L AST Total Protein 5.7 L 6.0 L Albumin 2.9 L 3.2 L Urine Appearance Urine Protein Urine Blood Ur Leukocyte Esterase Urine WBC Urine Bacteria Hyaline Casts Urine Mucus 09/17/24 17:55 RBC Hgb Hct MCV MCHC PT INR APTT Potassium BUN Glucose POC Glucose (mg/dL) 157 H Calcium Magnesium AST Total Protein Albumin Urine Appearance Urine Protein Urine Blood Ur Leukocyte Esterase Urine WBC Urine Bacteria Hyaline Casts Urine Mucus - Diagnostic Findings Chest x-ray: image reviewed Assessment and Plan Plan: Shortness of breath, multifactorial. Attributed to underlying urine tract infection complicated by further development of a flutter/fib with RVR at time of admission. The patient is currently on room air oxygen. Chest x-ray remains clear. Rule out underlying CHF. proBNP level was elevated at time of admission. Most recent echocardiogram from August 2024 showed an ejection fraction of 55 to 60% with mild AR, mild MR and TR. Paroxysmal atrial flutter with RVR at the time of admission. Currently rate is under better control and the patient is on metoprolol 25 mg p.o. 3 times daily and the patient was started on anticoagulation with Eliquis. Urine tract infection, awaiting urine cultures and the patient is currently on IV Rocephin Diabetes mellitus type 2 Hyperlipidemia Obesity, previous Chinedu-en-Y gastric bypass surgery Obstructive sleep apnea, not utilizing CPAP therapy. COPD which is currently inactive and stable and the patient is currently on a combination of tiotropium, Symbicort and albuterol rescue inhaler on a as needed basis. Previous history of pancreatitis back in 2018 Peripheral neuropathy, likely related to her diabetes mellitus Diabetes mellitus type 2 Varicose veins Degenerative arthritis Gastric ulcer, no recent bleeding Status post left-sided thoracentesis on 09/24/2021 with removal of 1.25 L Plan Patient is currently on room air oxygen Continue IV Rocephin Urine cultures and blood cultures Cardiology regarding the A-flutter. The patient was started on anticoagulation due to concerns of stroke in association with atrial flutter. She is currently on Eliquis 5 mg p.o. twice daily. Lopressor for rate control 25 mg 3 times daily Oral Lasix Resume continue tiotropium and Symbicort and albuterol rescue inhaler management basis. Will continue to follow
[2024-09-17 20:49] LABS: Glucose,Whole Blood 102 mg/dL (70-110)
[2024-09-17] MEDS: ACETAMINOPHEN TAB 325 MG TAB PO PRN (20:53)
[2024-09-17] MEDS: APIXABAN 5 MG TAB PO SCH (20:54)
[2024-09-18 05:51] LABS: Glucose,Whole Blood 124 mg/dL (70-110)
[2024-09-18 07:03] LABS: Basophils # (A) 0.04 10*3/uL (0.00-0.10); Basophils % (A) 0.6 %; Eosinophils # (A) 0.22 10*3/uL (0.04-0.35); Eosinophils % (A) 3.5 %; HCT 35.4 % (37.2-46.3); HGB 11.0 g/dL (12.0-15.0); Lymphocytes # (A) 1.56 10*3/uL (0.90-5.00); Lymphocytes % (A) 24.8 %; MCH 31.0 pg (27.0-32.0); MCHC 31.1 g/dL (32.0-37.0); MCV 99.7 fL (80.0-97.0); Monocytes # (A) 0.57 10*3/uL (0.20-1.00); Monocytes % (A) 9.1 %; Neutrophils # (A) 3.86 10*3/uL (1.80-7.70); Neutrophils % (A) 61.5 %; Platelet Count 180 10*3/uL (140-440); RBC 3.55 10*6/uL (4.10-5.20); RDW 13.8 % (11.5-14.5); WBC 6.28 10*3/uL (4.50-10.00)
[2024-09-18 07:16] LABS: African American GFR (CKD) 50 (>60 ml/min/1.73 sqM); Anion Gap 10 mmol/L; Blood Urea Nitrogen 24 mg/dL (7-17); Calcium 8.6 mg/dL (8.4-10.2); Carbon Dioxide 25 mmol/L (22-30); Chloride 105 mmol/L (98-107); Glucose 103 mg/dL (74-99); Magnesium 1.9 mg/dL (1.6-2.3); Non-African American GFR(CKD) 43 (>60 ml/min/1.73 sqM); Potassium 4.2 mmol/L (3.5-5.1); Sodium 140 mmol/L (137-145)
--- NOTE | 2024-09-18 10:27 | P.HPIM ---
History of Present Illness Chief Complaint: Generalized fatigue with shortness of breath on exertion. History of present illness; 69-year-old female with a history of angina, COPD not on home oxygen, diabetes mellitus, hyperlipidemia, hypertension and sleep apnea, presenting to the ED with complaints of fatigue and shortness of breath on exertion. Patient reports feeling weak and fatigued for the past two weeks. She initially reports shortness of breath on exertion however she is currently experiencing shortness of breath at rest as well. Patient reports orthopnea. She reports noticing bilateral swelling in her legs in the past few weeks. Patient denies chest pain and palpitations but admits to feeling lightheadedness with standing but no inc ident of recent fall. Patient also reports to having dysuria with primary urgency and frequency. Of note patient known to cardiology due to having leaky valves as well as was recently consulted in 08/2024 for exertional dyspnea and atrial flutter with RVR. She reverted back to normal sinus rhythm during her previous hospitalization course and was not discharged on any anticoagulant Patient not on oxygen at home. She reports being an ex-smoker of 15 years. In the ED, patient noted to be in active atrial flutter for which cardiology consulted and she was placed on IV heparin and diltiazem. Patient also placed on IV ceftriaxone for UTI symptoms. lab work significant for WBC 7.31, hemoglobi n 11.3, sodium 139, potassium 3.1, serial troponins less than 0.012. Urine cloudy in appearance and positive for >182 white blood cells, with occasional bacteria and hyaline casts. Trace blood and protein also evident. An EKG obtained was significant for atrial flutter with rapid ventricular response. Furthermore a chest x-ray obtained ruled out acute cardiopulmonary processes. Patient currently admitted to medical team with consults from Cardiology. REVIEW OF SYSTEMS: As stated above in HPI. The rest of the 14-point review of systems is negative. Vital signs reviewed PHYSICAL EXAMINATION: General: non toxic, no distress Head: atraumatic, normocephalic, symmetric Eyes: EOMI, no lid lag, anicteric sclera, pupils equal round reactive to light ENT: Nose and ears atraumatic Neck: No cervical lymphadenopathy, trachea midline, supple Mouth: no lip lesion, mucus membranes moist Cardiovascular: S1S2 reg, trace peripheral edema Lungs: normal breath sounds, no rhonchi, no rales, no accessory muscle use Abdominal: soft, nontender to palpation, no guarding Psych: Alert, oriented, appropriate affect Assessment and Plan #Paroxysmal atrial flutter with RVR on this admission -Resume home cardiac medications including Lasix 40 mg p.o. daily -Discontinue Cardizem drip -Discontinue heparin drip -[id number]: 5 points -Initiate Eliquis 5 mg p.o. twice daily -Change Lopressor to 25 mg 3 times daily -Most recent echocardiogram was in August 2024 which showed LVEF of 55 to 60% with mild AR and trace to mild MR and TR. -Continue cardiac telemetry -Cardiology on consult, appreciate further recommendations. #Electrical derangement - hypokalemia and hypomagnesemia - repleat Potassium 60mmol - repleat Magnesium - Repeat BMP and Magnesium tomorrow a.m #Urinary tract infections -IV ceftriaxone 2g Q24H, pending cultures -Follow up urine culture results and modify antibiotics accordingly. Chronic Conditions: #Hyperlipidemia #Diabetes melitis type II #Morbid obesity #Obstructive sleep apnea - Continue F: None E: Repleat potassium and magnesium as needed N: Heart Healthy diet DVT ppx: on apaxaban 5mg BID GI ppx: Pepcid Nelson Salas MD PGY1 Internal Medicine Dictation was produced using [employer] dictation software. please excuse any grammatical, word or spelling errors. Past Medical History Past Medical History: Chest Pain / Angina, COPD, Diabetes Mellitus, GERD/Reflux, Hyperlipidemia, Hypertension, Osteoarthritis (OA), Skin Disorder, Sleep Apnea/CPAP/BIPAP Additional Past Medical History / Comment(s): Diagnosed with mild pancreatitis on 01/22/19, NIDDM type II, neuropathy bilateral hands/legs/feet, arthritis in multiple joints, bilateral carpal tunnel syndrome, gastric ulcer, ADRIANA-no longer uses device since wt loss, varicose veins, venous dermatitis. History of Any Multi-Drug Resistant Organisms: None Reported Past Surgical History: Adenoidectomy, Appendectomy, Bariatric Surgery, Cholecystectomy, Orthopedic Surgery, Tonsillectomy Additional Past Surgical History / Comment(s): 01/13/15 Lap laila en Y gastric bypass with lysis of adhesions, EGDs, colonoscopies, bilateral knee arthroscopy, bilateral knee replacements, D&C, EGD Past Anesthesia/Blood Transfusion Reactions: No Reported Reaction Additional Past Anesthesia/Blood Transfusion Reaction / Comment(s): Pt is slow to wake from anesthesia. She has received blood in past without reaction. Past Psychological History: Anxiety, Depression Smoking Status: Former smoker Past Alcohol Use History: None Reported Past Drug Use History: None Reported - Past Family History Mother Family Medical History: Cancer, Deep Vein Thrombosis (DVT) Additional Family Medical History / Comment(s): Mother had uterine cancer. Father Family Medical History: Congestive Heart Failure (CHF), Sleep Apnea/CPAP/BIPAP Additional Family Medical History / Comment(s): Father was an alcoholic. He of CHF at the age of 48yrs. Brother(s) Family Medical History: Coronary Artery Disease (CAD) Medications and Allergies Home Medications Medication Instructions Recorded Confirmed Type Tiotropium 2.5 Mcg/Puff [Spiriva 2 puff INHALATION RT-DAILY 08/25/21 09/16/24 History Respimat 2.5 Mcg] Albuterol Sulfate [Albuterol 2 puff INHALATION RT-QID PRN 09/19/21 09/16/24 History Sulfate Hfa] Atorvastatin Calcium [Lipitor] 40 mg PO HS 12/07/21 09/16/24 History QUEtiapine FUMARATE [SEROquel] 25 mg PO HS 12/07/21 09/16/24 History metFORMIN HCL 1,000 mg PO BID 12/07/21 09/16/24 History Budesonide/Formoterol Fumarate 2 puff INHALATION RT-BID 02/17/22 09/16/24 History [Symbicort 160-4.5 Mcg Inhaler] Furosemide [Lasix] 40 mg PO DAILY 08/01/22 09/16/24 History sitaGLIPtin [Januvia] 100 mg PO DAILY 08/01/22 09/16/24 History Metoprolol Tartrate [Lopressor] 12.5 mg PO BID 08/05/24 09/16/24 History Nitroglycerin Sl Tabs [Nitrostat] 0.4 mg SL Q5M PRN 08/05/24 09/16/24 History Albuterol Nebulized [Ventolin 2.5 mg INHALATION RT-Q6H 09/16/24 09/16/24 History Nebulized] Allergies Allergy/AdvReac Type Severity Reaction Status Date / Time Penicillins Allergy Severe Anaphylaxis Verified 09/16/24 17:23 cyclosporine [From Restasis] Allergy Rash/Hives Verified 09/16/24 17:23 TRACE METALS Allergy itching,rachna Uncoded 09/16/24 13:26 h Physical Exam Vitals: Vital Signs Temp Pulse Resp BP Pulse Ox 09/17/24 09:06 122 H 18 94/74 98 09/17/24 08:28 96 09/17/24 08:27 102 H 09/17/24 08:16 98 09/17/24 05:27 97 16 114/71 95 09/17/24 03:00 96 18 109/67 94 L 09/17/24 01:32 98.5 F 99 19 91/59 99 09/17/24 00:20 108 H 92/56 09/16/24 23:00 113 H 16 95/49 96 09/16/24 21:00 134 H 16 107/76 94 L 09/16/24 20:07 137 H 09/16/24 19:57 135 H 09/16/24 19:16 140 H 15 90/64 96 09/16/24 18:29 138 H 12 98/65 96 09/16/24 16:23 98.9 F 140 H 14 95/62 98 09/16/24 15:32 140 H 14 93/64 99 09/16/24 14:25 99.0 F 141 H 12 95/73 98 09/16/24 13:23 99.1 F 144 H 18 103/63 98 Intake and Output 09/16/24 09/17/24 09/17/24 22:59 06:59 14:59 Intake Total 59.166 61.25 97.75 Balance 59.166 61.25 97.75 Intake: Intake, IV Titration 59.166 61.25 97.75 Amount Diltiazem 125 mg In 59.166 61.25 97.75 Dextrose 5% in Water 100 ml @ 5 MG/HR 5 mls/hr IV .Q24H [facility] Rx#:[id number] Results CBC & Chem 7: 09/17/24 06:55 09/17/24 15:23 Labs: Abnormal Lab Results - Last 24 Hours (Table) 09/16/24 09/16/24 09/16/24 Range/Units 14:04 14:04 14:04 RBC 3.95 L (4.10-5.20) 10*6/uL Hgb (12.0-15.0) g/dL Hct (37.2-46.3) % MCV (80.0-97.0) fL MCHC (32.0-37.0) g/dL PT 12.7 H (10.0-12.5) sec INR 1.2 H (<1.2) APTT (22.0-30.0) sec Potassium (3.5-5.1) mmol/L BUN 27 H (7-17) mg/dL Glucose 155 H (74-99) mg/dL Calcium 8.0 L (8.4-10.2) mg/dL Magnesium (1.6-2.3) mg/dL AST 37 H (14-36) U/L Total Protein (6.3-8.2) g/dL Albumin 3.4 L (3.5-5.0) g/dL Urine Appearance (Clear) Urine Protein (Negative) Urine Blood (Negative) Ur Leukocyte Esterase (Negative) Urine WBC (0-5) /hpf Urine Bacteria (None) /hpf Hyaline Casts (0-2) /lpf Urine Mucus (None) /hpf 09/16/24 09/16/24 09/17/24 Range/Units 14:34 22:46 06:55 RBC (4.10-5.20) 10*6/uL Hgb (12.0-15.0) g/dL Hct (37.2-46.3) % MCV (80.0-97.0) fL MCHC (32.0-37.0) g/dL PT 13.4 H (10.0-12.5) sec INR 1.3 H (<1.2) APTT 53.8 H (22.0-30.0) sec Potassium (3.5-5.1) mmol/L BUN (7-17) mg/dL Glucose (74-99) mg/dL Calcium (8.4-10.2) mg/dL Magnesium (1.6-2.3) mg/dL AST (14-36) U/L Total Protein (6.3-8.2) g/dL Albumin (3.5-5.0) g/dL Urine Appearance Cloudy H (Clear) Urine Protein Trace H (Negative) Urine Blood Trace H (Negative) Ur Leukocyte Esterase Large H (Negative) Urine WBC >182 H (0-5) /hpf Urine Bacteria Occasional H (None) /hpf Hyaline Casts 3 H (0-2) /lpf Urine Mucus Rare H (None) /hpf 09/17/24 09/17/24 Range/Units 06:55 06:55 RBC 3.67 L (4.10-5.20) 10*6/uL Hgb 11.3 L (12.0-15.0) g/dL Hct 35.8 L (37.2-46.3) % MCV 97.5 H (80.0-97.0) fL MCHC 31.6 L (32.0-37.0) g/dL PT (10.0-12.5) sec INR (<1.2) APTT (22.0-30.0) sec Potassium 3.1 L (3.5-5.1) mmol/L BUN 22 H (7-17) mg/dL Glucose 106 H (74-99) mg/dL Calcium 7.9 L (8.4-10.2) mg/dL Magnesium 1.1 L (1.6-2.3) mg/dL AST (14-36) U/L Total Protein 5.7 L (6.3-8.2) g/dL Albumin 2.9 L (3.5-5.0) g/dL Urine Appearance (Clear) Urine Protein (Negative) Urine Blood (Negative) Ur Leukocyte Esterase (Negative) Urine WBC (0-5) /hpf Urine Bacteria (None) /hpf Hyaline Casts (0-2) /lpf Urine Mucus (None) /hpf
[2024-09-18 11:50] LABS: Glucose,Whole Blood 130 mg/dL (70-110)
[2024-09-18] MEDS: METOPROLOL TARTRATE 25 MG TAB PO STA (11:59)
[2024-09-18] MEDS ORDERED: MIDAZOLAM 2 MG/2 ML VIAL IV PRN (12:50)
[2024-09-18] MEDS ORDERED: fentaNYL (PF) 50 MCG/ML 2 ML AMP IVP PRN (12:50)
[2024-09-18] MEDS ORDERED: BENZOCAINE SPRAY 1 EACH MM PRN (12:50)
[2024-09-18] MEDS: AMIODARONE 200 MG TAB PO SCH (13:05)
--- NOTE | 2024-09-18 13:14 | P.PN ---
Subjective Subjective: 69-year-old female with a history of angina, COPD not on home oxygen, diabetes mellitus, hyperlipidemia, hypertension and sleep apnea, presenting to the ED with complaints of fatigue and shortness of breath on exertion. Patient reports feeling weak and fatigued for the past two weeks. She initially reports shortness of breath on exertion however she is currently experiencing shortness of breath at rest as well. Patient reports orthopnea. She reports noticing bilateral swelling in her legs in the past few weeks. Patient denies chest pain and palpitations but admits to feeling lightheadedness with standing but no incident of recent fall. Patient also reports to having dysuria with primary urgency and frequency. Of note patient known to cardiology due to having leaky valves as well as was recently consulted in 08/2024 for exertional dyspnea and atrial flutter with RVR. She reverted back to normal sinus rhythm during her previous hospitalization course and was not discharged on any anticoagulant Patient not on oxygen at home. She reports being an ex-smoker of 15 years. In the ED, patient noted to be in active atrial flutter for which cardiology consulted and she was placed on IV heparin and diltiazem. Patient also placed on IV ceftriaxone for UTI symptoms. lab work significant for WBC 7.31, hemoglobin 11.3, sodium 139, potassium 3.1, serial troponins less than 0.012. Urine cloudy in appearance and positive for >182 white blood cells, with occasional bacteria and hyaline casts. Trace blood and protein also evident. An EKG obtained was significant for atrial flutter with rapid ventricular response. Furthermore a chest x-ray obtained ruled out acute cardiopulmonary processes. Patient currently admitted to medical team with consults from Cardiology. 09/18: Patient seen at bedside. Reported feeling nauseous. Denied chest pain and palpitations. Diarrhea and vomiting completely resolved. Slept well last night. Currently hemodynamically stable. Pertinent positives and negatives discussed above, a complete review of systems was preformed and all the other sytems were negative. Vitals Signs Reviewed. Heart rate 135, RR 18, BP 97/67, SpO2 99 on room air. General: non toxic, no distress, appears at stated age, normal weight Derm: no unusual rashes/lesions, warm Head: atraumatic, normocephalic, symmetric Eyes: EOMI, no lid lag, anicteric sclera, pupils equal round reactive to light ENT: Nose and ears atraumatic Neck: No cervical lymphadenopathy, trachea midline, supple Mouth: no lip lesion, mucus membranes moist Cardiovascular: S1S2 reg, no murmur, positive dorsalis pedis pulse bilateral, no edema Lungs: Decreased air entry bilaterally, no rhonchi, no rales, no accessory muscle use Abdominal: soft, nontender to palpation, no guarding Ext: muscle strength 5 out of 5 in all 4 extremities grossly, no gross muscle atrophy, no contractures, Neuro: CN II-XI grossly intact, no gross focal neuro deficits Psych: Alert, oriented, appropriate affect Data Reviewed Today: 09/18/2024 Patient Labs: Sodium 140, potassium 4.2, magnesium 1.9, proBNP 2430, WBC 6.25, hemoglobin 11. Urine cultures positive for gram-negative bacilli. Imaging: No new images Assessment and Plan #Paroxysmal atrial flutter with RVR on this admission -Increase Lopressor to 50 mg 3 times daily, as per Cardiology -Start Amiodarone 400mg as per cardiology - If rate not controlled, patient will have TTE guided cardioversion performed by Cardiology -Continue Eliquis 5 mg p.o. twice daily -continue home cardiac medications including Lasix 40 mg p.o. daily -[id number]: 5 points -Most recent echocardiogram was in August 2024 which showed LVEF of 55 to 60% with mild AR and trace to mild MR and TR. -Continue cardiac telemetry -Cardiology on consult, appreciate further recommendations. #Shortness of breath, multifactorial. Attributed to underlying urine tract infection complicated by further development of a flutter/fib with RVR at time of admission. The patient is currently on room air oxygen. Chest x-ray remains clear. Rule out underlying CHF. -Currently on room air -Continue tiotropium and Symbicort and albuterol rescue inhaler, as per pulmonology Pulmonology on consult, appreciate further recommendations #Electrical derangement - hypokalemia and hypomagnesemia - repleat Potassium 60mmol - repleat Magnesium - currently hypomagnesemia and hypokalemia resolved - K 4.2, Mag 1.9 - Repeat BMP and Magnesium tomorrow a.m #Urinary tract infections -IV ceftriaxone 2g Q24H, pending cultures (started 09/17, day2 of 5) -Follow up urine culture results and modify antibiotics accordingly. Chronic Conditions: #Hyperlipidemia #Diabetes melitis type II #Morbid obesity #Obstructive sleep apnea - Continue F: None E: Repleat potassium and magnesium as needed N: N.P.O after midnight DVT ppx: on apaxaban 5mg BID GI ppx: Pepcid Objective - Vital Signs Vital signs: Vital Signs Temp 98.8 F 09/18/24 08:40 Pulse 135 H 09/18/24 08:40 Resp 18 09/18/24 08:40 BP 97/67 09/18/24 08:40 Pulse Ox 99 09/18/24 08:40 FiO2 Intake & Output 09/17/24 09/18/24 09/18/24 18:59 06:59 18:59 Intake Total 151.75 240 Balance 151.75 240 Weight 90.718 kg Intake: Intake, IV Titration 151.75 Amount Diltiazem 125 mg In 151.75 Dextrose 5% in Water 100 ml @ 5 MG/HR 5 mls/hr IV .Q24H [facility] Rx#:[id number] Oral 240 Other: Voiding Method External Catheter # Voids 0 - Labs CBC & Chem 7: 09/18/24 06:12 09/18/24 06:12 Labs: Abnormal Lab Results - Last 24 Hours (Table) 09/17/24 09/17/24 09/18/24 Range/Units 15:23 17:55 05:49 RBC (4.10-5.20) 10*6/uL Hgb (12.0-15.0) g/dL Hct (37.2-46.3) % MCV (80.0-97.0) fL MCHC (32.0-37.0) g/dL BUN 21 H (7-17) mg/dL Creatinine (0.52-1.04) mg/dL Glucose 163 H (74-99) mg/dL POC Glucose (mg/dL) 157 H 124 H (70-110) mg/dL Calcium 8.3 L (8.4-10.2) mg/dL Total Protein 6.0 L (6.3-8.2) g/dL Albumin 3.2 L (3.5-5.0) g/dL 09/18/24 09/18/24 Range/Units 06:12 06:12 RBC 3.55 L (4.10-5.20) 10*6/uL Hgb 11.0 L (12.0-15.0) g/dL Hct 35.4 L (37.2-46.3) % MCV 99.7 H (80.0-97.0) fL MCHC 31.1 L (32.0-37.0) g/dL BUN 24 H (7-17) mg/dL Creatinine 1.26 H (0.52-1.04) mg/dL Glucose 103 H (74-99) mg/dL POC Glucose (mg/dL) (70-110) mg/dL Calcium (8.4-10.2) mg/dL Total Protein (6.3-8.2) g/dL Albumin (3.5-5.0) g/dL Microbiology - Last 24 Hours (Table) 09/16/24 14:15 Blood Culture - Preliminary Blood 09/16/24 14:34 Urine Culture - Preliminary Urine,Catheterized Gram Neg Bacilli
--- NOTE | 2024-09-18 13:25 | P.PN ---
Subjective Progress Note Date: 09/18/24 Patient is a 69-year-old female, followed by Dr. Turner with history of hyperlipidemia, diabetes type 2, hypertension, COPD not on home oxygen, ADRIANA not on CPAP who presents with symptoms of progressive dyspnea with mildly worsening peripheral edema. Patient reports that she is very limited on her physical activity. Patient reports that her symptoms of fatigue associated mild fluttering has been going on for almost a week. Patient reports no chest pain but admits to be feeling lightheadedness with no incidence of fall. Patient also admits to having mild dysuria with urgency and frequent urination. Patient was recently consulted in 08/2024 for exertional dyspnea and atrial flutter with RVR. She reverted back to normal sinus rhythm during her previous hospitalization course and was not discharged on any anticoagulant. During this visit, patient is found to be in atrial flutter with RVR and thus cardiology was consulted. Patient is currently on Cardizem drip and heparin drip. NT proBNP 2 430, troponin negative. Patient reports mild improvement in her symptoms since her admission. Denies chest pain, abdominal pain, diarrhea, constipation, focal neurologic deficits. Her home cardiac medications are Lipitor, Lasix and Lopressor. Her most recent echocardiogram was on 08/14/2024 which showed LVEF of 55 to 60% with mild AR and trace to mild MR and TR. Labs and images on this admission: WBC 7.3, hemoglobin 11.3, platelet 195, sodium 139, potassium 3.1, BUN 20, creatinine 2.96, magnesium 1.1, AST 20, ALT 8, NT proBNP 2430 Urinalysis positive for leukocyte esterase EKG shows atrial flutter with RVR Chest x-ray shows trace left pleural effusion. 09/18/2024: Patient seen and examined at the bedside. Patient reports no chest pain, palpitation but continued feel exertional dyspnea and lightheadedness with physical activity. Heart rate is in 130s and patient continues to be in a flutter. Labs show WBC 6.2, hemoglobin 11, platelet count 180, sodium 140, potassium 4.2, BUN 24, creatinine 1.26, magnesium 1.9 Physical examination: Vital signs reviewed General: non toxic, no distress Head: atraumatic, normocephalic, symmetric Eyes: EOMI, no lid lag, anicteric sclera, pupils equal round reactive to light ENT: Nose and ears atraumatic Neck: No cervical lymphadenopathy, trachea midline, supple Mouth: no lip lesion, mucus membranes moist Cardiovascular: S1S2 reg, no murmur, positive dorsalis pedis pulse bilateral, trace peripheral edema Lungs: CTA bilateral, no rhonchi, no rales, no accessory muscle use Abdominal: soft, nontender to palpation, no guarding Psych: Alert, oriented, appropriate affect Assessment: #Paroxysmal atrial flutter with RVR on this admission #Prior history of paroxysmal atrial flutter, was anticoagulated in the past #Prior history of thrombocytopenia, resolved #Hyperlipidemia #Diabetes melitis type II #Morbid obesity #Obstructive sleep apnea #Urinary tract infection Plan: Continue Home cardiac medications including Lasix 40 mg p.o. daily [id number]: 5 points Continue Eliquis 5 mg p.o. twice daily Change Lopressor to 50 mg 3 times daily Add amiodarone 400 mg twice daily If rate is not controlled and patient is not converted to sinus rhythm by tomorrow, will perform MARIA ELENA guided cardioversion Keep patient n.p.o. after midnight Most recent echocardiogram was in August 2024 which showed LVEF of 55 to 60% with mild AR and trace to mild MR and TR. Repeat BMP and magnesium tomorrow a.m. Continue cardiac telemetry Dictation was produced using [employer] dictation software. Please excuse any grammatical, word or spelling errors. Seamus Cardoso MD PGY 2 Objective - Vital Signs Vital signs: Vital Signs Temp 98.8 F 09/18/24 08:40 Pulse 135 H 09/18/24 08:40 Resp 18 09/18/24 08:40 BP 97/67 09/18/24 08:40 Pulse Ox 99 09/18/24 08:40 FiO2 Intake & Output 09/17/24 09/18/24 09/18/24 18:59 06:59 18:59 Intake Total 151.75 240 Output Total 400 Balance 151.75 -160 Weight 90.718 kg Intake: Intake, IV Titration 151.75 Amount Diltiazem 125 mg In 151.75 Dextrose 5% in Water 100 ml @ 5 MG/HR 5 mls/hr IV .Q24H [facility] Rx#:[id number] Oral 240 Output: Urine 400 Other: Voiding Method External Catheter # Voids 0 - Labs CBC & Chem 7: 09/18/24 06:12 09/18/24 06:12 Labs: Abnormal Lab Results - Last 24 Hours (Table) 09/17/24 09/17/24 09/18/24 Range/Units 15:23 17:55 05:49 RBC (4.10-5.20) 10*6/uL Hgb (12.0-15.0) g/dL Hct (37.2-46.3) % MCV (80.0-97.0) fL MCHC (32.0-37.0) g/dL BUN 21 H (7-17) mg/dL Creatinine (0.52-1.04) mg/dL Glucose 163 H (74-99) mg/dL POC Glucose (mg/dL) 157 H 124 H (70-110) mg/dL Calcium 8.3 L (8.4-10.2) mg/dL Total Protein 6.0 L (6.3-8.2) g/dL Albumin 3.2 L (3.5-5.0) g/dL 09/18/24 09/18/24 09/18/24 Range/Units 06:12 06:12 11:48 RBC 3.55 L (4.10-5.20) 10*6/uL Hgb 11.0 L (12.0-15.0) g/dL Hct 35.4 L (37.2-46.3) % MCV 99.7 H (80.0-97.0) fL MCHC 31.1 L (32.0-37.0) g/dL BUN 24 H (7-17) mg/dL Creatinine 1.26 H (0.52-1.04) mg/dL Glucose 103 H (74-99) mg/dL POC Glucose (mg/dL) 130 H (70-110) mg/dL Calcium (8.4-10.2) mg/dL Total Protein (6.3-8.2) g/dL Albumin (3.5-5.0) g/dL Microbiology - Last 24 Hours (Table) 09/16/24 14:15 Blood Culture - Preliminary Blood 09/16/24 14:34 Urine Culture - Preliminary Urine,Catheterized Gram Neg Bacilli
--- NOTE | 2024-09-18 14:19 | P.PN ---
Subjective Progress Note Date: 09/18/24 This is a 69-year-old female patient who came into the hospital feeling weak and fatigued and her symptoms have been going on for the past 2 weeks. She also reports some shortness of breath and ongoing dysuria. No cough. No sputum production. No chest pain. No palpitations. No previous history of cardiac arrhythmias. Nevertheless, the patient has had previous history of urinary tract infection and the most recent infection was on 07/31/2024 attributed to an E. coli UTI. In the emergency, the patient was on room air oxygen. Chest x-ray was noted and it showed no acute cardiopulmonary abnormalities. No focal consolidation or airspace disease. The patient's white cell count is 7.3 with hemoglobin 9.3 and a platelet count of 195. BUN is 21 with a creatinine of 1.01. Electrolytes are all within normal limits. proBNP level was 2430. Troponins were negative. The patient was found to be in atrial flutter. At the same time, there is a concern for urine tract infection as the UA was abnormal consistent with UTI. Started on IV Rocephin. Seen by cardiology. Started on anticoagulation with Eliquis. She is also on metoprolol 25 mg 3 times daily for rate control. She is also on a combination of Symbicort and Spiriva and Ventolin rescue inhaler on as-needed basis. Urine cultures and blood cultures still pending for now. She is on Lasix 40 mg p.o. daily. Resting comfortably i n bed. Denies having any other complaints. On 09/18/2024, the patient is being seen for a follow-up. The patient was hospitalized for worsening shortness of breath, UTI and a flutter. The urine culture is showing gram-negative bacillus and the patient remains on IV Rocephin. Her heart rate is still fluctuating and the patient is seen by cardiology. The patient is currently on anticoagulation with Eliquis 5 mg p.o. twice daily. The patient is also on amiodarone 4 mg p.o. twice a day and met oprolol 50 mg p.o. 3 times daily. Rest of the medication remains unchanged. Respiratory status is stable and patient remains on room air oxygen with a pulse ox of 99%. Her EKG from today is still showing atrial flutter with some mild tachycardia with a heart rate of 105. No fever. No hypotension. No other complaints otherwise for now. Objective - Vital Signs Vital signs: Vital Signs Temp 98.8 F 09/18/24 08:40 Pulse 135 H 09/18/24 08:40 Resp 18 09/18/24 08:40 BP 97/67 09/18/24 08:40 Pulse Ox 99 09/18/24 08:40 FiO2 Intake & Output 09/17/24 09/18/24 09/18/24 18:59 06:59 18:59 Intake Total 151.75 240 Output Total 400 Balance 151.75 -160 Weight 90.718 kg Intake: Intake, IV Titration 151.75 Amount Diltiazem 125 mg In 151.75 Dextrose 5% in Water 100 ml @ 5 MG/HR 5 mls/hr IV .Q24H [facility] Rx#:[id number] Oral 240 Output: Urine 400 Other: Voiding Method External Catheter # Voids 0 - Exam The patient appeared well nourished and normally developed. Vital signs as documented. Head exam is unremarkable. No scleral icterus or corneal arcus noted. Neck is without jugular venous distension, thyromegaly, or carotid bruits. Carotid upstrokes are brisk bilaterally. Lungs are clear to auscultation and percussion. Cardiac exam reveals the PMI to be normally sized and situated. Rhythm is regular. First and second heart sounds normal. No murmurs, rubs or gallops. The rhythm is atrial flutter with a controlled rate Abdominal exam reveals normal bowel sounds, no masses, no organomegaly and no aortic enlargement. Extremities are nonedematous and both femoral and pedal pulses are normal. Examination of the skin revealed no evidence of significant rashes, suspicious appearing nevi or other concerning lesions. Neurologically, the patient is awake and alert and the patient does not have any focal neurological deficit. Cranial nerves are essentially intact. - Labs CBC & Chem 7: 09/18/24 06:12 09/18/24 06:12 Labs: Abnormal Lab Results - Last 24 Hours (Table) 09/17/24 09/17/24 09/18/24 Range/Units 15:23 17:55 05:49 RBC (4.10-5.20) 10*6/uL Hgb (12.0-15.0) g/dL Hct (37.2-46.3) % MCV (80.0-97.0) fL MCHC (32.0-37.0) g/dL BUN 21 H (7-17) mg/dL Creatinine (0.52-1.04) mg/dL Glucose 163 H (74-99) mg/dL POC Glucose (mg/dL) 157 H 124 H (70-110) mg/dL Calcium 8.3 L (8.4-10.2) mg/dL Total Protein 6.0 L (6.3-8.2) g/dL Albumin 3.2 L (3.5-5.0) g/dL 09/18/24 09/18/24 09/18/24 Range/Units 06:12 06:12 11:48 RBC 3.55 L (4.10-5.20) 10*6/uL Hgb 11.0 L (12.0-15.0) g/dL Hct 35.4 L (37.2-46.3) % MCV 99.7 H (80.0-97.0) fL MCHC 31.1 L (32.0-37.0) g/dL BUN 24 H (7-17) mg/dL Creatinine 1.26 H (0.52-1.04) mg/dL Glucose 103 H (74-99) mg/dL POC Glucose (mg/dL) 130 H (70-110) mg/dL Calcium (8.4-10.2) mg/dL Total Protein (6.3-8.2) g/dL Albumin (3.5-5.0) g/dL Microbiology - Last 24 Hours (Table) 09/16/24 14:15 Blood Culture - Preliminary Blood 09/16/24 14:34 Urine Culture - Preliminary Urine,Catheterized Gram Neg Bacilli Assessment and Plan Plan: Shortness of breath, multifactorial. Attributed to underlying urine tract infection complicated by further development of a flutter/fib with RVR at time of admission. The patient is currently on room air oxygen. Chest x-ray remains clear. Rule out underlying CHF. proBNP level was elevated at time of admission. Most recent echocardiogram from August 2024 showed an ejection fraction of 55 to 60% with mild AR, mild MR and TR. Paroxysmal atrial flutter with RVR at the time of admission. Patient is currently on amiodarone 400 mg p.o. twice a day and metoprolol 25 mg p.o. 3 times daily and the patient was started on anticoagulation with Eliquis. Urine tract infection, awaiting urine cultures and the patient is currently on IV Rocephin, urine culture showing gram-negative bacillus Diabetes mellitus type 2 Hyperlipidemia Obesity, previous Chinedu-en-Y gastric bypass surgery Obstructive sleep apnea, not utilizing CPAP therapy. COPD which is currently inactive and stable and the patient is currently on a combination of tiotropium, Symbicort and albuterol rescue inhaler on a as needed basis. Previous history of pancreatitis back in 2018 Peripheral neuropathy, likely related to her diabetes mellitus Diabetes mellitus type 2 Varicose veins Degenerative arthritis Gastric ulcer, no recent bleeding Status post left-sided thoracentesis on 09/24/2021 with removal of 1.25 L Plan Patient is currently on room air oxygen Continue IV Rocephin Urine cultures and blood cultures Cardiology regarding the A-flutter. The patient was started on anticoagulation due to concerns of stroke in association with atrial flutter. She is currently on Eliquis 5 mg p.o. twice daily. Lopressor for rate control 25 mg 3 times daily in combination with amiodarone Oral Lasix Resume continue tiotropium and Symbicort and albuterol rescue inhaler management basis. Will continue to follow
[2024-09-18] MEDS: METOPROLOL TARTRATE 50 MG TAB PO SCH (15:36)
[2024-09-18 16:36] LABS: Glucose,Whole Blood 138 mg/dL (70-110)
[2024-09-18 20:02] LABS: Glucose,Whole Blood 178 mg/dL (70-110)
[2024-09-19 06:08] LABS: Glucose,Whole Blood 166 mg/dL (70-110)
[2024-09-19 07:28] LABS: Basophils # (A) 0.05 10*3/uL (0.00-0.10); Basophils % (A) 0.7 %; Eosinophils # (A) 0.21 10*3/uL (0.04-0.35); Eosinophils % (A) 2.9 %; HCT 34.2 % (37.2-46.3); HGB 10.5 g/dL (12.0-15.0); Lymphocytes # (A) 1.53 10*3/uL (0.90-5.00); Lymphocytes % (A) 21.4 %; MCH 30.0 pg (27.0-32.0); MCHC 30.7 g/dL (32.0-37.0); MCV 97.7 fL (80.0-97.0); Monocytes # (A) 0.68 10*3/uL (0.20-1.00); Monocytes % (A) 9.5 %; Neutrophils # (A) 4.65 10*3/uL (1.80-7.70); Neutrophils % (A) 64.9 %; Platelet Count 183 10*3/uL (140-440); RBC 3.50 10*6/uL (4.10-5.20); RDW 14.0 % (11.5-14.5); WBC 7.16 10*3/uL (4.50-10.00)
[2024-09-19 08:02] LABS: ALT 6 U/L (4-34); AST 16 U/L (14-36); African American GFR (CKD) 62 (>60 ml/min/1.73 sqM); Albumin 2.7 g/dL (3.5-5.0); Alkaline Phosphatase 105 U/L (38-126); Anion Gap 7 mmol/L; Blood Urea Nitrogen 22 mg/dL (7-17); Calcium 8.7 mg/dL (8.4-10.2); Carbon Dioxide 26 mmol/L (22-30); Chloride 105 mmol/L (98-107); Glucose 161 mg/dL (74-99); Magnesium 1.6 mg/dL (1.6-2.3); Non-African American GFR(CKD) 54 (>60 ml/min/1.73 sqM); Potassium 4.0 mmol/L (3.5-5.1); Sodium 138 mmol/L (137-145); Total Protein 5.4 g/dL (6.3-8.2)
[2024-09-19] MEDS: SODIUM CHLORIDE 0.9% 1,000 ML IV ONE ×2 (08:45→09:23)
[2024-09-19] MEDS ORDERED: PROPOFOL 10 MG/ML 20 ML VIAL IV ONE (08:56)
[2024-09-19] MEDS: BENZOCAINE SPRAY 1 EACH MUCOUS MEM ONE (09:07)
--- NOTE | 2024-09-19 09:25 | P.PCN ---
Date of Procedure: 09/19/24 Operative Findings: TRANSESOPHAGEAL ECHOCARDIOGRAM COAL CHUTE WORKER: GEE ANGEL MD, RPVI INDICATION: Rule out intracardiac thrombus before cardioversion SEDATION: Conscious sedation COMPLICATION: None LEVEL OF SEDATION The procedure was performed using propofol with SHORT ORDER COOK in the room PROCEDURE DESCRIPTION: After obtaining an informed consent, the patient was brought to transesophageal echocardiogram room. Pulse oximetry and heart monitors were attached to the patient. The patient throat was sprayed using lidocaine. The patient was turned into left lateral position. After that a bite guard was placed. After an appropriate conscious sedation was initiated, the transesophageal echocardiogram was advanced through a bite guard into the mid esophagus. A 2-D echocardiogram images, color Doppler images, continuous wave images, pulse-wave images, of various cardiac structure were performed. After that the transesophageal echocardiogram probe was advanced into the stomach and fixed to obtain transgastric view was. The probe was brought into the mid esophagus. Inter-atrial septum was interrogated using 2D images, color Doppler images, and then contrast study. After that transesophageal echocardiogram was withdrawn out and upon withdrawing the descending thoracic aorta all the way up to the arch was evaluated. CONCLUSION: 1. Intact left atrial appendage with no thrombus 2. Cardiomyopathy with EF between 35 to 40% 3. Mild to moderate aortic and mitral regurgitation 4. Intact interatrial septum
--- NOTE | 2024-09-19 09:26 | P.PCN ---
Date of Procedure: 09/19/24 Operative Findings: Cardioversion Report Performing physician Axel Aguilar M.D. Procedure performed Successful cardioversion of atrial flutter to normal sinus mechanism using 200 J at first attempt Indication Symptomatic atrial fibrillation Complication None Level of sedation The procedure was performed under deep sedation using propofol with FOOD SCIENCE TECHNICIAN in the room Procedure description After obtaining an informed consent the patient was brought to the recovery room. Sedation was introduced using propofol with FOOD SCIENCE TECHNICIAN in the room. Subsequently the patient cardioverted from atrial fibrillation to normal sinus mechanism using 200 J and first attempt Postprocedure management Continue the current medical regimen Continue oral anticoagulation Follow-up with the patient
[2024-09-19] MEDS: FAMOTIDINE 20 MG TAB PO SCH (10:31)
[2024-09-19 10:42] LABS: Glucose,Whole Blood 126 mg/dL (70-110)
--- NOTE | 2024-09-19 14:30 | P.PN ---
Subjective Progress Note Date: 09/19/24 This is a 69-year-old female patient who came into the hospital feeling weak and fatigued and her symptoms have been going on for the past 2 weeks. She also reports some shortness of breath and ongoing dysuria. No cough. No sputum production. No chest pain. No palpitations. No previous history of cardiac arrhythmias. Nevertheless, the patient has had previous history of urinary tract infection and the most recent infection was on 07/31/2024 attributed to an E. coli UTI. In the emergency, the patient was on room air oxygen. Chest x-ray was noted and it showed no acute cardiopulmonary abnormalities. No focal consolidation or airspace disease. The patient's white cell count is 7.3 with hemoglobin 9.3 and a platelet count of 195. BUN is 21 with a creatinine of 1.01. Electrolytes are all within normal limits. proBNP level was 2430. Troponins were negative. The patient was found to be in atrial flutter. At the same time, there is a concern for urine tract infection as the UA was abnormal consistent with UTI. Started on IV Rocephin. Seen by cardiology. Started on anticoagulation with Eliquis. She is also on metoprolol 25 mg 3 times daily for rate control. She is also on a combination of Symbicort and Spiriva and Ventolin rescue inhaler on as-needed basis. Urine cultures and blood cultures still pending for now. She is on Lasix 40 mg p.o. daily. Resting comfortably i n bed. Denies having any other complaints. On 09/18/2024, the patient is being seen for a follow-up. The patient was hospitalized for worsening shortness of breath, UTI and a flutter. The urine culture is showing gram-negative bacillus and the patient remains on IV Rocephin. Her heart rate is still fluctuating and the patient is seen by cardiology. The patient is currently on anticoagulation with Eliquis 5 mg p.o. twice daily. The patient is also on amiodarone 4 mg p.o. twice a day and met oprolol 50 mg p.o. 3 times daily. Rest of the medication remains unchanged. Respiratory status is stable and patient remains on room air oxygen with a pulse ox of 99%. Her EKG from today is still showing atrial flutter with some mild tachycardia with a heart rate of 105. No fever. No hypotension. No other complaints otherwise for now. On today's evaluation of 09/19/2024, the patient is being seen for a follow-up. The patient underwent a successful cardioversion for atrial flutter and the patient is currently back to normal sinus rhythm. This was done using a 200 J and it was successful in the first event. Currently, she is a bit sedated. Meanwhile, the urine culture was positive for Klebsiella pneumoniae, sensitive to Rocephin and the patient remains on IV Rocephin. Hemodynamically stable. No significant respiratory distress and the patient currently is on Symbicort and Spiriva as maintenance regarding her COPD and ventilation and inhaler on a straight basis. Rest of the medication have been or resumed. She is resting comfortably in bed. Family is at the bedside. Objective - Vital Signs Vital signs: Vital Signs Temp 98.6 F 09/19/24 10:27 Pulse 72 09/19/24 10:27 Resp 17 09/19/24 10:27 BP 104/73 09/19/24 10:27 Pulse Ox 93 L 09/19/24 10:27 FiO2 Intake & Output 09/18/24 09/19/24 09/19/24 18:59 06:59 18:59 Intake Total 462 100 Output Total 700 200 Balance -238 -200 100 Weight 90.718 kg 97.6 kg Intake: IV 100 Oral 462 Output: Urine 700 200 Other: Voiding Method External Catheter External Catheter External Catheter - Exam The patient appeared well nourished and normally developed. Vital signs as documented. Head exam is unremarkable. No scleral icterus or corneal arcus noted. Neck is without jugular venous distension, thyromegaly, or carotid bruits. Carotid upstrokes are brisk bilaterally. Lungs are clear to auscultation and percussion. Cardiac exam reveals the PMI to be normally sized and situated. Rhythm is regular. First and second heart sounds normal. No murmurs, rubs or gallops. The rhythm is atrial flutter with a controlled rate Abdominal exam reveals normal bowel sounds, no masses, no organomegaly and no aortic enlargement. Extremities are nonedematous and both femoral and pedal pulses are normal. Examination of the skin revealed no evidence of significant rashes, suspicious appearing nevi or other concerning lesions. Neurologically, the patient is awake and alert and the patient does not have any focal neurological deficit. Cranial nerves are essentially intact. - Labs CBC & Chem 7: 09/19/24 06:23 09/19/24 06:23 Labs: Abnormal Lab Results - Last 24 Hours (Table) 09/18/24 09/18/24 09/18/24 Range/Units 11:48 16:35 20:01 RBC (4.10-5.20) 10*6/uL Hgb (12.0-15.0) g/dL Hct (37.2-46.3) % MCV (80.0-97.0) fL MCHC (32.0-37.0) g/dL BUN (7-17) mg/dL Creatinine (0.52-1.04) mg/dL Glucose (74-99) mg/dL POC Glucose (mg/dL) 130 H 138 H 178 H (70-110) mg/dL Total Protein (6.3-8.2) g/dL Albumin (3.5-5.0) g/dL 09/19/24 09/19/24 09/19/24 Range/Units 06:06 06:23 06:23 RBC 3.50 L (4.10-5.20) 10*6/uL Hgb 10.5 L (12.0-15.0) g/dL Hct 34.2 L (37.2-46.3) % MCV 97.7 H (80.0-97.0) fL MCHC 30.7 L (32.0-37.0) g/dL BUN 22 H (7-17) mg/dL Creatinine 1.06 H (0.52-1.04) mg/dL Glucose 161 H (74-99) mg/dL POC Glucose (mg/dL) 166 H (70-110) mg/dL Total Protein 5.4 L (6.3-8.2) g/dL Albumin 2.7 L (3.5-5.0) g/dL 09/19/24 Range/Units 10:40 RBC (4.10-5.20) 10*6/uL Hgb (12.0-15.0) g/dL Hct (37.2-46.3) % MCV (80.0-97.0) fL MCHC (32.0-37.0) g/dL BUN (7-17) mg/dL Creatinine (0.52-1.04) mg/dL Glucose (74-99) mg/dL POC Glucose (mg/dL) 126 H (70-110) mg/dL Total Protein (6.3-8.2) g/dL Albumin (3.5-5.0) g/dL Microbiology - Last 24 Hours (Table) 09/16/24 14:15 Blood Culture - Preliminary Blood 09/16/24 14:34 Urine Culture - Final Urine,Catheterized Klebsiella pneumoniae Assessment and Plan Plan: Shortness of breath, multifactorial. Attributed to underlying urine tract infec tion complicated by further development of a flutter/fib with RVR at time of admission. The patient is currently on room air oxygen. Chest x-ray remains clear. Rule out underlying CHF. proBNP level was elevated at time of admission. Most recent echocardiogram from August 2024 showed an ejection f raction of 55 to 60% with mild AR, mild MR and TR. post cardioversion her current cardiac rhythm is sinus. Resting comfortably in bed. No significant shortness of breath. Paroxysmal atrial flutter with RVR at the time of admission. Patient is currently on amiodarone 400 mg p.o. twice a day and metoprolol 50 mg twice daily times daily and the patient was started on anticoagulation with Eliquis. The patient underwent a successful cardioversion and the patient is currently back in normal sinus rhythm. Urine tract infection, secondary to Klebsiella pneumoniae, gram-negative urine tract infection the patient is currently on IV Rocephin Diabetes mellitus type 2 Hyperlipidemia Obesity, previous Chinedu-en-Y gastric bypass surgery Obstructive sleep apnea, not utilizing CPAP therapy. COPD which is currently inactive and stable and the patient is currently on a combination of tiotropium, Symbicort and albuterol rescue inhaler on a as needed basis. Previous history of pancreatitis back in 2018 Peripheral neuropathy, likely related to her diabetes mellitus Diabetes mellitus type 2 Varicose veins Degenerative arthritis Gastric ulcer, no recent bleeding Status post left-sided thoracentesis on 09/24/2021 with removal of 1.25 L Plan Patient is currently on room air oxygen Continue IV Rocephin Urine cultures positive for Klebsiella pneumoniae Post cardioversion and patient's cardiac rhythm is sinus. She is currently on Eliquis 5 mg p.o. twice daily. Lopressor for rate c 50 mg p.o. twice daily times daily in combination with amiodarone 4 mg p.o. daily Oral Lasix 40 mg p.o. daily Resume continue tiotropium and Symbicort and albuterol rescue inhaler management basis. Will continue to follow
--- NOTE | 2024-09-19 14:46 | P.PN ---
Subjective Subjective: 69-year-old female with a history of angina, COPD not on home oxygen, diabetes mellitus, hyperlipidemia, hypertension and sleep apnea, presenting to the ED with complaints of fatigue and shortness of breath on exertion. Patient reports feeling weak and fatigued for the past two weeks. She initially reports shortness of breath on exertion however she is currently experiencing shortness of breath at rest as well. Patient reports orthopnea. She reports noticing bilateral swelling in her legs in the past few weeks. Patient denies chest pain and palpitations but admits to feeling lightheadedness with standing but no incident of recent fall. Patient also reports to having dysuria with primary urgency and frequency. Of note patient known to cardiology due to having leaky valves as well as was recently consulted in 08/2024 for exertional dyspnea and atrial flutter with RVR. She reverted back to normal sinus rhythm during her p revious hospitalization course and was not discharged on any anticoagulant Patient not on oxygen at home. She reports being an ex-smoker of 15 years. In the ED, patient noted to be in active atrial flutter for which cardiology consulted and she was placed on IV heparin and diltiazem. Patient also placed on IV ceftriaxone for UTI symptoms. lab work significant for WBC 7.31, hemoglobin 11.3, sodium 139, potassium 3.1, serial troponins less than 0.012. Urine cloudy in appearance and positive for >182 white blood cells, with occasional bacteria and hyaline casts. Trace blood and protein also evident. An EKG obtained was significant for atrial flutter with rapid ventricular response. Furthermore a chest x-ray obtained ruled out acute cardiopulmonary processes. Patient currently admitted to medical team with consults from Cardiology. 09/18: Patient seen at bedside. Reported feeling nauseous. Denied chest pain and palpitations. Diarrhea and vomiting completely resolved. Slept well last night. Currently hemodynamically stable. 09/19. Patient seen at bedside. Underwent TTE and cardioversion tolerated procedure well. Status post cardioversion,, patient returned to normal sinus using 200 J at first attempt. Pertinent positives and negatives discussed above, a complete review of systems was preformed and all the other sytems were negative. Vitals Signs Reviewed. Heart rate 68, RR 17, BP 96/56, [id number] on room air. General: non toxic, no distress, appears at stated age, normal weight Derm: no unusual rashes/lesions, warm Head: atraumatic, normocephalic, symmetric Eyes: EOMI, no lid lag, anicteric sclera, pupils equal round reactive to light ENT: Nose and ears atraumatic Neck: No cervical lymphadenopathy, trachea midline, supple Mouth: no lip lesion, mucus membranes moist Cardiovascular: S1S2 reg, no murmur, positive dorsalis pedis pulse bilateral, no edema Lungs: Decreased air entry bilaterally, no rhonchi, no rales, no accessory muscle use Abdominal: soft, nontender to palpation, no guarding Ext: muscle strength 5 out of 5 in all 4 extremities grossly, no gross muscle atrophy, no contractures, Neuro: CN II-XI grossly intact, no gross focal neuro deficits Psych: Alert, oriented, appropriate affect Data Reviewed Today: 09/19/2024 Patient Labs: WBC 7.16, hemoglobin 10.5, sodium 138, potassium 4, magnesium 1.6. Urine cultures positive for Klebsiella pneumoniae Imaging: No new images Assessment and Plan #Paroxysmal atrial flutter with RVR on this admission -Increase Lopressor to 50 mg 3 times daily, as per Cardiology -Start Amiodarone 400mg as per cardiology - If rate not controlled, patient will have TTE guided cardioversion performed by Cardiology -Continue Eliquis 5 mg p.o. twice daily -continue home cardiac medications including Lasix 40 mg p.o. daily -[id number]: 5 points -S/p cardioversion am TTE 09/19 rhythm returned to sinus new recorded ejection fraction 35 to 40% previously 55 to 60% August 2024 Patient currently hypotensive 88/51 pending restabilization -Continue cardiac telemetry -Cardiology on consult, appreciate further recommendations. #Shortness of breath, multifactorial. Attributed to underlying urine tract i nfection complicated by further development of a flutter/fib with RVR at time of admission. The patient is currently on room air oxygen. Chest x-ray remains clear. Rule out underlying CHF. -Currently on room air -Continue tiotropium and Symbicort and albuterol rescue inhaler, as per pulmonology Pulmonology on consult, appreciate further recommendations #Electrical derangement - hypokalemia and hypomagnesemia - repleat Potassium 60mmol - repleat Magnesium - currently hypomagnesemia and hypokalemia resolved - K 4.2, Mag 1.9 - Repeat BMP and Magnesium tomorrow a.m #Urinary tract infections -IV ceftriaxone 2g Q24H, (started 09/17, day2 of 5) -Cultures positive for Klebsiella pneumoniae, continue duration of antibiotics. Chronic Conditions: #Hyperlipidemia #Diabetes melitis type II #Morbid obesity #Obstructive sleep apnea - Continue F: None E: Repleat potassium and magnesium as needed N: N.P.O after midnight DVT ppx: on apaxaban 5mg BID GI ppx: Pepcid Dispo: S/p cardioversion and MARIA ELENA hypotensive postprocedure. Pending compensation Objective - Vital Signs Vital signs: Vital Signs Temp 98.0 F 09/19/24 08:17 Pulse 69 09/19/24 09:24 Resp 18 09/19/24 09:24 BP 88/51 09/19/24 09:24 Pulse Ox 99 09/19/24 09:24 FiO2 Intake & Output 09/18/24 09/19/24 09/19/24 18:59 06:59 18:59 Intake Total 462 50 Output Total 700 200 Balance -238 -200 50 Weight 90.718 kg 97.6 kg Intake: IV 50 Oral 462 Output: Urine 700 200 Other: Voiding Method External Catheter External Catheter - Labs CBC & Chem 7: 09/19/24 06:23 09/19/24 06:23 Labs: Abnormal Lab Results - Last 24 Hours (Table) 09/18/24 09/18/24 09/18/24 Range/Units 11:48 16:35 20:01 RBC (4.10-5.20) 10*6/uL Hgb (12.0-15.0) g/dL Hct (37.2-46.3) % MCV (80.0-97.0) fL MCHC (32.0-37.0) g/dL BUN (7-17) mg/dL Creatinine (0.52-1.04) mg/dL Glucose (74-99) mg/dL POC Glucose (mg/dL) 130 H 138 H 178 H (70-110) mg/dL Total Protein (6.3-8.2) g/dL Albumin (3.5-5.0) g/dL 09/19/24 09/19/24 09/19/24 Range/Units 06:06 06:23 06:23 RBC 3.50 L (4.10-5.20) 10*6/uL Hgb 10.5 L (12.0-15.0) g/dL Hct 34.2 L (37.2-46.3) % MCV 97.7 H (80.0-97.0) fL MCHC 30.7 L (32.0-37.0) g/dL BUN 22 H (7-17) mg/dL Creatinine 1.06 H (0.52-1.04) mg/dL Glucose 161 H (74-99) mg/dL POC Glucose (mg/dL) 166 H (70-110) mg/dL Total Protein 5.4 L (6.3-8.2) g/dL Albumin 2.7 L (3.5-5.0) g/dL Microbiology - Last 24 Hours (Table) 09/16/24 14:15 Blood Culture - Preliminary Blood 09/16/24 14:34 Urine Culture - Final Urine,Catheterized Klebsiella pneumoniae
[2024-09-19 16:15] LABS: Glucose,Whole Blood 196 mg/dL (70-110)
--- NOTE | 2024-09-19 17:36 | CDI ---
Documentation Clarification Form Date: 09/19/2024 04:46:44 PM From: Deanne Butterfield RN, CCDS Phone: [phone] Admit Date: 09/16/2024 04:23:00 PM Patient Name: Samantha Priest Visit Number: [id number] Discharge Date: ATTENTION: The Clinical Documentation Specialists (CDI) and [facility] Coding Staff appreciate your assistance in clarifying documentation. Please respond to the clarification below the line at the bottom and electronically sign. The CDI & [facility] Coding staff will review the response and follow-up if needed. Please note: Queries are made part of the Legal Health Record. If you have any questions, please contact the author of this message via ITS. DoctorAmanda Martinez Paroxysmal Atrial Flutter with RVR is documented in the Cardiology consult and subsequent progress notes Additional clarification regarding the type of Atrial Flutter is requested. History/Risk factors: Chest Pain / Angina, Diabetes Mellitus, Hypertension Clinical Indicators: 68-year-old female with symptoms of progressive dyspnea with mildly worsening peripheral edema. She was found to be in atrial flutter with RVR. 09/16 (13:23) 103/63 144 18 99.1 98% RA, (14:25) 95/73 141 12 99.0 98% RA 09/16 Labs: WBC 7.99, Trop <0.012, BNP 2430, 09/16 EKG: Atrial Flutter/Tachycardia with RVR Vent rate 141 09/16 CXR: No acute cardiopulmonary disease/process. Treatment: Strap Sewer /Telemetry Cardizem drip 09/16-09/17 Heparin drip 09/16-09/16 Eliquis 5 MG PO BID 09/17-09/19 Lopressor 25 MG PO TID 09/17-09/18>50 MG PO TID 09/18-09/19> 50 MG PO BID 09/19 Cordarone 400mg PO BID 09/17-09/19 Please further clarify the type of Atrial Flutter, if known: [ xx ] Typical/Type I [ ] Atypical/Type II [ ] Other, please specify [ ] Unable to determine (Template Last Revised: May 2020) MTDD
--- NOTE | 2024-09-19 19:29 | P.PN ---
Subjective Progress Note Date: 09/19/24 Patient is a 69-year-old female, followed by Dr. Turner with history of hyperlipidemia, diabetes type 2, hypertension, COPD not on home oxygen, ADRIANA not on CPAP who presents with symptoms of progressive dyspnea with mildly worsening peripheral edema. Patient reports that she is very limited on her physical activity. Patient reports that her symptoms of fatigue associated mild fluttering has been going on for almost a week. Patient reports no chest pain but admits to be feeling lightheadedness with no incidence of fall. Patient also admits to having mild dysuria with urgency and frequent urination. Patient was recently consulted in 08/2024 for exertional dyspnea and atrial flutter with RVR. She reverted back to normal sinus rhythm during her previous hospitalization course and was not discharged on any anticoagulant. During this visit, patient is found to be in atrial flutter with RVR and thus cardiology was consulted. Patient is currently on Cardizem drip and heparin drip. NT proBNP 2430, troponin negative. Patient reports mild improvement in her symptoms since her admission. Denies chest pain, abdominal pain, diarrhea, constipation, focal neurologic deficits. Her home cardiac medications are Lipitor, Lasix and Lopressor. Her most recent echocardiogram was on 08/14/2024 which showed LVEF of 55 to 60% with mild AR and trace to mild MR and TR. Labs and images on this admission: WBC 7.3, hemoglobin 11.3, platelet 195, sodium 139, potassium 3.1, BUN 20, creatinine 2.96, magnesium 1.1, AST 20, ALT 8, NT proBNP 2430 Urinalysis positive for leukocyte esterase EKG shows atrial flutter with RVR Chest x-ray shows trace left pleural effusion. 09/18/2024: Patient seen and examined at the bedside. Patient reports no chest pain, palpitation but continued feel exertional dyspnea and lightheadedness with physical activity. Heart rate is in 130s and patient continues to be in a flutter. Labs show WBC 6.2, hemoglobin 11, platelet count 180, sodium 140, potassium 4.2, BUN 24, creatinine 1.26, magnesium 1.9 09/19/2024: Patient was seen and examined at the bedside. Patient had a successful TTE guided cardioversion to sinus rhythm. Denies chest pain, shortness of breath. WBC 7.138, potassium 4.0, BUN 22, creatinine 1.06. Anticipating discharge within 24 to 48 hours. Physical examination: Vital signs reviewed General: non toxic, no distress Head: atraumatic, normocephalic, symmetric Eyes: EOMI, no lid lag, anicteric sclera, pupils equal round reactive to light ENT: Nose and ears atraumatic Neck: No cervical lymphadenopathy, trachea midline, supple Mouth: no lip lesion, mucus membranes moist Cardiovascular: S1S2 reg, no murmur, positive dorsalis pedis pulse bilateral, trace peripheral edema Lungs: CTA bilateral, no rhonchi, no rales, no accessory muscle use Abdominal: soft, nontender to palpation, no guarding Psych: Alert, oriented, appropriate affect Assessment: #Paroxysmal atrial flutter with RVR on this admission, status post cardioversion #Prior history of paroxysmal atrial flutter, was anticoagulated in the past #Prior history of thrombocytopenia, resolved #Hyperlipidemia #Diabetes melitis type II #Morbid obesity #Obstructive sleep apnea #Urinary tract infection Plan: Continue Home cardiac medications including Lasix 40 mg p.o. daily [id number]: 5 points Continue Eliquis 5 mg p.o. twice daily Continue Lopressor 50 mg 3 times daily Continue amiodarone 400 mg twice daily Most recent echocardiogram was in August 2024 which showed LVEF of 55 to 60% with mild AR and trace to mild MR and TR. Repeat BMP and magnesium tomorrow a.m. Continue cardiac telemetry Dictation was produced using [employer] dictation software. Please excuse any gr ammatical, word or spelling errors. Seamus Cardoso MD PGY 2 Objective - Vital Signs Vital signs: Vital Signs Temp 98.9 F 09/19/24 15:06 Pulse 68 09/19/24 17:02 Resp 17 09/19/24 15:06 BP 108/48 09/19/24 15:06 Pulse Ox 95 09/19/24 15:06 FiO2 Intake & Output 09/19/24 09/19/24 09/20/24 06:59 18:59 06:59 Intake Total 527 Output Total 200 400 Balance -200 127 Weight 97.6 kg Intake: IV 110 Invasive Line 2 10 Oral 417 Output: Urine 200 400 Other: Voiding Method External Catheter External Catheter - Labs CBC & Chem 7: 09/19/24 06:23 09/19/24 06:23 Labs: Abnormal Lab Results - Last 24 Hours (Table) 09/18/24 09/19/24 09/19/24 Range/Units 20:01 06:06 06:23 RBC 3.50 L (4.10-5.20) 10*6/uL Hgb 10.5 L (12.0-15.0) g/dL Hct 34.2 L (37.2-46.3) % MCV 97.7 H (80.0-97.0) fL MCHC 30.7 L (32.0-37.0) g/dL BUN (7-17) mg/dL Creatinine (0.52-1.04) mg/dL Glucose (74-99) mg/dL POC Glucose (mg/dL) 178 H 166 H (70-110) mg/dL Total Protein (6.3-8.2) g/dL Albumin (3.5-5.0) g/dL 09/19/24 09/19/24 09/19/24 Range/Units 06:23 10:40 16:11 RBC (4.10-5.20) 10*6/uL Hgb (12.0-15.0) g/dL Hct (37.2-46.3) % MCV (80.0-97.0) fL MCHC (32.0-37.0) g/dL BUN 22 H (7-17) mg/dL Creatinine 1.06 H (0.52-1.04) mg/dL Glucose 161 H (74-99) mg/dL POC Glucose (mg/dL) 126 H 196 H (70-110) mg/dL Total Protein 5.4 L (6.3-8.2) g/dL Albumin 2.7 L (3.5-5.0) g/dL Microbiology - Last 24 Hours (Table) 09/16/24 14:15 Blood Culture - Preliminary Blood 09/16/24 14:34 Urine Culture - Final Urine,Catheterized Klebsiella pneumoniae
[2024-09-19 19:53] LABS: Glucose,Whole Blood 226 mg/dL (70-110)
[2024-09-19] MEDS: METOPROLOL TARTRATE 50 MG TAB PO SCH (21:05)
[2024-09-20 06:19] LABS: Glucose,Whole Blood 133 mg/dL (70-110)
[2024-09-20 07:09] LABS: Basophils # (A) 0.05 10*3/uL (0.00-0.10); Basophils % (A) 0.7 %; Eosinophils # (A) 0.16 10*3/uL (0.04-0.35); Eosinophils % (A) 2.2 %; HCT 31.0 % (37.2-46.3); HGB 9.8 g/dL (12.0-15.0); Lymphocytes # (A) 1.57 10*3/uL (0.90-5.00); Lymphocytes % (A) 21.6 %; MCH 30.9 pg (27.0-32.0); MCHC 31.6 g/dL (32.0-37.0); MCV 97.8 fL (80.0-97.0); Monocytes # (A) 0.69 10*3/uL (0.20-1.00); Monocytes % (A) 9.5 %; Neutrophils # (A) 4.78 10*3/uL (1.80-7.70); Neutrophils % (A) 65.6 %; Platelet Count 151 10*3/uL (140-440); RBC 3.17 10*6/uL (4.10-5.20); RDW 13.7 % (11.5-14.5); WBC 7.28 10*3/uL (4.50-10.00)
[2024-09-20 07:34] LABS: ALT 6 U/L (4-34); AST 15 U/L (14-36); African American GFR (CKD) 49 (>60 ml/min/1.73 sqM); Albumin 2.6 g/dL (3.5-5.0); Alkaline Phosphatase 97 U/L (38-126); Anion Gap 6 mmol/L; Blood Urea Nitrogen 25 mg/dL (7-17); Calcium 8.5 mg/dL (8.4-10.2); Carbon Dioxide 27 mmol/L (22-30); Chloride 103 mmol/L (98-107); Glucose 119 mg/dL (74-99); Non-African American GFR(CKD) 43 (>60 ml/min/1.73 sqM); Potassium 3.8 mmol/L (3.5-5.1); Sodium 136 mmol/L (137-145); Total Protein 5.2 g/dL (6.3-8.2)
--- NOTE | 2024-09-20 10:24 | P.PN ---
Subjective Progress Note Date: 09/20/24 Patient is a 69-year-old female, followed by Dr. Turner with history of hyperlipidemia, diabetes type 2, hypertension, COPD not on home oxygen, ADRIANA not on CPAP who presents with symptoms of progressive dyspnea with mildly worsening peripheral edema. Patient reports that she is very limited on her physical activity. Patient reports that her symptoms of fatigue associated mild fluttering has been going on for almost a week. Patient reports no chest pain but admits to be feeling lightheadedness with no incidence of fall. Patient also admits to having mild dysuria with urgency and frequent urination. Patient was recently consulted in 08/2024 for exertional dyspnea and atrial flutter with RVR. She reverted back to normal sinus rhythm during her previous hospitalization course and was not discharged on any anticoagulant. During this visit, patient is found to be in atrial flutter with RVR and thus cardiology was consulted. Patient is currently on Cardizem drip and heparin drip. NT proBNP 2430, troponin negative. Patient reports mild improvement in her symptoms since her admission. Denies chest pain, abdominal pain, diarrhea, constipation, focal neurologic deficits. Her home cardiac medications are Lipitor, Lasix and Lopressor. Her most recent echocardiogram was on 08/14/2024 which showed LVEF of 55 to 60% with mild AR and trace to mild MR and TR. Labs and images on this admission: WBC 7.3, hemoglobin 11.3, platelet 195, sodium 139, potassium 3.1, BUN 20, creatinine 2.96, magnesium 1.1, AST 20, ALT 8, NT proBNP 2430 Urinalysis positive for leukocyte esterase EKG shows atrial flutter with RVR Chest x-ray shows trace left pleural effusion. 09/18/2024: Patient seen and examined at the bedside. Patient reports no chest pain, palpitation but continued feel exertional dyspnea and lightheadedness with physical activity. Heart rate is in 130s and patient continues to be in a f lutter. Labs show WBC 6.2, hemoglobin 11, platelet count 180, sodium 140, potassium 4.2, BUN 24, creatinine 1.26, magnesium 1.9 09/19/2024: Patient was seen and examined at the bedside. Patient had a successful TTE guided cardioversion to sinus rhythm. Denies chest pain, shortness of breath. WBC 7.138, potassium 4.0, BUN 22, creatinine 1.06. Anticipating discharge within 24 to 48 hours. 09/20/2024: Patient was seen and examined at the bedside. Patient reports no acute events overnight. States improvement in her breathing and denies chest pain. Patient is status post successful AMRIA ELENA guided cardioversion yesterday. Currently sinus rhythm. Anticipated discharge within 24 hours. Sodium 136, potassium 3.8, BUN 25, creatinine 1.28 Physical examination: Vital signs reviewed General: non toxic, no distress Head: atraumatic, normocephalic, symmetric Eyes: EOMI, no lid lag, anicteric sclera, pupils equal round reactive to light ENT: Nose and ears atraumatic Neck: No cervical lymphadenopathy, trachea midline, supple Mouth: no lip lesion, mucus membranes moist Cardiovascular: S1S2 reg, no murmur, positive dorsalis pedis pulse bilateral, trace peripheral edema Lungs: CTA bilateral, no rhonchi, no rales, no accessory muscle use Abdominal: soft, nontender to palpation, no guarding Psych: Alert, oriented, appropriate affect Assessment: #Paroxysmal atrial flutter with RVR on this admission, status post cardioversion on 09/19/2024 #Prior history of paroxysmal atrial flutter, was anticoagulated in the past #Prior history of thrombocytopenia, resolved #Hyperlipidemia #Diabetes melitis type II #Morbid obesity #Obstructive sleep apnea #Urinary tract infection Plan: Continue Home cardiac medications including Lasix 40 mg p.o. daily [id number]: 5 points Continue Eliquis 5 mg p.o. twice daily Continue Lopressor 50 mg 3 times daily Continue amiodarone 400 mg twice daily until 09/24/2024, then decrease dose to 200 mg twice daily for 1 week and then 200 mg once daily thereafter. Most recent echocardiogram was in August 2024 which showed LVEF of 55 to 60% with mild AR and trace to mild MR and TR. Repeat BMP and magnesium tomorrow a.m. Continue cardiac telemetry Patient is otherwise optimized for discharge from cardiology standpoint. Follow-up with Dr. Turner within 1 to 2 weeks postdischarge. Dictation was produced using [employer] dictation software. Please excuse any grammatical, word or spelling errors. Seamus Cardoso MD PGY 2 Objective - Vital Signs Vital signs: Vital Signs Temp 98.4 F 09/20/24 09:20 Pulse 64 09/20/24 09:36 Resp 16 09/20/24 09:20 BP 95/49 09/20/24 09:20 Pulse Ox 98 09/20/24 09:20 FiO2 Intake & Output 09/19/24 09/20/24 09/20/24 18:59 06:59 18:59 Intake Total 477 10 118 Output Total 400 150 Balance 77 -140 118 Weight 93 kg Intake: IV 60 10 Invasive Line 2 10 10 Oral 417 118 Output: Urine 400 150 Other: Voiding Method External Catheter External Catheter External Catheter - Labs CBC & Chem 7: 09/20/24 06:16 09/20/24 06:16 Labs: Abnormal Lab Results - Last 24 Hours (Table) 09/19/24 09/19/24 09/19/24 Range/Units 10:40 16:11 19:52 RBC (4.10-5.20) 10*6/uL Hgb (12.0-15.0) g/dL Hct (37.2-46.3) % MCV (80.0-97.0) fL MCHC (32.0-37.0) g/dL Sodium (137-145) mmol/L BUN (7-17) mg/dL Creatinine (0.52-1.04) mg/dL Glucose (74-99) mg/dL POC Glucose (mg/dL) 126 H 196 H 226 H (70-110) mg/dL Total Protein (6.3-8.2) g/dL Albumin (3.5-5.0) g/dL 09/20/24 09/20/24 09/20/24 Range/Units 06:16 06:16 06:18 RBC 3.17 L (4.10-5.20) 10*6/uL Hgb 9.8 L (12.0-15.0) g/dL Hct 31.0 L (37.2-46.3) % MCV 97.8 H (80.0-97.0) fL MCHC 31.6 L (32.0-37.0) g/dL Sodium 136 L (137-145) mmol/L BUN 25 H (7-17) mg/dL Creatinine 1.28 H (0.52-1.04) mg/dL Glucose 119 H (74-99) mg/dL POC Glucose (mg/dL) 133 H (70-110) mg/dL Total Protein 5.2 L (6.3-8.2) g/dL Albumin 2.6 L (3.5-5.0) g/dL Microbiology - Last 24 Hours (Table) 09/16/24 14:15 Blood Culture - Preliminary Blood
[2024-09-20 11:56] VITALS: BMI 33.0
[2024-09-20 12:19] LABS: Glucose,Whole Blood 192 mg/dL (70-110)
[2024-09-20 12:20] VITALS: BP 102/63; RESP 18; TEMP 98.7
[2024-09-20 12:31] VITALS: PULSE 60
--- NOTE | 2024-09-20 13:20 | P.PN ---
Subjective 69-year-old female with a history of angina, COPD not on home oxygen, diabetes mellitus, hyperlipidemia, hypertension and sleep apnea, presenting to the ED with complaints of fatigue and shortness of breath on exertion. Patient reports feeling weak and fatigued for the past two weeks. She initially reports shortness of breath on exertion however she is currently experiencing shortness of breath at rest as well. Patient reports orthopnea. She reports noticing bilateral swelling in her legs in the past few weeks. Patient denies chest pain and palpitations but admits to feeling lightheadedness with standing but no incident of recent fall. Patient also reports to having dysuria with primary urgency and frequency. Of note patient known to cardiology due to having leaky valves as well as was recently consulted in 08/2024 for exertional dyspnea and atrial flutter with RVR. She reverted back to normal sinus rhythm during her previous hospitalization course and was not discharged on any anticoagulant Patient not on oxygen at home. She reports being an ex-smoker of 15 years. In the ED, patient noted to be in active atrial flutter for which cardiology consulted and she was placed on IV heparin and diltiazem. Patient also placed on IV ceftriaxone for UTI symptoms. lab work significant for WBC 7.31, hemoglobin 11.3, sodium 139, potassium 3.1, serial troponins less than 0.012. Urine cloudy in appearance and positive for >182 white blood cells, with occasional bacteria and hyaline casts. Trace blood and protein also evident. A n EKG obtained was significant for atrial flutter with rapid ventricular response. Furthermore a chest x-ray obtained ruled out acute cardiopulmonary processes. Patient currently admitted to medical team with consults from Cardiology. 09/18: Patient seen at bedside. Reported feeling nauseous. Denied chest pain and palpitations. Diarrhea and vomiting completely resolved. Slept well last night. Currently hemodynamically stable. 09/19. Patient seen at bedside. Underwent TTE and cardioversion tolerated procedure well. Status post cardioversion,, patient returned to normal sinus using 200 J at first attempt. 09/20. Patient seen at bedside. No significant events overnight. Pending rehab for discharge. Pertinent positives and negatives discussed above, a complete review of systems was preformed and all the other sytems were negative. Vitals Signs Reviewed. Heart rate 60, BP 102/63, temp 98.7, RR 18. General: non toxic, no distress, appears at stated age, normal weight Derm: no unusual rashes/lesions, warm Head: atraumatic, normocephalic, symmetric Eyes: EOMI, no lid lag, anicteric sclera, pupils equal round reactive to light ENT: Nose and ears atraumatic Neck: No cervical lymphadenopathy, trachea midline, supple Mouth: no lip lesion, mucus membranes moist Cardiovascular: S1S2 reg, no murmur, positive dorsalis pedis pulse bilateral, no edema Lungs: Decreased air entry bilaterally, no rhonchi, no rales, no accessory muscle use Abdominal: soft, nontender to palpation, no guarding Ext: muscle strength 5 out of 5 in all 4 extremities grossly, no gross muscle atrophy, no contractures, Neuro: CN II-XI grossly intact, no gross focal neuro deficits Psych: Alert, oriented, appropriate affect Data Reviewed Today: 09/19/2024 Patient Labs: WBC 7.28, hemoglobin 9.8, sodium 136, creatinine 1.28 Urine cultures positive for Klebsiella pneumoniae Imaging: No new images Assessment and Plan #Paroxysmal atrial flutter with RVR on this admission -Increase Lopressor to 50 mg 3 times daily, as per Cardiology -continue Amiodarone 400mg as per cardiology - If rate not controlled, patient will have TTE guided cardioversion performed by Cardiology -Continue Eliquis 5 mg p.o. twice daily -continue home cardiac medications including Lasix 40 mg p.o. daily -[id number]: 5 points -S/p cardioversion am TTE 09/19 rhythm returned to sinus new recorded ejection fraction 35 to 40% previously 55 to 60% August 2024 Patient currently hypotensive 88/51 pending restabilization -Continue cardiac telemetry -Cardiology on consult, appreciate further recommendations. #Shortness of breath, multifactorial. Attributed to underlying urine tract infection complicated by further development of a flutter/fib with RVR at time of admission. The patient is currently on room air oxygen. Chest x-ray remains clear. Rule out underlying CHF. -Currently on room air -Continue tiotropium and Symbicort and albuterol rescue inhaler, as per pulmonology Pulmonology on consult, appreciate further recommendations #Electrical derangement - hypokalemia and hypomagnesemia - repleat Potassium 60mmol - repleat Magnesium - currently hypomagnesemia and hypokalemia resolved - K 4.2, Mag 1.9 - Repeat BMP and Magnesium tomorrow a.m #Urinary tract infections -IV ceftriaxone 2g Q24H, (started 09/17, day2 of 5) -Cultures positive for Klebsiella pneumoniae, continue duration of antibiotics. Chronic Conditions: #Hyperlipidemia #Diabetes melitis type II #Morbid obesity #Obstructive sleep apnea - Continue F: None E: Repleat potassium and magnesium as needed N: N.P.O after midnight DVT ppx: on apaxaban 5mg BID GI ppx: Pepcid Dispo:Patient medically managed for discharged, pending rehab. Objective - Vital Signs Vital signs: Vital Signs Temp 98.7 F 09/20/24 12:00 Pulse 60 09/20/24 12:30 Resp 18 09/20/24 12:00 BP 102/63 09/20/24 12:00 Pulse Ox 98 09/20/24 12:00 FiO2 Intake & Output 09/19/24 09/20/24 09/20/24 18:59 06:59 18:59 Intake Total 477 10 358 Output Total 400 150 Balance 77 -140 358 Weight 93 kg 93 kg Intake: IV 60 10 Invasive Line 2 10 10 Oral 417 358 Output: Urine 400 150 Other: Voiding Method External Catheter External Catheter External Catheter - Labs CBC & Chem 7: 09/20/24 06:16 09/20/24 06:16 Labs: Abnormal Lab Results - Last 24 Hours (Table) 09/19/24 09/19/24 09/20/24 Range/Units 16:11 19:52 06:16 RBC 3.17 L (4.10-5.20) 10*6/uL Hgb 9.8 L (12.0-15.0) g/dL Hct 31.0 L (37.2-46.3) % MCV 97.8 H (80.0-97.0) fL MCHC 31.6 L (32.0-37.0) g/dL Sodium (137-145) mmol/L BUN (7-17) mg/dL Creatinine (0.52-1.04) mg/dL Glucose (74-99) mg/dL POC Glucose (mg/dL) 196 H 226 H (70-110) mg/dL Total Protein (6.3-8.2) g/dL Albumin (3.5-5.0) g/dL 09/20/24 09/20/24 09/20/24 Range/Units 06:16 06:18 12:14 RBC (4.10-5.20) 10*6/uL Hgb (12.0-15.0) g/dL Hct (37.2-46.3) % MCV (80.0-97.0) fL MCHC (32.0-37.0) g/dL Sodium 136 L (137-145) mmol/L BUN 25 H (7-17) mg/dL Creatinine 1.28 H (0.52-1.04) mg/dL Glucose 119 H (74-99) mg/dL POC Glucose (mg/dL) 133 H 192 H (70-110) mg/dL Total Protein 5.2 L (6.3-8.2) g/dL Albumin 2.6 L (3.5-5.0) g/dL Microbiology - Last 24 Hours (Table) 09/16/24 14:15 Blood Culture - Preliminary Blood
--- NOTE | 2024-09-20 14:35 | P.DS ---
Providers Date of admission: 09/16/24 16:23 Attending physician: Saeid Carney MD Consults: 09/16/24 16:23 Consult Physician Urgent Consulting Provider: Francisco Rodríguez Consult Reason/Comments: Atrial flutter with RVR Do you want consulting provider notified?: Yes Primary care physician: Mamadou Moustapha [facility] Course: Discharge Diagnosis: Atrial flutter Hospital Course: 69-year-old female with a history of angina, COPD not on home oxygen, diabetes mellitus, hyperlipidemia, hypertension and sleep apnea, presenting to the ED with complaints of fatigue and shortness of breath on exertion. Patient reports feeling weak and fatigued for the past two weeks. She initially reports shortness of breath on exertion however she is currently experiencing shortness of breath at rest as well. Patient reports orthopnea. She reports noticing bilateral swelling in her legs in the past few weeks. Patient denies chest pain and palpitations but admits to feeling lightheadedness with standing but no incident of recent fall. Patient also reports to having dysuria with primary urgency and frequency. Of note patient known to cardiology due to having leaky valves as well as was recently consulted in 08/2024 for exertional dyspnea and atrial flutter with RVR. She reverted back to normal sinus rhythm during her previous hospitalization course and was not discharged on any anticoagulant Patient not on oxygen at home. She reports being an ex-smoker of 15 years. In the ED, patient noted to be in active atrial flutter for which cardiology consulted and she was placed on IV heparin and diltiazem. Patient also placed on IV ceftriaxone for UTI symptoms. lab work significant for WBC 7.31, hemoglobin 11.3, sodium 139, potassium 3.1, serial troponins less than 0.012. Urine cloudy in appearance and positive for >182 white blood cells, with occasional bacteria and hyaline casts. Trace blood and protein also evident. An EKG obtained was significant for atrial flutter with rapid ventricular response. Furthermore a chest x-ray obtained ruled out acute cardiopulmonary processes. Patient currently admitted to medical team with consults from Cardiology. During the course of her hospital stay, patient medically evaluated and managed by cardiology. Patient placed on amiodarone 400 mg and Lopressor dose increased to 25 mg twice daily for respective rate and rhythm control. Patient underwent a transthoracic echocardiogram guided cardioversion, which successfully restored sinus rhythm on the first attempt. The TTE revealed a newly reduced left ventricular ejection fraction of 35 to 40%, compared to previously reported EF of 55 to 60% on August 2024. Patient is currently in stable sinus rhythm and reports significant symptomatic improvement. Cardiac medications have been reviewed optimized and adjusted accordingly in response to patient's current cardiac condition. Patient also found to have urine suspicious for UTI positive for Klebsiella. Patient placed on IV antibiotics. Patient currently asymptomatic. At time of discharge, patient medically optimized and hemodynamically stable for rehab. Patient will be discharged on amiodarone tapering dose, metoprolol 25 mg twice a day, and apixaban 5 mg twice daily. Patient will be followed up with cardiology as outpatient in 1 week's time. Patient to follow-up with PCP as outpatient. Patient seen and examined at bedside. 09/20/2024. Vital signs reviewed and stable. PHYSICAL EXAMINATION: General: non toxic, no distress Head: atraumatic, normocephalic, symmetric Eyes: EOMI, no lid lag, anicteric sclera, pupils equal round reactive to light ENT: Nose and ears atraumatic Neck: No cervical lymphadenopathy, trachea midline, supple Mouth: no lip lesion, mucus membranes moist Cardiovascular: S1S2 reg, trace peripheral edema Lungs: normal breath sounds, no rhonchi, no rales, no accessory muscle use Abdominal: soft, nontender to palpation, no guarding Psych: Alert, oriented, appropriate affect A total of time 30 minutes of time were spent preparing this complex discharge summary. Patient was discharged on 09/20/2024. Plan - Discharge Summary New Discharge Prescriptions: New Amiodarone [Cordarone] See Taper PO BID 30 Days #56 tab Apixaban [Eliquis] 5 mg PO BID 30 Days #60 tab Metoprolol Tartrate 25 mg PO BID 30 Days #60 tab Continue Tiotropium 2.5 Mcg/Puff [Spiriva Respimat 2.5 Mcg] 2 puff INHALATION RT-DAILY Albuterol Sulfate [Albuterol Sulfate Hfa] 2 puff INHALATION RT-QID PRN PRN Reason: Shortness Of Breath metFORMIN HCL 1,000 mg PO BID Atorvastatin Calcium [Lipitor] 40 mg PO HS Budesonide/Formoterol Fumarate [Symbicort 160-4.5 Mcg Inhaler] 2 puff INHALATION RT-BID Furosemide [Lasix] 40 mg PO DAILY sitaGLIPtin [Januvia] 100 mg PO DAILY Albuterol Nebulized [Ventolin Nebulized] 2.5 mg INHALATION RT-Q6H QUEtiapine FUMARATE [SEROquel] 25 mg PO HS Nitroglycerin Sl Tabs [Nitrostat] 0.4 mg SL Q5M PRN PRN Reason: Chest Pain Discontinued Metoprolol Tartrate [Lopressor] 12.5 mg PO BID Discharge Medication List Tiotropium 2.5 Mcg/Puff [Spiriva Respimat 2.5 Mcg] 2 puff INHALATION RT-DAILY 08/25/21 [History] Albuterol Sulfate [Albuterol Sulfate Hfa] 2 puff INHALATION RT-QID PRN 09/19/21 [History] Atorvastatin Calcium [Lipitor] 40 mg PO HS 12/07/21 [History] QUEtiapine FUMARATE [SEROquel] 25 mg PO HS 12/07/21 [History] metFORMIN HCL 1,000 mg PO BID 12/07/21 [History] Budesonide/Formoterol Fumarate [Symbicort 160-4.5 Mcg Inhaler] 2 puff INHALATION RT-BID 02/17/22 [History] Furosemide [Lasix] 40 mg PO DAILY 08/01/22 [History] sitaGLIPtin [Januvia] 100 mg PO DAILY 08/01/22 [History] Nitroglycerin Sl Tabs [Nitrostat] 0.4 mg SL Q5M PRN 08/05/24 [History] Albuterol Nebulized [Ventolin Nebulized] 2.5 mg INHALATION RT-Q6H 09/16/24 [History] Amiodarone [Cordarone] See Taper PO BID 30 Days #56 tab 09/20/24 [Rx] Apixaban [Eliquis] 5 mg PO BID 30 Days #60 tab 09/20/24 [Rx] Metoprolol Tartrate 25 mg PO BID 30 Days #60 tab 09/20/24 [Rx] Follow up Appointment(s)/Referral(s): Axel Aguilar MD [STAFF PHYSICIAN] - 1 Week Mamadou Gerard DO [Primary Care Provider] - 1-2 days [facility] [NON-STAFF] - Patient Instructions/Handouts: Amiodarone (By mouth), Atrial Flutter (GEN) Discharge/Stand Alone Forms: Who Do I Call?, [facility] Home Discharge Disposition: TRANSFER TO SNF/ECF
--- NOTE | 2024-09-20 20:41 | P.PN ---
Subjective Progress Note Date: 09/20/24 This is a 69-year-old female patient who came into the hospital feeling weak and fatigued and her symptoms have been going on for the past 2 weeks. She also reports some shortness of breath and ongoing dysuria. No cough. No sputum production. No chest pain. No palpitations. No previous history of cardiac arrhythmias. Nevertheless, the patient has had previous history of urinary tract infection and the most recent infection was on 07/31/2024 attributed to an E. coli UTI. In the emergency, the patient was on room air oxygen. Chest x-ray was noted and it showed no acute cardiopulmonary abnormalities. No focal consolidation or airspace disease. The patient's white cell count is 7.3 with hemoglobin 9.3 and a platelet count of 195. BUN is 21 with a creatinine of 1.01. Electrolytes are all within normal limits. proBNP level was 2430. Troponins were negative. The patient was found to be in atrial flutter. At the same time, there is a concern for urine tract infection as the UA was abnormal consistent with UTI. Started on IV Rocephin. Seen by cardiology. Started on anticoagulation with Eliquis. She is also on metoprolol 25 mg 3 times daily for rate control. She is also on a combination of Symbicort and Spiriva and Ventolin rescue inhaler on as-needed basis. Urine cultures and blood cultures still pending for now. She is on Lasix 40 mg p.o. daily. Resting comfortably i n bed. Denies having any other complaints. On 09/18/2024, the patient is being seen for a follow-up. The patient was hospitalized for worsening shortness of breath, UTI and a flutter. The urine culture is showing gram-negative bacillus and the patient remains on IV Rocephin. Her heart rate is still fluctuating and the patient is seen by cardiology. The patient is currently on anticoagulation with Eliquis 5 mg p.o. twice daily. The patient is also on amiodarone 4 mg p.o. twice a day and met oprolol 50 mg p.o. 3 times daily. Rest of the medication remains unchanged. Respiratory status is stable and patient remains on room air oxygen with a pulse ox of 99%. Her EKG from today is still showing atrial flutter with some mild tachycardia with a heart rate of 105. No fever. No hypotension. No other complaints otherwise for now. On today's evaluation of 09/19/2024, the patient is being seen for a follow-up. The patient underwent a successful cardioversion for atrial flutter and the patient is currently back to normal sinus rhythm. This was done using a 200 J and it was successful in the first event. Currently, she is a bit sedated. Meanwhile, the urine culture was positive for Klebsiella pneumoniae, sensitive to Rocephin and the patient remains on IV Rocephin. Hemodynamically stable. No significant respiratory distress and the patient currently is on Symbicort and Spiriva as maintenance regarding her COPD and ventilation and inhaler on a straight basis. Rest of the medication have been or resumed. She is resting comfortably in bed. Family is at the bedside. On 09/20/2024, the patient remains in a normal sinus rhythm post cardioversion. Hemodynamically stable. No fever or chills. No altered mentation. Complaining of fatigue and weakness. No other specific complaints otherwise for now. Urine culture was positive for Klebsiella pneumoniae and the patient remains on IV Rocephin. Blood work shows a white cell count of 7.2 with a hemoglobin 9.8 with a platelet count of 151. BUN 25 with a creatinine 1.28 and a sodium level is 136 and a potassium level is at 3.8. No other new complaints otherwise for now. The patient is being considered for discharge today and obviously the patient will be discharged on amiodarone and metoprolol and anticoagulation with Eliquis. Rest of the home medication will be resumed. Antibiotics per medicine. Objective - Vital Signs Vital signs: Vital Signs Temp 98.4 F 09/20/24 09:20 Pulse 64 09/20/24 09:36 Resp 16 09/20/24 09:20 BP 95/49 09/20/24 09:20 Pulse Ox 98 09/20/24 09:20 FiO2 Intake & Output 09/19/24 09/20/24 09/20/24 18:59 06:59 18:59 Intake Total 477 10 118 Output Total 400 150 Balance 77 -140 118 Weight 93 kg Intake: IV 60 10 Invasive Line 2 10 10 Oral 417 118 Output: Urine 400 150 Other: Voiding Method External Catheter External Catheter External Catheter - Exam The patient appeared well nourished and normally developed. Vital signs as documented. Head exam is unremarkable. No scleral icterus or corneal arcus noted. Neck is without jugular venous distension, thyromegaly, or carotid bruits. Carotid upstrokes are brisk bilaterally. Lungs are clear to auscultation and percussion. Cardiac exam reveals the PMI to be normally sized and situated. Rhythm is regular. First and second heart sounds normal. No murmurs, rubs or gallops. The rhythm is atrial flutter with a controlled rate Abdominal exam reveals normal bowel sounds, no masses, no organomegaly and no aortic enlargement. Extremities are nonedematous and both femoral and pedal pulses are normal. Examination of the skin revealed no evidence of significant rashes, suspicious appearing nevi or other concerning lesions. Neurologically, the patient is awake and alert and the patient does not have any focal neurological deficit. Cranial nerves are essentially intact. - Labs CBC & Chem 7: 09/20/24 06:09/20/24 06:16 Labs: Abnormal Lab Results - Last 24 Hours (Table) 09/19/24 09/19/24 09/19/24 Range/Units 10:40 16:11 19:52 RBC (4.10-5.20) 10*6/uL Hgb (12.0-15.0) g/dL Hct (37.2-46.3) % MCV (80.0-97.0) fL MCHC (32.0-37.0) g/dL Sodium (137-145) mmol/L BUN (7-17) mg/dL Creatinine (0.52-1.04) mg/dL Glucose (74-99) mg/dL POC Glucose (mg/dL) 126 H 196 H 226 H (70-110) mg/dL Total Protein (6.3-8.2) g/dL Albumin (3.5-5.0) g/dL 09/20/24 09/20/24 09/20/24 Range/Units 06:16 06:16 06:18 RBC 3.17 L (4.10-5.20) 10*6/uL Hgb 9.8 L (12.0-15.0) g/dL Hct 31.0 L (37.2-46.3) % MCV 97.8 H (80.0-97.0) fL MCHC 31.6 L (32.0-37.0) g/dL Sodium 136 L (137-145) mmol/L BUN 25 H (7-17) mg/dL Creatinine 1.28 H (0.52-1.04) mg/dL Glucose 119 H (74-99) mg/dL POC Glucose (mg/dL) 133 H (70-110) mg/dL Total Protein 5.2 L (6.3-8.2) g/dL Albumin 2.6 L (3.5-5.0) g/dL Microbiology - Last 24 Hours (Table) 09/16/24 14:15 Blood Culture - Preliminary Blood Assessment and Plan Plan: Shortness of breath, multifactorial. Attributed to underlying urine tract infection complicated by further development of a flutter/fib with RVR at time of admission. The patient is currently on room air oxygen. Chest x-ray remains clear. Rule out underlying CHF. proBNP level was elevated at time of admission. Most recent echocardiogram from August 2024 showed an ejection fraction of 55 to 60% with mild AR, mild MR and TR. post cardioversion her current cardiac rhythm is sinus. Resting comfortably in bed. No significant shortness of breath. Paroxysmal atrial flutter with RVR at the time of admission. Patient is currently on amiodarone 400 mg p.o. twice a day and metoprolol 50 mg twice daily times daily and the patient was started on anticoagulation with Eliquis. The patient underwent a successful cardioversion and the patient is currently back in normal sinus rhythm. Urine tract infection, secondary to Klebsiella pneumoniae, gram-negative urine tract infection the patient is currently on IV Rocephin Diabetes mellitus type 2 Hyperlipidemia Obesity, previous Chinedu-en-Y gastric bypass surgery Obstructive sleep apnea, not utilizing CPAP therapy. COPD which is currently inactive and stable and the patient is currently on a combination of tiotropium, Symbicort and albuterol rescue inhaler on a as needed basis. Previous history of pancreatitis back in 2018 Peripheral neuropathy, likely related to her diabetes mellitus Diabetes mellitus type 2 Varicose veins Degenerative arthritis Gastric ulcer, no recent bleeding Status post left-sided thoracentesis on 09/24/2021 with removal of 1.25 L Plan Patient is currently on room air oxygen Patient to be discharged, choice of antibiotics per medicine Urine cultures positive for Klebsiella pneumoniae Post cardioversion and patient's cardiac rhythm is sinus. She is currently on Eliquis 5 mg p.o. twice daily. Lopressor 50 mg p.o. twice daily times daily in combination with amiodarone 400 mg p.o. daily Oral Lasix 40 mg p.o. daily Resume continue tiotropium and Symbicort and albuterol rescue inhaler management basis. Will follow-up on outpatient basis regarding COPD
== END 2024-09-20 16:07 | DRG 690 ==
LOC: EC 13:14 → 3SCARD 16:23
PROVIDERS: ADMIT Internal Medicine; ATTEND Internal Medicine
PROC: 3E033RZ Introduction of Antiarrhythmic into Peripheral Vein, Percutaneous Approach (ICD-10-PCS; 2024-09-16)
PROC: B24BZZ4 Ultrasonography of Heart with Aorta, Transesophageal (ICD-10-PCS; principal; 2024-09-19 08:30)
PROC: 5A2204Z Restoration of Cardiac Rhythm, Single (ICD-10-PCS; principal; 2024-09-19 08:30)
DX: N39.0 Urinary tract infection, site not specified (principal); I48.3 Typical atrial flutter; B96.1 Klebsiella pneumoniae [K. pneumoniae] as the cause of diseases classified elsewhere; E11.42 Type 2 diabetes mellitus with diabetic polyneuropathy; E66.01 Morbid (severe) obesity due to excess calories; J44.9 Chronic obstructive pulmonary disease, unspecified; I10 Essential (primary) hypertension; F32.A Depression, unspecified; K25.9 Gastric ulcer, unspecified as acute or chronic, without hemorrhage or perforation; E78.5 Hyperlipidemia, unspecified; G47.33 Obstructive sleep apnea (adult) (pediatric); Z68.33 Body mass index [BMI] 33.0-33.9, adult; E83.42 Hypomagnesemia; E87.6 Hypokalemia; K21.9 Gastro-esophageal reflux disease without esophagitis; I83.90 Asymptomatic varicose veins of unspecified lower extremity; M15.9 Polyosteoarthritis, unspecified; F41.9 Anxiety disorder, unspecified; Z96.653 Presence of artificial knee joint, bilateral; Z98.84 Bariatric surgery status; Z87.891 Personal history of nicotine dependence; Z87.440 Personal history of urinary (tract) infections; Z79.899 Other long term (current) drug therapy; Z79.84 Long term (current) use of oral hypoglycemic drugs; Z79.51 Long term (current) use of inhaled steroids; Z88.8 Allergy status to other drugs, medicaments and biological substances; Z88.0 Allergy status to penicillin
CPT/HCPCS: 36415; 71046; 80048; 80053; 81001; 83605; 83735; 83880; 84439; 84443; 84481; 84484; 85025; 85610; 85730; 87040; 87077; 87086; 87186; 92960; 93005; 93312; 93325; 94640; 94760; 96365; 96366; 96368; 96375; 99291